=== PATIENT | female | born 1960 | race African-American/Black ===

== ENCOUNTER 2017-01-05 19:06 | Emergency (ER) | payer MEDICARE, MEDICAID ==
[~2017-01-05] VITALS: Ht 157.5 cm; Wt 90.0 kg
[~2017-01-05 19:06] MED LIST: ATOR40TA16 PO; DEPA500T3 PO; DETR2CAP PO; FURO1TAB62 PO; ISOS30TA3 PO; L-CA500C2 PO; LISI-515 PO; LORA10TA PO; METF1000 PO; METO-309 PO; MIRA33504 PO; TRAD5TAB PO; VITA100064 PO
[2017-01-05 19:08] VITALS: BP 234/110; PULSE 84; RESP 18; TEMP 97.9; O2SAT 98
--- NOTE | 2017-01-05 19:29 | PD ---
HPI Chief Complaint: Skin Problem Time Seen by Provider: 19:29 Travel History International Travel<30 days: No Contact w/Intl Traveler<30days: No Traveled to known affect area: No History of Present Illness HPI 56-year-old female with history of hypertension and diabetes presents to emergency department for evaluation of an urticarial-like rash on her neck. Patient is uncertain if she was bitten by an insect. Does not recall any new creams or exposures. Denies any tongue swelling or sensation of shortness of breath. Patient does not have the rash anywhere else. She has no other symptoms to report. PFSH Past Medical History Arthritis: Yes Asthma: No Autoimmune Disease: No Blood Disorders: No Bipolar Disorder: Yes Anxiety: No Depression: Yes Heart Rhythm Problems: No Cancer: Yes (history of renal carcinoma) Cardiovascular Problems: Yes (HTN) High Cholesterol: No Chemotherapy: No Chest Pain: No Congestive Heart Failure: No COPD: No Cerebrovascular Accident: No Diabetes: Yes Diminished Hearing: No Endocrine: Yes Gastrointestinal Disorders: No GERD: No Glaucoma: No Genitourinary: No Headaches: No Hepatitis: No Hiatal Hernia: No Hypertension: Yes Immune Disorder: No Kidney Stones: No Musculoskeletal: No Neurologic: No Psychiatric: Yes (Schizoaffective Disorder) Reproductive: No Respiratory: No Immunizations Current: No Migraines: No Myocardial Infarction: No Radiation Therapy: No Renal Failure: No Schizophrenia: Yes Seizures: Yes (patient admits to one seizure) Sickle Cell Disease: No Sleep Apnea: No Thyroid Disease: Yes (HYPOTHYROID) Ulcer: No Menopausal: Yes Tubal Ligation: Yes Past Surgical History Abdominal Surgery: Yes (CHOLECYSTECTOMY) AICD: No Appendectomy: No Arteriovenous Shunt: No Cardiac Surgery: No Cholecystectomy: Yes Ear Surgery: No Endocrine Surgery: No Eye Surgery: No Genitourinary Surgery: Yes (RT KIDNEY REMOVED) Gynecologic Surgery: Yes (TUBAL LIGATION) Insulin Pump: No Joint Replacement: No Neurologic Surgery: No Oral Surgery: No Pacemaker: No Thoracic Surgery: No Other Surgery: Yes (RENAL SURGERY FOR RENAL CANCER) Social History Alcohol Use: No Tobacco Use: No (quit 2014) Substance Use: No Allergies-Medications (Allergen,Severity, Reaction): Coded Allergies: Haldol (Verified Allergy, Severe, 01/05/17) Zyprexa (Verified Allergy, Severe, 01/05/17) Zoloft (Verified Allergy, Unknown, 01/05/17) Reported Meds & Prescriptions Reported Meds & Active Scripts Active Zantac (Ranitidine HCl) 150 Mg Tab 150 Mg PO BID 3 Days Loratadine 10 Mg Tab 10 Mg PO DAILY Isosorbide Mononitrate ER (Isosorbide Mononitrate) 30 Mg Daniela 30 Mg PO DAILY Tradjenta (Linagliptin) 5 Mg Tab 5 Mg PO DAILY l-Carnitine (Levocarnitine) 500 Mg Cap 500 Mg PO DAILY Atorvastatin (Atorvastatin Calcium) 40 Mg Tab 40 Mg PO HS Metformin (Metformin HCl) 1,000 Mg Tab 1,000 Mg PO BIDPC With meals Reported Miralax Powder (Polyethylene Glycol 3350 Powder) 17 Gm Powd 17 Gm PO DAILY Mix and dissolve one measuring cap-ful (17 grams) in water or juice. Lopressor (Metoprolol Tartrate) 50 Mg Tab 25 Mg PO DAILY Lisinopril 20 Mg Tab 20 Mg PO DAILY Lasix (Furosemide) 20 Mg Tab 20 Mg PO DAILY Depakote ER (Divalproex Sodium) 500 Mg Daniela 1,500 Mg PO HS Detrol LA (Tolterodine Tartrate) 2 Mg Cap 2 Mg PO DAILY Vitamin D (Cholecalciferol) 1,000 Unit Tab 1,000 Units PO DAILY Review of Systems Except as stated in HPI: all other systems reviewed are Neg Physical Exam Narrative GENERAL: Well-nourished, well-developed female patient, ambulatory no acute distress SKIN: Warm and dry. Scattered, confluent subcentimeter raised, blanchable wheal on the anterior neck. No vesicle or pustule formation. This crosses the midline. HEAD: Normocephalic. EYES: No scleral icterus. No injection or drainage. ENT: Mucosa pink and moist. No erythema or exudates. No uvular edema. No uvular , palatal, or tonsillar deviation. Airway patent. Nasal turbinates appear normal without nasal blood, purulent drainage or septal hematoma. NECK: Supple, trachea midline. No JVD or lymphadenopathy. CARDIOVASCULAR: Regular rate and rhythm without murmurs, gallops, or rubs. RESPIRATORY: Breath sounds equal bilaterally. No accessory muscle use. Data Data Last Documented VS Vital Signs Date Time Temp Pulse Resp B/P Pulse Ox O2 Delivery O2 Flow Rate FiO2 01/05/17 20:16 194/93 01/05/17 19:08 97.9 84 18 98 Orders Diphenhydramine (Benadryl) (01/05/17 19:30) Famotidine (Pepcid) (01/05/17 19:30) Diphenhydramine (Benadryl) (01/05/17 19:30) Clonidine (Catapres) (01/05/17 19:30) MDM Medical Decision Making Medical Screen Exam Complete: Yes Emergency Medical Condition: Yes Medical Record Reviewed: Yes Differential Diagnosis Insect bite versus urticaria versus local reaction versus folliculitis versus contact dermatitis Narrative Course 56 year-old female presents to emergency department for evaluation of a rash on her neck. This actually looks like it may be a local reaction to insect bites. Patient is given Benadryl and Pepcid here. She is advised to continue Benadryl as needed for itch and rash at home. Patient is hypertensive here but completely asymptomatic. She is given 0.1 clonidine. Upon reassessment this is decreased and she is discharged home. She agrees to return immediately with any acute worsening of symptoms. Diagnosis Primary Impression: Urticaria Additional Impression: hypertension Referrals: Primary Care Physician Patient Instructions: General Instructions, Urticaria (ED) Additional Instructions: Do not scratch the area Continue Benadryl as directed on the package as needed for itching Follow-up with primary care provider Return immediately with any acute worsening of symptoms Med/Other Pt SpecificInfo: Prescription(s) given Scripts Ranitidine (Zantac)150 Mg Etr940 Mg PO BID 3 Days Ref 0 Prov:Antionette Dupree 01/05/17 Disposition: 01 DISCHARGE HOME Condition: Stable Antionette Dupree Jan 05, 2017 19:29
[2017-01-05] MEDS ORDERED: cloNIDine HCL 0.1 MG TAB PO ONE (19:30)
[2017-01-05] MEDS ORDERED: diphenhydrAMINE HCL 50 MG CAP PO ONE ×2 (19:30)
[2017-01-05] MEDS ORDERED: FAMOTIDINE 20 MG TAB PO ONE (19:30)
[2017-01-05 20:16] VITALS: BP 194/93
[2017-01-05] MEDS ORDERED: ZANT150T2 PO (20:19)
[2017-03-19] MEDS ORDERED: LEVEMIR SQ (10:11)
[2017-03-19] MEDS ORDERED: INSU-126 (10:11)
[2017-03-19] MEDS ORDERED: FLUT50SP EACH NARE (10:42)
[2017-04-10] MEDS ORDERED: MIRA3350 PO (09:14)
[2017-04-10] MEDS ORDERED: LEVEMIR SQ (09:14)
[2017-04-10] MEDS ORDERED: CLAR10CA3 PO (09:14)
[2017-04-26] MEDS ORDERED: METF1000 PO (10:38)
== END 2017-01-05 20:34 | disposition home or self-care (01) ==
LOC: NEPB 19:06
DX: L50.9 Urticaria, unspecified (principal); I10 Essential (primary) hypertension; E11.9 Type 2 diabetes mellitus without complications; E03.9 Hypothyroidism, unspecified
CPT/HCPCS: 99283; Q0163

== ENCOUNTER 2017-08-30 13:38 | Inpatient (IN) | payer MEDICARE, MEDICAID ==
[2017-08-30] VITALS (9 sets, daily range): BP systolic 154–179; BP diastolic 80–93; PULSE 83–111; RESP 14–21; TEMP 98.4–99; O2SAT 96–100
[~2017-08-30] VITALS: Ht 157.5 cm; Wt 90.2 kg
[~2017-08-30 13:38] MED LIST changes: +CHLO200T5 PO; +CLAR10CA3 PO; +DOXE25CA2 PO; +FLUT50SP EACH NARE; -FURO1TAB62 PO; +FURO40TA PO; +INSU-126; -L-CA500C2 PO; +LEVEMIR SQ; +LEVO1CAP6 PO; -LORA10TA PO; -METO-309 PO; +METO25TA3 PO; +MIRA3350 PO; -MIRA33504 PO; +[UNRECOGNIZED DRUG - CODE]
[2017-08-30] MEDS ORDERED: LEVEMIR SQ (14:47)
--- NOTE | 2017-08-30 14:50 | PD ---
HPI Chief Complaint: Fall Time Seen by Provider: 14:37 Travel History International Travel<30 days: No Contact w/Intl Traveler<30days: No Traveled to known affect area: No History of Present Illness HPI Patient comes in for evaluation status post slip and fall that occurred around 6 AM this morning. Patient states she was on her way to [facility] to get some eggs when she slipped in the wet grass hitting her face on the concrete. Patient states that she got her eggs and milk and transported back home by police because she had to meet the maintenance worker municipal. Patient states that she's been having a headache and right-sided facial pain since. Patient denies doing anything for this prior comes emergency Department. Denies anything making it better. Touching her face makes it worse. Patient denies any chest pain, shortness of breath, change in vision, numbness or tingling anywhere, neck pain , back pain, loss or change in bowel or bladder, or being on any blood thinners. PFSH Past Medical History Arthritis: Yes Asthma: No Autoimmune Disease: No Blood Disorders: No Bipolar Disorder: Yes Anxiety: No Depression: Yes Heart Rhythm Problems: No Cancer: Yes (history of renal carcinoma) Cardiovascular Problems: Yes (HTN) High Cholesterol: No Chemotherapy: No Chest Pain: No Congestive Heart Failure: No COPD: No Cerebrovascular Accident: No Diabetes: Yes Diminished Hearing: No Endocrine: Yes Gastrointestinal Disorders: No GERD: No Glaucoma: No Genitourinary: No Headaches: No Hepatitis: No Hiatal Hernia: No Hypertension: Yes Immune Disorder: No Kidney Stones: No Musculoskeletal: No Neurologic: No Psychiatric: Yes (Schizoaffective Disorder) Reproductive: No Respiratory: No Immunizations Current: No Migraines: No Myocardial Infarction: No Radiation Therapy: No Renal Failure: No Schizophrenia: Yes Seizures: Yes (patient admits to one seizure) Sickle Cell Disease: No Sleep Apnea: No Thyroid Disease: Yes (HYPOTHYROID) Ulcer: No ?: Not Menopausal: Yes Tubal Ligation: Yes Past Surgical History Abdominal Surgery: Yes (CHOLECYSTECTOMY) AICD: No Appendectomy: No Arteriovenous Shunt: No Cardiac Surgery: No Cholecystectomy: Yes Ear Surgery: No Endocrine Surgery: No Eye Surgery: No Genitourinary Surgery: Yes (RT KIDNEY REMOVED) Gynecologic Surgery: Yes (TUBAL LIGATION) Insulin Pump: No Joint Replacement: No Neurologic Surgery: No Oral Surgery: No Pacemaker: No Thoracic Surgery: No Other Surgery: Yes (RENAL SURGERY FOR RENAL CANCER) Social History Alcohol Use: No Tobacco Use: No (quit 2014) Substance Use: No Allergies-Medications (Allergen,Severity, Reaction): Coded Allergies: haloperidol (Unverified Allergy, Severe, 08/30/17) olanzapine (Unverified Allergy, Severe, 08/30/17) sertraline (Unverified Allergy, Unknown, 08/30/17) Reported Meds & Prescriptions Reported Meds & Active Scripts Active Fluticasone Nasal [place] 50 Mcg/Act Naspr 50 Mcg EACH NARE BID 50 mcg/spray Levemir Inj (Insulin Detemir) 1,000 unit/ 10 ML Vial 5 Units SQ DAILY@0900 Do not mix with any other Insulin. l-Carnitine (Levocarnitine l-Tartrate) 500 Mg Cap 500 Cap PO DAILY Trueplus Insulin Syringe/ 31G X 5/16" 0.5 ml (Insulin Syringe/Needle U-100) 1 Mis Mis Syringe Furosemide 40 Mg Tab 40 Mg PO DAILY Metoprolol Tartrate 25 Mg Tab 25 Mg PO DAILY Lisinopril 20 Mg Tab 20 Mg PO DAILY Claritin (Loratadine) 10 Mg Cap 10 Mg PO DAILY Isosorbide Mononitrate ER (Isosorbide Mononitrate) 30 Mg Daniela 30 Mg PO DAILY Metformin (Metformin HCl) 1,000 Mg Tab 1,000 Mg PO BIDPC With meals Easy Comfort Pen Maxwell 31G X 6 mm (Insulin Pen Needle/Easy Comfort 31G X 6mm) 1 Mis Mis 1 Box .ROUTE DIRECTED Tradjenta (Linagliptin) 5 Mg Tab 5 Mg PO DAILY Atorvastatin (Atorvastatin Calcium) 40 Mg Tab 40 Mg PO HS Reported Levemir Inj (Insulin Detemir) 1,000 unit/ 10 ML Vial 15 Units SQ HS Do not mix with any other Insulin. Doxepin (Doxepin HCl) 25 Mg Cap 10 Mg PO HS Chlorpromazine (Chlorpromazine HCl) Unknown Strength Tab Unknown Dose PO Q6H PRN Depakote ER (Divalproex Sodium) 500 Mg Daniela 1,500 Mg PO HS Detrol LA (Tolterodine Tartrate) 2 Mg Cap 2 Mg PO DAILY Vitamin D3 (Cholecalciferol) 1,000 Unit Tab 1,000 Units PO DAILY Review of Systems Except as stated in HPI: all other systems reviewed are Neg Physical Exam Narrative GENERAL: Well-developed, overly nourished, in no acute distress, and non-ill appearing. SKIN: Warm and dry. Abrasions and soft tissue swelling noted right face that is tender to palpation. HEAD: Atraumatic. Normocephalic. No bony point tenderness or crepitus noted throughout the scalp and facial bones. EYES: PERRLA. EOMI. No scleral icterus. No injection or drainage. No hyphema. Corneas are clear. No foreign body noted. ENT: No nasal bleeding or discharge. Mucous membranes pink and moist. NECK: Trachea midline. Supple. No nuclear rigidity. No midline tenderness or crepitus present over midline of the cervical spine. RESPIRATORY: No accessory muscle use. No respiratory distress. MUSCULOSKELETAL: No obvious deformities. No clubbing. No cyanosis. No edema. Full range of motion. Pelvic stable. No midline tenderness or crepitus throughout spinal column. NEUROLOGICAL: Awake and alert. No obvious cranial nerve deficits. Motor grossly within normal limits. Normal speech. Normal gait. PSYCHIATRIC: Appropriate mood and affect; insight and judgment normal. Data Data Last Documented VS Vital Signs Date Time Temp Pulse Resp B/P (MAP) Pulse Ox O2 Delivery O2 Flow Rate FiO2 08/30/17 15:42 91 16 166/85 (112) 96 08/30/17 15:38 Room Air 08/30/17 13:39 98.4 Orders Orders Ice/Cold Pack (08/30/17 14:42) Ct Brain W/O Iv Contrast(Rout) (08/30/17 ) Ct Facial Bones W/O Iv Cont (08/30/17 ) Ct Cerv Spine W/O Contrast (08/30/17 ) Wound Care (08/30/17 14:46) Tetanus/Diphtheria Tox Adult (Tetanus/Di (08/30/17 15:00) Sodium Chlorid 0.9% 500 Ml Inj (Ns 500 M (08/30/17 15:00) Acetaminophen (Tylenol) (08/30/17 15:00) Basic Metabolic Panel (Bmp) (08/30/17 15:23) Complete Blood Count With Diff (08/30/17 15:23) Prothrombin Time / Inr (Pt) (08/30/17 15:23) Act Partial Throm Time (Ptt) (08/30/17 15:23) Iv Access Insert/Monitor (08/30/17 15:23) Ecg Monitoring (08/30/17 15:23) Oximetry (08/30/17 15:23) Sodium Chloride 0.9% Flush (Ns Flush) (08/30/17 15:30) Type And Screen (08/30/17 15:25) Consult Neurosurgery (08/30/17 ) Npo After Midnight W/ Po Meds (08/31/17 Breakfast) Admit Order (Ed Use Only) (08/30/17 16:00) (Hub Use Only)Inp Phy Cons/Ref (08/30/17 ) Labs Laboratory Tests Test 08/30/17 15:35 White Blood Count 8.1 TH/MM3 Red Blood Count 3.97 MIL/MM3 Hemoglobin 10.9 GM/DL Hematocrit 33.4 % Mean Corpuscular Volume 84.1 FL Mean Corpuscular Hemoglobin 27.5 PG Mean Corpuscular Hemoglobin Concent 32.7 % Red Cell Distribution Width 14.1 % Platelet Count 195 TH/MM3 Mean Platelet Volume 9.1 FL Neutrophils (%) (Auto) 63.1 % Lymphocytes (%) (Auto) 23.2 % Monocytes (%) (Auto) 12.8 % Eosinophils (%) (Auto) 0.6 % Basophils (%) (Auto) 0.3 % Neutrophils # (Auto) 5.1 TH/MM3 Lymphocytes # (Auto) 1.9 TH/MM3 Monocytes # (Auto) 1.0 TH/MM3 Eosinophils # (Auto) 0.0 TH/MM3 Basophils # (Auto) 0.0 TH/MM3 CBC Comment DIFF FINAL Differential Comment Prothrombin Time 10.4 SEC Prothromb Time International Ratio 0.9 RATIO Activated Partial Thromboplast Time 33.5 SEC MDM Medical Decision Making Medical Screen Exam Complete: Yes Emergency Medical Condition: Yes Interpretation(s) Last Impressions Maxillofacial CT 08/30/17 0000 Signed Impressions: Service Date/Time: August 15:13 - CONCLUSION: 1. There is a minimally depressed right nasal bone fracture with adjacent soft tissue swelling. No other fracture is visualized. 2. Please refer to head CT report for description of the right subdural hematoma. Nacho Buckley MD Head CT 08/30/17 0000 Signed Impressions: Service Date/Time: August 15:09 - CONCLUSION: 1. There is an acute right frontotemporal region subdural hematoma measuring up to a maximal thickness of 16 mm and causing 3 mm of [id number] midline shift. 2. Mild right facial soft tissue swelling. The above findings concerning the acute subdural hematoma were telephoned to Art Castro PA-C at the time of this dictation. Nacho Buckley MD Cervical Spine CT 08/30/17 0000 Signed Impressions: Service Date/Time: August 15:12 - CONCLUSION: 1. No acute fracture or subluxation. Skinny Muñiz MD Differential Diagnosis Fracture, strain, contusion, abrasion, intracranial hemorrhage, closed head injury, other Narrative Course Patient's exam. Initial radiological studies were ordered. Patient was given Tylenol and ice pack was placed. Patient's tetanus shot was updated. Upon receiving phone call from radiologist additional laboratory studies were ordered and call was placed to neurosurgery. Discussed patient with Dr. Conley, who saw and evaluated the patient and spoke with the health professor who is agreeable to admit the patient. Discussed all findings and plan care of patient , who is agreeable for admission. All questions were answered. Patient remained stable throughout ED course. Physician Communication Physician Communication [id number] Aiken's DAKOTA Coto, who recommends having patient placed in IMC and admitted to critical care. Diagnosis Primary Impression: Subdural hematoma Additional Impressions: Nasal bone fracture Qualified Codes: S02.2XXA - Fracture of nasal bones, initial encounter for closed fracture Facial contusion Qualified Codes: S00.83XA - Contusion of other part of head, initial encounter Abrasion Fall Qualified Codes: W19.XXXA - Unspecified fall, initial encounter Admitting Information Admitting Physician Requests: Admit Condition: Stable Ken Castro Aug 30, 2017 14:50
[2017-08-30] MEDS ORDERED: TETANUS/DIPHTHERIA TOXOID ADULT 0.5 ML VIAL IM ONE (15:00)
[2017-08-30] MEDS ORDERED: SODIUM CHLORID 0.9% 500 ML INJ 500 ML IV ONE (15:00)
[2017-08-30] MEDS ORDERED: ACETAMINOPHEN 500 MG CPLT PO ONE (15:00)
--- NOTE | 2017-08-30 15:27 | RADRPT ---
EXAM DATE/TIME: 08/30/2017 15:09 [facility] COMPARISON: No previous studies available for comparison. INDICATIONS : Trauma, fall. Hit head. RADIATION DOSE: 56.35 CTDIvol (mGy) MEDICAL HISTORY : Cardiovascular disease. Hypertension. Diabetes mellitus type 2.Renal cell carcinoma SURGICAL HISTORY : Nephrectomy, right. ENCOUNTER: Initial ACUITY: 1 day PAIN SCALE: 6/10 LOCATION: cranial TECHNIQUE: Multiple contiguous axial images were obtained of the head. Using automated exposure control and adj ustment of the mA and/or kV according to patient size, radiation dose was kept as low as reasonably a chievable to obtain optimal diagnostic quality images. DICOM format image data is available electro nically for review and comparison. FINDINGS: CEREBRUM: There is a right frontal temporal subdural hematoma measuring up to a maximal thickness of 1.6 cm. It is causing 3 mm of right to left midline shift. No mass lesion or acute infarction. No extra-axial fluid collections are seen. POSTERIOR FOSSA: The cerebellum and brainstem demonstrate no acute finding. The 4th ventricle is midline. The cerebe llopontine angle is unremarkable. EXTRACRANIAL: Visualized sinuses are clear. There is a right maxillary region soft tissue swelling. SKULL: The calvaria is intact. No evidence of skull fracture. CONCLUSION: 1. There is an acute right frontotemporal region subdural hematoma measuring up to a maximal thicknes s of 16 mm and causing 3 mm of [id number] midline shift. 2. Mild right facial soft tissue swelling. The above findings concerning the acute subdural hematoma were telephoned to Art Castro PA-C at the time of this dictation. Nacho Buckley MD on August 30, 2017 at 15:21 Board Certified Radiologist. This report was verified electronically.
[2017-08-30] MEDS ORDERED: SODIUM CHLORIDE 0.9% FLUSH 10 ML FLUSH IV FLUSH PRN ×2 (15:30→16:15)
--- NOTE | 2017-08-30 15:48 | PD ---
Physical Exam Date Seen by Provider: Aug 30, 2017 Data Data Last Documented VS Vital Signs Date Time Temp Pulse Resp B/P (MAP) Pulse Ox O2 Delivery O2 Flow Rate FiO2 08/30/17 15:42 91 16 166/85 (112) 96 08/30/17 15:38 Room Air 08/30/17 13:39 98.4 Orders Orders Ice/Cold Pack (08/30/17 14:42) Ct Brain W/O Iv Contrast(Rout) (08/30/17 ) Ct Facial Bones W/O Iv Cont (08/30/17 ) Ct Cerv Spine W/O Contrast (08/30/17 ) Wound Care (08/30/17 14:46) Tetanus/Diphtheria Tox Adult (Tetanus/Di (08/30/17 15:00) Sodium Chlorid 0.9% 500 Ml Inj (Ns 500 M (08/30/17 15:00) Acetaminophen (Tylenol) (08/30/17 15:00) Basic Metabolic Panel (Bmp) (08/30/17 15:23) Complete Blood Count With Diff (08/30/17 15:23) Prothrombin Time / Inr (Pt) (08/30/17 15:23) Act Partial Throm Time (Ptt) (08/30/17 15:23) Iv Access Insert/Monitor (08/30/17 15:23) Ecg Monitoring (08/30/17 15:23) Oximetry (08/30/17 15:23) Sodium Chloride 0.9% Flush (Ns Flush) (08/30/17 15:30) Type And Screen (08/30/17 15:25) Consult Neurosurgery (08/30/17 ) [facility] Medical Record Reviewed: Yes Supervised Visit with UBALDO: Yes Narrative Course I, Dr. Conley, have reviewed the advance practice practitioner's documentation and am in agreement, met with the patient face to face, made the diagnosis, and the medical decision making was done by me. *My assessment and Findings: Patient is a 57-year-old female with an acute right frontal temporal subdural hematoma measuring 16 mm x 3 mm in size with right to left midline shift after she fell this morning at 6 AM. Reports that she tripped and fell on wet grass this morning and reports "My face landed on the cement." Reports no LOC. She currently is not taking any anticoagulants. She does not have any neurovascular compromise at this time. Case was reviewed with Dr. Aiken who will see patient in consult. Patient will be admitted to the ICU. Patient aware of ich. Diagnosis Primary Impression: Subdural hematoma Admitting Information Admitting Physician Requests: Admit Madalyn Conley DO Aug 30, 2017 15:48
--- NOTE | 2017-08-30 15:51 | RADRPT ---
EXAM DATE/TIME: 08/30/2017 15:13 [facility] COMPARISON: No previous studies available for comparison. INDICATIONS : Trauma, fall. RADIATION DOSE: 26.15 CTDIvol (mGy) MEDICAL HISTORY : Cardiovascular disease. Hypertension. Diabetes mellitus type 2.Renal cell carcinoma. SURGICAL HISTORY : Nephrectomy, right. ENCOUNTER: Initial ACUITY: 1 day PAIN SCORE: 6/10 LOCATION: facial TECHNIQUE: Volumetric scanning of the facial bones was performed. Using automated exposure control and adjustme nt of the mA and/or kV according to patient size, radiation dose was kept as low as reasonably achiev able to obtain optimal diagnostic quality images. DICOM format image data is available electronicGuang[place] [employer] y for review and comparison. FINDINGS: ORBITS: The orbital structures are intact. The retroconal structures have a normal configuration. No radiop aque foreign bodies are seen. The lenses are normally located. NASAL BONE: There is a minimally depressed right nasal bone fracture. ZYGOMATIC ARCHES: Symmetric without evidence of fracture. SINUSES: No significant sinus abnormality is identified. There is mucoperiosteal thickening in the right maxil torsten antrum. NASAL CAVITY: The nasal septum is intact and midline. The lacrimal ducts are intact. SOFT TISSUES: No radiopaque foreign bodies seen. There is right nasal and maxillary region soft tissue swelling. INTRACRANIAL: There is a right subdural hematoma. OTHER: The mandible and pterygoid plates are intact. CONCLUSION: 1. There is a minimally depressed right nasal bone fracture with adjacent soft tissue swelling. No ot her fracture is visualized. 2. Please refer to head CT report for description of the right subdural hematoma. Nacho Buckley MD on August 30, 2017 at 15:45 Board Certified Radiologist. This report was verified electronically.
--- NOTE | 2017-08-30 15:54 | RADRPT ---
EXAM DATE/TIME: 08/30/2017 15:12 [facility] COMPARISON: No previous studies available for comparison. INDICATIONS : Trauma, fall. Neck pain. RADIATION DOSE: 28.03 CTDIvol (mGy) MEDICAL HISTORY : Cardiovascular disease. Hypertension. Diabetes mellitus type 2.Renal carcimona. SURGICAL HISTORY : Nephrectomy, right. ENCOUNTER: Initial ACUITY: 1 day PAIN SCALE: 6/10 LOCATION: neck TECHNIQUE: Volumetric scanning of the cervical spine was performed. Multiplanar reconstructions in the sagittal, coronal and oblique axial planes were performed. Using automated exposure control and adjustment o f the mA and/or kV according to patient size, radiation dose was kept as low as reasonably achievable to obtain optimal diagnostic quality images. DICOM format image data is available electronically f or review and comparison. FINDINGS: Vertebral body heights are maintained. Osseous structures are intact without evidence for acute bony fracture. Dens is intact. Sagittal alignment is maintained. There is a normal C1-2 relationship. Face ts are normally aligned. There is no significant prevertebral soft tissue hematoma. No significant ce rvical adenopathy or gross mass. The thyroid appears unremarkable. Visualized lung apices are clear w ithout pneumothorax. CONCLUSION: 1. No acute fracture or subluxation. Skinny Muñiz MD on August 30, 2017 at 15:50 Board Certified Radiologist. This report was verified electronically.
--- NOTE | 2017-08-30 16:10 | PD.CONS ---
[facility] Service neurosurg Consult Requested By Dr Downs Reason for Consult Subdural hematioma Primary Care Physician Unknown History of Present Illness This is a 57-year-old female who apparently is status post slip and fall around 6 AM this morning. She states she was on her way to [facility] she had some eggs when she slipped in the wet grass hitting her face on the concrete. No loss of consciousness. Not seizure activity noted. Not tongue biting. No incontinence of stool or urine. ..She took her eggs and milk and transported back home because she had to meet the account maintenance representative. Patient states that she' s been having a headache and right-sided facial pain since. She denies any chest pain, shortness of breath, change in vision, numbness or tingling anywhere , neck pain, back pain, loss or change in bowel or bladder, or being on any blood thinners. She is moving where both upper and lower extremities without any focal deficit. CT of the brain showed a right sided accurate subdural hematoma causing mass effect and midline shift. The subdural was hematoma 1.6 cm thick with a 3 mm right to left shift. Maxillofacial CT revealed a nondisplaced right nasal fracture. CT spine negative. Neurosurgical consultation was requested Review of Systems Constitutional: DENIES: Diaphoretic episodes, Fatigue, Fever, Weight gain, Weight loss, Chills, Dizziness, Change in appetite, Night Sweats Endocrine: DENIES: Abnorml menstrual pattern, Heat/cold intolerance, Polydipsia , Polyuria, Polyphagia Eyes: DENIES: Blurred vision, Diplopia, Eye inflammation, Eye pain, Vision loss , Photosensitivity, Double Vision Ears, nose, mouth, throat: DENIES: Tinnitus, Hearing loss, Vertigo, Nasal discharge, Oral lesions, Throat pain, Hoarseness, Ear Pain, Running Nose, Epistaxis, Sinus Pain, Toothache, Odynophagia Respiratory: DENIES: Apneas, Cough, Snoring, Wheezing, Hemoptysis, Sputum production, Shortness of breath Cardiovascular: DENIES: Chest pain, Palpitations, Syncope, Dyspnea on Exertion , PND, Lower Extremity Edema, Orthopnea, Claudication Gastrointestinal: DENIES: Abdominal pain, Black stools, Bloody stools, Constipation, Diarrhea, Nausea, Vomiting, Difficulty Swallowing, Anorexia Genitourinary: DENIES: Abnormal vaginal bleeding, Dysmenorrhea, Dyspareunia, Sexual dysfunction, Urinary frequency, Urinary incontinence, Urgency, Hematuria , Dysuria, Nocturia, Vaginal discharge Musculoskeletal: DENIES: Joint pain, Muscle aches, Stiffness, Joint Swelling, Back pain, Neck pain Integumentary: DENIES: Abnormal pigmentation, Pruritus, Rash, Nail changes, Breast masses, Breast skin changes, Nipple discharge Hematologic/lymphatic: DENIES: Bruising, Lymphadenopathy Neurologic: COMPLAINS OF: Headache, DENIES: Abnormal gait, Localized weakness, Paresthesias, Seizures, Speech Problems, Tremor, Poor Balance Psychiatric: DENIES: Anxiety, Confusion, Mood changes, Depression, Hallucinations, Agitation, Suicidal Ideation, Homicidal Ideation, Delusions Past Family Social History Allergies: Coded Allergies: haloperidol (Unverified Allergy, Severe, 08/30/17) olanzapine (Unverified Allergy, Severe, 08/30/17) sertraline (Unverified Allergy, Unknown, 08/30/17) Past Medical History Arthritis: Yes Asthma: No Autoimmune Disease: No Blood Disorders: No Bipolar Disorder: Yes Anxiety: No Depression: Yes Heart Rhythm Problems: No Cancer: Yes (history of renal carcinoma) Cardiovascular Problems: Yes (HTN) High Cholesterol: No Chemotherapy: No Chest Pain: No Congestive Heart Failure: No COPD: No Cerebrovascular Accident: No Diabetes: Yes Diminished Hearing: No Endocrine: Yes Gastrointestinal Disorders: No GERD: No Glaucoma: No Genitourinary: No Headaches: No Hepatitis: No Hiatal Hernia: No Hypertension: Yes Immune Disorder: No Kidney Stones: No Musculoskeletal: No Neurologic: No Psychiatric: Yes (Schizoaffective Disorder) Reproductive: No Respiratory: No Immunizations Current: No Migraines: No Myocardial Infarction: No Radiation Therapy: No Renal Failure: No Schizophrenia: Yes Seizures: Yes (patient admits to one seizure) Sickle Cell Disease: No Sleep Apnea: No Thyroid Disease: Yes (HYPOTHYROID) Ulcer: No ?: Not Menopausal: Yes Tubal Ligation: Yes Past Surgical History Abdominal Surgery: Yes (CHOLECYSTECTOMY) AICD: No Appendectomy: No Arteriovenous Shunt: No Cardiac Surgery: No Cholecystectomy: Yes Ear Surgery: No Endocrine Surgery: No Eye Surgery: No Genitourinary Surgery: Yes (RT KIDNEY REMOVED) Gynecologic Surgery: Yes (TUBAL LIGATION) Insulin Pump: No Joint Replacement: No Neurologic Surgery: No Oral Surgery: No Pacemaker: No Thoracic Surgery: No Other Surgery: Yes (RENAL SURGERY FOR RENAL CANCER) Active Ordered Medications Current Medications Tetanus/ Diphtheria Toxoids (Tetanus/ Diphtheria Tox Adult) 0.5 ml ONCE ONCE IM Last administered on 08/30/17 15:42; Start 08/30/17 at 15:00; Stop at 15:03; Status DC Sodium Chloride 500 ml @ 500 mls/hr BOLUS ONCE IV Last administered on 15:42; Start 08/30/17 at 15:00; Stop 08/30/17 at 15:59; Status DC Acetaminophen (Tylenol) 500 mg ONCE ONCE PO Last administered on 08/30/17 15 :42; Start 08/30/17 at 15:00; Stop 08/30/17 at 15:03; Status DC Sodium Chloride (NS Flush) 2 ml UNSCH PRN IV FLUSH FLUSH AFTER USING IV ACCESS ; Start 08/30/17 at 15:30 Family History Her family history was reviewed and found to be noncontributory to these traumatic event Social History Alcohol Use: No Tobacco Use: No (quit 2014) Substance Use: No Physical Exam Vital Signs Vital Signs Date Time Temp Pulse Resp B/P (MAP) Pulse Ox O2 Delivery O2 Flow Rate FiO2 08/30/17 15:42 91 16 166/85 (112) 96 08/30/17 15:38 97 Room Air 08/30/17 13:39 98.4 111 16 169/93 (118) 98 Physical Exam The patient is alert, awake and oriented to time, place and person. Speech is fluent. Higher cognitive functions are normal. GCS 15, Facial abrasions. subconjunctival hemorrhage Cranial nerve examination demonstrates the pupils to be equal, round, and reactive to light. Extra-ocular movements are intact. Facial motor and sensory function are normal and symmetrical. Gross hearing is intact, bilaterally. The uvula is midline and elevates symmetrically with the soft palate. Sternocleidomastoid and trapezius muscles have normal and symmetrical strength. Other cranial nerves are intact. Neck is soft and supple. Cervical spine has a full range of motion in anterior flexion, extension, lateral bending, and rotation without pain. There is no tenderness to palpation to the spinous processes or paraspinal muscles. Muscle testing reveals normal bulk and tone overall without rigidity, spasticity , fasciculations, or atrophy. Muscle strength is 5/5 in all muscle groups of both upper extremities including deltoid, biceps, triceps, brachioradialis, wrist extension and microgrinder operator. In the lower extremities, strength is 5/5 in both iliopsoas, quadriceps, hamstrings, plantar flexion, dorsiflexion, and extensor hallicus longus. Sensory examination is intact to light touch and sharp/dull discrimination in both the upper and lower extremities, symmetrically. Deep tendon reflexes are 2+ and symmetrical in the biceps, triceps, and brachioradialis, bilaterally, in the upper extremities. In the lower extremities , the patellar and Achilles are 2+, bilaterally. There is a bilateral plantar flexion response. Hoffmanns sign is negative. There is no clonus or other abnormal reflexes noted. Cerebellar examination is intact to [id number] test, rapid rhythmic alternating motion. There is no dysmetria, dysdiadochokinesia, truncal ataxia, or tremor. Imaging Last [address] 08/30/17 Signed Impressions: Service Date/Time: August 15:13 - CONCLUSION: 1. There is a minimally depressed right nasal bone fracture with adjacent soft tissue swelling. No other fracture is visualized. 2. Please refer to head CT report for description of the right subdural hematoma. Nacho Buckley MD Head CT 08/30/17 Signed Impressions: Service Date/Time: August 15:09 - CONCLUSION: 1. There is an acute right frontotemporal region subdural hematoma measuring up to a maximal thickness of 16 mm and causing 3 mm of [id number] midline shift. 2. Mild right facial soft tissue swelling. The above findings concerning the acute subdural hematoma were telephoned to Art Castro PA-C at the time of this dictation. Nacho Buckley MD Cervical Spine CT 08/30/17 Signed Impressions: Service Date/Time: August 15:12 - CONCLUSION: 1. No acute fracture or subluxation. Skinny Muñiz MD Attending Statement traumatic brain injury. Subdural hematoma. Neuro checks in a serial fashion. Recommend surgical decompression Keppra 500 mg IV every 12 hours. HTN. Treat with antihypertensives as needed Nasal fracture. Consult plastic surgeon acetaminophen/cooling blanket as needed for temperature greater than 100.4 respiratory aggressive pulmonary toilette, nasotracheal suction, and breathing treatments with nebulizers. Nutrition. NPO Anemia. Chronic. Monitor H and H Renal. monitor closely urine output, BUN and creatinine Porter. Monitor intake and output. Monitor electrolytes and replace as indicated per ICU electrolyte replacement protocol. ENDO:Acute hyperglycemia secondary to trauma. Monitor bedside glucose and initiate low-dose insulin sliding scale as indicated for glucose greater than 180 Protonix for stress ulcer prophylaxis Fermin hose and SCD's for DVT prophylaxis. Yannick Aiken MD Aug 30, 2017 16:10
[2017-08-30 16:12] LABS: AUTOMATED NEUTROPHIL # 5.1 TH/MM3 (1.8-7.7); BASOPHIL % 0.3 % (0.0-2.0); EOSINOPHIL % 0.6 % (0.0-4.0); HEMATOCRIT 33.4 % (35.0-46.0); HEMO FLAGS DIFF FINAL; LYMPH % 23.2 % (9.0-44.0); LYMPHOCYTE # 1.9 TH/MM3 (1.0-4.8); MEAN CELL VOLUME 84.1 FL (80.0-100.0); MEAN CORPUSCULAR HEMOGLOBIN 27.5 PG (27.0-34.0); MEAN CORPUSCULAR HGB CONC 32.7 % (32.0-36.0); MONO % 12.8 % (0.0-8.0); NEUT % 63.1 % (16.0-70.0); PLATELET COUNT 195 TH/MM3 (150-450); RED BLOOD COUNT 3.97 MIL/MM3 (4.00-5.30); RED CELL DISTRIBUTION WIDTH 14.1 % (11.6-17.2); WHITE BLOOD COUNT 8.1 TH/MM3 (4.0-11.0)
[2017-08-30] MEDS ORDERED: CLEVIDIPINE INJ 50 ML IV PRN (16:15)
[2017-08-30] MEDS ORDERED: ACETAMINOPHEN/HYDROcodone 325 MG/5 MG TAB PO PRN (16:15)
[2017-08-30] MEDS ORDERED: ACETAMINOPHEN 325 MG TAB PO PRN (16:15)
[2017-08-30] MEDS ORDERED: LACTULOSE SYRUP 20 GM/30 ML CUP PO PRN (16:15)
[2017-08-30] MEDS ORDERED: MISCELLANEOUS NURSING INFORMATION XX SCH (16:15)
[2017-08-30] MEDS ORDERED: ONDANSETRON HCL 4 MG/2 ML VIAL IV PUSH PRN (16:15)
[2017-08-30] MEDS ORDERED: BISACODYL 10 MG SUPP RECTAL PRN (16:15)
[2017-08-30] MEDS ORDERED: GLUCAGON 1 MG/ML VIAL OTHER PRN (16:15)
[2017-08-30] MEDS ORDERED: CHLORHEXIDINE GLUCONATE 2 % 1 PACK (2 CLOTHS) TOP PRN (16:15)
[2017-08-30] MEDS ORDERED: DEXTROSE 50% IN WATER 50 ML VIAL(D50) IV PUSH PRN (16:15)
[2017-08-30] MEDS ORDERED: MAGNESIUM HYDROXIDE SUSP 30 ML CUP PO PRN (16:15)
[2017-08-30] MEDS ORDERED: SENNOSIDES 8.6 MG TAB PO PRN (16:15)
[2017-08-30 16:22] LABS: APTT (PATIENT) 33.5 SEC (24.3-30.1); INTERNATIONAL NORMALIZED RATIO 0.9 RATIO; PROTHROMBIN TIME - PATIENT 10.4 SEC (9.8-11.6)
--- NOTE | 2017-08-30 16:28 | HHI.HP ---
[facility] Service Critical Care Medicine Primary Care Physician Unknown Admission Diagnosis Subdural hematoma Diagnosis: (1) Subdural hematoma Diagnosis: Principal (2) Nasal fracture Diagnosis: Principal (3) Normocytic anemia Diagnosis: Secondary (4) Elevated partial thromboplastin time (PTT) Diagnosis: Principal (5) Osteoarthritis Diagnosis: Secondary (6) Hypothyroidism Diagnosis: Secondary (7) BMI 36.0-36.9,adult Diagnosis: Principal (8) Urinary incontinence Diagnosis: Secondary (9) Diabetes mellitus type 2 in obese Diagnosis: Secondary (10) hypertension Diagnosis: Principal (11) Facial contusion Diagnosis: Principal (12) Fall Diagnosis: Principal (13) Hyperlipemia Diagnosis: Secondary (14) Schizoaffective disorder Diagnosis: Principal (15) BMI 36.0-36.9,adult Diagnosis: Secondary Chief Complaint: Status post fall headache Travel History International Travel<30 Days: No Contact w/Intl Traveler <30 Da: No Traveled to Known Affected Are: No History of Present Illness 57-year-old AA female . Date of admission 08/30/2017. Past medical history includes schizoaffective/bipolar, depression, seizure disorder, hypertension, dyslipidemia, diabetes and allergic rhinitis. She is not on any blood thinners or aspirin. This patient was walking from [employer] in approximately 6 AM this morning when she suffered a fall and landed on the right side of her face.. She states she slipped in the wet grass hitting her face on the concrete. No loss of consciousness. Not seizure activity noted. Not tongue biting. No incontinence of stool or urine. ..She took her eggs and milk and transported back home because she had to meet the maintenance service dispatcher. Patient states that she's been having a headache and right-sided facial pain since. CT of the brain showed a right frontotemporal subdural hematoma 1.6 cm with a 3 mm right to left shift. Maxillofacial CT revealed a nondisplaced right nasal fracture. CT spine negative. CBC showed normocytic anemia. BMP is pending. Elevated PTT coags at 33. Patient was loaded with 500 mg levetiracetam, given as needed for elevated blood pressure stabilized in the ED. Neurosurgical consultation was requested with Dr. Aiken. Review of Systems Constitutional: DENIES: Fatigue, Fever, Weight gain, Weight loss Endocrine: DENIES: Abnorml menstrual pattern, Heat/cold intolerance, Polydipsia , Polyuria Eyes: DENIES: Blurred vision, Eye pain, Double Vision Ears, nose, mouth, throat: DENIES: Tinnitus Respiratory: DENIES: Apneas Cardiovascular: DENIES: Chest pain Gastrointestinal: DENIES: Abdominal pain, Nausea, Vomiting Genitourinary: DENIES: Urinary incontinence Musculoskeletal: DENIES: Joint pain Integumentary: COMPLAINS OF: Rash, DENIES: Abnormal pigmentation Hematologic/lymphatic: COMPLAINS OF: Bruising Immunologic/allergic: DENIES: Eczema Neurologic: COMPLAINS OF: Headache, Seizures, DENIES: Abnormal gait, Localized weakness, Paresthesias Psychiatric: COMPLAINS OF: Anxiety, DENIES: Confusion, Depression Past Family Social History Allergies: Coded Allergies: haloperidol (Unverified Allergy, Severe, 08/30/17) olanzapine (Unverified Allergy, Severe, 08/30/17) sertraline (Unverified Allergy, Unknown, 08/30/17) Past Medical History Depression Bipolar disorder Schizoaffective disorder Hypothyroidism Hypertension Dyslipidemia Osteoarthritis Diabetes History of renal cell carcinoma allergic rhinitis Urinary incontinence Past Surgical History Cholecystectomy Tubal ligation Right nephrectomy Reported Medications Active Fluticasone Nasal [place] 50 Mcg/Act Naspr 50 Mcg EACH NARE BID 50 mcg/spray Levemir Inj (Insulin Detemir) 1,000 unit/ 10 ML Vial 5 Units SQ DAILY@0900 Do not mix with any other Insulin. l-Carnitine (Levocarnitine l-Tartrate) 500 Mg Cap 500 Cap PO DAILY Trueplus Insulin Syringe/ 31G X 5/16" 0.5 ml (Insulin Syringe/Needle U-100) 1 Mis Mis Syringe Furosemide 40 Mg Tab 40 Mg PO DAILY Metoprolol Tartrate 25 Mg Tab 25 Mg PO DAILY Lisinopril 20 Mg Tab 20 Mg PO DAILY Claritin (Loratadine) 10 Mg Cap 10 Mg PO DAILY Isosorbide Mononitrate ER (Isosorbide Mononitrate) 30 Mg Daniela 30 Mg PO DAILY Metformin (Metformin HCl) 1,000 Mg Tab 1,000 Mg PO BIDPC With meals Easy Comfort [place] 31G X 6 mm (Insulin Pen Needle/Easy Comfort 31G X 6mm) 1 Mis Mis 1 Box .ROUTE DIRECTED Tradjenta (Linagliptin) 5 Mg Tab 5 Mg PO DAILY Atorvastatin (Atorvastatin Calcium) 40 Mg Tab 40 Mg PO HS Reported Levemir Inj (Insulin Detemir) 1,000 unit/ 10 ML Vial 15 Units SQ HS Do not mix with any other Insulin. Doxepin (Doxepin HCl) 25 Mg Cap 10 Mg PO HS Chlorpromazine (Chlorpromazine HCl) Unknown Strength Tab Unknown Dose PO Q6H PRN Depakote ER (Divalproex Sodium) 500 Mg Daniela 1,500 Mg PO HS Detrol LA (Tolterodine Tartrate) 2 Mg Cap 2 Mg PO DAILY Vitamin D3 (Cholecalciferol) 1,000 Unit Tab 1,000 Units PO DAILY Active Ordered Medications Reviewed in EMR Family History Father with bipolar disorder. Brother with alcoholism Social History Quit alcohol years ago. Quit tobacco 2014. Denies illicit drug use. Physical Exam Vital Signs Vital Signs Date Time Temp Pulse Resp B/P (MAP) Pulse Ox O2 Delivery O2 Flow Rate FiO2 08/30/17 15:42 91 16 166/85 (112) 96 08/30/17 15:38 97 Room Air 08/30/17 13:39 98.4 111 16 169/93 (118) 98 Physical Exam GENERAL: 49-year-old female, resting in bed on room air SKIN: Warm and dry. Abrasions to the right cheek and chin with evolving ecchymoses HEAD: Atraumatic. Normocephalic. EYES: Pupils equal and round about 3 mm bilaterally and reactive. Right leg is somewhat swollen protuberant. No scleral icterus. No injection or drainage. ENT: No nasal bleeding or discharge. Mucous membranes pink and moist. NECK: Trachea midline. No JVD. CARDIOVASCULAR: Regular rate and rhythm. S1, S2. No S4. Without murmur RESPIRATORY: Clear to auscultation. Breath sounds equal bilaterally. GASTROINTESTINAL: Abdomen soft, non-tender, nondistended. Bowel sounds are sluggish but appreciated MUSCULOSKELETAL: Extremities without significant peripheral edema. No obvious deformities. NEUROLOGICAL: Awake and alert. No obvious cranial nerve deficits. Motor grossly within normal limits. Five out of 5 muscle strength in the arms and legs. Normal speech. PSYCHIATRIC: Appropriate mood and affect; insight and judgment normal. Laboratory Laboratory Tests Test 08/30/17 15:35 White Blood Count 8.1 Red Blood Count 3.97 Hemoglobin 10.9 Hematocrit 33.4 Mean Corpuscular Volume 84.1 Mean Corpuscular Hemoglobin 27.5 Mean Corpuscular Hemoglobin Concent 32.7 Red Cell Distribution Width 14.1 Platelet Count 195 Mean Platelet Volume 9.1 Neutrophils (%) (Auto) 63.1 Lymphocytes (%) (Auto) 23.2 Monocytes (%) (Auto) 12.8 Eosinophils (%) (Auto) 0.6 Basophils (%) (Auto) 0.3 Neutrophils # (Auto) 5.1 Lymphocytes # (Auto) 1.9 Monocytes # (Auto) 1.0 Eosinophils # (Auto) 0.0 Basophils # (Auto) 0.0 CBC Comment DIFF FINAL Differential Comment Prothrombin Time 10.4 Prothromb Time International Ratio 0.9 Activated Partial Thromboplast Time 33.5 Result Diagram: 08/30/17 1535 Imaging Last Impressions Maxillofacial CT 08/30/17 0000 Signed Impressions: Service Date/Time: August 15:13 - CONCLUSION: 1. There is a minimally depressed right nasal bone fracture with adjacent soft tissue swelling. No other fracture is visualized. 2. Please refer to head CT report for description of the right subdural hematoma. Nacho Buckley MD Head CT 08/30/17 0000 Signed Impressions: Service Date/Time: August 15:09 - CONCLUSION: 1. There is an acute right frontotemporal region subdural hematoma measuring up to a maximal thickness of 16 mm and causing 3 mm of [id number] midline shift. 2. Mild right facial soft tissue swelling. The above findings concerning the acute subdural hematoma were telephoned to Art Castro PA-C at the time of this dictation. Nacho Buckley MD Cervical Spine CT 08/30/17 0000 Signed Impressions: Service Date/Time: August 15:12 - CONCLUSION: 1. No acute fracture or subluxation. MD Marietta Lopes VTE Risk Assessment Caprini VTE Risk Assessment: Mod/High Risk (score >= 2) VTE Pharm Contraindication: Hemorrhage Caprini Risk Assessment Model Point Value = 1 Point Value = 2 Point Value = 3 Point Value = 5 Age 41-60 Minor surgery BMI > 25 kg/m2 Swollen legs Varicose veins or History of unexplained or recurrent spontaneous Oral contraceptives or hormone replacement Sepsis (< 1 month) Serious lung disease, including pneumonia (< 1 month) Abnormal pulmonary function Acute myocardial infarction Congestive heart failure (< 1 month) History of inflammatory bowel disease Medical patient at bed rest Age 61-74 Arthroscopic surgery Major open surgery (> 45 min) Laparoscopic surgery (> 45 min) Malignancy Confined to bed (> 72 hours) Immobilizing plaster cast Central venous access Age >= 75 History of VTE Family history of VTE Factor V Leiden Prothrombin [id number] Lupus anticoagulant Anticardiolipin antibodies Elevated serum homocysteine Heparin-induced thrombocytopenia Other congenital or acquired thrombophilia Stroke (< 1 month) Elective arthroplasty Hip, pelvis, or leg fracture Acute spinal cord injury (< 1 month) Prophylaxis Regimen Total Risk Factor Score Risk Level Prophylaxis Regimen 0-1 Low Early ambulation 2 Moderate Order ONE of the following: *Sequential Compression Device (SCD) *Heparin 5000 units SQ BID 3-4 Higher Order ONE of the following medications: *Heparin 5000 units SQ TID *Enoxaparin/Lovenox 40 mg SQ daily (WT < 150 kg, CrCl > 30 mL/min) *Enoxaparin/Lovenox 30 mg SQ daily (WT < 150 kg, CrCl > 10-29 mL/min) *Enoxaparin/Lovenox 30 mg SQ BID (WT < 150 kg, CrCl > 30 mL/min) AND/OR *Sequential Compression Device (SCD) 5 or more Highest Order ONE of the following medications: *Heparin 5000 units SQ TID (Preferred with Epidurals) *Enoxaparin/Lovenox 40 mg SQ daily (WT < 150 kg, CrCl > 30 mL/min) *Enoxaparin/Lovenox 30 mg SQ daily (WT < 150 kg, CrCl > 10-29 mL/min) *Enoxaparin/Lovenox 30 mg SQ BID (WT < 150 kg, CrCl > 30 mL/min) AND *Sequential Compression Device (SCD) Assessment and Plan Assessment and Plan Neuro/Psych: Right subdural hematoma - 1.6 cm fronto temporal with a 3 mm right to left shift Right closed nondisplaced nasal fracture Schizoaffective disorder Bipolar disorder Depression Seizure disorder NOS CT brain 08/30 revealed a right frontal temporal subdural hematoma 1.6 cm thickness with a 3 mm right to left shift. Nondisplaced right nasal bone fracture. Will admit to [facility] Levetiracetam 500 mg IV twice a day for seizure prophylaxis 7 days Goal keep systolic blood pressure less than 150. Neurochecks Head of bed at [address] in a.m. 08/[address] Aiken/neurosurgery Continue doxepin 10 mg by mouth daily Continue divalproex 1500 mg at night Holding loratadine 10 mg by mouth daily CV: Hypertension Dyslipidemia Continue metoprolol 25 mg daily for hypertension. Continue isosorbide mononitrate 30 mg by mouth daily As needed labetalol, hydralazine, Nitropaste and clevidipine drip to keep systolic blood pressure less than 150 Continue atorvastatin 40 mg by mouth daily for dyslipidemia Resp: Nasal cannula to maintain saturations greater than or equal to 92% Incentive spirometry while awake GI: Patient is currently nothing by mouth Famotidine for GI prophylaxis Docusate sodium/senna for bowel regimen : Incontinence Porter catheter if indicated for accurate I's and O's in a critically ill patient Holding Tolterodine 2 mg by mouth daily. Resume when clinically indicated Endo: Diabetes History of hypothyroidism/thyroid nodules Holding metformin 1000 mg daily andLinagliptin 5 mg daily for diabetes. Sliding-scale insulin with Accu-Cheks to maintain euglycemia Renal: History of renal cell carcinoma status post right nephrectomy Patient is currently on normal saline at 84 cc an hour Monitor urine output Accurate I's and O's Follow-up ER BMP not completed Heme: Normocytic anemia Elevated PTT Monitor CBC daily. Follow trends Does not meet transfusion thresholds at this time ID: Monitor for infection FEN: Replace electrolytes as clinically indicated Holding cholecalciferol 1000 U daily. Resume when clinically indicated MSK: Osteoarthritis Physical therapy evaluate and treat Access - Utilize peripheral IV. Central line if indicated Prophylaxis - GI famotidine - DVT- SCD/holding pharmacological prophylaxis in light of subdural hematoma Level III admission Code Status Full code Discussed Condition With patient. Care plan discussed and all questions answered. Problem Qualifiers (1) Nasal fracture: Qualified Codes: S02.2XXA - Fracture of nasal bones, initial encounter for closed fracture (2) Osteoarthritis: Qualified Codes: M19.90 - Unspecified osteoarthritis, unspecified site (3) Hypothyroidism: Qualified Codes: E03.9 - Hypothyroidism, unspecified (4) Facial contusion: Qualified Codes: S00.83XA - Contusion of other part of head, initial encounter (5) Fall: Qualified Codes: W19.XXXA - Unspecified fall, initial encounter (6) Hyperlipemia: Qualified Codes: E78.00 - Pure hypercholesterolemia, unspecified (7) Schizoaffective disorder: Qualified Codes: F25.0 - Schizoaffective disorder, bipolar type Calvin Rodas MD Aug 30, 2017 16:28
[2017-08-30 16:32] LABS: POTASSIUM 3.9 MEQ/L (3.5-5.1)
[2017-08-30] MEDS: INSULIN NovoLIN REGULAR SUPPLEMENTAL SCALE SQ SCH ×2 (17:00→21:00)
[2017-08-30] MEDS: SODIUM CHLOR 0.9% 1000 ML INJ 1,000 ML IV SCH (18:00)
--- NOTE | 2017-08-30 18:31 | RADRPT ---
EXAM DATE/TIME: 08/30/2017 17:59 [facility] COMPARISON: No previous studies available for comparison. INDICATIONS : Trauma, fall. RADIATION DOSE: 38.46 CTDIvol (mGy) MEDICAL HISTORY : Hypertension. SURGICAL HISTORY : None. ENCOUNTER: Initial ACUITY: 1 day PAIN SCALE: 8/10 LOCATION: Paraspinal TECHNIQUE: Volumetric scanning of the lumbar spine was performed. Multiplanar reconstructions in the sagittal, coronal and oblique axial planes were performed. Using automated exposure control and adjustment of the mA and/or kV according to patient size, radiation dose was kept as low as reasonably achievable t o obtain optimal diagnostic quality images. DICOM format image data is available electronically for review and comparison. FINDINGS: VERTEBRAE: Normal vertebral body height. ALIGNMENT: No evidence of subluxation. T12-L1: The thecal sac has a normal diameter. No evidence of disc bulge or protrusion. The neural foramina are patent bilaterally. L1-L2: The thecal sac has a normal diameter. No evidence of disc bulge or protrusion. The neural foramina are patent bilaterally. L2-L3: The thecal sac has a normal diameter. No evidence of disc bulge or protrusion. The neural foramina are patent bilaterally. L3-L4: The thecal sac has a normal diameter. No evidence of disc bulge or protrusion. The neural foramina are patent bilaterally. L4-L5: The thecal sac has a normal diameter. No evidence of disc bulge or protrusion. The neural foramina are patent bilaterally. L5-S1: The thecal sac has a normal diameter. No evidence of disc bulge or protrusion. The neural foramina are patent bilaterally. CONCLUSION: Negative examination. Alec Latham MD on August 30, 2017 at 18:27 Board Certified Radiologist. This report was verified electronically.
[2017-08-30] MEDS: SODIUM CHLORIDE 0.9% FLUSH 10 ML FLUSH IV FLUSH SCH (21:00)
[2017-08-30] MEDS: DOXEPIN HCL 10 MG CAP PO SCH (21:00)
[2017-08-30] MEDS: DOCUSATE SODIUM 50 MG/SENNA 8.6 MG TAB PO SCH (21:00)
[2017-08-30] MEDS: ATORVASTATIN 40 MG TAB PO SCH (21:00)
[2017-08-30] MEDS: levETIRAcetam INJ 500 MG in SODIUM CHLORIDE 0.9% INJ 100 ML IV SCH (21:00)
[2017-08-30] MEDS: FAMOTIDINE 20 MG/2 ML VIAL IV PUSH SCH (21:00)
[2017-08-30] MEDS: DIVALPROEX SODIUM E.R. 500 MG TAB PO SCH (21:00)
[2017-08-30] MEDS: CHLORHEXIDINE GLUCONATE 2 % 1 PACK (2 CLOTHS) TOP SCH (23:25)
[2017-08-30] MEDS: hydrALAZINE HCL 20 MG/ML VIAL IV PUSH PRN (23:43)
[2017-08-31] VITALS (10 sets, daily range): BP systolic 135–173; BP diastolic 67–81; PULSE 70–100; RESP 11–21; TEMP 97.7–98.4; O2SAT 95–100
[2017-08-31] MEDS: MORPHINE SULFATE 2 MG/ML INJ IV PRN ×2 (03:53→06:09)
[2017-08-31 04:28] LABS: AUTOMATED NEUTROPHIL # 3.3 TH/MM3 (1.8-7.7); BASOPHIL % 0.3 % (0.0-2.0); EOSINOPHIL # 0.1 TH/MM3 (0-0.4); EOSINOPHIL % 1.5 % (0.0-4.0); HEMATOCRIT 30.2 % (35.0-46.0); HEMO FLAGS DIFF FINAL; LYMPH % 32.4 % (9.0-44.0); MEAN CELL VOLUME 84.1 FL (80.0-100.0); MEAN CORPUSCULAR HEMOGLOBIN 28.2 PG (27.0-34.0); MEAN CORPUSCULAR HGB CONC 33.6 % (32.0-36.0); MONO % 11.7 % (0.0-8.0); NEUT % 54.1 % (16.0-70.0); PLATELET COUNT 168 TH/MM3 (150-450); RED BLOOD COUNT 3.59 MIL/MM3 (4.00-5.30); RED CELL DISTRIBUTION WIDTH 14.8 % (11.6-17.2); WHITE BLOOD COUNT 6.2 TH/MM3 (4.0-11.0)
[2017-08-31 04:37] LABS: PROTHROMBIN TIME - PATIENT 10.7 SEC (9.8-11.6)
[2017-08-31 04:50] LABS: ANION GAP 8 MEQ/L (5-15); AST (GOT) 24 U/L (15-37); BICARBONATE 25.1 MEQ/L (21.0-32.0); BLOOD UREA NITROGEN 16 MG/DL (7-18); CHLORIDE 107 MEQ/L (98-107); GLOMERULAR FILTRATION RATE 92 ML/MIN (>89); MAGNESIUM 1.5 MG/DL (1.5-2.5); POTASSIUM 3.8 MEQ/L (3.5-5.1); SODIUM (NA) 140 MEQ/L (136-145)
[2017-08-31 04:51] LABS: ALT (GPT) 30 U/L (10-53)
[2017-08-31 04:53] LABS: ALKALINE PHOSPHATASE 70 U/L (45-117); TOTAL BILIRUBIN ADULT 0.3 MG/DL (0.2-1.0)
--- NOTE | 2017-08-31 05:07 | RADRPT ---
EXAM DATE/TIME: 08/31/2017 04:46 [facility] COMPARISON: No previous studies available for comparison. INDICATIONS : Follow up subdural hematoma. RADIATION DOSE: 38.46 CTDIvol (mGy) MEDICAL HISTORY : Non-responsive. SURGICAL HISTORY : Non-responsive. ENCOUNTER: Initial ACUITY: 1 day PAIN SCALE: Non-responsive LOCATION: cranial TECHNIQUE: Multiple contiguous axial images were obtained of the head. Using automated exposure control and adj ustment of the mA and/or kV according to patient size, radiation dose was kept as low as reasonably a chievable to obtain optimal diagnostic quality images. DICOM format image data is available electro nically for review and comparison. FINDINGS: CEREBRUM: Acute right-sided subdural hemorrhage is again seen and appears slightly more prominent maximum dimen prakash 1.9 cm. Slight mass effect and right to left midline shift of 1 mm The ventricles are normal for age. No evidence of mass lesion, or acute infarction. POSTERIOR FOSSA: The cerebellum and brainstem are intact. The 4th ventricle is midline. The cerebellopontine angle i s unremarkable. EXTRACRANIAL: The visualized portion of the orbits is intact. SKULL: The calvaria is intact. No evidence of skull fracture. CONCLUSION: 1. Right-sided subdural hemorrhage slightly more prominent measuring 1.9 cm. Minimal right to left mi dline shift a 1 mm. Fantasma Miller MD on August 31, 2017 at 5:04 Board Certified Radiologist. This report was verified electronically.
[2017-08-31] MEDS: hydrALAZINE HCL 20 MG/ML VIAL IV PUSH PRN ×2 (05:44→21:13)
[2017-08-31] MEDS: SODIUM CHLOR 0.9% 1000 ML INJ 1,000 ML IV SCH ×2 (05:55→07:19)
[2017-08-31] MEDS: LABETALOL HCL 100 MG/20 ML VIAL IV PUSH PRN ×2 (06:41→22:15)
[2017-08-31] MEDS: levETIRAcetam INJ 500 MG in SODIUM CHLORIDE 0.9% INJ 100 ML IV SCH ×2 (08:13→21:13)
[2017-08-31] MEDS: SODIUM CHLORIDE 0.9% FLUSH 10 ML FLUSH IV FLUSH SCH ×2 (08:14→21:14)
[2017-08-31] MEDS: FAMOTIDINE 20 MG/2 ML VIAL IV PUSH SCH (08:14)
[2017-08-31] MEDS: LISINOPRIL 20 MG TAB PO SCH (08:15)
[2017-08-31] MEDS: METOPROLOL TARTRATE 25 MG TAB PO SCH (08:16)
[2017-08-31] MEDS: DOCUSATE SODIUM 50 MG/SENNA 8.6 MG TAB PO SCH (08:16)
[2017-08-31] MEDS: FUROSEMIDE 40 MG TAB PO SCH (08:16)
[2017-08-31] MEDS: INSULIN NovoLIN REGULAR SUPPLEMENTAL SCALE SQ SCH ×4 (08:38→21:16)
--- NOTE | 2017-08-31 08:52 | HHI.CCPN ---
Subjective Remarks/Hospital Course 57-year-old AA female . Date of admission 08/30/2017. Past medical history includes schizoaffective/bipolar, depression, seizure disorder, hypertension, dyslipidemia, diabetes and allergic rhinitis. She is not on any blood thinners or aspirin. This patient was walking from [employer] in approximately 6 AM this morning when she suffered a fall and landed on the right side of her face.. She states she slipped in the wet grass hitting her face on the concrete. No loss of consciousness. Not seizure activity noted. Not tongue biting. No incontinence of stool or urine. 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 Patient states that she's been having a headache and right-sided facial pain since. 08/30 CT of the brain showed a right frontotemporal subdural hematoma 1.6 cm with a 3 mm right to left shift. Maxillofacial CT revealed a nondisplaced right nasal fracture. CT spine negative. CBC showed normocytic anemia. BMP is pending. Elevated PTT coags at 33. Patient was loaded with 500 mg levetiracetam, given as needed for elevated blood pressure stabilized in the ED. Neurosurgical consultation was requested with Dr. Aiken. Subjective 08/31: Afebrile. CT brain revealed increased diameter right-sided subdural hematoma up to 1.9 cm. Shift is 1 mm right to left. Positive headache. No seizure activity. No real focal neurological deficits. Objective Vital Signs Date Time Temp Pulse Resp B/P (MAP) Pulse Ox O2 Delivery O2 Flow Rate FiO2 08/31/17 06:16 19 08/31/17 06:00 100 08/31/17 04:00 98.4 155/74 (101) 97 08/30/17 20:40 21 08/30/17 19:00 Room Air Intake and Output 08/31/17 08/31/17 09/01/17 08:00 16:00 00:00 Intake Total 1720 ml Balance 1720 ml Result Diagram: 08/31/17 0357 08/31/17 0357 Imaging Last Impressions Head CT 08/31/17 06 Signed Impressions: Service Date/Time: Thursday, August 31, 2017 04:46 - CONCLUSION: 1. Right- sided subdural hemorrhage slightly more prominent measuring 1.9 cm. Minimal right to left midline shift a 1 mm. Fantasma F. Tocci, MD Maxillofacial CT 08/30/17 0000 Signed Impressions: Service Date/Time: August 15:13 - CONCLUSION: 1. There is a minimally depressed right nasal bone fracture with adjacent soft tissue swelling. No other fracture is visualized. 2. Please refer to head CT report for description of the right subdural hematoma. Nacho Buckley MD Lumbar Spine CT 08/30/17 0000 Signed Impressions: Service Date/Time: August 17:59 - CONCLUSION: Negative examination. Alec Latham MD Cervical Spine CT 08/30/17 0000 Signed Impressions: Service Date/Time: August 15:12 - CONCLUSION: 1. No acute fracture or subluxation. Skinny Muñiz MD Objective Remarks GENERAL: 49-year-old female, resting in bed on room air SKIN: Warm and dry. Abrasions to the right cheek and chin with evolving ecchymoses HEAD: Atraumatic. Normocephalic. EYES: Pupils equal and round about 3 mm bilaterally and reactive. Right leg is somewhat swollen protuberant. No scleral icterus. No injection or drainage. ENT: No nasal bleeding or discharge. Mucous membranes pink and moist. NECK: Trachea midline. No JVD. CARDIOVASCULAR: Regular rate and rhythm. S1, S2. No S4. Without murmur RESPIRATORY: Clear to auscultation. Breath sounds equal bilaterally. GASTROINTESTINAL: Abdomen soft, non-tender, nondistended. Bowel sounds are sluggish but appreciated MUSCULOSKELETAL: Extremities without significant peripheral edema. No obvious deformities. NEUROLOGICAL: Awake and alert. No obvious cranial nerve deficits. Motor grossly within normal limits. Five out of 5 muscle strength in the arms and legs. Normal speech. PSYCHIATRIC: Appropriate mood and affect; insight and judgment normal. A/P Assessment and Plan Neuro/Psych: Right subdural hematoma - 1.6 cm fronto temporal with a 3 mm right to left shift Right closed nondisplaced nasal fracture Schizoaffective disorder Bipolar disorder Depression Seizure disorder NOS CT brain 08/30 revealed a right frontal temporal subdural hematoma 1.6 cm thickness with a 3 mm right to left shift. Nondisplaced right nasal bone fracture. Repeat CT brain test revealed subdural hematoma 1.9 cm in thickness with a 1 mm right to left shift. Plan to or today Levetiracetam 500 mg IV twice a day for seizure prophylaxis 7 days Goal keep systolic blood pressure less than 150. Neurochecks Head of bed at [address] in a.m. 08/[address] Aiken/neurosurgery Continue divalproex 1500 mg a night. Level 97 this AM Continue doxepin 10 mg by mouth daily Holding loratadine 10 mg by mouth daily CV: Hypertension Dyslipidemia Continue metoprolol 25 mg daily for hypertension. Continue isosorbide mononitrate 30 mg by mouth daily As needed labetalol, hydralazine, Nitropaste and clevidipine drip to keep systolic blood pressure less than 150 Continue atorvastatin 40 mg by mouth daily for dyslipidemia Resp: Nasal cannula to maintain saturations greater than or equal to 92% Incentive spirometry while awake GI: Patient is currently nothing by mouth. Tolerated ADA diet overnight Famotidine for GI prophylaxis Docusate sodium/senna for bowel regimen : Incontinence Porter catheter if indicated for accurate I's and O's in a critically ill patient Holding Tolterodine 2 mg by mouth daily. Resume when clinically indicated Endo: Diabetes History of hypothyroidism/thyroid nodules Holding metformin 1000 mg daily andLinagliptin 5 mg daily for diabetes. Sliding-scale insulin with Accu-Cheks to maintain euglycemia Renal: History of renal cell carcinoma status post right nephrectomy Patient is currently on normal saline at 84 cc an hour Monitor urine output Accurate I's and O's Follow-up ER BMP not completed Heme: Normocytic anemia Elevated PTT Monitor CBC daily. Follow trends Does not meet transfusion thresholds at this time ID: Monitor for infection FEN: Replace electrolytes as clinically indicated Holding cholecalciferol 1000 U daily. Resume when clinically indicated MSK: Osteoarthritis Physical therapy evaluate and treat Access - Utilize peripheral IV. Central line if indicated Prophylaxis - GI famotidine - DVT- SCD/holding pharmacological prophylaxis in light of subdural hematoma Level II follow-up Calvin Rodas MD Aug 31, 2017 08:52
[2017-08-31] MEDS ORDERED: ISOSORBIDE MONONITRATE 30 MG TAB PO SCH (09:00)
--- NOTE | 2017-08-31 09:28 | RADRPT ---
EXAM DATE/TIME: 08/31/2017 10:00 [facility] COMPARISON: CHEST PA & LAT, August 19, 2014, 17:49. INDICATIONS : Shortness of breath. MEDICAL HISTORY : Cardiovascular disease. Hypertension Diabetes mellitus type II. Renal cell. SURGICAL HISTORY : Mastectomy, right. ENCOUNTER: Subsequent ACUITY: 1 week PAIN SCORE: 0/10 LOCATION: Bilateral chest FINDINGS: Portable AP view of the chest demonstrates a normal-sized cardiac silhouette. No effusion, consolidat ion, or pneumothorax is visualized. The bones and soft tissues demonstrate no acute abnormality. CONCLUSION: No acute cardiopulmonary abnormality is identified. Nacho Buckley MD on August 31, 2017 at 9:26 Board Certified Radiologist. This report was verified electronically.
[2017-08-31] MEDS ORDERED: MICROFIBRILLAR COLLAGEN HEMOSTAT 70 X 35 MM BANDAGE ONE (09:52)
[2017-08-31] MEDS ORDERED: GELFOAM SIZE 100 ONE (09:53)
[2017-08-31] MEDS ORDERED: GENTAMICIN SULFATE 80 MG/2 ML VIAL ONE (09:53)
[2017-08-31] MEDS ORDERED: THROMBIN (TOPICAL) 5,000 UNIT VIAL ONE (09:53)
[2017-08-31] MEDS ORDERED: LIDOCAINE 1%/EPINEPHrine 1:100,000 SOLN 50 ML VIAL ONE (09:55)
[2017-08-31] MEDS ORDERED: VANCOMYCIN HCL 1000 MG VIAL ONE (10:43)
[2017-08-31] MEDS ORDERED: ceFAZolin 2 GM PREMIX 50 ML ONE (10:44)
[2017-08-31] MEDS ORDERED: levETIRAcetam 500 MG/5 ML VIAL IV ONE (11:41)
[2017-08-31] MEDS ORDERED: PROPOFOL 200 MG/20 ML AMP IV ONE (12:00)
[2017-08-31] MEDS ORDERED: LIDOCAINE HCL 1% PF 5 ML AMPULE OTHER ONE (12:00)
[2017-08-31] MEDS ORDERED: NEOSTIGMINE 3 MG/3 ML SYR IV ONE (12:00)
[2017-08-31] MEDS ORDERED: SODIUM CHLORID 0.9% 500 ML INJ 1,000 ML IV ONE (12:00)
[2017-08-31] MEDS ORDERED: ROCURONIUM INJ 50 MG/5 ML SYRINGE IV PUSH ONE (12:00)
[2017-08-31] MEDS ORDERED: NORMOSOL R INJ 1,000 ML IV ONE (12:00)
[2017-08-31] MEDS ORDERED: LABETALOL HCL 100 MG/20 ML VIAL IV ONE (12:00)
[2017-08-31] MEDS ORDERED: GLYCOPYRROLATE 1 MG/5 ML SYRINGE IV PUSH ONE (12:00)
[2017-08-31] MEDS ORDERED: PHENYLEPH/NS 1000 MCG/10 ML SYR IV ONE (12:00)
[2017-08-31] MEDS ORDERED: ePHEDrine/NS 25 MG/5 ML SYR IV ONE (12:00)
[2017-08-31] MEDS ORDERED: ONDANSETRON HCL 4 MG/2 ML VIAL IV PUSH ONE (12:00)
[2017-08-31] MEDS ORDERED: DO NOT ADM ANY ANTICOAGULANT DRUGS PRN (13:20)
[2017-08-31] MEDS ORDERED: ACETAMINOPHEN/HYDROcodone 325 MG/10 MG TAB PO PRN (13:30)
[2017-08-31] MEDS ORDERED: ONDANSETRON HCL 4 MG/2 ML VIAL IV PUSH PRN (13:30)
[2017-08-31] MEDS ORDERED: POTASSIUM CHLOR 20 MEQ PREMIX 100 ML IV PRN (13:30)
[2017-08-31] MEDS ORDERED: ACETAMINOPHEN 325 MG TAB PO PRN (13:30)
[2017-08-31] MEDS ORDERED: BISACODYL 10 MG SUPP RECTAL PRN (13:30)
[2017-08-31] MEDS ORDERED: CALCIUM GLUCONATE 10% 1 GM/10 ML VIAL IV PRN (13:30)
[2017-08-31] MEDS ORDERED: levETIRAcetam INJ 500 MG in SODIUM CHLORIDE 0.9% INJ 100 ML IV SCH (13:30)
[2017-08-31] MEDS ORDERED: SODIUM CHLORIDE 0.9% FLUSH 5 ML FLUSH IVF PRN (13:30)
[2017-08-31] MEDS ORDERED: MAGNESIUM SULFATE INJ 4 GM in SODIUM CHLORIDE 0.9% INJ 100 ML IV PRN (13:30)
[2017-08-31] MEDS ORDERED: *morphine SULFATE 8 MG/ML PERIprocedure ONLY ONE ×3 (13:31→14:45)
--- NOTE | 2017-08-31 13:34 | PD.OP ---
Operative Report Date of Surgery: Aug 31, 2017 Preoperative Diagnosis: Right acute subdural hematoma Postoperative Diagnosis: Right acute subdural hematoma Procedure: Right frontotemporal parietal craniotomy, evacuation of acute subdural hematoma Anesthesia: general Surgeon: Yannick Aiken [employer] Waste Truck Driver(s): Kaylee Freeman Operation and Findings: INDICATIONS FOR THE PROCEDURE Ms Haider is a 57 year old adult female who was brought to [facility] as a trauma alert with a severe traumatic brain injury. CT of the brain showed a large right acute subdural hematoma with mass effect and midline shift. A surgical decompression was indicated as recommended by the [employer] [place] [employer] in an attempt to save the patient' s life. I have discussed with his the details including the [id number] details of the surgical procedure, its indications, alternatives, risks, and potential complications. Risks and potential complications include, but are not limited to, infection, blood loss, CSF leak, partial or complete loss of sight in one or both eyes, paresis, paralysis, permanent pain or difficulty swallowing, loss of bowel or bladder function, complications from anesthesia, blood clot, stroke, myocardial infarction, or even . DETAILS OF THE SURGICAL PROCEDURE After the induction of general anesthesia the patient was endotracheally intubated and mechanically ventilated. A Porter catheter, bilateral PENNIE hose and sequential compression devices were placed and kept throughout the procedure. The patient was positioned supine on a 3080 table over a soft mattress. The eyes were tapped shut after ointment was applied by the anesthesiologist to prevent corneal abrasion. A Angel hugger was placed over the exposed lower body to maintain control of the core body temperature. The head was placed on a gel doughnut. All pressure points were carefully padded with egg crate mattress. The frontotemporal parietal area was shaved, prepped and draped in the usual sterile fashion. A standard inverted question donn incision was outlined on the right frontotemporoparietal scalp and infiltrated with 1% lidocaine with epinephrine. The skin incision was made with a #10 blade down to the level of the periosteum in the frontoparietal region and to the temporalis fascia in the temporal region. Lenka clips were applied to the scalp. Using a Bovie, the temporalis fascia and muscle were incised and a subperiosteal dissection was performed reflecting the scalp flap anteriorly. The scalp was covered with a moist sponge and held in position using fish hooks. The TPS was brought to the field and a bur hole was made in the right temporal region using the craniotome attachment. Then, using the footplate attachment, a large frontotemporoparietal craniotomy flap was elevated. The dura was bulging, very tense with severe pressure and an underlying dark coloration related to the acute subdural hematoma. The dura was opened with a 15 blade and metzembaun scissors and a large subdural hematoma was found, causing significant mass effect. The hematoma was evacuated by gentle irrigation and sent to the lab for histologic analysis. The bleeding was controlled using the bipolar lens cleaner. Then the incision was irrigated with saline solution. The dural edges were tacked to the bone. The craniotomy flap was then repositioned and secured in place using Striker plates and screws. A 7 millimeter Sukumar-Pablo drain was then left in the subgaleal space and externalized through a separate stab incision. The incision was then closed in layers. 0 Vicryl in interrupted sutures were used to close the temporalis fascia. The galea was closed with interrupted 3- 0 Vicryl. Xuan were applied to the skin. The drain was secured with a 3-0 nylon. At the end of the procedure, the sponge, needle and instrument counts were all correct. Estimated blood loss was less than 100 cc. No blood transfusion was given. No intraoperative complications occurred. The patient received prophylactic antibiotics. The patient was then transferred to the recovery room in stable condition. Yannick Aiken MD Aug 31, 2017 13:34
[2017-08-31] MEDS: NS + KCL 20 MEQ INJ 1,000 ML IV SCH ×2 (13:40→23:05)
--- NOTE | 2017-08-31 14:56 | OTSOAPIP ---
TIME SESSION COMPLETED: 1500 TREATMENT TIME: 0 MINS. CHART REVIEWED. PATIENT NOT AVAILABLE DUE TO BEING IN SURGERY FOR RIGHT FRONTOTEMPORAL PARIETAL CRANIOTOMY, EVACUATION OF ACUTE SUBDURAL HEMATOMA PLAN: WILL SEE PATIENT NEXT TREATMENT DAY Therapist: CINDI HILL/[facility] Signature on file
[2017-08-31] MEDS: ceFAZolin 2 GM PREMIX 50 ML IV SCH (17:23)
[2017-08-31] MEDS ORDERED: SODIUM CHLORIDE 0.9% FLUSH 5 ML FLUSH IVF SCH (21:00)
[2017-08-31] MEDS: DOCUSATE SODIUM 100 MG CAP PO SCH (21:00)
[2017-08-31] MEDS: DOXEPIN HCL 10 MG CAP PO SCH (21:00)
[2017-08-31] MEDS: ATORVASTATIN 40 MG TAB PO SCH (21:00)
[2017-08-31] MEDS: CHLORHEXIDINE GLUCONATE 4% SOLN 120 ML BTL TOP SCH (21:00)
[2017-08-31] MEDS: DIVALPROEX SODIUM E.R. 500 MG TAB PO SCH (21:00)
[2017-08-31] MEDS: MORPHINE SULFATE 4 MG/ML INJ IV PUSH PRN (21:39)
--- NOTE | 2017-08-31 22:02 | EKG ---
Date Performed: 08/30/2017 Time Performed: 17:18:35 PTAGE: 57 years EKG: Sinus rhythm LEFT VENTRICULAR HYPERTROPHY AND ST-T CHANGE ABNORMAL ECG WARNING: DATA QUALITY MAY AFFECT INTERPRET ATION PREVIOUS TRACING : 09/24/2014 19.21 Compared to prior tracing no significant change DOCTOR: Stewart Calix Interpretating Date/Time 08/31/2017 21:33:33
[2017-09-01] VITALS (15 sets, daily range): BP systolic 107–174; BP diastolic 59–74; PULSE 86–112; RESP 15–16; TEMP 97.5–99.9; O2SAT 95–100
[2017-09-01] MEDS: LABETALOL HCL 100 MG/20 ML VIAL IV PUSH PRN ×6 (01:27→08:45)
[2017-09-01] MEDS: CHLORHEXIDINE GLUCONATE 2 % 1 PACK (2 CLOTHS) TOP SCH ×2 (01:33→21:25)
[2017-09-01] MEDS: MORPHINE SULFATE 4 MG/ML INJ IV PUSH PRN ×2 (01:37→06:15)
[2017-09-01] MEDS: ceFAZolin 2 GM PREMIX 50 ML IV SCH ×2 (01:37→14:34)
[2017-09-01] MEDS: hydrALAZINE HCL 20 MG/ML VIAL IV PUSH PRN (03:39)
[2017-09-01 04:48] LABS: AUTOMATED NEUTROPHIL # 9.1 TH/MM3 (1.8-7.7); BASOPHIL % 0.2 % (0.0-2.0); HEMATOCRIT 37.1 % (35.0-46.0); HEMO FLAGS DIFF FINAL; LYMPH % 9.5 % (9.0-44.0); LYMPHOCYTE # 1.1 TH/MM3 (1.0-4.8); MEAN CELL VOLUME 86.3 FL (80.0-100.0); MEAN CORPUSCULAR HEMOGLOBIN 27.7 PG (27.0-34.0); MONO % 8.9 % (0.0-8.0); NEUT % 81.4 % (16.0-70.0); PLATELET COUNT 183 TH/MM3 (150-450); RED CELL DISTRIBUTION WIDTH 14.8 % (11.6-17.2); WHITE BLOOD COUNT 11.1 TH/MM3 (4.0-11.0)
[2017-09-01 04:59] LABS: BICARBONATE 21.8 MEQ/L (21.0-32.0); MAGNESIUM 1.5 MG/DL (1.5-2.5); POTASSIUM 4.5 MEQ/L (3.5-5.1)
[2017-09-01] MEDS: INSULIN NovoLIN REGULAR SUPPLEMENTAL SCALE SQ SCH ×4 (08:00→21:51)
[2017-09-01] MEDS: FUROSEMIDE 40 MG TAB PO SCH (09:00)
[2017-09-01] MEDS ORDERED: PANTOPRAZOLE SODIUM 40 MG VIAL IVP SCH (09:00)
[2017-09-01] MEDS: METOPROLOL TARTRATE 25 MG TAB PO SCH (09:00)
[2017-09-01] MEDS ORDERED: PANTOPRAZOLE SOD 40 MG DELAYED RELEASE TAB PO SCH (09:00)
[2017-09-01] MEDS: SODIUM CHLORIDE 0.9% FLUSH 10 ML FLUSH IV FLUSH SCH ×3 (09:00→21:21)
[2017-09-01] MEDS: TOLTERODINE TARTRATE 2 MG CAP LA PO SCH (09:00)
[2017-09-01] MEDS ORDERED: NON-FORMULARY DRUG (Linagliptin (Tradjenta) 5 MG) PO SCH (09:00)
[2017-09-01] MEDS: CHOLECALCIFEROL (VIT D3) 1000 UNIT TAB PO SCH (09:00)
[2017-09-01] MEDS: levETIRAcetam INJ 500 MG in SODIUM CHLORIDE 0.9% INJ 100 ML IV SCH ×2 (09:00→21:21)
[2017-09-01] MEDS: LISINOPRIL 20 MG TAB PO SCH (09:00)
[2017-09-01] MEDS ORDERED: LINAGLIPTIN 5 MG PO SCH (09:00)
[2017-09-01] MEDS: DOCUSATE SODIUM 100 MG CAP PO SCH ×2 (09:00→21:21)
--- NOTE | 2017-09-01 09:17 | RADRPT ---
EXAM DATE/TIME: 09/01/2017 08:58 [facility] COMPARISON: CT BRAIN W/O CONTRAST, August 31, 2017, 4:46. INDICATIONS : Abdnormal CT brain. Evaluate status of subdural hematoma. RADIATION DOSE: 57.41 CTDIvol (mGy) MEDICAL HISTORY : Hypertension. SURGICAL HISTORY : None. ENCOUNTER: Subsequent ACUITY: 1 day PAIN SCALE: Non-responsive LOCATION: Bilateral head TECHNIQUE: Multiple contiguous axial images were obtained of the head. Using automated exposure control and adj ustment of the mA and/or kV according to patient size, radiation dose was kept as low as reasonably a chievable to obtain optimal diagnostic quality images. DICOM format image data is available electro nically for review and comparison. FINDINGS: The patient is status post right craniotomy. There is a subdural and a superficial drain in plac e. There is subarachnoid hemorrhage seen over the convexities bilaterally. There is a 2.6 cm parenchy mal hematoma seen in the inferior frontoparietal region. There is a small amount of interventricular hemorrhage seen at the posterior right lateral ventricle. This area of focal hemorrhage in the obstetric assistant ior medial right cerebellar hemisphere measuring 0.9 cm. Significant midline shift is not seen. The b ta cisterns are open. No evidence of acute infarction. CONCLUSION: 1. Status post right craniotomy with placement of a subdural and superficial scalp drain. The previou sly seen subdural hemorrhage has been successfully treated. 2. Development of subarachnoid hemorrhage, a 2.6 cm right frontoparietal focal hematoma, interventric ular hemorrhage, and a small 0.9 cm right cerebellar focal hemorrhage. Nacho Sood MD on September 01, 2017 at 9:10 Board Certified Radiologist. This report was verified electronically.
[2017-09-01] MEDS ORDERED: ROCURONIUM INJ 50 MG/5 ML VIAL ONE (09:56)
[2017-09-01] MEDS ORDERED: PROPOFOL 500 MG/50 ML INJ 50 ML ONE (09:57)
[2017-09-01] MEDS ORDERED: ETOMIDATE 40 MG/20 ML VIAL IV PUSH ONE (10:00)
[2017-09-01] MEDS: MUPIROCIN 2% OINT 1 APPLIC/GM SYR EACH NARE SCH ×2 (10:00→21:22)
[2017-09-01] MEDS ORDERED: 3% SALINE INJ 500 ML IV SCH (10:00)
[2017-09-01] MEDS ORDERED: ROCURONIUM INJ 100 MG/10 ML VIAL IV ONE (10:00)
[2017-09-01] MEDS ORDERED: SODIUM CHLORIDE 0.9% FLUSH 10 ML FLUSH IV FLUSH PRN (10:30)
--- NOTE | 2017-09-01 10:31 | PD.PROCEDR ---
Central Line Procedure REASON FOR PROCEDURE Central venous access PROCEDURE PERFORMED Central line placement: Left IJ CVL CONSENT Informed consent for procedure was obtained. The risks and benefits of the procedure were discussed to include but limited to bleeding, clot formation, infection, and even . ANESTHESIA Local injection of 1% Lidocaine DESCRIPTION OF THE PROCEDURE The patient was placed in supine, mild Trendelenburg position. The area was exposed and cleansed with ChloraPrep, times two. Large sterile drape was used to cover the patient, with the site exposed, under sterile conditions including cap, face mask, sterile gown, and sterile gloves. On single attempt, the introducer needle was inserted with negative pressure in syringe and venous flash was obtained. The guide wire was then advanced without any restriction and the needle was removed. The dilator was used without any complications. Using Seldinger technique the antibiotic coated triple-lumen catheter was advanced over the guide wire to a depth of 20 centimeters. The guide wire was removed. All ports were aspirated with dark venous blood return and flushed easily with sterile saline. All ports were capped. Antibiotic disc was placed around central line at puncture site. The central line was secured to the skin with two interrupted 2.0 silk sutures. The area was bandaged with sterile see- through central line bandage. RADIOLOGICAL DATA Ultrasound guidance was used to locate left internal jugular vein. Doppler/ color flow was used to confirm venous flow. COMPLICATIONS: No apparent complications ESTIMATED BLOOD LOSS: Less than 1 cc. Calvin Rodas MD Sep 01, 2017 10:31
--- NOTE | 2017-09-01 10:33 | PD.PROCEDR ---
Procedure Note Procedure DATE: 09/01/2017 PROCEDURE: Orotracheal intubation INDICATION: Acute respiratory failure with altered mental status DETAILS OF PROCEDURE The patient was placed in optimal position and preoxygenated with 100% FiO2 via bag valve mask. At the start oxygen saturation was 100%. The patient was administered 40 mg etomidate IV and 50 milligrams rocuronium IV. I entered the oropharynx with a size D CMAC blade and obtained a grade 2 view of the airway. On single attempt a size 8.0 cuffed endotracheal tube was passed through the vocal cords. Correct tube location was confirmed with end tidal CO2 detector and by auscultating over bilateral lung gresham. The endotracheal tube was secured with adhesive tape at a depth of 23 cm at the lips. The patient was connected to the ventilator. The patient tolerated the procedure well without any apparent complications. Oxygen saturations were maintained greater than 95% all times. STAT chest x-ray pending at time of dictation. Calvin Rodas MD Sep 01, 2017 10:32
--- NOTE | 2017-09-01 10:42 | HHI.CCPN ---
Subjective Remarks/Hospital Course 57-year-old AA female . Date of admission 08/30/2017. Past medical history includes schizoaffective/bipolar, depression, seizure disorder, hypertension, dyslipidemia, diabetes and allergic rhinitis. She is not on any blood thinners or aspirin. This patient was walking from [place] in approximately 6 AM this morning when she suffered a fall and landed on the right side of her face.. She states she slipped in the wet grass hitting her face on the concrete. No loss of consciousness. Not seizure activity noted. Not tongue biting. No incontinence of stool or urine. 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 Patient states that she's been having a headache and right-sided facial pain since. 08/30 CT of the brain showed a right frontotemporal subdural hematoma 1.6 cm with a 3 mm right to left shift. Maxillofacial CT revealed a nondisplaced right nasal fracture. CT spine negative. CBC showed normocytic anemia. BMP is pending. Elevated PTT coags at 33. Patient was loaded with 500 mg levetiracetam, given as needed for elevated blood pressure stabilized in the ED. Neurosurgical consultation was requested with Dr. Aiken. 08/31: Afebrile. CT brain revealed increased diameter right-sided subdural hematoma up to 1.9 cm. Shift is 1 mm right to left. Positive headache. No seizure activity. No real focal neurological deficits. Subjective 09/01: Patient subjective a weak left upper and lower extremity greater than right. Mumbling words. Stat CT brain revealed 2.6 cm image Pregnyl hemorrhage on the right radial region, 0.9 cm Red cell Coreas hemorrhage and bilateral subarachnoid hemorrhage convex's. Notified Dr. Aiken. Patient was intubated for airway protection and central line placed for hypertonic saline Objective Vital Signs Date Time Temp Pulse Resp B/P (MAP) Pulse Ox O2 Delivery O2 Flow Rate FiO2 09/01/17 08:00 98 09/01/17 07:00 Nasal Cannula 3.00 95 09/01/17 04:00 99.7 15 174/74 (107) 95 Intake and Output 09/01/17 09/01/17 09/02/17 08:00 16:00 00:00 Intake Total 50 ml Output Total 1890 ml Balance -1840 ml Result Diagram: 09/01/17 0400 09/01/17 0400 Imaging Last Impressions Head CT 09/01/17 Signed Impressions: Service Date/Time: Friday, September 01, 2017 08:58 - CONCLUSION: 1. Status post right craniotomy with placement of a subdural and superficial scalp drain. The previously seen subdural hemorrhage has been successfully treated. 2. Development of subarachnoid hemorrhage, a 2.6 cm right frontoparietal focal hematoma, interventricular hemorrhage, and a small 0.9 cm right cerebellar focal hemorrhage. Nacho Sood MD Chest X-Ray 08/31/17 Signed Impressions: Service Date/Time: Thursday, August 31, 2017 10:00 - CONCLUSION: No acute cardiopulmonary abnormality is identified. Nacho Buckley MD Maxillofacial CT 08/30/17 Signed Impressions: Service Date/Time: August 15:13 - CONCLUSION: 1. There is a minimally depressed right nasal bone fracture with adjacent soft tissue swelling. No other fracture is visualized. 2. Please refer to head CT report for description of the right subdural hematoma. Nacho Buckley MD Lumbar Spine CT 08/30/17 Signed Impressions: Service Date/Time: August 17:59 - CONCLUSION: Negative examination. Alec Latham MD Cervical Spine CT 08/30/17 Signed Impressions: Service Date/Time: August 15:12 - CONCLUSION: 1. No acute fracture or subluxation. Skinny Muñiz MD Objective Remarks GENERAL: 49-year-old female, resting in bed orotracheally intubated SKIN: Warm and dry. Abrasions to the right cheek and chin with evolving ecchymoses HEAD: Status post right craniotomy with subdural, scalp drain in place EYES: Pupils equal and round about 3 mm bilaterally and reactive. Right leg is somewhat swollen protuberant. No scleral icterus. No injection or drainage. ENT: No nasal bleeding or discharge. Mucous membranes pink and moist. NECK: Trachea midline. No JVD. CARDIOVASCULAR: Tachycardia, RR. S1, S2. No S4. Without murmur RESPIRATORY: Clear to auscultation. Breath sounds equal bilaterally. GASTROINTESTINAL: Abdomen soft, non-tender, nondistended. Bowel sounds are sluggish but appreciated MUSCULOSKELETAL: Extremities without significant peripheral edema. No obvious deformities. NEUROLOGICAL: Arousable but falls asleep. Follows commands weakly bilateral upper and lower extremities. Strength greater than lower extremity's and O's. Right greater than left. Normal sensation. Gait was not assessed. Urinary Catheter: Yes Assessment to: Continue Porter insert reason: Prolonged Immobilization Vascular Central Line Catheter: Yes Assessment to: Continue Date of Insertion: Sep 01, 2017 Line: Central Venous Catheter Side: Left Location: Internal, Jugular A/P Assessment and Plan Neuro/Psych: Postop day 1 right craniotomy with evacuation of subdural hematoma 2.6 cm right parietal/temporal intracranial hemorrhage, 0.9 cm right subdural hemorrhage and bilateral subarachnoid hemorrhage Right subdural hematoma - 1.6 cm fronto temporal with a 3 mm right to left shift Right closed nondisplaced nasal fracture Schizoaffective disorder Bipolar disorder Depression Seizure disorder NOS Propofol/fentanyl drips submitted for sedation/analgesia while intubated Goal of RA SS -[address] brain 08/30 revealed a right frontal temporal subdural hematoma 1.6 cm thickness with a 3 mm right to left shift. Nondisplaced right nasal bone fracture. CT brain 09/01 revealed 2.6 cm right parietal intracranial hemorrhage, 0.9 cm right subdural hemorrhage and bilateral subarachnoid hemorrhage Repeat CT brain test revealed subdural hematoma 1.9 cm in thickness with a 1 mm right to left shift. Plan to or today Levetiracetam 500 mg IV twice a day for seizure prophylaxis 7 days Goal keep systolic blood pressure less than 140. Neurochecks Head of bed at [address] in a.m. 09/[address] Aiken/neurosurgery Continue divalproex 1500 mg a night. Repeat level in a.m. Currently on 3% saline goal 150-155 End tidal CO2 35-40 Continue doxepin 10 mg by mouth daily Holding loratadine 10 mg by mouth daily CV: Hypertension Dyslipidemia Continue metoprolol 25 mg daily for hypertension. Continue isosorbide mononitrate 30 mg by mouth daily but switch to isosorbide dinitrate 10 mg 3 times a day As needed labetalol, hydralazine, Nitropaste and nicardipine drip to keep systolic blood pressure less than 140 Continue atorvastatin 40 mg by mouth daily for dyslipidemia Resp: Nasal cannula to maintain saturations greater than or equal to 92% Incentive spirometry while awake GI: Patient is currently nothing by mouth. Tolerated ADA diet overnight Famotidine for GI prophylaxis Docusate sodium/senna for bowel regimen : Incontinence Porter catheter if indicated for accurate I's and O's in a critically ill patient Holding Tolterodine 2 mg by mouth daily. Resume when clinically indicated Endo: Diabetes History of hypothyroidism/thyroid nodules Holding metformin 1000 mg daily andLinagliptin 5 mg daily for diabetes. Sliding-scale insulin with Accu-Cheks to maintain euglycemia Renal: History of renal cell carcinoma status post right nephrectomy Patient is currently on normal saline at 84 cc an hour Monitor urine output Accurate I's and O's Follow-up ER BMP not completed Heme: Normocytic anemia Elevated PTT Monitor CBC daily. Follow trends Does not meet transfusion thresholds at this time ID: Monitor for infection FEN: Replace electrolytes as clinically indicated Holding cholecalciferol 1000 U daily. Resume when clinically indicated MSK: Osteoarthritis Physical therapy evaluate and treat Access - Utilize peripheral IV. Central line if indicated Prophylaxis - GI famotidine - DVT- SCD/holding pharmacological prophylaxis in light of subdural hematoma Critical care time 35 minutes Calvin Rodas MD Sep 01, 2017 10:42
[2017-09-01] MEDS: MAGNESIUM SULFATE 1 GM PREMIX 100 ML IV SCH ×3 (11:00→16:30)
[2017-09-01] MEDS: niCARdipine INJ 25 MG in SODIUM CHLOR 0.9% 250 ML INJ 240 ML IV PRN ×2 (11:00→14:01)
--- NOTE | 2017-09-01 11:05 | RADRPT ---
EXAM DATE/TIME: 09/01/2017 11:35 [facility] COMPARISON: CHEST SINGLE AP, August 31, 2017, 10:00. INDICATIONS : Central line placement. MEDICAL HISTORY : Hypertension. SURGICAL HISTORY : None. ENCOUNTER: Subsequent ACUITY: 1 day PAIN SCORE: Non-responsive. LOCATION: Bilateral chest FINDINGS: The patient is rotated towards the right. The patient is intubated with the tip in ET tube 2.4 cm fro m the zara. There is a left internal jugular central line in place with the tip overlying the SVC. A pneumothorax is not seen. The heart size is normal. This increased density at the right base. CONCLUSION: 1. Left internal jugular central line in good position. 2. Right base atelectasis or consolidation. Nacho Sood MD on September 01, 2017 at 11:01 Board Certified Radiologist. This report was verified electronically.
[2017-09-01 13:24] LABS: APTT (PATIENT) 31.3 SEC (24.3-30.1); PROTHROMBIN TIME - PATIENT 10.7 SEC (9.8-11.6)
--- NOTE | 2017-09-01 13:33 | HHI.NSPN ---
Note Status Status: Progress Note Interval History Diagnosis SDH Interval History This is a 57-year-old female who apparently is status post slip and fall around 6 AM this morning. She states she was on her way to [facility] she had some eggs when she slipped in the wet grass hitting her face on the concrete. No loss of consciousness. Not seizure activity noted. Not tongue biting. No incontinence of stool or urine. 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 Patient states that she' s been having a headache and right-sided facial pain since. She denies any chest pain, shortness of breath, change in vision, numbness or tingling anywhere , neck pain, back pain, loss or change in bowel or bladder, or being on any blood thinners. She is moving where both upper and lower extremities without any focal deficit. CT of the brain showed a right sided accurate subdural hematoma causing mass effect and midline shift. The subdural was hematoma 1.6 cm thick with a 3 mm right to left shift. Maxillofacial CT revealed a nondisplaced right nasal fracture. CT spine negative. Neurosurgical consultation was requested 09/01: Alexis today. Open eyes follows commands withn all [address] brain showed new frontal and post fossa bleed Labs, Micro, & Vital Signs Results Date Time Temp Pulse Resp B/P (MAP) Pulse Ox O2 Delivery O2 Flow Rate FiO2 09/01/17 08:00 98 09/01/17 07:00 Nasal Cannula 3.00 95 09/01/17 06:00 102 09/01/17 04:00 99.7 112 15 174/74 (107) 95 09/01/17 04:00 112 09/01/17 02:00 104 09/01/17 00:00 97.5 103 16 147/67 (93) 98 09/01/17 00:00 103 08/31/17 22:00 85 08/31/17 20:00 84 08/31/17 20:00 98.1 85 12 156/77 (103) 100 08/31/17 19:00 Nasal Cannula 3.00 100 08/31/17 16:00 82 08/31/17 16:00 97.7 78 11 135/67 (89) 97 Arterial Line 08/31/17 15:00 70 08/31/17 14:30 72 12 112/59 (76) 99 Nasal Cannula 2 08/31/17 14:15 98.2 72 12 128/65 (86) 99 Nasal Cannula 2 107/54 (71) 08/31/17 14:00 69 12 124/61 (82) 98 Nasal Cannula 2 111/55 (73) 08/31/17 13:45 69 12 140/74 (96) 100 Nasal Cannula 3 136/63 (87) 08/31/17 13:30 69 20 152/86 (108) 99 Nasal Cannula 3 161/77 (105) Constitutional Vital Signs Date Time Temp Pulse Resp B/P (MAP) Pulse Ox O2 Delivery O2 Flow Rate FiO2 09/01/17 08:00 98 09/01/17 07:00 Nasal Cannula 3.00 95 09/01/17 06:00 102 09/01/17 04:00 99.7 112 15 174/74 (107) 95 09/01/17 04:00 112 09/01/17 02:00 104 09/01/17 00:00 97.5 103 16 147/67 (93) 98 09/01/17 00:00 103 08/31/17 22:00 85 08/31/17 20:00 84 08/31/17 20:00 98.1 85 12 156/77 (103) 100 08/31/17 19:00 Nasal Cannula 3.00 100 08/31/17 16:00 82 08/31/17 16:00 97.7 78 11 135/67 (89) 97 Arterial Line 08/31/17 15:00 70 08/31/17 14:30 72 12 112/59 (76) 99 Nasal Cannula 2 08/31/17 14:15 98.2 72 12 128/65 (86) 99 Nasal Cannula 2 107/54 (71) 08/31/17 14:00 69 12 124/61 (82) 98 Nasal Cannula 2 111/55 (73) 08/31/17 13:45 69 12 140/74 (96) 100 Nasal Cannula 3 136/63 (87) 08/31/17 13:30 69 20 152/86 (108) 99 Nasal Cannula 3 161/77 (105) Physical Exam Lethargic. Open eyes, moves all 4 extr, follows commands Medications Current Medications Current Medications Tetanus/ Diphtheria Toxoids (Tetanus/ Diphtheria Tox Adult) 0.5 ml ONCE ONCE IM Last administered on 08/30/17 15:42; Start 08/30/17 at 15:00; Stop at 15:03; Status DC Sodium Chloride 500 ml @ 500 mls/hr BOLUS ONCE IV Last administered on 15:42; Start 08/30/17 at 15:00; Stop 08/30/17 at 15:59; Status DC Acetaminophen (Tylenol) 500 mg ONCE ONCE PO Last administered on 08/30/17 15 :42; Start 08/30/17 at 15:00; Stop 08/30/17 at 15:03; Status DC Sodium Chloride (NS Flush) 2 ml UNSCH PRN IV FLUSH FLUSH AFTER USING IV ACCESS ; Start 08/30/17 at 15:30; Stop 08/30/17 at 17:40; Status DC Sodium Chloride 1,000 ml @ 84 mls/hr [id number] IV Last administered on 07:19; Start 08/30/17 at 18:00; Stop 08/31/17 at 14:31; Status DC Sodium Chloride (NS Flush) 2 ml UNSCH PRN IV FLUSH FLUSH AFTER USING IV ACCESS ; Start 08/30/17 at 16:15 Sodium Chloride (NS Flush) 2 ml BID IV FLUSH Last administered on 08/31/17 21 :14; Start 08/30/17 at 21:00 Acetaminophen (Tylenol) 650 mg Q6H PRN PO FEVER >101F; Start 08/30/17 at 16:15 ; Stop 08/31/17 at 14:32; Status DC Acetaminophen/ Hydrocodone Bitart ([place] 5-325 Mg) 1 tab Q4H PRN PO PAIN SCALE 1 TO 5 Last administered on 08/31/17 08:19; Start 08/30/17 at 16:15; Stop 08/31/17 at 14:31; Status DC Morphine Sulfate (Morphine Inj) 2 mg Q2H PRN IV PAIN 6 TO 10 Last administered on 08/31/17 06:09; Start 08/30/17 at 17:45; Stop 08/31/17 at 14:31; Status DC Famotidine (Pepcid Inj) 20 mg Q12HR IV PUSH Last administered on 08/31/17 08: 14; Start 08/30/17 at 21:00; Stop 08/31/17 at 14:33; Status DC Ondansetron HCl (Zofran Inj) 4 mg Q6H PRN IV PUSH NAUSEA OR VOMITING; Start at 16:15 Albuterol Sulfate (Albuterol Neb) 2.5 mg Q2HR NEB PRN INH SOB/WHEEZING; Start 08/30/17 at 16:15 Miscellaneous Information 1 [id number] XX ; Start 08/30/17 at 16:15 Chlorhexidine Gluconate (Chlorhexidine 2% Cloth) 3 pack Taper DAILY@04 TOP ; Start 08/31/17 at 04:00; Stop 08/27/18 at 03:59 Chlorhexidine Gluconate (Chlorhexidine 2% Cloth) 3 pack UNSCH PRN TOP HYGIENIC CARE; Start 08/30/17 at 16:15 Senna/Docusate Sodium (Christin-Colace) 1 tab BID PO Last administered on 08:16; Start 08/30/17 at 21:00; Stop 08/31/17 at 14:32; Status DC Magnesium Hydroxide (Milk Of Magnesia Liq) 30 ml Q12H PRN PO Mild constipation ; Start 08/30/17 at 16:15 Sennosides (Senokot) 17.2 mg Q12H PRN PO Moderate constipation; Start at 16:15 Bisacodyl (Dulcolax Supp) 10 mg DAILY PRN RECTAL SEVERE CONSITIPATION; Start 08/30/17 at 16:15 Lactulose (Lactulose Liq) 30 ml DAILY PRN PO SEVERE CONSITIPATION; Start 08/30 at 16:15 Atorvastatin Calcium (Lipitor) 40 mg HS PO Last administered on 08/30/17 21: 00; Start 08/30/17 at 21:00 Divalproex Sodium (Depakote Er) 1,500 mg HS PO Last administered on 08/30/17 21:00; Start 08/30/17 at 21:00 Doxepin HCl (SINEquan) 10 mg HS PO Last administered on 08/30/17 21:00; Start 08/30/17 at 21:00 Furosemide (Lasix) 40 mg DAILY PO Last administered on 08/31/17 08:16; Start 08/31/17 at 09:00 Isosorbide Mononitrate (Imdur) 30 mg DAILY PO Last administered on 08/31/17 08:15; Start 08/31/17 at 09:00; Stop 09/01/17 at 10:35; Status DC Lisinopril (Prinivil) 20 mg DAILY PO Last administered on 08/31/17 08:15; Start 08/31/17 at 09:00 Metoprolol Tartrate (Lopressor) 25 mg DAILY PO Last administered on 08/31/17 08:16; Start 08/31/17 at 09:00 Levetriacetam 500 mg/Sodium Chloride 105 ml @ 420 mls/hr Q12HR IV Last administered on 08/31/17 21:13; Start 08/30/17 at 21:00 Dextrose (D50w (Vial) Inj) 50 ml UNSCH PRN IV PUSH HYPOGLYCEMIA-SEE COMMENTS; Start 08/30/17 at 16:15 Glucagon (Glucagon Inj) 1 mg UNSCH PRN OTHER HYPOGLYCEMIA-SEE COMMENTS; Start 08/30/17 at 16:15 Insulin Human Regular (NovoLIN R SUPPLEMENTAL SCALE) 1 ACHS SLIDING SCALE SQ Last administered on 08/31/17 21:16; Start 08/30/17 at 17:00 Labetalol HCl (Trandate Inj) 10 mg Q1HR PRN IV PUSH SBP>150, DBP>90, HR>65 Last administered on 09/01/17 08:45; Start 08/30/17 at 16:15 Clevidipine 50 ml @ 2 mls/hr TITRATE PRN IV Blood Pressure Management; Start 08/30/17 at 16:15; Stop 09/01/17 at 09:56; Status DC Hydralazine HCl (Apresoline Inj) 10 mg Q1HR PRN IV PUSH SBP>150, DBP>90 Last administered on 09/01/17 03:39; Start 08/30/17 at 16:15 Nitroglycerin (Nitroglycerin 2% Oint) 2 inch Q6H PRN TOPICAL SBP>150, DBP>90; Start 08/30/17 at 16:15 Microfibriller Collagen Hemostat (Avitene Bandage) 1 bandage STK-MED ONCE .ROUTE Last administered on 08/31/17 12:15; Start 08/31/17 at 09:52; Stop 08/31/17 at 09:53; Status DC Gentamicin Sulfate (Gentamicin Inj) 240 mg STK-MED ONCE .ROUTE Last administered on 08/31/17 12:15; Start 08/31/17 at 09:53; Stop 08/31/17 at 09 :54; Status DC Thrombin (Thrombin Top Soln) 10,000 units STK-MED ONCE .ROUTE Last administered on 08/31/17 12:15; Start 08/31/17 at 09:53; Stop 08/31/17 at 09 :54; Status DC Gelatin (Gelfoam 100 Top) 1 foam STK-MED ONCE .ROUTE Last administered on 08/31 12:15; Start 08/31/17 at 09:53; Stop 08/31/17 at 09:54; Status DC Lidocaine/ Epinephrine (Xylocaine-Epi 1%-1:100,000 Inj) 50 ml STK-MED ONCE .ROUTE Last administered on 08/31/17 12:15; Start 08/31/17 at 09:55; Stop 08/31/17 at 09:56; Status DC Chlorhexidine Gluconate (Hibiclens 4% Top Soln) 1 applic HS TOP ; Start at 21:00; Stop 09/01/17 at 21:01 Nicardipine HCl (Cardene Inj) 25 mg STK-MED ONCE .ROUTE ; Start 08/31/17 at 10: 15; Stop 08/31/17 at 10:16; Status DC Vancomycin HCl (Vancomycin Inj) 1,000 mg STK-MED ONCE .ROUTE ; Start 08/31/17 at 10:43; Stop 08/31/17 at 10:44; Status DC Cefazolin Sodium/ Dextrose 50 ml @ As Directed STK-MED ONCE .ROUTE Last administered on 08/31/17 11:42; Start 08/31/17 at 10:44; Stop 08/31/17 at 10 :45; Status DC Levetriacetam (Keppra Inj) 1,000 mg STK-MED ONCE IV Last administered on 11:54; Start 08/31/17 at 11:41; Stop 08/31/17 at 11:42; Status DC Potassium Chloride/Sodium Chloride 1,000 ml @ 100 mls/hr Q10H IV Last administered on 08/31/17 23:05; Start 08/31/17 at 13:16; Stop 09/01/17 at 08 :19; Status DC IV Flush (NS Flush) 2 ml UNSCH PRN IVF FLUSH AFTER USING IV ACCESS; Start at 13:30; Stop 08/31/17 at 14:31; Status DC IV Flush (NS Flush) 2 ml BID IVF ; Start 08/31/17 at 21:00; Stop 08/31/17 at 21:00; Status DC Cefazolin Sodium/ Dextrose 50 ml @ 100 mls/hr Q8H IV Last administered on 01:37; Start 08/31/17 at 18:00; Stop 09/01/17 at 10:29; Status DC Levetriacetam 500 mg/Sodium Chloride 105 ml @ 400 mls/hr Q12H IV ; Start 08/31 at 13:30; Stop 08/31/17 at 14:26; Status DC Bisacodyl (Dulcolax Supp) 10 mg DAILY PRN RECTAL SEE LABEL COMMENTS; Start at 13:30; Stop 08/31/17 at 14:37; Status DC Docusate Sodium (Colace) 100 mg BID PO ; Start 08/31/17 at 21:00 Pantoprazole Sodium (Protonix) 40 mg DAILY PO ; Start 09/01/17 at 09:00; Stop 09/01/17 at 10:34; Status DC Pantoprazole Sodium (Protonix Inj) 40 mg DAILY IVP ; Start 09/01/17 at 09:00; Stop 09/01/17 at 09:00; Status DC Ondansetron HCl (Zofran Inj) 4 mg Q6H PRN IV PUSH NAUSEA OR VOMITING; Start at 13:30; Stop 08/31/17 at 14:30; Status DC Calcium Gluconate (Calcium Gluconate Inj) 1 gm UNSCH PRN IV SEE LABEL COMMENTS ; Start 08/31/17 at 13:30 Potassium Chloride 100 ml @ 50 mls/hr UNSCH PRN IV POTASSIUM LESS THAN 4; Start 08/31/17 at 13:30 Magnesium Sulfate 4 gm/Sodium Chloride 108 ml @ 108 mls/hr UNSCH PRN IV MAGNESIUM LESS THAN 2 Last administered on 09/01/17 06:10; Start 08/31/17 at 13:30 Acetaminophen/ Hydrocodone Bitart ([place] 10-325 Mg) 1 tab Q4H PRN PO PAIN SCALE 1 TO 5; Start 08/31/17 at 13:30 Acetaminophen/ Hydrocodone Bitart ([place] 10-325 Mg) 2 tab Q4H PRN PO PAIN SCALE 6 TO 10; Start 08/31/17 at 13:30 Morphine Sulfate (Morphine Inj) 2 mg Q2H PRN IV PUSH PAIN SCALE 1 TO 6 Last administered on 09/01/17 06:15; Start 08/31/17 at 13:30 Morphine Sulfate (Morphine Inj) 4 mg Q2H PRN IV PUSH PAIN SCALE 7 TO 10; Start 08/31/17 at 13:30 Acetaminophen (Tylenol) 650 mg Q4H PRN PO TEMPERATURE > 101.5 F; Start at 13:30 Morphine Sulfate (*morphine INJ PERIprocedure ONLY) 8 mg STK-MED ONCE .ROUTE Last administered on 08/31/17 13:32; Start 08/31/17 at 13:31; Stop 08/31/17 at 13:32; Status DC Miscellaneous Information ALL NURSING DEPARTME... UNSCH PRN .XX SEE LABEL COMMENTS; Start 08/31/17 at 13:20; Stop 09/01/17 at 13:19; Status DC Morphine Sulfate (*morphine INJ PERIprocedure ONLY) 8 mg STK-MED ONCE .ROUTE Last administered on 08/31/17 14:16; Start 08/31/17 at 14:16; Stop 08/31/17 at 14:17; Status DC Morphine Sulfate (*morphine INJ PERIprocedure ONLY) 8 mg STK-MED ONCE .ROUTE Last administered on 08/31/17 14:45; Start 08/31/17 at 14:45; Stop 08/31/17 at 14:46; Status DC Magnesium Sulfate/ Dextrose 100 ml @ 100 mls/hr Q1H IV ; Start 09/01/17 at 09: 00; Stop 09/01/17 at 11:59; Status DC Cholecalciferol (Vitamin D3) 1,000 units DAILY PO ; Start 09/01/17 at 09:00 Insulin Detemir (Levemir Inj) 15 units HS SQ ; Start 09/01/17 at 21:00; Stop 09/01/17 at 21:00; Status DC Tolterodine Tartrate (Detrol La) 2 mg DAILY PO ; Start 09/01/17 at 09:00 Non-Formulary Medication 5 mg DAILY PO ; Start 09/01/17 at 09:00; Status UNV Patient Own Medication PT OWN MED: LINAGLIP... DAILY PO ; Start 09/01/17 at 09: 00; Status Future Hold Mupirocin (Bactroban Nasal 2% Oint) 1 applic Taper BID EACH NARE ; Start at 10:00; Stop 08/28/18 at 09:59 Etomidate (Amidate Inj) 40 mg ONCE ONCE IV PUSH ; Start 09/01/17 at 10:00; Stop 09/01/17 at 10:01; Status DC Rocuronium [place] (Zemuron Inj) 100 mg BOLUS ONCE IV ; Start 09/01/17 at 10: 00; Stop 09/01/17 at 10:01; Status DC Chlorhexidine Gluconate (Peridex 0.12% Liq) 15 ml BID@08,20 MT ; Start at 20:00 Propofol 100 ml @ 2.79 mls/hr TITRATE PRN IV SEDATION; Start 09/01/17 at 09: 45 Fentanyl Citrate 250 ml @ 5 mls/hr TITRATE PRN IV SEDATION; Start 09/01/17 at 09:45 Sodium Chloride 500 ml @ 20 mls/hr NOW IV ; Start 09/01/17 at 10:00; Stop at 09:59 Nicardipine HCl 25 mg/Sodium Chloride 250 ml @ 50 mls/hr TITRATE PRN IV Blood pressure management; Start 09/01/17 at 10:00 Fentanyl Citrate (fentaNYL INJ) 100 mcg STK-MED ONCE .ROUTE ; Start 09/01/17 at 09:55; Stop 09/01/17 at 09:56; Status DC Rocuronium [place] (Zemuron Inj) 100 mg STK-MED ONCE .ROUTE ; Start 09/01/17 at 09:56; Stop 09/01/17 at 09:57; Status DC Propofol 50 ml @ As Directed STK-MED ONCE .ROUTE ; Start 09/01/17 at 09:57; Stop 09/01/17 at 09:58; Status DC Sodium Chloride (NS Flush) DAILY IV FLUSH ; Start 09/01/17 at 10:30 Sodium Chloride (NS Flush) UNSCH PRN IV FLUSH SEE PROTOCOL; Start 09/01/17 at 10:30 Artificial Tears (Tears Naturale Opth Soln) 1 drop Q8HR EACH EYE ; Start at 14:00 Famotidine (Pepcid Inj) 20 mg Q12H IV PUSH ; Start 09/01/17 at 11:00 Isosorbide Dinitrate (Isordil) 10 mg Q8HR PO ; Start 09/01/17 at 14:00 Medical Decision Making MDM Remarks Last 48 hours Impressions Chest X-Ray 09/01/17 1029 Signed Impressions: Service Date/Time: Friday, September 01, 2017 11:35 - CONCLUSION: 1. Left internal jugular central line in good position. 2. Right base atelectasis or consolidation. Nacho Sood MD Head CT 09/01/17 0000 Signed Impressions: Service Date/Time: Friday, September 01, 2017 08:58 - CONCLUSION: 1. Status post right craniotomy with placement of a subdural and superficial scalp drain. The previously seen subdural hemorrhage has been successfully treated. 2. Development of subarachnoid hemorrhage, a 2.6 cm right frontoparietal focal hematoma, interventricular hemorrhage, and a small 0.9 cm right cerebellar focal hemorrhage. Nacho Sood MD Head CT 08/31/17 0600 Signed Impressions: Service Date/Time: Thursday, August 31, 2017 04:46 - CONCLUSION: 1. Right- sided subdural hemorrhage slightly more prominent measuring 1.9 cm. Minimal right to left midline shift a 1 mm. Fantasma Miller MD Chest X-Ray 08/31/17 0000 Signed Impressions: Service Date/Time: Thursday, August 31, 2017 10:00 - CONCLUSION: No acute cardiopulmonary abnormality is identified. Nacho Buckley MD Attending Statement intubated electively for airway protection. Ct was reviewed. HTN. Treat with antihypertensives as needed acetaminophen/cooling blanket as needed for temperature greater than 100.4 respiratory Mechanical ventilation. Continue aggressive pulmonary toilette, nasotracheal suction, and breathing treatments with nebulizers. Nutrition. NPO Anemia. Chronic. Monitor H and H Renal. monitor closely urine output, BUN and creatinine Porter. Monitor intake and output. Monitor electrolytes and replace as indicated per ICU electrolyte replacement protocol. ENDO:Acute hyperglycemia secondary to trauma. Monitor bedside glucose and initiate low-dose insulin sliding scale as indicated for glucose greater than 180 Protonix for stress ulcer prophylaxis The exam, history, and the medical decision-making described in the above note were completed with the assistance of the mid-level provider. I reviewed and agree with the findings presented. I attest that I had a [id number] encounter with the patient on the same day, and personally performed and documented my assessment and findings in the medical record. Yannick Aiken MD Sep 01, 2017 13:33
--- NOTE | 2017-09-01 13:39 | OTSOAPIP ---
PATIENT WAS INTUBATED WILL REMOVE FROM PATIENT LIST . WHEN MEDICALLY STABLE REQUEST RESTART ORDERS. Therapist: Fiorella Haider OTR/L Signature on file
[2017-09-01 13:51] LABS: BLOOD GAS BASE EXCESS -1.3 mmol/L (-2-2); BLOOD GAS HCO3 22 mmol/L (22-26); BLOOD GAS METHEMOGLOBIN 0.7 % (0-2); BLOOD GAS O2 HGB SATURATION 98 % (90-100); BLOOD GAS OXYGEN CONTENT 15.4 Vol % (12.0-20.0); BLOOD GAS PCO2 31 mmHg (38-42); BLOOD GAS PO2 359 mmHg (61-120); BLOOD GAS TOTAL HGB 10.6 G/DL (12.0-16.0); CRITICAL VALUE NO; TEMP CORR TO 98.6
[2017-09-01 13:52] LABS: OXYGEN DEVICE VENT
[2017-09-01 13:53] LABS: DRAW SITE RT RADIAL; FIO2 100 %; NUMBER OF ARTERIAL PUNCTURES 1; STAT NO; ULNAR PULSE PRESENT; VENT SETTINGS AC/500/18/5/IT1.0
[2017-09-01] MEDS: ARTIFICIAL TEARS OPTH SOLN 15 ML BTL EACH EYE SCH ×2 (13:59→21:26)
[2017-09-01] MEDS: ISOSORBIDE DINITRATE 10 MG TAB PO SCH ×2 (14:00→21:25)
[2017-09-01] MEDS: PROPOFOL 1000 MG/100 ML INJ 100 ML IV PRN ×2 (14:43→19:53)
[2017-09-01] MEDS: FAMOTIDINE 20 MG/2 ML VIAL IV PUSH SCH ×2 (14:43→22:53)
[2017-09-01] MEDS ORDERED: MAGNESIUM SULFATE 1 GM PREMIX 100 ML ONE ×3 (14:45→18:07)
--- NOTE | 2017-09-01 18:51 | RADRPT ---
EXAM DATE/TIME: 09/01/2017 18:29 [facility] COMPARISON: No previous studies available for comparison. INDICATIONS : Naso-gastric tube placement. MEDICAL HISTORY : Hypertension. SURGICAL HISTORY : None. ENCOUNTER: Initial ACUITY: 1 day PAIN SCORE: Non-responsive. LOCATION: abdomen FINDINGS: Examination of the abdomen demonstrates a normal bowel gas pattern. No free air is identified. No o rganomegaly is evident. Osseous structures are intact. A nasogastric tube is seen in the stomach wit h the tip projecting towards the GE junction after coiling within the stomach. Cholecystectomy clips. CONCLUSION: Nasogastric tube coiled in the stomach with the tip projecting towards the GE junction. Migue Cuenca Jr., MD on September 01, 2017 at 18:49 Board Certified Radiologist. This report was verified electronically.
[2017-09-01] MEDS: fentaNYL DRIP 250 ML IV PRN (19:53)
[2017-09-01] MEDS: CHLORHEXIDINE 0.12% (ORAL KIT) 15 ML CUP MT SCH (19:54)
[2017-09-01] MEDS: CHLORHEXIDINE GLUCONATE 4% SOLN 120 ML BTL TOP SCH (20:54)
[2017-09-01] MEDS: DIVALPROEX SODIUM E.R. 500 MG TAB PO SCH (20:54)
[2017-09-01] MEDS ORDERED: INSULIN DETEMIR 100 UNITS/ML VIAL SQ SCH (21:00)
[2017-09-01] MEDS: DOXEPIN HCL 10 MG CAP PO SCH (21:21)
[2017-09-01] MEDS: ATORVASTATIN 40 MG TAB PO SCH (21:22)
--- NOTE | 2017-09-01 23:27 | MG ---
cc: VIMAL VEGA MD Lab No: Date: 08/31/17 Age: Sex: F Race: REFERRING PHYSICIAN Dr. Rodas MEDICAL HISTORY Schizoaffective disorder, bipolar, seizure. hypertension, hyperlipidemia, diabetes, hyperthyroidism, right nephrectomy. The patient slipped and fell on wet grass hitting the right side of her face and head on concrete. MEDICATIONS 1. Cefazolin 2. Magnesium sulfate 3. Morphine 4. Trandate 5. Alprazolam DESCRIPTION The EEG was done and the patient was sedated with Diprivan 30 mcg, they were unable to turn off, as patient was intubated one hour before the EEG is performed because of altered mental status. The background activity is 5-6 Hz theta. During the EEG recording, there was generalized slowing in the background with polymorphic, beta and intermittent delta activity. There is some slowing, more on the right side. There were no electrographic seizures or epileptiform discharges noted. Hyperventilation was not done. Photic stimulation did not elicit a driving response. INTERPRETATION This is an abnormal drowsy EEG. The generalized slowing may indicate a global encephalopathy that may be secondary to medication effects, metabolic derangements or hypoxic effect. The slowing on the right hemisphere may indicate a structural lesion. Absence of electrographic seizures or epileptiform discharges does not exclude the diagnosis of epilepsy. Clinical correlation is recommended. MD YVONNE Lilly/ /10:40 PM /11:15 PM [facility]
[2017-09-02] VITALS (18 sets, daily range): BP systolic 100–137; BP diastolic 52–72; PULSE 61–95; RESP 14–16; TEMP 97.6–99.7; O2SAT 100
[2017-09-02] MEDS: PROPOFOL 1000 MG/100 ML INJ 100 ML IV PRN ×5 (01:28→21:51)
[2017-09-02 04:47] LABS: BASOPHIL % 0.3 % (0.0-2.0); EOSINOPHIL # 0.1 TH/MM3 (0-0.4); EOSINOPHIL % 0.6 % (0.0-4.0); HEMATOCRIT 29.6 % (35.0-46.0); HEMO FLAGS DIFF FINAL; LYMPH % 15.3 % (9.0-44.0); LYMPHOCYTE # 1.3 TH/MM3 (1.0-4.8); MEAN CELL VOLUME 85.1 FL (80.0-100.0); MEAN CORPUSCULAR HEMOGLOBIN 27.9 PG (27.0-34.0); MEAN CORPUSCULAR HGB CONC 32.8 % (32.0-36.0); NEUT % 68.8 % (16.0-70.0); PLATELET COUNT 167 TH/MM3 (150-450); RED BLOOD COUNT 3.47 MIL/MM3 (4.00-5.30); WHITE BLOOD COUNT 8.8 TH/MM3 (4.0-11.0)
[2017-09-02 05:04] LABS: ALKALINE PHOSPHATASE 68 U/L (45-117); ALT (GPT) 19 U/L (10-53); ANION GAP 8 MEQ/L (5-15); AST (GOT) 18 U/L (15-37); BICARBONATE 23.2 MEQ/L (21.0-32.0); BLOOD UREA NITROGEN 9 MG/DL (7-18); CHLORIDE 117 MEQ/L (98-107); GLOMERULAR FILTRATION RATE 150 ML/MIN (>89); MAGNESIUM 2.2 MG/DL (1.5-2.5); POTASSIUM 3.3 MEQ/L (3.5-5.1); SODIUM (NA) 148 MEQ/L (136-145); TOTAL BILIRUBIN ADULT 0.5 MG/DL (0.2-1.0)
--- NOTE | 2017-09-02 05:32 | RADRPT ---
EXAM DATE/TIME: 09/02/2017 04:41 [facility] COMPARISON: CT BRAIN W/O CONTRAST, August 30, 2017, 15:09. CT BRAIN W/O CONTRAST, August 31, 2017, 4:46. CT B RAIN W/O CONTRAST, September 01, 2017, 8:58. INDICATIONS : Follow up subdural hematoma; post craniotomy. RADIATION DOSE: 56.35 CTDIvol (mGy) MEDICAL HISTORY : Cardiovascular disease. Hypertension. Renal cell carcinoma. SURGICAL HISTORY : Tubal ligation. Right nephrectomy ENCOUNTER: Subsequent ACUITY: 2 days PAIN SCALE: Non-responsive LOCATION: cranial TECHNIQUE: Multiple contiguous axial images were obtained of the head. Using automated exposure control and adj ustment of the mA and/or kV according to patient size, radiation dose was kept as low as reasonably a chievable to obtain optimal diagnostic quality images. DICOM format image data is available electro nically for review and comparison. FINDINGS: The patient is again noted to be status post right parietal temporal craniotomy. A subdural drai nage catheter remains in place along the right temporal bone without change. There is been a mild int erval decrease in the subarachnoid hemorrhage over the parietal convexities. The intraparenchymal hem orrhage in the inferior right parietal lobe is not significantly changed. No residual subdural hemato ma is identified. Small punctate area of high density hemorrhage in the right cerebellar hemisphere i s unchanged. There is a small amount of intraventricular hemorrhage layering in the occipital horns. No significant midline shift is now identified. There is no new hemorrhage. CONCLUSION: 1. Mild interval improvement in subarachnoid hemorrhage over the parietal convexities. 2. Stable intraparenchymal hemorrhage in the right parietal lobe and right cerebellar hemisphere. 3. The subdural drainage catheter remains in place with no residual subdural hematoma. 4. No new hemorrhage or mass effect. Tyree Wise MD on September 02, 2017 at 5:25 Board Certified Radiologist. This report was verified electronically.
[2017-09-02 05:48] LABS: BLOOD GAS BASE EXCESS -1.8 mmol/L (-2-2); BLOOD GAS CARBOXYHEMOGLOBIN 1.1 % (0-4); BLOOD GAS HCO3 22 mmol/L (22-26); BLOOD GAS METHEMOGLOBIN 1.2 % (0-2); BLOOD GAS O2 HGB SATURATION 96 % (90-100); BLOOD GAS OXYGEN CONTENT 15.8 Vol % (12.0-20.0); BLOOD GAS PCO2 33 mmHg (38-42); BLOOD GAS PO2 104 mmHg (61-120); BLOOD GAS TOTAL HGB 11.6 G/DL (12.0-16.0); CRITICAL VALUE NO; OXYGEN DEVICE VENT; TEMP CORR TO 98.6
[2017-09-02 05:49] LABS: DRAW SITE ART LINE; FIO2 40 %; STAT NO; ULNAR PULSE PRESENT; VENT SETTINGS SEE COMMENTS
[2017-09-02] MEDS: ARTIFICIAL TEARS OPTH SOLN 15 ML BTL EACH EYE SCH ×3 (06:00→21:03)
[2017-09-02] MEDS: ISOSORBIDE DINITRATE 10 MG TAB PO SCH ×3 (06:29→21:04)
[2017-09-02] MEDS ORDERED: POTASSIUM CHLORIDE 25 MEQ EFFERVESCENT TAB PO PRN (06:30)
[2017-09-02] MEDS ORDERED: POTASSIUM CHLOR 20 MEQ PREMIX 100 ML IV PRN ×2 (06:30)
[2017-09-02] MEDS ORDERED: MAGNESIUM SULFATE INJ 4 GM in SODIUM CHLORIDE 0.9% INJ 92 ML IV PRN (06:30)
[2017-09-02] MEDS ORDERED: POTASSIUM PHOSPHATE MONOBASIC 500 MG TAB PO PRN (06:30)
[2017-09-02] MEDS ORDERED: MAGNESIUM OXIDE 400 MG TAB PO PRN (06:30)
[2017-09-02] MEDS ORDERED: MAGNESIUM SULFATE INJ 2 GM in SODIUM CHLORIDE 0.9% INJ 96 ML IV PRN (06:30)
[2017-09-02] MEDS ORDERED: POTASSIUM PHOSPHATE MONOBASIC 500 MG TAB PO/TUBE PRN (06:30)
[2017-09-02] MEDS ORDERED: SODIUM PHOSPHATE INJ 30 MMOL in SODIUM CHLOR 0.9% 250 ML INJ 240 ML IV PRN (06:30)
--- NOTE | 2017-09-02 06:30 | HHI.CCPN ---
Subjective Remarks/Hospital Course 57-year-old AA female . Date of admission 08/30/2017. Past medical history includes schizoaffective/bipolar, depression, seizure disorder, hypertension, dyslipidemia, diabetes and allergic rhinitis. She is not on any blood thinners or aspirin. This patient was walking from [employer] in approximately 6 AM this morning when she suffered a fall and landed on the right side of her face.. She states she slipped in the wet grass hitting her face on the concrete. No loss of consciousness. Not seizure activity noted. Not tongue biting. No incontinence of stool or urine. 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 Patient states that she's been having a headache and right-sided facial pain since. 08/30 CT of the brain showed a right frontotemporal subdural hematoma 1.6 cm with a 3 mm right to left shift. Maxillofacial CT revealed a nondisplaced right nasal fracture. CT spine negative. CBC showed normocytic anemia. BMP is pending. Elevated PTT coags at 33. Patient was loaded with 500 mg levetiracetam, given as needed for elevated blood pressure stabilized in the ED. Neurosurgical consultation was requested with Dr. Aiken. 08/31: Afebrile. CT brain revealed increased diameter right-sided subdural hematoma up to 1.9 cm. Shift is 1 mm right to left. Positive headache. No seizure activity. No real focal neurological deficits. 09/01: Patient subjective a weak left upper and lower extremity greater than right. Mumbling words. Stat CT brain revealed 2.6 cm image right intraparenchymal hemorrhage on the right temporal parietal region, 0.9 cm right cerebellar hemorrhage and bilateral subarachnoid hemorrhage convex's. Notified Dr. Aiken. Patient was intubated for airway protection and central line placed for hypertonic saline Subjective 09/02: Tmax 99.9. Improved subarachnoid hemorrhage. Stable right intraparenchymal hemorrhages. Potassium and phosphorus been replaced. No bowel movement. Objective Vital Signs Date Time Temp Pulse Resp B/P (MAP) Pulse Ox O2 Delivery O2 Flow Rate FiO2 09/02/17 06:00 81 09/02/17 05:45 100 40 09/02/17 04:00 99.4 16 118/57 (77) 09/01/17 07:00 Nasal Cannula 3.00 Result Diagram: 09/02/17 0430 09/02/17 0430 Imaging Last Impressions Chest X-Ray 09/01/17 1029 Signed Impressions: Service Date/Time: Friday, September 01, 2017 11:35 - CONCLUSION: 1. Left internal jugular central line in good position. 2. Right base atelectasis or consolidation. Nacho oSod MD Head CT 09/01/17 0000 Signed Impressions: Service Date/Time: Friday, September 01, 2017 08:58 - CONCLUSION: 1. Status post right craniotomy with placement of a subdural and superficial scalp drain. The previously seen subdural hemorrhage has been successfully treated. 2. Development of subarachnoid hemorrhage, a 2.6 cm right frontoparietal focal hematoma, interventricular hemorrhage, and a small 0.9 cm right cerebellar focal hemorrhage. Nacho Sood MD Abdomen X-Ray 09/01/17 0000 Signed Impressions: Service Date/Time: Friday, September 01, 2017 18:29 - CONCLUSION: Nasogastric tube coiled in the stomach with the tip projecting towards the GE junction. Migue Cuenca Jr., MD Maxillofacial CT 08/30/17 0000 Signed Impressions: Service Date/Time: August 15:13 - CONCLUSION: 1. There is a minimally depressed right nasal bone fracture with adjacent soft tissue swelling. No other fracture is visualized. 2. Please refer to head CT report for description of the right subdural hematoma. Nacho Buckley MD Lumbar Spine CT 08/30/17 0000 Signed Impressions: Service Date/Time: August 17:59 - CONCLUSION: Negative examination. Alec Latham MD Cervical Spine CT 08/30/17 0000 Signed Impressions: Service Date/Time: August 15:12 - CONCLUSION: 1. No acute fracture or subluxation. Skinny Muñiz MD Objective Remarks GENERAL: 49-year-old female, resting in bed orotracheally intubated SKIN: Warm and dry. Abrasions to the right cheek and chin with evolving ecchymoses HEAD: Status post right craniotomy with subdural, scalp drain in place EYES: Pupils equal and round about 3 mm bilaterally and reactive. Right leg is somewhat swollen protuberant. No scleral icterus. No injection or drainage. ENT: No nasal bleeding or discharge. Mucous membranes pink and moist. NECK: Trachea midline. No JVD. CARDIOVASCULAR: Tachycardia, RR. S1, S2. No S4. Without murmur RESPIRATORY: Clear to auscultation. Breath sounds equal bilaterally. GASTROINTESTINAL: Abdomen soft, non-tender, nondistended. Bowel sounds are sluggish but appreciated MUSCULOSKELETAL: Extremities without significant peripheral edema. No obvious deformities. NEUROLOGICAL: Arousable but falls asleep. Prior to intubation Follows commands weakly bilateral upper and lower extremities. Strength greater than lower extremity's and O's. Right greater than left. Normal sensation. Gait was not assessed.. Currently sedated on propofol and fentanyl drips Urinary Catheter: Yes Assessment to: Continue Porter insert reason: Prolonged Immobilization Vascular Central Line Catheter: Yes Assessment to: Continue Date of Insertion: Sep 01, 2017 Line: Central Venous Catheter Side: Left Location: Internal, Jugular A/P Assessment and Plan Neuro/Psych: Postop day 2 right craniotomy with evacuation of subdural hematoma 2.6 cm right parietal/temporal intracranial hemorrhage, 0.9 cm right subdural hemorrhage and bilateral subarachnoid hemorrhage Right subdural hematoma - 1.6 cm fronto temporal with a 3 mm right to left shift Right closed nondisplaced nasal fracture Schizoaffective disorder Bipolar disorder Depression Seizure disorder NOS Propofol/fentanyl drips submitted for sedation/analgesia while intubated Goal of RA SS -[address] brain 08/30 revealed a right frontal temporal subdural hematoma 1.6 cm thickness with a 3 mm right to left shift. Nondisplaced right nasal bone fracture. CT brain 09/01 revealed 2.6 cm right parietal intracranial hemorrhage, 0.9 cm right subdural hemorrhage and bilateral subarachnoid hemorrhage CT brain 08/31 revealed stable intraparenchymal hemorrhage improving subarachnoid hemorrhage at the convex Levetiracetam 500 mg IV twice a day for seizure prophylaxis 7 days Goal keep systolic blood pressure less than 140. Neurochecks Head of bed at [address] Aiken/neurosurgery Continue divalproex 1500 mg a night. Repeat level in a.m. Currently on 3% saline goal 150-155 End tidal CO2 35-40 Continue doxepin 10 mg by mouth daily Holding loratadine 10 mg by mouth daily CV: Hypertension Dyslipidemia Continue metoprolol 25 mg daily for hypertension. Continue Prinivil 20 mg by mouth daily. Continue isosorbide mononitrate 30 mg by mouth daily but switch to isosorbide dinitrate 10 mg 3 times a day As needed labetalol, hydralazine, Nitropaste and nicardipine drip to keep systolic blood pressure less than 140 Continue atorvastatin 40 mg by mouth daily for dyslipidemia Resp: Nasal cannula to maintain saturations greater than or equal to 92% Incentive spirometry while awake GI: Patient is currently nothing by mouth. Start tube feeding with vital 1.5 goal 50 cc an hour Famotidine for GI prophylaxis Docusate sodium/senna and polyethylene glycol twice a day for bowel regimen : Incontinence Porter catheter if indicated for accurate I's and O's in a critically ill patient Holding Tolterodine 2 mg by mouth daily. Resume when clinically indicated Endo: Diabetes History of hypothyroidism/thyroid nodules Holding metformin 1000 mg daily andLinagliptin 5 mg daily for diabetes. Sliding-scale insulin with Accu-Cheks to maintain euglycemia and add detemir 10 units twice a day Renal: History of renal cell carcinoma status post right nephrectomy Patient is currently on normal saline at 84 cc an hour Monitor urine output Accurate I's and O's Follow-up ER BMP not completed Heme: Normocytic anemia Elevated PTT Monitor CBC daily. Follow trends Does not meet transfusion thresholds at this time ID: Monitor for infection FEN: Hypophosphatemia Hypokalemia Replace electrolytes as clinically indicated per ICU electrolyte protocol. Recheck potassium and phosphorus at 1500 Holding cholecalciferol 1000 U daily. Resume when clinically indicated MSK: Osteoarthritis Physical therapy evaluate and treat Access -Left IJ CVL day #2 Prophylaxis - GI famotidine - DVT- SCD/holding pharmacological prophylaxis in light of subdural hematoma Critical care time 35 minutes Calvin Rodas MD Sep 02, 2017 06:30
[2017-09-02] MEDS: CHLORHEXIDINE 0.12% (ORAL KIT) 15 ML CUP MT SCH ×2 (07:49→19:57)
[2017-09-02] MEDS: INSULIN NovoLIN REGULAR SUPPLEMENTAL SCALE SQ SCH ×4 (07:52→21:00)
[2017-09-02] MEDS: MUPIROCIN 2% OINT 1 APPLIC/GM SYR EACH NARE SCH ×2 (07:52→21:00)
[2017-09-02] MEDS: FUROSEMIDE 40 MG TAB PO SCH (08:25)
[2017-09-02] MEDS: DOCUSATE SODIUM 100 MG/10 ML UDC PO SCH ×2 (08:25→21:01)
[2017-09-02] MEDS: TOLTERODINE TARTRATE 2 MG CAP LA PO SCH (08:25)
[2017-09-02] MEDS: CHOLECALCIFEROL (VIT D3) 1000 UNIT TAB PO SCH (08:26)
[2017-09-02] MEDS: SENNOSIDES SYRUP 8.8 MG/5 ML CUP PO SCH ×2 (08:26→21:02)
[2017-09-02] MEDS: METOPROLOL TARTRATE 25 MG TAB PO SCH ×2 (08:26→08:34)
[2017-09-02] MEDS: SODIUM CHLORIDE 0.9% FLUSH 10 ML FLUSH IV FLUSH SCH ×3 (08:26→21:02)
[2017-09-02] MEDS: POLYETHYLENE GLYCOL 17 GM PKG PO SCH ×2 (08:26→21:03)
[2017-09-02] MEDS: LISINOPRIL 20 MG TAB PO SCH ×2 (08:26→08:34)
[2017-09-02] MEDS: INSULIN DETEMIR 100 UNITS/ML VIAL SQ SCH ×2 (08:27→21:03)
[2017-09-02] MEDS: levETIRAcetam INJ 500 MG in SODIUM CHLORIDE 0.9% INJ 100 ML IV SCH ×2 (08:27→21:01)
[2017-09-02] MEDS: POTASSIUM PHOSPHATE INJ 30 MMOL in SODIUM CHLOR 0.9% 250 ML INJ 250 ML IV PRN (08:28)
--- NOTE | 2017-09-02 10:21 | HHI.NSPN ---
(Carmen Chamberlain) Note Status Status: Progress Note (Carmen Chamberlain) Interval History Interval History This is a 57-year-old female who apparently is status post slip and fall around 6 AM this morning. She states she was on her way to [facility] [employer] she had some eggs when she slipped in the wet grass hitting her face on the concrete. No loss of consciousness. Not seizure activity noted. Not tongue biting. No incontinence of stool or urine. 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 Patient states that she' s been having a headache and right-sided facial pain since. She denies any chest pain, shortness of breath, change in vision, numbness or tingling anywhere , neck pain, back pain, loss or change in bowel or bladder, or being on any blood thinners. She is moving where both upper and lower extremities without any focal deficit. CT of the brain showed a right sided accurate subdural hematoma causing mass effect and midline shift. The subdural was hematoma 1.6 cm thick with a 3 mm right to left shift. Maxillofacial CT revealed a nondisplaced right nasal fracture. CT spine negative. Neurosurgical consultation was requested 09/01: Letahrgic today. Open eyes follows commands withn all [address] brain showed new frontal and post fossa bleed 09/02: remains intubated, off sedation she slightly opens eyes and moves all four extremities. EEG yesterday neg for seizures. (Carmen Chamberlain) Labs, Micro, & Vital Signs Results Date Time Temp Pulse Resp B/P (MAP) Pulse Ox O2 Delivery O2 Flow Rate FiO2 09/02/17 08:50 100 40 09/02/17 06:00 81 09/02/17 05:45 40 09/02/17 05:45 100 40 09/02/17 05:12 100 40 09/02/17 04:00 83 09/02/17 04:00 99.4 83 16 118/57 (77) 100 09/02/17 04:00 40 09/02/17 04:00 83 118/57 09/02/17 02:00 95 09/02/17 00:30 40 09/02/17 00:30 90 153/81 09/02/17 00:27 100 50 09/02/17 00:00 89 09/02/17 00:00 99.7 89 16 137/72 (93) 100 09/02/17 00:00 50 09/01/17 22:00 86 09/01/17 21:22 100 50 09/01/17 20:00 86 09/01/17 20:00 50 09/01/17 20:00 99.3 86 16 115/64 (81) 100 09/01/17 19:53 87 121/65 09/01/17 19:45 86 112/63 09/01/17 18:00 89 09/01/17 18:00 50 09/01/17 17:59 100 50 09/01/17 16:32 100 50 09/01/17 16:00 100 09/01/17 16:00 99.9 94 16 107/59 (75) 100 09/01/17 14:01 96 114/60 09/01/17 14:00 50 09/01/17 14:00 99 09/01/17 12:00 100 09/01/17 12:00 99.8 96 16 116/70 (85) 100 09/01/17 12:00 100 50 09/01/17 11:00 99 175/81 Constitutional Vital Signs Date Time Temp Pulse Resp B/P (MAP) Pulse Ox O2 Delivery O2 Flow Rate FiO2 09/02/17 08:50 100 40 09/02/17 06:00 81 09/02/17 05:45 40 09/02/17 05:45 100 40 09/02/17 05:12 100 40 09/02/17 04:00 83 09/02/17 04:00 99.4 83 16 118/57 (77) 100 09/02/17 04:00 40 09/02/17 04:00 83 118/57 09/02/17 02:00 95 09/02/17 00:30 40 09/02/17 00:30 90 153/81 09/02/17 00:27 100 50 09/02/17 00:00 89 09/02/17 00:00 99.7 89 16 137/72 (93) 100 09/02/17 00:00 50 09/01/17 22:00 86 09/01/17 21:22 100 50 09/01/17 20:00 86 09/01/17 20:00 50 09/01/17 20:00 99.3 86 16 115/64 (81) 100 09/01/17 19:53 87 121/65 09/01/17 19:45 86 112/63 09/01/17 18:00 89 09/01/17 18:00 50 09/01/17 17:59 100 50 09/01/17 16:32 100 50 09/01/17 16:00 100 09/01/17 16:00 99.9 94 16 107/59 (75) 100 09/01/17 14:01 96 114/60 09/01/17 14:00 50 09/01/17 14:00 99 09/01/17 12:00 100 09/01/17 12:00 99.8 96 16 116/70 (85) 100 09/01/17 12:00 100 50 09/01/17 11:00 99 175/81 (Carmen Chamberlain) Review of Systems ROS Limitations: Intubated (Carmen Chamberlain) Physical Exam Ms. Haider is intubated and sedated. Surgical wound is clean and dry. KRISS drain 1 with moderate serosanguineous output. KRISS drain 2 with minimal drainage. Cranial Nerves: Pupils 2-3 mm equal, round, reactive to light. Eyes appear conjugated. Face musculature appeared symmetrical at rest. Right periorbital swelling and conjunctival hemorrhage improving Cervical Spine: soft, supple, without nuchal rigidity. Motor: withdrawing legs to local pain stimuli, slight movement in right upper seen Reflexes: Deep tendon reflexes are trace throughout. Plantars neutral bilaterally. Sensory: On examination there is response to painful stimuli, localizing with both upper and lower extremities. Cerebellar: Examination cannot be adequately assessed due to the patient's neurological condition. (Carmen Chamberlain) Medications Current Medications Current Medications Medications (Trade) Dose Ordered Sig/Christopher Route PRN Reason Start Time Stop Time Status Last Admin Dose Admin Sodium Chloride (NS Flush) 2 ml UNSCH PRN IV FLUSH FLUSH AFTER USING IV ACCESS 08/30/17 16:15 Sodium Chloride (NS Flush) 2 ml BID IV FLUSH 08/30/17 21:00 10/22/17 08:26 Ondansetron HCl (Zofran Inj) 4 mg Q6H PRN IV PUSH NAUSEA OR VOMITING 08/30/17 16:15 Albuterol Sulfate (Albuterol Neb) 2.5 mg Q2HR NEB PRN INH SOB/WHEEZING 08/30/17 16:15 Miscellaneous Information 1 Q361D XX 08/30/17 16:15 Chlorhexidine Gluconate (Chlorhexidine 2% Cloth) 3 pack Taper DAILY@04 TOP 08/31/17 04:00 08/27/18 03:59 Chlorhexidine Gluconate (Chlorhexidine 2% Cloth) 3 pack UNSCH PRN TOP HYGIENIC CARE 08/30/17 16:15 Magnesium Hydroxide (Milk Of Magnesia Liq) 30 ml Q12H PRN PO Mild constipation 08/30/17 16:15 Sennosides (Senokot) 17.2 mg Q12H PRN PO Moderate constipation 08/30/17 16:15 Bisacodyl (Dulcolax Supp) 10 mg DAILY PRN RECTAL SEVERE CONSITIPATION 08/30/17 16:15 Lactulose (Lactulose Liq) 30 ml DAILY PRN PO SEVERE CONSITIPATION 08/30/17 16:15 Atorvastatin Calcium (Lipitor) 40 mg HS PO 08/30/17 21:00 09/01/17 21:22 Divalproex Sodium (Depakote Er) 1,500 mg HS PO 08/30/17 21:00 08/30/17 21:00 Doxepin HCl (SINEquan) 10 mg HS PO 08/30/17 21:00 09/01/17 21:21 Furosemide (Lasix) 40 mg DAILY PO 08/31/17 09:00 09/02/17 08:25 Lisinopril (Prinivil) 20 mg DAILY PO 08/31/17 09:00 09/02/17 08:34 Metoprolol Tartrate (Lopressor) 25 mg DAILY PO 08/31/17 09:00 09/02/17 08:34 Levetriacetam 500 mg/Sodium Chloride 105 ml @ 420 mls/hr Q12HR IV 08/30/17 21:00 09/02/17 08:27 Dextrose (D50w (Vial) Inj) 50 ml UNSCH PRN IV PUSH HYPOGLYCEMIA-SEE COMMENTS 08/30/17 16:15 Glucagon (Glucagon Inj) 1 mg UNSCH PRN OTHER HYPOGLYCEMIA-SEE COMMENTS 08/30/17 16:15 Insulin Human Regular (NovoLIN R SUPPLEMENTAL SCALE) 1 ACHS SLIDING SCALE SQ 08/30/17 17:00 09/01/17 21:51 Labetalol HCl (Trandate Inj) 10 mg Q1HR PRN IV PUSH SBP>150, DBP>90, HR>65 08/30/17 16:15 09/01/17 08:45 Hydralazine HCl (Apresoline Inj) 10 mg Q1HR PRN IV PUSH SBP>150, DBP>90 08/30/17 16:15 09/01/17 03:39 Nitroglycerin (Nitroglycerin 2% Oint) 2 inch Q6H PRN TOPICAL SBP>150, DBP>90 08/30/17 16:15 Calcium Gluconate (Calcium Gluconate Inj) 1 gm UNSCH PRN IV SEE LABEL COMMENTS 08/31/17 13:30 Acetaminophen/ Hydrocodone Bitart (Tsaile 10-325 Mg) 1 tab Q4H PRN PO PAIN SCALE 1 TO 5 08/31/17 13:30 Future Hold Acetaminophen/ Hydrocodone Bitart (Tsaile 10-325 Mg) 2 tab Q4H PRN PO PAIN SCALE 6 TO 10 08/31/17 13:30 Future Hold Morphine Sulfate (Morphine Inj) 2 mg Q2H PRN IV PUSH PAIN SCALE 1 TO 6 08/31/17 13:30 09/01/17 06:15 Morphine Sulfate (Morphine Inj) 4 mg Q2H PRN IV PUSH PAIN SCALE 7 TO 10 08/31/17 13:30 Cholecalciferol (Vitamin D3) 1,000 units DAILY PO 09/01/17 09:00 09/02/17 08:26 Tolterodine Tartrate (Detrol La) 2 mg DAILY PO 09/01/17 09:00 09/02/17 08:25 Patient Own Medication PT OWN MED: LINAGLIP... DAILY PO 09/01/17 09:00 Future Hold Mupirocin (Bactroban Nasal 2% Oint) 1 applic Taper BID EACH NARE 09/01/17 10:00 08/28/18 09:59 09/02/17 07:52 Chlorhexidine Gluconate (Peridex 0.12% Liq) 15 ml BID@08,20 MT 09/01/17 20:00 09/02/17 07:49 Propofol 100 ml @ 2.79 mls/hr TITRATE PRN IV SEDATION 09/01/17 09:45 09/02/17 07:09 Fentanyl Citrate 250 ml @ 5 mls/hr TITRATE PRN IV SEDATION 09/01/17 09:45 09/01/17 19:53 Nicardipine HCl 25 mg/Sodium Chloride 250 ml @ 50 mls/hr TITRATE PRN IV Blood pressure management 09/01/17 10:00 09/01/17 11:00 Sodium Chloride (NS Flush) DAILY IV FLUSH 09/01/17 10:30 09/02/17 08:26 Sodium Chloride (NS Flush) UNSCH PRN IV FLUSH SEE PROTOCOL 09/01/17 10:30 Artificial Tears (Tears Naturale Opth Soln) 1 drop Q8HR EACH EYE 09/01/17 14:00 09/02/17 06:00 Famotidine (Pepcid Inj) 20 mg Q12H IV PUSH 09/01/17 11:00 09/01/17 22:53 Isosorbide Dinitrate (Isordil) 10 mg Q8HR PO 09/01/17 14:00 09/02/17 06:29 Potassium Chloride 100 ml @ 50 mls/hr Q2H PRN IV For Potassium 2.8 - 3.2 mEq/L 09/02/17 06:30 Potassium Chloride 100 ml @ 50 mls/hr Q2H PRN IV For Potassium 2.8 - 3.2 mEq/L 09/02/17 06:30 Potassium Bicarb/ Potassium Chloride (K-Lyte Cl Eff) 50 meq UNSCH PRN PO For Potassium 3.3 - 3.5 mEq/L 09/02/17 06:30 Potassium Chloride 100 ml @ 25 mls/hr UNSCH PRN IV For Potassium 3.3 - 3.5 mEq/L 09/02/17 06:30 Potassium Chloride 100 ml @ 50 mls/hr Q2H PRN IV For Potassium 3.3 - 3.5 mEq/L 09/02/17 06:30 Magnesium Sulfate 4 gm/Sodium Chloride 100 ml @ 50 mls/hr UNSCH PRN IV For Magnesium 0.9 - 1.1 mg/dL 09/02/17 06:30 Magnesium Oxide (Mag-Ox) 800 mg UNSCH PRN PO For Magnesium 1.2 - 1.6 mg/dL 09/02/17 06:30 Magnesium Sulfate 2 gm/Sodium Chloride 100 ml @ 50 mls/hr UNSCH PRN IV For Magnesium 1.2 - 1.6 mg/dL 09/02/17 06:30 Potassium Phosphate (K-Phos) 2,000 mg Q4H PRN PO For Phosphorus < 2.5 mg/dL 09/02/17 06:30 Sodium Phosphate 30 mmol/Sodium Chloride 250 ml @ 42 mls/hr UNSCH PRN IV For Phosphorus < 2.5 mg/dL 09/02/17 06:30 Potassium Phosphate (K-Phos) 2,000 mg UNSCH PRN PO/TUBE SEE LABEL COMMENTS 09/02/17 06:30 Potassium Phosphate 30 mmol/ Sodium Chloride 260 ml @ 42 mls/hr UNSCH PRN IV SEE LABEL COMMENTS 09/02/17 06:30 09/02/17 08:28 Insulin Detemir (Levemir Inj) 10 units Q12HR SQ 09/02/17 09:00 09/02/17 08:27 Docusate Sodium (Colace Liq) 100 mg Q12HR PO 09/02/17 09:00 09/02/17 08:25 Sennosides (Senna Liq) 8.8 mg BID PO 09/02/17 09:00 09/02/17 08:26 Polyethylene Glycol (Miralax) 17 gm BID PO 09/02/17 09:00 09/02/17 08:26 Acetaminophen (Tylenol 650 Mg/ 20 ml Liq) 650 mg Q6H PRN PO fever 09/02/17 07:15 (Carmen Chamberlain) Medical Decision Making MDM Remarks 57 y/o female TBI following slip and fall on wet grass, she hit her face on concrete sidewalk, CT Brain on arrival with right subdural hematoma, diffuse SAH she underwent right side craniotomy for evacuation of subdural hematoma on 08/31 respiratory failure, reintubated 09/01/17 f/u CT Head 09/02 with improvement of right subdural hematoma, stable right temporal/parietal intraparenchymal hematoma, small right cerebellar contusion, and diffuse SAH, no new ICH EEG 09/01 neg for seizure (Carmen Chamberlain) Plan Plan Remarks cont critical care management, sedation and vent weaning as tolerated Protonix for stress ulcer prophylaxis nonchemical dvt prophylaxis in view of ICH serial neuro checks, and follow up exam (Carmen Chamberlani) Attending Statement The exam, history, and the medical decision-making described in the above note were completed with the assistance of the mid-level provider. I reviewed and agree with the findings presented. I attest that I had a [id number] encounter with the patient on the same day, and personally performed and documented my assessment and findings in the medical record. (Yannick Aiken MD) Carmen Chamberlain Sep 02, 2017 10:21 Yannick Aiken MD Sep 09, 2017 21:48
[2017-09-02] MEDS: FAMOTIDINE 20 MG/2 ML VIAL IV PUSH SCH ×2 (11:28→22:06)
[2017-09-02] MEDS: fentaNYL DRIP 250 ML IV PRN (11:28)
[2017-09-02] MEDS: 3% SALINE INJ 500 ML IV SCH (11:58)
[2017-09-02 17:25] LABS: POTASSIUM 5.1 MEQ/L (3.5-5.1)
[2017-09-02] MEDS: DIVALPROEX SODIUM E.R. 500 MG TAB PO SCH (21:00)
[2017-09-02] MEDS: ATORVASTATIN 40 MG TAB PO SCH (21:02)
[2017-09-02] MEDS: DOXEPIN HCL 10 MG CAP PO SCH (21:02)
[2017-09-02] MEDS: CHLORHEXIDINE GLUCONATE 2 % 1 PACK (2 CLOTHS) TOP SCH (21:04)
[2017-09-02] MEDS ORDERED: SODIUM CHLOR 0.9% 1000 ML INJ 1,000 ML IV ONE (22:00)
[2017-09-03] VITALS (19 sets, daily range): BP systolic 118–150; BP diastolic 63–79; PULSE 61–95; RESP 14–16; TEMP 97.6–100.5; O2SAT 100
[2017-09-03] MEDS: fentaNYL DRIP 250 ML IV PRN ×2 (01:13→15:00)
[2017-09-03] MEDS: PROPOFOL 1000 MG/100 ML INJ 100 ML IV PRN ×6 (01:13→23:34)
[2017-09-03] MEDS: ARTIFICIAL TEARS OPTH SOLN 15 ML BTL EACH EYE SCH ×3 (05:20→21:56)
[2017-09-03] MEDS: ISOSORBIDE DINITRATE 10 MG TAB PO SCH ×3 (05:20→21:56)
--- NOTE | 2017-09-03 05:41 | RADRPT ---
EXAM DATE/TIME: 09/03/2017 04:42 [facility] COMPARISON: CHEST SINGLE AP, September 01, 2017, 11:35. INDICATIONS : Short of breath. MEDICAL HISTORY : Hypertension. SURGICAL HISTORY : None. ENCOUNTER: Subsequent ACUITY: 4 - 6 days PAIN SCORE: 0/10 LOCATION: Bilateral chest FINDINGS: A single view of the chest demonstrates bibasilar densities. Endotracheal tube, nasogastric tube and left jugular central line in stable position. The cardiomediastinal contours are unremarkable. [place] us structures are intact. CONCLUSION: 1. Bibasilar atelectasis, slightly improved in the right lower lobe but slightly worsened left lower lobe. Fantasma Miller MD on September 03, 2017 at 5:39 Board Certified Radiologist. This report was verified electronically.
[2017-09-03 05:54] LABS: AUTOMATED NEUTROPHIL # 4.4 TH/MM3 (1.8-7.7); BASOPHIL % 0.3 % (0.0-2.0); EOSINOPHIL # 0.2 TH/MM3 (0-0.4); EOSINOPHIL % 2.5 % (0.0-4.0); HEMATOCRIT 25.1 % (35.0-46.0); HEMO FLAGS DIFF FINAL; LYMPH % 19.4 % (9.0-44.0); LYMPHOCYTE # 1.3 TH/MM3 (1.0-4.8); MEAN CORPUSCULAR HEMOGLOBIN 27.7 PG (27.0-34.0); MEAN CORPUSCULAR HGB CONC 32.6 % (32.0-36.0); MONO % 11.2 % (0.0-8.0); NEUT % 66.6 % (16.0-70.0); PLATELET COUNT 149 TH/MM3 (150-450); RED BLOOD COUNT 2.95 MIL/MM3 (4.00-5.30); WHITE BLOOD COUNT 6.6 TH/MM3 (4.0-11.0)
[2017-09-03 06:30] LABS: ALKALINE PHOSPHATASE 60 U/L (45-117); ALT (GPT) 15 U/L (10-53); ANION GAP 6 MEQ/L (5-15); AST (GOT) 28 U/L (15-37); BICARBONATE 22.3 MEQ/L (21.0-32.0); BLOOD UREA NITROGEN 9 MG/DL (7-18); CHLORIDE 124 MEQ/L (98-107); GLOMERULAR FILTRATION RATE 231 ML/MIN (>89); MAGNESIUM 1.9 MG/DL (1.5-2.5); POTASSIUM 3.5 MEQ/L (3.5-5.1); SODIUM (NA) 152 MEQ/L (136-145); TOTAL BILIRUBIN ADULT 0.3 MG/DL (0.2-1.0)
[2017-09-03] MEDS: CHLORHEXIDINE 0.12% (ORAL KIT) 15 ML CUP MT SCH ×2 (08:00→20:21)
[2017-09-03] MEDS ORDERED: MINERAL OIL EMULSION 55% PO ONE (08:00)
[2017-09-03] MEDS ORDERED: METHYLNALTREXONE BROMIDE 12 MG/0.6 ML VIAL SQ ONE (08:00)
[2017-09-03] MEDS: LACTULOSE SYRUP 20 GM/30 ML CUP PO SCH ×3 (08:00→20:16)
[2017-09-03] MEDS: SODIUM CHLORIDE 0.9% FLUSH 10 ML FLUSH IV FLUSH SCH ×3 (08:25→20:17)
[2017-09-03] MEDS: levETIRAcetam INJ 500 MG in SODIUM CHLORIDE 0.9% INJ 100 ML IV SCH ×2 (08:25→20:17)
[2017-09-03] MEDS: MUPIROCIN 2% OINT 1 APPLIC/GM SYR EACH NARE SCH ×2 (08:25→20:17)
[2017-09-03] MEDS: DOCUSATE SODIUM 100 MG/10 ML UDC PO SCH ×2 (08:25→20:17)
[2017-09-03] MEDS: FUROSEMIDE 40 MG TAB PO SCH (08:26)
[2017-09-03] MEDS: TOLTERODINE TARTRATE 2 MG CAP LA PO SCH (08:26)
[2017-09-03] MEDS: POLYETHYLENE GLYCOL 17 GM PKG PO SCH ×2 (08:27→20:17)
[2017-09-03] MEDS: METOPROLOL TARTRATE 25 MG TAB PO SCH (08:27)
[2017-09-03] MEDS: CHOLECALCIFEROL (VIT D3) 1000 UNIT TAB PO SCH (08:27)
[2017-09-03] MEDS: LISINOPRIL 20 MG TAB PO SCH (08:27)
[2017-09-03] MEDS: SENNOSIDES SYRUP 8.8 MG/5 ML CUP PO SCH ×2 (08:27→20:17)
[2017-09-03] MEDS: RESP: ALBUTEROL 2.5 MG/IPRATROPIUM 0.5 MG NEB (SCH) NEB ×3 (08:40→21:32)
--- NOTE | 2017-09-03 08:48 | HHI.CCPN ---
Subjective Remarks/Hospital Course 57-year-old AA female . Date of admission 08/30/2017. Past medical history includes schizoaffective/bipolar, depression, seizure disorder, hypertension, dyslipidemia, diabetes and allergic rhinitis. She is not on any blood thinners or aspirin. This patient was walking from [place] in approximately 6 AM this morning when she suffered a fall and landed on the right side of her face.. She states she slipped in the wet grass hitting her face on the concrete. No loss of consciousness. Not seizure activity noted. Not tongue biting. No incontinence of stool or urine. 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 Patient states that she's been having a headache and right-sided facial pain since. 08/30 CT of the brain showed a right frontotemporal subdural hematoma 1.6 cm with a 3 mm right to left shift. Maxillofacial CT revealed a nondisplaced right nasal fracture. CT spine negative. CBC showed normocytic anemia. BMP is pending. Elevated PTT coags at 33. Patient was loaded with 500 mg levetiracetam, given as needed for elevated blood pressure stabilized in the ED. Neurosurgical consultation was requested with Dr. Aiken. 08/31: Afebrile. CT brain revealed increased diameter right-sided subdural hematoma up to 1.9 cm. Shift is 1 mm right to left. Positive headache. No seizure activity. No real focal neurological deficits. 09/01: Patient subjective a weak left upper and lower extremity greater than right. Mumbling words. Stat CT brain revealed 2.6 cm image right intraparenchymal hemorrhage on the right temporal parietal region, 0.9 cm right cerebellar hemorrhage and bilateral subarachnoid hemorrhage convex's. Notified Dr. Aiken. Patient was intubated for airway protection and central line placed for hypertonic saline 09/02: Tmax 99.9. Improved subarachnoid hemorrhage. Stable right intraparenchymal hemorrhages. Potassium and phosphorus been replaced. No bowel movement. Subjective 09/03: Currently afebrile. Remains on propofol and fentanyl drips for sedation. Tolerating tube feeds at goal. Arousable with open eyes but not falling commands currently. Objective Vital Signs Date Time Temp Pulse Resp B/P (MAP) Pulse Ox O2 Delivery O2 Flow Rate FiO2 09/03/17 06:00 61 09/03/17 04:19 100 40 09/03/17 04:00 97.6 14 129/69 (89) 118/79 (92) 09/02/17 19:00 Mechanical Ventilator 09/01/17 07:00 3.00 Intake and Output 09/03/17 09/03/17 09/04/17 08:00 16:00 00:00 Intake Total 600 ml Output Total 455 ml Balance 145 ml Result Diagram: 09/03/17 0530 09/03/17 0530 Imaging Last Impressions Chest X-Ray 09/03/17599 Signed Impressions: Service Date/Time: Sunday, September 03, 2017 04:42 - CONCLUSION: 1. Bibasilar atelectasis, slightly improved in the right lower lobe but slightly worsened left lower lobe. Fantasma Miller MD Head CT 09/02/17599 Signed Impressions: Service Date/Time: Saturday, September 02, 2017 04:41 - CONCLUSION: 1. Mild interval improvement in subarachnoid hemorrhage over the parietal convexities. 2. Stable intraparenchymal hemorrhage in the right parietal lobe and right cerebellar hemisphere. 3. The subdural drainage catheter remains in place with no residual subdural hematoma. 4. No new hemorrhage or mass effect. Tyree Wise MD Abdomen X-Ray 09/01/17 0000 Signed Impressions: Service Date/Time: Friday, September 01, 2017 18:29 - CONCLUSION: Nasogastric tube coiled in the stomach with the tip projecting towards the GE junction. Migue Cuenca Jr., MD Maxillofacial CT 08/30/17 0000 Signed Impressions: Service Date/Time: August 15:13 - CONCLUSION: 1. There is a minimally depressed right nasal bone fracture with adjacent soft tissue swelling. No other fracture is visualized. 2. Please refer to head CT report for description of the right subdural hematoma. Nacho Buckley MD Lumbar Spine CT 08/30/17 0000 Signed Impressions: Service Date/Time: August 17:59 - CONCLUSION: Negative examination. Alec Latham MD Cervical Spine CT 08/30/17 0000 Signed Impressions: Service Date/Time: August 15:12 - CONCLUSION: 1. No acute fracture or subluxation. Skinny Muñiz MD Objective Remarks GENERAL: 57-year-old AA female, resting in bed orotracheally intubated SKIN: Warm and dry. Abrasions to the right cheek and chin with evolving ecchymoses HEAD: Status post right craniotomy with subdural, scalp drain in place EYES: Pupils equal and round about 3 mm bilaterally and reactive. Right eyelid is somewhat swollen protuberant. No scleral icterus. No injection or drainage. ENT: No nasal bleeding or discharge. Mucous membranes pink and moist. NECK: Trachea midline. No JVD. CARDIOVASCULAR: Tachycardia, RR. S1, S2. No S4. Without murmur RESPIRATORY: Clear to auscultation. Breath sounds equal bilaterally. GASTROINTESTINAL: Abdomen soft, non-tender, nondistended. Bowel sounds are sluggish but appreciated MUSCULOSKELETAL: Extremities without significant peripheral edema. No obvious deformities. NEUROLOGICAL: Currently sedated on propofol and fentanyl drips. Eyes open. Withdraws to pain bilateral upper and lower extremities. Not following commands Urinary Catheter: Yes Assessment to: Continue Porter insert reason: Prolonged Immobilization Vascular Central Line Catheter: Yes Assessment to: Continue Date of Insertion: Sep 01, 2017 Line: Central Venous Catheter Side: Left Location: Internal, Jugular A/P Assessment and Plan Neuro/Psych: Postop day 3 right craniotomy with evacuation of subdural hematoma 2.6 cm right parietal/temporal intracranial hemorrhage, 0.9 cm right subdural hemorrhage and bilateral subarachnoid hemorrhage Right subdural hematoma - 1.6 cm fronto temporal with a 3 mm right to left shift Right closed nondisplaced nasal fracture Schizoaffective disorder Bipolar disorder Depression Seizure disorder NOS Propofol drip at 40 mcg/kg per minute/fentanyl drips at 150 g an hour for sedation/analgesia while intubated Goal of RASS -[address] brain 08/30 revealed a right frontal temporal subdural hematoma 1.6 cm thickness with a 3 mm right to left shift. Nondisplaced right nasal bone fracture. CT brain 08/31 revealed 2.6 cm right parietal intracranial hemorrhage, 0.9 cm right subdural hemorrhage and bilateral subarachnoid hemorrhage CT brain 09/01 revealed stable intraparenchymal hemorrhage improving subarachnoid hemorrhage at the convex EEG 08/31 revealed generalized slowing/encephalopathy. Disruption right side secondary to intraparenchymal hemorrhage. Levetiracetam 500 mg IV twice a day for seizure prophylaxis 7 days Goal keep systolic blood pressure less than 140. Neurochecks Head of bed at 30 KRISS 20/120cc Evaluated by Dr. Aiken/neurosurgery Continue divalproex 1500 mg a night. Repeat level in a.m. 3. See 97 Currently on 3% saline goal 150-155 at 10 cc an hour Continue doxepin 10 mg by mouth daily Holding loratadine 10 mg by mouth daily CV: Hypertension Dyslipidemia Continue metoprolol 25 mg daily for hypertension. Continue Prinivil 20 mg by mouth daily. Continue isosorbide mononitrate 30 mg by mouth daily but switch to isosorbide dinitrate 10 mg 3 times a day As needed labetalol, hydralazine, Nitropaste and nicardipine drip to keep systolic blood pressure less than 140 Continue atorvastatin 40 mg by mouth daily for dyslipidemia Resp: PRVC 16/500/40 Ventilator bundle Albuterol/after aerosols every 6 hours with albuterol aerosols every 2 hours prn dyspnea Spontaneous breathing trials daily Chest x-ray revealed bilateral lower lobe atelectasis left greater than right. GI: Continue tube feeding with vital 1.5 goal 50 cc an hour Famotidine for GI prophylaxis Docusate sodium/senna and polyethylene glycol twice a day for bowel regimen. Add lactulose and mineral oil 1 today and a one-time dose of 12 mg subcutaneous methylnaltrexone : Incontinence Porter catheter if indicated for accurate I's and O's in a critically ill patient Holding Tolterodine 2 mg by mouth daily. Resume when clinically indicated Endo: Diabetes History of hypothyroidism/thyroid nodules Holding metformin 1000 mg daily and Linagliptin 5 mg daily for diabetes. Sliding-scale insulin with Accu-Cheks to maintain euglycemia detemir 10 units twice a day Renal: History of renal cell carcinoma status post right nephrectomy Patient is currently on normal saline at 84 cc an hour Monitor urine output Accurate I's and O's Follow-up ER BMP not completed Heme: Normocytic anemia Elevated PTT Thrombocytopenia Monitor CBC daily. Follow trends Does not meet transfusion thresholds at this time ID: Monitor for infection FEN: Hypophosphatemia Hypokalemia Replace electrolytes as clinically indicated per ICU electrolyte protocol. Recheck potassium and phosphorus at 1500 Holding cholecalciferol 1000 U daily. Resume when clinically indicated MSK: Osteoarthritis Physical therapy evaluate and treat Access -Left IJ CVL day #3 Prophylaxis - GI famotidine - DVT- SCD/holding pharmacological prophylaxis in light of subdural hematoma Critical care time 35 minutes Calvin Rodas MD Sep 03, 2017 08:48
[2017-09-03] MEDS: INSULIN DETEMIR 100 UNITS/ML VIAL SQ SCH ×2 (09:00→21:00)
[2017-09-03] MEDS ORDERED: MAGNESIUM SULFATE 1 GM PREMIX 100 ML IV ONE (09:30)
[2017-09-03] MEDS ORDERED: POTASSIUM PHOSPHATE INJ 30 MMOL in SODIUM CHLOR 0.9% 250 ML INJ 250 ML IV ONE (10:00)
--- NOTE | 2017-09-03 10:00 | HHI.NSPN ---
(Carmen Chamberlain) Note Status Status: Progress Note (Carmen Chamberlain) Interval History Interval History This is a 57-year-old female who apparently is status post slip and fall around 6 AM this morning. She states she was on her way to [facility] she had some eggs when she slipped in the wet grass hitting her face on the concrete. No loss of consciousness. Not seizure activity noted. Not tongue biting. No incontinence of stool or urine. 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 Patient states that she' s been having a headache and right-sided facial pain since. She denies any chest pain, shortness of breath, change in vision, numbness or tingling anywhere , neck pain, back pain, loss or change in bowel or bladder, or being on any blood thinners. She is moving where both upper and lower extremities without any focal deficit. CT of the brain showed a right sided accurate subdural hematoma causing mass effect and midline shift. The subdural was hematoma 1.6 cm thick with a 3 mm right to left shift. Maxillofacial CT revealed a nondisplaced right nasal fracture. CT spine negative. Neurosurgical consultation was requested 09/01: Letahrgic today. Open eyes follows commands withn all [address] brain showed new frontal and post fossa bleed 09/02: remains intubated, off sedation she slightly opens eyes and moves all four extremities. EEG yesterday neg for seizures. 09/03: intubated, again off sedation reports to open her eyes and moves x 4, but not following commands (Carmen Chamberlain) Labs, Micro, & Vital Signs Results Date Time Temp Pulse Resp B/P (MAP) Pulse Ox O2 Delivery O2 Flow Rate FiO2 09/03/17 08:50 100 40 09/03/17 08:41 100 40 09/03/17 06:00 61 09/03/17 04:19 100 40 09/03/17 04:00 66 09/03/17 04:00 40 09/03/17 04:00 97.6 66 14 129/69 (89) 100 118/79 (92) 09/03/17 02:00 61 09/03/17 00:43 100 40 09/03/17 00:00 40 09/03/17 00:00 97.7 84 14 119/69 (86) 100 142/64 (90) 09/03/17 00:00 84 09/02/17 22:27 100 40 09/02/17 22:00 74 09/02/17 20:00 40 09/02/17 20:00 62 09/02/17 20:00 97.6 61 14 110/68 (82) 100 117/62 (80) 09/02/17 19:00 100 Mechanical Ventilator 40 09/02/17 18:00 70 09/02/17 16:16 100 40 09/02/17 16:15 100 40 09/02/17 16:00 97.8 68 14 100/52 (68) 100 09/02/17 16:00 40 09/02/17 16:00 68 09/02/17 14:00 68 09/02/17 12:00 71 09/02/17 12:00 98.8 68 14 118/63 (81) 100 09/02/17 12:00 40 Constitutional Vital Signs Date Time Temp Pulse Resp B/P (MAP) Pulse Ox O2 Delivery O2 Flow Rate FiO2 09/03/17 08:50 100 40 09/03/17 08:41 100 40 09/03/17 06:00 61 09/03/17 04:19 100 40 09/03/17 04:00 66 09/03/17 04:00 40 09/03/17 04:00 97.6 66 14 129/69 (89) 100 118/79 (92) 09/03/17 02:00 61 09/03/17 00:43 100 40 09/03/17 00:00 40 09/03/17 00:00 97.7 84 14 119/69 (86) 100 142/64 (90) 09/03/17 00:00 84 09/02/17 22:27 100 40 09/02/17 22:00 74 09/02/17 20:00 40 09/02/17 20:00 62 09/02/17 20:00 97.6 61 14 110/68 (82) 100 117/62 (80) 09/02/17 19:00 100 Mechanical Ventilator 40 09/02/17 18:00 70 09/02/17 16:16 100 40 09/02/17 16:15 100 40 09/02/17 16:00 97.8 68 14 100/52 (68) 100 09/02/17 16:00 40 09/02/17 16:00 68 09/02/17 14:00 68 09/02/17 12:00 71 09/02/17 12:00 98.8 68 14 118/63 (81) 100 09/02/17 12:00 40 (Carmen Chamberlain) Review of Systems ROS Limitations: Clinical Condition, Intubated (Carmen Chamberlain) Physical Exam Ms. Haider is intubated and sedated. Surgical wound is clean and dry. KRISS drain 1 with minimal to moderate blood tinged CSF output. KRISS drain 2 with minimal drainage. Cranial Nerves: Pupils 3-4 mm round, reactive to light. Face musculature appeared symmetrical at rest. Right periorbital swelling and conjunctival hemorrhage improving Cervical Spine: soft, supple, without nuchal rigidity. Motor: withdrawing legs to local pain stimuli, slight movement in right upper seen Reflexes: Deep tendon reflexes are trace throughout. Plantars neutral bilaterally. Sensory: On examination there is response to painful stimuli, localizing with both upper and lower extremities. Cerebellar: Examination cannot be adequately assessed due to the patient's neurological condition. (Carmen Chamberlain) Ms. Haider is intubated and sedated. Surgical wound is clean and dry. KRISS drain 1 with minimal to moderate blood tinged CSF output. KRISS drain 2 with minimal drainage. Cranial Nerves: Pupils 3-4 mm round, reactive to light. Face musculature appeared symmetrical at rest. Right periorbital swelling and conjunctival hemorrhage improving Cervical Spine: soft, supple, without nuchal rigidity. Motor: withdrawing legs to local pain stimuli, slight movement in right upper seen Reflexes: Deep tendon reflexes are trace throughout. Plantars neutral bilaterally. Sensory: On examination there is response to painful stimuli, localizing with both upper and lower extremities. Cerebellar: Examination cannot be adequately assessed due to the patient's neurological condition (Yannick Aiken MD) Medications Current Medications Current Medications Medications (Trade) Dose Ordered Sig/Christopher Route PRN Reason Start Time Stop Time Status Last Admin Dose Admin Sodium Chloride (NS Flush) 2 ml UNSCH PRN IV FLUSH FLUSH AFTER USING IV ACCESS 08/30/17 16:15 Sodium Chloride (NS Flush) 2 ml BID IV FLUSH 08/30/17 21:00 09/03/17 08:25 Ondansetron HCl (Zofran Inj) 4 mg Q6H PRN IV PUSH NAUSEA OR VOMITING 08/30/17 16:15 Albuterol Sulfate (Albuterol Neb) 2.5 mg Q2HR NEB PRN INH SOB/WHEEZING 08/30/17 16:15 Miscellaneous Information 1 [id number] XX 08/30/17 16:15 Chlorhexidine Gluconate (Chlorhexidine 2% Cloth) 3 pack Taper DAILY@04 TOP 08/31/17 04:00 08/27/18 03:59 Chlorhexidine Gluconate (Chlorhexidine 2% Cloth) 3 pack UNSCH PRN TOP HYGIENIC CARE 08/30/17 16:15 Magnesium Hydroxide (Milk Of Magnana Liq) 30 ml Q12H PRN PO Mild constipation 08/30/17 16:15 Sennosides (Senokot) 17.2 mg Q12H PRN PO Moderate constipation 08/30/17 16:15 Bisacodyl (Dulcolax Supp) 10 mg DAILY PRN RECTAL SEVERE CONSITIPATION 08/30/17 16:15 Atorvastatin Calcium (Lipitor) 40 mg HS PO 08/30/17 21:00 09/02/17 21:02 Divalproex Sodium (Depakote Er) 1,500 mg HS PO 08/30/17 21:00 08/30/17 21:00 Doxepin HCl (SINEquan) 10 mg HS PO 08/30/17 21:00 09/02/17 21:02 Furosemide (Lasix) 40 mg DAILY PO 08/31/17 09:00 09/03/17 08:26 Lisinopril (Prinivil) 20 mg DAILY PO 08/31/17 09:00 09/03/17 08:27 Metoprolol Tartrate (Lopressor) 25 mg DAILY PO 08/31/17 09:00 09/03/17 08:27 Levetriacetam 500 mg/Sodium Chloride 105 ml @ 420 mls/hr Q12HR IV 08/30/17 21:00 09/03/17 08:25 Dextrose (D50w (Vial) Inj) 50 ml UNSCH PRN IV PUSH HYPOGLYCEMIA-SEE COMMENTS 08/30/17 16:15 Glucagon (Glucagon Inj) 1 mg UNSCH PRN OTHER HYPOGLYCEMIA-SEE COMMENTS 08/30/17 16:15 Labetalol HCl (Trandate Inj) 10 mg Q1HR PRN IV PUSH SBP>150, DBP>90, HR>65 08/30/17 16:15 09/01/17 08:45 Hydralazine HCl (Apresoline Inj) 10 mg Q1HR PRN IV PUSH SBP>150, DBP>90 08/30/17 16:15 09/01/17 03:39 Nitroglycerin (Nitroglycerin 2% Oint) 2 inch Q6H PRN TOPICAL SBP>150, DBP>90 08/30/17 16:15 Calcium Gluconate (Calcium Gluconate Inj) 1 gm UNSCH PRN IV SEE LABEL COMMENTS 08/31/17 13:30 Acetaminophen/ Hydrocodone Bitart ([place] 10-325 Mg) 1 tab Q4H PRN PO PAIN SCALE 1 TO 5 08/31/17 13:30 Future Hold Acetaminophen/ Hydrocodone Bitart ([place] 10-325 Mg) 2 tab Q4H PRN PO PAIN SCALE 6 TO 10 08/31/17 13:30 Future Hold Morphine Sulfate (Morphine Inj) 2 mg Q2H PRN IV PUSH PAIN SCALE 1 TO 6 08/31/17 13:30 09/01/17 06:15 Morphine Sulfate (Morphine Inj) 4 mg Q2H PRN IV PUSH PAIN SCALE 7 TO 10 08/31/17 13:30 Cholecalciferol (Vitamin D3) 1,000 units DAILY PO 09/01/17 09:00 09/03/17 08:27 Tolterodine Tartrate (Detrol La) 2 mg DAILY PO 09/01/17 09:00 09/02/17 08:25 Patient Own Medication PT OWN MED: LINAGLIP... DAILY PO 09/01/17 09:00 Future Hold Mupirocin (Bactroban Nasal 2% Oint) 1 applic Taper BID EACH NARE 09/01/17 10:00 08/28/18 09:59 09/03/17 08:25 Chlorhexidine Gluconate (Peridex 0.12% Liq) 15 ml BID@08,20 MT 09/01/17 20:00 09/03/17 08:00 Propofol 100 ml @ 2.79 mls/hr TITRATE PRN IV SEDATION 09/01/17 09:45 09/03/17 05:42 Fentanyl Citrate 250 ml @ 5 mls/hr TITRATE PRN IV SEDATION 09/01/17 09:45 09/03/17 01:13 Nicardipine HCl 25 mg/Sodium Chloride 250 ml @ 50 mls/hr TITRATE PRN IV Blood pressure management 09/01/17 10:00 09/01/17 11:00 Sodium Chloride (NS Flush) DAILY IV FLUSH 09/01/17 10:30 09/03/17 08:25 Sodium Chloride (NS Flush) UNSCH PRN IV FLUSH SEE PROTOCOL 09/01/17 10:30 Artificial Tears (Tears Naturale Opth Soln) 1 drop Q8HR EACH EYE 09/01/17 14:00 09/03/17 05:20 Famotidine (Pepcid Inj) 20 mg Q12H IV PUSH 09/01/17 11:00 09/02/17 22:06 Isosorbide Dinitrate (Isordil) 10 mg Q8HR PO 09/01/17 14:00 09/03/17 05:20 Potassium Chloride 100 ml @ 50 mls/hr Q2H PRN IV For Potassium 2.8 - 3.2 mEq/L 09/02/17 06:30 Potassium Chloride 100 ml @ 50 mls/hr Q2H PRN IV For Potassium 2.8 - 3.2 mEq/L 09/02/17 06:30 Potassium Bicarb/ Potassium Chloride (K-Lyte Cl Eff) 50 meq UNSCH PRN PO For Potassium 3.3 - 3.5 mEq/L 09/02/17 06:30 Potassium Chloride 100 ml @ 25 mls/hr UNSCH PRN IV For Potassium 3.3 - 3.5 mEq/L 09/02/17 06:30 Potassium Chloride 100 ml @ 50 mls/hr Q2H PRN IV For Potassium 3.3 - 3.5 mEq/L 09/02/17 06:30 Magnesium Sulfate 4 gm/Sodium Chloride 100 ml @ 50 mls/hr UNSCH PRN IV For Magnesium 0.9 - 1.1 mg/dL 09/02/17 06:30 Magnesium Oxide (Mag-Ox) 800 mg UNSCH PRN PO For Magnesium 1.2 - 1.6 mg/dL 09/02/17 06:30 Magnesium Sulfate 2 gm/Sodium Chloride 100 ml @ 50 mls/hr UNSCH PRN IV For Magnesium 1.2 - 1.6 mg/dL 09/02/17 06:30 Potassium Phosphate (K-Phos) 2,000 mg Q4H PRN PO For Phosphorus < 2.5 mg/dL 09/02/17 06:30 Sodium Phosphate 30 mmol/Sodium Chloride 250 ml @ 42 mls/hr UNSCH PRN IV For Phosphorus < 2.5 mg/dL 09/02/17 06:30 Potassium Phosphate (K-Phos) 2,000 mg UNSCH PRN PO/TUBE SEE LABEL COMMENTS 09/02/17 06:30 Potassium Phosphate 30 mmol/ Sodium Chloride 260 ml @ 42 mls/hr UNSCH PRN IV SEE LABEL COMMENTS 09/02/17 06:30 09/02/17 08:28 Insulin Detemir (Levemir Inj) 10 units Q12HR SQ 09/02/17 09:00 09/03/17 09:00 Docusate Sodium (Colace Liq) 100 mg Q12HR PO 09/02/17 09:00 09/03/17 08:25 Sennosides (Senna Liq) 8.8 mg BID PO 09/02/17 09:00 09/03/17 08:27 Polyethylene Glycol (Miralax) 17 gm BID PO 09/02/17 09:00 09/03/17 08:27 Acetaminophen (Tylenol 650 Mg/ 20 ml Liq) 650 mg Q6H PRN PO fever 09/02/17 07:15 Sodium Chloride 500 ml @ 10 mls/hr CONTINUOUS IV 09/02/17 11:45 09/02/17 11:58 Lactulose (Lactulose Liq) 30 ml BID PO 09/03/17 08:00 09/03/17 09:00 Potassium Phosphate 30 mmol/ Sodium Chloride 260 ml @ 43.333 mls/ hr ONCE ONCE IV 09/03/17 10:00 09/03/17 15:59 Insulin Human Regular (NovoLIN R SUPPLEMENTAL SCALE) 1 Q6HR SQ 09/03/17 12:00 Albuterol/ Ipratropium (Duoneb Neb) 1 ampule Q6HR NEB NEB 09/03/17 10:00 09/03/17 08:40 Magnesium Sulfate/ Dextrose 100 ml @ 100 mls/hr ONCE ONCE IV 09/03/17 09:30 09/03/17 10:29 (Carmen Chamberlain) Medical Decision Making MDM Remarks 57 y/o female TBI following slip and fall on wet grass, she hit her face on concrete sidewalk, CT Brain on arrival with right subdural hematoma, diffuse SAH she underwent right side craniotomy for evacuation of subdural hematoma on 08/31 respiratory failure, reintubated 09/01/17 f/u CT Head 09/02 with improvement of right subdural hematoma, stable right temporal/parietal intraparenchymal hematoma, small right cerebellar contusion, and diffuse SAH, no new ICH EEG 09/01 neg for seizure (Carmen Chamberlain) Plan Plan Remarks cont critical care management, cont sedation and vent weaning as tolerated Protonix for stress ulcer prophylaxis nonchemical dvt prophylaxis in view of ICH KRISS drains x 2 dc'ed (Carmen Chamberlain) Attending Statement Continue neuro checks. Pulmonary.. Continue aggressive pulmonary toilette, nasotracheal suction, and breathing treatments with nebulizers. Renal. monitor closely urine output, BUN and creatinine Endocrine. Monitor serial Acu checks and SSI as needed in detail ID monitor for signs of infection Protonix for stress ulcer prophylaxis Fermin hose and SCD's for DVT prophylaxis. The exam, history, and the medical decision-making described in the above note were completed with the assistance of the mid-level provider. I reviewed and agree with the findings presented. I attest that I had a [id number] encounter with the patient on the same day, and personally performed and documented my assessment and findings in the medical record. (Yannick Aiken MD) Carmen Chamberlain Sep 03, 2017 10:00 Yaninck Aiken MD Sep 09, 2017 21:54
--- NOTE | 2017-09-03 10:24 | EKG ---
Date Performed: 09/02/2017 Time Performed: 15:31:56 PTAGE: 57 years EKG: Sinus rhythm . Inferior T wave changes are nonspecific Borderline ECG Compared to prior tracing no significant jordana nge PREVIOUS TRACING : 08/30/2017 17.18 DOCTOR: Tab Farris Interpretating Date/Time 09/03/2017 10:23:32
[2017-09-03] MEDS: FAMOTIDINE 20 MG/2 ML VIAL IV PUSH SCH ×2 (11:00→21:57)
[2017-09-03] MEDS: INSULIN NovoLIN REGULAR SUPPLEMENTAL SCALE SQ SCH ×3 (11:38→23:45)
[2017-09-03] MEDS: LABETALOL HCL 100 MG/20 ML VIAL IV PUSH PRN ×2 (17:11→19:51)
[2017-09-03] MEDS: 3% SALINE INJ 500 ML IV SCH (17:47)
[2017-09-03] MEDS: ACETAMINOPHEN 650 MG/20.3 ML UDC PO PRN (20:16)
[2017-09-03] MEDS: ATORVASTATIN 40 MG TAB PO SCH (20:16)
[2017-09-03] MEDS: DOXEPIN HCL 10 MG CAP PO SCH (20:16)
[2017-09-03] MEDS: DIVALPROEX SODIUM E.R. 500 MG TAB PO SCH (21:00)
[2017-09-03] MEDS: hydrALAZINE HCL 20 MG/ML VIAL IV PUSH PRN (23:45)
[2017-09-04] VITALS (19 sets, daily range): BP systolic 136–190; BP diastolic 61–83; PULSE 77–104; RESP 14–24; TEMP 98.2–100.7; O2SAT 98–100
[2017-09-04 01:37] LABS: BLOOD GAS BASE EXCESS -2.5 mmol/L (-2-2); BLOOD GAS CARBOXYHEMOGLOBIN 0.8 % (0-4); BLOOD GAS HCO3 22 mmol/L (22-26); BLOOD GAS METHEMOGLOBIN 1.1 % (0-2); BLOOD GAS O2 HGB SATURATION 97 % (90-100); BLOOD GAS OXYGEN CONTENT 13.9 Vol % (12.0-20.0); BLOOD GAS PCO2 42 mmHg (38-42); BLOOD GAS PO2 155 mmHg (61-120); BLOOD GAS TOTAL HGB 9.9 G/DL (12.0-16.0); CRITICAL VALUE NO; DRAW SITE ART LINE; FIO2 40 %; OXYGEN DEVICE VENTILATOR; TEMP CORR TO 98.6
[2017-09-04 01:38] LABS: STAT NO
[2017-09-04] MEDS: PROPOFOL 1000 MG/100 ML INJ 100 ML IV PRN ×5 (03:19→23:04)
[2017-09-04] MEDS: LABETALOL HCL 100 MG/20 ML VIAL IV PUSH PRN ×4 (03:30→20:27)
[2017-09-04] MEDS: RESP: ALBUTEROL 2.5 MG/IPRATROPIUM 0.5 MG NEB (SCH) NEB ×4 (03:46→20:36)
[2017-09-04] MEDS: CHLORHEXIDINE GLUCONATE 2 % 1 PACK (2 CLOTHS) TOP SCH (04:00)
[2017-09-04] MEDS: niCARdipine INJ 25 MG in SODIUM CHLOR 0.9% 250 ML INJ 240 ML IV PRN ×3 (04:08→23:05)
[2017-09-04] MEDS: ISOSORBIDE DINITRATE 10 MG TAB PO SCH ×3 (05:02→23:09)
[2017-09-04] MEDS: fentaNYL DRIP 250 ML IV PRN (05:02)
[2017-09-04] MEDS: ARTIFICIAL TEARS OPTH SOLN 15 ML BTL EACH EYE SCH ×3 (05:03→23:10)
[2017-09-04 05:15] LABS: AUTOMATED NEUTROPHIL # 5.5 TH/MM3 (1.8-7.7); BASOPHIL % 0.3 % (0.0-2.0); EOSINOPHIL # 0.1 TH/MM3 (0-0.4); EOSINOPHIL % 1.8 % (0.0-4.0); HEMATOCRIT 29.6 % (35.0-46.0); HEMO FLAGS DIFF FINAL; LYMPH % 15.5 % (9.0-44.0); LYMPHOCYTE # 1.3 TH/MM3 (1.0-4.8); MEAN CELL VOLUME 85.5 FL (80.0-100.0); MEAN CORPUSCULAR HEMOGLOBIN 27.7 PG (27.0-34.0); MEAN CORPUSCULAR HGB CONC 32.3 % (32.0-36.0); NEUT % 67.4 % (16.0-70.0); PLATELET COUNT 193 TH/MM3 (150-450); RED BLOOD COUNT 3.46 MIL/MM3 (4.00-5.30); RED CELL DISTRIBUTION WIDTH 14.8 % (11.6-17.2); WHITE BLOOD COUNT 8.1 TH/MM3 (4.0-11.0)
[2017-09-04 05:38] LABS: ANION GAP 7 MEQ/L (5-15); AST (GOT) 31 U/L (15-37); BICARBONATE 23.2 MEQ/L (21.0-32.0); BLOOD UREA NITROGEN 6 MG/DL (7-18); CHLORIDE 122 MEQ/L (98-107); GLOMERULAR FILTRATION RATE 150 ML/MIN (>89); POTASSIUM 3.6 MEQ/L (3.5-5.1); SODIUM (NA) 152 MEQ/L (136-145)
[2017-09-04 05:45] LABS: ALKALINE PHOSPHATASE 90 U/L (45-117); ALT (GPT) 26 U/L (10-53); TOTAL BILIRUBIN ADULT 0.4 MG/DL (0.2-1.0)
[2017-09-04] MEDS: INSULIN NovoLIN REGULAR SUPPLEMENTAL SCALE SQ SCH ×3 (05:48→18:00)
[2017-09-04] MEDS: CHLORHEXIDINE 0.12% (ORAL KIT) 15 ML CUP MT SCH ×2 (08:00→20:17)
[2017-09-04] MEDS: DOCUSATE SODIUM 100 MG/10 ML UDC PO SCH ×2 (08:50→20:26)
[2017-09-04] MEDS: METOPROLOL TARTRATE 25 MG TAB PO SCH (08:50)
[2017-09-04] MEDS: TOLTERODINE TARTRATE 2 MG CAP LA PO SCH (08:50)
[2017-09-04] MEDS: FUROSEMIDE 40 MG TAB PO SCH (08:51)
[2017-09-04] MEDS: LISINOPRIL 20 MG TAB PO SCH (08:51)
[2017-09-04] MEDS: CHOLECALCIFEROL (VIT D3) 1000 UNIT TAB PO SCH (08:52)
[2017-09-04] MEDS: SENNOSIDES SYRUP 8.8 MG/5 ML CUP PO SCH ×2 (08:52→20:26)
[2017-09-04] MEDS: INSULIN DETEMIR 100 UNITS/ML VIAL SQ SCH ×2 (08:52→20:26)
[2017-09-04] MEDS: LACTULOSE SYRUP 20 GM/30 ML CUP PO SCH ×2 (08:52→20:26)
[2017-09-04] MEDS: levETIRAcetam INJ 500 MG in SODIUM CHLORIDE 0.9% INJ 100 ML IV SCH ×2 (08:53→20:26)
[2017-09-04] MEDS: SODIUM CHLORIDE 0.9% FLUSH 10 ML FLUSH IV FLUSH SCH ×3 (09:00→20:27)
[2017-09-04] MEDS: MUPIROCIN 2% OINT 1 APPLIC/GM SYR EACH NARE SCH ×2 (09:00→20:27)
[2017-09-04] MEDS: POLYETHYLENE GLYCOL 17 GM PKG PO SCH ×2 (09:00→20:27)
[2017-09-04] MEDS: FAMOTIDINE 20 MG/2 ML VIAL IV PUSH SCH ×2 (11:00→23:04)
--- NOTE | 2017-09-04 11:04 | HHI.CCPN ---
Subjective Remarks/Hospital Course 57-year-old AA female . Date of admission 08/30/2017. Past medical history includes schizoaffective/bipolar, depression, seizure disorder, hypertension, dyslipidemia, diabetes and allergic rhinitis. She is not on any blood thinners or aspirin. This patient was walking from [facility] in approximately 6 AM this morning when she suffered a fall and landed on the right side of her face.. She states she slipped in the wet grass hitting her face on the concrete. No loss of consciousness. Not seizure activity noted. Not tongue biting. No incontinence of stool or urine. 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 Patient states that she's been having a headache and right-sided facial pain since. 08/30 CT of the brain showed a right frontotemporal subdural hematoma 1.6 cm with a 3 mm right to left shift. Maxillofacial CT revealed a nondisplaced right nasal fracture. CT spine negative. CBC showed normocytic anemia. BMP is pending. Elevated PTT coags at 33. Patient was loaded with 500 mg levetiracetam, given as needed for elevated blood pressure stabilized in the ED. Neurosurgical consultation was requested with Dr. Aiken. 08/31: Afebrile. CT brain revealed increased diameter right-sided subdural hematoma up to 1.9 cm. Shift is 1 mm right to left. Positive headache. No seizure activity. No real focal neurological deficits. 09/01: Patient subjective a weak left upper and lower extremity greater than right. Mumbling words. Stat CT brain revealed 2.6 cm image right intraparenchymal hemorrhage on the right temporal parietal region, 0.9 cm right cerebellar hemorrhage and bilateral subarachnoid hemorrhage convex's. Notified Dr. Aiken. Patient was intubated for airway protection and central line placed for hypertonic saline 09/02: Tmax 99.9. Improved subarachnoid hemorrhage. Stable right intraparenchymal hemorrhages. Potassium and phosphorus been replaced. No bowel movement. Subjective 09/03: Currently afebrile. Remains on propofol and fentanyl drips for sedation. Tolerating tube feeds at goal. Arousable with open eyes but not following commands currently. 09/04: Remains sedated, orally intubated on mechanical ventilation. Tolerating tube feeds. Objective Vital Signs Date Time Temp Pulse Resp B/P (MAP) Pulse Ox O2 Delivery O2 Flow Rate FiO2 09/04/17 09:56 97 160/69 09/04/17 09:43 100 40 09/04/17 04:00 98.7 14 09/03/17 20:00 Mechanical Ventilator 09/01/17 07:00 3.00 Intake and Output 09/04/17 09/04/17 09/05/17 08:00 16:00 00:00 Intake Total 1024 ml Output Total 800 ml Balance 224 ml Result Diagram: 09/04/17 0452 09/04/17 0452 Other Results Laboratory Tests Test 09/03/17 12:13 09/03/17 22:33 09/04/17 01:19 09/04/17 04:52 Sodium Level 151 MEQ/L 151 MEQ/L 152 MEQ/L Serum Osmolality 315 MOSM/KG 318 MOSM/KG 319 MOSM/KG Blood Gas Puncture Site ART LINE Blood Gas Patient Temperature 98.6 Blood Gas HCO3 22 mmol/L Blood Gas Base Excess -2.5 mmol/L Blood Gas Oxygen Saturation 97 % Arterial Blood pH 7.34 Arterial Blood Partial Pressure CO2 42 mmHg Arterial Blood Partial Pressure O2 155 mmHg Arterial Blood Oxygen Content 13.9 Vol % Arterial Blood Carboxyhemoglobin 0.8 % Arterial Blood Methemoglobin 1.1 % Blood Gas Hemoglobin 9.9 G/DL Oxygen Delivery Device VENTILATOR Blood Gas Ventilator Setting SEE COMMENT Blood Gas Inspired Oxygen 40 % White Blood Count 8.1 TH/MM3 Red Blood Count 3.46 MIL/MM3 Hemoglobin 9.6 GM/DL Hematocrit 29.6 % Mean Corpuscular Volume 85.5 FL Mean Corpuscular Hemoglobin 27.7 PG Mean Corpuscular Hemoglobin Concent 32.3 % Red Cell Distribution Width 14.8 % Platelet Count 193 TH/MM3 Mean Platelet Volume 8.5 FL Neutrophils (%) (Auto) 67.4 % Lymphocytes (%) (Auto) 15.5 % Monocytes (%) (Auto) 15.0 % Eosinophils (%) (Auto) 1.8 % Basophils (%) (Auto) 0.3 % Neutrophils # (Auto) 5.5 TH/MM3 Lymphocytes # (Auto) 1.3 TH/MM3 Monocytes # (Auto) 1.2 TH/MM3 Eosinophils # (Auto) 0.1 TH/MM3 Basophils # (Auto) 0.0 TH/MM3 CBC Comment DIFF FINAL Differential Comment Blood Urea Nitrogen 6 MG/DL Creatinine 0.51 MG/DL Random Glucose 212 MG/DL Total Protein 6.7 GM/DL Albumin 2.2 GM/DL Calcium Level 8.3 MG/DL Phosphorus Level 2.9 MG/DL Magnesium Level 2.0 MG/DL Alkaline Phosphatase 90 U/L Aspartate Amino Transf (AST/SGOT) 31 U/L Alanine Aminotransferase (ALT/SGPT) 26 U/L Total Bilirubin 0.4 MG/DL Potassium Level 3.6 MEQ/L Chloride Level 122 MEQ/L Carbon Dioxide Level 23.2 MEQ/L Anion Gap 7 MEQ/L Estimat Glomerular Filtration Rate 150 ML/MIN Valproic Acid (Depakene) Level 9 MCG/ML Imaging Last Impressions Chest X-Ray 09/03/17599 Signed Impressions: Service Date/Time: Sunday, September 03, 2017 04:42 - CONCLUSION: 1. Bibasilar atelectasis, slightly improved in the right lower lobe but slightly worsened left lower lobe. Fantasma Miller MD Head CT 09/02/17599 Signed Impressions: Service Date/Time: Saturday, September 02, 2017 04:41 - CONCLUSION: 1. Mild interval improvement in subarachnoid hemorrhage over the parietal convexities. 2. Stable intraparenchymal hemorrhage in the right parietal lobe and right cerebellar hemisphere. 3. The subdural drainage catheter remains in place with no residual subdural hematoma. 4. No new hemorrhage or mass effect. Tyree Wise MD Abdomen X-Ray 09/01/17 Signed Impressions: Service Date/Time: Friday, September 01, 2017 18:29 - CONCLUSION: Nasogastric tube coiled in the stomach with the tip projecting towards the GE junction. Migue Cuenca Jr., MD Maxillofacial CT 08/30/17 Signed Impressions: Service Date/Time: August 15:13 - CONCLUSION: 1. There is a minimally depressed right nasal bone fracture with adjacent soft tissue swelling. No other fracture is visualized. 2. Please refer to head CT report for description of the right subdural hematoma. Nacho Buckley MD Lumbar Spine CT 08/30/17 Signed Impressions: Service Date/Time: August 17:59 - CONCLUSION: Negative examination. Alec Latham MD Cervical Spine CT 08/30/17 Signed Impressions: Service Date/Time: August 15:12 - CONCLUSION: 1. No acute fracture or subluxation. Skinny Muñiz MD Objective Remarks GENERAL: 57-year-old AA female, resting in bed orotracheally intubated SKIN: Warm and dry. Abrasions to the right cheek and chin with evolving ecchymoses HEAD: Status post right craniotomy with subdural, scalp drain in place EYES: Pupils equal and round about 3 mm bilaterally and reactive. Right eyelid is somewhat swollen protuberant. No scleral icterus. No injection or drainage. ENT: No nasal bleeding or discharge. Mucous membranes pink and moist. NECK: Trachea midline. No JVD. CARDIOVASCULAR: Tachycardia, RR. S1, S2. No S4. Without murmur RESPIRATORY: Clear to auscultation. Breath sounds equal bilaterally. GASTROINTESTINAL: Abdomen soft, non-tender, nondistended. Bowel sounds are sluggish but appreciated MUSCULOSKELETAL: Extremities without significant peripheral edema. No obvious deformities. NEUROLOGICAL: Currently sedated on propofol and fentanyl drips. Eyes open. Withdraws to pain bilateral upper and lower extremities. Not following commands Date of Insertion: Sep 01, 2017 Line: Central Venous Catheter Side: Left Location: Internal, Jugular A/P Assessment and Plan Neuro/Psych: Postop day 3 right craniotomy with evacuation of subdural hematoma 2.6 cm right parietal/temporal intracranial hemorrhage, 0.9 cm right subdural hemorrhage and bilateral subarachnoid hemorrhage Right subdural hematoma - 1.6 cm fronto temporal with a 3 mm right to left shift Right closed nondisplaced nasal fracture Schizoaffective disorder Bipolar disorder Depression Seizure disorder NOS Propofol drip at 40 mcg/kg per minute/fentanyl drips at 150 g an hour for sedation/analgesia while intubated Goal of RASS -[address] brain 08/30 revealed a right frontal temporal subdural hematoma 1.6 cm thickness with a 3 mm right to left shift. Nondisplaced right nasal bone fracture. CT brain 08/31 revealed 2.6 cm right parietal intracranial hemorrhage, 0.9 cm right subdural hemorrhage and bilateral subarachnoid hemorrhage CT brain 09/01 revealed stable intraparenchymal hemorrhage improving subarachnoid hemorrhage at the convex EEG 08/31 revealed generalized slowing/encephalopathy. Disruption right side secondary to intraparenchymal hemorrhage. Levetiracetam 500 mg IV twice a day for seizure prophylaxis 7 days Resume home dose of valproic acid 250mg BID via OGT. Goal keep systolic blood pressure less than 140. Neurochecks Head of bed at 30 KRISS 20/120cc Evaluated by Dr. Aiken/neurosurgery Continue divalproex 1500 mg a night. Repeat level in a.m. 3. See 97 Currently on 3% saline goal 150-155 at 10 cc an hour Continue doxepin 10 mg by mouth daily Holding loratadine 10 mg by mouth daily CV: Hypertension Dyslipidemia Continue metoprolol 25 mg daily for hypertension. Continue Prinivil 20 mg by mouth daily. Continue isosorbide mononitrate 30 mg by mouth daily but switch to isosorbide dinitrate 10 mg 3 times a day As needed labetalol, hydralazine, Nitropaste and nicardipine drip to keep systolic blood pressure less than 140 Continue atorvastatin 40 mg by mouth daily for dyslipidemia Resp: PRVC 16/500/40 Ventilator bundle Albuterol/after aerosols every 6 hours with albuterol aerosols every 2 hours prn dyspnea Spontaneous breathing trials daily Chest x-ray revealed bilateral lower lobe atelectasis left greater than right. GI: Continue tube feeding with vital 1.5 goal 50 cc an hour Famotidine for GI prophylaxis Docusate sodium/senna and polyethylene glycol twice a day for bowel regimen. Add lactulose and mineral oil 1 today and a one-time dose of 12 mg subcutaneous methylnaltrexone : Incontinence Porter catheter if indicated for accurate I's and O's in a critically ill patient Holding Tolterodine 2 mg by mouth daily. Resume when clinically indicated Endo: Diabetes History of hypothyroidism/thyroid nodules Holding metformin 1000 mg daily and Linagliptin 5 mg daily for diabetes. Sliding-scale insulin with Accu-Cheks to maintain euglycemia detemir 10 units twice a day Renal: History of renal cell carcinoma status post right nephrectomy Patient is currently on normal saline at 84 cc an hour Monitor urine output Accurate I's and O's Follow-up ER BMP not completed Heme: Normocytic anemia Elevated PTT Thrombocytopenia Monitor CBC daily. Follow trends Does not meet transfusion thresholds at this time ID: Monitor for infection FEN: Hypophosphatemia Hypokalemia Replace electrolytes as clinically indicated per ICU electrolyte protocol. Recheck potassium and phosphorus at 1500 Holding cholecalciferol 1000 U daily. Resume when clinically indicated MSK: Osteoarthritis Physical therapy evaluate and treat Access -Left IJ CVL day #4 Prophylaxis - GI famotidine - DVT- SCD/holding pharmacological prophylaxis in light of subdural hematoma Patient remains critical with SDH, cerebral edema status post craniotomy on 3% saline. Critical care time 35 minutes excluding procedures Skyler Taylor MD Sep 04, 2017 11:04
[2017-09-04] MEDS: VALPROIC ACID SYRUP 250 MG/5 ML UDC OG-TUBE SCH ×2 (11:56→20:26)
--- NOTE | 2017-09-04 16:30 | HHI.NSPN ---
(Carmen Chamberlain) Note Status Status: Progress Note (Carmen Chamberlain) Interval History Interval History This is a 57-year-old female who apparently is status post slip and fall around 6 AM this morning. She states she was on her way to [facility] she had some eggs when she slipped in the wet grass hitting her face on the concrete. No loss of consciousness. Not seizure activity noted. Not tongue biting. No incontinence of stool or urine. ..She took her eggs and milk and transported back home because she had to meet the lawn maintenance worker. Patient states that she' s been having a headache and right-sided facial pain since. She denies any chest pain, shortness of breath, change in vision, numbness or tingling anywhere , neck pain, back pain, loss or change in bowel or bladder, or being on any blood thinners. She is moving where both upper and lower extremities without any focal deficit. CT of the brain showed a right sided accurate subdural hematoma causing mass effect and midline shift. The subdural was hematoma 1.6 cm thick with a 3 mm right to left shift. Maxillofacial CT revealed a nondisplaced right nasal fracture. CT spine negative. Neurosurgical consultation was requested 09/01: Letahrgic today. Open eyes follows commands withn all [address] brain showed new frontal and post fossa bleed 09/02: remains intubated, off sedation she slightly opens eyes and moves all four extremities. EEG yesterday neg for seizures. 09/03: intubated, again off sedation reports to open her eyes and moves x 4, but not following commands 09/04: nursing reports minimal eye opening, moves x 4. intubated and sedated. (Carmen Chamberlain) Labs, Micro, & Vital Signs Results Date Time Temp Pulse Resp B/P (MAP) Pulse Ox O2 Delivery O2 Flow Rate FiO2 09/04/17 14:00 88 09/04/17 12:30 100 30 09/04/17 12:28 100 30 09/04/17 12:00 40 09/04/17 12:00 91 09/04/17 12:00 99.1 104 14 99 136/61 (86) 09/04/17 10:00 97 09/04/17 09:56 97 160/69 09/04/17 09:43 100 40 09/04/17 08:00 100.7 104 14 98 169/69 (102) 09/04/17 08:00 40 09/04/17 08:00 104 09/04/17 07:00 98 Mechanical Ventilator 40 09/04/17 06:00 103 09/04/17 05:56 98 145/63 09/04/17 04:58 100 40 09/04/17 04:23 95 150/67 09/04/17 04:08 90 152/68 09/04/17 04:00 90 09/04/17 04:00 98.7 90 14 149/83 (105) 100 152/68 (96) 09/04/17 04:00 40 09/04/17 02:00 88 09/04/17 01:15 100 40 09/04/17 01:15 100 40 09/04/17 00:00 99.5 77 14 100 143/69 (93) 09/04/17 00:00 40 09/04/17 00:00 77 09/03/17 22:56 40 09/03/17 22:00 78 09/03/17 20:41 100 40 09/03/17 20:00 100 Mechanical Ventilator 40 09/03/17 20:00 100.5 87 16 100 150/70 (96) 09/03/17 20:00 87 09/03/17 20:00 40 09/03/17 18:00 82 09/03/17 17:20 100 40 09/05/17 07:00 Output Total 0 ml Balance 0 ml Constitutional Vital Signs Date Time Temp Pulse Resp B/P (MAP) Pulse Ox O2 Delivery O2 Flow Rate FiO2 09/04/17 14:00 88 09/04/17 12:30 100 30 09/04/17 12:28 100 30 09/04/17 12:00 40 09/04/17 12:00 91 09/04/17 12:00 99.1 104 14 99 136/61 (86) 09/04/17 10:00 97 09/04/17 09:56 97 160/69 09/04/17 09:43 100 40 09/04/17 08:00 100.7 104 14 98 169/69 (102) 09/04/17 08:00 40 09/04/17 08:00 104 09/04/17 07:00 98 Mechanical Ventilator 40 09/04/17 06:00 103 09/04/17 05:56 98 145/63 09/04/17 04:58 100 40 09/04/17 04:23 95 150/67 09/04/17 04:08 90 152/68 09/04/17 04:00 90 09/04/17 04:00 98.7 90 14 149/83 (105) 100 152/68 (96) 09/04/17 04:00 40 09/04/17 02:00 88 09/04/17 01:15 100 40 09/04/17 01:15 100 40 09/04/17 00:00 99.5 77 14 100 143/69 (93) 09/04/17 00:00 40 09/04/17 00:00 77 09/03/17 22:56 40 09/03/17 22:00 78 09/03/17 20:41 100 40 09/03/17 20:00 100 Mechanical Ventilator 40 09/03/17 20:00 100.5 87 16 100 150/70 (96) 09/03/17 20:00 87 09/03/17 20:00 40 09/03/17 18:00 82 09/03/17 17:20 100 40 09/05/17 07:00 Output Total 0 ml Balance 0 ml (Carmen Chamberlain) Review of Systems ROS Limitations: Clinical Condition, Intubated (Carmen Chamberlain) Physical Exam Ms. Haider remains intubated and sedated. Reports to slightly open eyes when sedation lowered. Cranial Nerves: Pupils 3-4 mm round, reactive to light. Cervical Spine: soft, supple, without nuchal rigidity. Motor: withdrawing legs to local pain stimuli (Carmen Chamberlain) Medical Decision Making MDM Remarks 57 y/o female TBI following slip and fall on wet grass, she hit her face on concrete sidewalk, CT Brain on arrival with right subdural hematoma, diffuse SAH she underwent right side craniotomy for evacuation of subdural hematoma on 08/31 respiratory failure, reintubated 09/01/17 f/u CT Head 09/02 with improvement of right subdural hematoma, stable right temporal/parietal intraparenchymal hematoma, small right cerebellar contusion, and diffuse SAH, no new ICH EEG 09/01 neg for seizure (Carmen Chamberlain) Plan Plan Remarks cont critical care management, cont sedation and vent weaning as tolerated follow up neuro exam Protonix for stress ulcer prophylaxis nonchemical dvt prophylaxis in view of ICH follow up CT Head tomorrow am (Carmen Chamberlain) Attending Statement The exam, history, and the medical decision-making described in the above note were completed with the assistance of the mid-level provider. I reviewed and agree with the findings presented. I attest that I had a [id number] encounter with the patient on the same day, and personally performed and documented my assessment and findings in the medical record. (Yannick Aiken MD) Carmen Chamberlain Sep 04, 2017 16:30 Yannick Aiken MD Sep 09, 2017 22:10
[2017-09-04] MEDS: DIVALPROEX SODIUM E.R. 500 MG TAB PO SCH (19:37)
[2017-09-04] MEDS: DOXEPIN HCL 10 MG CAP PO SCH (20:25)
[2017-09-04] MEDS: ATORVASTATIN 40 MG TAB PO SCH (20:25)
[2017-09-04 22:02] LABS: BLOOD GAS BASE EXCESS 2.1 mmol/L (-2-2); BLOOD GAS CARBOXYHEMOGLOBIN 1.3 % (0-4); BLOOD GAS HCO3 25 mmol/L (22-26); BLOOD GAS METHEMOGLOBIN 0.9 % (0-2); BLOOD GAS O2 HGB SATURATION 95 % (90-100); BLOOD GAS OXYGEN CONTENT 12.2 Vol % (12.0-20.0); BLOOD GAS PCO2 31 mmHg (38-42); BLOOD GAS PO2 85 mmHg (61-120); TEMP CORR TO 98.6
[2017-09-04 22:04] LABS: CRITICAL VALUE YES
[2017-09-04 22:05] LABS: DRAW SITE ART LINE; FIO2 30 %; OXYGEN DEVICE VENTILATOR; STAT NO; VENT SETTINGS SEE COMMENTS
[2017-09-05] VITALS (18 sets, daily range): BP systolic 131–214; BP diastolic 62–102; PULSE 70–104; RESP 14; TEMP 98.7–99.4; O2SAT 96–100
[2017-09-05] MEDS: INSULIN NovoLIN REGULAR SUPPLEMENTAL SCALE SQ SCH ×4 (00:24→18:00)
[2017-09-05] MEDS: CHLORHEXIDINE GLUCONATE 2 % 1 PACK (2 CLOTHS) TOP SCH (00:25)
[2017-09-05] MEDS: PROPOFOL 1000 MG/100 ML INJ 100 ML IV PRN ×4 (03:42→20:30)
[2017-09-05] MEDS: fentaNYL DRIP 250 ML IV PRN ×2 (03:43→15:00)
[2017-09-05] MEDS: RESP: ALBUTEROL 2.5 MG/IPRATROPIUM 0.5 MG NEB (SCH) NEB ×4 (03:51→21:05)
[2017-09-05] MEDS: ISOSORBIDE DINITRATE 10 MG TAB PO SCH ×3 (05:08→23:00)
[2017-09-05] MEDS: ARTIFICIAL TEARS OPTH SOLN 15 ML BTL EACH EYE SCH ×3 (05:08→23:01)
[2017-09-05 05:38] LABS: AUTOMATED NEUTROPHIL # 4.8 TH/MM3 (1.8-7.7); BASOPHIL % 0.2 % (0.0-2.0); EOSINOPHIL # 0.1 TH/MM3 (0-0.4); EOSINOPHIL % 1.5 % (0.0-4.0); HEMATOCRIT 25.9 % (35.0-46.0); HEMO FLAGS DIFF FINAL; LYMPH % 21.4 % (9.0-44.0); LYMPHOCYTE # 1.7 TH/MM3 (1.0-4.8); MEAN CELL VOLUME 83.8 FL (80.0-100.0); MEAN CORPUSCULAR HEMOGLOBIN 27.9 PG (27.0-34.0); MEAN CORPUSCULAR HGB CONC 33.4 % (32.0-36.0); NEUT % 60.9 % (16.0-70.0); PLATELET COUNT 201 TH/MM3 (150-450); RED BLOOD COUNT 3.09 MIL/MM3 (4.00-5.30); RED CELL DISTRIBUTION WIDTH 14.7 % (11.6-17.2); WHITE BLOOD COUNT 7.8 TH/MM3 (4.0-11.0)
[2017-09-05 05:48] LABS: ANION GAP 7 MEQ/L (5-15); AST (GOT) 27 U/L (15-37); BICARBONATE 25.3 MEQ/L (21.0-32.0); BLOOD UREA NITROGEN 7 MG/DL (7-18); CHLORIDE 115 MEQ/L (98-107); GLOMERULAR FILTRATION RATE 129 ML/MIN (>89); POTASSIUM 3.3 MEQ/L (3.5-5.1); SODIUM (NA) 147 MEQ/L (136-145)
[2017-09-05 05:49] LABS: ALT (GPT) 27 U/L (10-53)
[2017-09-05 05:51] LABS: ALKALINE PHOSPHATASE 84 U/L (45-117); TOTAL BILIRUBIN ADULT 0.4 MG/DL (0.2-1.0)
[2017-09-05] MEDS: POTASSIUM CHLOR 40 MEQ PREMIX 100 ML IV PRN (06:00)
[2017-09-05] MEDS: CHLORHEXIDINE 0.12% (ORAL KIT) 15 ML CUP MT SCH ×2 (08:00→20:36)
[2017-09-05] MEDS: levETIRAcetam INJ 500 MG in SODIUM CHLORIDE 0.9% INJ 100 ML IV SCH ×2 (08:36→20:36)
[2017-09-05] MEDS: LACTULOSE SYRUP 20 GM/30 ML CUP PO SCH ×2 (08:36→23:00)
[2017-09-05] MEDS: VALPROIC ACID SYRUP 250 MG/5 ML UDC OG-TUBE SCH ×2 (08:36→20:37)
[2017-09-05] MEDS: SENNOSIDES SYRUP 8.8 MG/5 ML CUP PO SCH ×2 (08:36→23:01)
[2017-09-05] MEDS: DOCUSATE SODIUM 100 MG/10 ML UDC PO SCH ×2 (08:36→23:00)
[2017-09-05] MEDS: SODIUM CHLORIDE 0.9% FLUSH 10 ML FLUSH IV FLUSH SCH ×3 (08:36→20:37)
[2017-09-05] MEDS: POLYETHYLENE GLYCOL 17 GM PKG PO SCH ×2 (08:37→23:01)
[2017-09-05] MEDS: TOLTERODINE TARTRATE 2 MG CAP LA PO SCH (08:37)
[2017-09-05] MEDS: CHOLECALCIFEROL (VIT D3) 1000 UNIT TAB PO SCH (08:37)
[2017-09-05] MEDS: METOPROLOL TARTRATE 25 MG TAB PO SCH (08:37)
[2017-09-05] MEDS: LISINOPRIL 20 MG TAB PO SCH (08:37)
[2017-09-05] MEDS: FUROSEMIDE 40 MG TAB PO SCH (08:37)
[2017-09-05] MEDS: INSULIN DETEMIR 100 UNITS/ML VIAL SQ SCH ×2 (08:38→20:39)
[2017-09-05] MEDS: MUPIROCIN 2% OINT 1 APPLIC/GM SYR EACH NARE SCH ×2 (09:00→20:36)
--- NOTE | 2017-09-05 09:58 | RADRPT ---
EXAM DATE/TIME: 09/05/2017 09:46 [facility] COMPARISON: CT BRAIN W/O CONTRAST, September 02, 2017, 4:41. INDICATIONS : Evaluate status of intracerebral bleed. RADIATION DOSE: 58.61 CTDIvol (mGy) MEDICAL HISTORY : Hypertension. Renal cell carcinoma. SURGICAL HISTORY : Cholecystectomy. Tubal ligation.Nephrectomy, right. ENCOUNTER: Initial ACUITY: 1 week PAIN SCALE: Non-responsive LOCATION: cranial TECHNIQUE: Multiple contiguous axial images were obtained of the head. Using automated exposure control and adj ustment of the mA and/or kV according to patient size, radiation dose was kept as low as reasonably a chievable to obtain optimal diagnostic quality images. DICOM format image data is available electro nically for review and comparison. FINDINGS: Status post right parietal craniotomy with good approximation of the craniotomy flap. A there is a s table appearance to a with a hemorrhage in the right posterior sylvian region (2.2 cm), subarachnoid blood in the sylvian fissure and about the mid and high convexity bilateral parietal sulci, and layer ing intraventricular blood in the occipital horns. The ventricles are symmetric in size. No evidenc e of midline shift. No evidence of subdural hematoma. The posterior fossa, there is a solitary residual hemorrhage in the right posterior parasagittal cere bellum. The 4th ventricle is midline and stable in size. CONCLUSION: No new findings. Stable right parietal and right cerebellar parenchymal hemorrhages, bilateral layer ing intraventricular blood, and bilateral parietal subarachnoid hemorrhage. Migeu De León MD on September 05, 2017 at 9:52 Board Certified Radiologist. This report was verified electronically.
[2017-09-05] MEDS: FAMOTIDINE 20 MG/2 ML VIAL IV PUSH SCH ×2 (11:15→23:00)
--- NOTE | 2017-09-05 12:45 | HHI.NSPN ---
(Carmen Chamberlain) Note Status Status: Progress Note (Carmen Chamberlain) Interval History Interval History This is a 57-year-old female who apparently is status post slip and fall around 6 AM this morning. She states she was on her way to [facility] she had some eggs when she slipped in the wet grass hitting her face on the concrete. No loss of consciousness. Not seizure activity noted. Not tongue biting. No incontinence of stool or urine. ..She took her eggs and milk and transported back home because she had to meet the general maintenance helper. Patient states that she' s been having a headache and right-sided facial pain since. She denies any chest pain, shortness of breath, change in vision, numbness or tingling anywhere , neck pain, back pain, loss or change in bowel or bladder, or being on any blood thinners. She is moving where both upper and lower extremities without any focal deficit. CT of the brain showed a right sided accurate subdural hematoma causing mass effect and midline shift. The subdural was hematoma 1.6 cm thick with a 3 mm right to left shift. Maxillofacial CT revealed a nondisplaced right nasal fracture. CT spine negative. Neurosurgical consultation was requested 09/01: Letahrgic today. Open eyes follows commands withn all [address] brain showed new frontal and post fossa bleed 09/02: remains intubated, off sedation she slightly opens eyes and moves all four extremities. EEG yesterday neg for seizures. 09/03: intubated, again off sedation reports to open her eyes and moves x 4, but not following commands 09/04: nursing reports minimal eye opening, moves x 4. intubated and sedated. 09/05: f/u CT Head completed, stable right temporal and cerebellar hemorrhage, no significant midline shift or mass effect. remains intubated and sedated. (Carmen Chamberlain) Labs, Micro, & Vital Signs Results Date Time Temp Pulse Resp B/P (MAP) Pulse Ox O2 Delivery O2 Flow Rate FiO2 09/05/17 10:00 70 09/05/17 09:47 100 60 09/05/17 08:57 100 30 09/05/17 08:00 30 09/05/17 08:00 77 09/05/17 08:00 99.0 77 14 100 131/69 (89) 09/05/17 06:00 77 09/05/17 04:22 99 30 09/05/17 04:00 30 09/05/17 04:00 98.7 76 14 100 136/66 (89) 09/05/17 04:00 76 09/05/17 03:11 83 149/71 09/05/17 03:05 86 183/78 09/05/17 02:55 83 163/75 09/05/17 02:45 84 155/75 09/05/17 02:00 77 09/05/17 01:21 35 09/05/17 01:21 100 30 09/05/17 00:00 30 09/05/17 00:00 98.7 74 14 100 141/70 (93) 09/05/17 00:00 78 09/04/17 23:07 76 133/67 09/04/17 23:05 78 145/67 09/04/17 22:00 96 09/04/17 20:40 98 30 09/04/17 20:00 30 09/04/17 20:00 96 09/04/17 20:00 99.7 85 24 99 190/80 (116) 09/04/17 18:00 89 09/04/17 17:03 100 30 09/04/17 16:00 98.2 90 14 100 155/67 (96) 09/04/17 16:00 90 09/04/17 16:00 40 09/04/17 14:00 88 09/06/17 07:00 Output Total 375.0 ml Balance -375.0 ml Constitutional Vital Signs Date Time Temp Pulse Resp B/P (MAP) Pulse Ox O2 Delivery O2 Flow Rate FiO2 09/05/17 10:00 70 09/05/17 09:47 100 60 09/05/17 08:57 100 30 09/05/17 08:00 30 09/05/17 08:00 77 09/05/17 08:00 99.0 77 14 100 131/69 (89) 09/05/17 06:00 77 09/05/17 04:22 99 30 09/05/17 04:00 30 09/05/17 04:00 98.7 76 14 100 136/66 (89) 09/05/17 04:00 76 09/05/17 03:11 83 149/71 09/05/17 03:05 86 183/78 09/05/17 02:55 83 163/75 09/05/17 02:45 84 155/75 09/05/17 02:00 77 09/05/17 01:21 35 09/05/17 01:21 100 30 09/05/17 00:00 30 09/05/17 00:00 98.7 74 14 100 141/70 (93) 09/05/17 00:00 78 09/04/17 23:07 76 133/67 09/04/17 23:05 78 145/67 09/04/17 22:00 96 09/04/17 20:40 98 30 09/04/17 20:00 30 09/04/17 20:00 96 09/04/17 20:00 99.7 85 24 99 190/80 (116) 09/04/17 18:00 89 09/04/17 17:03 100 30 09/04/17 16:00 98.2 90 14 100 155/67 (96) 09/04/17 16:00 90 09/04/17 16:00 40 09/04/17 14:00 88 09/06/17 07:00 Output Total 375.0 ml Balance -375.0 ml (Carmen Chamberlain) Review of Systems ROS Limitations: Intubated (Carmen Chamberlain) Physical Exam Ms. Haider is intubated and sedated. Surgical wound is healing well. Cranial Nerves: Pupils 3-4 mm round, reactive to light. Face musculature appeared symmetrical at rest. Motor: well sedated, reports to move all four during sedation vacation Sensory: localizing with both upper and lower extremities. Cerebellar: cannot assess due to clinical condition (Carmen Chamberlain) Medications Current Medications Current Medications Medications (Trade) Dose Ordered Sig/Christopher Route PRN Reason Start Time Stop Time Status Last Admin Dose Admin Sodium Chloride (NS Flush) 2 ml UNSCH PRN IV FLUSH FLUSH AFTER USING IV ACCESS 08/30/17 16:15 Sodium Chloride (NS Flush) 2 ml BID IV FLUSH 08/30/17 21:00 09/05/17 08:36 Ondansetron HCl (Zofran Inj) 4 mg Q6H PRN IV PUSH NAUSEA OR VOMITING 08/30/17 16:15 Albuterol Sulfate (Albuterol Neb) 2.5 mg Q2HR NEB PRN INH SOB/WHEEZING 08/30/17 16:15 Miscellaneous Information 1 Q361D XX 08/30/17 16:15 Chlorhexidine Gluconate (Chlorhexidine 2% Cloth) Taper DAILY@04 TOP 08/31/17 04:00 08/27/18 03:59 09/04/17 04:00 Chlorhexidine Gluconate (Chlorhexidine 2% Cloth) 3 pack UNSCH PRN TOP HYGIENIC CARE 08/30/17 16:15 Magnesium Hydroxide (Milk Of Juan Manuel Liriley) 30 ml Q12H PRN PO Mild constipation 08/30/17 16:15 Sennosides (Senokot) 17.2 mg Q12H PRN PO Moderate constipation 08/30/17 16:15 Bisacodyl (Dulcolax Supp) 10 mg DAILY PRN RECTAL SEVERE CONSITIPATION 08/30/17 16:15 Atorvastatin Calcium (Lipitor) 40 mg HS PO 08/30/17 21:00 09/04/17 20:25 Doxepin HCl (SINEquan) 10 mg HS PO 08/30/17 21:00 09/04/17 20:25 Furosemide (Lasix) 40 mg DAILY PO 08/31/17 09:00 09/05/17 08:37 Lisinopril (Prinivil) 20 mg DAILY PO 08/31/17 09:00 09/05/17 08:37 Metoprolol Tartrate (Lopressor) 25 mg DAILY PO 08/31/17 09:00 09/05/17 08:37 Levetriacetam 500 mg/Sodium Chloride 105 ml @ 420 mls/hr Q12HR IV 08/30/17 21:00 09/05/17 08:36 Dextrose (D50w (Vial) Inj) 50 ml UNSCH PRN IV PUSH HYPOGLYCEMIA-SEE COMMENTS 08/30/17 16:15 Glucagon (Glucagon Inj) 1 mg UNSCH PRN OTHER HYPOGLYCEMIA-SEE COMMENTS 08/30/17 16:15 Labetalol HCl (Trandate Inj) 10 mg Q1HR PRN IV PUSH SBP>150, DBP>90, HR>65 08/30/17 16:15 09/04/17 20:27 Hydralazine HCl (Apresoline Inj) 10 mg Q1HR PRN IV PUSH SBP>150, DBP>90 08/30/17 16:15 09/03/17 23:45 Nitroglycerin (Nitroglycerin 2% Oint) 2 inch Q6H PRN TOPICAL SBP>150, DBP>90 08/30/17 16:15 Calcium Gluconate (Calcium Gluconate Inj) 1 gm UNSCH PRN IV SEE LABEL COMMENTS 08/31/17 13:30 Acetaminophen/ Hydrocodone Bitart ([place] 10-325 Mg) 1 tab Q4H PRN PO PAIN SCALE 1 TO 5 08/31/17 13:30 Future Hold Acetaminophen/ Hydrocodone Bitart ([place] 10-325 Mg) 2 tab Q4H PRN PO PAIN SCALE 6 TO 10 08/31/17 13:30 Future Hold Morphine Sulfate (Morphine Inj) 2 mg Q2H PRN IV PUSH PAIN SCALE 1 TO 6 08/31/17 13:30 09/01/17 06:15 Morphine Sulfate (Morphine Inj) 4 mg Q2H PRN IV PUSH PAIN SCALE 7 TO 10 08/31/17 13:30 Cholecalciferol (Vitamin D3) 1,000 units DAILY PO 09/01/17 09:00 09/05/17 08:37 Tolterodine Tartrate (Detrol La) 2 mg DAILY PO 09/01/17 09:00 09/04/17 08:50 Patient Own Medication PT OWN MED: LINAGLIP... DAILY PO 09/01/17 09:00 Future Hold Mupirocin (Bactroban Nasal 2% Oint) 1 applic Taper BID EACH NARE 09/01/17 10:00 08/28/18 09:59 09/05/17 09:00 Chlorhexidine Gluconate (Peridex 0.12% Liq) 15 ml BID@08,20 MT 09/01/17 20:00 09/05/17 08:00 Propofol 100 ml @ 2.79 mls/hr TITRATE PRN IV SEDATION 09/01/17 09:45 09/05/17 09:27 Fentanyl Citrate 250 ml @ 5 mls/hr TITRATE PRN IV SEDATION 09/01/17 09:45 09/05/17 03:43 Nicardipine HCl 25 mg/Sodium Chloride 250 ml @ 50 mls/hr TITRATE PRN IV Blood pressure management 09/01/17 10:00 09/04/17 23:05 Sodium Chloride (NS Flush) DAILY IV FLUSH 09/01/17 10:30 09/03/17 08:25 Sodium Chloride (NS Flush) UNSCH PRN IV FLUSH SEE PROTOCOL 09/01/17 10:30 Artificial Tears (Tears Naturale Opth Soln) 1 drop Q8HR EACH EYE 09/01/17 14:00 09/05/17 05:08 Famotidine (Pepcid Inj) 20 mg Q12H IV PUSH 09/01/17 11:00 09/05/17 11:15 Isosorbide Dinitrate (Isordil) 10 mg Q8HR PO 09/01/17 14:00 09/05/17 05:08 Potassium Chloride 100 ml @ 50 mls/hr Q2H PRN IV For Potassium 2.8 - 3.2 mEq/L 09/02/17 06:30 Potassium Chloride 100 ml @ 50 mls/hr Q2H PRN IV For Potassium 2.8 - 3.2 mEq/L 09/02/17 06:30 Potassium Bicarb/ Potassium Chloride (K-Lyte Cl Eff) 50 meq UNSCH PRN PO For Potassium 3.3 - 3.5 mEq/L 09/02/17 06:30 Potassium Chloride 100 ml @ 25 mls/hr UNSCH PRN IV For Potassium 3.3 - 3.5 mEq/L 09/02/17 06:30 09/05/17 06:00 Potassium Chloride 100 ml @ 50 mls/hr Q2H PRN IV For Potassium 3.3 - 3.5 mEq/L 09/02/17 06:30 Magnesium Sulfate 4 gm/Sodium Chloride 100 ml @ 50 mls/hr UNSCH PRN IV For Magnesium 0.9 - 1.1 mg/dL 09/02/17 06:30 Magnesium Oxide (Mag-Ox) 800 mg UNSCH PRN PO For Magnesium 1.2 - 1.6 mg/dL 09/02/17 06:30 Magnesium Sulfate 2 gm/Sodium Chloride 100 ml @ 50 mls/hr UNSCH PRN IV For Magnesium 1.2 - 1.6 mg/dL 09/02/17 06:30 Potassium Phosphate (K-Phos) 2,000 mg Q4H PRN PO For Phosphorus < 2.5 mg/dL 09/02/17 06:30 Sodium Phosphate 30 mmol/Sodium Chloride 250 ml @ 42 mls/hr UNSCH PRN IV For Phosphorus < 2.5 mg/dL 09/02/17 06:30 Potassium Phosphate (K-Phos) 2,000 mg UNSCH PRN PO/TUBE SEE LABEL COMMENTS 09/02/17 06:30 Potassium Phosphate 30 mmol/ Sodium Chloride 260 ml @ 42 mls/hr UNSCH PRN IV SEE LABEL COMMENTS 09/02/17 06:30 09/02/17 08:28 Insulin Detemir (Levemir Inj) 10 units Q12HR SQ 09/02/17 09:00 09/05/17 08:38 Docusate Sodium (Colace Liq) 100 mg Q12HR PO 09/02/17 09:00 09/05/17 08:36 Sennosides (Senna Liq) 8.8 mg BID PO 09/02/17 09:00 09/05/17 08:36 Polyethylene Glycol (Miralax) 17 gm BID PO 09/02/17 09:00 09/05/17 08:37 Acetaminophen (Tylenol 650 Mg/ 20 ml Liq) 650 mg Q6H PRN PO fever 09/02/17 07:15 09/03/17 20:16 Sodium Chloride 500 ml @ 10 mls/hr CONTINUOUS IV 09/02/17 11:45 09/03/17 17:47 Lactulose (Lactulose Liq) 30 ml BID PO 09/03/17 08:00 09/05/17 08:36 Insulin Human Regular (NovoLIN R SUPPLEMENTAL SCALE) 1 Q6HR SQ 09/03/17 12:00 09/05/17 12:00 Albuterol/ Ipratropium (Duoneb Neb) 1 ampule Q6HR NEB NEB 09/03/17 10:00 09/05/17 08:54 Valproic Acid (Depakene Liq) 250 mg BID OG-TUBE 09/04/17 11:00 09/05/17 08:36 (Carmen Chamberlain) Medical Decision Making MDM Remarks 57 y/o female TBI following slip and fall on wet grass, she hit her face on concrete sidewalk, CT Brain on arrival with right subdural hematoma, diffuse SAH she underwent right side craniotomy for evacuation of subdural hematoma on 08/31 respiratory failure, reintubated 09/01/17 f/u CT Head 09/02 with improvement of right subdural hematoma, stable right temporal/parietal intraparenchymal hematoma, small right cerebellar contusion, and diffuse SAH, no new ICH f/u CT Head 09/05 stable to improving right temporal/parietal and cerebellar ICH EEG 09/01 neg for seizure (Carmen Chamberlain) Plan Plan Remarks cont critical care management, sedation and vent weaning as tolerated serial neuro checks, and follow up exam dw Dr. Aiken, ok to dc hyperosmotic tx (Carmen Chamberlain) Attending Statement The exam, history, and the medical decision-making described in the above note were completed with the assistance of the mid-level provider. I reviewed and agree with the findings presented. I attest that I had a [id number] encounter with the patient on the same day, and personally performed and documented my assessment and findings in the medical record. (Yannick Aiken MD) Carmen Chamberlain Sep 05, 2017 12:45 Yannick Aiken MD Sep 09, 2017 22:14
[2017-09-05] MEDS: niCARdipine INJ 25 MG in SODIUM CHLOR 0.9% 250 ML INJ 240 ML IV PRN ×5 (16:20→23:58)
--- NOTE | 2017-09-05 16:31 | HHI.CCPN ---
Subjective Remarks/Hospital Course 57-year-old AA female . Date of admission 08/30/2017. Past medical history includes schizoaffective/bipolar, depression, seizure disorder, hypertension, dyslipidemia, diabetes and allergic rhinitis. She is not on any blood thinners or aspirin. This patient was walking from [place] in approximately 6 AM this morning when she suffered a fall and landed on the right side of her face.. She states she slipped in the wet grass hitting her face on the concrete. No loss of consciousness. Not seizure activity noted. Not tongue biting. No incontinence of stool or urine. She took her eggs and milk and transported back home because she had to meet the building maintenance custodian. Patient states that she's been having a headache and right-sided facial pain since. 08/30 CT of the brain showed a right frontotemporal subdural hematoma 1.6 cm with a 3 mm right to left shift. Maxillofacial CT revealed a nondisplaced right nasal fracture. CT spine negative. CBC showed normocytic anemia. BMP is pending. Elevated PTT coags at 33. Patient was loaded with 500 mg levetiracetam, given as needed for elevated blood pressure stabilized in the ED. Neurosurgical consultation was requested with Dr. Aiken. 08/31: Afebrile. CT brain revealed increased diameter right-sided subdural hematoma up to 1.9 cm. Shift is 1 mm right to left. Positive headache. No seizure activity. No real focal neurological deficits. 09/01: Patient subjective a weak left upper and lower extremity greater than right. Mumbling words. Stat CT brain revealed 2.6 cm image right intraparenchymal hemorrhage on the right temporal parietal region, 0.9 cm right cerebellar hemorrhage and bilateral subarachnoid hemorrhage convex's. Notified Dr. Aiken. Patient was intubated for airway protection and central line placed for hypertonic saline 09/02: Tmax 99.9. Improved subarachnoid hemorrhage. Stable right intraparenchymal hemorrhages. Potassium and phosphorus been replaced. No bowel movement. Subjective 09/03: Currently afebrile. Remains on propofol and fentanyl drips for sedation. Tolerating tube feeds at goal. Arousable with open eyes but not following commands currently. 09/04: Remains sedated, orally intubated on mechanical ventilation. Tolerating tube feeds. 09/05: Remains sedated, orally intubated on mechanical ventilation. Tolerating tube feeds. Objective Vital Signs Date Time Temp Pulse Resp B/P (MAP) Pulse Ox O2 Delivery O2 Flow Rate FiO2 09/05/17 15:57 100 30 09/05/17 14:00 75 09/05/17 12:00 98.7 14 131/62 (85) 09/04/17 07:00 Mechanical Ventilator 09/01/17 07:00 3.00 Intake and Output 09/05/17 09/05/17 09/06/17 08:00 16:00 00:00 Intake Total 825 ml Output Total 1725.0 ml Balance -900.0 ml Result Diagram: 09/05/17 0505 09/05/17 0505 Other Results Laboratory Tests Test 09/04/17 21:44 Blood Gas Puncture Site ART LINE Blood Gas Patient Temperature 98.6 Blood Gas HCO3 25 mmol/L (22-26) Blood Gas Base Excess 2.1 mmol/L (-2-2) Blood Gas Oxygen Saturation 95 % (90-100) Arterial Blood pH 7.52 (7.380-7.420) Arterial Blood Partial Pressure CO2 31 mmHg (38-42) Arterial Blood Partial Pressure O2 85 mmHg (61-120) Arterial Blood Oxygen Content 12.2 Vol % (12.0-20.0) Arterial Blood Carboxyhemoglobin 1.3 % (0-4) Arterial Blood Methemoglobin 0.9 % (0-2) Blood Gas Hemoglobin 9.0 G/DL (12.0-16.0) Oxygen Delivery Device VENTILATOR Blood Gas Ventilator Setting SEE COMMENTS Blood Gas Inspired Oxygen 30 % Imaging Last Impressions Chest X-Ray 09/03/17599 Signed Impressions: Service Date/Time: Sunday, September 03, 2017 04:42 - CONCLUSION: 1. Bibasilar atelectasis, slightly improved in the right lower lobe but slightly worsened left lower lobe. Fantasma Miller MD Head CT 09/02/17599 Signed Impressions: Service Date/Time: Saturday, September 02, 2017 04:41 - CONCLUSION: 1. Mild interval improvement in subarachnoid hemorrhage over the parietal convexities. 2. Stable intraparenchymal hemorrhage in the right parietal lobe and right cerebellar hemisphere. 3. The subdural drainage catheter remains in place with no residual subdural hematoma. 4. No new hemorrhage or mass effect. Tyree Wise MD Abdomen X-Ray 09/01/17 0000 Signed Impressions: Service Date/Time: Friday, September 01, 2017 18:29 - CONCLUSION: Nasogastric tube coiled in the stomach with the tip projecting towards the GE junction. Migue Cuenca Jr., MD Maxillofacial CT 08/30/17 0000 Signed Impressions: Service Date/Time: , August 30, 2017 15:13 - CONCLUSION: 1. There is a minimally depressed right nasal bone fracture with adjacent soft tissue swelling. No other fracture is visualized. 2. Please refer to head CT report for description of the right subdural hematoma. Nacho Buckley MD Lumbar Spine CT 08/30/17 0000 Signed Impressions: Service Date/Time: , August 30, 2017 17:59 - CONCLUSION: Negative examination. Alec Latham MD Cervical Spine CT 08/30/17 0000 Signed Impressions: Service Date/Time: August 15:12 - CONCLUSION: 1. No acute fracture or subluxation. Skinny Muñiz MD Objective Remarks GENERAL: 57-year-old AA female, resting in bed orotracheally intubated SKIN: Warm and dry. Abrasions to the right cheek and chin with evolving ecchymoses HEAD: Status post right craniotomy with subdural, scalp drain in place EYES: Pupils equal and round about 3 mm bilaterally and reactive. Right eyelid is somewhat swollen protuberant. No scleral icterus. No injection or drainage. ENT: No nasal bleeding or discharge. Mucous membranes pink and moist. NECK: Trachea midline. No JVD. CARDIOVASCULAR: Tachycardia, RR. S1, S2. No S4. Without murmur RESPIRATORY: Clear to auscultation. Breath sounds equal bilaterally. GASTROINTESTINAL: Abdomen soft, non-tender, nondistended. Bowel sounds are sluggish but appreciated MUSCULOSKELETAL: Extremities without significant peripheral edema. No obvious deformities. NEUROLOGICAL: Currently sedated on propofol and fentanyl drips. Eyes open. Withdraws to pain bilateral upper and lower extremities. Not following commands Date of Insertion: Sep 01, 2017 Line: Central Venous Catheter Side: Left Location: Internal, Jugular A/P Assessment and Plan Neuro/Psych: Postop day 3 right craniotomy with evacuation of subdural hematoma 2.6 cm right parietal/temporal intracranial hemorrhage, 0.9 cm right subdural hemorrhage and bilateral subarachnoid hemorrhage Right subdural hematoma - 1.6 cm fronto temporal with a 3 mm right to left shift Right closed nondisplaced nasal fracture Schizoaffective disorder Bipolar disorder Depression Seizure disorder NOS Propofolfentanyl drips for sedation/analgesia while intubated Goal of RASS -[address] brain 08/30 revealed a right frontal temporal subdural hematoma 1.6 cm thickness with a 3 mm right to left shift. Nondisplaced right nasal bone fracture. CT brain 08/31 revealed 2.6 cm right parietal intracranial hemorrhage, 0.9 cm right subdural hemorrhage and bilateral subarachnoid hemorrhage CT brain 09/01 revealed stable intraparenchymal hemorrhage improving subarachnoid hemorrhage at the convex CT Head 09/05 with stable areas of ICH/ SAH. EEG 08/31 revealed generalized slowing/encephalopathy. Disruption right side secondary to intraparenchymal hemorrhage. Levetiracetam 500 mg IV twice a day for seizure prophylaxis 7 days Resumed home dose of valproic acid 250mg BID via OGT. Goal keep systolic blood pressure less than 140. Neurochecks Head of bed at 30 Stop hypertonic saline 09/05 per neurosurgery. Evaluated by Dr. Aiken/neurosurgery Continue doxepin 10 mg by mouth daily Holding loratadine 10 mg by mouth daily CV: Hypertension Dyslipidemia Continue metoprolol 25 mg daily for hypertension. Continue Prinivil 20 mg by mouth daily. Continue isosorbide mononitrate 30 mg by mouth daily but switch to isosorbide dinitrate 10 mg 3 times a day As needed labetalol, hydralazine, Nitropaste and nicardipine drip to keep systolic blood pressure less than 140 Continue atorvastatin 40 mg by mouth daily for dyslipidemia Resp: [facility] 16/500/11/16/39 Ventilator bundle Albuterol/after aerosols every 6 hours with albuterol aerosols every 2 hours prn dyspnea Spontaneous breathing trials daily Chest x-ray revealed bilateral lower lobe atelectasis left greater than right. GI: Continue tube feeding with vital 1.5 goal 50 cc an hour Famotidine for GI prophylaxis Docusate sodium/senna and polyethylene glycol twice a day for bowel regimen. Add lactulose and mineral oil 1 today and a one-time dose of 12 mg subcutaneous methylnaltrexone : Incontinence Porter catheter if indicated for accurate I's and O's in a critically ill patient Holding Tolterodine 2 mg by mouth daily. Resume when clinically indicated Endo: Diabetes History of hypothyroidism/thyroid nodules Holding metformin 1000 mg daily and Linagliptin 5 mg daily for diabetes. Sliding-scale insulin with Accu-Cheks to maintain euglycemia detemir 10 units twice a day Renal: History of renal cell carcinoma status post right nephrectomy KVO IVF 09/05 Monitor urine output Accurate I's and O's Follow-up ER BMP not completed Heme: Normocytic anemia Elevated PTT Thrombocytopenia Monitor CBC daily. Follow trends Does not meet transfusion thresholds at this time ID: Monitor for infection FEN: Hypophosphatemia Hypokalemia Replace electrolytes as clinically indicated per ICU electrolyte protocol. Recheck potassium and phosphorus at 1500 Holding cholecalciferol 1000 U daily. Resume when clinically indicated MSK: Osteoarthritis Physical therapy evaluate and treat Access -Left IJ CVL day #5 Prophylaxis - GI famotidine - DVT- SCD/holding pharmacological prophylaxis in light of subdural hematoma Patient remains critical with SDH, cerebral edema status post craniotomy Critical care time 35 minutes excluding procedures Skyler Taylor MD Sep 05, 2017 16:31
[2017-09-05] MEDS: hydrALAZINE HCL 20 MG/ML VIAL IV PUSH PRN ×2 (20:14→21:17)
[2017-09-05] MEDS: ATORVASTATIN 40 MG TAB PO SCH (20:37)
[2017-09-05] MEDS: DOXEPIN HCL 10 MG CAP PO SCH (20:37)
[2017-09-05] MEDS: LABETALOL HCL 100 MG/20 ML VIAL IV PUSH PRN (22:11)
[2017-09-06] VITALS (19 sets, daily range): BP systolic 130–150; BP diastolic 61–65; PULSE 78–100; RESP 14–21; TEMP 98.6–99.7; O2SAT 97–100
[2017-09-06] MEDS: INSULIN NovoLIN REGULAR SUPPLEMENTAL SCALE SQ SCH ×5 (00:20→23:46)
[2017-09-06] MEDS: PROPOFOL 1000 MG/100 ML INJ 100 ML IV PRN ×7 (00:48→21:05)
[2017-09-06 01:12] LABS: BLOOD GAS BASE EXCESS 0.6 mmol/L (-2-2); BLOOD GAS CARBOXYHEMOGLOBIN 1.3 % (0-4); BLOOD GAS HCO3 23 mmol/L (22-26); BLOOD GAS O2 HGB SATURATION 94 % (90-100); BLOOD GAS OXYGEN CONTENT 14.3 Vol % (12.0-20.0); BLOOD GAS PCO2 26 mmHg (38-42); BLOOD GAS PO2 79 mmHg (61-120); BLOOD GAS TOTAL HGB 10.8 G/DL (12.0-16.0); TEMP CORR TO 98.6
[2017-09-06 01:13] LABS: CRITICAL VALUE YES; OXYGEN DEVICE VENTILATOR; VENT SETTINGS SEE COMMENTS
[2017-09-06 01:14] LABS: DRAW SITE ART LINE; FIO2 30 %; STAT NO
[2017-09-06] MEDS: niCARdipine INJ 25 MG in SODIUM CHLOR 0.9% 250 ML INJ 240 ML IV PRN ×13 (01:39→23:47)
[2017-09-06] MEDS: CHLORHEXIDINE GLUCONATE 2 % 1 PACK (2 CLOTHS) TOP SCH (04:00)
[2017-09-06] MEDS: RESP: ALBUTEROL 2.5 MG/IPRATROPIUM 0.5 MG NEB (SCH) NEB ×4 (04:05→21:51)
[2017-09-06] MEDS: LABETALOL HCL 100 MG/20 ML VIAL IV PUSH PRN ×4 (04:15→22:46)
[2017-09-06] MEDS: fentaNYL DRIP 250 ML IV PRN ×2 (04:23→19:36)
[2017-09-06 05:54] LABS: BLOOD GAS BASE EXCESS 0.1 mmol/L (-2-2); BLOOD GAS CARBOXYHEMOGLOBIN 1.2 % (0-4); BLOOD GAS HCO3 23 mmol/L (22-26); BLOOD GAS METHEMOGLOBIN 1.1 % (0-2); BLOOD GAS O2 HGB SATURATION 94 % (90-100); BLOOD GAS PCO2 28 mmHg (38-42); BLOOD GAS PO2 80 mmHg (61-120); BLOOD GAS TOTAL HGB 9.8 G/DL (12.0-16.0); TEMP CORR TO 98.6
[2017-09-06 05:55] LABS: CRITICAL VALUE YES; DRAW SITE ART LINE; FIO2 30 %; OXYGEN DEVICE VENTILATOR
[2017-09-06 05:56] LABS: STAT NO
[2017-09-06] MEDS: ARTIFICIAL TEARS OPTH SOLN 15 ML BTL EACH EYE SCH ×3 (06:10→21:27)
[2017-09-06] MEDS: ISOSORBIDE DINITRATE 10 MG TAB PO SCH ×3 (06:11→21:27)
[2017-09-06] MEDS: CHLORHEXIDINE 0.12% (ORAL KIT) 15 ML CUP MT SCH ×2 (08:00→20:17)
--- NOTE | 2017-09-06 08:09 | HHI.CCPN ---
Subjective Remarks/Hospital Course 57-year-old AA female . Date of admission 08/30/2017. Past medical history includes schizoaffective/bipolar, depression, seizure disorder, hypertension, dyslipidemia, diabetes and allergic rhinitis. She is not on any blood thinners or aspirin. This patient was walking from [place] in approximately 6 AM this morning when she suffered a fall and landed on the right side of her face.. She states she slipped in the wet grass hitting her face on the concrete. No loss of consciousness. Not seizure activity noted. Not tongue biting. No incontinence of stool or urine. 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 Patient states that she's been having a headache and right-sided facial pain since. 08/30 CT of the brain showed a right frontotemporal subdural hematoma 1.6 cm with a 3 mm right to left shift. Maxillofacial CT revealed a nondisplaced right nasal fracture. CT spine negative. CBC showed normocytic anemia. BMP is pending. Elevated PTT coags at 33. Patient was loaded with 500 mg levetiracetam, given as needed for elevated blood pressure stabilized in the ED. Neurosurgical consultation was requested with Dr. Aiken. 08/31: Afebrile. CT brain revealed increased diameter right-sided subdural hematoma up to 1.9 cm. Shift is 1 mm right to left. Positive headache. No seizure activity. No real focal neurological deficits. 09/01: Patient subjective a weak left upper and lower extremity greater than right. Mumbling words. Stat CT brain revealed 2.6 cm image right intraparenchymal hemorrhage on the right temporal parietal region, 0.9 cm right cerebellar hemorrhage and bilateral subarachnoid hemorrhage convex's. Notified Dr. Aiken. Patient was intubated for airway protection and central line placed for hypertonic saline 09/02: Tmax 99.9. Improved subarachnoid hemorrhage. Stable right intraparenchymal hemorrhages. Potassium and phosphorus been replaced. No bowel movement. Subjective 09/03: Currently afebrile. Remains on propofol and fentanyl drips for sedation. Tolerating tube feeds at goal. Arousable with open eyes but not following commands currently. 09/04: Remains sedated, orally intubated on mechanical ventilation. Tolerating tube feeds. 09/05: Remains sedated, orally intubated on mechanical ventilation. Tolerating tube feeds. 09/06: Breathes over vent despite sedation. Withdraws limbs. Objective Vital Signs Date Time Temp Pulse Resp B/P (MAP) Pulse Ox O2 Delivery O2 Flow Rate FiO2 09/06/17 06:42 85 136/64 09/06/17 04:05 100 30 09/06/17 04:00 99.6 20 09/04/17 07:00 Mechanical Ventilator Intake and Output 09/06/17 09/06/17 09/07/17 08:00 16:00 00:00 Intake Total 2037 ml Output Total 2700 ml Balance -663 ml Result Diagram: 09/05/17 0505 09/05/17 0505 Other Results Laboratory Tests Test 09/06/17 00:55 09/06/17 05:37 Blood Gas Puncture Site ART LINE ART LINE Blood Gas Patient Temperature 98.6 98.6 Blood Gas HCO3 23 mmol/L (22-26) 23 mmol/L (22-26) Blood Gas Base Excess 0.6 mmol/L (-2-2) 0.1 mmol/L (-2-2) Blood Gas Oxygen Saturation 94 % (90-100) 94 % (90-100) Arterial Blood pH 7.55 (7.380-7.420) 7.52 (7.380-7.420) Arterial Blood Partial Pressure CO2 26 mmHg (38-42) 28 mmHg (38-42) Arterial Blood Partial Pressure O2 79 mmHg (61-120) 80 mmHg (61-120) Arterial Blood Oxygen Content 14.3 Vol % (12.0-20.0) 13.0 Vol % (12.0-20.0) Arterial Blood Carboxyhemoglobin 1.3 % (0-4) 1.2 % (0-4) Arterial Blood Methemoglobin 1.0 % (0-2) 1.1 % (0-2) Blood Gas Hemoglobin 10.8 G/DL (12.0-16.0) 9.8 G/DL (12.0-16.0) Oxygen Delivery Device VENTILATOR VENTILATOR Blood Gas Ventilator Setting SEE COMMENTS SEE COMMENT Blood Gas Inspired Oxygen 30 % 30 % Imaging Last Impressions Chest X-Ray 09/03/17 0600 Signed Impressions: Service Date/Time: Sunday, September 03, 2017 04:42 - CONCLUSION: 1. Bibasilar atelectasis, slightly improved in the right lower lobe but slightly worsened left lower lobe. Fantasma Miller MD Head CT 09/02/17 0600 Signed Impressions: Service Date/Time: Saturday, September 02, 2017 04:41 - CONCLUSION: 1. Mild interval improvement in subarachnoid hemorrhage over the parietal convexities. 2. Stable intraparenchymal hemorrhage in the right parietal lobe and right cerebellar hemisphere. 3. The subdural drainage catheter remains in place with no residual subdural hematoma. 4. No new hemorrhage or mass effect. Tyree Wise MD Abdomen X-Ray 09/01/17 0000 Signed Impressions: Service Date/Time: Friday, September 01, 2017 18:29 - CONCLUSION: Nasogastric tube coiled in the stomach with the tip projecting towards the GE junction. Migue Cuenca Jr., MD Maxillofacial CT 08/30/17 0000 Signed Impressions: Service Date/Time: August 15:13 - CONCLUSION: 1. There is a minimally depressed right nasal bone fracture with adjacent soft tissue swelling. No other fracture is visualized. 2. Please refer to head CT report for description of the right subdural hematoma. Nacho Buckley MD Lumbar Spine CT 08/30/17 0000 Signed Impressions: Service Date/Time: August 17:59 - CONCLUSION: Negative examination. Alec Latham MD Cervical Spine CT 08/30/17 0000 Signed Impressions: Service Date/Time: August 15:12 - CONCLUSION: 1. No acute fracture or subluxation. Skinny Muñiz MD Objective Remarks GENERAL: 57-year-old AA female, resting in bed orotracheally intubated SKIN: Warm and dry. Abrasions to the right cheek and chin with evolving ecchymoses HEAD: Status post right craniotomy with subdural, scalp drain in place EYES: Pupils equal and round about 3 mm bilaterally and reactive. Right eyelid swollen, protuberant globe. No scleral icterus. No injection or drainage. ENT: No nasal bleeding or discharge. Mucous membranes pink and moist. NECK: Trachea midline. Orally intubated. CARDIOVASCULAR: Tachycardia, RR. S1, S2. No S4. Without murmur RESPIRATORY: Clear to auscultation. Breath sounds equal bilaterally. Nio adventitious sounds. GASTROINTESTINAL: Abdomen soft, non-tender, nondistended. Bowel sounds are sluggish but appreciated MUSCULOSKELETAL: Extremities without significant peripheral edema. No obvious deformities. Well perfused. NEUROLOGICAL: Currently sedated on propofol and fentanyl drips. Eyes open. Withdraws to pain bilateral upper and lower extremities. Not following commands Date of Insertion: Sep 01, 2017 Line: Central Venous Catheter Side: Left Location: Internal, Jugular A/P Assessment and Plan Neuro/Psych: Postop day 3 right craniotomy with evacuation of subdural hematoma 2.6 cm right parietal/temporal intracranial hemorrhage, 0.9 cm right subdural hemorrhage and bilateral subarachnoid hemorrhage Right subdural hematoma - 1.6 cm fronto temporal with a 3 mm right to left shift Right closed nondisplaced nasal fracture Schizoaffective disorder Bipolar disorder Depression Seizure disorder NOS Propofolfentanyl drips for sedation/analgesia while intubated Goal of RASS -[address] brain 08/30 revealed a right frontal temporal subdural hematoma 1.6 cm thickness with a 3 mm right to left shift. Nondisplaced right nasal bone fracture. CT brain 08/31 revealed 2.6 cm right parietal intracranial hemorrhage, 0.9 cm right subdural hemorrhage and bilateral subarachnoid hemorrhage CT brain 09/01 revealed stable intraparenchymal hemorrhage improving subarachnoid hemorrhage at the convex CT Head 09/05 with stable areas of ICH/ SAH. EEG 08/31 revealed generalized slowing/encephalopathy. Disruption right side secondary to intraparenchymal hemorrhage. Levetiracetam 500 mg IV twice a day for seizure prophylaxis 7 days Resumed home dose of valproic acid 250mg BID via OGT. Goal keep systolic blood pressure less than 140. Neurochecks Head of bed at 30 Stop hypertonic saline 09/05 per neurosurgery. Evaluated by Dr. Aiken/neurosurgery Continue doxepin 10 mg by mouth daily Holding loratadine 10 mg by mouth daily CV: Hypertension Dyslipidemia Continue metoprolol 25 mg daily for hypertension. Continue Prinivil 20 mg by mouth daily. Continue isosorbide mononitrate 30 mg by mouth daily but switch to isosorbide dinitrate 10 mg 3 times a day As needed labetalol, hydralazine, Nitropaste and nicardipine drip to keep systolic blood pressure less than 140 Continue atorvastatin 40 mg by mouth daily for dyslipidemia Resp: PRVC 16/1/5/40 Ventilator bundle Albuterol/after aerosols every 6 hours with albuterol aerosols every 2 hours prn dyspnea Spontaneous breathing trials daily Chest x-ray revealed bilateral lower lobe atelectasis left greater than right. GI: Continue tube feeding with vital 1.5 goal 50 cc an hour Famotidine for GI prophylaxis Docusate sodium/senna and polyethylene glycol twice a day for bowel regimen. Add lactulose and mineral oil 1 today and a one-time dose of 12 mg subcutaneous methylnaltrexone : Incontinence Porter catheter if indicated for accurate I's and O's in a critically ill patient Holding Tolterodine 2 mg by mouth daily. Resume when clinically indicated Endo: Diabetes History of hypothyroidism/thyroid nodules Holding metformin 1000 mg daily and Linagliptin 5 mg daily for diabetes. Sliding-scale insulin with Accu-Cheks to maintain euglycemia increase detemir 15 units twice a day Renal: History of renal cell carcinoma status post right nephrectomy KVO IVF 09/05 Monitor urine output Accurate I's and O's Follow-up ER BMP not completed Heme: Normocytic anemia Elevated PTT Thrombocytopenia Monitor CBC daily. Follow trends Does not meet transfusion thresholds at this time ID: Monitor for infection FEN: Hypophosphatemia Hypokalemia Replace electrolytes as clinically indicated per ICU electrolyte protocol. Recheck potassium and phosphorus at 1500 Holding cholecalciferol 1000 U daily. Resume when clinically indicated MSK: Osteoarthritis Physical therapy evaluate and treat Access -Left IJ CVL day #5 Prophylaxis - GI famotidine - DVT- SCD/holding pharmacological prophylaxis in light of subdural hematoma Patient remains critical with SDH, cerebral edema status post craniotomy Overall impression: Remains critically ill after evacuation of SDH. Unable to wean ventilator. Critical care 38 mins Mc Parrish MD Sep 06, 2017 08:09
[2017-09-06] MEDS: TOLTERODINE TARTRATE 2 MG CAP LA PO SCH (09:00)
[2017-09-06] MEDS: SODIUM CHLORIDE 0.9% FLUSH 10 ML FLUSH IV FLUSH SCH ×3 (09:00→20:17)
[2017-09-06] MEDS: INSULIN DETEMIR 100 UNITS/ML VIAL SQ SCH ×2 (09:00→20:18)
[2017-09-06] MEDS: POLYETHYLENE GLYCOL 17 GM PKG PO SCH ×2 (09:01→20:15)
[2017-09-06] MEDS: DOCUSATE SODIUM 100 MG/10 ML UDC PO SCH ×2 (09:01→20:15)
[2017-09-06] MEDS: LACTULOSE SYRUP 20 GM/30 ML CUP PO SCH ×2 (09:01→20:16)
[2017-09-06] MEDS: FUROSEMIDE 40 MG TAB PO SCH (09:01)
[2017-09-06] MEDS: SENNOSIDES SYRUP 8.8 MG/5 ML CUP PO SCH ×2 (09:01→20:15)
[2017-09-06] MEDS: MUPIROCIN 2% OINT 1 APPLIC/GM SYR EACH NARE SCH ×2 (09:01→20:17)
[2017-09-06] MEDS: CHOLECALCIFEROL (VIT D3) 1000 UNIT TAB PO SCH (09:02)
[2017-09-06] MEDS: METOPROLOL TARTRATE 25 MG TAB PO SCH (09:02)
[2017-09-06] MEDS: LISINOPRIL 20 MG TAB PO SCH (09:02)
[2017-09-06] MEDS: levETIRAcetam INJ 500 MG in SODIUM CHLORIDE 0.9% INJ 100 ML IV SCH ×2 (09:03→20:16)
[2017-09-06] MEDS: VALPROIC ACID SYRUP 250 MG/5 ML UDC OG-TUBE SCH ×2 (09:04→20:16)
[2017-09-06] MEDS: hydrALAZINE HCL 20 MG/ML VIAL IV PUSH PRN (09:30)
[2017-09-06] MEDS: FAMOTIDINE 20 MG/2 ML VIAL IV PUSH SCH ×2 (11:00→23:02)
--- NOTE | 2017-09-06 16:27 | HHI.NSPN ---
(Carmen Chamberlain) Note Status Status: Progress Note (Carmen Chamberlain) Interval History Interval History This is a 57-year-old female who apparently is status post slip and fall around 6 AM this morning. She states she was on her way to [facility] she had some eggs when she slipped in the wet grass hitting her face on the concrete. No loss of consciousness. Not seizure activity noted. Not tongue biting. No incontinence of stool or urine. ..She took her eggs and milk and transported back home because she had to meet the maintenance advisor. Patient states that she' s been having a headache and right-sided facial pain since. She denies any chest pain, shortness of breath, change in vision, numbness or tingling anywhere , neck pain, back pain, loss or change in bowel or bladder, or being on any blood thinners. She is moving where both upper and lower extremities without any focal deficit. CT of the brain showed a right sided accurate subdural hematoma causing mass effect and midline shift. The subdural was hematoma 1.6 cm thick with a 3 mm right to left shift. Maxillofacial CT revealed a nondisplaced right nasal fracture. CT spine negative. Neurosurgical consultation was requested 09/01: Letahrgic today. Open eyes follows commands withn all [address] brain showed new frontal and post fossa bleed 09/02: remains intubated, off sedation she slightly opens eyes and moves all four extremities. EEG yesterday neg for seizures. 09/03: intubated, again off sedation reports to open her eyes and moves x 4, but not following commands 09/04: nursing reports minimal eye opening, moves x 4. intubated and sedated. 09/05: f/u CT Head completed, stable right temporal and cerebellar hemorrhage, no significant midline shift or mass effect. remains intubated and sedated. 09/06: remains intubated and well sedated for blood pressure control. (Carmen Chamberlain) Labs, Micro, & Vital Signs Results Date Time Temp Pulse Resp B/P (MAP) Pulse Ox O2 Delivery O2 Flow Rate FiO2 09/06/17 16:00 100 40 09/06/17 14:16 78 130/59 09/06/17 14:00 78 09/06/17 12:32 79 133/64 09/06/17 12:02 100 40 09/06/17 12:00 98.9 79 14 100 135/65 (88) 09/06/17 12:00 30 09/06/17 12:00 79 09/06/17 10:37 81 142/67 09/06/17 10:32 40 09/06/17 10:00 88 09/06/17 09:03 83 148/66 09/06/17 08:09 100 40 09/06/17 08:00 30 09/06/17 08:00 84 09/06/17 08:00 98.6 84 14 100 141/61 (87) 09/06/17 06:42 85 136/64 09/06/17 06:00 95 09/06/17 04:05 100 30 09/06/17 04:00 30 09/06/17 04:00 99.6 96 20 100 130/62 (84) 09/06/17 04:00 96 09/06/17 04:00 96 130/62 09/06/17 03:05 96 156/68 09/06/17 02:00 96 09/06/17 01:39 96 133/63 09/06/17 01:18 98 30 09/06/17 00:12 97 30 09/06/17 00:12 97 30 09/06/17 00:00 99.7 100 21 97 136/64 (88) 09/06/17 00:00 100 09/06/17 00:00 30 09/05/17 23:58 100 138/65 09/05/17 22:00 104 09/05/17 21:55 104 159/67 09/05/17 21:06 99 30 09/05/17 20:15 88 169/73 09/05/17 20:00 104 09/05/17 20:00 30 09/05/17 20:00 99.3 104 14 96 214/102 (139) 09/05/17 18:34 81 154/105 09/05/17 18:00 78 09/07/17 06:59 Output Total 300.0 ml Balance -300.0 ml Constitutional Vital Signs Date Time Temp Pulse Resp B/P (MAP) Pulse Ox O2 Delivery O2 Flow Rate FiO2 09/06/17 16:00 100 40 09/06/17 14:16 78 130/59 09/06/17 14:00 78 09/06/17 12:32 79 133/64 09/06/17 12:02 100 40 09/06/17 12:00 98.9 79 14 100 135/65 (88) 09/06/17 12:00 30 09/06/17 12:00 79 09/06/17 10:37 81 142/67 09/06/17 10:32 40 09/06/17 10:00 88 09/06/17 09:03 83 148/66 09/06/17 08:09 100 40 09/06/17 08:00 30 09/06/17 08:00 84 09/06/17 08:00 98.6 84 14 100 141/61 (87) 09/06/17 06:42 85 136/64 09/06/17 06:00 95 09/06/17 04:05 100 30 09/06/17 04:00 30 09/06/17 04:00 99.6 96 20 100 130/62 (84) 09/06/17 04:00 96 09/06/17 04:00 96 130/62 09/06/17 03:05 96 156/68 09/06/17 02:00 96 09/06/17 01:39 96 133/63 09/06/17 01:18 98 30 09/06/17 00:12 97 30 09/06/17 00:12 97 30 09/06/17 00:00 99.7 100 21 97 136/64 (88) 09/06/17 00:00 100 09/06/17 00:00 30 09/05/17 23:58 100 138/65 09/05/17 22:00 104 09/05/17 21:55 104 159/67 09/05/17 21:06 99 30 09/05/17 20:15 88 169/73 09/05/17 20:00 104 09/05/17 20:00 30 09/05/17 20:00 99.3 104 14 96 214/102 (139) 09/05/17 18:34 81 154/105 09/05/17 18:00 78 09/07/17 06:59 Output Total 300.0 ml Balance -300.0 ml (Carmen Chamberlain) Review of Systems ROS Limitations: Intubated (Carmen Chamberlain) Physical Exam Ms. Haider remains intubated and well sedated for blood pressure control. Cranial Nerves: Pupils 3-4 mm round, reactive to light. (Carmen Chamberlain) Medications Current Medications Current Medications Medications (Trade) Dose Ordered Sig/Christopher Route PRN Reason Start Time Stop Time Status Last Admin Dose Admin Sodium Chloride (NS Flush) 2 ml UNSCH PRN IV FLUSH FLUSH AFTER USING IV ACCESS 08/30/17 16:15 Sodium Chloride (NS Flush) 2 ml BID IV FLUSH 08/30/17 21:00 09/06/17 09:00 Ondansetron HCl (Zofran Inj) 4 mg Q6H PRN IV PUSH NAUSEA OR VOMITING 08/30/17 16:15 Albuterol Sulfate (Albuterol Neb) 2.5 mg Q2HR NEB PRN INH SOB/WHEEZING 08/30/17 16:15 Miscellaneous Information 1 Q361D XX 08/30/17 16:15 Chlorhexidine Gluconate (Chlorhexidine 2% Cloth) Taper DAILY@04 TOP 08/31/17 04:00 08/27/18 03:59 09/04/17 04:00 Chlorhexidine Gluconate (Chlorhexidine 2% Cloth) 3 pack UNSCH PRN TOP HYGIENIC CARE 08/30/17 16:15 Magnesium Hydroxide (Milk Of Magnana Liq) 30 ml Q12H PRN PO Mild constipation 08/30/17 16:15 Sennosides (Senokot) 17.2 mg Q12H PRN PO Moderate constipation 08/30/17 16:15 Bisacodyl (Dulcolax Supp) 10 mg DAILY PRN RECTAL SEVERE CONSITIPATION 08/30/17 16:15 Atorvastatin Calcium (Lipitor) 40 mg HS PO 08/30/17 21:00 09/05/17 20:37 Doxepin HCl (SINEquan) 10 mg HS PO 08/30/17 21:00 09/05/17 20:37 Furosemide (Lasix) 40 mg DAILY PO 08/31/17 09:00 09/06/17 09:01 Lisinopril (Prinivil) 20 mg DAILY PO 08/31/17 09:00 09/06/17 09:02 Metoprolol Tartrate (Lopressor) 25 mg DAILY PO 08/31/17 09:00 09/06/17 09:02 Levetriacetam 500 mg/Sodium Chloride 105 ml @ 420 mls/hr Q12HR IV 08/30/17 21:00 09/06/17 09:03 Dextrose (D50w (Vial) Inj) 50 ml UNSCH PRN IV PUSH HYPOGLYCEMIA-SEE COMMENTS 08/30/17 16:15 Glucagon (Glucagon Inj) 1 mg UNSCH PRN OTHER HYPOGLYCEMIA-SEE COMMENTS 08/30/17 16:15 Labetalol HCl (Trandate Inj) 10 mg Q1HR PRN IV PUSH SBP>150, DBP>90, HR>65 08/30/17 16:15 09/06/17 09:10 Hydralazine HCl (Apresoline Inj) 10 mg Q1HR PRN IV PUSH SBP>150, DBP>90 08/30/17 16:15 09/06/17 09:30 Nitroglycerin (Nitroglycerin 2% Oint) 2 inch Q6H PRN TOPICAL SBP>150, DBP>90 08/30/17 16:15 Calcium Gluconate (Calcium Gluconate Inj) 1 gm UNSCH PRN IV SEE LABEL COMMENTS 08/31/17 13:30 Acetaminophen/ Hydrocodone Bitart ([place] 10-325 Mg) 1 tab Q4H PRN PO PAIN SCALE 1 TO 5 08/31/17 13:30 Future Hold Acetaminophen/ Hydrocodone Bitart ([place] 10-325 Mg) 2 tab Q4H PRN PO PAIN SCALE 6 TO 10 08/31/17 13:30 Future Hold Morphine Sulfate (Morphine Inj) 2 mg Q2H PRN IV PUSH PAIN SCALE 1 TO 6 08/31/17 13:30 09/01/17 06:15 Morphine Sulfate (Morphine Inj) 4 mg Q2H PRN IV PUSH PAIN SCALE 7 TO 10 08/31/17 13:30 Cholecalciferol (Vitamin D3) 1,000 units DAILY PO 09/01/17 09:00 09/06/17 09:02 Tolterodine Tartrate (Detrol La) 2 mg DAILY PO 09/01/17 09:00 09/04/17 08:50 Patient Own Medication PT OWN MED: LINAGLIP... DAILY PO 09/01/17 09:00 Future Hold Mupirocin (Bactroban Nasal 2% Oint) Taper BID EACH NARE 09/01/17 10:00 08/28/18 09:59 09/06/17 09:01 Chlorhexidine Gluconate (Peridex 0.12% Liq) 15 ml BID@08,20 MT 09/01/17 20:00 09/06/17 08:00 Propofol 100 ml @ 2.79 mls/hr TITRATE PRN IV SEDATION 09/01/17 09:45 09/06/17 14:33 Nicardipine HCl 25 mg/Sodium Chloride 250 ml @ 50 mls/hr TITRATE PRN IV Blood pressure management 09/01/17 10:00 09/06/17 14:16 Sodium Chloride (NS Flush) DAILY IV FLUSH 09/01/17 10:30 09/03/17 08:25 Sodium Chloride (NS Flush) UNSCH PRN IV FLUSH SEE PROTOCOL 09/01/17 10:30 Artificial Tears (Tears Naturale Opth Soln) 1 drop Q8HR EACH EYE 09/01/17 14:00 09/06/17 14:00 Famotidine (Pepcid Inj) 20 mg Q12H IV PUSH 09/01/17 11:00 09/06/17 11:00 Isosorbide Dinitrate (Isordil) 10 mg Q8HR PO 09/01/17 14:00 09/06/17 14:00 Potassium Chloride 100 ml @ 50 mls/hr Q2H PRN IV For Potassium 2.8 - 3.2 mEq/L 09/02/17 06:30 Potassium Chloride 100 ml @ 50 mls/hr Q2H PRN IV For Potassium 2.8 - 3.2 mEq/L 09/02/17 06:30 Potassium Bicarb/ Potassium Chloride (K-Lyte Cl Eff) 50 meq UNSCH PRN PO For Potassium 3.3 - 3.5 mEq/L 09/02/17 06:30 Potassium Chloride 100 ml @ 25 mls/hr UNSCH PRN IV For Potassium 3.3 - 3.5 mEq/L 09/02/17 06:30 09/05/17 06:00 Potassium Chloride 100 ml @ 50 mls/hr Q2H PRN IV For Potassium 3.3 - 3.5 mEq/L 09/02/17 06:30 Magnesium Sulfate 4 gm/Sodium Chloride 100 ml @ 50 mls/hr UNSCH PRN IV For Magnesium 0.9 - 1.1 mg/dL 09/02/17 06:30 Magnesium Oxide (Mag-Ox) 800 mg UNSCH PRN PO For Magnesium 1.2 - 1.6 mg/dL 09/02/17 06:30 Magnesium Sulfate 2 gm/Sodium Chloride 100 ml @ 50 mls/hr UNSCH PRN IV For Magnesium 1.2 - 1.6 mg/dL 09/02/17 06:30 Potassium Phosphate (K-Phos) 2,000 mg Q4H PRN PO For Phosphorus < 2.5 mg/dL 09/02/17 06:30 Sodium Phosphate 30 mmol/Sodium Chloride 250 ml @ 42 mls/hr UNSCH PRN IV For Phosphorus < 2.5 mg/dL 09/02/17 06:30 Potassium Phosphate (K-Phos) 2,000 mg UNSCH PRN PO/TUBE SEE LABEL COMMENTS 09/02/17 06:30 Potassium Phosphate 30 mmol/ Sodium Chloride 260 ml @ 42 mls/hr UNSCH PRN IV SEE LABEL COMMENTS 09/02/17 06:30 09/02/17 08:28 Docusate Sodium (Colace Liq) 100 mg Q12HR PO 09/02/17 09:00 09/06/17 09:01 Sennosides (Senna Liq) 8.8 mg BID PO 09/02/17 09:00 09/06/17 09:01 Polyethylene Glycol (Miralax) 17 gm BID PO 09/02/17 09:00 09/06/17 09:01 Acetaminophen (Tylenol 650 Mg/ 20 ml Liq) 650 mg Q6H PRN PO fever 09/02/17 07:15 09/03/17 20:16 Sodium Chloride 500 ml @ 10 mls/hr CONTINUOUS IV 09/02/17 11:45 09/03/17 17:47 Lactulose (Lactulose Liq) 30 ml BID PO 09/03/17 08:00 09/06/17 09:01 Insulin Human Regular (NovoLIN R SUPPLEMENTAL SCALE) 1 Q6HR SQ 09/03/17 12:00 09/06/17 12:00 Albuterol/ Ipratropium (Duoneb Neb) 1 ampule Q6HR NEB NEB 09/03/17 10:00 09/06/17 15:56 Valproic Acid (Depakene Liq) 250 mg BID OG-TUBE 09/04/17 11:00 09/06/17 09:04 Fentanyl Citrate 250 ml @ 5 mls/hr TITRATE PRN IV SEDATION 09/05/17 16:45 09/06/17 04:23 Insulin Detemir (Levemir Inj) 15 units Q12HR SQ 09/06/17 09:00 09/06/17 09:00 (Carmen Chamberlain) Medical Decision Making MDM Remarks 57 y/o female TBI following slip and fall on wet grass, she hit her face on concrete sidewalk, CT Brain on arrival with right subdural hematoma, diffuse SAH she underwent right side craniotomy for evacuation of subdural hematoma on 08/31 respiratory failure, reintubated 09/01/17 f/u CT Head 09/02 with improvement of right subdural hematoma, stable right temporal/parietal intraparenchymal hematoma, small right cerebellar contusion, and diffuse SAH, no new ICH f/u CT Head 09/05 stable to improving right temporal/parietal and cerebellar ICH EEG 09/01 neg for seizure uncontrolled hypertension requiring sedatives (Carmen Chamberlain) Plan Plan Remarks cont critical care management, cont sedation and vent weaning as tolerated, pt remains sedated for bp control serial neuro checks, and follow up exam dw Dr. Aiken (Carmen Chamberlain) Attending Statement The exam, history, and the medical decision-making described in the above note were completed with the assistance of the mid-level provider. I reviewed and agree with the findings presented. I attest that I had a [id number] encounter with the patient on the same day, and personally performed and documented my assessment and findings in the medical record. (Yannick Aiken MD) Carmen Chamberlain Sep 06, 2017 16:27 Yannick Aiken MD Sep 09, 2017 22:19
[2017-09-06] MEDS: ATORVASTATIN 40 MG TAB PO SCH (20:16)
[2017-09-06] MEDS: DOXEPIN HCL 10 MG CAP PO SCH (20:18)
[2017-09-06 21:23] LABS: BICARBONATE 22.5 MEQ/L (21.0-32.0); POTASSIUM 3.3 MEQ/L (3.5-5.1)
[2017-09-06] MEDS: POTASSIUM CHLOR 40 MEQ PREMIX 100 ML IV PRN (21:38)
[2017-09-07] VITALS (17 sets, daily range): BP systolic 125–154; BP diastolic 64–69; PULSE 86–100; RESP 14–24; TEMP 98.9–100.1; O2SAT 93–100
[2017-09-07] MEDS: PROPOFOL 1000 MG/100 ML INJ 100 ML IV PRN ×5 (01:02→15:43)
[2017-09-07] MEDS: niCARdipine INJ 25 MG in SODIUM CHLOR 0.9% 250 ML INJ 240 ML IV PRN ×4 (01:53→15:44)
--- NOTE | 2017-09-07 01:57 | HHI.CCPN ---
Subjective Remarks/Hospital Course 57-year-old AA female . Date of admission 08/30/2017. Past medical history includes schizoaffective/bipolar, depression, seizure disorder, hypertension, dyslipidemia, diabetes and allergic rhinitis. She is not on any blood thinners or aspirin. This patient was walking from [employer] in approximately 6 AM this morning when she suffered a fall and landed on the right side of her face.. She states she slipped in the wet grass hitting her face on the concrete. No loss of consciousness. Not seizure activity noted. Not tongue biting. No incontinence of stool or urine. She took her eggs and milk and transported back home because she had to meet the line maintenance technician. Patient states that she's been having a headache and right-sided facial pain since. 08/30 CT of the brain showed a right frontotemporal subdural hematoma 1.6 cm with a 3 mm right to left shift. Maxillofacial CT revealed a nondisplaced right nasal fracture. CT spine negative. CBC showed normocytic anemia. BMP is pending. Elevated PTT coags at 33. Patient was loaded with 500 mg levetiracetam, given as needed for elevated blood pressure stabilized in the ED. Neurosurgical consultation was requested with Dr. Aiken. 08/31: Afebrile. CT brain revealed increased diameter right-sided subdural hematoma up to 1.9 cm. Shift is 1 mm right to left. Positive headache. No seizure activity. No real focal neurological deficits. 09/01: Patient subjective a weak left upper and lower extremity greater than right. Mumbling words. Stat CT brain revealed 2.6 cm image right intraparenchymal hemorrhage on the right temporal parietal region, 0.9 cm right cerebellar hemorrhage and bilateral subarachnoid hemorrhage convex's. Notified Dr. Aiken. Patient was intubated for airway protection and central line placed for hypertonic saline 09/02: Tmax 99.9. Improved subarachnoid hemorrhage. Stable right intraparenchymal hemorrhages. Potassium and phosphorus been replaced. No bowel movement. Subjective 09/03: Currently afebrile. Remains on propofol and fentanyl drips for sedation. Tolerating tube feeds at goal. Arousable with open eyes but not following commands currently. 09/04: Remains sedated, orally intubated on mechanical ventilation. Tolerating tube feeds. 09/05: Remains sedated, orally intubated on mechanical ventilation. Tolerating tube feeds. 09/06: Breathes over vent despite sedation. Withdraws limbs. 09/07: Remains sedated, orally intubated on mechanical ventilation. Tolerating tube feeds. Objective Vital Signs Date Time Temp Pulse Resp B/P (MAP) Pulse Ox O2 Delivery O2 Flow Rate FiO2 09/07/17 00:00 100.0 88 14 100 144/68 (93) 09/07/17 00:00 30 09/06/17 20:35 Ventilator Result Diagram: 09/05/17 0505 09/06/172039 Other Results Laboratory Tests Test 09/06/17 05:37 Blood Gas Puncture Site ART LINE Blood Gas Patient Temperature 98.6 Blood Gas HCO3 23 mmol/L (22-26) Blood Gas Base Excess 0.1 mmol/L (-2-2) Blood Gas Oxygen Saturation 94 % (90-100) Arterial Blood pH 7.52 (7.380-7.420) Arterial Blood Partial Pressure CO2 28 mmHg (38-42) Arterial Blood Partial Pressure O2 80 mmHg (61-120) Arterial Blood Oxygen Content 13.0 Vol % (12.0-20.0) Arterial Blood Carboxyhemoglobin 1.2 % (0-4) Arterial Blood Methemoglobin 1.1 % (0-2) Blood Gas Hemoglobin 9.8 G/DL (12.0-16.0) Oxygen Delivery Device VENTILATOR Blood Gas Ventilator Setting SEE COMMENT Blood Gas Inspired Oxygen 30 % Imaging Last Impressions Chest X-Ray 09/03/17 0600 Signed Impressions: Service Date/Time: Sunday, September 03, 2017 04:42 - CONCLUSION: 1. Bibasilar atelectasis, slightly improved in the right lower lobe but slightly worsened left lower lobe. Fantasma Miller MD Head CT 09/02/17 0600 Signed Impressions: Service Date/Time: Saturday, September 02, 2017 04:41 - CONCLUSION: 1. Mild interval improvement in subarachnoid hemorrhage over the parietal convexities. 2. Stable intraparenchymal hemorrhage in the right parietal lobe and right cerebellar hemisphere. 3. The subdural drainage catheter remains in place with no residual subdural hematoma. 4. No new hemorrhage or mass effect. Tyree Wise MD Abdomen X-Ray 09/01/17 0000 Signed Impressions: Service Date/Time: Friday, September 01, 2017 18:29 - CONCLUSION: Nasogastric tube coiled in the stomach with the tip projecting towards the GE junction. Migue Cuenca Jr., MD Maxillofacial CT 08/30/17 0000 Signed Impressions: Service Date/Time: August 15:13 - CONCLUSION: 1. There is a minimally depressed right nasal bone fracture with adjacent soft tissue swelling. No other fracture is visualized. 2. Please refer to head CT report for description of the right subdural hematoma. Nacho Buckley MD Lumbar Spine CT 08/30/17 0000 Signed Impressions: Service Date/Time: August 17:59 - CONCLUSION: Negative examination. Alec Latham MD Cervical Spine CT 08/30/17 0000 Signed Impressions: Service Date/Time: August 15:12 - CONCLUSION: 1. No acute fracture or subluxation. Skinny Muñiz MD Objective Remarks GENERAL: 57-year-old AA female, resting in bed orotracheally intubated SKIN: Warm and dry. Abrasions to the right cheek and chin with evolving ecchymoses HEAD: Status post right craniotomy with subdural, scalp drain in place EYES: Pupils equal and round about 3 mm bilaterally and reactive. Right eyelid swollen, protuberant globe. No scleral icterus. No injection or drainage. ENT: No nasal bleeding or discharge. Mucous membranes pink and moist. NECK: Trachea midline. Orally intubated. CARDIOVASCULAR: Tachycardia, RR. S1, S2. No S4. Without murmur RESPIRATORY: Clear to auscultation. Breath sounds equal bilaterally. Nio adventitious sounds. GASTROINTESTINAL: Abdomen soft, non-tender, nondistended. Bowel sounds are sluggish but appreciated MUSCULOSKELETAL: Extremities without significant peripheral edema. No obvious deformities. Well perfused. NEUROLOGICAL: Currently sedated on propofol and fentanyl drips. Eyes open. Withdraws to pain bilateral upper and lower extremities. Not following commands Date of Insertion: Sep 01, 2017 Line: Central Venous Catheter Side: Left Location: Internal, Jugular A/P Assessment and Plan Neuro/Psych: s/p right craniotomy with evacuation of subdural hematoma 2.6 cm right parietal/temporal intracranial hemorrhage, 0.9 cm right subdural hemorrhage and bilateral subarachnoid hemorrhage Right subdural hematoma - 1.6 cm fronto temporal with a 3 mm right to left shift Right closed nondisplaced nasal fracture Schizoaffective disorder Bipolar disorder Depression Seizure disorder NOS Propofolfentanyl drips for sedation/analgesia while intubated Goal of RASS -[address] brain 08/30 revealed a right frontal temporal subdural hematoma 1.6 cm thickness with a 3 mm right to left shift. Nondisplaced right nasal bone fracture. CT brain 08/31 revealed 2.6 cm right parietal intracranial hemorrhage, 0.9 cm right subdural hemorrhage and bilateral subarachnoid hemorrhage CT brain 09/01 revealed stable intraparenchymal hemorrhage improving subarachnoid hemorrhage at the convex CT Head 09/05 with stable areas of ICH/ SAH. EEG 08/31 revealed generalized slowing/encephalopathy. Disruption right side secondary to intraparenchymal hemorrhage. Levetiracetam 500 mg IV twice a day for seizure prophylaxis 7 days Resumed home dose of valproic acid 250mg BID via OGT. Goal keep systolic blood pressure less than 140. Neurochecks Head of bed at 30 Stop hypertonic saline 09/05 per neurosurgery. Evaluated by Dr. Aiken/neurosurgery Continue doxepin 10 mg by mouth daily Holding loratadine 10 mg by mouth daily CV: Hypertension Dyslipidemia Increase metoprolol 25 mg via OGT Q6hrly for hypertension. Increase Prinivil to 30 mg by mouth daily. Continue isosorbide mononitrate 30 mg by mouth daily but switch to isosorbide dinitrate 10 mg 3 times a day As needed labetalol, hydralazine, Nitropaste and nicardipine drip to keep systolic blood pressure less than 140. Added Norvasc 10 mg via OG tube daily on 09/07. Continue atorvastatin 40 mg by mouth daily for dyslipidemia Resp: PRVC 16/500/11/16/39 Ventilator bundle Albuterol/after aerosols every 6 hours with albuterol aerosols every 2 hours prn dyspnea Spontaneous breathing trials daily Chest x-ray revealed bilateral lower lobe atelectasis left greater than right. GI: Continue tube feeding with vital 1.5 goal 50 cc an hour Famotidine for GI prophylaxis Docusate sodium/senna and polyethylene glycol twice a day for bowel regimen. Add lactulose and mineral oil 1 today and a one-time dose of 12 mg subcutaneous methylnaltrexone : Incontinence Porter catheter if indicated for accurate I's and O's in a critically ill patient Holding Tolterodine 2 mg by mouth daily. Resume when clinically indicated Endo: Diabetes History of hypothyroidism/thyroid nodules Holding metformin 1000 mg daily and Linagliptin 5 mg daily for diabetes. Sliding-scale insulin with Accu-Cheks to maintain euglycemia increase detemir 15 units twice a day Renal: History of renal cell carcinoma status post right nephrectomy KVO IVF 09/05 Monitor urine output Accurate I's and O's Follow-up ER BMP not completed Heme: Normocytic anemia Elevated PTT Thrombocytopenia Monitor CBC daily. Follow trends Does not meet transfusion thresholds at this time ID: Monitor for infection FEN: Hypophosphatemia Hypokalemia Replace electrolytes as clinically indicated per ICU electrolyte protocol. Recheck potassium and phosphorus at 1500 Holding cholecalciferol 1000 U daily. Resume when clinically indicated MSK: Osteoarthritis Physical therapy evaluate and treat Access -Left IJ CVL day #5 Prophylaxis - GI famotidine - DVT- SCD/holding pharmacological prophylaxis in light of subdural hematoma Patient remains critical with SDH, cerebral edema status post craniotomy Overall impression: Remains critically ill after evacuation of SDH. Unable to wean ventilator. Critical care 35 mins Skyler Taylor MD Sep 07, 2017 01:57
[2017-09-07] MEDS ORDERED: PILL SPLITTER OTHER PRN (02:00)
[2017-09-07] MEDS: CHLORHEXIDINE GLUCONATE 2 % 1 PACK (2 CLOTHS) TOP SCH (04:00)
[2017-09-07] MEDS: RESP: ALBUTEROL 2.5 MG/IPRATROPIUM 0.5 MG NEB (SCH) NEB ×2 (04:16→08:01)
[2017-09-07] MEDS: METOPROLOL TARTRATE 25 MG TAB PO SCH ×4 (05:17→23:15)
[2017-09-07] MEDS: ARTIFICIAL TEARS OPTH SOLN 15 ML BTL EACH EYE SCH ×3 (05:17→20:48)
[2017-09-07] MEDS: ISOSORBIDE DINITRATE 10 MG TAB PO SCH ×3 (05:17→20:48)
[2017-09-07 05:40] LABS: BICARBONATE 22.1 MEQ/L (21.0-32.0); POTASSIUM 3.7 MEQ/L (3.5-5.1)
[2017-09-07] MEDS: INSULIN NovoLIN REGULAR SUPPLEMENTAL SCALE SQ SCH ×4 (05:49→23:22)
[2017-09-07] MEDS: hydrALAZINE HCL 20 MG/ML VIAL IV PUSH PRN (05:51)
[2017-09-07] MEDS: CHLORHEXIDINE 0.12% (ORAL KIT) 15 ML CUP MT SCH ×2 (08:00→20:22)
--- NOTE | 2017-09-07 08:55 | HHI.NSPN ---
(Carmen Chamberlain) Note Status Status: Progress Note (Carmen Chamberlain) Interval History Interval History This is a 57-year-old female who apparently is status post slip and fall around 6 AM this morning. She states she was on her way to [facility] she had some eggs when she slipped in the wet grass hitting her face on the concrete. No loss of consciousness. Not seizure activity noted. Not tongue biting. No incontinence of stool or urine. ..She took her eggs and milk and transported back home because she had to meet the maintenance repairman. Patient states that she' s been having a headache and right-sided facial pain since. She denies any chest pain, shortness of breath, change in vision, numbness or tingling anywhere , neck pain, back pain, loss or change in bowel or bladder, or being on any blood thinners. She is moving where both upper and lower extremities without any focal deficit. CT of the brain showed a right sided accurate subdural hematoma causing mass effect and midline shift. The subdural was hematoma 1.6 cm thick with a 3 mm right to left shift. Maxillofacial CT revealed a nondisplaced right nasal fracture. CT spine negative. Neurosurgical consultation was requested 09/01: Letahrgic today. Open eyes follows commands withn all [address] brain showed new frontal and post fossa bleed 09/02: remains intubated, off sedation she slightly opens eyes and moves all four extremities. EEG yesterday neg for seizures. 09/03: intubated, again off sedation reports to open her eyes and moves x 4, but not following commands 09/04: nursing reports minimal eye opening, moves x 4. intubated and sedated. 09/05: f/u CT Head completed, stable right temporal and cerebellar hemorrhage, no significant midline shift or mass effect. remains intubated and sedated. 09/06: remains intubated and well sedated for blood pressure control. 09/07: sedation lowered, eyes open, moving legs intermittently?to command. did not follow in the upper extremities. (Carmen Chamberlain) Labs, Micro, & Vital Signs Results Date Time Temp Pulse Resp B/P (MAP) Pulse Ox O2 Delivery O2 Flow Rate FiO2 09/07/17 08:01 98 40 09/07/17 06:00 99 09/07/17 04:12 97 40 09/07/17 04:00 98 09/07/17 04:00 30 09/07/17 04:00 100.1 98 24 97 146/66 (92) 09/07/17 04:00 98 146/66 09/07/17 02:00 96 09/07/17 01:53 96 152/62 09/07/17 00:00 100.0 88 14 100 144/68 (93) 09/07/17 00:00 88 09/07/17 00:00 30 09/06/17 23:47 88 139/60 09/06/17 23:44 100 40 09/06/17 22:00 92 09/06/17 21:29 83 144/64 09/06/17 20:35 100 Ventilator 40 09/06/17 20:35 100 40 09/06/17 20:35 100 40 09/06/17 20:00 30 09/06/17 20:00 82 09/06/17 20:00 99.3 82 14 100 150/64 (92) 09/06/17 19:37 83 148/72 09/06/17 18:30 80 134/61 09/06/17 18:00 80 09/06/17 16:28 86 148/66 09/06/17 16:00 99.1 86 16 100 141/63 (89) 09/06/17 16:00 30 09/06/17 16:00 100 40 09/06/17 16:00 80 09/06/17 14:16 78 130/59 09/06/17 14:00 78 09/06/17 12:32 79 133/64 09/06/17 12:02 100 40 09/06/17 12:00 98.9 79 14 100 135/65 (88) 09/06/17 12:00 30 09/06/17 12:00 79 09/06/17 10:37 81 142/67 09/06/17 10:32 40 09/06/17 10:00 88 09/06/17 09:03 83 148/66 Constitutional Vital Signs Date Time Temp Pulse Resp B/P (MAP) Pulse Ox O2 Delivery O2 Flow Rate FiO2 09/07/17 08:01 98 40 09/07/17 06:00 99 09/07/17 04:12 97 40 09/07/17 04:00 98 09/07/17 04:00 30 09/07/17 04:00 100.1 98 24 97 146/66 (92) 09/07/17 04:00 98 146/66 09/07/17 02:00 96 09/07/17 01:53 96 152/62 09/07/17 00:00 100.0 88 14 100 144/68 (93) 09/07/17 00:00 88 09/07/17 00:00 30 09/06/17 23:47 88 139/60 09/06/17 23:44 100 40 09/06/17 22:00 92 09/06/17 21:29 83 144/64 09/06/17 20:35 100 Ventilator 40 09/06/17 20:35 100 40 09/06/17 20:35 100 40 09/06/17 20:00 30 09/06/17 20:00 82 09/06/17 20:00 99.3 82 14 100 150/64 (92) 09/06/17 19:37 83 148/72 09/06/17 18:30 80 134/61 09/06/17 18:00 80 09/06/17 16:28 86 148/66 09/06/17 16:00 99.1 86 16 100 141/63 (89) 09/06/17 16:00 30 09/06/17 16:00 100 40 09/06/17 16:00 80 09/06/17 14:16 78 130/59 09/06/17 14:00 78 09/06/17 12:32 79 133/64 09/06/17 12:02 100 40 09/06/17 12:00 98.9 79 14 100 135/65 (88) 09/06/17 12:00 30 09/06/17 12:00 79 09/06/17 10:37 81 142/67 09/06/17 10:32 40 09/06/17 10:00 88 09/06/17 09:03 83 148/66 (Carmen Chamberlain) Review of Systems ROS Limitations: Clinical Condition, Intubated (Carmen Chamberlain) Physical Exam Ms. Haider remains intubated and remains well sedated for blood pressure control. Cranial Nerves: Pupils 3-4 mm round, reactive to light. Surgical wound is healing well. No evidence of infection. Motor: minimal response to pain in feet. (Carmen Chamberlain) Medications Current Medications Current Medications Medications (Trade) Dose Ordered Sig/Christopher Route PRN Reason Start Time Stop Time Status Last Admin Dose Admin Sodium Chloride (NS Flush) 2 ml UNSCH PRN IV FLUSH FLUSH AFTER USING IV ACCESS 08/30/17 16:15 Sodium Chloride (NS Flush) 2 ml BID IV FLUSH 08/30/17 21:00 09/06/17 20:17 Ondansetron HCl (Zofran Inj) 4 mg Q6H PRN IV PUSH NAUSEA OR VOMITING 08/30/17 16:15 Albuterol Sulfate (Albuterol Neb) 2.5 mg Q2HR NEB PRN INH SOB/WHEEZING 08/30/17 16:15 Miscellaneous Information 1 Q361D XX 08/30/17 16:15 Chlorhexidine Gluconate (Chlorhexidine 2% Cloth) Taper DAILY@04 TOP 08/31/17 04:00 08/27/18 03:59 09/04/17 04:00 Chlorhexidine Gluconate (Chlorhexidine 2% Cloth) 3 pack UNSCH PRN TOP HYGIENIC CARE 08/30/17 16:15 Magnesium Hydroxide (Milk Of Magnana Liq) 30 ml Q12H PRN PO Mild constipation 08/30/17 16:15 Sennosides (Senokot) 17.2 mg Q12H PRN PO Moderate constipation 08/30/17 16:15 Bisacodyl (Dulcolax Supp) 10 mg DAILY PRN RECTAL SEVERE CONSITIPATION 08/30/17 16:15 Atorvastatin Calcium (Lipitor) 40 mg HS PO 08/30/17 21:00 09/06/17 20:16 Doxepin HCl (SINEquan) 10 mg HS PO 08/30/17 21:00 09/06/17 20:18 Furosemide (Lasix) 40 mg DAILY PO 08/31/17 09:00 09/06/17 09:01 Levetriacetam 500 mg/Sodium Chloride 105 ml @ 420 mls/hr Q12HR IV 08/30/17 21:00 09/06/17 20:16 Dextrose (D50w (Vial) Inj) 50 ml UNSCH PRN IV PUSH HYPOGLYCEMIA-SEE COMMENTS 08/30/17 16:15 Glucagon (Glucagon Inj) 1 mg UNSCH PRN OTHER HYPOGLYCEMIA-SEE COMMENTS 08/30/17 16:15 Labetalol HCl (Trandate Inj) 10 mg Q1HR PRN IV PUSH SBP>150, DBP>90, HR>65 08/30/17 16:15 09/06/17 22:46 Hydralazine HCl (Apresoline Inj) 10 mg Q1HR PRN IV PUSH SBP>150, DBP>90 08/30/17 16:15 09/07/17 05:51 Nitroglycerin (Nitroglycerin 2% Oint) 2 inch Q6H PRN TOPICAL SBP>150, DBP>90 08/30/17 16:15 Calcium Gluconate (Calcium Gluconate Inj) 1 gm UNSCH PRN IV SEE LABEL COMMENTS 08/31/17 13:30 Acetaminophen/ Hydrocodone Bitart ([place] 10-325 Mg) 1 tab Q4H PRN PO PAIN SCALE 1 TO 5 08/31/17 13:30 Future Hold Acetaminophen/ Hydrocodone Bitart ([place] 10-325 Mg) 2 tab Q4H PRN PO PAIN SCALE 6 TO 10 08/31/17 13:30 Future Hold Morphine Sulfate (Morphine Inj) 2 mg Q2H PRN IV PUSH PAIN SCALE 1 TO 6 08/31/17 13:30 09/01/17 06:15 Morphine Sulfate (Morphine Inj) 4 mg Q2H PRN IV PUSH PAIN SCALE 7 TO 10 08/31/17 13:30 Cholecalciferol (Vitamin D3) 1,000 units DAILY PO 09/01/17 09:00 09/06/17 09:02 Tolterodine Tartrate (Detrol La) 2 mg DAILY PO 09/01/17 09:00 09/04/17 08:50 Patient Own Medication PT OWN MED: LINAGLIP... DAILY PO 09/01/17 09:00 Future Hold Mupirocin (Bactroban Nasal 2% Oint) Taper BID EACH NARE 09/01/17 10:00 08/28/18 09:59 09/06/17 20:17 Chlorhexidine Gluconate (Peridex 0.12% Liq) 15 ml BID@08,20 MT 09/01/17 20:00 09/06/17 20:17 Propofol 100 ml @ 2.79 mls/hr TITRATE PRN IV SEDATION 09/01/17 09:45 09/07/17 07:39 Nicardipine HCl 25 mg/Sodium Chloride 250 ml @ 50 mls/hr TITRATE PRN IV Blood pressure management 09/01/17 10:00 09/07/17 04:00 Sodium Chloride (NS Flush) DAILY IV FLUSH 09/01/17 10:30 09/03/17 08:25 Sodium Chloride (NS Flush) UNSCH PRN IV FLUSH SEE PROTOCOL 09/01/17 10:30 Artificial Tears (Tears Naturale Opth Soln) 1 drop Q8HR EACH EYE 09/01/17 14:00 09/07/17 05:17 Famotidine (Pepcid Inj) 20 mg Q12H IV PUSH 09/01/17 11:00 09/06/17 23:02 Isosorbide Dinitrate (Isordil) 10 mg Q8HR PO 09/01/17 14:00 09/07/17 05:17 Potassium Chloride 100 ml @ 50 mls/hr Q2H PRN IV For Potassium 2.8 - 3.2 mEq/L 09/02/17 06:30 Potassium Chloride 100 ml @ 50 mls/hr Q2H PRN IV For Potassium 2.8 - 3.2 mEq/L 09/02/17 06:30 Potassium Bicarb/ Potassium Chloride (K-Lyte Cl Eff) 50 meq UNSCH PRN PO For Potassium 3.3 - 3.5 mEq/L 09/02/17 06:30 Potassium Chloride 100 ml @ 25 mls/hr UNSCH PRN IV For Potassium 3.3 - 3.5 mEq/L 09/02/17 06:30 09/06/17 21:38 Potassium Chloride 100 ml @ 50 mls/hr Q2H PRN IV For Potassium 3.3 - 3.5 mEq/L 09/02/17 06:30 Magnesium Sulfate 4 gm/Sodium Chloride 100 ml @ 50 mls/hr UNSCH PRN IV For Magnesium 0.9 - 1.1 mg/dL 09/02/17 06:30 Magnesium Oxide (Mag-Ox) 800 mg UNSCH PRN PO For Magnesium 1.2 - 1.6 mg/dL 09/02/17 06:30 Magnesium Sulfate 2 gm/Sodium Chloride 100 ml @ 50 mls/hr UNSCH PRN IV For Magnesium 1.2 - 1.6 mg/dL 09/02/17 06:30 Potassium Phosphate (K-Phos) 2,000 mg Q4H PRN PO For Phosphorus < 2.5 mg/dL 09/02/17 06:30 Sodium Phosphate 30 mmol/Sodium Chloride 250 ml @ 42 mls/hr UNSCH PRN IV For Phosphorus < 2.5 mg/dL 09/02/17 06:30 Potassium Phosphate (K-Phos) 2,000 mg UNSCH PRN PO/TUBE SEE LABEL COMMENTS 09/02/17 06:30 Potassium Phosphate 30 mmol/ Sodium Chloride 260 ml @ 42 mls/hr UNSCH PRN IV SEE LABEL COMMENTS 09/02/17 06:30 09/02/17 08:28 Docusate Sodium (Colace Liq) 100 mg Q12HR PO 09/02/17 09:00 09/06/17 20:15 Sennosides (Senna Liq) 8.8 mg BID PO 09/02/17 09:00 09/06/17 20:15 Polyethylene Glycol (Miralax) 17 gm BID PO 09/02/17 09:00 09/06/17 20:15 Acetaminophen (Tylenol 650 Mg/ 20 ml Liq) 650 mg Q6H PRN PO fever 09/02/17 07:15 09/03/17 20:16 Lactulose (Lactulose Liq) 30 ml BID PO 09/03/17 08:00 09/06/17 20:16 Insulin Human Regular (NovoLIN R SUPPLEMENTAL SCALE) 1 Q6HR SQ 09/03/17 12:00 09/07/17 05:49 Albuterol/ Ipratropium (Duoneb Neb) 1 ampule Q6HR NEB NEB 09/03/17 10:00 09/07/17 08:01 Valproic Acid (Depakene Liq) 250 mg BID OG-TUBE 09/04/17 11:00 09/06/17 20:16 Fentanyl Citrate 250 ml @ 5 mls/hr TITRATE PRN IV SEDATION 09/05/17 16:45 09/06/17 19:36 Insulin Detemir (Levemir Inj) 15 units Q12HR SQ 09/06/17 09:00 09/06/17 20:18 Lisinopril (Prinivil) 30 mg DAILY PO 09/07/17 09:00 Metoprolol Tartrate (Lopressor) 25 mg Q6HR PO 09/07/17 06:00 09/07/17 05:17 Amlodipine Besylate (Norvasc) 10 mg DAILY OG-TUBE 09/07/17 02:00 09/07/17 02:01 Miscellaneous (Pill Splitter) 1 ea UNSCH PRN OTHER SEE LABEL COMMENTS 09/07/17 02:00 (Carmen Chamberlain) Medical Decision Making MDM Remarks 57 y/o female TBI following slip and fall on wet grass, she hit her face on concrete sidewalk, CT Brain on arrival with right subdural hematoma, diffuse SAH she underwent right side craniotomy for evacuation of subdural hematoma on 08/31 respiratory failure, reintubated 09/01/17 f/u CT Head 09/02 with improvement of right subdural hematoma, stable right temporal/parietal intraparenchymal hematoma, small right cerebellar contusion, and diffuse SAH, no new ICH f/u CT Head 09/05 stable to improving right temporal/parietal and cerebellar ICH EEG 09/01 neg for seizure uncontrolled hypertension requiring sedatives (Carmen Chamberlain) Plan Plan Remarks cont critical care management, cont sedation and vent weaning as tolerated, serial neuro checks, and follow up exam (Carmen Chamberlain) Attending Statement The exam, history, and the medical decision-making described in the above note were completed with the assistance of the mid-level provider. I reviewed and agree with the findings presented. I attest that I had a [id number] encounter with the patient on the same day, and personally performed and documented my assessment and findings in the medical record. (Yannick Aiken MD) Carmen Chamberlain Sep 07, 2017 08:55 Yannick Aiken MD Sep 14, 2017 21:21
[2017-09-07] MEDS: SODIUM CHLORIDE 0.9% FLUSH 10 ML FLUSH IV FLUSH SCH ×3 (09:00→20:20)
[2017-09-07] MEDS: POLYETHYLENE GLYCOL 17 GM PKG PO SCH ×2 (09:00→20:19)
[2017-09-07] MEDS: INSULIN DETEMIR 100 UNITS/ML VIAL SQ SCH ×2 (09:00→20:28)
[2017-09-07] MEDS: DOCUSATE SODIUM 100 MG/10 ML UDC PO SCH ×2 (09:00→20:20)
[2017-09-07] MEDS: SENNOSIDES SYRUP 8.8 MG/5 ML CUP PO SCH ×2 (09:00→20:19)
[2017-09-07] MEDS: LACTULOSE SYRUP 20 GM/30 ML CUP PO SCH ×2 (09:00→20:20)
[2017-09-07] MEDS: VALPROIC ACID SYRUP 250 MG/5 ML UDC OG-TUBE SCH ×2 (09:21→20:20)
[2017-09-07] MEDS: MUPIROCIN 2% OINT 1 APPLIC/GM SYR EACH NARE SCH ×2 (09:22→20:21)
[2017-09-07] MEDS: levETIRAcetam INJ 500 MG in SODIUM CHLORIDE 0.9% INJ 100 ML IV SCH ×2 (09:23→20:20)
[2017-09-07] MEDS: TOLTERODINE TARTRATE 2 MG CAP LA PO SCH (09:23)
[2017-09-07] MEDS: LISINOPRIL 20 MG TAB PO SCH (09:24)
[2017-09-07] MEDS: CHOLECALCIFEROL (VIT D3) 1000 UNIT TAB PO SCH (09:24)
[2017-09-07] MEDS: FUROSEMIDE 40 MG TAB PO SCH (09:24)
[2017-09-07] MEDS: FAMOTIDINE 20 MG/2 ML VIAL IV PUSH SCH ×2 (11:00→23:14)
[2017-09-07 12:08] LABS: AUTOMATED NEUTROPHIL # 7.3 TH/MM3 (1.8-7.7); BASOPHIL # 0.1 TH/MM3 (0-0.2); BASOPHIL % 0.6 % (0.0-2.0); EOSINOPHIL # 0.1 TH/MM3 (0-0.4); EOSINOPHIL % 0.9 % (0.0-4.0); HEMATOCRIT 29.1 % (35.0-46.0); LYMPH % 10.3 % (9.0-44.0); MEAN CELL VOLUME 84.1 FL (80.0-100.0); MEAN CORPUSCULAR HGB CONC 32.1 % (32.0-36.0); MONO % 13.8 % (0.0-8.0); NEUT % 74.4 % (16.0-70.0); PLATELET COUNT 287 TH/MM3 (150-450); RED BLOOD COUNT 3.46 MIL/MM3 (4.00-5.30); WHITE BLOOD COUNT 9.9 TH/MM3 (4.0-11.0)
[2017-09-07 12:09] LABS: HEMO FLAGS AUTO DIFF
[2017-09-07 12:49] LABS: BANDS 5 % (0-6); MYELOCYTES 1 % (0-0); NEUTROPHIL # MANUAL DIFF 8.3 TH/MM3 (1.8-7.7); PLATELET ESTIMATE SMEAR NORMAL (NORMAL); PLATELET MORPHOLOGY NORMAL (NORMAL); POLYS (SEG NEUTROPHILS) 78 % (16-70); SCAN/DIFF FINAL DIFF MANUAL; WBC DIFF SAMPLE 100
[2017-09-07 12:50] LABS: OVALOCYTES 1+ (NORMAL)
[2017-09-07 17:31] LABS: BICARBONATE 25.4 MEQ/L (21.0-32.0); POTASSIUM 3.5 MEQ/L (3.5-5.1)
[2017-09-07] MEDS: LABETALOL HCL 100 MG/20 ML VIAL IV PUSH PRN (17:51)
[2017-09-07] MEDS: DOXEPIN HCL 10 MG CAP PO SCH (20:20)
[2017-09-07] MEDS: ATORVASTATIN 40 MG TAB PO SCH (20:21)
[2017-09-07] MEDS: fentaNYL DRIP 250 ML IV PRN (20:48)
[2017-09-07] MEDS: niCARdipine INJ 50 MG in SODIUM CHLORID 0.9% 500 ML INJ 480 ML IV PRN (21:14)
[2017-09-08] VITALS (18 sets, daily range): BP systolic 108–157; BP diastolic 58–70; PULSE 76–111; RESP 15–20; TEMP 98.6–100.7; O2SAT 96–100
[2017-09-08] MEDS: niCARdipine INJ 50 MG in SODIUM CHLORID 0.9% 500 ML INJ 480 ML IV PRN ×2 (01:01→04:47)
[2017-09-08] MEDS: PROPOFOL 1000 MG/100 ML INJ 100 ML IV PRN ×2 (02:33→06:14)
[2017-09-08] MEDS: CHLORHEXIDINE GLUCONATE 2 % 1 PACK (2 CLOTHS) TOP SCH (04:00)
[2017-09-08 05:15] LABS: AUTOMATED NEUTROPHIL # 6.7 TH/MM3 (1.8-7.7); BASOPHIL # 0.1 TH/MM3 (0-0.2); BASOPHIL % 0.8 % (0.0-2.0); EOSINOPHIL # 0.1 TH/MM3 (0-0.4); EOSINOPHIL % 0.9 % (0.0-4.0); HEMATOCRIT 27.4 % (35.0-46.0); HEMO FLAGS DIFF FINAL; LYMPH % 14.5 % (9.0-44.0); LYMPHOCYTE # 1.4 TH/MM3 (1.0-4.8); MEAN CELL VOLUME 83.7 FL (80.0-100.0); MEAN CORPUSCULAR HEMOGLOBIN 27.6 PG (27.0-34.0); MEAN CORPUSCULAR HGB CONC 32.9 % (32.0-36.0); NEUT % 66.8 % (16.0-70.0); PLATELET COUNT 294 TH/MM3 (150-450); RED BLOOD COUNT 3.27 MIL/MM3 (4.00-5.30); RED CELL DISTRIBUTION WIDTH 15.1 % (11.6-17.2)
[2017-09-08 05:37] LABS: BICARBONATE 27.5 MEQ/L (21.0-32.0); POTASSIUM 3.7 MEQ/L (3.5-5.1)
[2017-09-08] MEDS: ARTIFICIAL TEARS OPTH SOLN 15 ML BTL EACH EYE SCH ×2 (05:51→21:06)
[2017-09-08] MEDS: METOPROLOL TARTRATE 25 MG TAB PO SCH (05:51)
[2017-09-08] MEDS: ISOSORBIDE DINITRATE 10 MG TAB PO SCH ×3 (05:51→21:22)
[2017-09-08] MEDS: INSULIN NovoLIN REGULAR SUPPLEMENTAL SCALE SQ SCH ×4 (06:38→23:22)
[2017-09-08] MEDS: CHLORHEXIDINE 0.12% (ORAL KIT) 15 ML CUP MT SCH ×2 (08:50→20:25)
[2017-09-08] MEDS: DOCUSATE SODIUM 100 MG/10 ML UDC PO SCH ×2 (08:51→20:21)
[2017-09-08] MEDS: levETIRAcetam INJ 500 MG in SODIUM CHLORIDE 0.9% INJ 100 ML IV SCH ×2 (08:51→20:25)
[2017-09-08] MEDS: LISINOPRIL 20 MG TAB PO SCH ×2 (08:52→20:25)
[2017-09-08] MEDS: CHOLECALCIFEROL (VIT D3) 1000 UNIT TAB PO SCH (08:52)
[2017-09-08] MEDS: FUROSEMIDE 40 MG TAB PO SCH (08:52)
[2017-09-08] MEDS: INSULIN DETEMIR 100 UNITS/ML VIAL SQ SCH ×2 (08:53→20:24)
[2017-09-08] MEDS: POLYETHYLENE GLYCOL 17 GM PKG PO SCH ×2 (08:53→21:05)
[2017-09-08] MEDS: LACTULOSE SYRUP 20 GM/30 ML CUP PO SCH ×2 (08:53→20:25)
[2017-09-08] MEDS: SENNOSIDES SYRUP 8.8 MG/5 ML CUP PO SCH ×2 (08:53→20:26)
[2017-09-08] MEDS: VALPROIC ACID SYRUP 250 MG/5 ML UDC OG-TUBE SCH ×2 (08:54→20:25)
[2017-09-08] MEDS: SODIUM CHLORIDE 0.9% FLUSH 10 ML FLUSH IV FLUSH SCH ×3 (08:54→20:25)
--- NOTE | 2017-09-08 09:16 | HHI.CCPN ---
Subjective Remarks/Hospital Course 57-year-old AA female . Date of admission 08/30/2017. Past medical history includes schizoaffective/bipolar, depression, seizure disorder, hypertension, dyslipidemia, diabetes and allergic rhinitis. She is not on any blood thinners or aspirin. This patient was walking from [place] in approximately 6 AM this morning when she suffered a fall and landed on the right side of her face.. She states she slipped in the wet grass hitting her face on the concrete. No loss of consciousness. Not seizure activity noted. Not tongue biting. No incontinence of stool or urine. She took her eggs and milk and transported back home because she had to meet the maintenance planner. Patient states that she's been having a headache and right-sided facial pain since. 08/30 CT of the brain showed a right frontotemporal subdural hematoma 1.6 cm with a 3 mm right to left shift. Maxillofacial CT revealed a nondisplaced right nasal fracture. CT spine negative. CBC showed normocytic anemia. BMP is pending. Elevated PTT coags at 33. Patient was loaded with 500 mg levetiracetam, given as needed for elevated blood pressure stabilized in the ED. Neurosurgical consultation was requested with Dr. Aiken. 08/31: Afebrile. CT brain revealed increased diameter right-sided subdural hematoma up to 1.9 cm. Shift is 1 mm right to left. Positive headache. No seizure activity. No real focal neurological deficits. 09/01: Patient subjective a weak left upper and lower extremity greater than right. Mumbling words. Stat CT brain revealed 2.6 cm image right intraparenchymal hemorrhage on the right temporal parietal region, 0.9 cm right cerebellar hemorrhage and bilateral subarachnoid hemorrhage convex's. Notified Dr. Aiken. Patient was intubated for airway protection and central line placed for hypertonic saline 09/02: Tmax 99.9. Improved subarachnoid hemorrhage. Stable right intraparenchymal hemorrhages. Potassium and phosphorus been replaced. No bowel movement. Subjective 09/03: Currently afebrile. Remains on propofol and fentanyl drips for sedation. Tolerating tube feeds at goal. Arousable with open eyes but not following commands currently. 09/04: Remains sedated, orally intubated on mechanical ventilation. Tolerating tube feeds. 09/05: Remains sedated, orally intubated on mechanical ventilation. Tolerating tube feeds. 09/06: Breathes over vent despite sedation. Withdraws limbs. 09/07: Remains sedated, orally intubated on mechanical ventilation. Tolerating tube feeds. 09/08: Will work toward extubation when OK with Neurosurgery. Objective Vital Signs Date Time Temp Pulse Resp B/P (MAP) Pulse Ox O2 Delivery O2 Flow Rate FiO2 09/08/17 06:00 98 09/08/17 04:47 148/70 09/08/17 04:00 40 09/08/17 04:00 98.8 15 98 09/06/17 20:35 Ventilator Intake and Output 09/08/17 09/08/17 09/09/17 08:00 16:00 00:00 Intake Total 1292 ml Output Total 1100 ml Balance 192 ml Result Diagram: 09/08/17 0500 09/08/17 0500 Imaging Last Impressions Chest X-Ray 09/03/17 0600 Signed Impressions: Service Date/Time: Sunday, September 03, 2017 04:42 - CONCLUSION: 1. Bibasilar atelectasis, slightly improved in the right lower lobe but slightly worsened left lower lobe. Fantasma Miller MD Head CT 09/02/17 0600 Signed Impressions: Service Date/Time: Saturday, September 02, 2017 04:41 - CONCLUSION: 1. Mild interval improvement in subarachnoid hemorrhage over the parietal convexities. 2. Stable intraparenchymal hemorrhage in the right parietal lobe and right cerebellar hemisphere. 3. The subdural drainage catheter remains in place with no residual subdural hematoma. 4. No new hemorrhage or mass effect. Tyree Wise MD Abdomen X-Ray 09/01/17 0000 Signed Impressions: Service Date/Time: Friday, September 01, 2017 18:29 - CONCLUSION: Nasogastric tube coiled in the stomach with the tip projecting towards the GE junction. Migue Cuenca Jr., MD Maxillofacial CT 08/30/17 0000 Signed Impressions: Service Date/Time: August 15:13 - CONCLUSION: 1. There is a minimally depressed right nasal bone fracture with adjacent soft tissue swelling. No other fracture is visualized. 2. Please refer to head CT report for description of the right subdural hematoma. Nacho Buckley MD Lumbar Spine CT 08/30/17 0000 Signed Impressions: Service Date/Time: August 17:59 - CONCLUSION: Negative examination. Alec Latham MD Cervical Spine CT 08/30/17 0000 Signed Impressions: Service Date/Time: August 15:12 - CONCLUSION: 1. No acute fracture or subluxation. Skinny Muñiz MD Objective Remarks GENERAL: 57-year-old AA female, resting in bed orotracheally intubated SKIN: Warm and dry. Abrasions to the right cheek and chin with evolving ecchymoses HEAD: Status post right craniotomy with subdural, scalp drain in place EYES: Pupils equal and round about 3 mm bilaterally and reactive. Right eyelid swollen, protuberant globe. No scleral icterus. No injection or drainage. ENT: No nasal bleeding or discharge. Mucous membranes pink and moist. NECK: Trachea midline. Orally intubated. CARDIOVASCULAR: Tachycardia, RR. S1, S2. No S4. Without murmur. No JVD. RESPIRATORY: Clear to auscultation. Breath sounds equal bilaterally. Nio adventitious sounds. GASTROINTESTINAL: Abdomen soft, non-tender, nondistended. Bowel sounds are sluggish but appreciated MUSCULOSKELETAL: Extremities without significant peripheral edema. No obvious deformities. Well perfused. NEUROLOGICAL: Currently sedated on propofol and fentanyl drips. Eyes open. Withdraws to pain bilateral upper and lower extremities. Not following commands Date of Insertion: Sep 01, 2017 Line: Central Venous Catheter Side: Left Location: Internal, Jugular A/P Assessment and Plan Neuro/Psych: s/p right craniotomy with evacuation of subdural hematoma 2.6 cm right parietal/temporal intracranial hemorrhage, 0.9 cm right subdural hemorrhage and bilateral subarachnoid hemorrhage Right subdural hematoma - 1.6 cm fronto temporal with a 3 mm right to left shift Right closed nondisplaced nasal fracture Schizoaffective disorder Bipolar disorder Depression Seizure disorder NOS Propofolfentanyl drips for sedation/analgesia while intubated Goal of RASS -[address] brain 08/30 revealed a right frontal temporal subdural hematoma 1.6 cm thickness with a 3 mm right to left shift. Nondisplaced right nasal bone fracture. CT brain 08/31 revealed 2.6 cm right parietal intracranial hemorrhage, 0.9 cm right subdural hemorrhage and bilateral subarachnoid hemorrhage CT brain 09/01 revealed stable intraparenchymal hemorrhage improving subarachnoid hemorrhage at the convex CT Head 09/05 with stable areas of ICH/ SAH. EEG 08/31 revealed generalized slowing/encephalopathy. Disruption right side secondary to intraparenchymal hemorrhage. Levetiracetam 500 mg IV twice a day for seizure prophylaxis 7 days Resumed home dose of valproic acid 250mg BID via OGT. Goal keep systolic blood pressure less than 140. Neurochecks Head of bed at 30 Stop hypertonic saline 09/05 per neurosurgery. Evaluated by Dr. Aiken/neurosurgery Continue doxepin 10 mg by mouth daily Holding loratadine 10 mg by mouth daily CV: Hypertension Dyslipidemia Increase metoprolol 25 mg via OGT Q6hrly for hypertension. Increase Prinivil to 30 mg by mouth daily. Continue isosorbide mononitrate 30 mg by mouth daily but switch to isosorbide dinitrate 10 mg 3 times a day As needed labetalol, hydralazine, Nitropaste and nicardipine drip to keep systolic blood pressure less than 140. Added Norvasc 10 mg via OG tube daily on 09/07. Continue atorvastatin 40 mg by mouth daily for dyslipidemia Resp: PRVC 16/500/11/16/39 Ventilator bundle Albuterol/after aerosols every 6 hours with albuterol aerosols every 2 hours prn dyspnea Spontaneous breathing trials daily Chest x-ray revealed bilateral lower lobe atelectasis left greater than right. GI: Continue tube feeding with vital 1.5 goal 50 cc an hour Famotidine for GI prophylaxis Docusate sodium/senna and polyethylene glycol twice a day for bowel regimen. Add lactulose and mineral oil 1 today and a one-time dose of 12 mg subcutaneous methylnaltrexone : Incontinence Porter catheter if indicated for accurate I's and O's in a critically ill patient Holding Tolterodine 2 mg by mouth daily. Resume when clinically indicated Endo: Diabetes History of hypothyroidism/thyroid nodules Holding metformin 1000 mg daily and Linagliptin 5 mg daily for diabetes. Sliding-scale insulin with Accu-Cheks to maintain euglycemia increase detemir 15 units twice a day Renal: History of renal cell carcinoma status post right nephrectomy KVO IVF 09/05 Monitor urine output Accurate I's and O's Follow-up ER BMP not completed Heme: Normocytic anemia Elevated PTT Thrombocytopenia Monitor CBC daily. Follow trends Does not meet transfusion thresholds at this time ID: Monitor for infection FEN: Hypophosphatemia Hypokalemia Replace electrolytes as clinically indicated per ICU electrolyte protocol. Recheck potassium and phosphorus at 1500 Holding cholecalciferol 1000 U daily. Resume when clinically indicated MSK: Osteoarthritis Physical therapy evaluate and treat Access -Left IJ CVL day #5 Prophylaxis - GI famotidine - DVT- SCD/holding pharmacological prophylaxis in light of subdural hematoma Patient remains critical with SDH, cerebral edema status post craniotomy Overall impression: Remains critically ill after evacuation of SDH. Unable to wean ventilator. Fails SBTs daily. Need more aggressibe BP control. Critical care 39 mins Mc Parrish MD Sep 08, 2017 09:16
--- NOTE | 2017-09-08 09:45 | HHI.NSPN ---
(Mikel Kumarshyann CHAWLA) History Chief Complaint: Unable to obtain due to patient's clinical condition. (Volodymyr Kumar Nicki CHAWLA) Interval History This is a 57-year-old female who apparently is status post slip and fall around 6 AM this morning. She states she was on her way to [facility] she had some eggs when she slipped in the wet grass hitting her face on the concrete. No loss of consciousness. Not seizure activity noted. Not tongue biting. No incontinence of stool or urine. ..She took her eggs and milk and transported back home because she had to meet the building repair maintenance supervisor. Patient states that she' s been having a headache and right-sided facial pain since. She denies any chest pain, shortness of breath, change in vision, numbness or tingling anywhere , neck pain, back pain, loss or change in bowel or bladder, or being on any blood thinners. She is moving where both upper and lower extremities without any focal deficit. CT of the brain showed a right sided accurate subdural hematoma causing mass effect and midline shift. The subdural was hematoma 1.6 cm thick with a 3 mm right to left shift. Maxillofacial CT revealed a nondisplaced right nasal fracture. CT spine negative. Neurosurgical consultation was requested 09/01: Letahrgic today. Open eyes follows commands withn all [address] brain showed new frontal and post fossa bleed 09/02: remains intubated, off sedation she slightly opens eyes and moves all four extremities. EEG yesterday neg for seizures. 09/03: intubated, again off sedation reports to open her eyes and moves x 4, but not following commands 09/04: nursing reports minimal eye opening, moves x 4. intubated and sedated. 09/05: f/u CT Head completed, stable right temporal and cerebellar hemorrhage, no significant midline shift or mass effect. remains intubated and sedated. 09/06: remains intubated and well sedated for blood pressure control. 09/07: sedation lowered, eyes open, moving legs intermittently?to command. did not follow in the upper extremities. 09/08: The patient is obtunded but does have propofol infusing for sedation. Nursing reports that she does move all extremities to noxious stimulation and the right upper and both lower spontaneously. (Volodymyr Kumar) System Review Comments Unable to obtain due to patient's clinical condition. (Volodymyr Kumar) Exam Results 09/06/17 09/06/17 09/07/17 09/07/17 09/08/17 09/08/17 06:00 18:00 06:00 18:00 06:00 18:00 Intake Total 3036 ml 2797 ml 2511 ml 5606 ml 1647 ml Output Total 2700 ml 3150.0 ml 2000 ml 3600 ml 1100 ml Balance 336 ml -353.0 ml 511 ml 2006 ml 547 ml IV Total 2496 ml 1846 ml 1962 ml 5056 ml 955 ml Tube Feeding 540 ml 551 ml 549 ml 550 ml 532 ml Tube Irrigant 400 ml 160 ml Output Urine Total 2700 ml 2850 ml 2000 ml 3600 ml 1100 ml Tube Feeding Residual Discard 0 ml 300.0 ml 0 ml 0 ml 0 ml # Bowel Movements 0 0 Vital Signs Date Time Temp Pulse Resp B/P (MAP) Pulse Ox O2 Delivery O2 Flow Rate FiO2 09/08/17 06:00 98 09/08/17 04:47 102 148/70 09/08/17 04:00 101 09/08/17 04:00 40 09/08/17 04:00 98.8 101 15 150/70 (96) 98 09/08/17 03:43 96 40 09/08/17 02:00 98 09/08/17 01:01 94 157/67 09/08/17 00:00 40 09/08/17 00:00 76 09/08/17 00:00 99.1 94 15 157/67 (97) 100 09/07/17 22:51 100 40 09/07/17 22:00 91 09/07/17 21:14 92 138/68 09/07/17 20:22 100 40 09/07/17 20:22 100 40 09/07/17 20:00 40 09/07/17 20:00 86 09/07/17 20:00 99.4 86 14 125/69 (87) 97 09/07/17 16:29 100 40 09/07/17 16:00 40 09/07/17 16:00 100.0 100 14 154/64 (94) 100 09/07/17 15:44 103 09/07/17 13:21 99 40 09/07/17 12:00 99.0 98 14 147/65 (92) 98 09/07/17 12:00 40 09/07/17 10:29 40 09/07/17 10:15 93 40 09/07/17 10:00 40 09/07/17 09:29 95 40 09/07/17 09:29 40 09/07/17 09:29 40 09/07/17 09:22 78 09/07/17 08:01 98 40 09/07/17 08:00 98.9 89 15 125/69 (87) 98 09/07/17 08:00 40 09/07/17 06:00 99 09/07/17 04:12 97 40 09/07/17 04:00 98 09/07/17 04:00 30 09/07/17 04:00 100.1 98 24 97 146/66 (92) 09/07/17 04:00 98 146/66 09/07/17 02:00 96 09/07/17 01:53 96 152/62 09/07/17 00:00 100.0 88 14 100 144/68 (93) 09/07/17 00:00 88 09/07/17 00:00 30 09/06/17 23:47 88 139/60 09/06/17 23:44 100 40 09/06/17 22:00 92 09/06/17 21:29 83 144/64 09/06/17 20:35 100 Ventilator 40 09/06/17 20:35 100 40 09/06/17 20:35 100 40 09/06/17 20:00 30 09/06/17 20:00 82 09/06/17 20:00 99.3 82 14 100 150/64 (92) 09/06/17 19:37 83 148/72 09/06/17 18:30 80 134/61 09/06/17 18:00 80 09/06/17 16:28 86 148/66 09/06/17 16:00 99.1 86 16 100 141/63 (89) 09/06/17 16:00 30 09/06/17 16:00 100 40 09/06/17 16:00 80 09/06/17 14:16 78 130/59 09/06/17 14:00 78 09/06/17 12:32 79 133/64 09/06/17 12:02 100 40 09/06/17 12:00 98.9 79 14 100 135/65 (88) 09/06/17 12:00 30 09/06/17 12:00 79 09/06/17 10:37 81 142/67 09/06/17 10:32 40 09/06/17 10:00 88 09/06/17 09:03 83 148/66 09/06/17 08:09 100 40 09/06/17 08:00 30 09/06/17 08:00 84 09/06/17 08:00 98.6 84 14 100 141/61 (87) 09/06/17 06:42 85 136/64 09/06/17 06:00 95 09/06/17 04:05 100 30 09/06/17 04:00 30 09/06/17 04:00 99.6 96 20 100 130/62 (84) 09/06/17 04:00 96 09/06/17 04:00 96 130/62 09/06/17 03:05 96 156/68 09/06/17 02:00 96 09/06/17 01:39 96 133/63 09/06/17 01:18 98 30 09/06/17 00:12 97 30 09/06/17 00:12 97 30 09/06/17 00:00 99.7 100 21 97 136/64 (88) 09/06/17 00:00 100 09/06/17 00:00 30 09/05/17 23:58 100 138/65 09/05/17 22:00 104 09/05/17 21:55 104 159/67 09/05/17 21:06 99 30 09/05/17 20:15 88 169/73 09/05/17 20:00 104 09/05/17 20:00 30 09/05/17 20:00 99.3 104 14 96 214/102 (139) 09/05/17 18:34 81 154/105 09/05/17 18:00 78 09/05/17 16:20 77 205/95 09/05/17 16:00 99.4 78 14 100 138/62 (87) 09/05/17 16:00 30 09/05/17 16:00 81 09/05/17 15:57 100 30 09/05/17 14:00 75 09/05/17 12:00 72 09/05/17 12:00 98.7 72 14 100 131/62 (85) 09/05/17 12:00 30 09/05/17 10:00 70 09/05/17 09:47 100 60 (Volodymyr Kumar) Physical Examination GENERAL: Intubated & mechanically ventilated, sedated with propofol 50 mcg/kg/ min, fentanyl 100 mcg/hr infusing for pain. HEENT: Normocephalic, well-approximated right craniotomy surgical incision w/ sidney intact. PERRLA 2 mm brisk, orally intubated, OGT. NECK: No JVD, trachea midline, left IJ central venous catheter. RESPIRATORY/CHEST: CTAB w/o W/R/R, equal excursion, nonlaboured, intubated & mechanically ventilated. CARDIOVASCULAR: S1S2 w/RRR w/o M/G/R, radial & pedal pulses 2+ bilaterally, cap refill < 2 sec, 2+ pedal edema bilaterally. Monitor is sinus rhythm w/o any ectopy noted. GASTROINTESTINAL: Abdomen soft, nontender, positive bowel sounds, OGT w/enteral feeds. EXTREMITIES: BARBOSA to noxious stimulation, no evident deformity or clubbing. SKIN: Warm, dry & intact w/o any rash, ulcerations or other lesions noted except for well-approximated right craniotomy surgical incision healing w/o complication. NEUROLOGIC: Intubated, sedated on propofol, GCS 7T (E2 V1T M4). Does not follow any commands. Partial left eye opening to noxious stimulation. W/local noxious stimulation trace movement RYAN, withdrawal right foot, slight withdrawal left foot, no response RUE. To central noxious stimulation movement to all four extremities. (Volodymyr Kumar) Lab, Micro, Other Results Laboratory Tests Test 09/06/17 00:55 09/06/17 05:37 09/06/17 20:40 09/07/17 04:55 Blood Gas Puncture Site ART LINE ART LINE Blood Gas Patient Temperature 98.6 98.6 Blood Gas HCO3 23 mmol/L 23 mmol/L Blood Gas Base Excess 0.6 mmol/L 0.1 mmol/L Blood Gas Oxygen Saturation 94 % 94 % Arterial Blood pH 7.55 7.52 Arterial Blood Partial Pressure CO2 26 mmHg 28 mmHg Arterial Blood Partial Pressure O2 79 mmHg 80 mmHg Arterial Blood Oxygen Content 14.3 Vol % 13.0 Vol % Arterial Blood Carboxyhemoglobin 1.3 % 1.2 % Arterial Blood Methemoglobin 1.0 % 1.1 % Blood Gas Hemoglobin 10.8 G/DL 9.8 G/DL Oxygen Delivery Device VENTILATOR VENTILATOR Blood Gas Ventilator Setting SEE COMMENTS SEE COMMENT Blood Gas Inspired Oxygen 30 % 30 % Blood Urea Nitrogen 8 MG/DL 7 MG/DL Creatinine 0.53 MG/DL 0.52 MG/DL Random Glucose 307 MG/DL 260 MG/DL Calcium Level 9.6 MG/DL 9.3 MG/DL Sodium Level 143 MEQ/L 146 MEQ/L Potassium Level 3.3 MEQ/L 3.7 MEQ/L Chloride Level 111 MEQ/L 114 MEQ/L Carbon Dioxide Level 22.5 MEQ/L 22.1 MEQ/L Anion Gap 10 MEQ/L 10 MEQ/L Estimat Glomerular Filtration Rate 143 ML/MIN 147 ML/MIN Test 09/07/17 11:44 09/07/17 16:50 09/08/17 05:00 White Blood Count 9.9 TH/MM3 10.0 TH/MM3 Red Blood Count 3.46 MIL/MM3 3.27 MIL/MM3 Hemoglobin 9.3 GM/DL 9.0 GM/DL Hematocrit 29.1 % 27.4 % Mean Corpuscular Volume 84.1 FL 83.7 FL Mean Corpuscular Hemoglobin 27.0 PG 27.6 PG Mean Corpuscular Hemoglobin Concent 32.1 % 32.9 % Red Cell Distribution Width 15.0 % 15.1 % Platelet Count 287 TH/MM3 294 TH/MM3 Mean Platelet Volume 7.9 FL 7.6 FL Neutrophils (%) (Auto) 74.4 % 66.8 % Lymphocytes (%) (Auto) 10.3 % 14.5 % Monocytes (%) (Auto) 13.8 % 17.0 % Eosinophils (%) (Auto) 0.9 % 0.9 % Basophils (%) (Auto) 0.6 % 0.8 % Neutrophils # (Auto) 7.3 TH/MM3 6.7 TH/MM3 Lymphocytes # (Auto) 1.0 TH/MM3 1.4 TH/MM3 Monocytes # (Auto) 1.4 TH/MM3 1.7 TH/MM3 Eosinophils # (Auto) 0.1 TH/MM3 0.1 TH/MM3 Basophils # (Auto) 0.1 TH/MM3 0.1 TH/MM3 CBC Comment AUTO DIFF DIFF FINAL Differential Total Cells Counted 100 Neutrophils % (Manual) 78 % Band Neutrophils % 5 % Lymphocytes % 11 % Monocytes % 5 % Neutrophils # (Manual) 8.3 TH/MM3 Myelocytes 1 % Differential Comment FINAL DIFF MANUAL Platelet Estimate NORMAL Platelet Morphology Comment NORMAL Ovalocytes 1+ Blood Urea Nitrogen 9 MG/DL 10 MG/DL Creatinine 0.68 MG/DL 0.57 MG/DL Random Glucose 303 MG/DL 234 MG/DL Calcium Level 9.5 MG/DL 9.8 MG/DL Sodium Level 144 MEQ/L 144 MEQ/L Potassium Level 3.5 MEQ/L 3.7 MEQ/L Chloride Level 110 MEQ/L 111 MEQ/L Carbon Dioxide Level 25.4 MEQ/L 27.5 MEQ/L Anion Gap 9 MEQ/L 6 MEQ/L Estimat Glomerular Filtration Rate 108 ML/MIN 132 ML/MIN (Volodymyr Kumar) Medical Decision Making Impression and Plan Impression: 57 y/o female TBI following slip and fall on wet grass, she hit her face on concrete sidewalk, CT Brain on arrival with right subdural hematoma, diffuse SAH she underwent right side craniotomy for evacuation of subdural hematoma on 08/31 respiratory failure, reintubated 09/01/17 f/u CT Head 09/02 with improvement of right subdural hematoma, stable right temporal/parietal intraparenchymal hematoma, small right cerebellar contusion, and diffuse SAH, no new ICH f/u CT Head 09/05 stable to improving right temporal/parietal and cerebellar ICH EEG 09/01 neg for seizure uncontrolled hypertension requiring sedatives Patient remains obtunded, is sedated, moves all extremities to noxious stimulation. Labs reviewed. Plan: Critical care management per Culinary Instructor. Continue sedation and vent weaning as tolerated. Serial neuro checks and follow up exam. (Volodymyr Kumar) Attending Statement The exam, history, and the medical decision-making described in the above note were completed with the assistance of the mid-level provider. I reviewed and agree with the findings presented. I attest that I had a [id number] encounter with the patient on the same day, and personally performed and documented my assessment and findings in the medical record. On my examination today the patient remains intubated on propofol. Moderate eye-opening to sternal rub No motor response to deep pain all extremities Scalp incision on the right side is dry and intact with sidney in place. No significant change in overall neurologic exam. Continuing CPAP trials Insulin sliding scale Keppra for seizure prophylaxis Ulcer prophylaxis Non-chemical DVT prophylaxis (Jameson Jaime MD) Volodymyr KumarP Sep 08, 2017 09:45 Jameson Jaime MD Sep 08, 2017 21:25
[2017-09-08] MEDS: FAMOTIDINE 20 MG/2 ML VIAL IV PUSH SCH ×2 (10:22→23:21)
[2017-09-08] MEDS: TOLTERODINE TARTRATE 2 MG CAP LA PO SCH (10:23)
[2017-09-08] MEDS: hydrALAZINE HCL 100 MG TAB PO SCH ×2 (10:23→18:06)
[2017-09-08] MEDS: ACETAMINOPHEN 650 MG/20.3 ML UDC PO PRN (12:26)
[2017-09-08] MEDS ORDERED: METOPROLOL TARTRATE 25 MG TAB PO SCH (18:00)
[2017-09-08 18:23] LABS: BICARBONATE 28.1 MEQ/L (21.0-32.0); POTASSIUM 3.7 MEQ/L (3.5-5.1)
[2017-09-08] MEDS: RESP: ALBUTEROL 2.5 MG/3 ML NEB (PRN) INH (20:05)
[2017-09-08] MEDS: ATORVASTATIN 40 MG TAB PO SCH (20:21)
[2017-09-08] MEDS: DOXEPIN HCL 10 MG CAP PO SCH (20:21)
[2017-09-08] MEDS: MUPIROCIN 2% OINT 1 APPLIC/GM SYR EACH NARE SCH (21:06)
[2017-09-08] MEDS: LABETALOL HCL 100 MG/20 ML VIAL IV PUSH PRN (21:14)
[2017-09-09] VITALS (18 sets, daily range): BP systolic 140–167; BP diastolic 67–91; PULSE 80–94; RESP 16–24; TEMP 98.4–100.4; O2SAT 98–100
[2017-09-09] MEDS: PROPOFOL 1000 MG/100 ML INJ 100 ML IV PRN ×5 (00:14→22:21)
[2017-09-09] MEDS: LABETALOL HCL 100 MG/20 ML VIAL IV PUSH PRN ×6 (00:15→23:00)
[2017-09-09] MEDS: hydrALAZINE HCL 100 MG TAB PO SCH ×3 (01:34→17:16)
[2017-09-09 01:59] LABS: AUTOMATED NEUTROPHIL # 7.1 TH/MM3 (1.8-7.7); BASOPHIL # 0.1 TH/MM3 (0-0.2); BASOPHIL % 0.8 % (0.0-2.0); EOSINOPHIL # 0.1 TH/MM3 (0-0.4); EOSINOPHIL % 1.4 % (0.0-4.0); HEMATOCRIT 24.6 % (35.0-46.0); LYMPHOCYTE # 2.2 TH/MM3 (1.0-4.8); MEAN CORPUSCULAR HEMOGLOBIN 27.3 PG (27.0-34.0); MEAN CORPUSCULAR HGB CONC 32.5 % (32.0-36.0); NEUT % 64.8 % (16.0-70.0); PLATELET COUNT 296 TH/MM3 (150-450); RED BLOOD COUNT 2.93 MIL/MM3 (4.00-5.30); RED CELL DISTRIBUTION WIDTH 14.7 % (11.6-17.2)
[2017-09-09 02:01] LABS: HEMO FLAGS AUTO DIFF
[2017-09-09 02:14] LABS: BICARBONATE 28.3 MEQ/L (21.0-32.0); POTASSIUM 3.4 MEQ/L (3.5-5.1)
[2017-09-09 02:42] LABS: BANDS 9 % (0-6); EOSINOPHILS 1 % (0-4); NEUTROPHIL # MANUAL DIFF 8.5 TH/MM3 (1.8-7.7); POLYS (SEG NEUTROPHILS) 68 % (16-70); WBC DIFF SAMPLE 100
[2017-09-09 02:43] LABS: PLATELET ESTIMATE SMEAR NORMAL (NORMAL); PLATELET MORPHOLOGY NORMAL (NORMAL); SCAN/DIFF FINAL DIFF MANUAL
[2017-09-09 02:44] LABS: OVALOCYTES 1+ (NORMAL)
[2017-09-09] MEDS: fentaNYL DRIP 250 ML IV PRN (02:45)
[2017-09-09] MEDS: POTASSIUM CHLOR 40 MEQ PREMIX 100 ML IV PRN (03:00)
[2017-09-09] MEDS: CHLORHEXIDINE GLUCONATE 2 % 1 PACK (2 CLOTHS) TOP SCH (03:09)
[2017-09-09] MEDS: hydrALAZINE HCL 20 MG/ML VIAL IV PUSH PRN ×2 (04:17→12:14)
[2017-09-09] MEDS: ARTIFICIAL TEARS OPTH SOLN 15 ML BTL EACH EYE SCH ×3 (05:09→22:00)
[2017-09-09] MEDS: ISOSORBIDE DINITRATE 10 MG TAB PO SCH ×3 (05:09→22:20)
[2017-09-09] MEDS: INSULIN NovoLIN REGULAR SUPPLEMENTAL SCALE SQ SCH ×3 (05:34→17:16)
--- NOTE | 2017-09-09 08:45 | HHI.CCPN ---
Subjective Remarks/Hospital Course 57-year-old AA female . Date of admission 08/30/2017. Past medical history includes schizoaffective/bipolar, depression, seizure disorder, hypertension, dyslipidemia, diabetes and allergic rhinitis. She is not on any blood thinners or aspirin. This patient was walking from [employer] in approximately 6 AM this morning when she suffered a fall and landed on the right side of her face.. She states she slipped in the wet grass hitting her face on the concrete. No loss of consciousness. Not seizure activity noted. Not tongue biting. No incontinence of stool or urine. 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 Patient states that she's been having a headache and right-sided facial pain since. 08/30 CT of the brain showed a right frontotemporal subdural hematoma 1.6 cm with a 3 mm right to left shift. Maxillofacial CT revealed a nondisplaced right nasal fracture. CT spine negative. CBC showed normocytic anemia. BMP is pending. Elevated PTT coags at 33. Patient was loaded with 500 mg levetiracetam, given as needed for elevated blood pressure stabilized in the ED. Neurosurgical consultation was requested with Dr. Aiken. 08/31: Afebrile. CT brain revealed increased diameter right-sided subdural hematoma up to 1.9 cm. Shift is 1 mm right to left. Positive headache. No seizure activity. No real focal neurological deficits. 09/01: Patient subjective a weak left upper and lower extremity greater than right. Mumbling words. Stat CT brain revealed 2.6 cm image right intraparenchymal hemorrhage on the right temporal parietal region, 0.9 cm right cerebellar hemorrhage and bilateral subarachnoid hemorrhage convex's. Notified Dr. Aiken. Patient was intubated for airway protection and central line placed for hypertonic saline 09/02: Tmax 99.9. Improved subarachnoid hemorrhage. Stable right intraparenchymal hemorrhages. Potassium and phosphorus been replaced. No bowel movement. Subjective 09/03: Currently afebrile. Remains on propofol and fentanyl drips for sedation. Tolerating tube feeds at goal. Arousable with open eyes but not following commands currently. 09/04: Remains sedated, orally intubated on mechanical ventilation. Tolerating tube feeds. 09/05: Remains sedated, orally intubated on mechanical ventilation. Tolerating tube feeds. 09/06: Breathes over vent despite sedation. Withdraws limbs. 09/07: Remains sedated, orally intubated on mechanical ventilation. Tolerating tube feeds. 09/08: Will work toward extubation when OK with Neurosurgery. 09/09: Remains sedated, orally intubated on mechanical ventilation. Tolerating tube feeds. Objective Vital Signs Date Time Temp Pulse Resp B/P (MAP) Pulse Ox O2 Delivery O2 Flow Rate FiO2 09/09/17 06:00 88 09/09/17 04:11 100 40 09/09/17 04:00 99.0 18 140/69 (92) 09/06/17 20:35 Ventilator Intake and Output 09/09/17 09/09/17 09/10/17 08:00 16:00 00:00 Intake Total 961 ml Output Total 1000 ml Balance -39 ml Result Diagram: 09/09/1713409/09/17134 Imaging Last Impressions Chest X-Ray 09/03/17 06 Signed Impressions: Service Date/Time: Sunday, September 03, 2017 04:42 - CONCLUSION: 1. Bibasilar atelectasis, slightly improved in the right lower lobe but slightly worsened left lower lobe. Fantasma Miller MD Head CT 09/02/17 0600 Signed Impressions: Service Date/Time: Saturday, September 02, 2017 04:41 - CONCLUSION: 1. Mild interval improvement in subarachnoid hemorrhage over the parietal convexities. 2. Stable intraparenchymal hemorrhage in the right parietal lobe and right cerebellar hemisphere. 3. The subdural drainage catheter remains in place with no residual subdural hematoma. 4. No new hemorrhage or mass effect. Tyree Wise MD Abdomen X-Ray 09/01/17 0000 Signed Impressions: Service Date/Time: Friday, September 01, 2017 18:29 - CONCLUSION: Nasogastric tube coiled in the stomach with the tip projecting towards the GE junction. Migue Cuenca Jr., MD Maxillofacial CT 08/30/17 0000 Signed Impressions: Service Date/Time: August 15:13 - CONCLUSION: 1. There is a minimally depressed right nasal bone fracture with adjacent soft tissue swelling. No other fracture is visualized. 2. Please refer to head CT report for description of the right subdural hematoma. Nacho Buckley MD Lumbar Spine CT 08/30/17 0000 Signed Impressions: Service Date/Time: August 17:59 - CONCLUSION: Negative examination. Alec Latham MD Cervical Spine CT 08/30/17 0000 Signed Impressions: Service Date/Time: August 15:12 - CONCLUSION: 1. No acute fracture or subluxation. Skinny Muñiz MD Objective Remarks GENERAL: 57-year-old AA female, resting in bed orotracheally intubated SKIN: Warm and dry. Abrasions to the right cheek and chin with evolving ecchymoses HEAD: Status post right craniotomy with subdural, scalp drain in place EYES: Pupils equal and round about 3 mm bilaterally and reactive. Right eyelid swollen, protuberant globe. No scleral icterus. No injection or drainage. ENT: No nasal bleeding or discharge. Mucous membranes pink and moist. NECK: Trachea midline. Orally intubated. CARDIOVASCULAR: Tachycardia, RR. S1, S2. No S4. Without murmur. No JVD. RESPIRATORY: Clear to auscultation. Breath sounds equal bilaterally. Nio adventitious sounds. GASTROINTESTINAL: Abdomen soft, non-tender, nondistended. Bowel sounds are sluggish but appreciated MUSCULOSKELETAL: Extremities without significant peripheral edema. No obvious deformities. Well perfused. NEUROLOGICAL: Currently sedated on propofol and fentanyl drips. Eyes open. Withdraws to pain bilateral upper and lower extremities. Not following commands Date of Insertion: Sep 01, 2017 Line: Central Venous Catheter Side: Left Location: Internal, Jugular A/P Assessment and Plan Neuro/Psych: s/p right craniotomy with evacuation of subdural hematoma 2.6 cm right parietal/temporal intracranial hemorrhage, 0.9 cm right subdural hemorrhage and bilateral subarachnoid hemorrhage Right subdural hematoma - 1.6 cm fronto temporal with a 3 mm right to left shift Right closed nondisplaced nasal fracture Schizoaffective disorder Bipolar disorder Depression Seizure disorder NOS Propofolfentanyl drips for sedation/analgesia while intubated Goal of RASS -[address] brain 08/30 revealed a right frontal temporal subdural hematoma 1.6 cm thickness with a 3 mm right to left shift. Nondisplaced right nasal bone fracture. CT brain 08/31 revealed 2.6 cm right parietal intracranial hemorrhage, 0.9 cm right subdural hemorrhage and bilateral subarachnoid hemorrhage CT brain 09/01 revealed stable intraparenchymal hemorrhage improving subarachnoid hemorrhage at the convex CT Head 09/05 with stable areas of ICH/ SAH. EEG 08/31 revealed generalized slowing/encephalopathy. Disruption right side secondary to intraparenchymal hemorrhage. Levetiracetam 500 mg IV twice a day for seizure prophylaxis 7 days Resumed home dose of valproic acid 250mg BID via OGT. Goal keep systolic blood pressure less than 140. Neurochecks Head of bed at 30 Stopped hypertonic saline 09/05 per neurosurgery. Evaluated by Dr. Aiken/neurosurgery Continue doxepin 10 mg by mouth daily Holding loratadine 10 mg by mouth daily CV: Hypertension Dyslipidemia Resume metoprolol 100 mg via OGT L18lutl for hypertension(was DCed by pharmacy) . Increase Prinivil to 20mg BID. Continue isosorbide mononitrate 30 mg by mouth daily but switch to isosorbide dinitrate 10 mg 3 times a day As needed labetalol, hydralazine, Nitropaste and nicardipine drip to keep systolic blood pressure less than 140. Added Norvasc 10 mg via OG tube daily on 09/07. Continue atorvastatin 40 mg by mouth daily for dyslipidemia Resp: PRVC 16/500/11/16/39 Ventilator bundle Albuterol/after aerosols every 6 hours with albuterol aerosols every 2 hours prn dyspnea Spontaneous breathing trials daily Chest x-ray revealed bilateral lower lobe atelectasis left greater than right. GI: Continue tube feeding with vital 1.5 goal 50 cc an hour Famotidine for GI prophylaxis Docusate sodium/senna and polyethylene glycol twice a day for bowel regimen. Add lactulose and mineral oil 1 today and a one-time dose of 12 mg subcutaneous methylnaltrexone : Incontinence Porter catheter if indicated for accurate I's and O's in a critically ill patient Holding Tolterodine 2 mg by mouth daily. Resume when clinically indicated Endo: Diabetes History of hypothyroidism/thyroid nodules Holding metformin 1000 mg daily and Linagliptin 5 mg daily for diabetes. Sliding-scale insulin with Accu-Cheks to maintain euglycemia increase detemir 15 units twice a day Renal: History of renal cell carcinoma status post right nephrectomy KVO IVF 09/05 Monitor urine output Accurate I's and O's Follow-up ER BMP not completed Heme: Normocytic anemia Elevated PTT Thrombocytopenia Monitor CBC daily. Follow trends Does not meet transfusion thresholds at this time ID: Patient noted to have fevers and left shift with bands noted on peripheral smear. We will obtain allen cultures and initiate empiric antibiotic coverage with IV Zosyn 09/09 FEN: Hypophosphatemia Hypokalemia Replace electrolytes as clinically indicated per ICU electrolyte protocol. Holding cholecalciferol 1000 U daily. Resume when clinically indicated MSK: Osteoarthritis Physical therapy evaluate and treat Access -Left IJ CVL Prophylaxis - GI famotidine - DVT- SCD/holding pharmacological prophylaxis in light of subdural hematoma Patient remains critical with SDH, cerebral edema status post craniotomy Overall impression: Remains critically ill after evacuation of SDH. Unable to wean ventilator. Fails SBTs daily. Need more aggressibe BP control. Critical care 35 mins Skyler Taylor MD Sep 09, 2017 08:45
[2017-09-09] MEDS: SODIUM CHLORIDE 0.9% FLUSH 10 ML FLUSH IV FLUSH SCH ×3 (09:00→19:57)
[2017-09-09] MEDS: LACTULOSE SYRUP 20 GM/30 ML CUP PO SCH ×2 (09:08→19:56)
[2017-09-09] MEDS: CHOLECALCIFEROL (VIT D3) 1000 UNIT TAB PO SCH (09:08)
[2017-09-09] MEDS: DOCUSATE SODIUM 100 MG/10 ML UDC PO SCH ×2 (09:08→19:56)
[2017-09-09] MEDS: TOLTERODINE TARTRATE 2 MG CAP LA PO SCH (09:08)
[2017-09-09] MEDS: LISINOPRIL 20 MG TAB PO SCH ×2 (09:09→19:56)
[2017-09-09] MEDS: POLYETHYLENE GLYCOL 17 GM PKG PO SCH ×2 (09:09→19:56)
[2017-09-09] MEDS: VALPROIC ACID SYRUP 250 MG/5 ML UDC OG-TUBE SCH ×2 (09:09→19:56)
[2017-09-09] MEDS: METOPROLOL TARTRATE 25 MG TAB PO SCH ×2 (09:09→19:56)
[2017-09-09] MEDS: SENNOSIDES SYRUP 8.8 MG/5 ML CUP PO SCH ×2 (09:09→19:58)
[2017-09-09] MEDS: levETIRAcetam INJ 500 MG in SODIUM CHLORIDE 0.9% INJ 100 ML IV SCH ×2 (09:10→19:57)
[2017-09-09] MEDS: CHLORHEXIDINE 0.12% (ORAL KIT) 15 ML CUP MT SCH ×2 (09:10→19:57)
[2017-09-09] MEDS: FUROSEMIDE 40 MG TAB PO SCH (09:10)
[2017-09-09] MEDS: MUPIROCIN 2% OINT 1 APPLIC/GM SYR EACH NARE SCH ×2 (09:10→19:57)
[2017-09-09] MEDS: INSULIN DETEMIR 100 UNITS/ML VIAL SQ SCH ×2 (09:11→19:58)
--- NOTE | 2017-09-09 09:53 | RADRPT ---
EXAM DATE/TIME: 09/09/2017 09:48 [facility] COMPARISON: CHEST SINGLE AP, September 03, 2017, 4:42. INDICATIONS : Short of breath. MEDICAL HISTORY : Hypertension. SURGICAL HISTORY : None. ENCOUNTER: Subsequent ACUITY: 1 week PAIN SCORE: Non-responsive. LOCATION: Bilateral chest FINDINGS: The endotracheal tube has its tip 3 cm above the zara. A nasogastric tube is looped in the stomach . Bibasilar atelectasis is noted. The heart is stable. A left internal jugular central line is unc hanged with its tip in the superior vena cava. No pneumothorax is noted. CONCLUSION: 1. Bibasilar atelectasis. 2. Multiple tubes and lines are stable. Good Keller MD on September 09, 2017 at 9:36 Board Certified Radiologist. This report was verified electronically.
[2017-09-09] MEDS: FAMOTIDINE 20 MG/2 ML VIAL IV PUSH SCH ×2 (11:00→22:19)
[2017-09-09] MEDS: PIPERACIL-TAZO 3.375 GM PREMIX 50 ML IV SCH ×3 (11:00→22:19)
[2017-09-09 11:01] LABS: BACTERIA, URINE MANY /hpf; BLOOD, URINE TRACE (NEG); GLUCOSE,URINE 1000 mg/dL (NEG); KETONE, URINE NEG (NEG); NITRITE,URINE NEG (NEG); PH, URINE 6.5 (5.0-8.5); TRANSITIONAL EPI CELLS, URINE 1 /hpf; URINE COLOR YELLOW (YELLW/STRAW)
[2017-09-09 11:02] LABS: COMMENT (UR) CATH-CULTURE IND; CULTURE IF INDICATED CATH CULTURE IND
--- NOTE | 2017-09-09 11:04 | HHI.NSPN ---
(Mikel Kumarshyann CHAWLA) History Chief Complaint: Unable to obtain due to patient's clinical condition. (Volodymyr Kumar Nicki CHAWLA) Interval History This is a 57-year-old female who apparently is status post slip and fall around 6 AM this morning. She states she was on her way to [employer] she had some eggs when she slipped in the wet grass hitting her face on the concrete. No loss of consciousness. Not seizure activity noted. Not tongue biting. No incontinence of stool or urine. 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 Patient states that she' s been having a headache and right-sided facial pain since. She denies any chest pain, shortness of breath, change in vision, numbness or tingling anywhere , neck pain, back pain, loss or change in bowel or bladder, or being on any blood thinners. She is moving where both upper and lower extremities without any focal deficit. CT of the brain showed a right sided accurate subdural hematoma causing mass effect and midline shift. The subdural was hematoma 1.6 cm thick with a 3 mm right to left shift. Maxillofacial CT revealed a nondisplaced right nasal fracture. CT spine negative. Neurosurgical consultation was requested 09/01: Letahrgic today. Open eyes follows commands withn all [address] brain showed new frontal and post fossa bleed 09/02: remains intubated, off sedation she slightly opens eyes and moves all four extremities. EEG yesterday neg for seizures. 09/03: intubated, again off sedation reports to open her eyes and moves x 4, but not following commands 09/04: nursing reports minimal eye opening, moves x 4. intubated and sedated. 09/05: f/u CT Head completed, stable right temporal and cerebellar hemorrhage, no significant midline shift or mass effect. remains intubated and sedated. 09/06: remains intubated and well sedated for blood pressure control. 09/07: sedation lowered, eyes open, moving legs intermittently?to command. did not follow in the upper extremities. 09/08: The patient is obtunded but does have propofol infusing for sedation. Nursing reports that she does move all extremities to noxious stimulation and the right upper and both lower spontaneously. 09/09: The patient is seen in rounds with Dr Jaime this morning. She continues to be obtunded although she does have propofol for sedation. (Volodymyr Kumar) System Review Comments Unable to obtain due to patient's clinical condition. (Volodymyr Kumar) Exam Results 09/07/17 09/07/17 09/08/17 09/08/17 09/09/17 09/09/17 06:00 18:00 06:00 18:00 06:00 18:00 Intake Total 2511 ml 5606 ml 1647 ml 1661 ml 1266 ml Output Total 2000 ml 3600 ml 1100 ml 1525 ml 360.0 ml 1000.0 ml Balance 511 ml 2006 ml 547 ml 136 ml -360.0 ml 266.0 ml IV Total 1962 ml 5056 ml 955 ml 1007 ml 771 ml Tube Feeding 549 ml 550 ml 532 ml 624 ml 495 ml Tube Irrigant 160 ml 30 ml Output Urine Total 2000 ml 3600 ml 1100 ml 1525 ml 350 ml 1000 ml Tube Feeding Residual Discard 0 ml 0 ml 0 ml 0 ml 10.0 ml 0 ml # Bowel Movements 0 0 Vital Signs Date Time Temp Pulse Resp B/P (MAP) Pulse Ox O2 Delivery O2 Flow Rate FiO2 09/09/17 10:20 98 40 09/09/17 10:00 83 09/09/17 08:00 94 09/09/17 08:00 40 09/09/17 08:00 99.2 94 19 167/86 (113) 100 09/09/17 06:00 88 09/09/17 04:11 100 40 09/09/17 04:00 99.0 93 18 140/69 (92) 100 09/09/17 04:00 40 09/09/17 04:00 88 09/09/17 02:00 86 09/09/17 01:12 100 40 09/09/17 00:00 40 09/09/17 00:00 87 09/09/17 00:00 98.5 87 16 145/67 (93) 100 09/08/17 22:46 100 40 09/08/17 22:00 98 09/08/17 20:13 98 40 09/08/17 20:00 101 09/08/17 20:00 40 09/08/17 20:00 98.6 94 20 139/67 (91) 98 09/08/17 18:00 92 09/08/17 17:01 97 40 09/08/17 16:00 40 09/08/17 16:00 100.0 98 20 144/64 (90) 98 09/08/17 16:00 97 09/08/17 14:00 97 09/08/17 13:05 97 40 09/08/17 12:30 40 09/08/17 12:00 40 09/08/17 12:00 100.7 111 19 138/67 (90) 97 09/08/17 12:00 111 09/08/17 10:00 96 09/08/17 09:35 98 40 09/08/17 08:00 95 09/08/17 08:00 99.7 98 16 108/58 (75) 98 Arterial Line 09/08/17 08:00 40 09/08/17 06:00 98 09/08/17 04:47 102 148/70 09/08/17 04:00 101 09/08/17 04:00 40 09/08/17 04:00 98.8 101 15 150/70 (96) 98 09/08/17 03:43 96 40 09/08/17 02:00 98 09/08/17 01:01 94 157/67 09/08/17 00:00 40 09/08/17 00:00 76 09/08/17 00:00 99.1 94 15 157/67 (97) 100 09/07/17 22:51 100 40 09/07/17 22:00 91 09/07/17 21:14 92 138/68 09/07/17 20:22 100 40 09/07/17 20:22 100 40 09/07/17 20:00 40 09/07/17 20:00 86 09/07/17 20:00 99.4 86 14 125/69 (87) 97 09/07/17 16:29 100 40 09/07/17 16:00 40 09/07/17 16:00 100.0 100 14 154/64 (94) 100 09/07/17 15:44 103 09/07/17 13:21 99 40 09/07/17 12:00 99.0 98 14 147/65 (92) 98 09/07/17 12:00 40 09/07/17 10:29 40 09/07/17 10:15 93 40 09/07/17 10:00 40 09/07/17 09:29 95 40 09/07/17 09:29 40 09/07/17 09:29 40 09/07/17 09:22 78 09/07/17 08:01 98 40 09/07/17 08:00 98.9 89 15 125/69 (87) 98 09/07/17 08:00 40 09/07/17 06:00 99 09/07/17 04:12 97 40 09/07/17 04:00 98 09/07/17 04:00 30 09/07/17 04:00 100.1 98 24 97 146/66 (92) 09/07/17 04:00 98 146/66 09/07/17 02:00 96 09/07/17 01:53 96 152/62 09/07/17 00:00 100.0 88 14 100 144/68 (93) 09/07/17 00:00 88 09/07/17 00:00 30 09/06/17 23:47 88 139/60 09/06/17 23:44 100 40 09/06/17 22:00 92 09/06/17 21:29 83 144/64 09/06/17 20:35 100 Ventilator 40 09/06/17 20:35 100 40 09/06/17 20:35 100 40 09/06/17 20:00 30 09/06/17 20:00 82 09/06/17 20:00 99.3 82 14 100 150/64 (92) 09/06/17 19:37 83 148/72 09/06/17 18:30 80 134/61 09/06/17 18:00 80 09/06/17 16:28 86 148/66 09/06/17 16:00 99.1 86 16 100 141/63 (89) 09/06/17 16:00 30 09/06/17 16:00 100 40 09/06/17 16:00 80 09/06/17 14:16 78 130/59 09/06/17 14:00 78 09/06/17 12:32 79 133/64 09/06/17 12:02 100 40 09/06/17 12:00 98.9 79 14 100 135/65 (88) 09/06/17 12:00 30 09/06/17 12:00 79 (Volodymyr Kumar) Physical Examination From this point on this practitioner acts as a scribe. GENERAL: Intubated & mechanically ventilated, sedated with propofol 25 mcg/kg/ min, fentanyl 200 mcg/hr infusing for pain. HEENT: Normocephalic, well-approximated right craniotomy surgical incision dry w /sidney intact, left eye proptosis, bilateral subconjunctival erythema & swelling, orally intubated, OGT. NEUROLOGIC: Intubated, sedated on propofol. Positive corneal, cough & gag reflexes. Does not follow any commands. Minimal eye opening to noxious stimulation. Left proptosis, moderate oculocephalic, dysconjugate. Flexes legs spontaneously. Mild extension of right upper extremity to deep chest pain. (Volodymyr Kumar) Lab, Micro, Other Results Laboratory Tests Test 09/06/17 20:40 09/07/17 04:55 09/07/17 11:44 09/07/17 16:50 Blood Urea Nitrogen 8 MG/DL 7 MG/DL 9 MG/DL Creatinine 0.53 MG/DL 0.52 MG/DL 0.68 MG/DL Random Glucose 307 MG/DL 260 MG/DL 303 MG/DL Calcium Level 9.6 MG/DL 9.3 MG/DL 9.5 MG/DL Sodium Level 143 MEQ/L 146 MEQ/L 144 MEQ/L Potassium Level 3.3 MEQ/L 3.7 MEQ/L 3.5 MEQ/L Chloride Level 111 MEQ/L 114 MEQ/L 110 MEQ/L Carbon Dioxide Level 22.5 MEQ/L 22.1 MEQ/L 25.4 MEQ/L Anion Gap 10 MEQ/L 10 MEQ/L 9 MEQ/L Estimat Glomerular Filtration Rate 143 ML/MIN 147 ML/MIN 108 ML/MIN White Blood Count 9.9 TH/MM3 Red Blood Count 3.46 MIL/MM3 Hemoglobin 9.3 GM/DL Hematocrit 29.1 % Mean Corpuscular Volume 84.1 FL Mean Corpuscular Hemoglobin 27.0 PG Mean Corpuscular Hemoglobin Concent 32.1 % Red Cell Distribution Width 15.0 % Platelet Count 287 TH/MM3 Mean Platelet Volume 7.9 FL Neutrophils (%) (Auto) 74.4 % Lymphocytes (%) (Auto) 10.3 % Monocytes (%) (Auto) 13.8 % Eosinophils (%) (Auto) 0.9 % Basophils (%) (Auto) 0.6 % Neutrophils # (Auto) 7.3 TH/MM3 Lymphocytes # (Auto) 1.0 TH/MM3 Monocytes # (Auto) 1.4 TH/MM3 Eosinophils # (Auto) 0.1 TH/MM3 Basophils # (Auto) 0.1 TH/MM3 CBC Comment AUTO DIFF Differential Total Cells Counted 100 Neutrophils % (Manual) 78 % Band Neutrophils % 5 % Lymphocytes % 11 % Monocytes % 5 % Neutrophils # (Manual) 8.3 TH/MM3 Myelocytes 1 % Differential Comment FINAL DIFF MANUAL Platelet Estimate NORMAL Platelet Morphology Comment NORMAL Ovalocytes 1+ Test 09/08/17 05:00 09/08/17 17:50 09/09/17 01:35 09/09/17 09:42 White Blood Count 10.0 TH/MM3 11.0 TH/MM3 Red Blood Count 3.27 MIL/MM3 2.93 MIL/MM3 Hemoglobin 9.0 GM/DL 8.0 GM/DL Hematocrit 27.4 % 24.6 % Mean Corpuscular Volume 83.7 FL 84.0 FL Mean Corpuscular Hemoglobin 27.6 PG 27.3 PG Mean Corpuscular Hemoglobin Concent 32.9 % 32.5 % Red Cell Distribution Width 15.1 % 14.7 % Platelet Count 294 TH/MM3 296 TH/MM3 Mean Platelet Volume 7.6 FL 7.8 FL Neutrophils (%) (Auto) 66.8 % 64.8 % Lymphocytes (%) (Auto) 14.5 % 20.0 % Monocytes (%) (Auto) 17.0 % 13.0 % Eosinophils (%) (Auto) 0.9 % 1.4 % Basophils (%) (Auto) 0.8 % 0.8 % Neutrophils # (Auto) 6.7 TH/MM3 7.1 TH/MM3 Lymphocytes # (Auto) 1.4 TH/MM3 2.2 TH/MM3 Monocytes # (Auto) 1.7 TH/MM3 1.4 TH/MM3 Eosinophils # (Auto) 0.1 TH/MM3 0.1 TH/MM3 Basophils # (Auto) 0.1 TH/MM3 0.1 TH/MM3 CBC Comment DIFF FINAL AUTO DIFF Differential Comment FINAL DIFF MANUAL Blood Urea Nitrogen 10 MG/DL 14 MG/DL 17 MG/DL Creatinine 0.57 MG/DL 0.68 MG/DL 0.65 MG/DL Random Glucose 234 MG/DL 228 MG/DL 238 MG/DL Calcium Level 9.8 MG/DL 9.6 MG/DL 9.6 MG/DL Sodium Level 144 MEQ/L 143 MEQ/L 144 MEQ/L Potassium Level 3.7 MEQ/L 3.7 MEQ/L 3.4 MEQ/L Chloride Level 111 MEQ/L 109 MEQ/L 110 MEQ/L Carbon Dioxide Level 27.5 MEQ/L 28.1 MEQ/L 28.3 MEQ/L Anion Gap 6 MEQ/L 6 MEQ/L 6 MEQ/L Estimat Glomerular Filtration Rate 132 ML/MIN 108 ML/MIN 113 ML/MIN Differential Total Cells Counted 100 Neutrophils % (Manual) 68 % Band Neutrophils % 9 % Lymphocytes % 16 % Monocytes % 6 % Eosinophils % 1 % Neutrophils # (Manual) 8.5 TH/MM3 Platelet Estimate NORMAL Platelet Morphology Comment NORMAL Ovalocytes 1+ (Volodymyr Kumar) Medical Decision Making Impression and Plan The following is carried forward from the NSGY note. Impression: 57 y/o female TBI following slip and fall on wet grass, she hit her face on concrete sidewalk, CT Brain on arrival with right subdural hematoma, diffuse SAH she underwent right side craniotomy for evacuation of subdural hematoma on 08/31 respiratory failure, reintubated 09/01/17 f/u CT Head 09/02 with improvement of right subdural hematoma, stable right temporal/parietal intraparenchymal hematoma, small right cerebellar contusion, and diffuse SAH, no new ICH f/u CT Head 09/05 stable to improving right temporal/parietal and cerebellar ICH EEG 09/01 neg for seizure uncontrolled hypertension requiring sedatives Plan: cont critical care management, cont sedation and vent weaning as tolerated, serial neuro checks, and follow up exam (Volodymyr Kumar) Attending Statement The exam, history, and the medical decision-making described in the above note were completed with the assistance of the mid-level provider. I reviewed and agree with the findings presented. I attest that I had a [id number] encounter with the patient on the same day, and personally performed and documented my assessment and findings in the medical record. My findings on examination today I prescribed as noted above. Continue CPAP trials. No significant overall improvement in neurologic status over the past few days, following craniotomy for traumatic brain injury. (Jameson Jaime MD) Volodymyr Kumar Sep 09, 2017 11:04 Jameson Jaime MD Sep 09, 2017 11:28
[2017-09-09] MEDS: NITROGLYCERIN 2% OINT 1 GM PACKET TOPICAL PRN (16:34)
[2017-09-09 17:01] LABS: BICARBONATE 29.5 MEQ/L (21.0-32.0); POTASSIUM 4.1 MEQ/L (3.5-5.1)
[2017-09-09] MEDS: DOXEPIN HCL 10 MG CAP PO SCH (19:56)
[2017-09-09] MEDS: ATORVASTATIN 40 MG TAB PO SCH (19:56)
[2017-09-09] MEDS: niCARdipine INJ 50 MG in SODIUM CHLORID 0.9% 500 ML INJ 480 ML IV PRN (20:48)
[2017-09-10] VITALS (20 sets, daily range): BP systolic 128–167; BP diastolic 59–79; PULSE 80–104; RESP 15–20; TEMP 98.6–99.8; O2SAT 95–100
[2017-09-10] MEDS: INSULIN NovoLIN REGULAR SUPPLEMENTAL SCALE SQ SCH ×5 (00:07→23:49)
[2017-09-10] MEDS: niCARdipine INJ 50 MG in SODIUM CHLORID 0.9% 500 ML INJ 480 ML IV PRN ×7 (00:51→22:33)
[2017-09-10] MEDS: LABETALOL HCL 100 MG/20 ML VIAL IV PUSH PRN ×3 (01:51→18:47)
[2017-09-10] MEDS: hydrALAZINE HCL 100 MG TAB PO SCH ×3 (01:51→18:04)
[2017-09-10] MEDS: NITROGLYCERIN 2% OINT 1 GM PACKET TOPICAL PRN (03:07)
[2017-09-10] MEDS: PIPERACIL-TAZO 3.375 GM PREMIX 50 ML IV SCH ×4 (03:08→21:15)
[2017-09-10] MEDS: CHLORHEXIDINE GLUCONATE 2 % 1 PACK (2 CLOTHS) TOP SCH (03:08)
[2017-09-10] MEDS: PROPOFOL 1000 MG/100 ML INJ 100 ML IV PRN (04:01)
--- NOTE | 2017-09-10 04:53 | RADRPT ---
EXAM DATE/TIME: 09/10/2017 04:17 [facility] COMPARISON: CT BRAIN W/O CONTRAST, September 05, 2017, 9:46. INDICATIONS : Follow up hemorrhage. RADIATION DOSE: 63.78 CTDIvol (mGy) ; Tabletop CT Head MEDICAL HISTORY : Hypertension. Renal cell carcinoma. SURGICAL HISTORY : Cholecystectomy. Tubal ligation.Nephrectomy, right. ENCOUNTER: Subsequent ACUITY: 2 weeks PAIN SCALE: Non-responsive LOCATION: cranial TECHNIQUE: Multiple contiguous axial images were obtained of the head. Using automated exposure control and adj ustment of the mA and/or kV according to patient size, radiation dose was kept as low as reasonably a chievable to obtain optimal diagnostic quality images. DICOM format image data is available electro nically for review and comparison. FINDINGS: There is stable mild high convexity left frontal subarachnoid blood in mild patchy subarachnoid hemor rhage in the contralateral right frontal region. A stable right frontotemporal parenchymal hematoma i s noted. Minimal intraventricular blood is present. Hemorrhagic density in the posterior fossa has be come inconspicuous. The ventricular size and configuration is stable. No new acute findings are ident ified. Fluid in the facial sinuses and mastoids again noted. CONCLUSION: Stable evolving intracranial hemorrhage with no new acute findings. Nacho Krishnan MD on September 10, 2017 at 4:48 Board Certified Radiologist. This report was verified electronically.
[2017-09-10 05:50] LABS: AUTOMATED NEUTROPHIL # 11.4 TH/MM3 (1.8-7.7); BASOPHIL % 0.3 % (0.0-2.0); EOSINOPHIL # 0.1 TH/MM3 (0-0.4); EOSINOPHIL % 0.4 % (0.0-4.0); HEMO FLAGS DIFF FINAL; LYMPH % 10.7 % (9.0-44.0); LYMPHOCYTE # 1.5 TH/MM3 (1.0-4.8); MEAN CORPUSCULAR HGB CONC 32.5 % (32.0-36.0); MONO % 9.1 % (0.0-8.0); NEUT % 79.5 % (16.0-70.0); PLATELET COUNT 341 TH/MM3 (150-450); RED BLOOD COUNT 3.13 MIL/MM3 (4.00-5.30); RED CELL DISTRIBUTION WIDTH 14.6 % (11.6-17.2); WHITE BLOOD COUNT 14.3 TH/MM3 (4.0-11.0)
[2017-09-10] MEDS: ISOSORBIDE DINITRATE 10 MG TAB PO SCH ×3 (06:07→21:16)
[2017-09-10] MEDS: ARTIFICIAL TEARS OPTH SOLN 15 ML BTL EACH EYE SCH ×3 (06:08→21:15)
[2017-09-10 06:12] LABS: ANION GAP 8 MEQ/L (5-15); AST (GOT) 31 U/L (15-37); BICARBONATE 27.6 MEQ/L (21.0-32.0); BLOOD UREA NITROGEN 15 MG/DL (7-18); CHLORIDE 106 MEQ/L (98-107); GLOMERULAR FILTRATION RATE 117 ML/MIN (>89); POTASSIUM 3.5 MEQ/L (3.5-5.1); SODIUM (NA) 142 MEQ/L (136-145)
[2017-09-10 06:13] LABS: ALT (GPT) 39 U/L (10-53)
[2017-09-10 06:16] LABS: ALKALINE PHOSPHATASE 108 U/L (45-117); TOTAL BILIRUBIN ADULT 0.4 MG/DL (0.2-1.0)
[2017-09-10] MEDS: CHLORHEXIDINE 0.12% (ORAL KIT) 15 ML CUP MT SCH ×2 (08:17→20:32)
[2017-09-10] MEDS: SODIUM CHLORIDE 0.9% FLUSH 10 ML FLUSH IV FLUSH SCH ×3 (09:00→20:32)
[2017-09-10] MEDS: MUPIROCIN 2% OINT 1 APPLIC/GM SYR EACH NARE SCH (09:00)
[2017-09-10] MEDS: POLYETHYLENE GLYCOL 17 GM PKG PO SCH ×3 (09:15→20:32)
[2017-09-10] MEDS: INSULIN DETEMIR 100 UNITS/ML VIAL SQ SCH ×2 (09:17→20:34)
[2017-09-10] MEDS: levETIRAcetam INJ 500 MG in SODIUM CHLORIDE 0.9% INJ 100 ML IV SCH ×2 (09:18→20:32)
[2017-09-10] MEDS: DOCUSATE SODIUM 100 MG/10 ML UDC PO SCH ×2 (09:24→20:34)
[2017-09-10] MEDS: SENNOSIDES SYRUP 8.8 MG/5 ML CUP PO SCH ×2 (09:24→20:33)
[2017-09-10] MEDS: CHOLECALCIFEROL (VIT D3) 1000 UNIT TAB PO SCH (09:25)
[2017-09-10] MEDS: VALPROIC ACID SYRUP 250 MG/5 ML UDC OG-TUBE SCH ×2 (09:25→20:36)
[2017-09-10] MEDS: LISINOPRIL 20 MG TAB PO SCH ×2 (09:25→20:33)
[2017-09-10] MEDS: LACTULOSE SYRUP 20 GM/30 ML CUP PO SCH ×2 (09:25→20:32)
[2017-09-10] MEDS: FUROSEMIDE 40 MG TAB PO SCH (09:28)
[2017-09-10] MEDS: TOLTERODINE TARTRATE 2 MG CAP LA PO SCH (09:28)
[2017-09-10] MEDS: METOPROLOL TARTRATE 25 MG TAB PO SCH ×2 (09:28→20:33)
--- NOTE | 2017-09-10 09:54 | HHI.NSPN ---
(Carmen Chamberlain) Note Status Status: Progress Note (Carmen Chamberlain) Interval History Interval History This is a 57-year-old female who apparently is status post slip and fall around 6 AM this morning. She states she was on her way to [facility] she had some eggs when she slipped in the wet grass hitting her face on the concrete. No loss of consciousness. Not seizure activity noted. Not tongue biting. No incontinence of stool or urine. ..She took her eggs and milk and transported back home because she had to meet the rail car maintenance mechanic. Patient states that she' s been having a headache and right-sided facial pain since. She denies any chest pain, shortness of breath, change in vision, numbness or tingling anywhere , neck pain, back pain, loss or change in bowel or bladder, or being on any blood thinners. She is moving where both upper and lower extremities without any focal deficit. CT of the brain showed a right sided accurate subdural hematoma causing mass effect and midline shift. The subdural was hematoma 1.6 cm thick with a 3 mm right to left shift. Maxillofacial CT revealed a nondisplaced right nasal fracture. CT spine negative. Neurosurgical consultation was requested 09/01: Letahrgic today. Open eyes follows commands withn all [address] brain showed new frontal and post fossa bleed 09/02: remains intubated, off sedation she slightly opens eyes and moves all four extremities. EEG yesterday neg for seizures. 09/03: intubated, again off sedation reports to open her eyes and moves x 4, but not following commands 09/04: nursing reports minimal eye opening, moves x 4. intubated and sedated. 09/05: f/u CT Head completed, stable right temporal and cerebellar hemorrhage, no significant midline shift or mass effect. remains intubated and sedated. 09/06: remains intubated and well sedated for blood pressure control. 09/07: sedation lowered, eyes open, moving legs intermittently?to command. did not follow in the upper extremities. 09/10: on nicardipine drip. remains intubated on propofol drip. mildly opens eyes, withdraws to pain x 4 ext (Carmen Chamberlain) Labs, Micro, & Vital Signs Results Date Time Temp Pulse Resp B/P (MAP) Pulse Ox O2 Delivery O2 Flow Rate FiO2 09/10/17 08:29 40 09/10/17 08:28 97 40 09/10/17 08:25 99 40 09/10/17 08:00 99.8 102 16 167/79 (108) 98 09/10/17 08:00 102 09/10/17 07:03 86 140/69 09/10/17 06:48 89 147/70 09/10/17 06:24 99 121/66 09/10/17 06:00 92 09/10/17 05:47 82 126/66 09/10/17 05:00 100 100 09/10/17 05:00 99 40 09/10/17 04:15 90 128/65 09/10/17 04:01 89 128/65 09/10/17 04:00 40 09/10/17 04:00 99.1 90 20 128/65 (86) 98 09/10/17 04:00 85 09/10/17 02:00 90 09/10/17 00:51 91 134/61 09/10/17 00:39 96 40 09/10/17 00:15 92 142/60 09/10/17 00:00 92 09/10/17 00:00 40 09/10/17 00:00 98.6 92 20 130/59 (82) 100 09/09/17 22:01 90 144/67 09/09/17 22:00 92 09/09/17 21:52 91 143/67 09/09/17 21:21 87 143/67 09/09/17 20:48 86 143/87 09/09/17 20:00 92 09/09/17 20:00 98.4 87 16 151/85 (107) 100 09/09/17 20:00 40 09/09/17 19:48 100 40 09/09/17 18:00 92 09/09/17 17:13 100 40 09/09/17 16:00 80 09/09/17 16:00 40 09/09/17 16:00 99.8 80 24 166/91 (116) 99 09/09/17 14:00 82 09/09/17 12:15 99 40 09/09/17 12:00 81 09/09/17 12:00 100.4 81 17 157/83 (107) 99 09/09/17 12:00 40 09/09/17 10:20 98 40 09/09/17 10:00 83 Constitutional Vital Signs Date Time Temp Pulse Resp B/P (MAP) Pulse Ox O2 Delivery O2 Flow Rate FiO2 09/10/17 08:29 40 09/10/17 08:28 97 40 09/10/17 08:25 99 40 09/10/17 08:00 99.8 102 16 167/79 (108) 98 09/10/17 08:00 102 09/10/17 07:03 86 140/69 09/10/17 06:48 89 147/70 09/10/17 06:24 99 121/66 09/10/17 06:00 92 09/10/17 05:47 82 126/66 09/10/17 05:00 100 100 09/10/17 05:00 99 40 09/10/17 04:15 90 128/65 09/10/17 04:01 89 128/65 09/10/17 04:00 40 09/10/17 04:00 99.1 90 20 128/65 (86) 98 09/10/17 04:00 85 09/10/17 02:00 90 09/10/17 00:51 91 134/61 09/10/17 00:39 96 40 09/10/17 00:15 92 142/60 09/10/17 00:00 92 09/10/17 00:00 40 09/10/17 00:00 98.6 92 20 130/59 (82) 100 09/09/17 22:01 90 144/67 09/09/17 22:00 92 09/09/17 21:52 91 143/67 09/09/17 21:21 87 143/67 09/09/17 20:48 86 143/87 09/09/17 20:00 92 09/09/17 20:00 98.4 87 16 151/85 (107) 100 09/09/17 20:00 40 09/09/17 19:48 100 40 09/09/17 18:00 92 09/09/17 17:13 100 40 09/09/17 16:00 80 09/09/17 16:00 40 09/09/17 16:00 99.8 80 24 166/91 (116) 99 09/09/17 14:00 82 09/09/17 12:15 99 40 09/09/17 12:00 81 09/09/17 12:00 100.4 81 17 157/83 (107) 99 09/09/17 12:00 40 09/09/17 10:20 98 40 09/09/17 10:00 83 (Carmen Chamberlain) Physical Exam Ms. Haider remains intubated and sedated on propofol infusion Cranial Nerves: Pupils 3-4 mm round, reactive to light. Conjugate gaze Surgical wound is healing well. No evidence of infection. Motor: mildly withdraws in upper and lower extremities to local pain stimuli. not following for testing Mild bilateral Babinski response. No ankle clonus. Neck: soft, supple (Carmen Chamberlain) Medications Current Medications Current Medications Medications (Trade) Dose Ordered Sig/Christopher Route PRN Reason Start Time Stop Time Status Last Admin Dose Admin Sodium Chloride (NS Flush) 2 ml UNSCH PRN IV FLUSH FLUSH AFTER USING IV ACCESS 08/30/17 16:15 Sodium Chloride (NS Flush) 2 ml BID IV FLUSH 08/30/17 21:00 09/10/17 09:18 Ondansetron HCl (Zofran Inj) 4 mg Q6H PRN IV PUSH NAUSEA OR VOMITING 08/30/17 16:15 Albuterol Sulfate (Albuterol Neb) 2.5 mg Q2HR NEB PRN INH SOB/WHEEZING 08/30/17 16:15 09/08/17 20:05 Miscellaneous Information 1 Q361D XX 08/30/17 16:15 Chlorhexidine Gluconate (Chlorhexidine 2% Cloth) Taper DAILY@04 TOP 08/31/17 04:00 08/27/18 03:59 09/08/17 04:00 Chlorhexidine Gluconate (Chlorhexidine 2% Cloth) 3 pack UNSCH PRN TOP HYGIENIC CARE 08/30/17 16:15 Magnesium Hydroxide (Milk Of Magnesia Liq) 30 ml Q12H PRN PO Mild constipation 08/30/17 16:15 Sennosides (Senokot) 17.2 mg Q12H PRN PO Moderate constipation 08/30/17 16:15 Bisacodyl (Dulcolax Supp) 10 mg DAILY PRN RECTAL SEVERE CONSITIPATION 08/30/17 16:15 Atorvastatin Calcium (Lipitor) 40 mg HS PO 08/30/17 21:00 09/09/17 19:56 Doxepin HCl (SINEquan) 10 mg HS PO 08/30/17 21:00 09/09/17 19:56 Furosemide (Lasix) 40 mg DAILY PO 08/31/17 09:00 09/10/17 09:28 Levetriacetam 500 mg/Sodium Chloride 105 ml @ 420 mls/hr Q12HR IV 08/30/17 21:00 09/10/17 09:18 Dextrose (D50w (Vial) Inj) 50 ml UNSCH PRN IV PUSH HYPOGLYCEMIA-SEE COMMENTS 08/30/17 16:15 Glucagon (Glucagon Inj) 1 mg UNSCH PRN OTHER HYPOGLYCEMIA-SEE COMMENTS 08/30/17 16:15 Labetalol HCl (Trandate Inj) 10 mg Q1HR PRN IV PUSH SBP>150, DBP>90, HR>65 08/30/17 16:15 09/10/17 03:56 Hydralazine HCl (Apresoline Inj) 10 mg Q1HR PRN IV PUSH SBP>150, DBP>90 08/30/17 16:15 09/09/17 12:14 Nitroglycerin (Nitroglycerin 2% Oint) 2 inch Q6H PRN TOPICAL SBP>150, DBP>90 08/30/17 16:15 09/10/17 03:07 Calcium Gluconate (Calcium Gluconate Inj) 1 gm UNSCH PRN IV SEE LABEL COMMENTS 08/31/17 13:30 Acetaminophen/ Hydrocodone Bitart (Belden 10-325 Mg) 1 tab Q4H PRN PO PAIN SCALE 1 TO 5 08/31/17 13:30 Future Hold Acetaminophen/ Hydrocodone Bitart (Belden 10-325 Mg) 2 tab Q4H PRN PO PAIN SCALE 6 TO 10 08/31/17 13:30 Future Hold Morphine Sulfate (Morphine Inj) 2 mg Q2H PRN IV PUSH PAIN SCALE 1 TO 6 08/31/17 13:30 09/01/17 06:15 Morphine Sulfate (Morphine Inj) 4 mg Q2H PRN IV PUSH PAIN SCALE 7 TO 10 08/31/17 13:30 Cholecalciferol (Vitamin D3) 1,000 units DAILY PO 09/01/17 09:00 09/10/17 09:25 Tolterodine Tartrate (Detrol La) 2 mg DAILY PO 09/01/17 09:00 09/09/17 09:08 Patient Own Medication PT OWN MED: LINAGLIP... DAILY PO 09/01/17 09:00 Future Hold Mupirocin (Bactroban Nasal 2% Oint) Taper BID EACH NARE 09/01/17 10:00 08/28/18 09:59 09/09/17 19:57 Chlorhexidine Gluconate (Peridex 0.12% Liq) 15 ml BID@08,20 MT 09/01/17 20:00 09/10/17 08:17 Propofol 100 ml @ 2.79 mls/hr TITRATE PRN IV SEDATION 09/01/17 09:45 09/10/17 04:01 Sodium Chloride (NS Flush) DAILY IV FLUSH 09/01/17 10:30 09/08/17 08:54 Sodium Chloride (NS Flush) UNSCH PRN IV FLUSH SEE PROTOCOL 09/01/17 10:30 Artificial Tears (Tears Naturale Opth Soln) 1 drop Q8HR EACH EYE 09/01/17 14:00 09/10/17 06:08 Famotidine (Pepcid Inj) 20 mg Q12H IV PUSH 09/01/17 11:00 09/09/17 22:19 Isosorbide Dinitrate (Isordil) 10 mg Q8HR PO 09/01/17 14:00 09/10/17 06:07 Potassium Chloride 100 ml @ 50 mls/hr Q2H PRN IV For Potassium 2.8 - 3.2 mEq/L 09/02/17 06:30 Potassium Chloride 100 ml @ 50 mls/hr Q2H PRN IV For Potassium 2.8 - 3.2 mEq/L 09/02/17 06:30 Potassium Bicarb/ Potassium Chloride (K-Lyte Cl Eff) 50 meq UNSCH PRN PO For Potassium 3.3 - 3.5 mEq/L 09/02/17 06:30 Potassium Chloride 100 ml @ 25 mls/hr UNSCH PRN IV For Potassium 3.3 - 3.5 mEq/L 09/02/17 06:30 09/09/17 03:00 Potassium Chloride 100 ml @ 50 mls/hr Q2H PRN IV For Potassium 3.3 - 3.5 mEq/L 09/02/17 06:30 Magnesium Sulfate 4 gm/Sodium Chloride 100 ml @ 50 mls/hr UNSCH PRN IV For Magnesium 0.9 - 1.1 mg/dL 09/02/17 06:30 Magnesium Oxide (Mag-Ox) 800 mg UNSCH PRN PO For Magnesium 1.2 - 1.6 mg/dL 09/02/17 06:30 Magnesium Sulfate 2 gm/Sodium Chloride 100 ml @ 50 mls/hr UNSCH PRN IV For Magnesium 1.2 - 1.6 mg/dL 09/02/17 06:30 Potassium Phosphate (K-Phos) 2,000 mg Q4H PRN PO For Phosphorus < 2.5 mg/dL 09/02/17 06:30 Sodium Phosphate 30 mmol/Sodium Chloride 250 ml @ 42 mls/hr UNSCH PRN IV For Phosphorus < 2.5 mg/dL 09/02/17 06:30 Potassium Phosphate (K-Phos) 2,000 mg UNSCH PRN PO/TUBE SEE LABEL COMMENTS 09/02/17 06:30 Potassium Phosphate 30 mmol/ Sodium Chloride 260 ml @ 42 mls/hr UNSCH PRN IV SEE LABEL COMMENTS 09/02/17 06:30 09/02/17 08:28 Docusate Sodium (Colace Liq) 100 mg Q12HR PO 09/02/17 09:00 09/10/17 09:24 Sennosides (Senna Liq) 8.8 mg BID PO 09/02/17 09:00 09/10/17 09:24 Polyethylene Glycol (Miralax) 17 gm BID PO 09/02/17 09:00 09/09/17 19:56 Acetaminophen (Tylenol 650 Mg/ 20 ml Liq) 650 mg Q6H PRN PO fever 09/02/17 07:15 09/08/17 12:26 Lactulose (Lactulose Liq) 30 ml BID PO 09/03/17 08:00 09/10/17 09:25 Insulin Human Regular (NovoLIN R SUPPLEMENTAL SCALE) 1 Q6HR SQ 09/03/17 12:00 09/10/17 06:08 Valproic Acid (Depakene Liq) 250 mg BID OG-TUBE 09/04/17 11:00 09/10/17 09:25 Fentanyl Citrate 250 ml @ 5 mls/hr TITRATE PRN IV SEDATION 09/05/17 16:45 09/09/17 02:45 Insulin Detemir (Levemir Inj) 15 units Q12HR SQ 09/06/17 09:00 09/10/17 09:17 Amlodipine Besylate (Norvasc) 10 mg DAILY OG-TUBE 09/07/17 02:00 09/10/17 09:24 Miscellaneous (Pill Splitter) 1 ea UNSCH PRN OTHER SEE LABEL COMMENTS 09/07/17 02:00 Nicardipine HCl 50 mg/Sodium Chloride 500 ml @ 50 mls/hr TITRATE PRN IV Blood pressure management 09/07/17 20:45 09/10/17 04:01 Lisinopril (Prinivil) 20 mg BID PO 09/08/17 21:00 09/10/17 09:25 Hydralazine HCl (Apresoline) 100 mg Q8H PO 09/08/17 10:00 09/10/17 09:28 Metoprolol Tartrate (Lopressor) 100 mg Q12H PO 09/09/17 09:00 09/10/17 09:28 Piperacillin Sod/ Tazobactam Sod 50 ml @ 100 mls/hr Q6H IV 09/09/17 10:00 09/10/17 09:18 (Carmen Chamberlain) Medical Decision Making MDM Remarks 57 y/o female TBI following slip and fall on wet grass, she hit her face on concrete sidewalk, CT Brain on arrival with right subdural hematoma, diffuse SAH she underwent right side craniotomy for evacuation of subdural hematoma on 08/31 respiratory failure, reintubated 09/01/17 f/u CT Head 09/02 with improvement of right subdural hematoma, stable right temporal/parietal intraparenchymal hematoma, small right cerebellar contusion, and diffuse SAH, no new ICH f/u CT Head 09/05 stable to improving right temporal/parietal and cerebellar ICH EEG 09/01 neg for seizure uncontrolled hypertension requiring sedatives (Carmen Chamberlain) Plan Plan Remarks cont critical care management - blood pressure control cont sedation and vent weaning as tolerated, serial neuro checks, and follow up exam dc scalp sidney 09/14/17 (Carmen Chamberlain) Attending Statement The exam, history, and the medical decision-making described in the above note were completed with the assistance of the mid-level provider. I reviewed and agree with the findings presented. I attest that I had a [id number] encounter with the patient on the same day, and personally performed and documented my assessment and findings in the medical record. (Yannick Aiken MD) Carmen Chamberlain Sep 10, 2017 09:54 Yannick Aiken MD Sep 14, 2017 21:31
--- NOTE | 2017-09-10 10:12 | HHI.CCPN ---
Subjective Remarks/Hospital Course 57-year-old AA female . Date of admission 08/30/2017. Past medical history includes schizoaffective/bipolar, depression, seizure disorder, hypertension, dyslipidemia, diabetes and allergic rhinitis. She is not on any blood thinners or aspirin. This patient was walking from [place] approximately 6 AM this morning when she suffered a fall and landed on the right side of her face.. She states she slipped in the wet grass hitting her face on the concrete. No loss of consciousness. Not seizure activity noted. Not tongue biting. No incontinence of stool or urine. She took her eggs and milk and transported back home because she had to meet the maintenance service technician. Patient states that she's been having a headache and right-sided facial pain since. 08/30 CT of the brain showed a right frontotemporal subdural hematoma 1.6 cm with a 3 mm right to left shift. Maxillofacial CT revealed a nondisplaced right nasal fracture. CT spine negative. CBC showed normocytic anemia. BMP is pending. Elevated PTT coags at 33. Patient was loaded with 500 mg levetiracetam, given as needed for elevated blood pressure stabilized in the ED. Neurosurgical consultation was requested with Dr. Aiken. 08/31: Afebrile. CT brain revealed increased diameter right-sided subdural hematoma up to 1.9 cm. Shift is 1 mm right to left. Positive headache. No seizure activity. No real focal neurological deficits. 09/01: Patient subjective a weak left upper and lower extremity greater than right. Mumbling words. Stat CT brain revealed 2.6 cm image right intraparenchymal hemorrhage on the right temporal parietal region, 0.9 cm right cerebellar hemorrhage and bilateral subarachnoid hemorrhage convex's. Notified Dr. Aiken. Patient was intubated for airway protection and central line placed for hypertonic saline 09/02: Tmax 99.9. Improved subarachnoid hemorrhage. Stable right intraparenchymal hemorrhages. Potassium and phosphorus been replaced. No bowel movement. Subjective 09/03: Currently afebrile. Remains on propofol and fentanyl drips for sedation. Tolerating tube feeds at goal. Arousable with open eyes but not following commands currently. 09/04: Remains sedated, orally intubated on mechanical ventilation. Tolerating tube feeds. 09/05: Remains sedated, orally intubated on mechanical ventilation. Tolerating tube feeds. 09/06: Breathes over vent despite sedation. Withdraws limbs. 09/07: Remains sedated, orally intubated on mechanical ventilation. Tolerating tube feeds. 09/08: Will work toward extubation when OK with Neurosurgery. 09/09: Remains sedated, orally intubated on mechanical ventilation. Tolerating tube feeds. 09/10: Remains sedated, orally intubated on mechanical ventilation. Tolerating tube feeds. Objective Vital Signs Date Time Temp Pulse Resp B/P (MAP) Pulse Ox O2 Delivery O2 Flow Rate FiO2 09/10/17 09:52 93 155/72 09/10/17 08:29 40 09/10/17 08:28 97 09/10/17 08:00 99.8 16 09/06/17 20:35 Ventilator Intake and Output 09/10/17 09/10/17 09/11/17 08:00 16:00 00:00 Intake Total 1562.7 ml Output Total 1500 ml Balance 62.7 ml Result Diagram: 09/10/17 0445 09/10/17 0445 Imaging Last Impressions Chest X-Ray 09/03/17 06 Signed Impressions: Service Date/Time: Sunday, September 03, 2017 04:42 - CONCLUSION: 1. Bibasilar atelectasis, slightly improved in the right lower lobe but slightly worsened left lower lobe. Fantasma Miller MD Head CT 09/02/17 0600 Signed Impressions: Service Date/Time: Saturday, September 02, 2017 04:41 - CONCLUSION: 1. Mild interval improvement in subarachnoid hemorrhage over the parietal convexities. 2. Stable intraparenchymal hemorrhage in the right parietal lobe and right cerebellar hemisphere. 3. The subdural drainage catheter remains in place with no residual subdural hematoma. 4. No new hemorrhage or mass effect. Tyree Wise MD Abdomen X-Ray 09/01/17 0000 Signed Impressions: Service Date/Time: Friday, September 01, 2017 18:29 - CONCLUSION: Nasogastric tube coiled in the stomach with the tip projecting towards the GE junction. Migue Cuenca Jr., MD Maxillofacial CT 08/30/17 0000 Signed Impressions: Service Date/Time: August 15:13 - CONCLUSION: 1. There is a minimally depressed right nasal bone fracture with adjacent soft tissue swelling. No other fracture is visualized. 2. Please refer to head CT report for description of the right subdural hematoma. Nacho Buckley MD Lumbar Spine CT 08/30/17 0000 Signed Impressions: Service Date/Time: August 17:59 - CONCLUSION: Negative examination. Alec Latham MD Cervical Spine CT 08/30/17 0000 Signed Impressions: Service Date/Time: August 15:12 - CONCLUSION: 1. No acute fracture or subluxation. Skinny Muñiz MD Objective Remarks GENERAL: 57-year-old AA female, resting in bed orotracheally intubated SKIN: Warm and dry. Abrasions to the right cheek and chin with evolving ecchymoses HEAD: Status post right craniotomy with subdural, scalp drain in place EYES: Pupils equal and round about 3 mm bilaterally and reactive. Right eyelid swollen, protuberant globe. No scleral icterus. No injection or drainage. ENT: No nasal bleeding or discharge. Mucous membranes pink and moist. NECK: Trachea midline. Orally intubated. CARDIOVASCULAR: Tachycardia, RR. S1, S2. No S4. Without murmur. No JVD. RESPIRATORY: Clear to auscultation. Breath sounds equal bilaterally. Nio adventitious sounds. GASTROINTESTINAL: Abdomen soft, non-tender, nondistended. Bowel sounds are sluggish but appreciated MUSCULOSKELETAL: Extremities without significant peripheral edema. No obvious deformities. Well perfused. NEUROLOGICAL: Currently sedated on propofol and fentanyl drips. Eyes open. Withdraws to pain bilateral upper and lower extremities. Not following commands Date of Insertion: Sep 01, 2017 Line: Central Venous Catheter Side: Left Location: Internal, Jugular A/P Assessment and Plan Neuro/Psych: s/p right craniotomy with evacuation of subdural hematoma 2.6 cm right parietal/temporal intracranial hemorrhage, 0.9 cm right subdural hemorrhage and bilateral subarachnoid hemorrhage Right subdural hematoma - 1.6 cm fronto temporal with a 3 mm right to left shift Right closed nondisplaced nasal fracture Schizoaffective disorder Bipolar disorder Depression Seizure disorder NOS Propofolfentanyl drips for sedation/analgesia while intubated Goal of RASS -[address] brain 08/30 revealed a right frontal temporal subdural hematoma 1.6 cm thickness with a 3 mm right to left shift. Nondisplaced right nasal bone fracture. CT brain 08/31 revealed 2.6 cm right parietal intracranial hemorrhage, 0.9 cm right subdural hemorrhage and bilateral subarachnoid hemorrhage CT brain 09/01 revealed stable intraparenchymal hemorrhage improving subarachnoid hemorrhage at the convex CT Head 09/05 with stable areas of ICH/ SAH. EEG 08/31 revealed generalized slowing/encephalopathy. Disruption right side secondary to intraparenchymal hemorrhage. Levetiracetam 500 mg IV twice a day for seizure prophylaxis 7 days Resumed home dose of valproic acid 250mg BID via OGT. Goal keep systolic blood pressure less than 140. Neurochecks Head of bed at 30 Stopped hypertonic saline 09/05 per neurosurgery. Evaluated by Dr. Aiken/neurosurgery Continue doxepin 10 mg by mouth daily Holding loratadine 10 mg by mouth daily CV: Hypertension Dyslipidemia Resume metoprolol 100 mg via OGT [id number] for hypertension(was DCed by pharmacy) . Increase Prinivil to 20mg BID. Continue isosorbide mononitrate 30 mg by mouth daily but switch to isosorbide dinitrate 10 mg 3 times a day As needed labetalol, hydralazine, Nitropaste and nicardipine drip to keep systolic blood pressure less than 140. Added Norvasc 10 mg via OG tube daily on 09/07. Continue atorvastatin 40 mg by mouth daily for dyslipidemia Resp: PRVC 16/500/11/16/39 Ventilator bundle Albuterol/after aerosols every 6 hours with albuterol aerosols every 2 hours prn dyspnea Spontaneous breathing trials daily Chest x-ray revealed bilateral lower lobe atelectasis left greater than right. GI: Continue tube feeding with vital 1.5 goal 50 cc an hour Famotidine for GI prophylaxis Docusate sodium/senna and polyethylene glycol twice a day for bowel regimen. Add lactulose and mineral oil 1 today and a one-time dose of 12 mg subcutaneous methylnaltrexone : Incontinence Porter catheter if indicated for accurate I's and O's in a critically ill patient Holding Tolterodine 2 mg by mouth daily. Resume when clinically indicated Endo: Diabetes History of hypothyroidism/thyroid nodules Holding metformin 1000 mg daily and Linagliptin 5 mg daily for diabetes. Sliding-scale insulin with Accu-Cheks to maintain euglycemia increase detemir 15 units twice a day Renal: History of renal cell carcinoma status post right nephrectomy KVO IVF 09/05 Monitor urine output Accurate I's and O's Follow-up ER BMP not completed Heme: Normocytic anemia Elevated PTT Thrombocytopenia Monitor CBC daily. Follow trends Does not meet transfusion thresholds at this time ID: Patient noted to have fevers and left shift with bands noted on peripheral smear. We will obtain allen cultures and initiate empiric antibiotic coverage with IV Zosyn 09/09 FEN: Hypophosphatemia Hypokalemia Replace electrolytes as clinically indicated per ICU electrolyte protocol. Holding cholecalciferol 1000 U daily. Resume when clinically indicated MSK: Osteoarthritis Physical therapy evaluate and treat Access -Left IJ CVL Prophylaxis - GI famotidine - DVT- SCD/holding pharmacological prophylaxis in light of subdural hematoma Patient remains critical with SDH, cerebral edema status post craniotomy Overall impression: Remains critically ill after evacuation of SDH. Unable to wean ventilator. Fails SBTs daily. Need more aggressibe BP control. Critical care 35 mins Skyler Taylor MD Sep 10, 2017 10:11
[2017-09-10] MEDS: FAMOTIDINE 20 MG/2 ML VIAL IV PUSH SCH ×2 (11:44→22:33)
--- NOTE | 2017-09-10 11:44 | PD.HHIRCNE ---
Patient History Record/History Review Reason for Referral: The patient is a 57 year old unknown handed female status post traumatic brain injury secondary to a fall sustained on 08/30/2017. The patient slipped and fell on grass, striking her head. Head CT notable for right frontotemporal SDH with right to left shift. She is now sedated and intubated. She is referred for baseline neurobehavioral status examination to assess cognitive, behavioral and emotional aspects of the injury and to provide treatment recommendations. Neuropsych Precautions: To be determined. Past Surgical/Medical History Past Surgery: Yes (RENAL SURGERY FOR RENAL CANCER) Major surgery in last 100 days: Unknown Hx Anesthesia Reactions: No Hx Orthopedic Surgery: No Hx Cardiac Surgery: No Hx Chest Surgery: No Hx Abdominal Surgery: Yes (CHOLECYSTECTOMY) Hx Genitourinary Surgery: Yes (RT KIDNEY REMOVED) Hx Gynecologic Surgery: Yes (TUBAL LIGATION) Hx Endocrine Surgery: No Hx Eye Surgery: No Hx Ear Surgery: No Hx Oral Surgery: No Hx Other Surgery: CANCER R KIDNEY , PARTIAL REMOVAL PER PT ( REVIEW OF CHARTED HISTORY) Hx of Neuro Prob: No Hx Seizures: Yes (patient admits to one seizure) Cephalgia (Headaches): No Hx Migraines: No Hx Head Injury: No Hx Falls: Yes Hx Cerebrovascular Accident: No Hx Dizziness: No Hx Numbness: No Hx of Musculoskeletal Pro: No Hx Arthritis: Yes Hx Osteoporosis: No Hx Neck Problems: No Hx Back Problem: No Hx of Cardiovascular Prob: Yes (HTN) Hypertension (High Blood Press: Yes Hx Clotting Problems: No Hx Chest Pain: No Hx Lightheadedness: No Hx Congestive Heart Failure: No Syncope (Fainting): No Hx of Respiratory Problem: No Hx Asthma: No Hx Wheezing: No Hx Chronic Obstructive Pulmona: No Hx Dyspnea: No Hx Snoring: No Hx Emphysema: No Hx Sleep Apnea: No Hx of GI Problems: No Hx Heartburn: No Hx Gastroesophageal Reflux: No Hx Hiatal Hernia: No Hx Ulcer: No Hx Liver Disease: No Hx of Problems: No Hx Renal Disease: Yes Hx Renal Failure: No Hx Kidney Transplant: No Hx Kidney Stones: No Hx Nephrectomy: Yes Hx Infection: No Hx Pelvic Problems: No Hx Genital Problems: No ?: Not Hx of Immuno Disor: No Hx Autoimmune Disease: No Hx of Endocrine Problems: Yes Hx Thyroid Disease: Yes (HYPOTHYROID) Hx Diabetes: Yes Does Patient Currently Take Gl: Yes Hx of Eye Probl: Yes Hx of Hearing or Ear Problems: No Hx Dental Problems: No Hx Psychiatric Problems: Yes (Schizoaffective Disorder) Hx Anxiety: No Hx Depression: Yes Hx Blood Dyscrasias: No Hx Sickle Cell Disease: No Hx Thrombocytopenia: No Hx Hemophilia: No Hx of MDRO: No Hx of MRSA: No Hx of VRE: No Hx of CDIFF: No Hx of Tuberculosis: No Hx Chicken Pox: No Hx Measles: No Hx Pacemaker: No Hx Internal Defibrillator: No Hx Joint Replacement: No Insulin Pump: No Hx Arteriovenous Shunt: No Hx Dental Implants: No Hx Eye Prosthesis: No Genitourinary Device: No Genitourinary Ostomy: No Gastrointestinal Ostomy: No Blood Transfusion History Will receive Blood /Blood prod: Yes Hx Blood Transfusions: Yes Hx Blood Transfusion Reaction: No Medication Active Medications Tolterodine Tartrate (Detrol) 2 mg DAILY PO; Start 09/10/17 at 12:00 Mental Status Assessment Orientation: unable to asses Self, unable to asses Place, unable to asses Time , unable to asses Situation Observation The patient is presented intubated and sedated. Adjustment/Coping Assessment Adjustment/Coping: Not Assessed: Depression, Anxiety, Pain, Apathy, Awareness, Insight Observation The patient is presently intubated and sedated. LTG Status: Deferred STG Status: Deferred Team Members: Neuropsychologist Behavior Assessment Agitation: None Treatment Engagement: No effort Observation Behaviorally, the patient demonstrated no signs of agitation, impulsivity or disinhibition. There was no remarkable evidence of a formal thought disorder or psychosis. LTG - Status: Deferred STG Status: Deferred Team Members: Neuropsychologist Diagnosis/Discharge Plan Impression This 57 year old woman is s/p TBI 2T fall on 08/31/2017, who is now intubated and sedated. She has a history of schizoaffective disorder prior to her TBI. Diagnosis: (1) Major neurocognitive disorder as late effect of traumatic brain injury without behavioral disturbance (2) Schizoaffective disorder Status: Acute [facility] Level: I:No response-total assistance Maximizing acute care outcome It is recommended that the patient be monitored for emergent behavioral impulsivity as the medical condition evolves. This patients neuropathological challenges may limit their rehabilitation potential going forward, and these challenges will require specialized therapeutic skills to maximize outcome. Additionally, the patients family is experiencing ongoing issues of adjustment given the traumatic nature of the injury, and they may benefit from ongoing psychological assistance. Discharge Planning Anticipated Problems Ongoing areas of concern will include behavioral impulsivity, lack of insight and judgment, which is expected to improve with time and treatment. Presently , the patient is intubated and sedated. Treatment Plan This clinician will continue to follow with you throughout the course of this patients acute care treatment, and I will be available to meet with the patient s family/support system to facilitate their understanding and the ongoing care of their family member. The goals of neuropsychological intervention shall be both educational and supportive to the family/support system as is deemed clinically appropriate. Discharge Needs To be determined. Thank you Thank you for the opportunity to assist in this patients care. Bhavik Crabtree, Ph.D., ABPP Board Certified in Clinical Neuropsychology [place] [employer] [place] Licensed Psychologist #[id number] Problem Qualifiers (1) Schizoaffective disorder: Qualified Codes: F25.0 - Schizoaffective disorder, bipolar type Bhavik Crabtree PhD Sep 10, 2017 11:44
--- NOTE | 2017-09-10 12:38 | EKG ---
Date Performed: 09/10/2017 Time Performed: 09:08:18 PTAGE: 57 years EKG: Sinus rhythm Appears to be limb lead reversal Clinical correlation is recommended A repeat tracing suggested if c linically indicated Abnormal ECG PREVIOUS TRACING : 09/02/2017 15.31 DOCTOR: Darius Whittaker Interpretating Date/Time 09/10/2017 12:36:16
[2017-09-10] MEDS: TOLTERODINE TARTRATE 2 MG TAB PO SCH (13:14)
[2017-09-10] MEDS: ATORVASTATIN 40 MG TAB PO SCH (20:33)
[2017-09-10] MEDS: DOXEPIN HCL 10 MG CAP PO SCH (21:13)
[2017-09-11] VITALS (17 sets, daily range): BP systolic 136–159; BP diastolic 69–76; PULSE 80–104; RESP 16–21; TEMP 98.6–99.7; O2SAT 95–100
[2017-09-11] MEDS: RESP: ALBUTEROL 2.5 MG/3 ML NEB (PRN) INH (00:48)
[2017-09-11] MEDS: hydrALAZINE HCL 100 MG TAB PO SCH ×3 (01:33→17:18)
[2017-09-11] MEDS: niCARdipine INJ 50 MG in SODIUM CHLORID 0.9% 500 ML INJ 480 ML IV PRN ×7 (01:55→23:03)
[2017-09-11] MEDS: hydrALAZINE HCL 20 MG/ML VIAL IV PUSH PRN (02:33)
[2017-09-11] MEDS: LABETALOL HCL 100 MG/20 ML VIAL IV PUSH PRN (03:03)
[2017-09-11] MEDS: CHLORHEXIDINE GLUCONATE 2 % 1 PACK (2 CLOTHS) TOP SCH (04:00)
[2017-09-11] MEDS: PIPERACIL-TAZO 3.375 GM PREMIX 50 ML IV SCH (04:06)
[2017-09-11 04:27] LABS: AUTOMATED NEUTROPHIL # 13.9 TH/MM3 (1.8-7.7); BASOPHIL # 0.1 TH/MM3 (0-0.2); BASOPHIL % 0.4 % (0.0-2.0); EOSINOPHIL % 0.2 % (0.0-4.0); HEMO FLAGS DIFF FINAL; LYMPH % 8.7 % (9.0-44.0); LYMPHOCYTE # 1.4 TH/MM3 (1.0-4.8); MEAN CORPUSCULAR HEMOGLOBIN 26.3 PG (27.0-34.0); MEAN CORPUSCULAR HGB CONC 31.3 % (32.0-36.0); MONO % 6.2 % (0.0-8.0); NEUT % 84.5 % (16.0-70.0); PLATELET COUNT 369 TH/MM3 (150-450); RED BLOOD COUNT 3.09 MIL/MM3 (4.00-5.30); RED CELL DISTRIBUTION WIDTH 14.6 % (11.6-17.2); WHITE BLOOD COUNT 16.5 TH/MM3 (4.0-11.0)
[2017-09-11 04:56] LABS: BICARBONATE 26.2 MEQ/L (21.0-32.0); POTASSIUM 3.1 MEQ/L (3.5-5.1)
[2017-09-11] MEDS: ISOSORBIDE DINITRATE 10 MG TAB PO SCH ×3 (05:05→22:05)
[2017-09-11] MEDS: ARTIFICIAL TEARS OPTH SOLN 15 ML BTL EACH EYE SCH ×3 (05:06→22:06)
[2017-09-11] MEDS: POTASSIUM CHLOR 40 MEQ PREMIX 100 ML IV PRN ×2 (05:07→07:16)
[2017-09-11] MEDS: INSULIN NovoLIN REGULAR SUPPLEMENTAL SCALE SQ SCH ×4 (05:26→23:03)
--- NOTE | 2017-09-11 08:04 | HHI.PR ---
Neuropsych Emotional Emotional: UnabletoAssess: Emotional, Anxious/Fearful, Depressed/Sad, Hostile/ Resentful, Irritable/Angry/Frustrate, Labile, Constricted/Blunted Behavior Behavior: Unable to Asses: Behavior, Coping/Acceptance, Cooperative w/ Treatment, Motivation, Frustration Tolerance/[place], Impulsive/Agitated, Suicidal/ Homicidal Risk Cognitive Cognitive: Unable to Asses: Cognitive, Attention/Concentration, Confused/ Orientation, Insight/Awareness, Judgement/Problem-Solving, Memory Psychosocial Psychosocial: Severe: Psychosocial, Family/Other Adjustment, Realistic Expectation, Unable to Asses: Self-Esteem/Confidence Progress Notes/Response to Tx Contents of Sessions: Adjustment, Level of Consciousness Time with Patient: 15 minutes Premorbid psychological status Premorbid Cognitive, Emotional and Behavioral Status: Unable to Assess. The patient's history is unclear other than she had prior psychiatric diagnoses in the past. Behavioral Reactions of Patient and Family/Support System: Unable to Assess. The patients family is likely experiencing ongoing issues of adjustment given the nature of the injury, and this aspect of recovery will require ongoing monitoring. Emotional/Behavioral Status of Patient and Family/Support System: Unable to Assess. Pertinent issues, if appropriate to this patients clinical care, are described in detail above. Maximizing acute care outcome It is recommended that the patient be monitored for emergent behavioral impulsivity as the medical condition evolves. This patients neuropathological challenges may limit their rehabilitation potential going forward, and these challenges will require specialized therapeutic skills to maximize outcome. Additionally, the patients family is experiencing ongoing issues of adjustment given the traumatic nature of the injury, and they may benefit from ongoing psychological assistance. Anticipated Problems Ongoing areas of concern will include behavioral impulsivity, lack of insight and judgment, which is expected to improve with time and treatment. Presently , the patient remains intubated and sedated. Treatment Plan This clinician will continue to follow with you throughout the course of this patients acute care treatment, and I will be available to meet with the patient s family/support system to facilitate their understanding and the ongoing care of their family member. The goals of neuropsychological intervention shall be both educational and supportive to the family/support system as is deemed clinically appropriate. [facility] Level: I:No response-total assistance Impression This 57 year old woman is s/p TBI 2T fall on 08/31/2017, who is now intubated and sedated. She has a history of schizoaffective disorder prior to her TBI. Diagnosis: (1) Major neurocognitive disorder as late effect of traumatic brain injury without behavioral disturbance (2) Schizoaffective disorder Status: Acute Progress Note Narrative Ongoing follow-up of patient seen in ICU. This is day 7 post injury. The patient remains intubated and sedated, with no significant neurobehavioral improvement. Presently, she is at [place], primarily given her sedation level. I will continue to follow. Problem Qualifiers (1) Schizoaffective disorder: Qualified Codes: F25.0 - Schizoaffective disorder, bipolar type Bhavik Crabtree PhD Sep 11, 2017 8:04 am
[2017-09-11] MEDS: CHLORHEXIDINE 0.12% (ORAL KIT) 15 ML CUP MT SCH ×2 (08:09→19:55)
[2017-09-11] MEDS: VALPROIC ACID SYRUP 250 MG/5 ML UDC OG-TUBE SCH ×2 (08:34→20:01)
[2017-09-11] MEDS: METOPROLOL TARTRATE 25 MG TAB PO SCH ×2 (08:34→20:02)
[2017-09-11] MEDS: levETIRAcetam INJ 500 MG in SODIUM CHLORIDE 0.9% INJ 100 ML IV SCH ×2 (08:34→20:01)
[2017-09-11] MEDS: TOLTERODINE TARTRATE 2 MG TAB PO SCH (08:34)
[2017-09-11] MEDS: LISINOPRIL 20 MG TAB PO SCH ×2 (08:34→20:02)
[2017-09-11] MEDS: CHOLECALCIFEROL (VIT D3) 1000 UNIT TAB PO SCH (08:34)
[2017-09-11] MEDS: SENNOSIDES SYRUP 8.8 MG/5 ML CUP PO SCH ×2 (08:35→20:02)
[2017-09-11] MEDS: LACTULOSE SYRUP 20 GM/30 ML CUP PO SCH ×2 (08:35→20:01)
[2017-09-11] MEDS: FUROSEMIDE 40 MG TAB PO SCH (08:35)
[2017-09-11] MEDS: POLYETHYLENE GLYCOL 17 GM PKG PO SCH ×2 (08:35→20:02)
[2017-09-11] MEDS: DOCUSATE SODIUM 100 MG/10 ML UDC PO SCH ×2 (08:35→20:01)
[2017-09-11] MEDS: SODIUM CHLORIDE 0.9% FLUSH 10 ML FLUSH IV FLUSH SCH ×3 (08:35→20:01)
[2017-09-11] MEDS: INSULIN DETEMIR 100 UNITS/ML VIAL SQ SCH ×2 (08:35→20:42)
--- NOTE | 2017-09-11 09:32 | HHI.CCPN ---
Subjective Remarks/Hospital Course 57-year-old AA female . Date of admission 08/30/2017. Past medical history includes schizoaffective/bipolar, depression, seizure disorder, hypertension, dyslipidemia, diabetes and allergic rhinitis. She is not on any blood thinners or aspirin. This patient was walking from [employer] in approximately 6 AM this morning when she suffered a fall and landed on the right side of her face.. She states she slipped in the wet grass hitting her face on the concrete. No loss of consciousness. Not seizure activity noted. Not tongue biting. No incontinence of stool or urine. 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 Patient states that she's been having a headache and right-sided facial pain since. 08/30 CT of the brain showed a right frontotemporal subdural hematoma 1.6 cm with a 3 mm right to left shift. Maxillofacial CT revealed a nondisplaced right nasal fracture. CT spine negative. CBC showed normocytic anemia. BMP is pending. Elevated PTT coags at 33. Patient was loaded with 500 mg levetiracetam, given as needed for elevated blood pressure stabilized in the ED. Neurosurgical consultation was requested with Dr. Aiken. 08/31: Afebrile. CT brain revealed increased diameter right-sided subdural hematoma up to 1.9 cm. Shift is 1 mm right to left. Positive headache. No seizure activity. No real focal neurological deficits. 09/01: Patient subjective a weak left upper and lower extremity greater than right. Mumbling words. Stat CT brain revealed 2.6 cm image right intraparenchymal hemorrhage on the right temporal parietal region, 0.9 cm right cerebellar hemorrhage and bilateral subarachnoid hemorrhage convex's. Notified Dr. Aiken. Patient was intubated for airway protection and central line placed for hypertonic saline 09/02: Tmax 99.9. Improved subarachnoid hemorrhage. Stable right intraparenchymal hemorrhages. Potassium and phosphorus been replaced. No bowel movement. Subjective 09/03: Currently afebrile. Remains on propofol and fentanyl drips for sedation. Tolerating tube feeds at goal. Arousable with open eyes but not following commands currently. 09/04: Remains sedated, orally intubated on mechanical ventilation. Tolerating tube feeds. 09/05: Remains sedated, orally intubated on mechanical ventilation. Tolerating tube feeds. 09/06: Breathes over vent despite sedation. Withdraws limbs. 09/07: Remains sedated, orally intubated on mechanical ventilation. Tolerating tube feeds. 09/08: Will work toward extubation when OK with Neurosurgery. 09/09: Remains sedated, orally intubated on mechanical ventilation. Tolerating tube feeds. 09/10: Remains sedated, orally intubated on mechanical ventilation. Tolerating tube feeds. 09/11: Remains drowsy, orally intubated on mechanical ventilation. Tolerating tube feeds. Daily C Pap trials ongoing. Remains on nicardipine drip. Objective Vital Signs Date Time Temp Pulse Resp B/P (MAP) Pulse Ox O2 Delivery O2 Flow Rate FiO2 09/11/17 09:06 92 151/65 09/11/17 08:00 98.6 16 99 09/11/17 08:00 40 Intake and Output 09/11/17 09/11/17 09/12/17 08:00 16:00 00:00 Intake Total 1831 ml Output Total 1250 ml Balance 581 ml Result Diagram: 09/11/17 0400 09/11/17 0400 Other Results Microbiology Date/Time Source Procedure Growth Status 09/09/17 10:50 Sputum Endotracheal Gram Stain - Final Complete 09/09/17 10:50 Sputum Endotracheal Sputum Culture - Final HEAVY GROWTH NORMAL RESPIRATORY ALFREDO Complete 09/09/17 09:42 Urine Catheterized Urine Urine Culture - Final Escherichia Coli Complete Imaging Last Impressions Chest X-Ray 09/03/17 0600 Signed Impressions: Service Date/Time: Sunday, September 03, 2017 04:42 - CONCLUSION: 1. Bibasilar atelectasis, slightly improved in the right lower lobe but slightly worsened left lower lobe. Fantasma Miller MD Head CT 09/02/17 0600 Signed Impressions: Service Date/Time: Saturday, September 02, 2017 04:41 - CONCLUSION: 1. Mild interval improvement in subarachnoid hemorrhage over the parietal convexities. 2. Stable intraparenchymal hemorrhage in the right parietal lobe and right cerebellar hemisphere. 3. The subdural drainage catheter remains in place with no residual subdural hematoma. 4. No new hemorrhage or mass effect. Tyree Wise MD Abdomen X-Ray 09/01/17 0000 Signed Impressions: Service Date/Time: Friday, September 01, 2017 18:29 - CONCLUSION: Nasogastric tube coiled in the stomach with the tip projecting towards the GE junction. Migue Cuenca Jr., MD Maxillofacial CT 08/30/17 0000 Signed Impressions: Service Date/Time: August 15:13 - CONCLUSION: 1. There is a minimally depressed right nasal bone fracture with adjacent soft tissue swelling. No other fracture is visualized. 2. Please refer to head CT report for description of the right subdural hematoma. Nacho Buckley MD Lumbar Spine CT 08/30/17 0000 Signed Impressions: Service Date/Time: August 17:59 - CONCLUSION: Negative examination. Alec Latham MD Cervical Spine CT 08/30/17 0000 Signed Impressions: Service Date/Time: August 15:12 - CONCLUSION: 1. No acute fracture or subluxation. Skinny Muñiz MD Objective Remarks GENERAL: 57-year-old AA female, resting in bed orotracheally intubated SKIN: Warm and dry. Abrasions to the right cheek and chin with evolving ecchymoses HEAD: Status post right craniotomy with subdural, scalp drain in place EYES: Pupils equal and round about 3 mm bilaterally and reactive. Right eyelid swollen, protuberant globe. No scleral icterus. No injection or drainage. ENT: No nasal bleeding or discharge. Mucous membranes pink and moist. NECK: Trachea midline. Orally intubated. CARDIOVASCULAR: Tachycardia, RR. S1, S2. No S4. Without murmur. No JVD. RESPIRATORY: Clear to auscultation. Breath sounds equal bilaterally. Nio adventitious sounds. GASTROINTESTINAL: Abdomen soft, non-tender, nondistended. Bowel sounds are sluggish but appreciated MUSCULOSKELETAL: Extremities without significant peripheral edema. No obvious deformities. Well perfused. NEUROLOGICAL: Drowsy/encephalopathic, orally intubated, arouses on command, Withdraws to pain bilateral upper and lower extremities. Not following commands Date of Insertion: Sep 01, 2017 Line: Central Venous Catheter Side: Left Location: Internal, Jugular A/P Assessment and Plan Neuro/Psych: s/p right craniotomy with evacuation of subdural hematoma 2.6 cm right parietal/temporal intracranial hemorrhage, 0.9 cm right subdural hemorrhage and bilateral subarachnoid hemorrhage Right subdural hematoma - 1.6 cm fronto temporal with a 3 mm right to left shift Right closed nondisplaced nasal fracture Schizoaffective disorder Bipolar disorder Depression Seizure disorder NOS Off propofol and fentanyl drips for more than 24 hours. Remains drowsy, arousable CT brain 08/30 revealed a right frontal temporal subdural hematoma 1.6 cm thickness with a 3 mm right to left shift. Nondisplaced right nasal bone fracture. CT brain 08/31 revealed 2.6 cm right parietal intracranial hemorrhage, 0.9 cm right subdural hemorrhage and bilateral subarachnoid hemorrhage CT brain 09/01 revealed stable intraparenchymal hemorrhage improving subarachnoid hemorrhage at the convex CT Head 09/05 with stable areas of ICH/ SAH. EEG 08/31 revealed generalized slowing/encephalopathy. Disruption right side secondary to intraparenchymal hemorrhage. Levetiracetam 500 mg IV twice a day for seizure prophylaxis 7 days Resumed home dose of valproic acid 250mg BID via OGT. Goal keep systolic blood pressure less than 140. Neurochecks Head of bed at 30 Stopped hypertonic saline 09/05 per neurosurgery. Evaluated by Dr. Aiken/neurosurgery Continue doxepin 10 mg by mouth daily Holding loratadine 10 mg by mouth daily CV: Hypertension Dyslipidemia Continue metoprolol 100 mg via OGT [id number] for hypertension. Prinivil to 20mg BID. Continue isosorbide mononitrate 30 mg by mouth daily but switch to isosorbide dinitrate 10 mg 3 times a day As needed labetalol, hydralazine, Nitropaste and nicardipine drip to keep systolic blood pressure less than 140. Added Norvasc 10 mg via OG tube daily on 09/07. Added Catapres patch 0.3 mg per day on 09/11 titrate off nicardipine drip as tolerated Continue atorvastatin 40 mg by mouth daily for dyslipidemia Resp: PRVC 16/500/11/16/39 Ventilator bundle Albuterol/after aerosols every 6 hours with albuterol aerosols every 2 hours prn dyspnea Spontaneous breathing trials daily Chest x-ray revealed bilateral lower lobe atelectasis left greater than right. GI: Continue tube feeding with vital 1.5 goal 50 cc an hour Famotidine for GI prophylaxis Docusate sodium/senna and polyethylene glycol twice a day for bowel regimen. Add lactulose and mineral oil 1 today and a one-time dose of 12 mg subcutaneous methylnaltrexone : Incontinence Porter catheter if indicated for accurate I's and O's in a critically ill patient Holding Tolterodine 2 mg by mouth daily. Resume when clinically indicated Endo: Diabetes History of hypothyroidism/thyroid nodules Holding metformin 1000 mg daily and Linagliptin 5 mg daily for diabetes. Sliding-scale insulin with Accu-Cheks to maintain euglycemia detemir 15 units twice a day Renal: History of renal cell carcinoma status post right nephrectomy KVO IVF 09/05 Monitor urine output Accurate I's and O's Follow-up ER BMP not completed Heme: Normocytic anemia Elevated PTT Thrombocytopenia Monitor CBC daily. Follow trends Does not meet transfusion thresholds at this time ID: Patient noted to have fevers and left shift with bands noted on peripheral smear. Obtained allen cultures and initiated empiric antibiotic coverage with IV Zosyn 09/09, discontinued on 09/11 as urine culture growing Escherichia coli sensitive to Rocephin. We will de-escalate to Rocephin 1 g IV daily starting . FEN: Hypophosphatemia Hypokalemia Replace electrolytes as clinically indicated per ICU electrolyte protocol. Holding cholecalciferol 1000 U daily. Resume when clinically indicated MSK: Osteoarthritis Physical therapy evaluate and treat Access -Left IJ CVL Prophylaxis - GI famotidine - DVT- SCD/holding pharmacological prophylaxis in light of subdural hematoma Patient remains critical with SDH, cerebral edema status post craniotomy Overall impression: Remains critically ill after evacuation of SDH. Unable to wean ventilator. Fails SBTs daily. Need more aggressibe BP control. Critical care 35 mins Skyler Taylor MD Sep 11, 2017 09:32
--- NOTE | 2017-09-11 09:38 | HHI.NSPN ---
(Carmen Chamberlain) Note Status Status: Progress Note (Carmen Chamberlain) Interval History Interval History This is a 57-year-old female who apparently is status post slip and fall around 6 AM this morning. She states she was on her way to [facility] she had some eggs when she slipped in the wet grass hitting her face on the concrete. No loss of consciousness. Not seizure activity noted. Not tongue biting. No incontinence of stool or urine. 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 Patient states that she' s been having a headache and right-sided facial pain since. She denies any chest pain, shortness of breath, change in vision, numbness or tingling anywhere , neck pain, back pain, loss or change in bowel or bladder, or being on any blood thinners. She is moving where both upper and lower extremities without any focal deficit. CT of the brain showed a right sided accurate subdural hematoma causing mass effect and midline shift. The subdural was hematoma 1.6 cm thick with a 3 mm right to left shift. Maxillofacial CT revealed a nondisplaced right nasal fracture. CT spine negative. Neurosurgical consultation was requested 09/01: Letahrgic today. Open eyes follows commands withn all [address] brain showed new frontal and post fossa bleed 09/02: remains intubated, off sedation she slightly opens eyes and moves all four extremities. EEG yesterday neg for seizures. 09/03: intubated, again off sedation reports to open her eyes and moves x 4, but not following commands 09/04: nursing reports minimal eye opening, moves x 4. intubated and sedated. 09/05: f/u CT Head completed, stable right temporal and cerebellar hemorrhage, no significant midline shift or mass effect. remains intubated and sedated. 09/06: remains intubated and well sedated for blood pressure control. 09/07: sedation lowered, eyes open, moving legs intermittently?to command. did not follow in the upper extremities. 09/10: on nicardipine drip. remains intubated on propofol drip. mildly opens eyes, withdraws to pain x 4 ext 09/11 intubated, CPAP trial. Remains on nicardipine drip. minimally open eyes , moves ext intermittently. (Carmen Chamberlain) Labs, Micro, & Vital Signs Results Date Time Temp Pulse Resp B/P (MAP) Pulse Ox O2 Delivery O2 Flow Rate FiO2 09/11/17 09:06 92 151/65 09/11/17 08:00 97 09/11/17 08:00 98.6 97 16 159/74 (102) 99 09/11/17 08:00 40 09/11/17 08:00 99 40 09/11/17 06:00 104 09/11/17 05:25 100 144/69 09/11/17 05:16 97 40 09/11/17 04:00 103 09/11/17 04:00 40 09/11/17 04:00 99.4 103 21 153/76 (101) 96 09/11/17 02:00 93 09/11/17 01:55 98 157/76 09/11/17 00:48 96 40 09/11/17 00:00 90 09/11/17 00:00 99.2 90 19 149/69 (95) 95 09/11/17 00:00 40 09/10/17 22:33 83 134/67 09/10/17 22:00 80 09/10/17 20:00 40 09/10/17 20:00 99.0 104 20 157/75 (102) 99 09/10/17 20:00 104 09/10/17 19:30 100 40 09/10/17 19:03 90 150/71 09/10/17 18:00 104 09/10/17 16:00 95 09/10/17 16:00 98.7 95 15 147/70 (95) 99 09/10/17 16:00 40 09/10/17 15:44 94 145/70 09/10/17 15:43 98 40 09/10/17 14:34 40 09/10/17 14:00 86 09/10/17 13:23 95 40 09/10/17 12:50 88 143/72 09/10/17 12:00 86 09/10/17 12:00 99.5 86 19 138/71 (93) 97 09/10/17 12:00 40 09/10/17 11:22 97 40 09/10/17 10:00 98 09/10/17 09:52 93 155/72 09/12/17 07:00 Intake Total 100 ml Balance 100 ml Constitutional Vital Signs Date Time Temp Pulse Resp B/P (MAP) Pulse Ox O2 Delivery O2 Flow Rate FiO2 09/11/17 09:06 92 151/65 09/11/17 08:00 97 09/11/17 08:00 98.6 97 16 159/74 (102) 99 09/11/17 08:00 40 09/11/17 08:00 99 40 09/11/17 06:00 104 09/11/17 05:25 100 144/69 09/11/17 05:16 97 40 09/11/17 04:00 103 09/11/17 04:00 40 09/11/17 04:00 99.4 103 21 153/76 (101) 96 09/11/17 02:00 93 09/11/17 01:55 98 157/76 09/11/17 00:48 96 40 09/11/17 00:00 90 09/11/17 00:00 99.2 90 19 149/69 (95) 95 09/11/17 00:00 40 09/10/17 22:33 83 134/67 09/10/17 22:00 80 09/10/17 20:00 40 09/10/17 20:00 99.0 104 20 157/75 (102) 99 09/10/17 20:00 104 09/10/17 19:30 100 40 09/10/17 19:03 90 150/71 09/10/17 18:00 104 09/10/17 16:00 95 09/10/17 16:00 98.7 95 15 147/70 (95) 99 09/10/17 16:00 40 09/10/17 15:44 94 145/70 09/10/17 15:43 98 40 09/10/17 14:34 40 09/10/17 14:00 86 09/10/17 13:23 95 40 09/10/17 12:50 88 143/72 09/10/17 12:00 86 09/10/17 12:00 99.5 86 19 138/71 (93) 97 09/10/17 12:00 40 09/10/17 11:22 97 40 09/10/17 10:00 98 09/10/17 09:52 93 155/72 09/12/17 07:00 Intake Total 100 ml Balance 100 ml (Carmen Chamberlain) Physical Exam Ms. Haider remains intubated and sedated on propofol infusion. Mildly opens eyes but does not follow commands. Cranial Nerves: Pupils 3-4 mm round, reactive to light. Conjugate gaze Surgical wound is healing well, clean and dry. Motor: mildly withdraws in upper and lower extremities to local pain stimuli. not following for testing Mild bilateral Babinski response. No ankle clonus. Neck: soft, supple (Carmen Chamberlain) Medications Current Medications Current Medications Medications (Trade) Dose Ordered Sig/Christopher Route PRN Reason Start Time Stop Time Status Last Admin Dose Admin Sodium Chloride (NS Flush) 2 ml UNSCH PRN IV FLUSH FLUSH AFTER USING IV ACCESS 08/30/17 16:15 Sodium Chloride (NS Flush) 2 ml BID IV FLUSH 08/30/17 21:00 09/11/17 08:35 Ondansetron HCl (Zofran Inj) 4 mg Q6H PRN IV PUSH NAUSEA OR VOMITING 08/30/17 16:15 Albuterol Sulfate (Albuterol Neb) 2.5 mg Q2HR NEB PRN INH SOB/WHEEZING 08/30/17 16:15 09/11/17 00:48 Miscellaneous Information 1 Q361D XX 08/30/17 16:15 Chlorhexidine Gluconate (Chlorhexidine 2% Cloth) Taper DAILY@04 TOP 08/31/17 04:00 08/27/18 03:59 09/08/17 04:00 Chlorhexidine Gluconate (Chlorhexidine 2% Cloth) 3 pack UNSCH PRN TOP HYGIENIC CARE 08/30/17 16:15 Magnesium Hydroxide (Milk Of Magnesia Liq) 30 ml Q12H PRN PO Mild constipation 08/30/17 16:15 Sennosides (Senokot) 17.2 mg Q12H PRN PO Moderate constipation 08/30/17 16:15 Bisacodyl (Dulcolax Supp) 10 mg DAILY PRN RECTAL SEVERE CONSITIPATION 08/30/17 16:15 Atorvastatin Calcium (Lipitor) 40 mg HS PO 08/30/17 21:00 09/10/17 20:33 Doxepin HCl (SINEquan) 10 mg HS PO 08/30/17 21:00 09/10/17 21:13 Furosemide (Lasix) 40 mg DAILY PO 08/31/17 09:00 09/11/17 08:35 Levetriacetam 500 mg/Sodium Chloride 105 ml @ 420 mls/hr Q12HR IV 08/30/17 21:00 09/11/17 08:34 Dextrose (D50w (Vial) Inj) 50 ml UNSCH PRN IV PUSH HYPOGLYCEMIA-SEE COMMENTS 08/30/17 16:15 Glucagon (Glucagon Inj) 1 mg UNSCH PRN OTHER HYPOGLYCEMIA-SEE COMMENTS 08/30/17 16:15 Labetalol HCl (Trandate Inj) 10 mg Q1HR PRN IV PUSH SBP>140, DBP>90, HR>65 08/30/17 16:15 09/11/17 03:03 Hydralazine HCl (Apresoline Inj) 10 mg Q1HR PRN IV PUSH SBP>150, DBP>90 08/30/17 16:15 09/11/17 02:33 Nitroglycerin (Nitroglycerin 2% Oint) 2 inch Q6H PRN TOPICAL SBP>150, DBP>90 08/30/17 16:15 09/10/17 03:07 Calcium Gluconate (Calcium Gluconate Inj) 1 gm UNSCH PRN IV SEE LABEL COMMENTS 08/31/17 13:30 Acetaminophen/ Hydrocodone Bitart ([place] 10-325 Mg) 1 tab Q4H PRN PO PAIN SCALE 1 TO 5 08/31/17 13:30 Future Hold Acetaminophen/ Hydrocodone Bitart ([place] 10-325 Mg) 2 tab Q4H PRN PO PAIN SCALE 6 TO 10 08/31/17 13:30 Future Hold Morphine Sulfate (Morphine Inj) 2 mg Q2H PRN IV PUSH PAIN SCALE 1 TO 6 08/31/17 13:30 09/01/17 06:15 Morphine Sulfate (Morphine Inj) 4 mg Q2H PRN IV PUSH PAIN SCALE 7 TO 10 08/31/17 13:30 Cholecalciferol (Vitamin D3) 1,000 units DAILY PO 09/01/17 09:00 09/11/17 08:34 Patient Own Medication PT OWN MED: LINAGLIP... DAILY PO 09/01/17 09:00 Future Hold Chlorhexidine Gluconate (Peridex 0.12% Liq) 15 ml BID@08,20 MT 09/01/17 20:00 09/11/17 08:09 Sodium Chloride (NS Flush) DAILY IV FLUSH 09/01/17 10:30 09/08/17 08:54 Sodium Chloride (NS Flush) UNSCH PRN IV FLUSH SEE PROTOCOL 09/01/17 10:30 Artificial Tears (Tears Naturale Opth Soln) 1 drop Q8HR EACH EYE 09/01/17 14:00 09/11/17 05:06 Famotidine (Pepcid Inj) 20 mg Q12H IV PUSH 09/01/17 11:00 09/10/17 22:33 Isosorbide Dinitrate (Isordil) 10 mg Q8HR PO 09/01/17 14:00 09/11/17 05:05 Potassium Chloride 100 ml @ 50 mls/hr Q2H PRN IV For Potassium 2.8 - 3.2 mEq/L 09/02/17 06:30 09/11/17 07:16 Potassium Chloride 100 ml @ 50 mls/hr Q2H PRN IV For Potassium 2.8 - 3.2 mEq/L 09/02/17 06:30 Potassium Bicarb/ Potassium Chloride (K-Lyte Cl Eff) 50 meq UNSCH PRN PO For Potassium 3.3 - 3.5 mEq/L 09/02/17 06:30 Potassium Chloride 100 ml @ 25 mls/hr UNSCH PRN IV For Potassium 3.3 - 3.5 mEq/L 09/02/17 06:30 09/09/17 03:00 Potassium Chloride 100 ml @ 50 mls/hr Q2H PRN IV For Potassium 3.3 - 3.5 mEq/L 09/02/17 06:30 Magnesium Sulfate 4 gm/Sodium Chloride 100 ml @ 50 mls/hr UNSCH PRN IV For Magnesium 0.9 - 1.1 mg/dL 09/02/17 06:30 Magnesium Oxide (Mag-Ox) 800 mg UNSCH PRN PO For Magnesium 1.2 - 1.6 mg/dL 09/02/17 06:30 Magnesium Sulfate 2 gm/Sodium Chloride 100 ml @ 50 mls/hr UNSCH PRN IV For Magnesium 1.2 - 1.6 mg/dL 09/02/17 06:30 Potassium Phosphate (K-Phos) 2,000 mg Q4H PRN PO For Phosphorus < 2.5 mg/dL 09/02/17 06:30 Sodium Phosphate 30 mmol/Sodium Chloride 250 ml @ 42 mls/hr UNSCH PRN IV For Phosphorus < 2.5 mg/dL 09/02/17 06:30 Potassium Phosphate (K-Phos) 2,000 mg UNSCH PRN PO/TUBE SEE LABEL COMMENTS 09/02/17 06:30 Potassium Phosphate 30 mmol/ Sodium Chloride 260 ml @ 42 mls/hr UNSCH PRN IV SEE LABEL COMMENTS 09/02/17 06:30 09/02/17 08:28 Docusate Sodium (Colace Liq) 100 mg Q12HR PO 09/02/17 09:00 09/10/17 20:34 Sennosides (Senna Liq) 8.8 mg BID PO 09/02/17 09:00 09/10/17 20:33 Polyethylene Glycol (Miralax) 17 gm BID PO 09/02/17 09:00 09/10/17 20:32 Acetaminophen (Tylenol 650 Mg/ 20 ml Liq) 650 mg Q6H PRN PO temp greater than 101 09/02/17 07:15 09/08/17 12:26 Lactulose (Lactulose Liq) 30 ml BID PO 09/03/17 08:00 09/10/17 20:32 Insulin Human Regular (NovoLIN R SUPPLEMENTAL SCALE) 1 Q6HR SQ 09/03/17 12:00 09/11/17 05:26 Valproic Acid (Depakene Liq) 250 mg BID OG-TUBE 09/04/17 11:00 09/11/17 08:34 Insulin Detemir (Levemir Inj) 15 units Q12HR SQ 09/06/17 09:00 09/11/17 08:35 Amlodipine Besylate (Norvasc) 10 mg DAILY OG-TUBE 09/07/17 02:00 09/11/17 08:34 Miscellaneous (Pill Splitter) 1 ea UNSCH PRN OTHER SEE LABEL COMMENTS 09/07/17 02:00 Nicardipine HCl 50 mg/Sodium Chloride 500 ml @ 50 mls/hr TITRATE PRN IV Blood pressure management 09/07/17 20:45 09/11/17 09:06 Lisinopril (Prinivil) 20 mg BID PO 09/08/17 21:00 09/11/17 08:34 Hydralazine HCl (Apresoline) 100 mg Q8H PO 09/08/17 10:00 09/11/17 08:34 Metoprolol Tartrate (Lopressor) 100 mg Q12H PO 09/09/17 09:00 09/11/17 08:34 Tolterodine Tartrate (Detrol) 2 mg DAILY PO 09/10/17 12:00 09/11/17 08:34 Clonidine (Catapres-Tts 0.3 Mg Patch.7d) 1 patch Q7D T-DERMAL 09/11/17 09:30 UNV (Carmen Chamberlain) Medical Decision Making MDM Remarks 57 y/o female TBI following slip and fall on wet grass, she hit her face on concrete sidewalk, CT Brain on arrival with right subdural hematoma, diffuse SAH she underwent right side craniotomy for evacuation of subdural hematoma on 08/31 respiratory failure, reintubated 09/01/17 f/u CT Head 09/02 with improvement of right subdural hematoma, stable right temporal/parietal intraparenchymal hematoma, small right cerebellar contusion, and diffuse SAH, no new ICH f/u CT Head 09/05 stable to improving right temporal/parietal and cerebellar ICH EEG 09/01 neg for seizure uncontrolled hypertension requiring sedatives (Carmen Chamberlain) Plan Plan Remarks cont critical care management, - bp management cont sedation and vent weaning as tolerated, daily CPAP trials will follow (Carmen Chamberlain) Attending Statement The exam, history, and the medical decision-making described in the above note were completed with the assistance of the mid-level provider. I reviewed and agree with the findings presented. I attest that I had a [id number] encounter with the patient on the same day, and personally performed and documented my assessment and findings in the medical record. (Yannick Aiken MD) Carmen Chamberlain Sep 11, 2017 09:38 Yannick Aiken MD Sep 14, 2017 21:35
[2017-09-11] MEDS: FAMOTIDINE 20 MG/2 ML VIAL IV PUSH SCH ×2 (10:39→22:06)
[2017-09-11] MEDS: cefTRIAXone INJ 1,000 MG in SODIUM CHLORIDE 0.9% INJ 100 ML IV SCH (10:39)
[2017-09-11] MEDS: cloNIDine HCL 0.3 MG/24 HR PATCH T-DERMAL SCH (11:48)
[2017-09-11] MEDS: ATORVASTATIN 40 MG TAB PO SCH (20:02)
[2017-09-11] MEDS: DOXEPIN HCL 10 MG CAP PO SCH (20:42)
[2017-09-12] VITALS (17 sets, daily range): BP systolic 122–154; BP diastolic 57–82; PULSE 82–102; RESP 10–23; TEMP 99–99.5; O2SAT 95–100
[2017-09-12] MEDS: hydrALAZINE HCL 100 MG TAB PO SCH ×3 (01:03→18:03)
[2017-09-12] MEDS: niCARdipine INJ 50 MG in SODIUM CHLORID 0.9% 500 ML INJ 480 ML IV PRN ×2 (02:14→05:22)
[2017-09-12] MEDS: hydrALAZINE HCL 20 MG/ML VIAL IV PUSH PRN (03:54)
[2017-09-12] MEDS: CHLORHEXIDINE GLUCONATE 2 % 1 PACK (2 CLOTHS) TOP SCH (04:00)
[2017-09-12] MEDS: ARTIFICIAL TEARS OPTH SOLN 15 ML BTL EACH EYE SCH ×2 (05:14→14:00)
[2017-09-12] MEDS: INSULIN NovoLIN REGULAR SUPPLEMENTAL SCALE SQ SCH ×3 (05:15→18:00)
[2017-09-12] MEDS: ISOSORBIDE DINITRATE 10 MG TAB PO SCH ×2 (05:15→13:34)
[2017-09-12] MEDS: LABETALOL HCL 100 MG/20 ML VIAL IV PUSH PRN (05:15)
--- NOTE | 2017-09-12 08:05 | HHI.PR ---
Neuropsych Emotional Emotional: UnabletoAssess: Emotional, Anxious/Fearful, Depressed/Sad, Hostile/ Resentful, Irritable/Angry/Frustrate, Labile, Constricted/Blunted Behavior Behavior: Unable to Asses: Behavior, Coping/Acceptance, Cooperative w/ Treatment, Motivation, Frustration Tolerance/[place], Impulsive/Agitated, Suicidal/ Homicidal Risk Cognitive Cognitive: Unable to Asses: Cognitive, Attention/Concentration, Confused/ Orientation, Insight/Awareness, Judgement/Problem-Solving, Memory Psychosocial Psychosocial: Severe: Psychosocial, Family/Other Adjustment, Realistic Expectation, Unable to Asses: Self-Esteem/Confidence Progress Notes/Response to Tx Contents of Sessions: Adjustment, Level of Consciousness Time with Patient: 15 minutes Premorbid psychological status Premorbid Cognitive, Emotional and Behavioral Status: Unable to Assess. The patient's history is unclear other than she had prior psychiatric diagnoses in the past. Behavioral Reactions of Patient and Family/Support System: Unable to Assess. The patients family is likely experiencing ongoing issues of adjustment given the nature of the injury, and this aspect of recovery will require ongoing monitoring. Emotional/Behavioral Status of Patient and Family/Support System: Unable to Assess. Pertinent issues, if appropriate to this patients clinical care, are described in detail above. Maximizing acute care outcome It is recommended that the patient be monitored for emergent behavioral impulsivity as the medical condition evolves. This patients neuropathological challenges may limit their rehabilitation potential going forward, and these challenges will require specialized therapeutic skills to maximize outcome. Additionally, the patients family is experiencing ongoing issues of adjustment given the traumatic nature of the injury, and they may benefit from ongoing psychological assistance. Anticipated Problems Ongoing areas of concern will include behavioral impulsivity, lack of insight and judgment, which is expected to improve with time and treatment. Presently , the patient remains intubated and sedated. Treatment Plan This clinician will continue to follow with you throughout the course of this patients acute care treatment, and I will be available to meet with the patient s family/support system to facilitate their understanding and the ongoing care of their family member. The goals of neuropsychological intervention shall be both educational and supportive to the family/support system as is deemed clinically appropriate. [facility] Level: III:Localized response-total assist Impression This 57 year old woman is s/p TBI 2T fall on 08/31/2017, who is now intubated and sedated. She has a history of schizoaffective disorder prior to her TBI. Diagnosis: (1) Major neurocognitive disorder as late effect of traumatic brain injury without behavioral disturbance (2) Schizoaffective disorder Status: Acute Progress Note Narrative Ongoing follow-up of patient seen bedside. This is day 13 post injury. The patient remains sedated/drowsy, intubated. No significant neurobehavioral challenges at present. RN reports that she is tracking, inconsistently following and is having pulmonary challenges. She appears to be around [place], but sedated. I will continue to follow. Problem Qualifiers (1) Schizoaffective disorder: Qualified Codes: F25.0 - Schizoaffective disorder, bipolar type Bhavik Crabtree PhD Sep 12, 2017 8:05 am
[2017-09-12] MEDS: VALPROIC ACID SYRUP 250 MG/5 ML UDC OG-TUBE SCH (08:33)
[2017-09-12] MEDS: CHLORHEXIDINE 0.12% (ORAL KIT) 15 ML CUP MT SCH ×2 (08:33→20:00)
[2017-09-12] MEDS: LACTULOSE SYRUP 20 GM/30 ML CUP PO SCH ×2 (08:33→21:00)
[2017-09-12] MEDS: CHOLECALCIFEROL (VIT D3) 1000 UNIT TAB PO SCH (08:34)
[2017-09-12] MEDS: METOPROLOL TARTRATE 25 MG TAB PO SCH (08:34)
[2017-09-12] MEDS: DOCUSATE SODIUM 100 MG/10 ML UDC PO SCH ×2 (08:34→21:00)
[2017-09-12] MEDS: TOLTERODINE TARTRATE 2 MG TAB PO SCH (08:35)
[2017-09-12] MEDS: LISINOPRIL 20 MG TAB PO SCH ×2 (08:35→09:32)
[2017-09-12] MEDS: POLYETHYLENE GLYCOL 17 GM PKG PO SCH ×2 (08:35→21:00)
[2017-09-12] MEDS: FUROSEMIDE 40 MG TAB PO SCH (08:35)
[2017-09-12] MEDS: SODIUM CHLORIDE 0.9% FLUSH 10 ML FLUSH IV FLUSH SCH ×2 (08:36→08:37)
[2017-09-12] MEDS: SENNOSIDES SYRUP 8.8 MG/5 ML CUP PO SCH ×2 (08:36→21:00)
[2017-09-12] MEDS: INSULIN DETEMIR 100 UNITS/ML VIAL SQ SCH (08:38)
[2017-09-12] MEDS: levETIRAcetam INJ 500 MG in SODIUM CHLORIDE 0.9% INJ 100 ML IV SCH (08:38)
[2017-09-12] MEDS: cefTRIAXone INJ 1,000 MG in SODIUM CHLORIDE 0.9% INJ 100 ML IV SCH (09:03)
--- NOTE | 2017-09-12 10:12 | HHI.CCPN ---
Subjective Remarks/Hospital Course 57-year-old AA female . Date of admission 08/30/2017. Past medical history includes schizoaffective/bipolar, depression, seizure disorder, hypertension, dyslipidemia, diabetes and allergic rhinitis. She is not on any blood thinners or aspirin. This patient was walking from [employer] in approximately 6 AM this morning when she suffered a fall and landed on the right side of her face.. She states she slipped in the wet grass hitting her face on the concrete. No loss of consciousness. Not seizure activity noted. Not tongue biting. No incontinence of stool or urine. 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 Patient states that she's been having a headache and right-sided facial pain since. 08/30 CT of the brain showed a right frontotemporal subdural hematoma 1.6 cm with a 3 mm right to left shift. Maxillofacial CT revealed a nondisplaced right nasal fracture. CT spine negative. CBC showed normocytic anemia. BMP is pending. Elevated PTT coags at 33. Patient was loaded with 500 mg levetiracetam, given as needed for elevated blood pressure stabilized in the ED. Neurosurgical consultation was requested with Dr. Aiken. 08/31: Afebrile. CT brain revealed increased diameter right-sided subdural hematoma up to 1.9 cm. Shift is 1 mm right to left. Positive headache. No seizure activity. No real focal neurological deficits. 09/01: Patient subjective a weak left upper and lower extremity greater than right. Mumbling words. Stat CT brain revealed 2.6 cm image right intraparenchymal hemorrhage on the right temporal parietal region, 0.9 cm right cerebellar hemorrhage and bilateral subarachnoid hemorrhage convex's. Notified Dr. Aiken. Patient was intubated for airway protection and central line placed for hypertonic saline 09/02: Tmax 99.9. Improved subarachnoid hemorrhage. Stable right intraparenchymal hemorrhages. Potassium and phosphorus been replaced. No bowel movement. Subjective 09/03: Currently afebrile. Remains on propofol and fentanyl drips for sedation. Tolerating tube feeds at goal. Arousable with open eyes but not following commands currently. 09/04: Remains sedated, orally intubated on mechanical ventilation. Tolerating tube feeds. 09/05: Remains sedated, orally intubated on mechanical ventilation. Tolerating tube feeds. 09/06: Breathes over vent despite sedation. Withdraws limbs. 09/07: Remains sedated, orally intubated on mechanical ventilation. Tolerating tube feeds. 09/08: Will work toward extubation when OK with Neurosurgery. 09/09: Remains sedated, orally intubated on mechanical ventilation. Tolerating tube feeds. 09/10: Remains sedated, orally intubated on mechanical ventilation. Tolerating tube feeds. 09/11: Remains drowsy, orally intubated on mechanical ventilation. Tolerating tube feeds. Daily C Pap trials ongoing. Remains on nicardipine drip. 09/12: Remains drowsy, encephalopathic, orally intubated on mechanical ventilation. Tolerating tube feeds. Daily C Pap trials ongoing. Remains on nicardipine drip. Objective Vital Signs Date Time Temp Pulse Resp B/P (MAP) Pulse Ox O2 Delivery O2 Flow Rate FiO2 09/12/17 09:44 40 09/12/17 09:39 100 09/12/17 08:00 99.5 95 21 150/62 (91) Intake and Output 09/12/17 09/12/17 09/13/17 08:00 16:00 00:00 Intake Total 1847 ml Output Total 1550 ml Balance 297 ml Result Diagram: 09/11/17 0400 09/12/17 0750 Other Results Microbiology Date/Time Source Procedure Growth Status 09/09/17 10:50 Sputum Endotracheal Gram Stain - Final Complete 09/09/17 10:50 Sputum Endotracheal Sputum Culture - Final HEAVY GROWTH NORMAL RESPIRATORY ALFREDO Complete Imaging Last Impressions Chest X-Ray 09/03/17 06 Signed Impressions: Service Date/Time: Sunday, September 03, 2017 04:42 - CONCLUSION: 1. Bibasilar atelectasis, slightly improved in the right lower lobe but slightly worsened left lower lobe. Fantasma Miller MD Head CT 09/02/17 06 Signed Impressions: Service Date/Time: Saturday, September 02, 2017 04:41 - CONCLUSION: 1. Mild interval improvement in subarachnoid hemorrhage over the parietal convexities. 2. Stable intraparenchymal hemorrhage in the right parietal lobe and right cerebellar hemisphere. 3. The subdural drainage catheter remains in place with no residual subdural hematoma. 4. No new hemorrhage or mass effect. Tyree Wise MD Abdomen X-Ray 09/01/17 0000 Signed Impressions: Service Date/Time: Friday, September 01, 2017 18:29 - CONCLUSION: Nasogastric tube coiled in the stomach with the tip projecting towards the GE junction. Migue Cuenca Jr., MD Maxillofacial CT 08/30/17 0000 Signed Impressions: Service Date/Time: , August 30, 2017 15:13 - CONCLUSION: 1. There is a minimally depressed right nasal bone fracture with adjacent soft tissue swelling. No other fracture is visualized. 2. Please refer to head CT report for description of the right subdural hematoma. Nacho Buckley MD Lumbar Spine CT 08/30/17 0000 Signed Impressions: Service Date/Time: August 17:59 - CONCLUSION: Negative examination. Alec Latham MD Cervical Spine CT 08/30/17 0000 Signed Impressions: Service Date/Time: , August 30, 2017 15:12 - CONCLUSION: 1. No acute fracture or subluxation. Skinny Muñiz MD Objective Remarks GENERAL: 57-year-old AA female, resting in bed orotracheally intubated SKIN: Warm and dry. Abrasions to the right cheek and chin with evolving ecchymoses HEAD: Status post right craniotomy with subdural, scalp drain in place EYES: Pupils equal and round about 3 mm bilaterally and reactive. Right eyelid swollen, protuberant globe. No scleral icterus. No injection or drainage. ENT: No nasal bleeding or discharge. Mucous membranes pink and moist. NECK: Trachea midline. Orally intubated. CARDIOVASCULAR: Tachycardia, RR. S1, S2. No S4. Without murmur. No JVD. RESPIRATORY: Clear to auscultation. Breath sounds equal bilaterally. Nio adventitious sounds. GASTROINTESTINAL: Abdomen soft, non-tender, nondistended. Bowel sounds are sluggish but appreciated MUSCULOSKELETAL: Extremities without significant peripheral edema. No obvious deformities. Well perfused. NEUROLOGICAL: Drowsy/encephalopathic, orally intubated, arouses on command, Withdraws to pain bilateral upper and lower extremities. Not following commands Date of Insertion: Sep 01, 2017 Line: Central Venous Catheter Side: Left Location: Internal, Jugular A/P Assessment and Plan Neuro/Psych: s/p right craniotomy with evacuation of subdural hematoma 2.6 cm right parietal/temporal intracranial hemorrhage, 0.9 cm right subdural hemorrhage and bilateral subarachnoid hemorrhage Right subdural hematoma - 1.6 cm fronto temporal with a 3 mm right to left shift Right closed nondisplaced nasal fracture Schizoaffective disorder Bipolar disorder Depression Seizure disorder NOS Off propofol and fentanyl drips for more than 24 hours. Remains drowsy, arousable CT brain 08/30 revealed a right frontal temporal subdural hematoma 1.6 cm thickness with a 3 mm right to left shift. Nondisplaced right nasal bone fracture. CT brain 08/31 revealed 2.6 cm right parietal intracranial hemorrhage, 0.9 cm right subdural hemorrhage and bilateral subarachnoid hemorrhage CT brain 09/01 revealed stable intraparenchymal hemorrhage improving subarachnoid hemorrhage at the convex CT Head 09/05 with stable areas of ICH/ SAH. EEG 08/31 revealed generalized slowing/encephalopathy. Disruption right side secondary to intraparenchymal hemorrhage. Levetiracetam 500 mg IV twice a day for seizure prophylaxis 7 days Resumed home dose of valproic acid 250mg BID via OGT. Goal keep systolic blood pressure less than 140. Neurochecks Head of bed at 30 Stopped hypertonic saline 09/05 per neurosurgery. Evaluated by Dr. Aiken/neurosurgery Continue doxepin 10 mg by mouth daily Holding loratadine 10 mg by mouth daily CV: Hypertension Dyslipidemia Increase metoprolol 100 mg via OGT Q6hrly for hypertension on 09/12. Prinivil 20mg BID. Continue isosorbide mononitrate 30 mg by mouth daily but switch to isosorbide dinitrate 10 mg 3 times a day As needed labetalol, hydralazine, Nitropaste and nicardipine drip to keep systolic blood pressure less than 140. Added Norvasc 10 mg via OG tube daily on 09/07. Added Catapres patch 0.3 mg per day on 09/11 titrate off nicardipine drip as tolerated Continue atorvastatin 40 mg by mouth daily for dyslipidemia Resp: PRVC 16/500/11/16/39 Ventilator bundle Albuterol/after aerosols every 6 hours with albuterol aerosols every 2 hours prn dyspnea Spontaneous breathing trials daily Chest x-ray revealed bilateral lower lobe atelectasis left greater than right. GI: Continue tube feeding with vital 1.5 goal 50 cc an hour Famotidine for GI prophylaxis Docusate sodium/senna and polyethylene glycol twice a day for bowel regimen. Add lactulose and mineral oil 1 today and a one-time dose of 12 mg subcutaneous methylnaltrexone : Incontinence Porter catheter if indicated for accurate I's and O's in a critically ill patient Holding Tolterodine 2 mg by mouth daily. Resume when clinically indicated Endo: Diabetes History of hypothyroidism/thyroid nodules Holding metformin 1000 mg daily and Linagliptin 5 mg daily for diabetes. Sliding-scale insulin with Accu-Cheks to maintain euglycemia detemir 15 units twice a day Renal: History of renal cell carcinoma status post right nephrectomy KVO IVF 09/05 Monitor urine output Accurate I's and O's Follow-up ER BMP not completed Heme: Normocytic anemia Elevated PTT Thrombocytopenia Monitor CBC daily. Follow trends Does not meet transfusion thresholds at this time ID: Patient noted to have fevers and left shift with bands noted on peripheral smear. Obtained allen cultures and initiated empiric antibiotic coverage with IV Zosyn 09/09, discontinued on 09/11 as urine culture growing Escherichia coli sensitive to Rocephin. De-escalated to Rocephin 1 g IV daily starting 09/11. FEN: Hypophosphatemia Hypokalemia Replace electrolytes as clinically indicated per ICU electrolyte protocol. Holding cholecalciferol 1000 U daily. Resume when clinically indicated MSK: Osteoarthritis Physical therapy evaluate and treat Access -Left IJ CVL Prophylaxis - GI famotidine - DVT- SCD/holding pharmacological prophylaxis in light of subdural hematoma Patient remains critical with SDH, cerebral edema status post craniotomy Overall impression: Remains critically ill after evacuation of SDH. Unable to wean ventilator. To encephalopathic to protect airway currently. Need more aggressibe BP control. We'll probably need tracheostomy and PEG tube placement. We'll consult GI for PEG tube. Critical care 35 mins Skyler Taylor MD Sep 12, 2017 10:12
--- NOTE | 2017-09-12 10:17 | HHI.NSPN ---
(Carmen Chamberlain) Note Status Status: Progress Note (Carmen Chamberlain) Interval History Interval History This is a 57-year-old female who apparently is status post slip and fall around 6 AM this morning. She states she was on her way to [facility] she had some eggs when she slipped in the wet grass hitting her face on the concrete. No loss of consciousness. Not seizure activity noted. Not tongue biting. No incontinence of stool or urine. 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 Patient states that she' s been having a headache and right-sided facial pain since. She denies any chest pain, shortness of breath, change in vision, numbness or tingling anywhere , neck pain, back pain, loss or change in bowel or bladder, or being on any blood thinners. She is moving where both upper and lower extremities without any focal deficit. CT of the brain showed a right sided accurate subdural hematoma causing mass effect and midline shift. The subdural was hematoma 1.6 cm thick with a 3 mm right to left shift. Maxillofacial CT revealed a nondisplaced right nasal fracture. CT spine negative. Neurosurgical consultation was requested 09/01: Letahrgic today. Open eyes follows commands withn all [address] brain showed new frontal and post fossa bleed 09/02: remains intubated, off sedation she slightly opens eyes and moves all four extremities. EEG yesterday neg for seizures. 09/03: intubated, again off sedation reports to open her eyes and moves x 4, but not following commands 09/04: nursing reports minimal eye opening, moves x 4. intubated and sedated. 09/05: f/u CT Head completed, stable right temporal and cerebellar hemorrhage, no significant midline shift or mass effect. remains intubated and sedated. 09/06: remains intubated and well sedated for blood pressure control. 09/07: sedation lowered, eyes open, moving legs intermittently?to command. did not follow in the upper extremities. 09/10: on nicardipine drip. remains intubated on propofol drip. mildly opens eyes, withdraws to pain x 4 ext 09/11 intubated, CPAP trial. Remains on nicardipine drip. minimally open eyes , moves ext intermittently. 09/12: more awake today, tracking, giving thumbs up. remains intubated. (Carmen Chamberlain) Labs, Micro, & Vital Signs Results Date Time Temp Pulse Resp B/P (MAP) Pulse Ox O2 Delivery O2 Flow Rate FiO2 09/12/17 09:44 40 09/12/17 09:39 100 40 09/12/17 09:39 40 09/12/17 09:26 99 40 09/12/17 08:00 99.5 95 21 150/62 (91) 09/12/17 08:00 40 09/12/17 06:00 96 09/12/17 05:22 85 176/77 09/12/17 04:35 95 40 09/12/17 04:00 40 09/12/17 04:00 102 09/12/17 04:00 99.2 102 20 153/70 (97) 96 09/12/17 02:14 93 151/74 09/12/17 02:00 90 09/12/17 01:23 99 40 09/12/17 00:00 84 09/12/17 00:00 40 09/12/17 00:00 99.5 93 16 145/72 (96) 100 09/11/17 23:17 94 145/74 09/11/17 23:03 91 134/73 09/11/17 22:57 99 40 09/11/17 22:00 80 09/11/17 20:00 99.2 100 19 151/72 (98) 100 09/11/17 20:00 98 09/11/17 20:00 40 09/11/17 19:35 91 156/83 09/11/17 18:00 103 09/11/17 16:00 99.6 96 16 143/76 (98) 100 09/11/17 16:00 95 09/11/17 16:00 100 139/77 09/11/17 16:00 40 09/11/17 15:29 99 40 09/11/17 14:00 96 09/11/17 12:30 91 137/68 09/11/17 12:00 40 09/11/17 12:00 99.7 88 16 136/69 (91) 100 09/11/17 12:00 88 09/11/17 10:14 98 40 Constitutional Vital Signs Date Time Temp Pulse Resp B/P (MAP) Pulse Ox O2 Delivery O2 Flow Rate FiO2 09/12/17 09:44 40 09/12/17 09:39 100 40 09/12/17 09:39 40 09/12/17 09:26 99 40 09/12/17 08:00 99.5 95 21 150/62 (91) 09/12/17 08:00 40 09/12/17 06:00 96 09/12/17 05:22 85 176/77 09/12/17 04:35 95 40 09/12/17 04:00 40 09/12/17 04:00 102 09/12/17 04:00 99.2 102 20 153/70 (97) 96 09/12/17 02:14 93 151/74 09/12/17 02:00 90 09/12/17 01:23 99 40 09/12/17 00:00 84 09/12/17 00:00 40 09/12/17 00:00 99.5 93 16 145/72 (96) 100 09/11/17 23:17 94 145/74 09/11/17 23:03 91 134/73 09/11/17 22:57 99 40 09/11/17 22:00 80 09/11/17 20:00 99.2 100 19 151/72 (98) 100 09/11/17 20:00 98 09/11/17 20:00 40 09/11/17 19:35 91 156/83 09/11/17 18:00 103 09/11/17 16:00 99.6 96 16 143/76 (98) 100 09/11/17 16:00 95 09/11/17 16:00 100 139/77 09/11/17 16:00 40 09/11/17 15:29 99 40 09/11/17 14:00 96 09/11/17 12:30 91 137/68 09/11/17 12:00 40 09/11/17 12:00 99.7 88 16 136/69 (91) 100 09/11/17 12:00 88 09/11/17 10:14 98 40 (Carmen Chamberlain) Review of Systems ROS Limitations: Intubated (Carmen Chamberlain) Physical Exam Ms. Haider remains intubated, off sedation. Drowsy but awake, eye open and tracking following few simple command, giving thumbs up to commands. Cranial Nerves: Pupils 3-4 mm round, reactive to light. gross EOMs when tracking Surgical wound is healing well, clean and dry. Motor:moves both upper and lower extremities grossly to command Mild bilateral Babinski response. No ankle clonus. Neck: soft, supple (Carmen Chamberlain) Medications Current Medications Current Medications Medications (Trade) Dose Ordered Sig/Christopher Route PRN Reason Start Time Stop Time Status Last Admin Dose Admin Sodium Chloride (NS Flush) 2 ml UNSCH PRN IV FLUSH FLUSH AFTER USING IV ACCESS 08/30/17 16:15 Sodium Chloride (NS Flush) 2 ml BID IV FLUSH 08/30/17 21:00 09/12/17 08:36 Ondansetron HCl (Zofran Inj) 4 mg Q6H PRN IV PUSH NAUSEA OR VOMITING 08/30/17 16:15 Albuterol Sulfate (Albuterol Neb) 2.5 mg Q2HR NEB PRN INH SOB/WHEEZING 08/30/17 16:15 09/11/17 00:48 Miscellaneous Information 1 Q361D XX 08/30/17 16:15 Chlorhexidine Gluconate (Chlorhexidine 2% Cloth) Taper DAILY@04 TOP 08/31/17 04:00 08/27/18 03:59 09/08/17 04:00 Chlorhexidine Gluconate (Chlorhexidine 2% Cloth) 3 pack UNSCH PRN [facility] 08/30/17 16:15 Magnesium Hydroxide (Milk Of Magnesia Liq) 30 ml Q12H PRN PO Mild constipation 08/30/17 16:15 Sennosides (Senokot) 17.2 mg Q12H PRN PO Moderate constipation 08/30/17 16:15 Bisacodyl (Dulcolax Supp) 10 mg DAILY PRN RECTAL SEVERE CONSITIPATION 08/30/17 16:15 Atorvastatin Calcium (Lipitor) 40 mg HS PO 08/30/17 21:00 09/11/17 20:02 Doxepin HCl (SINEquan) 10 mg HS PO 08/30/17 21:00 09/11/17 20:42 Furosemide (Lasix) 40 mg DAILY PO 08/31/17 09:00 09/12/17 08:35 Levetriacetam 500 mg/Sodium Chloride 105 ml @ 420 mls/hr Q12HR IV 08/30/17 21:00 09/12/17 08:38 Dextrose (D50w (Vial) Inj) 50 ml UNSCH PRN IV PUSH HYPOGLYCEMIA-SEE COMMENTS 08/30/17 16:15 Glucagon (Glucagon Inj) 1 mg UNSCH PRN OTHER HYPOGLYCEMIA-SEE COMMENTS 08/30/17 16:15 Labetalol HCl (Trandate Inj) 10 mg Q1HR PRN IV PUSH SBP>140, DBP>90, HR>65 08/30/17 16:15 09/12/17 05:15 Hydralazine HCl (Apresoline Inj) 10 mg Q1HR PRN IV PUSH SBP>150, DBP>90 08/30/17 16:15 09/12/17 03:54 Nitroglycerin (Nitroglycerin 2% Oint) 2 inch Q6H PRN TOPICAL SBP>150, DBP>90 08/30/17 16:15 09/10/17 03:07 Calcium Gluconate (Calcium Gluconate Inj) 1 gm UNSCH PRN IV SEE LABEL COMMENTS 08/31/17 13:30 Acetaminophen/ Hydrocodone Bitart (Emery 10-325 Mg) 1 tab Q4H PRN PO PAIN SCALE 1 TO 5 08/31/17 13:30 Future Hold Acetaminophen/ Hydrocodone Bitart (Emery 10-325 Mg) 2 tab Q4H PRN PO PAIN SCALE 6 TO 10 08/31/17 13:30 Future Hold Morphine Sulfate (Morphine Inj) 2 mg Q2H PRN IV PUSH PAIN SCALE 1 TO 6 08/31/17 13:30 09/01/17 06:15 Morphine Sulfate (Morphine Inj) 4 mg Q2H PRN IV PUSH PAIN SCALE 7 TO 10 08/31/17 13:30 Cholecalciferol (Vitamin D3) 1,000 units DAILY PO 09/01/17 09:00 09/12/17 08:34 Patient Own Medication PT OWN MED: LINAGLIP... DAILY PO 09/01/17 09:00 Future Hold Chlorhexidine Gluconate (Peridex 0.12% Liq) 15 ml BID@08,20 MT 09/01/17 20:00 09/12/17 08:33 Sodium Chloride (NS Flush) DAILY IV FLUSH 09/01/17 10:30 09/08/17 08:54 Sodium Chloride (NS Flush) UNSCH PRN IV FLUSH SEE PROTOCOL 09/01/17 10:30 Artificial Tears (Tears Naturale Opth Soln) 1 drop Q8HR EACH EYE 09/01/17 14:00 09/12/17 05:14 Famotidine (Pepcid Inj) 20 mg Q12H IV PUSH 09/01/17 11:00 09/11/17 22:06 Isosorbide Dinitrate (Isordil) 10 mg Q8HR PO 09/01/17 14:00 09/12/17 05:15 Potassium Chloride 100 ml @ 50 mls/hr Q2H PRN IV For Potassium 2.8 - 3.2 mEq/L 09/02/17 06:30 09/11/17 07:16 Potassium Chloride 100 ml @ 50 mls/hr Q2H PRN IV For Potassium 2.8 - 3.2 mEq/L 09/02/17 06:30 Potassium Bicarb/ Potassium Chloride (K-Lyte Cl Eff) 50 meq UNSCH PRN PO For Potassium 3.3 - 3.5 mEq/L 09/02/17 06:30 Potassium Chloride 100 ml @ 25 mls/hr UNSCH PRN IV For Potassium 3.3 - 3.5 mEq/L 09/02/17 06:30 09/09/17 03:00 Potassium Chloride 100 ml @ 50 mls/hr Q2H PRN IV For Potassium 3.3 - 3.5 mEq/L 09/02/17 06:30 Magnesium Sulfate 4 gm/Sodium Chloride 100 ml @ 50 mls/hr UNSCH PRN IV For Magnesium 0.9 - 1.1 mg/dL 09/02/17 06:30 Magnesium Oxide (Mag-Ox) 800 mg UNSCH PRN PO For Magnesium 1.2 - 1.6 mg/dL 09/02/17 06:30 Magnesium Sulfate 2 gm/Sodium Chloride 100 ml @ 50 mls/hr UNSCH PRN IV For Magnesium 1.2 - 1.6 mg/dL 09/02/17 06:30 Potassium Phosphate (K-Phos) 2,000 mg Q4H PRN PO For Phosphorus < 2.5 mg/dL 09/02/17 06:30 Sodium Phosphate 30 mmol/Sodium Chloride 250 ml @ 42 mls/hr UNSCH PRN IV For Phosphorus < 2.5 mg/dL 09/02/17 06:30 Potassium Phosphate (K-Phos) 2,000 mg UNSCH PRN PO/TUBE SEE LABEL COMMENTS 09/02/17 06:30 Potassium Phosphate 30 mmol/ Sodium Chloride 260 ml @ 42 mls/hr UNSCH PRN IV SEE LABEL COMMENTS 09/02/17 06:30 09/02/17 08:28 Docusate Sodium (Colace Liq) 100 mg Q12HR PO 09/02/17 09:00 09/12/17 08:34 Sennosides (Senna Liq) 8.8 mg BID PO 09/02/17 09:00 09/12/17 08:36 Polyethylene Glycol (Miralax) 17 gm BID PO 09/02/17 09:00 09/10/17 20:32 Acetaminophen (Tylenol 650 Mg/ 20 ml Liq) 650 mg Q6H PRN PO temp greater than 101 09/02/17 07:15 09/08/17 12:26 Lactulose (Lactulose Liq) 30 ml BID PO 09/03/17 08:00 09/12/17 08:33 Insulin Human Regular (NovoLIN R SUPPLEMENTAL SCALE) 1 Q6HR SQ 09/03/17 12:00 09/12/17 05:15 Valproic Acid (Depakene Liq) 250 mg BID OG-TUBE 09/04/17 11:00 09/12/17 08:33 Insulin Detemir (Levemir Inj) 15 units Q12HR SQ 09/06/17 09:00 09/12/17 08:38 Amlodipine Besylate (Norvasc) 10 mg DAILY OG-TUBE 09/07/17 02:00 09/12/17 08:33 Miscellaneous (Pill Splitter) 1 ea UNSCH PRN OTHER SEE LABEL COMMENTS 09/07/17 02:00 Nicardipine HCl 50 mg/Sodium Chloride 500 ml @ 50 mls/hr TITRATE PRN IV Blood pressure management 09/07/17 20:45 09/12/17 05:22 Lisinopril (Prinivil) 20 mg BID PO 09/08/17 21:00 09/12/17 09:32 Hydralazine HCl (Apresoline) 100 mg Q8H PO 09/08/17 10:00 09/12/17 08:34 Metoprolol Tartrate (Lopressor) 100 mg Q12H PO 09/09/17 09:00 09/12/17 08:34 Tolterodine Tartrate (Detrol) 2 mg DAILY PO 09/10/17 12:00 09/12/17 08:35 Clonidine (Catapres-Tts 0.3 Mg Patch.7d) 1 patch Q7D T-DERMAL 09/11/17 11:00 09/11/17 11:48 Ceftriaxone Sodium 1000 mg/ Sodium Chloride 100 ml @ 200 mls/hr Q24H IV 09/11/17 10:00 09/12/17 09:03 (Carmen Chamberlain) Medical Decision Making MDM Remarks 57 y/o female TBI following slip and fall on wet grass, she hit her face on concrete sidewalk, CT Brain on arrival with right subdural hematoma, diffuse SAH she underwent right side craniotomy for evacuation of subdural hematoma on 08/31 respiratory failure, reintubated 09/01/17 f/u CT Head 09/02 with improvement of right subdural hematoma, stable right temporal/parietal intraparenchymal hematoma, small right cerebellar contusion, and diffuse SAH, no new ICH f/u CT Head 09/05 stable to improving right temporal/parietal and cerebellar ICH EEG 09/01 neg for seizure (Carmen Chamberlain) Plan Plan Remarks neuro exam improving, cont critical care management, cont sedation and vent weaning as tolerated, daily CPAP trials dc sidney this sunday (Carmen Chamberlain) Attending Statement The exam, history, and the medical decision-making described in the above note were completed with the assistance of the mid-level provider. I reviewed and agree with the findings presented. I attest that I had a [id number] encounter with the patient on the same day, and personally performed and documented my assessment and findings in the medical record. (Yannick Aiken MD) Carmen Chamberlain Sep 12, 2017 10:17 Yannick Aiken MD Sep 14, 2017 21:38
[2017-09-12] MEDS: FAMOTIDINE 20 MG/2 ML VIAL IV PUSH SCH (10:51)
[2017-09-12] MEDS: POTASSIUM CHLOR 40 MEQ PREMIX 100 ML IV PRN (10:52)
[2017-09-12] MEDS: METOPROLOL TARTRATE 100 MG TAB PO SCH ×2 (13:00→18:03)
--- NOTE | 2017-09-12 15:51 | PD.CONS ---
HPI History of Present Illness This is a 57 year old female with hx schizo affective disorder, seizure disorder , DM HTN who presented after a fall on concrete, was found to have SDH, s/p crani. She is still vent dependent. GI has been consulted for PEG tube placement. PFSH Past Medical History schizo affective bipolar fall seizure disorder DM HTN SDH SAH Past Surgical History crani & evacuation SDH Coded Allergies: haloperidol (Unverified Allergy, Severe, 08/30/17) olanzapine (Unverified Allergy, Severe, 08/30/17) sertraline (Unverified Allergy, Unknown, 08/30/17) Family History unk Social History unk Review of Systems ROS noncontributory GI Exam Vitals I&O Vital Signs Date Time Temp Pulse Resp B/P (MAP) Pulse Ox O2 Delivery O2 Flow Rate FiO2 09/12/17 15:03 82 192/58 09/12/17 14:06 97 40 09/12/17 12:38 100 40 09/12/17 12:30 40 09/12/17 12:13 97 40 09/12/17 12:00 40 09/12/17 12:00 99.2 91 10 154/82 (106) 99 09/12/17 10:52 94 145/73 09/12/17 09:44 40 09/12/17 09:39 100 40 09/12/17 09:39 40 09/12/17 09:26 99 40 09/12/17 08:00 99.5 95 21 150/62 (91) 09/12/17 08:00 40 09/12/17 06:00 96 09/12/17 05:22 85 176/77 09/12/17 04:35 95 40 09/12/17 04:00 40 09/12/17 04:00 102 09/12/17 04:00 99.2 102 20 153/70 (97) 96 09/12/17 02:14 93 151/74 09/12/17 02:00 90 09/12/17 01:23 99 40 09/12/17 00:00 84 09/12/17 00:00 40 09/12/17 00:00 99.5 93 16 145/72 (96) 100 09/11/17 23:17 94 145/74 09/11/17 23:03 91 134/73 09/11/17 22:57 99 40 09/11/17 22:00 80 09/11/17 20:00 99.2 100 19 151/72 (98) 100 09/11/17 20:00 98 09/11/17 20:00 40 09/11/17 19:35 91 156/83 09/11/17 18:00 103 09/11/17 16:00 99.6 96 16 143/76 (98) 100 09/11/17 16:00 95 09/11/17 16:00 100 139/77 09/11/17 16:00 40 I/O 09/11/17 09/11/17 09/11/17 09/12/17 09/12/17 09/12/17 07:00 15:00 23:00 07:00 15:00 23:00 Intake Total 1731 ml 100 ml 1062 ml 2347 ml Output Total 1250 ml 1700 ml 1550 ml Balance 481 ml 100 ml -638 ml 797 ml IV Total 1000 ml 100 ml 500 ml 1500 ml Tube Feeding 491 ml 562 ml 607 ml Other 240 ml 240 ml Output Urine Total 1250 ml 1700 ml 1550 ml # Bowel Movements 4 1 1 Imaging Last Impressions Head CT 09/10/17 0600 Signed Impressions: Service Date/Time: Sunday, September 10, 2017 04:17 - CONCLUSION: Stable evolving intracranial hemorrhage with no new acute findings. Nacho Krishnan MD Chest X-Ray 09/09/17 0900 Signed Impressions: Service Date/Time: Saturday, September 09, 2017 09:48 - CONCLUSION: 1. Bibasilar atelectasis. 2. Multiple tubes and lines are stable. Good Keller MD Abdomen X-Ray 09/01/17 0000 Signed Impressions: Service Date/Time: Friday, September 01, 2017 18:29 - CONCLUSION: Nasogastric tube coiled in the stomach with the tip projecting towards the GE junction. Migue Cuenca Jr., MD Maxillofacial CT 08/30/17 0000 Signed Impressions: Service Date/Time: August 15:13 - CONCLUSION: 1. There is a minimally depressed right nasal bone fracture with adjacent soft tissue swelling. No other fracture is visualized. 2. Please refer to head CT report for description of the right subdural hematoma. Nacho Buckley MD Lumbar Spine CT 08/30/17 0000 Signed Impressions: Service Date/Time: August 17:59 - CONCLUSION: Negative examination. Alec Latham MD Cervical Spine CT 08/30/17 0000 Signed Impressions: Service Date/Time: , August 30, 2017 15:12 - CONCLUSION: 1. No acute fracture or subluxation. Skinny Muñiz MD Laboratory Test 09/12/17 07:50 Potassium Level 3.3 MEQ/L Date/Time Source Procedure Growth Status 09/09/17 13:33 Blood Peripheral Aerobic Blood Culture - Preliminary NO GROWTH IN 3 DAYS Resulted 09/09/17 13:33 Blood Peripheral Anaerobic Blood Culture - Preliminary NO GROWTH IN 3 DAYS Resulted 09/09/17 10:50 Sputum Endotracheal Gram Stain - Final Complete 09/09/17 10:50 Sputum Endotracheal Sputum Culture - Final HEAVY GROWTH NORMAL RESPIRATORY ALFREDO Complete 09/09/17 09:42 Urine Catheterized Urine Urine Culture - Final Escherichia Coli Complete Physical Examination HEENT: normocephalic; atraumatic; no jaundice. intubated, OGT CHEST: coarse CARDIAC: RRR ABDOMEN: Soft, nondistended,; bowel sounds are present in all four quadrants. EXTREMITIES: No clubbing, cyanosis. generalized edema SKIN: Normal; no rash; no jaundice. MEDICAL ILLUSTRATOR: intubated. opens eyes. Assessment and Plan Plan ASSESSMENT - vent dependent, dysphagia - need for terminal block assembler ventilatory support. GI consulted for PEG placement. d/w son Oscar Alejandre, he is agreeable to proceed, explained risks and benefits. - anemia - gradual decline since admission - s/p crani, evacuation SDH per primary PLAN - EGD with PEG tube placement tomorrow - obtain consent - hold TF after midnight - on ceftriaxone - further recs to follow this pt seen by myself and Dr Thomas and this note is written on her behalf Vickie Reynoso Sep 12, 2017 15:51
[2017-09-12] MEDS: DOXEPIN HCL 10 MG CAP PO SCH (21:00)
[2017-09-13] VITALS (19 sets, daily range): BP systolic 134–143; BP diastolic 65–78; PULSE 66–77; RESP 11–21; TEMP 98.2–99.7; O2SAT 95–100
[2017-09-13] MEDS: CHLORHEXIDINE GLUCONATE 2 % 1 PACK (2 CLOTHS) TOP SCH (00:40)
[2017-09-13] MEDS: levETIRAcetam INJ 500 MG in SODIUM CHLORIDE 0.9% INJ 100 ML IV SCH ×3 (00:43→20:59)
[2017-09-13] MEDS: SODIUM CHLORIDE 0.9% FLUSH 10 ML FLUSH IV FLUSH SCH ×4 (00:43→20:25)
[2017-09-13] MEDS: VALPROIC ACID SYRUP 250 MG/5 ML UDC OG-TUBE SCH ×3 (00:44→20:24)
[2017-09-13] MEDS: ATORVASTATIN 40 MG TAB PO SCH ×2 (00:44→20:23)
[2017-09-13] MEDS: INSULIN DETEMIR 100 UNITS/ML VIAL SQ SCH ×3 (00:45→20:26)
[2017-09-13] MEDS: LISINOPRIL 20 MG TAB PO SCH ×3 (00:45→20:58)
[2017-09-13] MEDS: ISOSORBIDE DINITRATE 10 MG TAB PO SCH ×4 (00:46→21:00)
[2017-09-13] MEDS: ARTIFICIAL TEARS OPTH SOLN 15 ML BTL EACH EYE SCH ×4 (00:46→21:00)
[2017-09-13] MEDS: FAMOTIDINE 20 MG/2 ML VIAL IV PUSH SCH ×3 (00:47→23:06)
[2017-09-13] MEDS: METOPROLOL TARTRATE 100 MG TAB PO SCH ×5 (00:47→23:06)
[2017-09-13] MEDS: INSULIN NovoLIN REGULAR SUPPLEMENTAL SCALE SQ SCH ×5 (00:48→23:45)
[2017-09-13 01:45] LABS: INTERNATIONAL NORMALIZED RATIO 1.1 RATIO
[2017-09-13] MEDS: hydrALAZINE HCL 100 MG TAB PO SCH ×3 (03:43→17:19)
[2017-09-13] MEDS: niCARdipine INJ 50 MG in SODIUM CHLORID 0.9% 500 ML INJ 480 ML IV PRN (04:28)
[2017-09-13] MEDS: CHLORHEXIDINE 0.12% (ORAL KIT) 15 ML CUP MT SCH ×2 (08:00→20:23)
[2017-09-13] MEDS: DOCUSATE SODIUM 100 MG/10 ML UDC PO SCH ×2 (09:00→20:24)
[2017-09-13] MEDS: LACTULOSE SYRUP 20 GM/30 ML CUP PO SCH ×2 (09:00→20:24)
[2017-09-13] MEDS: SENNOSIDES SYRUP 8.8 MG/5 ML CUP PO SCH ×2 (09:00→20:24)
[2017-09-13] MEDS: POLYETHYLENE GLYCOL 17 GM PKG PO SCH ×2 (09:00→20:25)
[2017-09-13] MEDS: TOLTERODINE TARTRATE 2 MG TAB PO SCH (09:04)
[2017-09-13] MEDS: FUROSEMIDE 40 MG TAB PO SCH (09:04)
--- NOTE | 2017-09-13 09:04 | HHI.NSPN ---
(Carmen Chamberlain) Note Status Status: Progress Note (Carmen Chamberlain) Interval History Interval History This is a 57-year-old female who apparently is status post slip and fall around 6 AM this morning. She states she was on her way to [facility] she had some eggs when she slipped in the wet grass hitting her face on the concrete. No loss of consciousness. Not seizure activity noted. Not tongue biting. No incontinence of stool or urine. 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 Patient states that she' s been having a headache and right-sided facial pain since. She denies any chest pain, shortness of breath, change in vision, numbness or tingling anywhere , neck pain, back pain, loss or change in bowel or bladder, or being on any blood thinners. She is moving where both upper and lower extremities without any focal deficit. CT of the brain showed a right sided accurate subdural hematoma causing mass effect and midline shift. The subdural was hematoma 1.6 cm thick with a 3 mm right to left shift. Maxillofacial CT revealed a nondisplaced right nasal fracture. CT spine negative. Neurosurgical consultation was requested 09/01: Letahrgic today. Open eyes follows commands withn all [address] brain showed new frontal and post fossa bleed 09/02: remains intubated, off sedation she slightly opens eyes and moves all four extremities. EEG yesterday neg for seizures. 09/03: intubated, again off sedation reports to open her eyes and moves x 4, but not following commands 09/04: nursing reports minimal eye opening, moves x 4. intubated and sedated. 09/05: f/u CT Head completed, stable right temporal and cerebellar hemorrhage, no significant midline shift or mass effect. remains intubated and sedated. 09/06: remains intubated and well sedated for blood pressure control. 09/07: sedation lowered, eyes open, moving legs intermittently?to command. did not follow in the upper extremities. 09/10: on nicardipine drip. remains intubated on propofol drip. mildly opens eyes, withdraws to pain x 4 ext 09/11 intubated, CPAP trial. Remains on nicardipine drip. minimally open eyes , moves ext intermittently. 09/12: more awake today, tracking, giving thumbs up. remains intubated. 09/13: follows commands, awake, intubated. for PEG placement today. continues with CPAP trials. (Carmen Chamberlain) Labs, Micro, & Vital Signs Results Date Time Temp Pulse Resp B/P (MAP) Pulse Ox O2 Delivery O2 Flow Rate FiO2 09/13/17 08:16 40 09/13/17 08:13 100 40 09/13/17 08:00 40 09/13/17 08:00 68 09/13/17 08:00 99.7 69 21 134/65 (88) 96 09/13/17 06:00 66 09/13/17 04:36 97 40 09/13/17 04:28 84 128/65 09/13/17 04:00 99.0 76 16 134/72 (92) 98 09/13/17 04:00 76 09/13/17 04:00 40 09/13/17 02:00 70 09/13/17 00:40 97 Ventilator 09/13/17 00:31 97 40 09/13/17 00:00 40 09/13/17 00:00 98.8 72 16 138/72 (94) 97 09/13/17 00:00 77 09/12/17 22:00 90 09/12/17 20:33 100 40 09/12/17 20:00 99.0 86 16 136/73 (94) 98 09/12/17 20:00 82 09/12/17 20:00 40 09/12/17 16:00 99.2 91 23 122/57 (78) 100 09/12/17 16:00 40 09/12/17 15:03 82 192/58 09/12/17 14:06 97 40 09/12/17 12:38 100 40 09/12/17 12:30 40 09/12/17 12:13 97 40 09/12/17 12:00 40 09/12/17 12:00 99.2 91 10 154/82 (106) 99 09/12/17 10:52 94 145/73 09/12/17 09:44 40 09/12/17 09:39 100 40 09/12/17 09:39 40 09/12/17 09:26 99 40 Constitutional Vital Signs Date Time Temp Pulse Resp B/P (MAP) Pulse Ox O2 Delivery O2 Flow Rate FiO2 09/13/17 08:16 40 09/13/17 08:13 100 40 09/13/17 08:00 40 09/13/17 08:00 68 09/13/17 08:00 99.7 69 21 134/65 (88) 96 09/13/17 06:00 66 09/13/17 04:36 97 40 09/13/17 04:28 84 128/65 09/13/17 04:00 99.0 76 16 134/72 (92) 98 09/13/17 04:00 76 09/13/17 04:00 40 09/13/17 02:00 70 09/13/17 00:40 97 Ventilator 09/13/17 00:31 97 40 09/13/17 00:00 40 09/13/17 00:00 98.8 72 16 138/72 (94) 97 09/13/17 00:00 77 09/12/17 22:00 90 09/12/17 20:33 100 40 09/12/17 20:00 99.0 86 16 136/73 (94) 98 09/12/17 20:00 82 09/12/17 20:00 40 09/12/17 16:00 99.2 91 23 122/57 (78) 100 09/12/17 16:00 40 09/12/17 15:03 82 192/58 09/12/17 14:06 97 40 09/12/17 12:38 100 40 09/12/17 12:30 40 09/12/17 12:13 97 40 09/12/17 12:00 40 09/12/17 12:00 99.2 91 10 154/82 (106) 99 09/12/17 10:52 94 145/73 09/12/17 09:44 40 09/12/17 09:39 100 40 09/12/17 09:39 40 09/12/17 09:26 99 40 (Carmen Chamberlain) Review of Systems ROS Limitations: Intubated (Carmen Chamberlain) Physical Exam Ms. Haider remains intubated, off sedation. Drowsy but awake, eye open and tracking following few simple command, giving thumbs up to commands. Cranial Nerves: Pupils 3-4 mm round, reactive to light. gross EOMs when tracking Surgical wound is healing well, clean and dry. Motor:moves both upper and lower extremities grossly to command Mild bilateral Babinski response. No ankle clonus. Neck: soft, supple (Carmen Chamberlain) Medications Current Medications Current Medications Medications (Trade) Dose Ordered Sig/Christopher Route PRN Reason Start Time Stop Time Status Last Admin Dose Admin Sodium Chloride (NS Flush) 2 ml UNSCH PRN IV FLUSH FLUSH AFTER USING IV ACCESS 08/30/17 16:15 Sodium Chloride (NS Flush) 2 ml BID IV FLUSH 08/30/17 21:00 09/13/17 00:43 Ondansetron HCl (Zofran Inj) 4 mg Q6H PRN IV PUSH NAUSEA OR VOMITING 08/30/17 16:15 Albuterol Sulfate (Albuterol Neb) 2.5 mg Q2HR NEB PRN INH SOB/WHEEZING 08/30/17 16:15 09/11/17 00:48 Miscellaneous Information 1 Q361D XX 08/30/17 16:15 Chlorhexidine Gluconate (Chlorhexidine 2% Cloth) Taper DAILY@04 TOP 08/31/17 04:00 08/27/18 03:59 09/08/17 04:00 Chlorhexidine Gluconate (Chlorhexidine 2% Cloth) 3 pack UNSCH PRN TOP HYGIENIC CARE 08/30/17 16:15 Magnesium Hydroxide (Milk Of Magnesia Liq) 30 ml Q12H PRN PO Mild constipation 08/30/17 16:15 Sennosides (Senokot) 17.2 mg Q12H PRN PO Moderate constipation 08/30/17 16:15 Bisacodyl (Dulcolax Supp) 10 mg DAILY PRN RECTAL SEVERE CONSITIPATION 08/30/17 16:15 Atorvastatin Calcium (Lipitor) 40 mg HS PO 08/30/17 21:00 09/13/17 00:44 Doxepin HCl (SINEquan) 10 mg HS PO 08/30/17 21:00 09/11/17 20:42 Furosemide (Lasix) 40 mg DAILY PO 08/31/17 09:00 09/12/17 08:35 Levetriacetam 500 mg/Sodium Chloride 105 ml @ 420 mls/hr Q12HR IV 08/30/17 21:00 09/13/17 00:43 Dextrose (D50w (Vial) Inj) 50 ml UNSCH PRN IV PUSH HYPOGLYCEMIA-SEE COMMENTS 08/30/17 16:15 Glucagon (Glucagon Inj) 1 mg UNSCH PRN OTHER HYPOGLYCEMIA-SEE COMMENTS 08/30/17 16:15 Labetalol HCl (Trandate Inj) 10 mg Q1HR PRN IV PUSH SBP>140, DBP>90, HR>65 08/30/17 16:15 09/12/17 05:15 Hydralazine HCl (Apresoline Inj) 10 mg Q1HR PRN IV PUSH SBP>150, DBP>90 08/30/17 16:15 09/12/17 03:54 Nitroglycerin (Nitroglycerin 2% Oint) 2 inch Q6H PRN TOPICAL SBP>150, DBP>90 08/30/17 16:15 09/10/17 03:07 Calcium Gluconate (Calcium Gluconate Inj) 1 gm UNSCH PRN IV SEE LABEL COMMENTS 08/31/17 13:30 Acetaminophen/ Hydrocodone Bitart ([place] 10-325 Mg) 1 tab Q4H PRN PO PAIN SCALE 1 TO 5 08/31/17 13:30 Future Hold Acetaminophen/ Hydrocodone Bitart ([place] 10-325 Mg) 2 tab Q4H PRN PO PAIN SCALE 6 TO 10 08/31/17 13:30 Future Hold Morphine Sulfate (Morphine Inj) 2 mg Q2H PRN IV PUSH PAIN SCALE 1 TO 6 08/31/17 13:30 09/01/17 06:15 Morphine Sulfate (Morphine Inj) 4 mg Q2H PRN IV PUSH PAIN SCALE 7 TO 10 08/31/17 13:30 Cholecalciferol (Vitamin D3) 1,000 units DAILY PO 09/01/17 09:00 09/12/17 08:34 Patient Own Medication PT OWN MED: LINAGLIP... DAILY PO 09/01/17 09:00 Future Hold Chlorhexidine Gluconate (Peridex 0.12% Liq) 15 ml BID@08,20 MT 09/01/17 20:00 09/13/17 08:00 Sodium Chloride (NS Flush) DAILY IV FLUSH 09/01/17:30 09/08/17 08:54 Sodium Chloride (NS Flush) UNSCH PRN IV FLUSH SEE PROTOCOL 09/01/17 10:30 Artificial Tears (Tears Naturale Opth Soln) 1 drop Q8HR EACH EYE 09/01/17 14:00 09/13/17 06:45 Famotidine (Pepcid Inj) 20 mg Q12H IV PUSH 09/01/17 11:00 09/13/17 00:47 Isosorbide Dinitrate (Isordil) 10 mg Q8HR PO 09/01/17 14:00 09/13/17 06:45 Potassium Chloride 100 ml @ 50 mls/hr Q2H PRN IV For Potassium 2.8 - 3.2 mEq/L 09/02/17 06:30 09/11/17 07:16 Potassium Chloride 100 ml @ 50 mls/hr Q2H PRN IV For Potassium 2.8 - 3.2 mEq/L 09/02/17 06:30 Potassium Bicarb/ Potassium Chloride (K-Lyte Cl Eff) 50 meq UNSCH PRN PO For Potassium 3.3 - 3.5 mEq/L 09/02/17 06:30 Potassium Chloride 100 ml @ 25 mls/hr UNSCH PRN IV For Potassium 3.3 - 3.5 mEq/L 09/02/17 06:30 09/12/17 10:52 Potassium Chloride 100 ml @ 50 mls/hr Q2H PRN IV For Potassium 3.3 - 3.5 mEq/L 09/02/17 06:30 Magnesium Sulfate 4 gm/Sodium Chloride 100 ml @ 50 mls/hr UNSCH PRN IV For Magnesium 0.9 - 1.1 mg/dL 09/02/17 06:30 Magnesium Oxide (Mag-Ox) 800 mg UNSCH PRN PO For Magnesium 1.2 - 1.6 mg/dL 09/02/17 06:30 Magnesium Sulfate 2 gm/Sodium Chloride 100 ml @ 50 mls/hr UNSCH PRN IV For Magnesium 1.2 - 1.6 mg/dL 09/02/17 06:30 Potassium Phosphate (K-Phos) 2,000 mg Q4H PRN PO For Phosphorus < 2.5 mg/dL 09/02/17 06:30 Sodium Phosphate 30 mmol/Sodium Chloride 250 ml @ 42 mls/hr UNSCH PRN IV For Phosphorus < 2.5 mg/dL 09/02/17 06:30 Potassium Phosphate (K-Phos) 2,000 mg UNSCH PRN PO/TUBE SEE LABEL COMMENTS 09/02/17 06:30 Potassium Phosphate 30 mmol/ Sodium Chloride 260 ml @ 42 mls/hr UNSCH PRN IV SEE LABEL COMMENTS 09/02/17 06:30 09/02/17 08:28 Docusate Sodium (Colace Liq) 100 mg Q12HR PO 09/02/17 09:00 09/12/17 08:34 Sennosides (Senna Liq) 8.8 mg BID PO 09/02/17 09:00 09/12/17 08:36 Polyethylene Glycol (Miralax) 17 gm BID PO 09/02/17 09:00 09/10/17 20:32 Acetaminophen (Tylenol 650 Mg/ 20 ml Liq) 650 mg Q6H PRN PO temp greater than 101 09/02/17 07:15 09/08/17 12:26 Lactulose (Lactulose Liq) 30 ml BID PO 09/03/17 08:00 09/12/17 08:33 Insulin Human Regular (NovoLIN R SUPPLEMENTAL SCALE) 1 Q6HR SQ 09/03/17 12:00 09/13/17 00:48 Valproic Acid (Depakene Liq) 250 mg BID OG-TUBE 09/04/17 11:00 09/13/17 00:44 Insulin Detemir (Levemir Inj) 15 units Q12HR SQ 09/06/17 09:00 09/13/17 00:45 Amlodipine Besylate (Norvasc) 10 mg DAILY OG-TUBE 09/07/17 02:00 09/12/17 08:33 Miscellaneous (Pill Splitter) 1 ea UNSCH PRN OTHER SEE LABEL COMMENTS 09/07/17 02:00 Nicardipine HCl 50 mg/Sodium Chloride 500 ml @ 50 mls/hr TITRATE PRN IV Blood pressure management 09/07/17 20:45 09/13/17 04:28 Lisinopril (Prinivil) 20 mg BID PO 09/08/17 21:00 09/13/17 00:45 Hydralazine HCl (Apresoline) 100 mg Q8H PO 09/08/17 10:00 09/13/17 03:43 Tolterodine Tartrate (Detrol) 2 mg DAILY PO 09/10/17 12:00 09/12/17 08:35 Clonidine (Catapres-Tts 0.3 Mg Patch.7d) 1 patch Q7D T-DERMAL 09/11/17 11:00 09/11/17 11:48 Ceftriaxone Sodium 1000 mg/ Sodium Chloride 100 ml @ 200 mls/hr Q24H IV 09/11/17 10:00 09/12/17 09:03 Metoprolol Tartrate (Lopressor) 100 mg Q6HR PO 09/12/17 12:30 09/13/17 06:46 (Carmen Chamberlain) Medical Decision Making MDM Remarks 57 y/o female TBI following slip and fall on wet grass, she hit her face on concrete sidewalk, CT Brain on arrival with right subdural hematoma, diffuse SAH she underwent right side craniotomy for evacuation of subdural hematoma on 08/31 respiratory failure, reintubated 09/01/17 f/u CT Head 09/02 with improvement of right subdural hematoma, stable right temporal/parietal intraparenchymal hematoma, small right cerebellar contusion, and diffuse SAH, no new ICH f/u CT Head 09/05 stable to improving right temporal/parietal and cerebellar ICH EEG 09/01 neg for seizure neuro exam improving (Carmen Chamberlain) Plan Plan Remarks cont CPAP trials, vent weaning as tolerated ok for trach from NRS standpoint dc scalp sidney tomorrow will sign off, call prn (Carmen Chamberlain) Attending Statement The exam, history, and the medical decision-making described in the above note were completed with the assistance of the mid-level provider. I reviewed and agree with the findings presented. I attest that I had a [id number] encounter with the patient on the same day, and personally performed and documented my assessment and findings in the medical record. (Yannick Aiken MD) Carmen Chamberlain Sep 13, 2017 09:04 Yannick Aiken MD Sep 14, 2017 21:40
[2017-09-13] MEDS: CHOLECALCIFEROL (VIT D3) 1000 UNIT TAB PO SCH (09:05)
[2017-09-13] MEDS: cefTRIAXone INJ 1,000 MG in SODIUM CHLORIDE 0.9% INJ 100 ML IV SCH (10:00)
[2017-09-13 10:03] LABS: AUTOMATED NEUTROPHIL # 9.1 TH/MM3 (1.8-7.7); BASOPHIL # 0.1 TH/MM3 (0-0.2); BASOPHIL % 0.4 % (0.0-2.0); EOSINOPHIL # 0.1 TH/MM3 (0-0.4); EOSINOPHIL % 0.5 % (0.0-4.0); HEMATOCRIT 22.2 % (35.0-46.0); HEMO FLAGS DIFF FINAL; LYMPH % 16.9 % (9.0-44.0); MEAN CELL VOLUME 83.3 FL (80.0-100.0); MEAN CORPUSCULAR HEMOGLOBIN 26.6 PG (27.0-34.0); MONO % 7.1 % (0.0-8.0); NEUT % 75.1 % (16.0-70.0); PLATELET COUNT 414 TH/MM3 (150-450); RED BLOOD COUNT 2.67 MIL/MM3 (4.00-5.30); RED CELL DISTRIBUTION WIDTH 14.6 % (11.6-17.2); WHITE BLOOD COUNT 12.1 TH/MM3 (4.0-11.0)
[2017-09-13 10:36] LABS: ANION GAP 9 MEQ/L (5-15); BICARBONATE 25.5 MEQ/L (21.0-32.0); BLOOD UREA NITROGEN 11 MG/DL (7-18); CHLORIDE 109 MEQ/L (98-107); GLOMERULAR FILTRATION RATE 169 ML/MIN (>89); POTASSIUM 3.5 MEQ/L (3.5-5.1); SODIUM (NA) 143 MEQ/L (136-145)
[2017-09-13 10:55] LABS: ALKALINE PHOSPHATASE 97 U/L (45-117); ALT (GPT) 46 U/L (10-53); AST (GOT) 34 U/L (15-37); TOTAL BILIRUBIN ADULT 0.3 MG/DL (0.2-1.0)
[2017-09-13] MEDS ORDERED: DEXAMETHASONE SOD PHOS 4 MG/ML VIAL IV ONE (12:00)
[2017-09-13] MEDS ORDERED: STERILE WATER FOR INJECTION 20 ML VIAL IV ONE (12:00)
[2017-09-13] MEDS ORDERED: LIDOCAINE HCL 1% PF 5 ML AMPULE OTHER ONE (12:00)
[2017-09-13] MEDS ORDERED: PROPOFOL 200 MG/20 ML AMP IV ONE (12:00)
[2017-09-13] MEDS ORDERED: ROCURONIUM INJ 50 MG/5 ML SYRINGE IV PUSH ONE (12:00)
[2017-09-13] MEDS ORDERED: LABETALOL HCL 100 MG/20 ML VIAL IV ONE (12:00)
[2017-09-13] MEDS ORDERED: MORPHINE SULFATE 4 MG/ML INJ IV ONE (12:00)
[2017-09-13] MEDS ORDERED: MIDAZOLAM HCL 2 MG/2 ML VIAL IV ONE (12:00)
[2017-09-13] MEDS ORDERED: ONDANSETRON HCL 4 MG/2 ML VIAL IV PUSH ONE (12:00)
[2017-09-13] MEDS ORDERED: VECURONIUM BROMIDE 20 MG VIAL IV ONE (12:00)
[2017-09-13] MEDS ORDERED: ePHEDrine/NS 25 MG/5 ML SYR IV ONE (12:00)
[2017-09-13] MEDS: POTASSIUM CHLOR 40 MEQ PREMIX 100 ML IV PRN (12:03)
--- NOTE | 2017-09-13 13:09 | HHI.CCPN ---
Subjective Remarks/Hospital Course 57-year-old AA female . Date of admission 08/30/2017. Past medical history includes schizoaffective/bipolar, depression, seizure disorder, hypertension, dyslipidemia, diabetes and allergic rhinitis. She is not on any blood thinners or aspirin. This patient was walking from [employer] in approximately 6 AM this morning when she suffered a fall and landed on the right side of her face.. She states she slipped in the wet grass hitting her face on the concrete. No loss of consciousness. Not seizure activity noted. Not tongue biting. No incontinence of stool or urine. 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 Patient states that she's been having a headache and right-sided facial pain since. 08/30 CT of the brain showed a right frontotemporal subdural hematoma 1.6 cm with a 3 mm right to left shift. Maxillofacial CT revealed a nondisplaced right nasal fracture. CT spine negative. CBC showed normocytic anemia. BMP is pending. Elevated PTT coags at 33. Patient was loaded with 500 mg levetiracetam, given as needed for elevated blood pressure stabilized in the ED. Neurosurgical consultation was requested with Dr. Aiken. 08/31: Afebrile. CT brain revealed increased diameter right-sided subdural hematoma up to 1.9 cm. Shift is 1 mm right to left. Positive headache. No seizure activity. No real focal neurological deficits. 09/01: Patient subjective a weak left upper and lower extremity greater than right. Mumbling words. Stat CT brain revealed 2.6 cm image right intraparenchymal hemorrhage on the right temporal parietal region, 0.9 cm right cerebellar hemorrhage and bilateral subarachnoid hemorrhage convex's. Notified Dr. Aiken. Patient was intubated for airway protection and central line placed for hypertonic saline 09/02: Tmax 99.9. Improved subarachnoid hemorrhage. Stable right intraparenchymal hemorrhages. Potassium and phosphorus been replaced. No bowel movement. Subjective 09/03: Currently afebrile. Remains on propofol and fentanyl drips for sedation. Tolerating tube feeds at goal. Arousable with open eyes but not following commands currently. 09/04: Remains sedated, orally intubated on mechanical ventilation. Tolerating tube feeds. 09/05: Remains sedated, orally intubated on mechanical ventilation. Tolerating tube feeds. 09/06: Breathes over vent despite sedation. Withdraws limbs. 09/07: Remains sedated, orally intubated on mechanical ventilation. Tolerating tube feeds. 09/08: Will work toward extubation when OK with Neurosurgery. 09/09: Remains sedated, orally intubated on mechanical ventilation. Tolerating tube feeds. 09/10: Remains sedated, orally intubated on mechanical ventilation. Tolerating tube feeds. 09/11: Remains drowsy, orally intubated on mechanical ventilation. Tolerating tube feeds. Daily C Pap trials ongoing. Remains on nicardipine drip. 09/12: Remains drowsy, encephalopathic, orally intubated on mechanical ventilation. Tolerating tube feeds. Daily C Pap trials ongoing. Remains on nicardipine drip. 09/13: Drowsy, arousable, orally intubated on mechanical ventilation. Tolerating C Pap trial. Awaiting PEG tube today Objective Vital Signs Date Time Temp Pulse Resp B/P (MAP) Pulse Ox O2 Delivery O2 Flow Rate FiO2 09/13/17 12:00 40 09/13/17 12:00 73 09/13/17 12:00 99.0 11 134/65 (88) 99 09/13/17 00:40 Ventilator Intake and Output 09/13/17 09/13/17 09/14/17 08:00 16:00 00:00 Intake Total 350 ml Output Total 2001 ml Balance -1651 ml Result Diagram: 09/13/17 0935 09/13/17 0935 Imaging Last Impressions Chest X-Ray 09/03/17 06 Signed Impressions: Service Date/Time: Sunday, September 03, 2017 04:42 - CONCLUSION: 1. Bibasilar atelectasis, slightly improved in the right lower lobe but slightly worsened left lower lobe. Fantasma Miller MD Head CT 09/02/17 0600 Signed Impressions: Service Date/Time: Saturday, September 02, 2017 04:41 - CONCLUSION: 1. Mild interval improvement in subarachnoid hemorrhage over the parietal convexities. 2. Stable intraparenchymal hemorrhage in the right parietal lobe and right cerebellar hemisphere. 3. The subdural drainage catheter remains in place with no residual subdural hematoma. 4. No new hemorrhage or mass effect. Tyree Wise MD Abdomen X-Ray 09/01/17 0000 Signed Impressions: Service Date/Time: Friday, September 01, 2017 18:29 - CONCLUSION: Nasogastric tube coiled in the stomach with the tip projecting towards the GE junction. Migue Cuenca Jr., MD Maxillofacial CT 08/30/17 0000 Signed Impressions: Service Date/Time: August 15:13 - CONCLUSION: 1. There is a minimally depressed right nasal bone fracture with adjacent soft tissue swelling. No other fracture is visualized. 2. Please refer to head CT report for description of the right subdural hematoma. Nacho Buckley MD Lumbar Spine CT 08/30/17 0000 Signed Impressions: Service Date/Time: August 17:59 - CONCLUSION: Negative examination. Alec Latham MD Cervical Spine CT 08/30/17 0000 Signed Impressions: Service Date/Time: August 15:12 - CONCLUSION: 1. No acute fracture or subluxation. Skinny Muñiz MD Objective Remarks GENERAL: 57-year-old AA female, resting in bed orotracheally intubated SKIN: Warm and dry. Abrasions to the right cheek and chin with evolving ecchymoses HEAD: Status post right craniotomy with subdural, scalp drain in place EYES: Pupils equal and round about 3 mm bilaterally and reactive. Right eyelid swollen, protuberant globe. No scleral icterus. No injection or drainage. ENT: No nasal bleeding or discharge. Mucous membranes pink and moist. NECK: Trachea midline. Orally intubated. CARDIOVASCULAR: Tachycardia, RR. S1, S2. No S4. Without murmur. No JVD. RESPIRATORY: Clear to auscultation. Breath sounds equal bilaterally. Nio adventitious sounds. GASTROINTESTINAL: Abdomen soft, non-tender, nondistended. Bowel sounds are sluggish but appreciated MUSCULOSKELETAL: Extremities without significant peripheral edema. No obvious deformities. Well perfused. NEUROLOGICAL: Drowsy/encephalopathic, orally intubated, arouses on command, Withdraws to pain bilateral upper and lower extremities. Not following commands Date of Insertion: Sep 01, 2017 Line: Central Venous Catheter Side: Left Location: Internal, Jugular A/P Assessment and Plan Neuro/Psych: s/p right craniotomy with evacuation of subdural hematoma 2.6 cm right parietal/temporal intracranial hemorrhage, 0.9 cm right subdural hemorrhage and bilateral subarachnoid hemorrhage Right subdural hematoma - 1.6 cm fronto temporal with a 3 mm right to left shift Right closed nondisplaced nasal fracture Schizoaffective disorder Bipolar disorder Depression Seizure disorder NOS Off propofol and fentanyl drips for more than 24 hours. Remains drowsy, arousable CT brain 08/30 revealed a right frontal temporal subdural hematoma 1.6 cm thickness with a 3 mm right to left shift. Nondisplaced right nasal bone fracture. CT brain 08/31 revealed 2.6 cm right parietal intracranial hemorrhage, 0.9 cm right subdural hemorrhage and bilateral subarachnoid hemorrhage CT brain 09/01 revealed stable intraparenchymal hemorrhage improving subarachnoid hemorrhage at the convex CT Head 09/05 with stable areas of ICH/ SAH. EEG 08/31 revealed generalized slowing/encephalopathy. Disruption right side secondary to intraparenchymal hemorrhage. Levetiracetam 500 mg IV twice a day for seizure prophylaxis 7 days Resumed home dose of valproic acid 250mg BID via OGT. Goal keep systolic blood pressure less than 140. Neurochecks Head of bed at 30 Stopped hypertonic saline 09/05 per neurosurgery. Evaluated by Dr. Aiken/neurosurgery Continue doxepin 10 mg by mouth daily Holding loratadine 10 mg by mouth daily CV: Hypertension Dyslipidemia Increase metoprolol 100 mg via OGT Q6hrly for hypertension on 09/12. Prinivil 20mg BID. Continue isosorbide mononitrate 30 mg by mouth daily but switch to isosorbide dinitrate 10 mg 3 times a day As needed labetalol, hydralazine, Nitropaste and nicardipine drip to keep systolic blood pressure less than 140. Added Norvasc 10 mg via OG tube daily on 09/07. Added Catapres patch 0.3 mg per day on 09/11 titrate off nicardipine drip as tolerated Continue atorvastatin 40 mg by mouth daily for dyslipidemia Resp: PRVC 16/500/11/16/39 Ventilator bundle Albuterol/after aerosols every 6 hours with albuterol aerosols every 2 hours prn dyspnea Spontaneous breathing trials daily Chest x-ray revealed bilateral lower lobe atelectasis left greater than right. GI: Continue tube feeding with vital 1.5 goal 50 cc an hour-held for PEG tube placement on 09/13 Famotidine for GI prophylaxis Docusate sodium/senna and polyethylene glycol twice a day for bowel regimen. Add lactulose and mineral oil 1 today and a one-time dose of 12 mg subcutaneous methylnaltrexone : Incontinence Porter catheter if indicated for accurate I's and O's in a critically ill patient Holding Tolterodine 2 mg by mouth daily. Resume when clinically indicated Endo: Diabetes History of hypothyroidism/thyroid nodules Holding metformin 1000 mg daily and Linagliptin 5 mg daily for diabetes. Sliding-scale insulin with Accu-Cheks to maintain euglycemia detemir 15 units twice a day Renal: History of renal cell carcinoma status post right nephrectomy KVO IVF 09/05 Monitor urine output Accurate I's and O's Follow-up ER BMP not completed Heme: Normocytic anemia Elevated PTT Thrombocytopenia Monitor CBC daily. Follow trends Does not meet transfusion thresholds at this time ID: Patient noted to have fevers and left shift with bands noted on peripheral smear. Obtained allen cultures and initiated empiric antibiotic coverage with IV Zosyn 09/09, discontinued on 09/11 as urine culture growing Escherichia coli sensitive to Rocephin. De-escalated to Rocephin 1 g IV daily starting 09/11. FEN: Hypophosphatemia Hypokalemia Replace electrolytes as clinically indicated per ICU electrolyte protocol. Holding cholecalciferol 1000 U daily. Resume when clinically indicated MSK: Osteoarthritis Physical therapy evaluate and treat Access -Left IJ CVL Prophylaxis - GI famotidine - DVT- SCD/holding pharmacological prophylaxis in light of subdural hematoma Patient remains critical with SDH, cerebral edema status post craniotomy Overall impression: Remains critically ill after evacuation of SDH. Unable to wean ventilator. To encephalopathic to protect airway currently. Need more aggressibe BP control. GI to place PEG tube. Tolerating C Pap trial, may attempt extubation tomorrow, patient may need tracheostomy. Skyler Taylor MD Sep 13, 2017 13:08
--- NOTE | 2017-09-13 13:54 | RADRPT ---
EXAM DATE/TIME: 09/13/2017 13:13 [facility] COMPARISON: CHEST SINGLE AP, September 09, 2017, 9:48. INDICATIONS : Evaluate respiratory failure. MEDICAL HISTORY : Cardiovascular disease. Hypertension. Diabetes mellitus type 2.Renal cell CA. SURGICAL HISTORY : Nephrectomy, right ENCOUNTER: Subsequent ACUITY: 2 weeks PAIN SCORE: Non-responsive. LOCATION: Bilateral chest FINDINGS: Stable ETT at the level of the clavicles. Stable left IJ central line with tip at the junction of the brachiocephalic and SVC. Interval platelike air space consolidation in the right lower lung zone. Mi nimal left lower lung zone airspace disease. Cardiomediastinal contours are stable. Remainder of the exam is unchanged. CONCLUSION: 1. Stable tubes and lines, as above. 2. Interval right lower lung zone plate like airspace consolidation consistent with atelectasis poten tially secondary to mucous plugging, although aspiration or infection cannot be excluded. 3. Stable minimal left lower lung zone airspace disease, likely atelectasis. Skinny Muñiz MD on September 13, 2017 at 13:50 Board Certified Radiologist. This report was verified electronically.
--- NOTE | 2017-09-13 15:13 | GIPROC ---
[facility] [address] [facility]. [facility], [address] EGD WITH PEG PROCEDURE REPORT EXAM DATE: 09/13/2017 PATIENT NAME: Eboni Haider MR#: [id number] BIRTHDATE: 1960 ATTENDING: Bandar Gilliam MD ORDER #: [id number] [employer] TEAM: Socrates Day and Rosalind Covington STATUS: inpatient INDICATIONS: The patient is a 57 yr old female here for an EGD with PEG due to placement of drainage tube and placement of PEG PROCEDURE PERFORMED: EGD with PEG placement MEDICATIONS: None and Per Anesthesia. TOPICAL ANESTHETIC: none CONSENT: The patient understands the risks and benefits of the procedure and understands that these risks include, but are not limited to: sedation, allergic reaction, infection, perforation and/or bleeding. Alternative means of evaluation and treatment include, among others: physical exam, x-rays, and/or surgical intervention. The patient elects to proceed with this endoscopic procedure. medical equipment was checked for proper function. Hand hygiene and appropriate measures for infection prevention was taken. After the risks, benefits and alternatives of the procedure were thoroughly explained, Informed consent was verified, confirmed and timeout was successfully executed by the treatment team. The patient was anesthetized with topical anesthesia and the Pentax [id number] endoscope was introduced through the mouth and advanced to the second portion of the duodenum. The instrument was slowly withdrawn as the mucosa was fully examined. The upper, middle, and distal third of the esophagus were carefully inspected and no abnormalities were noted. The z-line was well seen at the GEJ. The endoscope was pushed into the fundus which was normal including a retroflexed view. The antrum, first and second part of the duodenum were unremarkable. The stomach was then inflated with air, and by a combination of transillumination and manual palpation, the site for the gastrostomy tube placement was selected and marked on the anterior abdominal wall. The skin of the anterior abdomen was surgically prepped and draped with sterile towels. Utilizing strict sterile technique, the selected site was then anesthetized with 1% xylocaine by injection into the skin and subcutaneous tissue. A 1 cm incision was made through the skin and subcutaneous tissue, and the needle/cannula assembly was then passed through the abdominal wall and through the anterior wall of the stomach, maintaining visualization with the endoscope. A snare device previously placed through the instrument channel was then opened and placed around the cannula, the needle was removed, and the insertion wire was passed through the cannula and into the stomach lumen. The snare was then loosened from the cannula, and repositioned to snare the insertion wire. The snare was then pulled up to the endoscope distal tip, and the scope was then withdrawn bringing with it the snare and insertion wire. The insertion wire was then released from the snare, and then loop-attached to the Bard 20 Fr gastrostomy tube. Using the "pull technique", the G-tube was then pulled into place by traction on the insertion wire at the abdominal wall end. The G-tube insertion site was then cleansed once again, and the external bolster was placed over the tube to secure it to the abdominal wall. A sterile dressing was then applied, and the procedure terminated. no abnormalities The gastroscope was then slowly withdrawn and removed. ADVERSE EVENT: There were no complications. IMPRESSIONS: 1. The upper, middle, and distal third of the esophagus were carefully inspected and no abnormalities were noted. The z-line was well seen at the GEJ. The endoscope was pushed into the fundus which was normal including a retroflexed view. The antrum, first and second part of the duodenum were unremarkable. 2. 20 F PEG tube placed successfully. RECOMMENDATIONS: PEG recomendations: 1- NPO for 6 hours except for meds 2- Flush PEG tube every 6 hours with water and after each PEG feeding 3- May resume regular diet in the morning 4- May use Ensure or Boost etc. for PEG tube feeding REPEAT EXAM: procedure as needed Bandar Gilliam MD eSigned: Bandar Gilliam MD 09/13/2017 3:13 PM cc: PATIENT NAME: Eboni Haider MR#: [id number]
[2017-09-13] MEDS: MORPHINE SULFATE 4 MG/ML INJ IV PUSH PRN ×2 (17:50→17:52)
[2017-09-13] MEDS: DOXEPIN HCL 10 MG CAP PO SCH (21:01)
[2017-09-14] VITALS (17 sets, daily range): BP systolic 130–146; BP diastolic 65–79; PULSE 67–109; RESP 16–22; TEMP 98.1–100.1; O2SAT 96–100
[2017-09-14] MEDS: hydrALAZINE HCL 100 MG TAB PO SCH ×3 (01:23→17:28)
[2017-09-14] MEDS: hydrALAZINE HCL 20 MG/ML VIAL IV PUSH PRN (03:24)
[2017-09-14] MEDS: CHLORHEXIDINE GLUCONATE 2 % 1 PACK (2 CLOTHS) TOP SCH ×2 (03:51→19:49)
[2017-09-14] MEDS: METOPROLOL TARTRATE 100 MG TAB PO SCH ×3 (05:16→17:28)
[2017-09-14] MEDS: ISOSORBIDE DINITRATE 10 MG TAB PO SCH ×3 (05:16→22:53)
[2017-09-14] MEDS: ARTIFICIAL TEARS OPTH SOLN 15 ML BTL EACH EYE SCH ×3 (05:17→22:00)
[2017-09-14 05:40] LABS: AUTOMATED NEUTROPHIL # 9.8 TH/MM3 (1.8-7.7); BASOPHIL # 0.1 TH/MM3 (0-0.2); BASOPHIL % 0.5 % (0.0-2.0); EOSINOPHIL % 0.3 % (0.0-4.0); HEMO FLAGS DIFF FINAL; LYMPH % 15.7 % (9.0-44.0); MEAN CELL VOLUME 82.9 FL (80.0-100.0); MEAN CORPUSCULAR HGB CONC 32.6 % (32.0-36.0); MONO % 5.5 % (0.0-8.0); PLATELET COUNT 455 TH/MM3 (150-450); RED CELL DISTRIBUTION WIDTH 14.9 % (11.6-17.2); WHITE BLOOD COUNT 12.6 TH/MM3 (4.0-11.0)
[2017-09-14] MEDS: INSULIN NovoLIN REGULAR SUPPLEMENTAL SCALE SQ SCH ×3 (06:00→17:44)
[2017-09-14 06:03] LABS: ALT (GPT) 51 U/L (10-53); ANION GAP 11 MEQ/L (5-15); AST (GOT) 37 U/L (15-37); BICARBONATE 22.3 MEQ/L (21.0-32.0); BLOOD UREA NITROGEN 13 MG/DL (7-18); CHLORIDE 106 MEQ/L (98-107); GLOMERULAR FILTRATION RATE 157 ML/MIN (>89); POTASSIUM 3.7 MEQ/L (3.5-5.1); SODIUM (NA) 139 MEQ/L (136-145)
[2017-09-14 06:05] LABS: ALKALINE PHOSPHATASE 118 U/L (45-117); TOTAL BILIRUBIN ADULT 0.4 MG/DL (0.2-1.0)
--- NOTE | 2017-09-14 07:59 | HHI.CCPN ---
Subjective Remarks/Hospital Course 57-year-old AA female . Date of admission 08/30/2017. Past medical history includes schizoaffective/bipolar, depression, seizure disorder, hypertension, dyslipidemia, diabetes and allergic rhinitis. She is not on any blood thinners or aspirin. This patient was walking from [employer] in approximately 6 AM this morning when she suffered a fall and landed on the right side of her face.. She states she slipped in the wet grass hitting her face on the concrete. No loss of consciousness. Not seizure activity noted. Not tongue biting. No incontinence of stool or urine. 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 Patient states that she's been having a headache and right-sided facial pain since. 08/30 CT of the brain showed a right frontotemporal subdural hematoma 1.6 cm with a 3 mm right to left shift. Maxillofacial CT revealed a nondisplaced right nasal fracture. CT spine negative. CBC showed normocytic anemia. BMP is pending. Elevated PTT coags at 33. Patient was loaded with 500 mg levetiracetam, given as needed for elevated blood pressure stabilized in the ED. Neurosurgical consultation was requested with Dr. Aiken. 08/31: Afebrile. CT brain revealed increased diameter right-sided subdural hematoma up to 1.9 cm. Shift is 1 mm right to left. Positive headache. No seizure activity. No real focal neurological deficits. 09/01: Patient subjective a weak left upper and lower extremity greater than right. Mumbling words. Stat CT brain revealed 2.6 cm image right intraparenchymal hemorrhage on the right temporal parietal region, 0.9 cm right cerebellar hemorrhage and bilateral subarachnoid hemorrhage convex's. Notified Dr. Aiken. Patient was intubated for airway protection and central line placed for hypertonic saline 09/02: Tmax 99.9. Improved subarachnoid hemorrhage. Stable right intraparenchymal hemorrhages. Potassium and phosphorus been replaced. No bowel movement. 09/03: Currently afebrile. Remains on propofol and fentanyl drips for sedation. Tolerating tube feeds at goal. Arousable with open eyes but not following commands currently. 09/04: Remains sedated, orally intubated on mechanical ventilation. Tolerating tube feeds. 09/05: Remains sedated, orally intubated on mechanical ventilation. Tolerating tube feeds. 09/06: Breathes over vent despite sedation. Withdraws limbs. 09/07: Remains sedated, orally intubated on mechanical ventilation. Tolerating tube feeds. 09/08: Will work toward extubation when OK with Neurosurgery. 09/09: Remains sedated, orally intubated on mechanical ventilation. Tolerating tube feeds. 09/10: Remains sedated, orally intubated on mechanical ventilation. Tolerating tube feeds. 09/11: Remains drowsy, orally intubated on mechanical ventilation. Tolerating tube feeds. Daily C Pap trials ongoing. Remains on nicardipine drip. 09/12: Remains drowsy, encephalopathic, orally intubated on mechanical ventilation. Tolerating tube feeds. Daily C Pap trials ongoing. Remains on nicardipine drip. 09/13: Drowsy, arousable, orally intubated on mechanical ventilation. Tolerating C Pap trial. Awaiting PEG tube today Subjective 09/14: Afebrile. Tolerating tube feeds at 1.5 at 45 cc an hour/goal. Positive BM. Will need percutaneous tracheostomy currently a day #14. Status post PEG tube I Dr. Gilliam Objective Vital Signs Date Time Temp Pulse Resp B/P (MAP) Pulse Ox O2 Delivery O2 Flow Rate FiO2 09/14/17 06:00 67 09/14/17 04:00 40 09/14/17 04:00 99.2 21 130/70 (90) 99 09/13/17 00:40 Ventilator Intake and Output 09/14/17 09/14/17 09/15/17 08:00 16:00 00:00 Intake Total 596 ml Output Total 750 ml Balance -154 ml Result Diagram: 09/14/17 0528 09/14/17 0528 Other Results Microbiology Date/Time Source Procedure Growth Status 09/09/17 13:33 Blood Peripheral Aerobic Blood Culture - Preliminary NO GROWTH IN 4 DAYS Resulted 09/09/17 13:33 Blood Peripheral Anaerobic Blood Culture - Preliminary NO GROWTH IN 4 DAYS Resulted 09/09/17 10:50 Sputum Endotracheal Gram Stain - Final Complete 09/09/17 10:50 Sputum Endotracheal Sputum Culture - Final HEAVY GROWTH NORMAL RESPIRATORY ALFREDO Complete 09/09/17 09:42 Urine Catheterized Urine Urine Culture - Final Escherichia Coli Complete Imaging Last Impressions Chest X-Ray 09/13/17 0000 Signed Impressions: Service Date/Time: September 13:13 - CONCLUSION: 1. Stable tubes and lines, as above. 2. Interval right lower lung zone plate like airspace consolidation consistent with atelectasis potentially secondary to mucous plugging, although aspiration or infection cannot be excluded. 3. Stable minimal left lower lung zone airspace disease, likely atelectasis. Skinny Muñiz MD Head CT 09/10/17 0600 Signed Impressions: Service Date/Time: Sunday, September 10, 2017 04:17 - CONCLUSION: Stable evolving intracranial hemorrhage with no new acute findings. Nacho Krishnan MD Abdomen X-Ray 09/01/17 0000 Signed Impressions: Service Date/Time: Friday, September 01, 2017 18:29 - CONCLUSION: Nasogastric tube coiled in the stomach with the tip projecting towards the GE junction. Migue Cuenca Jr., MD Maxillofacial CT 08/30/17 0000 Signed Impressions: Service Date/Time: August 15:13 - CONCLUSION: 1. There is a minimally depressed right nasal bone fracture with adjacent soft tissue swelling. No other fracture is visualized. 2. Please refer to head CT report for description of the right subdural hematoma. Nacho Buckley MD Lumbar Spine CT 08/30/17 0000 Signed Impressions: Service Date/Time: August 17:59 - CONCLUSION: Negative examination. Alec Latham MD Cervical Spine CT 08/30/17 0000 Signed Impressions: Service Date/Time: August 15:12 - CONCLUSION: 1. No acute fracture or subluxation. Skinny Muñiz MD Objective Remarks GENERAL: 57-year-old AA female, resting in bed orotracheally intubated SKIN: Warm and dry. Abrasions to the right cheek and chin with evolving ecchymoses HEAD: Status post right craniotomy with subdural, scalp drain in place EYES: Pupils equal and round about 3 mm bilaterally and reactive. Right eyelid swollen, protuberant globe. No scleral icterus. No injection or drainage. ENT: No nasal bleeding or discharge. Mucous membranes pink and moist. NECK: Trachea midline. Orally intubated. CARDIOVASCULAR: Tachycardia, RR. S1, S2. No S4. Without murmur. No JVD. RESPIRATORY: Clear to auscultation. Breath sounds equal bilaterally. No wheezes, rales or rhonchi GASTROINTESTINAL: Abdomen soft, non-tender, nondistended. PEG tube site is clean dry and intact without erythema. Bowel sounds are sluggish but appreciated MUSCULOSKELETAL: Extremities without significant peripheral edema. No obvious deformities. Well perfused. NEUROLOGICAL: Drowsy/encephalopathic, orally intubated, arouses on command, Withdraws to pain bilateral upper and lower extremities. Not following commands Date of Insertion: Sep 01, 2017 Line: Central Venous Catheter Side: Left Location: Internal, Jugular A/P Assessment and Plan Neuro/Psych: s/p right craniotomy with evacuation of subdural hematoma 2.6 cm right parietal/temporal intracranial hemorrhage, 0.9 cm right subdural hemorrhage and bilateral subarachnoid hemorrhage Right subdural hematoma - 1.6 cm fronto temporal with a 3 mm right to left shift Right closed nondisplaced nasal fracture Schizoaffective disorder Bipolar disorder Depression Seizure disorder NOS Off propofol and fentanyl drips for more than 48 hours. Remains drowsy, arousable CT brain 08/30 revealed a right frontal temporal subdural hematoma 1.6 cm thickness with a 3 mm right to left shift. Nondisplaced right nasal bone fracture. CT brain 08/31 revealed 2.6 cm right parietal intracranial hemorrhage, 0.9 cm right subdural hemorrhage and bilateral subarachnoid hemorrhage CT brain 09/01 revealed stable intraparenchymal hemorrhage improving subarachnoid hemorrhage at the convex CT Head 09/05 with stable areas of ICH/ SAH. EEG 08/31 revealed generalized slowing/encephalopathy. Disruption right side secondary to intraparenchymal hemorrhage. Levetiracetam 500 mg IV twice a day for seizure prophylaxis 7 days has been discontinued Resumed home dose of valproic acid 250mg BID via PEG tube Goal keep systolic blood pressure less than 140. Neurochecks Head of bed at 30 Stopped hypertonic saline 09/05 per neurosurgery. Evaluated by Dr. Aiken/neurosurgery Continue doxepin 10 mg by PEG tube daily Continue acetaminophen 650 mg every 6 hours when necessary fever Holding loratadine 10 mg by PEG tube daily Currently morphine sulfate 2-4 mg every 4 hours as needed for pain CV: Hypertension Dyslipidemia Increase metoprolol 100 mg via PEG tube Q6hrly for hypertension on 09/12. Prinivil 20mg BID. Amlodipine 10 mg PEG tube daily Continue isosorbide dinitrate 10 mg 3 times a day with hydralazine 100 mg every 8 hours Clonidine patch 0.3 mg every 7 days added 09/11 As needed labetalol, hydralazine, to keep systolic blood pressure less than 140. Continue atorvastatin 40 mg by mouth daily for dyslipidemia Resp: [facility] 16/500/11/16/39 Ventilator bundle Albuterol/ipratropium aerosols every 6 hours with albuterol aerosols every 2 hours prn dyspnea Spontaneous breathing trials daily Chest x-ray revealed bilateral lower lobe atelectasis left greater than right. GI: Continue tube feeding with vital 1.5 goal 50 cc. Status post PEG tube Dr. Gilliam 09/13 Famotidine 20 mg by PEG twice a day for GI prophylaxis Docusate sodium/senna t twice a day and polyethylene glycol twice a day for bowel regimen. Continue lactulose 30 cc twice a day as well : Incontinence Porter catheter if indicated for accurate I's and O's in a critically ill patient Continue Tolterodine 2 mg by mouth daily. Endo: Diabetes History of hypothyroidism/thyroid nodules Holding metformin 1000 mg daily and Linagliptin 5 mg daily for diabetes. Sliding-scale insulin with Accu-Cheks to maintain euglycemia detemir 15 units twice a day Renal: History of renal cell carcinoma status post right nephrectomy KVO IVF 09/05 Monitor urine output Accurate I's and O's Heme: Normocytic anemia Elevated PTT Thrombocytopenia Monitor CBC daily. Follow trends Does not meet transfusion thresholds at this time ID: Patient noted to have fevers and left shift with bands noted on peripheral smear. Obtained allen cultures and initiated empiric antibiotic coverage with IV Zosyn 09/09, discontinued on 09/11 as urine culture growing Escherichia coli sensitive to Rocephin. De-escalated to Rocephin 1 g IV daily starting 09/11. Management per infectious disease FEN: Hypophosphatemia Hypokalemia Replace electrolytes as clinically indicated per ICU electrolyte protocol. Resumed cholecalciferol 1000 U daily. MSK: Osteoarthritis Physical therapy evaluate and treat Access -Left IJ CVL Prophylaxis - GI famotidine - DVT- SCD/holding pharmacological prophylaxis in light of subdural hematoma. Will ask neurosurgery when can initiate. Level II follow-up Calvin Rodas MD Sep 14, 2017 07:59
[2017-09-14] MEDS: CHLORHEXIDINE 0.12% (ORAL KIT) 15 ML CUP MT SCH ×2 (08:00→20:00)
[2017-09-14] MEDS: LACTULOSE SYRUP 20 GM/30 ML CUP PO SCH ×2 (08:44→19:49)
[2017-09-14] MEDS: INSULIN DETEMIR 100 UNITS/ML VIAL SQ SCH ×2 (08:44→22:53)
[2017-09-14] MEDS: POLYETHYLENE GLYCOL 17 GM PKG PO SCH ×2 (08:44→19:50)
[2017-09-14] MEDS: SENNOSIDES SYRUP 8.8 MG/5 ML CUP PO SCH ×2 (08:44→19:50)
[2017-09-14] MEDS: SODIUM CHLORIDE 0.9% FLUSH 10 ML FLUSH IV FLUSH SCH ×3 (08:45→21:00)
[2017-09-14] MEDS: DOCUSATE SODIUM 100 MG/10 ML UDC PO SCH ×2 (08:45→19:49)
[2017-09-14] MEDS: VALPROIC ACID SYRUP 250 MG/5 ML UDC OG-TUBE SCH ×2 (09:00→22:51)
[2017-09-14] MEDS: CHOLECALCIFEROL (VIT D3) 1000 UNIT TAB PO SCH (09:00)
[2017-09-14] MEDS: TOLTERODINE TARTRATE 2 MG TAB PO SCH (09:00)
[2017-09-14] MEDS: FAMOTIDINE 20 MG TAB NG SCH ×2 (09:00→22:51)
[2017-09-14] MEDS: FUROSEMIDE 40 MG TAB PO SCH (09:00)
[2017-09-14] MEDS: LISINOPRIL 20 MG TAB PO SCH ×2 (09:06→22:52)
[2017-09-14] MEDS: cefTRIAXone INJ 1,000 MG in SODIUM CHLORIDE 0.9% INJ 100 ML IV SCH (09:10)
[2017-09-14] MEDS ORDERED: RESP: RACEPINEPHRINE 2.25% 0.5 ML NEB ONE (09:54)
[2017-09-14] MEDS ORDERED: RESP: RACEPINEPHRINE 2.25% 0.5 ML NEB NEB PRN (10:00)
[2017-09-14] MEDS ORDERED: RESP: RACEPINEPHRINE 2.25% 0.5 ML NEB NEB ONE (10:00)
[2017-09-14] MEDS ORDERED: DEXAMETHASONE SOD PHOS 4 MG/ML VIAL IV PUSH ONE ×2 (10:00→11:00)
[2017-09-14] MEDS ORDERED: DEXAMETHASONE SOD PHOS 20 MG/5 ML VIAL ONE (10:05)
[2017-09-14] MEDS ORDERED: ROCURONIUM INJ 50 MG/5 ML VIAL ONE (10:27)
[2017-09-14] MEDS ORDERED: ETOMIDATE 40 MG/20 ML VIAL IV PUSH ONE (10:30)
[2017-09-14] MEDS ORDERED: ROCURONIUM INJ 50 MG/5 ML VIAL IV ONE (10:30)
--- NOTE | 2017-09-14 10:59 | PD.PROCEDR ---
Procedure Note Procedure DATE: 09/14/2017 PROCEDURE: Orotracheal intubation INDICATION: Failed extubation DETAILS OF PROCEDURE The patient was placed in optimal position and preoxygenated with 100% FiO2 via bag valve mask. At the start oxygen saturation was 100%. The patient was administered 40 milligrams etomidate IV and 100 milligrams rocuronium IV. I entered the oropharynx with a size 4 GVL Glidescope blade and obtained a grade 3 view of the airway. On single attempt a size 7.5 cuffed endotracheal tube was passed through the vocal cords. Correct tube location was confirmed with end tidal CO2 detector and by auscultating over bilateral lung gresham. The endotracheal tube was secured with adhesive tape at a depth of 24 cm at the lips. The patient was connected to the ventilator. The patient tolerated the procedure well without any apparent complications. Oxygen saturations were maintained greater than 95% all times. STAT chest x-ray pending at time of dictation. Calvin Rodas MD Sep 14, 2017 10:59
[2017-09-14] MEDS ORDERED: PROPOFOL 1000 MG/100 ML INJ 100 ML IV PRN (11:00)
[2017-09-14] MEDS ORDERED: niCARdipine INJ 25 MG in SODIUM CHLOR 0.9% 250 ML INJ 240 ML IV PRN (11:00)
--- NOTE | 2017-09-14 11:04 | HHI.GIFU ---
Subjective Remarks Pt was extubated earlier today- now with respiratory distress, wheezing, stridor , despite breathing tx. Respiratory in room, planning for reintubation (Ivis Stanley) Objective Vitals I&O Vital Signs Date Time Temp Pulse Resp B/P (MAP) Pulse Ox O2 Delivery O2 Flow Rate FiO2 09/14/17 10:00 109 09/14/17 10:00 100 Nasal Cannula 4 09/14/17 09:38 100 40 09/14/17 08:00 40 09/14/17 08:00 99.2 68 22 146/79 (101) 100 09/14/17 08:00 68 09/14/17 07:45 40 09/14/17 06:00 67 09/14/17 04:00 82 09/14/17 04:00 40 09/14/17 04:00 99.2 82 21 130/70 (90) 99 09/14/17 02:00 74 09/14/17 00:06 97 40 09/14/17 00:00 76 09/14/17 00:00 100.1 76 16 144/75 (98) 96 09/14/17 00:00 40 09/13/17 22:00 72 09/13/17 20:51 99 40 09/13/17 20:00 66 09/13/17 20:00 98.2 66 16 136/76 (96) 95 09/13/17 20:00 40 09/13/17 18:01 16 09/13/17 18:00 67 09/13/17 17:09 97 40 09/13/17 16:00 68 09/13/17 16:00 98.6 70 20 143/78 (99) 96 09/13/17 16:00 40 09/13/17 14:00 68 09/13/17 12:00 40 09/13/17 12:00 73 09/13/17 12:00 99.0 67 11 134/65 (88) 99 I/O 09/13/17 09/13/17 09/13/17 09/14/17 09/14/17 09/14/17 07:00 15:00 23:00 07:00 15:00 23:00 Intake Total 350 ml 1015 ml 596 ml Output Total 2001 ml 1700 ml 750 ml Balance -1651 ml -685 ml -154 ml Intake Oral 0 ml IV Total 815 ml 56 ml Tube Feeding 200 ml Other 150 ml 200 ml 540 ml Output Urine Total 2000 ml 1700 ml 750 ml Stool Total 1 ml # Bowel Movements 3 1 Laboratory Laboratory Tests Test 09/13/17 18:40 09/14/17 05:28 Potassium Level 3.9 3.7 White Blood Count 12.6 Red Blood Count 2.90 Hemoglobin 7.8 Hematocrit 24.0 Mean Corpuscular Volume 82.9 Mean Corpuscular Hemoglobin 27.0 Mean Corpuscular Hemoglobin Concent 32.6 Red Cell Distribution Width 14.9 Platelet Count 455 Mean Platelet Volume 7.9 Neutrophils (%) (Auto) 78.0 Lymphocytes (%) (Auto) 15.7 Monocytes (%) (Auto) 5.5 Eosinophils (%) (Auto) 0.3 Basophils (%) (Auto) 0.5 Neutrophils # (Auto) 9.8 Lymphocytes # (Auto) 2.0 Monocytes # (Auto) 0.7 Eosinophils # (Auto) 0.0 Basophils # (Auto) 0.1 CBC Comment DIFF FINAL Differential Comment Blood Urea Nitrogen 13 Creatinine 0.49 Random Glucose 106 Total Protein 6.9 Albumin 2.1 Calcium Level 9.7 Alkaline Phosphatase 118 Aspartate Amino Transf (AST/SGOT) 37 Alanine Aminotransferase (ALT/SGPT) 51 Total Bilirubin 0.4 Sodium Level 139 Chloride Level 106 Carbon Dioxide Level 22.3 Anion Gap 11 Estimat Glomerular Filtration Rate 157 Date/Time Source Procedure Growth Status 09/09/17 13:33 Blood Peripheral Aerobic Blood Culture - Preliminary NO GROWTH IN 4 DAYS Resulted 09/09/17 13:33 Blood Peripheral Anaerobic Blood Culture - Preliminary NO GROWTH IN 4 DAYS Resulted 09/09/17 10:50 Sputum Endotracheal Gram Stain - Final Complete 09/09/17 10:50 Sputum Endotracheal Sputum Culture - Final HEAVY GROWTH NORMAL RESPIRATORY ALFREDO Complete 09/09/17 09:42 Urine Catheterized Urine Urine Culture - Final Escherichia Coli Complete Imaging Last Impressions Chest X-Ray 09/13/17 0000 Signed Impressions: Service Date/Time: , September 13, 2017 13:13 - CONCLUSION: 1. Stable tubes and lines, as above. 2. Interval right lower lung zone plate like airspace consolidation consistent with atelectasis potentially secondary to mucous plugging, although aspiration or infection cannot be excluded. 3. Stable minimal left lower lung zone airspace disease, likely atelectasis. Skinny Muñiz MD Head CT 09/10/17 0600 Signed Impressions: Service Date/Time: Sunday, September 10, 2017 04:17 - CONCLUSION: Stable evolving intracranial hemorrhage with no new acute findings. Nacho Krishnan MD Abdomen X-Ray 09/01/17 0000 Signed Impressions: Service Date/Time: Friday, September 01, 2017 18:29 - CONCLUSION: Nasogastric tube coiled in the stomach with the tip projecting towards the GE junction. Migue Cuenca Jr., MD Maxillofacial CT 08/30/17 0000 Signed Impressions: Service Date/Time: , August 30, 2017 15:13 - CONCLUSION: 1. There is a minimally depressed right nasal bone fracture with adjacent soft tissue swelling. No other fracture is visualized. 2. Please refer to head CT report for description of the right subdural hematoma. Nacho Buckley MD Lumbar Spine CT 08/30/17 0000 Signed Impressions: Service Date/Time: August 17:59 - CONCLUSION: Negative examination. Alec Latham MD Cervical Spine CT 08/30/17 0000 Signed Impressions: Service Date/Time: August 15:12 - CONCLUSION: 1. No acute fracture or subluxation. Skinny Muñiz MD Physical Exam HEENT: Normocephalic; atraumatic; no jaundice. CHEST: Resp. labored, wheezing, getting breathing tx. CARDIAC: ST ABDOMEN: Soft, nondistended, nontender; no hepatosplenomegaly; bowel sounds are present in all four quadrants. PEG tube site with scant amount of dried blood- no swelling/drainage EXTREMITIES: Generalized edema. SKIN: Normal; no rash; no jaundice. 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 Pt currently in the ICU for TBI/SDH/SAH. S/P Craniotomy for evacuation. S/P EGD with PEG tube placement (09/14/17)---> 1. The upper, middle, and distal third of the esophagus were carefully inspected and no abnormalities were noted. The z-line was well seen at the GEJ. The endoscope was pushed into the fundus which was normal including a retroflexed view. The antrum, first and second part of the duodenum were unremarkable. 2. 20 F PEG tube placed successfully. - Resp. Failure. S/P Extubation earlier today, but now with labored breathing/ wheezing. Possible reintubation - Anemia, 7.8/24.0. - S/P Fall, TBI/SDH/SAH, per NSx. PLAN - Vital High Protein at 50cc/hr once reintubated - GI will sign off, please reconsult as noted. - Pt seen and examined by Dr. Gilliam and myself and this note is written on his behalf (Ivis Stanley) Physician Comments Seen and examined, plan as above. TF tolerated well. Please notify us if needed. (Bandar Gilliam MD) Ivis Stanley Sep 14, 2017 11:04 Bandar Gilliam MD Sep 14, 2017 11:34
[2017-09-14] MEDS: RESP: ALBUTEROL 2.5 MG/IPRATROPIUM 0.5 MG NEB (SCH) NEB ×3 (11:15→20:08)
[2017-09-14 11:32] LABS: BLOOD GAS BASE EXCESS -2.5 mmol/L (-2-2); BLOOD GAS CARBOXYHEMOGLOBIN 1.1 % (0-4); BLOOD GAS HCO3 21 mmol/L (22-26); BLOOD GAS METHEMOGLOBIN 0.9 % (0-2); BLOOD GAS O2 HGB SATURATION 94 % (90-100); BLOOD GAS OXYGEN CONTENT 14.7 Vol % (12.0-20.0); BLOOD GAS PCO2 34 mmHg (38-42); BLOOD GAS PO2 85 mmHg (61-120); BLOOD GAS TOTAL HGB 11.1 G/DL (12.0-16.0); TEMP CORR TO 98.6
[2017-09-14 11:33] LABS: CRITICAL VALUE NO; DRAW SITE RT RADIAL; FIO2 50 %; NUMBER OF ARTERIAL PUNCTURES 1; OXYGEN DEVICE VENTILATOR; STAT NO; ULNAR PULSE PRESENT; VENT SETTINGS PRVC16/500/1.0/+5
--- NOTE | 2017-09-14 11:59 | RADRPT ---
EXAM DATE/TIME: 09/14/2017 11:33 [facility] COMPARISON: CHEST SINGLE AP, September 13, 2017, 13:13. INDICATIONS : Reintubation. MEDICAL HISTORY : Hypertension. Renal cell carcinoma. SURGICAL HISTORY : Cholecystectomy. Tubal ligation.Nephrectomy, right. ENCOUNTER: Subsequent ACUITY: 3 weeks PAIN SCORE: Non-responsive. LOCATION: Bilateral chest FINDINGS: ET tube right main bronchus. Central line tip at the cava innominate vein junction. Right lung jennie r. Minimal clinical changes left base. There is no pneumothorax. CONCLUSION: 1. ET tube right main bronchus with reexpansion right lower lobe. 2. Developing opacity left base.. Stu Huynh MD FACR on September 14, 2017 at 11:55 Board Certified Radiologist. This report was verified electronically.
[2017-09-14] MEDS: DEXAMETHASONE SOD PHOS 4 MG/ML VIAL IV PUSH SCH (17:28)
[2017-09-14] MEDS: ATORVASTATIN 40 MG TAB PO SCH (22:52)
[2017-09-14] MEDS: DOXEPIN HCL 10 MG CAP PO SCH (22:54)
[2017-09-15] VITALS (20 sets, daily range): BP systolic 115–153; BP diastolic 61–76; PULSE 55–76; RESP 17–22; TEMP 97.8–99.5; O2SAT 92–100
[2017-09-15] MEDS: METOPROLOL TARTRATE 100 MG TAB PO SCH ×5 (00:39→23:38)
[2017-09-15] MEDS: INSULIN NovoLIN REGULAR SUPPLEMENTAL SCALE SQ SCH ×5 (00:39→23:54)
[2017-09-15] MEDS: DEXAMETHASONE SOD PHOS 4 MG/ML VIAL IV PUSH SCH ×4 (00:40→23:38)
[2017-09-15] MEDS: hydrALAZINE HCL 100 MG TAB PO SCH ×3 (00:41→17:23)
[2017-09-15] MEDS: RESP: ALBUTEROL 2.5 MG/IPRATROPIUM 0.5 MG NEB (SCH) NEB ×4 (04:21→21:08)
[2017-09-15 04:47] LABS: AUTOMATED NEUTROPHIL # 10.2 TH/MM3 (1.8-7.7); BASOPHIL % 0.2 % (0.0-2.0); HEMO FLAGS DIFF FINAL; LYMPH % 6.1 % (9.0-44.0); LYMPHOCYTE # 0.7 TH/MM3 (1.0-4.8); MEAN CELL VOLUME 84.2 FL (80.0-100.0); MONO % 2.7 % (0.0-8.0); PLATELET COUNT 479 TH/MM3 (150-450); RED BLOOD COUNT 2.85 MIL/MM3 (4.00-5.30); RED CELL DISTRIBUTION WIDTH 14.6 % (11.6-17.2); WHITE BLOOD COUNT 11.2 TH/MM3 (4.0-11.0)
[2017-09-15 05:05] LABS: MAGNESIUM 2.2 MG/DL (1.5-2.5); POTASSIUM 3.7 MEQ/L (3.5-5.1)
[2017-09-15] MEDS: ARTIFICIAL TEARS OPTH SOLN 15 ML BTL EACH EYE SCH ×3 (06:00→22:45)
[2017-09-15] MEDS: ISOSORBIDE DINITRATE 10 MG TAB PO SCH ×3 (06:39→22:44)
[2017-09-15] MEDS: CHLORHEXIDINE 0.12% (ORAL KIT) 15 ML CUP MT SCH ×2 (08:55→20:06)
[2017-09-15] MEDS: TOLTERODINE TARTRATE 2 MG TAB PO SCH (08:55)
[2017-09-15] MEDS: FUROSEMIDE 40 MG TAB PO SCH (08:55)
[2017-09-15] MEDS: SODIUM CHLORIDE 0.9% FLUSH 10 ML FLUSH IV FLUSH SCH ×3 (08:55→20:16)
[2017-09-15] MEDS: FAMOTIDINE 20 MG TAB NG SCH ×2 (08:56→20:14)
[2017-09-15] MEDS: CHOLECALCIFEROL (VIT D3) 1000 UNIT TAB PO SCH (08:56)
[2017-09-15] MEDS: LISINOPRIL 20 MG TAB PO SCH ×2 (08:56→20:15)
[2017-09-15] MEDS: LACTULOSE SYRUP 20 GM/30 ML CUP PO SCH ×2 (08:57→20:16)
[2017-09-15] MEDS: SENNOSIDES SYRUP 8.8 MG/5 ML CUP PO SCH ×2 (08:57→20:16)
[2017-09-15] MEDS: DOCUSATE SODIUM 100 MG/10 ML UDC PO SCH ×2 (08:57→20:16)
[2017-09-15] MEDS: POLYETHYLENE GLYCOL 17 GM PKG PO SCH ×2 (08:57→20:16)
[2017-09-15] MEDS: VALPROIC ACID SYRUP 250 MG/5 ML UDC OG-TUBE SCH ×2 (08:57→20:19)
[2017-09-15] MEDS: INSULIN DETEMIR 100 UNITS/ML VIAL SQ SCH ×2 (08:58→20:17)
[2017-09-15] MEDS: cefTRIAXone INJ 1,000 MG in SODIUM CHLORIDE 0.9% INJ 100 ML IV SCH (10:23)
--- NOTE | 2017-09-15 12:20 | HHI.CCPN ---
Subjective Remarks/Hospital Course 57-year-old AA female . Date of admission 08/30/2017. Past medical history includes schizoaffective/bipolar, depression, seizure disorder, hypertension, dyslipidemia, diabetes and allergic rhinitis. She is not on any blood thinners or aspirin. This patient was walking from [employer] [place] in approximately 6 AM this morning when she suffered a fall and landed on the right side of her face.. She states she slipped in the wet grass hitting her face on the concrete. No loss of consciousness. Not seizure activity noted. Not tongue biting. No incontinence of stool or urine. 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 Patient states that she's been having a headache and right-sided facial pain since. 08/30 CT of the brain showed a right frontotemporal subdural hematoma 1.6 cm with a 3 mm right to left shift. Maxillofacial CT revealed a nondisplaced right nasal fracture. CT spine negative. CBC showed normocytic anemia. BMP is pending. Elevated PTT coags at 33. Patient was loaded with 500 mg levetiracetam, given as needed for elevated blood pressure stabilized in the ED. Neurosurgical consultation was requested with Dr. Aiken. 08/31: Afebrile. CT brain revealed increased diameter right-sided subdural hematoma up to 1.9 cm. Shift is 1 mm right to left. Positive headache. No seizure activity. No real focal neurological deficits. 09/01: Patient subjective a weak left upper and lower extremity greater than right. Mumbling words. Stat CT brain revealed 2.6 cm image right intraparenchymal hemorrhage on the right temporal parietal region, 0.9 cm right cerebellar hemorrhage and bilateral subarachnoid hemorrhage convex's. Notified Dr. Aiken. Patient was intubated for airway protection and central line placed for hypertonic saline 09/02: Tmax 99.9. Improved subarachnoid hemorrhage. Stable right intraparenchymal hemorrhages. Potassium and phosphorus been replaced. No bowel movement. 09/03: Currently afebrile. Remains on propofol and fentanyl drips for sedation. Tolerating tube feeds at goal. Arousable with open eyes but not following commands currently. 09/04: Remains sedated, orally intubated on mechanical ventilation. Tolerating tube feeds. 09/05: Remains sedated, orally intubated on mechanical ventilation. Tolerating tube feeds. 09/06: Breathes over vent despite sedation. Withdraws limbs. 09/07: Remains sedated, orally intubated on mechanical ventilation. Tolerating tube feeds. 09/08: Will work toward extubation when OK with Neurosurgery. 09/09: Remains sedated, orally intubated on mechanical ventilation. Tolerating tube feeds. 09/10: Remains sedated, orally intubated on mechanical ventilation. Tolerating tube feeds. 09/11: Remains drowsy, orally intubated on mechanical ventilation. Tolerating tube feeds. Daily C Pap trials ongoing. Remains on nicardipine drip. 09/12: Remains drowsy, encephalopathic, orally intubated on mechanical ventilation. Tolerating tube feeds. Daily C Pap trials ongoing. Remains on nicardipine drip. 09/13: Drowsy, arousable, orally intubated on mechanical ventilation. Tolerating C Pap trial. Awaiting PEG tube today 09/14: Afebrile. Tolerating tube feeds at 1.5 at 45 cc an hour/goal. Positive BM. Will need percutaneous tracheostomy currently a day #14. Status post PEG tube I Dr. Gilliam Subjective 09/15: Failed extubation yesterday due to stridor. Upon intubation area was edematous. Currently receiving Decadron 48 hours. Attempt extubation tomorrow versus tracheostomy on Sunday. She is awake she will intermittently follow commands. Objective Vital Signs Date Time Temp Pulse Resp B/P (MAP) Pulse Ox O2 Delivery O2 Flow Rate FiO2 09/15/17 11:12 100 40 09/15/17 06:00 55 09/15/17 04:00 99.0 18 139/72 (94) 09/14/17 10:00 Nasal Cannula 4 Intake and Output 09/15/17 09/15/17 09/16/17 08:00 16:00 00:00 Intake Total 750 ml 140 ml Output Total 850 ml Balance -100 ml 140 ml Result Diagram: 09/15/17 0419 09/15/17 0419 Other Results Microbiology Date/Time Source Procedure Growth Status 09/09/17 13:33 Blood Peripheral Aerobic Blood Culture - Final NO GROWTH IN 5 DAYS Complete 09/09/17 13:33 Blood Peripheral Anaerobic Blood Culture - Final NO GROWTH IN 5 DAYS Complete 09/09/17 10:50 Sputum Endotracheal Gram Stain - Final Complete 09/09/17 10:50 Sputum Endotracheal Sputum Culture - Final HEAVY GROWTH NORMAL RESPIRATORY ALFREDO Complete 09/09/17 09:42 Urine Catheterized Urine Urine Culture - Final Escherichia Coli Complete Imaging Last Impressions Chest X-Ray 09/14/17 0000 Signed Impressions: Service Date/Time: Thursday, September 14, 2017 11:33 - CONCLUSION: 1. ET tube right main bronchus with reexpansion right lower lobe. 2. Developing opacity left base.. Stu Huynh MD FACR Head CT 09/10/17 0600 Signed Impressions: Service Date/Time: Sunday, September 10, 2017 04:17 - CONCLUSION: Stable evolving intracranial hemorrhage with no new acute findings. Nacho Krishnan MD Abdomen X-Ray 09/01/17 0000 Signed Impressions: Service Date/Time: Friday, September 01, 2017 18:29 - CONCLUSION: Nasogastric tube coiled in the stomach with the tip projecting towards the GE junction. Migue Cuenca Jr., MD Maxillofacial CT 08/30/17 0000 Signed Impressions: Service Date/Time: August 15:13 - CONCLUSION: 1. There is a minimally depressed right nasal bone fracture with adjacent soft tissue swelling. No other fracture is visualized. 2. Please refer to head CT report for description of the right subdural hematoma. Nacho Buckley MD Lumbar Spine CT 08/30/17 0000 Signed Impressions: Service Date/Time: August 17:59 - CONCLUSION: Negative examination. Alec Latham MD Cervical Spine CT 08/30/17 0000 Signed Impressions: Service Date/Time: August 15:12 - CONCLUSION: 1. No acute fracture or subluxation. Skinny Muñiz MD Objective Remarks GENERAL: 57-year-old AA female, resting in bed orotracheally intubated SKIN: Warm and dry. Abrasions to the right cheek and chin with evolving ecchymoses HEAD: Status post right craniotomy with subdural, scalp drain in place EYES: Pupils equal and round about 3 mm bilaterally and reactive. Right eyelid swollen, protuberant globe. No scleral icterus. No injection or drainage. ENT: No nasal bleeding or discharge. Mucous membranes pink and moist. NECK: Trachea midline. Orally intubated. CARDIOVASCULAR: RRR. S1, S2. No S4. Without murmur. No JVD. RESPIRATORY: Clear to auscultation. Breath sounds equal bilaterally. No wheezes, rales or rhonchi GASTROINTESTINAL: Abdomen soft, non-tender, nondistended. PEG tube site is clean dry and intact without erythema. Bowel sounds are sluggish but appreciated MUSCULOSKELETAL: Extremities without significant peripheral edema. No obvious deformities. Well perfused. NEUROLOGICAL: Drowsy/encephalopathic, orally intubated, arouses on command, Withdraws to pain bilateral upper and lower extremities. Intermittently following commands Date of Insertion: Sep 01, 2017 Line: Central Venous Catheter Side: Left Location: Internal, Jugular A/P Assessment and Plan Neuro/Psych: s/p right craniotomy with evacuation of subdural hematoma 2.6 cm right parietal/temporal intracranial hemorrhage, 0.9 cm right subdural hemorrhage and bilateral subarachnoid hemorrhage Right subdural hematoma - 1.6 cm fronto temporal with a 3 mm right to left shift Right closed nondisplaced nasal fracture Schizoaffective disorder Bipolar disorder Depression Seizure disorder NOS Currently on as needed propofol/fentanyl drips for sedation/analgesia while intubated Goal of RASS -[address] brain 08/30 revealed a right frontal temporal subdural hematoma 1.6 cm thickness with a 3 mm right to left shift. Nondisplaced right nasal bone fracture. CT brain 08/31 revealed 2.6 cm right parietal intracranial hemorrhage, 0.9 cm right subdural hemorrhage and bilateral subarachnoid hemorrhage CT brain 09/01 revealed stable intraparenchymal hemorrhage improving subarachnoid hemorrhage at the convex CT Head 09/05 with stable areas of ICH/ SAH. EEG 08/31 revealed generalized slowing/encephalopathy. Disruption right side secondary to intraparenchymal hemorrhage. Levetiracetam 500 mg IV twice a day for seizure prophylaxis 7 days has been discontinued Resumed home dose of valproic acid 250mg BID via PEG tube Goal keep systolic blood pressure less than 140. Neurochecks Head of bed at 30 Stopped hypertonic saline 09/05 per neurosurgery. Evaluated by Dr. Aiken/neurosurgery Continue doxepin 10 mg by PEG tube daily Continue acetaminophen 650 mg every 6 hours when necessary fever Holding loratadine 10 mg by PEG tube daily Currently morphine sulfate 2-4 mg every 4 hours as needed for pain CV: Hypertension Dyslipidemia Increase metoprolol 100 mg via PEG tube Q6hrly for hypertension on 09/12. Prinivil 20mg BID. Amlodipine 10 mg PEG tube daily Continue isosorbide dinitrate 10 mg 3 times a day with hydralazine 100 mg every 8 hours Clonidine patch 0.3 mg every 7 days added 09/11 As needed labetalol, hydralazine, to keep systolic blood pressure less than 140. Continue atorvastatin 40 mg by mouth daily for dyslipidemia Resp: PRVC 16/500/11/16/39 Ventilator bundle Albuterol/ipratropium aerosols every 6 hours with albuterol aerosols every 2 hours prn dyspnea Spontaneous breathing trials daily Chest x-ray revealed bilateral lower lobe atelectasis left greater than right. GI: Continue tube feeding with vital 1.5 goal 50 cc. Status post PEG tube Dr. Gilliam 09/13 Famotidine 20 mg by PEG twice a day for GI prophylaxis Docusate sodium/senna t twice a day and polyethylene glycol twice a day for bowel regimen. Continue lactulose 30 cc twice a day as well : Incontinence Porter catheter if indicated for accurate I's and O's in a critically ill patient Continue Tolterodine 2 mg by mouth daily. Endo: Diabetes History of hypothyroidism/thyroid nodules Holding metformin 1000 mg daily and Linagliptin 5 mg daily for diabetes. Sliding-scale insulin with Accu-Cheks to maintain euglycemia Insulin Detemir 15 units twice a day Renal: History of renal cell carcinoma status post right nephrectomy KVO IVF 09/05 Monitor urine output Accurate I's and O's Heme: Normocytic anemia Elevated PTT Thrombocytopenia Monitor CBC daily. Follow trends Does not meet transfusion thresholds at this time ID: Patient noted to have fevers and left shift with bands noted on peripheral smear. Obtained allen cultures and initiated empiric antibiotic coverage with IV Zosyn 09/09, discontinued on 09/11 as urine culture growing Escherichia coli sensitive to Rocephin. De-escalated to Rocephin 1 g IV daily starting 09/11. Management per infectious disease FEN: Hypophosphatemia Hypokalemia Replace electrolytes as clinically indicated per ICU electrolyte protocol. Resumed cholecalciferol 1000 U daily. MSK: Osteoarthritis Physical therapy evaluate and treat Access -Left IJ CVL Prophylaxis - GI famotidine - DVT- SCD/holding pharmacological prophylaxis in light of subdural hematoma. Will ask neurosurgery when can initiate. Level II follow-up Biga,Calvin M. MD Sep 15, 2017 12:20
[2017-09-15] MEDS: hydrALAZINE HCL 20 MG/ML VIAL IV PUSH PRN (14:19)
[2017-09-15] MEDS: ACETAMINOPHEN 650 MG/20.3 ML UDC PO PRN (17:52)
[2017-09-15] MEDS: DOXEPIN HCL 10 MG CAP PO SCH (20:14)
[2017-09-15] MEDS: ATORVASTATIN 40 MG TAB PO SCH (20:14)
[2017-09-15] MEDS ORDERED: LISI-515 PO (22:47)
[2017-09-15] MEDS ORDERED: TRAD5TAB PO (22:47)
[2017-09-15] MEDS ORDERED: METF1000 PO (22:47)
[2017-09-16] VITALS (18 sets, daily range): BP systolic 132–153; BP diastolic 72–82; PULSE 52–71; RESP 10–21; TEMP 97.8–98.8; O2SAT 99–100
[2017-09-16] MEDS: hydrALAZINE HCL 100 MG TAB PO SCH ×3 (01:20→18:00)
[2017-09-16] MEDS: CHLORHEXIDINE GLUCONATE 2 % 1 PACK (2 CLOTHS) TOP SCH (04:00)
[2017-09-16] MEDS: RESP: ALBUTEROL 2.5 MG/IPRATROPIUM 0.5 MG NEB (SCH) NEB ×4 (04:09→21:18)
[2017-09-16 04:39] LABS: AUTOMATED NEUTROPHIL # 9.2 TH/MM3 (1.8-7.7); BASOPHIL # 0.1 TH/MM3 (0-0.2); BASOPHIL % 0.6 % (0.0-2.0); HEMATOCRIT 23.8 % (35.0-46.0); LYMPH % 11.3 % (9.0-44.0); LYMPHOCYTE # 1.3 TH/MM3 (1.0-4.8); MEAN CELL VOLUME 82.6 FL (80.0-100.0); MEAN CORPUSCULAR HGB CONC 32.7 % (32.0-36.0); MONO % 5.8 % (0.0-8.0); NEUT % 82.3 % (16.0-70.0); PLATELET COUNT 545 TH/MM3 (150-450); RED BLOOD COUNT 2.88 MIL/MM3 (4.00-5.30); RED CELL DISTRIBUTION WIDTH 14.8 % (11.6-17.2); WHITE BLOOD COUNT 11.2 TH/MM3 (4.0-11.0)
[2017-09-16 04:41] LABS: HEMO FLAGS AUTO DIFF
[2017-09-16 05:10] LABS: ANION GAP 10 MEQ/L (5-15); AST (GOT) 31 U/L (15-37); BICARBONATE 25.4 MEQ/L (21.0-32.0); BLOOD UREA NITROGEN 23 MG/DL (7-18); CHLORIDE 105 MEQ/L (98-107); GLOMERULAR FILTRATION RATE 98 ML/MIN (>89); POTASSIUM 3.4 MEQ/L (3.5-5.1); SODIUM (NA) 140 MEQ/L (136-145)
[2017-09-16 05:12] LABS: ALT (GPT) 64 U/L (10-53)
[2017-09-16 05:14] LABS: ALKALINE PHOSPHATASE 121 U/L (45-117); TOTAL BILIRUBIN ADULT 0.3 MG/DL (0.2-1.0)
[2017-09-16 05:42] LABS: OVALOCYTES 1+ (NORMAL); PLATELET ESTIMATE SMEAR HIGH (NORMAL); PLATELET MORPHOLOGY NORMAL (NORMAL); SCAN/DIFF AUTO DIFF CONFIRMED
[2017-09-16] MEDS: ISOSORBIDE DINITRATE 10 MG TAB PO SCH ×3 (05:42→21:55)
[2017-09-16] MEDS: METOPROLOL TARTRATE 100 MG TAB PO SCH ×3 (05:42→18:00)
[2017-09-16] MEDS: DEXAMETHASONE SOD PHOS 4 MG/ML VIAL IV PUSH SCH ×2 (05:42→12:31)
[2017-09-16] MEDS: ARTIFICIAL TEARS OPTH SOLN 15 ML BTL EACH EYE SCH ×3 (05:43→21:55)
[2017-09-16] MEDS: POTASSIUM PHOSPHATE INJ 30 MMOL in SODIUM CHLOR 0.9% 250 ML INJ 250 ML IV PRN (05:43)
[2017-09-16] MEDS: INSULIN NovoLIN REGULAR SUPPLEMENTAL SCALE SQ SCH ×3 (06:00→18:00)
--- NOTE | 2017-09-16 06:02 | RADRPT ---
EXAM DATE/TIME: 09/16/2017 04:54 [facility] COMPARISON: CHEST SINGLE AP, September 14, 2017, 11:33. INDICATIONS : Respiratory failure. MEDICAL HISTORY : None. SURGICAL HISTORY : None. ENCOUNTER: Subsequent ACUITY: 4 - 6 days PAIN SCORE: Non-responsive. LOCATION: Bilateral chest FINDINGS: Single AP view of the chest. Endotracheal tube remains in place. Left IJ central venous catheter is n o longer seen. Mild patchy bilateral pulmonary opacity likely representing atelectasis. Decrease on t he left when compared to prior study. Cardiomediastinal silhouette unchanged. No evidence of pleural effusion or pneumothorax. CONCLUSION: Persistent bilateral patchy pulmonary opacity, decreased on the left. Leonardo Muse MD on September 16, 2017 at 5:59 Board Certified Radiologist. This report was verified electronically.
[2017-09-16] MEDS: SENNOSIDES SYRUP 8.8 MG/5 ML CUP PO SCH ×2 (09:00→20:31)
[2017-09-16] MEDS: DOCUSATE SODIUM 100 MG/10 ML UDC PO SCH ×2 (09:00→20:31)
[2017-09-16] MEDS: SODIUM CHLORIDE 0.9% FLUSH 10 ML FLUSH IV FLUSH SCH ×3 (09:00→20:33)
[2017-09-16] MEDS: LACTULOSE SYRUP 20 GM/30 ML CUP PO SCH ×2 (09:00→21:00)
[2017-09-16] MEDS: INSULIN DETEMIR 100 UNITS/ML VIAL SQ SCH ×2 (09:00→20:33)
[2017-09-16] MEDS: POLYETHYLENE GLYCOL 17 GM PKG PO SCH ×2 (09:00→21:00)
[2017-09-16] MEDS: TOLTERODINE TARTRATE 2 MG TAB PO SCH (09:49)
[2017-09-16] MEDS: FUROSEMIDE 40 MG TAB PO SCH (09:49)
[2017-09-16] MEDS: CHOLECALCIFEROL (VIT D3) 1000 UNIT TAB PO SCH (09:49)
[2017-09-16] MEDS: VALPROIC ACID SYRUP 250 MG/5 ML UDC OG-TUBE SCH ×2 (09:50→20:32)
[2017-09-16] MEDS: LISINOPRIL 20 MG TAB PO SCH ×2 (09:50→20:32)
[2017-09-16] MEDS: FAMOTIDINE 20 MG TAB NG SCH ×2 (09:50→20:32)
[2017-09-16] MEDS: CHLORHEXIDINE 0.12% (ORAL KIT) 15 ML CUP MT SCH ×2 (09:51→20:33)
[2017-09-16] MEDS: cefTRIAXone INJ 1,000 MG in SODIUM CHLORIDE 0.9% INJ 100 ML IV SCH (09:53)
--- NOTE | 2017-09-16 09:55 | HHI.CCPN ---
Subjective Remarks/Hospital Course 57-year-old AA female . Date of admission 08/30/2017. Past medical history includes schizoaffective/bipolar, depression, seizure disorder, hypertension, dyslipidemia, diabetes and allergic rhinitis. She is not on any blood thinners or aspirin. This patient was walking from [place] in approximately 6 AM this morning when she suffered a fall and landed on the right side of her face.. She states she slipped in the wet grass hitting her face on the concrete. No loss of consciousness. Not seizure activity noted. Not tongue biting. No incontinence of stool or urine. 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 Patient states that she's been having a headache and right-sided facial pain since. 08/30 CT of the brain showed a right frontotemporal subdural hematoma 1.6 cm with a 3 mm right to left shift. Maxillofacial CT revealed a nondisplaced right nasal fracture. CT spine negative. CBC showed normocytic anemia. BMP is pending. Elevated PTT coags at 33. Patient was loaded with 500 mg levetiracetam, given as needed for elevated blood pressure stabilized in the ED. Neurosurgical consultation was requested with Dr. Aiken. 08/31: Afebrile. CT brain revealed increased diameter right-sided subdural hematoma up to 1.9 cm. Shift is 1 mm right to left. Positive headache. No seizure activity. No real focal neurological deficits. 09/01: Patient subjective a weak left upper and lower extremity greater than right. Mumbling words. Stat CT brain revealed 2.6 cm image right intraparenchymal hemorrhage on the right temporal parietal region, 0.9 cm right cerebellar hemorrhage and bilateral subarachnoid hemorrhage convex's. Notified Dr. Aiken. Patient was intubated for airway protection and central line placed for hypertonic saline 09/02: Tmax 99.9. Improved subarachnoid hemorrhage. Stable right intraparenchymal hemorrhages. Potassium and phosphorus been replaced. No bowel movement. 09/03: Currently afebrile. Remains on propofol and fentanyl drips for sedation. Tolerating tube feeds at goal. Arousable with open eyes but not following commands currently. 09/04: Remains sedated, orally intubated on mechanical ventilation. Tolerating tube feeds. 09/05: Remains sedated, orally intubated on mechanical ventilation. Tolerating tube feeds. 09/06: Breathes over vent despite sedation. Withdraws limbs. 09/07: Remains sedated, orally intubated on mechanical ventilation. Tolerating tube feeds. 09/08: Will work toward extubation when OK with Neurosurgery. 09/09: Remains sedated, orally intubated on mechanical ventilation. Tolerating tube feeds. 09/10: Remains sedated, orally intubated on mechanical ventilation. Tolerating tube feeds. 09/11: Remains drowsy, orally intubated on mechanical ventilation. Tolerating tube feeds. Daily C Pap trials ongoing. Remains on nicardipine drip. 09/12: Remains drowsy, encephalopathic, orally intubated on mechanical ventilation. Tolerating tube feeds. Daily C Pap trials ongoing. Remains on nicardipine drip. 09/13: Drowsy, arousable, orally intubated on mechanical ventilation. Tolerating C Pap trial. Awaiting PEG tube today 09/14: Afebrile. Tolerating tube feeds at 1.5 at 45 cc an hour/goal. Positive BM. Will need percutaneous tracheostomy currently a day #14. Status post PEG tube I Dr. Gilliam Subjective 09/15: Failed extubation yesterday due to stridor. Upon intubation area was edematous. Currently receiving Decadron 48 hours. Attempt extubation tomorrow versus tracheostomy on Sunday. She is awake she will intermittently follow commands. 09/16: Patient awake and alert, on commands. Currently on CPAP trials doing well. Plan for trial of extubation this afternoon. Patient noted to have elevated glucose levels will DC vital high protein in place patient on Glucerna tube feeds. Per colleague Dr. Rodas, will restart DVT prophylaxis today, has been okayed by Neurosurgery. Objective Vital Signs Date Time Temp Pulse Resp B/P (MAP) Pulse Ox O2 Delivery O2 Flow Rate FiO2 09/16/17 08:05 40 09/16/17 08:03 100 09/16/17 06:00 70 09/16/17 04:00 98.6 18 153/77 (102) 09/14/17 10:00 Nasal Cannula 4 Intake and Output 09/16/17 09/16/17 09/17/17 08:00 16:00 00:00 Intake Total 724 ml Output Total 1075 ml Balance -351 ml Result Diagram: 09/16/17 0429 09/16/17 0429 Imaging Last Impressions Chest X-Ray 09/16/17599 Signed Impressions: Service Date/Time: Saturday, September 16, 2017 04:54 - CONCLUSION: Persistent bilateral patchy pulmonary opacity, decreased on the left. Leonardo Muse MD Head CT 09/10/17599 Signed Impressions: Service Date/Time: Sunday, September 10, 2017 04:17 - CONCLUSION: Stable evolving intracranial hemorrhage with no new acute findings. Nacho Krishnan MD Abdomen X-Ray 09/01/17 Signed Impressions: Service Date/Time: Friday, September 01, 2017 18:29 - CONCLUSION: Nasogastric tube coiled in the stomach with the tip projecting towards the GE junction. Migue Cuenca Jr., MD Maxillofacial CT 08/30/17 Signed Impressions: Service Date/Time: August 15:13 - CONCLUSION: 1. There is a minimally depressed right nasal bone fracture with adjacent soft tissue swelling. No other fracture is visualized. 2. Please refer to head CT report for description of the right subdural hematoma. Nacho Buckley MD Lumbar Spine CT 08/30/17 Signed Impressions: Service Date/Time: August 17:59 - CONCLUSION: Negative examination. Alec Latham MD Cervical Spine CT 08/30/17 Signed Impressions: Service Date/Time: August 15:12 - CONCLUSION: 1. No acute fracture or subluxation. Skinny Muñiz MD Last Impressions Chest X-Ray 09/14/17 Signed Impressions: Service Date/Time: Thursday, September 14, 2017 11:33 - CONCLUSION: 1. ET tube right main bronchus with reexpansion right lower lobe. 2. Developing opacity left base.. Stu Huynh MD FACR Head CT 09/10/17599 Signed Impressions: Service Date/Time: Sunday, September 10, 2017 04:17 - CONCLUSION: Stable evolving intracranial hemorrhage with no new acute findings. Nacho Krishnan MD Abdomen X-Ray 09/01/17 Signed Impressions: Service Date/Time: Friday, September 01, 2017 18:29 - CONCLUSION: Nasogastric tube coiled in the stomach with the tip projecting towards the GE junction. Migue Cuenca Jr., MD Maxillofacial CT 08/30/17 0000 Signed Impressions: Service Date/Time: August 15:13 - CONCLUSION: 1. There is a minimally depressed right nasal bone fracture with adjacent soft tissue swelling. No other fracture is visualized. 2. Please refer to head CT report for description of the right subdural hematoma. Nacho Buckley MD Lumbar Spine CT 08/30/17 0000 Signed Impressions: Service Date/Time: August 17:59 - CONCLUSION: Negative examination. Alec Latham MD Cervical Spine CT 08/30/17 0000 Signed Impressions: Service Date/Time: August 15:12 - CONCLUSION: 1. No acute fracture or subluxation. Skinny Muñiz MD Objective Remarks GENERAL: 57-year-old AA female, resting in bed orotracheally intubated, awake responsive following commands SKIN: Warm and dry. Abrasions to the right cheek and chin with evolving ecchymoses HEAD: Status post right craniotomy with subdural, scalp drain in place EYES: Pupils equal and round about 3 mm bilaterally and reactive. Right eyelid swollen, protuberant globe. No scleral icterus. No injection or drainage. ENT: No nasal bleeding or discharge. Mucous membranes pink and moist. NECK: Trachea midline. Orally intubated. CARDIOVASCULAR: RRR. S1, S2. No S4. Without murmur. No JVD. RESPIRATORY: Clear to auscultation. Breath sounds equal bilaterally. No wheezes, rales or rhonchi GASTROINTESTINAL: Abdomen soft, obese non-tender, nondistended. PEG tube site is clean dry and intact without erythema. Bowel sounds are hypoactive MUSCULOSKELETAL: Extremities without significant peripheral edema. No obvious deformities. Well perfused. NEUROLOGICAL: Drowsy/encephalopathic, orally intubated, arouses on command. Moving extremities 4 on command. Date of Insertion: Sep 01, 2017 Line: Central Venous Catheter Side: Left Location: Internal, Jugular A/P Assessment and Plan Neuro/Psych: s/p right craniotomy with evacuation of subdural hematoma 2.6 cm right parietal/temporal intracranial hemorrhage, 0.9 cm right subdural hemorrhage and bilateral subarachnoid hemorrhage Right subdural hematoma - 1.6 cm fronto temporal with a 3 mm right to left shift Right closed nondisplaced nasal fracture Schizoaffective disorder Bipolar disorder Depression Seizure disorder NOS Currently on as needed propofol/fentanyl drips for sedation/analgesia while intubated Goal of RASS -[address] brain 08/30 revealed a right frontal temporal subdural hematoma 1.6 cm thickness with a 3 mm right to left shift. Nondisplaced right nasal bone fracture. CT brain 08/31 revealed 2.6 cm right parietal intracranial hemorrhage, 0.9 cm right subdural hemorrhage and bilateral subarachnoid hemorrhage CT brain 09/01 revealed stable intraparenchymal hemorrhage improving subarachnoid hemorrhage at the convex CT Head 09/05 with stable areas of ICH/ SAH. EEG 08/31 revealed generalized slowing/encephalopathy. Disruption right side secondary to intraparenchymal hemorrhage. Levetiracetam 500 mg IV twice a day for seizure prophylaxis 7 days has been discontinued Resumed home dose of valproic acid 250mg BID via PEG tube Goal keep systolic blood pressure less than 140. Neurochecks Head of bed at 30 Stopped hypertonic saline 09/05 per neurosurgery. Evaluated by Dr. Aiken/neurosurgery Continue doxepin 10 mg by PEG tube daily Continue acetaminophen 650 mg every 6 hours when necessary fever Holding loratadine 10 mg by PEG tube daily Currently morphine sulfate 2-4 mg every 4 hours as needed for pain CV: Hypertension Dyslipidemia Increase metoprolol 100 mg via PEG tube Q6hrly for hypertension on 09/12. Prinivil 20mg BID. Amlodipine 10 mg PEG tube daily Continue isosorbide dinitrate 10 mg 3 times a day with hydralazine 100 mg every 8 hours Clonidine patch 0.3 mg every 7 days added 09/11 As needed labetalol, hydralazine, to keep systolic blood pressure less than 140. Continue atorvastatin 40 mg by mouth daily for dyslipidemia Resp: PRVC 16/500/11/16/39, nightly CPAP trials 03/26 40% FI02 Ventilator bundle Albuterol/ipratropium aerosols every 6 hours with albuterol aerosols every 2 hours prn dyspnea Spontaneous breathing trials daily Chest x-ray revealed bilateral lower lobe atelectasis left greater than right. Planned SBT trial with parameters for possible trial of extubation today, if unsuccessful plan for percutaneous tracheostomy in the near future GI: Continue tube feeding with vital 1.5 goal 50 cc. Status post PEG tube Dr. Gilliam 09/13 Famotidine 20 mg by PEG twice a day for GI prophylaxis Docusate sodium/senna t twice a day and polyethylene glycol twice a day for bowel regimen. Continue lactulose 30 cc twice a day as well : Incontinence Porter catheter if indicated for accurate I's and O's in a critically ill patient Continue Tolterodine 2 mg by mouth daily. Endo: Diabetes History of hypothyroidism/thyroid nodules Holding metformin 1000 mg daily and Linagliptin 5 mg daily for diabetes. Sliding-scale insulin with Accu-Cheks to maintain euglycemia Increase Insulin Detemir to 20 units twice a day Renal: History of renal cell carcinoma status post right nephrectomy KVO IVF 09/05 Obtain Porter patient on IV diuretics Monitor urine output Accurate I's and O's Heme: Normocytic anemia Elevated PTT Thrombocytopenia Monitor CBC daily. Follow trends Does not meet transfusion thresholds at this time ID: Patient noted to have fevers and left shift with bands noted on peripheral smear. Obtained allen cultures and initiated empiric antibiotic coverage with IV Zosyn 09/09, discontinued on 09/11 as urine culture growing Escherichia coli sensitive to Rocephin. De-escalated to Rocephin 1 g IV daily starting 09/11. Management per infectious disease FEN: Hypophosphatemia Hypokalemia Replace electrolytes as clinically indicated per ICU electrolyte protocol. Resumed cholecalciferol 1000 U daily. MSK: Osteoarthritis Physical therapy evaluate and treat Access -Left IJ CVL Prophylaxis - GI famotidine - DVT- SCD. Per neurosurgery initiate heparin 5000 u BID (09/16) Level 2 follow-up Physician Audelia Carmichael MD Sep 16, 2017 09:55
[2017-09-16] MEDS: DOXEPIN HCL 10 MG CAP PO SCH (20:31)
[2017-09-16] MEDS: ATORVASTATIN 40 MG TAB PO SCH (20:32)
[2017-09-16] MEDS: HEPARIN SODIUM - SQ 10,000 UNITS/ML VIAL SQ SCH (21:55)
[2017-09-17] VITALS (19 sets, daily range): BP systolic 117–157; BP diastolic 68–75; PULSE 50–66; RESP 16–22; TEMP 98.7–99.2; O2SAT 96–100
[2017-09-17] MEDS: hydrALAZINE HCL 100 MG TAB PO SCH ×3 (01:57→18:40)
[2017-09-17] MEDS: CHLORHEXIDINE GLUCONATE 2 % 1 PACK (2 CLOTHS) TOP SCH (04:00)
--- NOTE | 2017-09-17 04:24 | RADRPT ---
EXAM DATE/TIME: 09/17/2017 03:12 [facility] COMPARISON: CHEST SINGLE AP, September 16, 2017, 4:54. INDICATIONS : Evaluate for pnuemonia- Respiratory failure MEDICAL HISTORY : None. SURGICAL HISTORY : None. ENCOUNTER: Subsequent ACUITY: 1 week PAIN SCORE: Non-responsive. LOCATION: Bilateral chest FINDINGS: The cardiac silhouette is enlarged in transverse diameter. The lungs are free of acute parenchymal op acity. No effusions are identified. Endotracheal tube is in good position above the zara. There is subsegmental atelectasis in the right base. CONCLUSION: 1. Cardiomegaly 2. Subsegmental atelectasis right base. There has been no significant change when compared to the jeannine or exam. Darius Harris MD on September 17, 2017 at 4:21 Board Certified Radiologist. This report was verified electronically.
[2017-09-17] MEDS: RESP: ALBUTEROL 2.5 MG/IPRATROPIUM 0.5 MG NEB (SCH) NEB ×4 (04:39→21:58)
[2017-09-17 05:48] LABS: AUTOMATED NEUTROPHIL # 8.3 TH/MM3 (1.8-7.7); BASOPHIL # 0.1 TH/MM3 (0-0.2); BASOPHIL % 0.7 % (0.0-2.0); HEMATOCRIT 26.3 % (35.0-46.0); LYMPH % 25.8 % (9.0-44.0); LYMPHOCYTE # 3.2 TH/MM3 (1.0-4.8); MEAN CELL VOLUME 82.9 FL (80.0-100.0); MEAN CORPUSCULAR HEMOGLOBIN 26.5 PG (27.0-34.0); MONO % 6.7 % (0.0-8.0); NEUT % 66.8 % (16.0-70.0); PLATELET COUNT 594 TH/MM3 (150-450); RED BLOOD COUNT 3.17 MIL/MM3 (4.00-5.30); RED CELL DISTRIBUTION WIDTH 15.2 % (11.6-17.2); WHITE BLOOD COUNT 12.4 TH/MM3 (4.0-11.0)
[2017-09-17 06:00] LABS: HEMO FLAGS AUTO DIFF
[2017-09-17] MEDS: INSULIN NovoLIN REGULAR SUPPLEMENTAL SCALE SQ SCH ×4 (06:00→18:00)
[2017-09-17] MEDS: METOPROLOL TARTRATE 100 MG TAB PO SCH ×5 (06:00→23:05)
[2017-09-17 06:03] LABS: INTERNATIONAL NORMALIZED RATIO 1.1 RATIO; PROTHROMBIN TIME - PATIENT 11.9 SEC (9.8-11.6)
[2017-09-17 06:10] LABS: POTASSIUM 3.6 MEQ/L (3.5-5.1)
[2017-09-17] MEDS: ISOSORBIDE DINITRATE 10 MG TAB PO SCH ×3 (06:23→22:45)
[2017-09-17] MEDS: ARTIFICIAL TEARS OPTH SOLN 15 ML BTL EACH EYE SCH ×3 (06:23→22:00)
[2017-09-17 07:57] LABS: BANDS 3 % (0-6); CORRECTED NUCLEATED RBC 2 /100 WBC (0-0); MYELOCYTES 1 % (0-0); NEUTROPHIL # MANUAL DIFF 8.8 TH/MM3 (1.8-7.7); PLATELET ESTIMATE SMEAR HIGH (NORMAL); POLYS (SEG NEUTROPHILS) 67 % (16-70); WBC DIFF SAMPLE 100
[2017-09-17 07:58] LABS: OVALOCYTES 1+ (NORMAL)
[2017-09-17 07:59] LABS: ACANTHOCYTES OCC (NORMAL); PLATELET MORPHOLOGY NORMAL (NORMAL); SCAN/DIFF FINAL DIFF MANUAL
[2017-09-17] MEDS: CHLORHEXIDINE 0.12% (ORAL KIT) 15 ML CUP MT SCH ×2 (08:00→20:00)
--- NOTE | 2017-09-17 08:01 | HHI.PR ---
Neuropsych Emotional Emotional: UnabletoAssess: Emotional, Anxious/Fearful, Depressed/Sad, Hostile/ Resentful, Irritable/Angry/Frustrate, Labile, Constricted/Blunted Psychosocial Psychosocial: Severe: Psychosocial, Family/Other Adjustment, Realistic Expectation, Unable to Asses: Self-Esteem/Confidence Progress Notes/Response to Tx Contents of Sessions: Adjustment, Level of Consciousness Time with Patient: 15 minutes Premorbid psychological status Premorbid Cognitive, Emotional and Behavioral Status: Unable to Assess. The patient's history is unclear other than she had prior psychiatric diagnoses in the past. Behavioral Reactions of Patient and Family/Support System: Unable to Assess. The patients family is likely experiencing ongoing issues of adjustment given the nature of the injury, and this aspect of recovery will require ongoing monitoring. Emotional/Behavioral Status of Patient and Family/Support System: Unable to Assess. Pertinent issues, if appropriate to this patients clinical care, are described in detail above. Maximizing acute care outcome It is recommended that the patient be monitored for emergent behavioral impulsivity as the medical condition evolves. This patients neuropathological challenges may limit their rehabilitation potential going forward, and these challenges will require specialized therapeutic skills to maximize outcome. Additionally, the patients family is experiencing ongoing issues of adjustment given the traumatic nature of the injury, and they may benefit from ongoing psychological assistance. Anticipated Problems Ongoing areas of concern will include behavioral impulsivity, lack of insight and judgment, which is expected to improve with time and treatment. Presently , the patient remains intubated and sedated. Treatment Plan This clinician will continue to follow with you throughout the course of this patients acute care treatment, and I will be available to meet with the patient s family/support system to facilitate their understanding and the ongoing care of their family member. The goals of neuropsychological intervention shall be both educational and supportive to the family/support system as is deemed clinically appropriate. [facility] Level: V:Confused-non agitated Impression This 57 year old woman is s/p TBI 2T fall on 08/31/2017, who is now intubated and sedated. She has a history of schizoaffective disorder prior to her TBI. Diagnosis: (1) Major neurocognitive disorder as late effect of traumatic brain injury without behavioral disturbance (2) Schizoaffective disorder Status: Acute Progress Note Narrative Ongoing follow-up of patient seen bedside. This is day 18 post injury. The patient is awake and alert, following commands. She is off sedation with plan to extubate. She appears at [facility] presently. No other neurobehavioral issues at this time in spite of her lengthy psychiatric history. I will continue to follow. Problem Qualifiers (1) Schizoaffective disorder: Qualified Codes: F25.0 - Schizoaffective disorder, bipolar type Bhavik Crabtree PhD Sep 17, 2017 8:01 am
[2017-09-17] MEDS: LACTULOSE SYRUP 20 GM/30 ML CUP PO SCH ×2 (09:00→20:22)
[2017-09-17] MEDS: SODIUM CHLORIDE 0.9% FLUSH 10 ML FLUSH IV FLUSH SCH ×3 (09:00→20:20)
[2017-09-17] MEDS: POLYETHYLENE GLYCOL 17 GM PKG PO SCH ×2 (09:00→20:21)
[2017-09-17] MEDS: SENNOSIDES SYRUP 8.8 MG/5 ML CUP PO SCH ×2 (09:57→20:21)
[2017-09-17] MEDS: DOCUSATE SODIUM 100 MG/10 ML UDC PO SCH ×2 (09:57→20:20)
[2017-09-17] MEDS: FUROSEMIDE 40 MG TAB PO SCH (09:58)
[2017-09-17] MEDS: CHOLECALCIFEROL (VIT D3) 1000 UNIT TAB PO SCH (09:58)
[2017-09-17] MEDS: HEPARIN SODIUM - SQ 10,000 UNITS/ML VIAL SQ SCH ×2 (09:59→20:21)
[2017-09-17] MEDS: FAMOTIDINE 20 MG TAB NG SCH ×2 (09:59→20:20)
[2017-09-17] MEDS: TOLTERODINE TARTRATE 2 MG TAB PO SCH (09:59)
[2017-09-17] MEDS: VALPROIC ACID SYRUP 250 MG/5 ML UDC OG-TUBE SCH ×2 (09:59→20:21)
[2017-09-17] MEDS: cefTRIAXone INJ 1,000 MG in SODIUM CHLORIDE 0.9% INJ 100 ML IV SCH (10:00)
[2017-09-17] MEDS: LISINOPRIL 20 MG TAB PO SCH ×2 (10:01→20:20)
[2017-09-17] MEDS: INSULIN DETEMIR 100 UNITS/ML VIAL SQ SCH ×2 (10:01→20:21)
[2017-09-17] MEDS: POTASSIUM PHOSPHATE INJ 30 MMOL in SODIUM CHLOR 0.9% 250 ML INJ 250 ML IV PRN (13:44)
--- NOTE | 2017-09-17 13:58 | HHI.CCPN ---
Subjective Remarks/Hospital Course 57-year-old AA female . Date of admission 08/30/2017. Past medical history includes schizoaffective/bipolar, depression, seizure disorder, hypertension, dyslipidemia, diabetes and allergic rhinitis. She is not on any blood thinners or aspirin. This patient was walking from [employer] in approximately 6 AM this morning when she suffered a fall and landed on the right side of her face.. She states she slipped in the wet grass hitting her face on the concrete. No loss of consciousness. Not seizure activity noted. Not tongue biting. No incontinence of stool or urine. 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 Patient states that she's been having a headache and right-sided facial pain since. 08/30 CT of the brain showed a right frontotemporal subdural hematoma 1.6 cm with a 3 mm right to left shift. Maxillofacial CT revealed a nondisplaced right nasal fracture. CT spine negative. CBC showed normocytic anemia. BMP is pending. Elevated PTT coags at 33. Patient was loaded with 500 mg levetiracetam, given as needed for elevated blood pressure stabilized in the ED. Neurosurgical consultation was requested with Dr. Aiken. 08/31: Afebrile. CT brain revealed increased diameter right-sided subdural hematoma up to 1.9 cm. Shift is 1 mm right to left. Positive headache. No seizure activity. No real focal neurological deficits. 09/01: Patient subjective a weak left upper and lower extremity greater than right. Mumbling words. Stat CT brain revealed 2.6 cm image right intraparenchymal hemorrhage on the right temporal parietal region, 0.9 cm right cerebellar hemorrhage and bilateral subarachnoid hemorrhage convex's. Notified Dr. Aiken. Patient was intubated for airway protection and central line placed for hypertonic saline 09/02: Tmax 99.9. Improved subarachnoid hemorrhage. Stable right intraparenchymal hemorrhages. Potassium and phosphorus been replaced. No bowel movement. 09/03: Currently afebrile. Remains on propofol and fentanyl drips for sedation. Tolerating tube feeds at goal. Arousable with open eyes but not following commands currently. 09/04: Remains sedated, orally intubated on mechanical ventilation. Tolerating tube feeds. 09/05: Remains sedated, orally intubated on mechanical ventilation. Tolerating tube feeds. 09/06: Breathes over vent despite sedation. Withdraws limbs. 09/07: Remains sedated, orally intubated on mechanical ventilation. Tolerating tube feeds. 09/08: Will work toward extubation when OK with Neurosurgery. 09/09: Remains sedated, orally intubated on mechanical ventilation. Tolerating tube feeds. 09/10: Remains sedated, orally intubated on mechanical ventilation. Tolerating tube feeds. 09/11: Remains drowsy, orally intubated on mechanical ventilation. Tolerating tube feeds. Daily C Pap trials ongoing. Remains on nicardipine drip. 09/12: Remains drowsy, encephalopathic, orally intubated on mechanical ventilation. Tolerating tube feeds. Daily C Pap trials ongoing. Remains on nicardipine drip. 09/13: Drowsy, arousable, orally intubated on mechanical ventilation. Tolerating C Pap trial. Awaiting PEG tube today 09/14: Afebrile. Tolerating tube feeds at 1.5 at 45 cc an hour/goal. Positive BM. Will need percutaneous tracheostomy currently a day #14. Status post PEG tube I Dr. Gilliam Subjective 09/15: Failed extubation yesterday due to stridor. Upon intubation area was edematous. Currently receiving Decadron 48 hours. Attempt extubation tomorrow versus tracheostomy on Sunday. She is awake she will intermittently follow commands. 09/16: Patient awake and alert, on commands. Currently on CPAP trials doing well. Plan for trial of extubation this afternoon. Patient noted to have elevated glucose levels will DC vital high protein in place patient on Glucerna tube feeds. Per colleague Dr. Rodas, will restart DVT prophylaxis today, has been okayed by Neurosurgery. 09/17: Patient continues to be on sedation alert and following commands CPAP trials underway attempted SBT parameters yesterday which patient failed. Will continue CPAP trials today for possible trial of extubation. Attempted to contact son regarding possibility of tracheostomy placement, thus far unsuccessful in contacting Mr. Alejandre. Objective Vital Signs Date Time Temp Pulse Resp B/P (MAP) Pulse Ox O2 Delivery O2 Flow Rate FiO2 09/17/17 11:35 98 40 09/17/17 06:00 58 09/17/17 04:00 99.2 20 157/70 (99) 09/14/17 10:00 Nasal Cannula 4 Intake and Output 09/17/17 09/17/17 09/18/17 08:00 16:00 00:00 Intake Total 528 ml Output Total 650 ml Balance -122 ml Result Diagram: 09/17/1743009/17/17 043 Imaging Last Impressions Chest X-Ray 09/16/17599 Signed Impressions: Service Date/Time: Saturday, September 16, 2017 04:54 - CONCLUSION: Persistent bilateral patchy pulmonary opacity, decreased on the left. Leonardo Muse MD Head CT 09/10/17599 Signed Impressions: Service Date/Time: Sunday, September 10, 2017 04:17 - CONCLUSION: Stable evolving intracranial hemorrhage with no new acute findings. Nacho Krishnan MD Abdomen X-Ray 09/01/17 Signed Impressions: Service Date/Time: Friday, September 01, 2017 18:29 - CONCLUSION: Nasogastric tube coiled in the stomach with the tip projecting towards the GE junction. Migue Cuenca Jr., MD Maxillofacial CT 08/30/17 Signed Impressions: Service Date/Time: August 15:13 - CONCLUSION: 1. There is a minimally depressed right nasal bone fracture with adjacent soft tissue swelling. No other fracture is visualized. 2. Please refer to head CT report for description of the right subdural hematoma. Nacho Buckley MD Lumbar Spine CT 08/30/17 0000 Signed Impressions: Service Date/Time: August 17:59 - CONCLUSION: Negative examination. Alec Latham MD Cervical Spine CT 08/30/17 0000 Signed Impressions: Service Date/Time: August 15:12 - CONCLUSION: 1. No acute fracture or subluxation. Skinny Muñiz MD Last Impressions Chest X-Ray 09/14/17 0000 Signed Impressions: Service Date/Time: Thursday, September 14, 2017 11:33 - CONCLUSION: 1. ET tube right main bronchus with reexpansion right lower lobe. 2. Developing opacity left base.. Stu Huynh MD FACR Head CT 09/10/17599 Signed Impressions: Service Date/Time: Sunday, September 10, 2017 04:17 - CONCLUSION: Stable evolving intracranial hemorrhage with no new acute findings. Nacho Krishnan MD Abdomen X-Ray 09/01/17 0000 Signed Impressions: Service Date/Time: Friday, September 01, 2017 18:29 - CONCLUSION: Nasogastric tube coiled in the stomach with the tip projecting towards the GE junction. Migue Cuenca Jr., MD Maxillofacial CT 08/30/17 0000 Signed Impressions: Service Date/Time: August 15:13 - CONCLUSION: 1. There is a minimally depressed right nasal bone fracture with adjacent soft tissue swelling. No other fracture is visualized. 2. Please refer to head CT report for description of the right subdural hematoma. Nacho Buckley MD Lumbar Spine CT 08/30/17 0000 Signed Impressions: Service Date/Time: August 17:59 - CONCLUSION: Negative examination. Alec Latham MD Cervical Spine CT 08/30/17 0000 Signed Impressions: Service Date/Time: August 15:12 - CONCLUSION: 1. No acute fracture or subluxation. Skinny Muñiz MD Objective Remarks GENERAL: 57-year-old AA female, resting in bed orotracheally intubated, awake responsive following commands SKIN: Warm and dry. Abrasions to the right cheek and chin with evolving ecchymoses HEAD: Status post right craniotomy with subdural, scalp drain in place EYES: Pupils equal and round about 3 mm bilaterally and reactive. Right eyelid swollen, protuberant globe. No scleral icterus. No injection or drainage. ENT: No nasal bleeding or discharge. Mucous membranes pink and moist. NECK: Trachea midline. Orally intubated. CARDIOVASCULAR: RRR. S1, S2. No S4. Without murmur. No JVD. RESPIRATORY: Clear to auscultation. Breath sounds equal bilaterally. No wheezes, rales or rhonchi GASTROINTESTINAL: Abdomen soft, obese non-tender, nondistended. PEG tube site is clean dry and intact without erythema. Bowel sounds are hypoactive MUSCULOSKELETAL: Extremities without significant peripheral edema. No obvious deformities. Well perfused. NEUROLOGICAL: Drowsy/encephalopathic, orally intubated, arouses on command. Moving extremities 4 on command. Date of Insertion: Sep 01, 2017 Line: Central Venous Catheter Side: Left Location: Internal, Jugular A/P Assessment and Plan Neuro/Psych: s/p right craniotomy with evacuation of subdural hematoma 2.6 cm right parietal/temporal intracranial hemorrhage, 0.9 cm right subdural hemorrhage and bilateral subarachnoid hemorrhage Right subdural hematoma - 1.6 cm fronto temporal with a 3 mm right to left shift Right closed nondisplaced nasal fracture Schizoaffective disorder Bipolar disorder Depression Seizure disorder NOS Currently on propofol/fentanyl infusions PRN for sedation/analgesia while intubated Goal of RASS -[address] brain 08/30 revealed a right frontal temporal subdural hematoma 1.6 cm thickness with a 3 mm right to left shift. Nondisplaced right nasal bone fracture. CT brain 08/31 revealed 2.6 cm right parietal intracranial hemorrhage, 0.9 cm right subdural hemorrhage and bilateral subarachnoid hemorrhage CT brain 09/01 revealed stable intraparenchymal hemorrhage improving subarachnoid hemorrhage at the convex CT Head 09/05 with stable areas of ICH/ SAH. EEG 08/31 revealed generalized slowing/encephalopathy. Disruption right side secondary to intraparenchymal hemorrhage. Levetiracetam 500 mg IV twice a day for seizure prophylaxis 7 days has been discontinued Resumed home dose of valproic acid 250mg BID via PEG tube Goal keep systolic blood pressure less than 140. Neurochecks Head of bed at 30 Stopped hypertonic saline 09/05 per neurosurgery. Evaluated by Dr. Aiken/neurosurgery Continue doxepin 10 mg by PEG tube daily Continue acetaminophen 650 mg every 6 hours when necessary fever Holding loratadine 10 mg by PEG tube daily Currently morphine sulfate 2-4 mg every 4 hours as needed for pain CV: Hypertension Dyslipidemia Increase metoprolol 100 mg via PEG tube Q6hrly for hypertension on 09/12. Prinivil 20mg BID. Amlodipine 10 mg PEG tube daily Continue isosorbide dinitrate 10 mg 3 times a day with hydralazine 100 mg every 8 hours Clonidine patch 0.3 mg every 7 days added 09/11 As needed labetalol, hydralazine, to keep systolic blood pressure less than 140. Continue atorvastatin 40 mg by mouth daily for dyslipidemia Resp: PRVC 16//11/16/39, nightly CPAP trials 03/26 40% FI02 Ventilator bundle Albuterol/ipratropium aerosols every 6 hours with albuterol aerosols every 2 hours prn dyspnea Spontaneous breathing trials daily Chest x-ray revealed bilateral lower lobe atelectasis left greater than right. Planned SBT trial with parameters for possible trial of extubation today, if unsuccessful plan for percutaneous tracheostomy in the near future GI: Continue tube feeding with vital 1.5 goal 50 cc. Status post PEG tube Dr. Gilliam 09/13 Famotidine 20 mg by PEG twice a day for GI prophylaxis Docusate sodium/senna t twice a day and polyethylene glycol twice a day for bowel regimen. Continue lactulose 30 cc twice a day as well : Incontinence Porter catheter if indicated for accurate I's and O's in a critically ill patient Continue Tolterodine 2 mg by mouth daily. Endo: Diabetes History of hypothyroidism/thyroid nodules Holding metformin 1000 mg daily and Linagliptin 5 mg daily for diabetes. Sliding-scale insulin with Accu-Cheks to maintain euglycemia Increase Insulin Detemir to 20 units twice a day Renal: History of renal cell carcinoma status post right nephrectomy KVO IVF 09/05 Maintain Porter patient on IV diuretics Monitor urine output Accurate I's and O's Heme: Normocytic anemia Elevated PTT Thrombocytopenia Monitor CBC daily. Follow trends Does not meet transfusion thresholds at this time ID: Patient noted to have fevers and left shift with bands noted on peripheral smear. Obtained allen cultures and initiated empiric antibiotic coverage with IV Zosyn 09/09, discontinued on 09/11 as urine culture growing Escherichia coli sensitive to Rocephin. De-escalated to Rocephin 1 g IV daily starting 09/11. Management per infectious disease FEN: Hypophosphatemia Hypokalemia Replace electrolytes as clinically indicated per ICU electrolyte protocol. Resumed cholecalciferol 1000 U daily. MSK: Osteoarthritis Physical therapy evaluate and treat Access -Left IJ CVL Prophylaxis - GI famotidine - DVT- SCD. Per neurosurgery initiate heparin 5000 u BID (09/16) Dispo: Attempted to contact son Oscar Alejandre [phone], unsuccessful, to update on patient's medical status and plan for possible percutaneous tracheostomy, Level 2 follow-up Physician Audelia Carmichael MD Sep 17, 2017 13:58
[2017-09-17] MEDS: ATORVASTATIN 40 MG TAB PO SCH (20:20)
[2017-09-17] MEDS: DOXEPIN HCL 10 MG CAP PO SCH (20:21)
[2017-09-18] VITALS (17 sets, daily range): BP systolic 103–157; BP diastolic 59–79; PULSE 53–80; RESP 16–31; TEMP 99–100; O2SAT 99–100
[2017-09-18] MEDS: hydrALAZINE HCL 100 MG TAB PO SCH ×3 (01:18→17:21)
[2017-09-18] MEDS: RESP: ALBUTEROL 2.5 MG/IPRATROPIUM 0.5 MG NEB (SCH) NEB ×2 (03:54→09:13)
[2017-09-18] MEDS: CHLORHEXIDINE GLUCONATE 2 % 1 PACK (2 CLOTHS) TOP SCH (04:00)
[2017-09-18 05:14] LABS: HEMATOCRIT 27.1 % (35.0-46.0); MEAN CELL VOLUME 82.6 FL (80.0-100.0); MEAN CORPUSCULAR HEMOGLOBIN 26.9 PG (27.0-34.0); MEAN CORPUSCULAR HGB CONC 32.6 % (32.0-36.0); PLATELET COUNT 527 TH/MM3 (150-450); RED BLOOD COUNT 3.28 MIL/MM3 (4.00-5.30); RED CELL DISTRIBUTION WIDTH 15.3 % (11.6-17.2); REVIEW FLAG FINAL; WHITE BLOOD COUNT 11.2 TH/MM3 (4.0-11.0)
[2017-09-18 05:39] LABS: MAGNESIUM 1.9 MG/DL (1.5-2.5); POTASSIUM 3.7 MEQ/L (3.5-5.1)
[2017-09-18] MEDS: INSULIN NovoLIN REGULAR SUPPLEMENTAL SCALE SQ SCH ×4 (05:53→17:49)
[2017-09-18] MEDS: METOPROLOL TARTRATE 100 MG TAB PO SCH ×3 (05:53→17:22)
[2017-09-18] MEDS: ARTIFICIAL TEARS OPTH SOLN 15 ML BTL EACH EYE SCH ×3 (06:00→21:03)
[2017-09-18] MEDS: ISOSORBIDE DINITRATE 10 MG TAB PO SCH ×3 (06:14→21:02)
--- NOTE | 2017-09-18 08:01 | HHI.PR ---
Neuropsych Emotional Emotional: UnabletoAssess: Emotional, Anxious/Fearful, Depressed/Sad, Hostile/ Resentful, Irritable/Angry/Frustrate, Labile, Constricted/Blunted Behavior Behavior: Unable to Asses: Behavior, Coping/Acceptance, Cooperative w/ Treatment, Motivation, Frustration Tolerance/Mason, Impulsive/Agitated, Suicidal/ Homicidal Risk Cognitive Cognitive: Unable to Asses: Cognitive, Attention/Concentration, Confused/ Orientation, Insight/Awareness, Judgement/Problem-Solving, Memory Psychosocial Psychosocial: Severe: Psychosocial, Family/Other Adjustment, Realistic Expectation, Unable to Asses: Self-Esteem/Confidence Progress Notes/Response to Tx Contents of Sessions: Adjustment, Level of Consciousness Time with Patient: 15 minutes Premorbid psychological status Premorbid Cognitive, Emotional and Behavioral Status: Unable to Assess. The patient's history is unclear other than she had prior psychiatric diagnoses in the past. Behavioral Reactions of Patient and Family/Support System: Unable to Assess. The patients family is likely experiencing ongoing issues of adjustment given the nature of the injury, and this aspect of recovery will require ongoing monitoring. Emotional/Behavioral Status of Patient and Family/Support System: Unable to Assess. Pertinent issues, if appropriate to this patients clinical care, are described in detail above. Maximizing acute care outcome It is recommended that the patient be monitored for emergent behavioral impulsivity as the medical condition evolves. This patients neuropathological challenges may limit their rehabilitation potential going forward, and these challenges will require specialized therapeutic skills to maximize outcome. Additionally, the patients family is experiencing ongoing issues of adjustment given the traumatic nature of the injury, and they may benefit from ongoing psychological assistance. Anticipated Problems Ongoing areas of concern will include behavioral impulsivity, lack of insight and judgment, which is expected to improve with time and treatment. Presently , the patient remains intubated and sedated. Treatment Plan This clinician will continue to follow with you throughout the course of this patients acute care treatment, and I will be available to meet with the patient s family/support system to facilitate their understanding and the ongoing care of their family member. The goals of neuropsychological intervention shall be both educational and supportive to the family/support system as is deemed clinically appropriate. [facility] Level: V:Confused-non agitated Impression This 57 year old woman is s/p TBI 2T fall on 08/31/2017, who is now intubated and sedated. She has a history of schizoaffective disorder prior to her TBI. Diagnosis: (1) Major neurocognitive disorder as late effect of traumatic brain injury without behavioral disturbance (2) Schizoaffective disorder Status: Acute Progress Note Narrative Ongoing follow-up of patient seen bedside. This is day 19 post injury. The patient remains intubated and lightly sedated. She follows commands. There have been no neurobehavioral issues that have presented thus far, and she appears a [place]. In addition to sedating medications, she is managed on valproic acid 250 BID. I will continue to follow. Problem Qualifiers (1) Schizoaffective disorder: Qualified Codes: F25.0 - Schizoaffective disorder, bipolar type Bhavik Crabtree PhD Sep 18, 2017 8:01 am
[2017-09-18] MEDS: CHLORHEXIDINE 0.12% (ORAL KIT) 15 ML CUP MT SCH ×2 (08:32→20:00)
[2017-09-18] MEDS: SENNOSIDES SYRUP 8.8 MG/5 ML CUP PO SCH ×2 (09:00→21:00)
[2017-09-18] MEDS: DOCUSATE SODIUM 100 MG/10 ML UDC PO SCH ×2 (09:00→21:00)
[2017-09-18] MEDS: LACTULOSE SYRUP 20 GM/30 ML CUP PO SCH ×2 (09:00→21:00)
[2017-09-18] MEDS: SODIUM CHLORIDE 0.9% FLUSH 10 ML FLUSH IV FLUSH SCH ×3 (09:00→21:00)
[2017-09-18] MEDS: TOLTERODINE TARTRATE 2 MG TAB PO SCH (09:05)
[2017-09-18] MEDS: HEPARIN SODIUM - SQ 10,000 UNITS/ML VIAL SQ SCH ×2 (09:06→21:03)
[2017-09-18] MEDS: FAMOTIDINE 20 MG TAB NG SCH ×2 (09:06→21:00)
[2017-09-18] MEDS: VALPROIC ACID SYRUP 250 MG/5 ML UDC OG-TUBE SCH ×2 (09:06→21:01)
[2017-09-18] MEDS: POLYETHYLENE GLYCOL 17 GM PKG PO SCH ×2 (09:07→21:00)
[2017-09-18] MEDS: LISINOPRIL 20 MG TAB PO SCH ×2 (09:07→21:02)
[2017-09-18] MEDS: FUROSEMIDE 40 MG TAB PO SCH (09:07)
[2017-09-18] MEDS: CHOLECALCIFEROL (VIT D3) 1000 UNIT TAB PO SCH (09:07)
[2017-09-18] MEDS: INSULIN DETEMIR 100 UNITS/ML VIAL SQ SCH ×2 (09:09→21:00)
[2017-09-18] MEDS: cefTRIAXone INJ 1,000 MG in SODIUM CHLORIDE 0.9% INJ 100 ML IV SCH (09:11)
[2017-09-18] MEDS: MORPHINE SULFATE 4 MG/ML INJ IV PUSH PRN ×3 (11:34→21:51)
[2017-09-18] MEDS: cloNIDine HCL 0.3 MG/24 HR PATCH T-DERMAL SCH (11:36)
--- NOTE | 2017-09-18 12:32 | HHI.CCPN ---
Subjective Remarks/Hospital Course 57-year-old AA female . Date of admission 08/30/2017. Past medical history includes schizoaffective/bipolar, depression, seizure disorder, hypertension, dyslipidemia, diabetes and allergic rhinitis. She is not on any blood thinners or aspirin. This patient was walking from [employer] in approximately 6 AM this morning when she suffered a fall and landed on the right side of her face.. She states she slipped in the wet grass hitting her face on the concrete. No loss of consciousness. Not seizure activity noted. Not tongue biting. No incontinence of stool or urine. 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 Patient states that she's been having a headache and right-sided facial pain since. 08/30 CT of the brain showed a right frontotemporal subdural hematoma 1.6 cm with a 3 mm right to left shift. Maxillofacial CT revealed a nondisplaced right nasal fracture. CT spine negative. CBC showed normocytic anemia. BMP is pending. Elevated PTT coags at 33. Patient was loaded with 500 mg levetiracetam, given as needed for elevated blood pressure stabilized in the ED. Neurosurgical consultation was requested with Dr. Aiken. 08/31: Afebrile. CT brain revealed increased diameter right-sided subdural hematoma up to 1.9 cm. Shift is 1 mm right to left. Positive headache. No seizure activity. No real focal neurological deficits. 09/01: Patient subjective a weak left upper and lower extremity greater than right. Mumbling words. Stat CT brain revealed 2.6 cm image right intraparenchymal hemorrhage on the right temporal parietal region, 0.9 cm right cerebellar hemorrhage and bilateral subarachnoid hemorrhage convex's. Notified Dr. Aiken. Patient was intubated for airway protection and central line placed for hypertonic saline 09/02: Tmax 99.9. Improved subarachnoid hemorrhage. Stable right intraparenchymal hemorrhages. Potassium and phosphorus been replaced. No bowel movement. 09/03: Currently afebrile. Remains on propofol and fentanyl drips for sedation. Tolerating tube feeds at goal. Arousable with open eyes but not following commands currently. 09/04: Remains sedated, orally intubated on mechanical ventilation. Tolerating tube feeds. 09/05: Remains sedated, orally intubated on mechanical ventilation. Tolerating tube feeds. 09/06: Breathes over vent despite sedation. Withdraws limbs. 09/07: Remains sedated, orally intubated on mechanical ventilation. Tolerating tube feeds. 09/08: Will work toward extubation when OK with Neurosurgery. 09/09: Remains sedated, orally intubated on mechanical ventilation. Tolerating tube feeds. 09/10: Remains sedated, orally intubated on mechanical ventilation. Tolerating tube feeds. 09/11: Remains drowsy, orally intubated on mechanical ventilation. Tolerating tube feeds. Daily C Pap trials ongoing. Remains on nicardipine drip. 09/12: Remains drowsy, encephalopathic, orally intubated on mechanical ventilation. Tolerating tube feeds. Daily C Pap trials ongoing. Remains on nicardipine drip. 09/13: Drowsy, arousable, orally intubated on mechanical ventilation. Tolerating C Pap trial. Awaiting PEG tube today 09/14: Afebrile. Tolerating tube feeds at 1.5 at 45 cc an hour/goal. Positive BM. Will need percutaneous tracheostomy currently a day #14. Status post PEG tube I Dr. Gilliam Subjective 09/15: Failed extubation yesterday due to stridor. Upon intubation area was edematous. Currently receiving Decadron 48 hours. Attempt extubation tomorrow versus tracheostomy on Sunday. She is awake she will intermittently follow commands. 09/16: Patient awake and alert, on commands. Currently on CPAP trials doing well. Plan for trial of extubation this afternoon. Patient noted to have elevated glucose levels will DC vital high protein in place patient on Glucerna tube feeds. Per colleague Dr. Rodas, will restart DVT prophylaxis today, has been okayed by Neurosurgery. 09/17: Patient continues to be on sedation alert and following commands CPAP trials underway attempted SBT parameters yesterday which patient failed. Will continue CPAP trials today for possible trial of extubation. Attempted to contact son regarding possibility of tracheostomy placement, thus far unsuccessful in contacting Mr. Alejandre. 09/18: Tmax 99.0. Patient currently on no sedation comfortably remains on CPAP greater than 2 days Patient failed SBT trials yesterday afternoon , with elevated RSBI as well as no cuff leak. POA son Mr. Alejandre at bedside this a.m. , extensive of discussion regarding tracheostomy to include risk and benefits. Plan for tracheostomy tomorrow 09/19. Objective Vital Signs Date Time Temp Pulse Resp B/P (MAP) Pulse Ox O2 Delivery O2 Flow Rate FiO2 09/18/17 09:13 100 40 09/18/17 06:00 55 09/18/17 04:00 100.0 16 151/78 (102) 09/17/17 20:12 Ventilator 09/14/17 10:00 4 Intake and Output 09/18/17 09/18/17 09/19/17 08:00 16:00 00:00 Intake Total 564 ml Output Total 950 ml Balance -386 ml Result Diagram: 09/18/17 0414 09/18/17 0414 Imaging Last Impressions Chest X-Ray 09/16/17599 Signed Impressions: Service Date/Time: Saturday, September 16, 2017 04:54 - CONCLUSION: Persistent bilateral patchy pulmonary opacity, decreased on the left. Leonardo Muse MD Head CT 09/10/17599 Signed Impressions: Service Date/Time: Sunday, September 10, 2017 04:17 - CONCLUSION: Stable evolving intracranial hemorrhage with no new acute findings. Nacho Krishnan MD Abdomen X-Ray 09/01/17 0000 Signed Impressions: Service Date/Time: Friday, September 01, 2017 18:29 - CONCLUSION: Nasogastric tube coiled in the stomach with the tip projecting towards the GE junction. Migue Cuenca Jr., MD Maxillofacial CT 08/30/17 0000 Signed Impressions: Service Date/Time: August 15:13 - CONCLUSION: 1. There is a minimally depressed right nasal bone fracture with adjacent soft tissue swelling. No other fracture is visualized. 2. Please refer to head CT report for description of the right subdural hematoma. Nacho Buckley MD Lumbar Spine CT 08/30/17 0000 Signed Impressions: Service Date/Time: August 17:59 - CONCLUSION: Negative examination. Alec Latham MD Cervical Spine CT 08/30/17 0000 Signed Impressions: Service Date/Time: August 15:12 - CONCLUSION: 1. No acute fracture or subluxation. Skinny Muñiz MD Last Impressions Chest X-Ray 09/14/17 0000 Signed Impressions: Service Date/Time: Thursday, September 14, 2017 11:33 - CONCLUSION: 1. ET tube right main bronchus with reexpansion right lower lobe. 2. Developing opacity left base.. Stu Huynh MD FACR Head CT 09/10/17 0600 Signed Impressions: Service Date/Time: Sunday, September 10, 2017 04:17 - CONCLUSION: Stable evolving intracranial hemorrhage with no new acute findings. Nacho Krishnan MD Abdomen X-Ray 09/01/17 0000 Signed Impressions: Service Date/Time: Friday, September 01, 2017 18:29 - CONCLUSION: Nasogastric tube coiled in the stomach with the tip projecting towards the GE junction. Migue Cuenca Jr., MD Maxillofacial CT 08/30/17 0000 Signed Impressions: Service Date/Time: August 15:13 - CONCLUSION: 1. There is a minimally depressed right nasal bone fracture with adjacent soft tissue swelling. No other fracture is visualized. 2. Please refer to head CT report for description of the right subdural hematoma. Nacho Buckley MD Lumbar Spine CT 08/30/17 0000 Signed Impressions: Service Date/Time: August 17:59 - CONCLUSION: Negative examination. Alec Latham MD Cervical Spine CT 08/30/17 0000 Signed Impressions: Service Date/Time: August 15:12 - CONCLUSION: 1. No acute fracture or subluxation. Skinny Muñiz MD Objective Remarks GENERAL: 57-year-old AA female, resting in bed orotracheally intubated, awake responsive following commands SKIN: Warm and dry. HEAD: Status post right craniotomy with subdural. EYES: Pupils equal and round about 3 mm bilaterally and reactive. No scleral icterus. No injection or drainage. ENT: No nasal bleeding or discharge. Mucous membranes pink and moist. NECK: Trachea midline. Orally intubated. CARDIOVASCULAR: RRR. S1, S2. No S4. Without murmur. No JVD. RESPIRATORY: Clear to auscultation. Breath sounds equal bilaterally. No wheezes, rales or rhonchi GASTROINTESTINAL: Abdomen soft, obese, non-tender, nondistended. PEG tube site is clean dry and intact without erythema. Normoactive bowel sounds MUSCULOSKELETAL: Extremities without significant peripheral edema. No obvious deformities. Well perfused. NEUROLOGICAL: GCS 11 T . RASS 0. Alert, orally intubated, arouses on command. Moving extremities 4 on command. Date of Insertion: Sep 01, 2017 Line: Central Venous Catheter Side: Left Location: Internal, Jugular A/P Assessment and Plan Neuro/Psych: s/p right craniotomy with evacuation of subdural hematoma 2.6 cm right parietal/temporal intracranial hemorrhage, 0.9 cm right subdural hemorrhage and bilateral subarachnoid hemorrhage Right subdural hematoma - 1.6 cm fronto temporal with a 3 mm right to left shift Right closed nondisplaced nasal fracture Schizoaffective disorder Bipolar disorder Depression Seizure disorder NOS On hold propofol/fentanyl infusions PRN for sedation/analgesia. Currently patient awake and alert Goal of RASS -[address] brain 08/30 revealed a right frontal temporal subdural hematoma 1.6 cm thickness with a 3 mm right to left shift. Nondisplaced right nasal bone fracture. CT brain 08/31 revealed 2.6 cm right parietal intracranial hemorrhage, 0.9 cm right subdural hemorrhage and bilateral subarachnoid hemorrhage CT brain 09/01 revealed stable intraparenchymal hemorrhage improving subarachnoid hemorrhage at the convex CT Head 09/05 with stable areas of ICH/ SAH. EEG 08/31 revealed generalized slowing/encephalopathy. Disruption right side secondary to intraparenchymal hemorrhage. Levetiracetam 500 mg IV twice a day for seizure prophylaxis 7 days has been discontinued Resumed home dose of valproic acid 250mg BID via PEG tube. Depakote level 09/15 25 subtherapeutic Repeat Depakote level 09/20 Goal keep systolic blood pressure less than 140. Neurochecks Head of bed at 30 Stopped hypertonic saline 09/05 per neurosurgery. Evaluated by Dr. Aiken/neurosurgery Continue doxepin 10 mg by PEG tube daily Continue acetaminophen 650 mg every 6 hours when necessary fever Holding loratadine 10 mg by PEG tube daily Currently morphine sulfate 2-4 mg every 4 hours as needed for pain CV: Hypertension Dyslipidemia Increase metoprolol 100 mg via PEG tube Q6hrly for hypertension on 09/12. Prinivil 20mg BID. Amlodipine 10 mg PEG tube daily Continue isosorbide dinitrate 10 mg 3 times a day with hydralazine 100 mg every 8 hours Clonidine patch 0.3 mg every 7 days added 09/11 As needed labetalol, hydralazine, to keep systolic blood pressure less than 140. Continue atorvastatin 40 mg by mouth daily for dyslipidemia Resp: PRVC 16/500/11/16/39, nightly CPAP trials 03/26 40% FI02 Ventilator bundle Albuterol/ipratropium aerosols every 6 hours with albuterol aerosols every 2 hours prn dyspnea Spontaneous breathing trials daily-patient continues on CPAP trials greater than 48 hours Planned SBT trial with parameters for possible trial of extubation today, if unsuccessful plan for percutaneous tracheostomy scheduled for 09/19 GI: NPO after 12 MN Continue tube feeding with vital 1.5 goal 50 cc. Status post PEG tube Dr. Gilliam 09/13 Famotidine 20 mg by PEG twice a day for GI prophylaxis Docusate sodium/senna t twice a day and polyethylene glycol twice a day for bowel regimen. Continue lactulose 30 cc twice a day as well : Incontinence Porter catheter if indicated for accurate I's and O's in a critically ill patient Continue Tolterodine 2 mg by mouth daily. Endo: Diabetes History of hypothyroidism/thyroid nodules Holding metformin 1000 mg daily and Linagliptin 5 mg daily for diabetes. Sliding-scale insulin with Accu-Cheks to maintain euglycemia Increase Insulin Detemir to 20 units twice a day Renal: History of renal cell carcinoma status post right nephrectomy KVO IVF 09/05 Maintain Porter patient on IV diuretics Monitor urine output Accurate I's and O's Heme: Normocytic anemia Elevated PTT Thrombocytopenia Monitor CBC daily. Follow trends Does not meet transfusion thresholds at this time ID: Patient noted to have fevers and left shift with bands noted on peripheral smear. Obtained allen cultures and initiated empiric antibiotic coverage with IV Zosyn 09/09, discontinued on 09/11 as urine culture growing Escherichia coli sensitive to Rocephin. De-escalated to Rocephin 1 g IV daily starting 09/11. Management per infectious disease FEN: Hypophosphatemia Hypokalemia Replace electrolytes as clinically indicated per ICU electrolyte protocol. Resumed cholecalciferol 1000 U daily. MSK: Osteoarthritis Physical therapy evaluate and treat Access -PIV's x 2 Prophylaxis - GI famotidine - DVT- SCD. Per neurosurgery initiate heparin 5000 u BID (09/16) Dispo: Discussed with RESIDENT SURGEON at bedside. Extensive discussion with the patient and son Oscar Alejandre [phone], provided an update on patient's medical status and plan for percutaneous tracheostomy 09/19. All questions answered Level 2 follow-up Physician Audelia Carmichael MD Sep 18, 2017 12:32
[2017-09-18] MEDS: RESP: ALBUTEROL 2.5 MG/3 ML NEB (PRN) INH (20:23)
[2017-09-18] MEDS: DOXEPIN HCL 10 MG CAP PO SCH (21:02)
[2017-09-18] MEDS: ATORVASTATIN 40 MG TAB PO SCH (21:02)
[2017-09-19] VITALS (19 sets, daily range): BP systolic 93–135; BP diastolic 55–70; PULSE 56–64; RESP 16–20; TEMP 97.5–99.9; O2SAT 99–100
[2017-09-19] MEDS: hydrALAZINE HCL 100 MG TAB PO SCH ×3 (02:10→18:04)
[2017-09-19] MEDS: CHLORHEXIDINE GLUCONATE 2 % 1 PACK (2 CLOTHS) TOP SCH (04:00)
[2017-09-19 04:58] LABS: HEMATOCRIT 27.9 % (35.0-46.0); MEAN CELL VOLUME 82.4 FL (80.0-100.0); MEAN CORPUSCULAR HGB CONC 31.5 % (32.0-36.0); PLATELET COUNT 552 TH/MM3 (150-450); RED BLOOD COUNT 3.38 MIL/MM3 (4.00-5.30); RED CELL DISTRIBUTION WIDTH 15.3 % (11.6-17.2); REVIEW FLAG FINAL; WHITE BLOOD COUNT 12.9 TH/MM3 (4.0-11.0)
[2017-09-19 05:20] LABS: APTT (PATIENT) 34.6 SEC (24.3-30.1); PROTHROMBIN TIME - PATIENT 11.4 SEC (9.8-11.6)
[2017-09-19] MEDS: ARTIFICIAL TEARS OPTH SOLN 15 ML BTL EACH EYE SCH ×3 (06:00→22:00)
[2017-09-19] MEDS: METOPROLOL TARTRATE 100 MG TAB PO SCH ×5 (06:00→23:10)
[2017-09-19] MEDS: INSULIN NovoLIN REGULAR SUPPLEMENTAL SCALE SQ SCH ×4 (06:00→17:58)
--- NOTE | 2017-09-19 06:04 | RADRPT ---
EXAM DATE/TIME: 09/19/2017 04:31 [facility] COMPARISON: CHEST SINGLE AP, September 17, 2017, 3:12. INDICATIONS : Shortness of breath. MEDICAL HISTORY : None. SURGICAL HISTORY : None. ENCOUNTER: Subsequent ACUITY: 1 week PAIN SCORE: Non-responsive. LOCATION: Bilateral chest FINDINGS: The cardiac silhouette is normal in transverse diameter. The lungs are hypoinflated. There is subsegm ental atelectasis in the right base. CONCLUSION: 1. Subsegmental atelectasis right base. There has been no significant change when compared to the jeannine or exam. Dairus Harris MD on September 19, 2017 at 6:02 Board Certified Radiologist. This report was verified electronically.
[2017-09-19] MEDS: ISOSORBIDE DINITRATE 10 MG TAB PO SCH ×3 (06:06→22:14)
[2017-09-19] MEDS: MORPHINE SULFATE 4 MG/ML INJ IV PUSH PRN (06:22)
[2017-09-19] MEDS: CHLORHEXIDINE 0.12% (ORAL KIT) 15 ML CUP MT SCH ×2 (08:00→20:00)
[2017-09-19] MEDS: cefTRIAXone INJ 1,000 MG in SODIUM CHLORIDE 0.9% INJ 100 ML IV SCH (08:18)
[2017-09-19] MEDS: FUROSEMIDE 40 MG TAB PO SCH (08:18)
[2017-09-19] MEDS: TOLTERODINE TARTRATE 2 MG TAB PO SCH (08:18)
[2017-09-19] MEDS: VALPROIC ACID SYRUP 250 MG/5 ML UDC OG-TUBE SCH ×2 (08:18→20:47)
[2017-09-19] MEDS: LISINOPRIL 20 MG TAB PO SCH ×2 (08:19→20:47)
[2017-09-19] MEDS: FAMOTIDINE 20 MG TAB NG SCH ×2 (08:19→20:46)
[2017-09-19] MEDS: LACTULOSE SYRUP 20 GM/30 ML CUP PO SCH ×2 (09:00→20:48)
[2017-09-19] MEDS: POLYETHYLENE GLYCOL 17 GM PKG PO SCH ×2 (09:00→20:48)
[2017-09-19] MEDS: DOCUSATE SODIUM 100 MG/10 ML UDC PO SCH ×2 (09:00→20:47)
[2017-09-19] MEDS: CHOLECALCIFEROL (VIT D3) 1000 UNIT TAB PO SCH (09:00)
[2017-09-19] MEDS: INSULIN DETEMIR 100 UNITS/ML VIAL SQ SCH ×2 (09:00→20:48)
[2017-09-19] MEDS: HEPARIN SODIUM - SQ 10,000 UNITS/ML VIAL SQ SCH ×2 (09:00→20:47)
[2017-09-19] MEDS: SENNOSIDES SYRUP 8.8 MG/5 ML CUP PO SCH ×2 (09:00→20:48)
[2017-09-19] MEDS: SODIUM CHLORIDE 0.9% FLUSH 10 ML FLUSH IV FLUSH SCH ×3 (09:00→20:46)
[2017-09-19] MEDS ORDERED: ROCURONIUM INJ 50 MG/5 ML VIAL ONE (09:58)
[2017-09-19] MEDS: PROPOFOL 1000 MG/100 ML INJ 100 ML IV PRN ×3 (10:00→18:04)
[2017-09-19] MEDS ORDERED: MIDAZOLAM HCL 5 MG/ML VIAL (1 ML) IV ONE (10:00)
[2017-09-19] MEDS ORDERED: MIDAZOLAM HCL 5 MG/ML VIAL (1 ML) IM ONE ×2 (10:00→12:15)
[2017-09-19] MEDS ORDERED: ROCURONIUM INJ 100 MG/10 ML VIAL IV ONE (10:00)
[2017-09-19] MEDS ORDERED: fentaNYL CITRATE 250 MCG/5 ML AMP IV PUSH ONE ×2 (10:00→12:15)
--- NOTE | 2017-09-19 10:51 | PD.PROCEDR ---
Procedure Note Procedure Percutaneous Dilation Tracheostomy Tube Placement Diagnosis: Failure to wean Indications: Same Anesthesia: see MAR Neuromuscular Blockade: Rocuronium 50 mg Anesthesia was provided by the bedside RN Description of the Procedure: The patient was sedated and paralyzed. The patient was positioned in the supine position with a chest roll. The patient's neck was slightly extended. Landmarks were palpated and the anatomy of the anterior neck was deemed normal. A time out procedure was performed. The patient was placed on a volume control mode of ventilation, on 100% FiO2. The patient was prepped and draped sterilely. A bronchoscope was inserted into the endotracheal tube for endoscopic guidance ( see separate bronchoscopy procedure note). After negative aspiration, 1% lidocaine with 1:100k epinephrine was injected subcutaneously in the midline neck using a 21g needle for local anesthesia. An approximately 2cm skin incision was made using a #15 blade. The cricoid cartilage, thyroid tissue, and tracheal rings were palpated in the midline. Under direct bronchoscopic guidance , the cuff of the endotracheal tube was deflated and the endotracheal tube was retracted to a level above the level of the skin incision. At this point, a 15g introducer needle/catheter was advanced midline under negative aspiration with saline filled syringe until bubbles were seen and the needle and catheter were visualized in the lumen of the trachea. The needle was withdrawn leaving the catheter in place. A 0.052 in diameter J-shaped guidewire was advanced through the catheter into the lumen of the trachea, under direct bronchoscopic visualization. Using a modified Seldinger technique, a 14 Fr, 4.5 cm introducer dilator was used, followed by a Blue Rhino Percutaneous Tracheostomy Dilator, and finally a 28 Fr tracheostomy loading catheter with 8.0 Cuffed Shiley tracheostomy tube. The loading catheter and guidewire were removed and the tracheostomy tube was confirmed in the lumen of the trachea with bronchoscopy, end-tidal CO2, and returning volumes on the ventilator. The tracheostomy was sewn to the skin with interrupted 2.0 Prolene sutures, and a tracheostomy tie was applied to the skin. There were no immediate complications. There was minimal EBL. A chest x-ray has been ordered. Injection Molding Machine Operator: Thuan Parrish MD I personally performed the procedure. Audelia Ochoa MD Sep 19, 2017 10:51
--- NOTE | 2017-09-19 11:06 | HHI.CCPN ---
Subjective Remarks/Hospital Course 57-year-old AA female . Date of admission 08/30/2017. Past medical history includes schizoaffective/bipolar, depression, seizure disorder, hypertension, dyslipidemia, diabetes and allergic rhinitis. She is not on any blood thinners or aspirin. This patient was walking from [place] in approximately 6 AM this morning when she suffered a fall and landed on the right side of her face.. She states she slipped in the wet grass hitting her face on the concrete. No loss of consciousness. Not seizure activity noted. Not tongue biting. No incontinence of stool or urine. 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 Patient states that she's been having a headache and right-sided facial pain since. 08/30 CT of the brain showed a right frontotemporal subdural hematoma 1.6 cm with a 3 mm right to left shift. Maxillofacial CT revealed a nondisplaced right nasal fracture. CT spine negative. CBC showed normocytic anemia. BMP is pending. Elevated PTT coags at 33. Patient was loaded with 500 mg levetiracetam, given as needed for elevated blood pressure stabilized in the ED. Neurosurgical consultation was requested with Dr. Aiken. 08/31: Afebrile. CT brain revealed increased diameter right-sided subdural hematoma up to 1.9 cm. Shift is 1 mm right to left. Positive headache. No seizure activity. No real focal neurological deficits. 09/01: Patient subjective a weak left upper and lower extremity greater than right. Mumbling words. Stat CT brain revealed 2.6 cm image right intraparenchymal hemorrhage on the right temporal parietal region, 0.9 cm right cerebellar hemorrhage and bilateral subarachnoid hemorrhage convex's. Notified Dr. Aiken. Patient was intubated for airway protection and central line placed for hypertonic saline 09/02: Tmax 99.9. Improved subarachnoid hemorrhage. Stable right intraparenchymal hemorrhages. Potassium and phosphorus been replaced. No bowel movement. 09/03: Currently afebrile. Remains on propofol and fentanyl drips for sedation. Tolerating tube feeds at goal. Arousable with open eyes but not following commands currently. 09/04: Remains sedated, orally intubated on mechanical ventilation. Tolerating tube feeds. 09/05: Remains sedated, orally intubated on mechanical ventilation. Tolerating tube feeds. 09/06: Breathes over vent despite sedation. Withdraws limbs. 09/07: Remains sedated, orally intubated on mechanical ventilation. Tolerating tube feeds. 09/08: Will work toward extubation when OK with Neurosurgery. 09/09: Remains sedated, orally intubated on mechanical ventilation. Tolerating tube feeds. 09/10: Remains sedated, orally intubated on mechanical ventilation. Tolerating tube feeds. 09/11: Remains drowsy, orally intubated on mechanical ventilation. Tolerating tube feeds. Daily C Pap trials ongoing. Remains on nicardipine drip. 09/12: Remains drowsy, encephalopathic, orally intubated on mechanical ventilation. Tolerating tube feeds. Daily C Pap trials ongoing. Remains on nicardipine drip. 09/13: Drowsy, arousable, orally intubated on mechanical ventilation. Tolerating C Pap trial. Awaiting PEG tube today 09/14: Afebrile. Tolerating tube feeds at 1.5 at 45 cc an hour/goal. Positive BM. Will need percutaneous tracheostomy currently a day #14. Status post PEG tube I Dr. Gilliam Subjective 09/15: Failed extubation yesterday due to stridor. Upon intubation area was edematous. Currently receiving Decadron 48 hours. Attempt extubation tomorrow versus tracheostomy on Sunday. She is awake she will intermittently follow commands. 09/16: Patient awake and alert, on commands. Currently on CPAP trials doing well. Plan for trial of extubation this afternoon. Patient noted to have elevated glucose levels will DC vital high protein in place patient on Glucerna tube feeds. Per colleague Dr. Rodas, will restart DVT prophylaxis today, has been okayed by Neurosurgery. 09/17: Patient continues to be on sedation alert and following commands CPAP trials underway attempted SBT parameters yesterday which patient failed. Will continue CPAP trials today for possible trial of extubation. Attempted to contact son regarding possibility of tracheostomy placement, thus far unsuccessful in contacting Mr. Alejandre. 09/18: Tmax 99.0. Patient currently on no sedation comfortably remains on CPAP greater than 2 days Patient failed SBT trials yesterday afternoon , with elevated RSBI as well as no cuff leak. POA son Mr. Alejandre at bedside this a.m. , extensive of discussion regarding tracheostomy to include risk and benefits. Plan for tracheostomy tomorrow 09/19. 09/19: Tmax 99.9. No acute events overnight. Patient remains ventilator dependent #8.0 Shiley percutaneous tracheostomy placement this a.m. performed, uneventful. Disposition planning in progress. Objective Vital Signs Date Time Temp Pulse Resp B/P (MAP) Pulse Ox O2 Delivery O2 Flow Rate FiO2 09/19/17 09:04 100 100 09/19/17 06:00 59 09/19/17 04:00 99.5 16 130/69 (89) 09/17/17 20:12 Ventilator Intake and Output 09/19/17 09/19/17 09/20/17 08:00 16:00 00:00 Intake Total 370 ml Output Total 650 ml Balance -280 ml Result Diagram: 09/19/1741209/18/17413 Imaging Last Impressions Chest X-Ray 09/16/17599 Signed Impressions: Service Date/Time: Saturday, September 16, 2017 04:54 - CONCLUSION: Persistent bilateral patchy pulmonary opacity, decreased on the left. Leonardo Muse MD Head CT 09/10/17599 Signed Impressions: Service Date/Time: Sunday, September 10, 2017 04:17 - CONCLUSION: Stable evolving intracranial hemorrhage with no new acute findings. Nacho Krishnan MD Abdomen X-Ray 09/01/17 0000 Signed Impressions: Service Date/Time: Friday, September 01, 2017 18:29 - CONCLUSION: Nasogastric tube coiled in the stomach with the tip projecting towards the GE junction. Migue Cuenca Jr., MD Maxillofacial CT 08/30/17 0000 Signed Impressions: Service Date/Time: August 15:13 - CONCLUSION: 1. There is a minimally depressed right nasal bone fracture with adjacent soft tissue swelling. No other fracture is visualized. 2. Please refer to head CT report for description of the right subdural hematoma. Nacho Buckley MD Lumbar Spine CT 08/30/17 0000 Signed Impressions: Service Date/Time: August 17:59 - CONCLUSION: Negative examination. Alec Latham MD Cervical Spine CT 08/30/17 0000 Signed Impressions: Service Date/Time: August 15:12 - CONCLUSION: 1. No acute fracture or subluxation. Skinny Muñiz MD Last Impressions Chest X-Ray 09/14/17 0000 Signed Impressions: Service Date/Time: Thursday, September 14, 2017 11:33 - CONCLUSION: 1. ET tube right main bronchus with reexpansion right lower lobe. 2. Developing opacity left base.. Stu Huynh MD FACR Head CT 09/10/17 0600 Signed Impressions: Service Date/Time: Sunday, September 10, 2017 04:17 - CONCLUSION: Stable evolving intracranial hemorrhage with no new acute findings. Nacho Krishnan MD Abdomen X-Ray 09/01/17 0000 Signed Impressions: Service Date/Time: Friday, September 01, 2017 18:29 - CONCLUSION: Nasogastric tube coiled in the stomach with the tip projecting towards the GE junction. Migue Cuenca Jr., MD Maxillofacial CT 08/30/17 0000 Signed Impressions: Service Date/Time: August 15:13 - CONCLUSION: 1. There is a minimally depressed right nasal bone fracture with adjacent soft tissue swelling. No other fracture is visualized. 2. Please refer to head CT report for description of the right subdural hematoma. Nacho Buckley MD Lumbar Spine CT 08/30/17 0000 Signed Impressions: Service Date/Time: August 17:59 - CONCLUSION: Negative examination. Alec Latham MD Cervical Spine CT 08/30/17 0000 Signed Impressions: Service Date/Time: August 15:12 - CONCLUSION: 1. No acute fracture or subluxation. Skinny Muñiz MD Objective Remarks GENERAL: 57-year-old AA female, resting in bed orotracheally intubated, awake responsive following commands SKIN: Warm and dry. HEAD: Status post right craniotomy with subdural. EYES: Pupils equal and round about 3 mm bilaterally and reactive. No scleral icterus. No injection or drainage. ENT: No nasal bleeding or discharge. Mucous membranes pink and moist. NECK: Trachea midline. Orally intubated. CARDIOVASCULAR: RRR. S1, S2. No S4. Without murmur. No JVD. RESPIRATORY: Clear to auscultation. Breath sounds equal bilaterally. No wheezes, rales or rhonchi GASTROINTESTINAL: Abdomen soft, obese, non-tender, nondistended. PEG tube site is clean dry and intact without erythema. Normoactive bowel sounds MUSCULOSKELETAL: Extremities without significant peripheral edema. No obvious deformities. Well perfused. NEUROLOGICAL: GCS 11 T . RASS 0. Alert, orally intubated, arouses on command. Moving extremities 4 on command. Procedures 09/14 PEG placement 09/19 percutaneous tracheostomy 8.0 Sarah Date of Insertion: Sep 01, 2017 Line: Central Venous Catheter Side: Left Location: Internal, Jugular A/P Assessment and Plan Neuro/Psych: s/p right craniotomy with evacuation of subdural hematoma 2.6 cm right parietal/temporal intracranial hemorrhage, 0.9 cm right subdural hemorrhage and bilateral subarachnoid hemorrhage Right subdural hematoma - 1.6 cm fronto temporal with a 3 mm right to left shift Right closed nondisplaced nasal fracture Schizoaffective disorder Bipolar disorder Depression Seizure disorder NOS 09/19 Propofol infusion for ventilator synchrony reinitiated. Post tracheostomy placement. Goal of RASS -[address] brain 08/30 revealed a right frontal temporal subdural hematoma 1.6 cm thickness with a 3 mm right to left shift. Nondisplaced right nasal bone fracture. CT brain 08/31 revealed 2.6 cm right parietal intracranial hemorrhage, 0.9 cm right subdural hemorrhage and bilateral subarachnoid hemorrhage CT brain 09/01 revealed stable intraparenchymal hemorrhage improving subarachnoid hemorrhage at the convex CT Head 09/05 with stable areas of ICH/ SAH. EEG 08/31 revealed generalized slowing/encephalopathy. Disruption right side secondary to intraparenchymal hemorrhage. Levetiracetam 500 mg IV twice a day for seizure prophylaxis 7 days has been discontinued Resumed home dose of valproic acid 250mg BID via PEG tube. Depakote level 09/15 25 subtherapeutic Repeat Depakote level 09/20 Goal keep systolic blood pressure less than 140. Neurochecks Head of bed at 30 Stopped hypertonic saline 09/05 per neurosurgery. Evaluated by Dr. Aiken/neurosurgery Continue doxepin 10 mg by PEG tube daily Continue acetaminophen 650 mg every 6 hours when necessary fever Holding loratadine 10 mg by PEG tube daily Currently morphine sulfate 2-4 mg every 4 hours as needed for pain CV: Hypertension Dyslipidemia Increase metoprolol 100 mg via PEG tube Q6hrly for hypertension on 09/12. Prinivil 20mg BID. Amlodipine 10 mg PEG tube daily Continue isosorbide dinitrate 10 mg 3 times a day with hydralazine 100 mg every 8 hours Clonidine patch 0.3 mg every 7 days added 09/11 As needed labetalol, hydralazine, to keep systolic blood pressure less than 140. Continue atorvastatin 40 mg by mouth daily for dyslipidemia Resp: PRVC 16/500//40, nightly CPAP trials 03/26 40% FI02 Ventilator bundle Albuterol/ipratropium aerosols every 6 hours with albuterol aerosols every 2 hours prn dyspnea Spontaneous breathing trials daily-patient continues on CPAP trials greater than 48 hours Repeated SBT trialswith parameters for possible trial of extubation failure 3 days. ETT day Percutaneous tracheostomy 09/19 GI: Continue tube feeding with vital 1.5 goal 50 cc. Status post PEG tube Dr. Gilliam 09/13 Famotidine 20 mg by PEG twice a day for GI prophylaxis Docusate sodium/senna t twice a day and polyethylene glycol twice a day for bowel regimen. Continue lactulose 30 cc twice a day as well : Incontinence Porter catheter if indicated for accurate I's and O's in a critically ill patient Continue Tolterodine 2 mg by mouth daily. Endo: Diabetes History of hypothyroidism/thyroid nodules Holding metformin 1000 mg daily and Linagliptin 5 mg daily for diabetes. Sliding-scale insulin with Accu-Cheks to maintain euglycemia Increase Insulin Detemir to 20 units twice a day Renal: History of renal cell carcinoma status post right nephrectomy KVO IVF 09/05 Maintain Porter patient on IV diuretics Monitor urine output Accurate I's and O's Heme: Normocytic anemia Elevated PTT Thrombocytopenia Monitor CBC daily. Follow trends Does not meet transfusion thresholds at this time ID: Patient noted to have fevers and left shift with bands noted on peripheral smear. Obtained allen cultures and initiated empiric antibiotic coverage with IV Zosyn 09/09, discontinued on 09/11 as urine culture growing Escherichia coli sensitive to Rocephin. De-escalated to Rocephin 1 g IV daily starting 09/11. Management per infectious disease FEN: Hypophosphatemia Hypokalemia Replace electrolytes as clinically indicated per ICU electrolyte protocol. Resumed cholecalciferol 1000 U daily. MSK: Osteoarthritis Physical therapy evaluate and treat Access -PIV's x 2 Prophylaxis - GI famotidine - DVT- SCD. Per neurosurgery initiate heparin 5000 u BID (09/16) Dispo: Discussed with COMBINATION MACHINE TENDER at bedside. Attempted to call son Oscar Alejandre [phone], S/P percutaneous tracheostomy, to provide update ,unable to contact. Level 3 follow-up Physician Audelia Carmichael MD Sep 19, 2017 11:06
[2017-09-19] MEDS ORDERED: PROPOFOL 1000 MG/100 ML INJ 100 ML IV PRN (11:15)
--- NOTE | 2017-09-19 13:01 | RADRPT ---
EXAM DATE/TIME: 09/19/2017 12:40 [facility] COMPARISON: CHEST SINGLE AP, September 19, 2017, 4:31. INDICATIONS : Tracheostomy placement. MEDICAL HISTORY : None. SURGICAL HISTORY : None. ENCOUNTER: Subsequent ACUITY: 1 day PAIN SCORE: Non-responsive. LOCATION: Bilateral chest FINDINGS: Trach tube in good position. Minimal parenchymal changes right base progressed in interval. Left analisa ng is clear. The cardiomediastinal contours are unremarkable. Osseous structures are intact. CONCLUSION: Trachea in good position. Minimal parenchymal changes right base progressing. Stu Huynh MD FACR on September 19, 2017 at 12:59 Board Certified Radiologist. This report was verified electronically.
--- NOTE | 2017-09-19 14:56 | PD.PROCEDR ---
Procedure Note Procedure Procedure DX: Respiratory Failure (J96.00) OP: Bronchoscopy (63216) Procedure: Time out. Bronchoscope passed through vent circuit side port on elbow. Usual ICU monitoring in place. Mechanical ventilation rate 18/min.. The mucosa of the main trachea was mildly inflamed. The segmental bronchi both sides were inspected and clean. Branching was anatomically normal. The scope and orotracheal tube were then withdrawn to the cricoid level. Visualization was accomplished from this position for the percutaneous trach insertion by another team. After trach insertion the scope was introduced through the new trach tube to confirm good position in the mid-trachea. Ventilation was then converted to the new trach tube. Sats were easily maintained over 95% throughout the procedure. Mc Parrish MD Sep 19, 2017 14:56
--- NOTE | 2017-09-19 17:30 | PD.ID.CON ---
History of Present Illness Service ID Consult Requested By Dr Ochoa Reason for Consult leukocytosis Primary Care Physician Unknown Diagnoses: History of Present Illness Pt is sedated int'd and unable to provide history chart was reviewed 57-year-old admitted on 08/30/2017. sp fall resulted into right frontotemporal subdural hematoma with right to left shift and nondisplaced right nasal fracture. On 09/01 she developped weakness in left upper and lower extremity greater and speech difficulty. Stat CT brain revealed 2.6 cm image right intraparenchymal hemorrhage on the right temporal parietal region, 0.9 cm right cerebellar hemorrhage and bilateral subarachnoid hemorrhage convex's. N Patient was intubated for airway protection Over the next 10 days pt remained encephalopathic, orally intubated on mechanical ventilation. On 09/14 she failed attempted extubation due to stridor. Started on Decadron 48 hours. Next fee days she failed further weaning and trach was performed on 09/19 Low grade fever and leukocytosis were noted in the last 48 hrs Blood clx obtained 10 days ago negative, nl resp tyrel in sputum and E.coli in urine clx Review of Systems ROS Limitations: Clinical Condition, Intubated, Altered Mental Status, Unresponsive Past Family Social History Allergies: Coded Allergies: haloperidol (Unverified Allergy, Severe, 08/30/17) olanzapine (Unverified Allergy, Severe, 08/30/17) sertraline (Unverified Allergy, Unknown, 08/30/17) Past Medical History Past medical history includes schizoaffective/bipolar, depression, seizure disorder, hypertension, dyslipidemia, diabetes and allergic rhinitis Past Surgical History s/p right craniotomy with evacuation of subdural hematoma cholecystectomy R nephoectomy tubal ligation Active Ordered Medications Medications where reviewed in EMR Antibiotics Include: CFTX Family History unable to obtaine Social History NO ETOH no drugs quit tobacco 2 yrs ago Physical Exam Vital Signs Vital Signs Date Time Temp Pulse Resp B/P (MAP) Pulse Ox O2 Delivery O2 Flow Rate FiO2 09/19/17 16:00 60 09/19/17 16:00 60 09/19/17 16:00 98.2 60 20 108/70 (83) 100 09/19/17 15:43 99 Ventilator 60 09/19/17 14:00 62 09/19/17 12:00 97.5 56 16 93/55 (68) 100 09/19/17 12:00 56 09/19/17 12:00 100 09/19/17 11:06 100 100 09/19/17 10:00 56 09/19/17 09:35 100 100 09/19/17 09:04 100 100 09/19/17 08:00 98.4 60 16 111/69 (83) 100 09/19/17 08:00 60 09/19/17 08:00 40 09/19/17 06:00 59 09/19/17 04:06 100 40 09/19/17 04:00 99.5 60 16 130/69 (89) 100 09/19/17 04:00 40 09/19/17 04:00 60 09/19/17 02:00 64 09/19/17 01:20 100 40 09/19/17 00:00 99.9 63 16 135/63 (87) 100 09/19/17 00:00 40 09/19/17 00:00 63 09/18/17 22:18 100 40 09/18/17 22:00 68 09/18/17 20:23 100 40 09/18/17 20:20 40 09/18/17 20:00 64 09/18/17 20:00 99.7 64 16 103/59 (74) 100 09/18/17 20:00 40 09/18/17 18:30 40 09/18/17 18:00 72 09/18/17 17:39 15 Physical Exam CONSTITUTIONAL/GENERAL: This is an obese female patient, in no apparent distress. TUBES/LINES/DRAINS: SKIN: No jaundice, rashes, or lesions. Skin temperature appropriate. Not diaphoretic. HEAD: R parietal incision - dry, clean Normocephalic. EYES: Pupils equal and round and reactive. Extraocular motions intact. No scleral icterus. No injection or drainage. Fundi not examined. ENT: Hearing grossly normal. Nose without bleeding or purulent drainage. Oral mucosae without visible erythema, exudates, masses, or lesions. NECK: Trach in place Supple, nontender. No palpable thyroid enlargement or nodularity. CARDIOVASCULAR: Regular rate and rhythm without murmurs, gallops, or rubs. No JVD. Peripheral pulses symmetric. RESPIRATORY/CHEST: Symmetric, unlabored respirations. Clear to auscultation. Breath sounds equal bilaterally. No wheezes, rales, or rhonchi. GASTROINTESTINAL: Abdomen soft, non-tender, nondistended. No hepato-splenomegaly , or palpable masses. No guarding. Bowel sounds present. GENITOURINARY: Without palpable bladder distension. Porter catheter in place with clear yellow MUSCULOSKELETAL: Extremities without clubbing, cyanosis, or edema. No joint tenderness or effusion noted. No calf tenderness. No mottling or clubbing. LYMPHATICS: No palpable cervical or supraclavicular adenopathy. Sedated arousable; follows commands with all 4 extremeties - per TEST EQUIPMENT MECHANIC: unable to assess Laboratory Laboratory Tests Test 09/19/17 04:13 White Blood Count 12.9 Red Blood Count 3.38 Hemoglobin 8.8 Hematocrit 27.9 Mean Corpuscular Volume 82.4 Mean Corpuscular Hemoglobin 26.0 Mean Corpuscular Hemoglobin Concent 31.5 Red Cell Distribution Width 15.3 Platelet Count 552 Mean Platelet Volume 8.0 Prothrombin Time 11.4 Prothromb Time International Ratio 1.0 Activated Partial Thromboplast Time 34.6 Phosphorus Level 2.6 Magnesium Level 2.0 Date/Time Source Procedure Growth Status 09/09/17 13:33 Blood Peripheral Aerobic Blood Culture - Final NO GROWTH IN 5 DAYS Complete 09/09/17 13:33 Blood Peripheral Anaerobic Blood Culture - Final NO GROWTH IN 5 DAYS Complete 09/09/17 10:50 Sputum Endotracheal Gram Stain - Final Complete 09/09/17 10:50 Sputum Endotracheal Sputum Culture - Final HEAVY GROWTH NORMAL RESPIRATORY TYREL Complete 09/09/17 09:42 Urine Catheterized Urine Urine Culture - Final Escherichia Coli Complete Result Diagram: 09/19/17 0413 09/18/17 0414 Imaging Last Impressions Chest X-Ray 09/19/17 06 Signed Impressions: Service Date/Time: Tuesday, September 19, 2017 04:31 - CONCLUSION: 1. Subsegmental atelectasis right base. There has been no significant change when compared to the prior exam. Draius Harris MD Head CT 09/10/17 0600 Signed Impressions: Service Date/Time: Sunday, September 10, 2017 04:17 - CONCLUSION: Stable evolving intracranial hemorrhage with no new acute findings. Nacho Krishnan MD Abdomen X-Ray 09/01/17 0000 Signed Impressions: Service Date/Time: Friday, September 01, 2017 18:29 - CONCLUSION: Nasogastric tube coiled in the stomach with the tip projecting towards the GE junction. Migue Cuenca Jr., MD Maxillofacial CT 08/30/17 Signed Impressions: Service Date/Time: August 15:13 - CONCLUSION: 1. There is a minimally depressed right nasal bone fracture with adjacent soft tissue swelling. No other fracture is visualized. 2. Please refer to head CT report for description of the right subdural hematoma. Nacho Buckley MD Lumbar Spine CT 08/30/17 Signed Impressions: Service Date/Time: August 17:59 - CONCLUSION: Negative examination. Alec Latham MD Cervical Spine CT 08/30/17 Signed Impressions: Service Date/Time: August 15:12 - CONCLUSION: 1. No acute fracture or subluxation. Skinny Muñiz MD Assessment and Plan Assessment and Plan Intracranial bleed, sp trauma Acute VDRF sp trach Low grade fever Leukocytosis E.coli UTI, on CFTX repeat blood, urine , sputum clx with fever monitor WBC cont current abx Dacia Melendez MD Sep 19, 2017 17:30
[2017-09-19] MEDS: ATORVASTATIN 40 MG TAB PO SCH (20:47)
[2017-09-19] MEDS: DOXEPIN HCL 10 MG CAP PO SCH (20:47)
[2017-09-20] VITALS (20 sets, daily range): BP systolic 113–172; BP diastolic 69–81; PULSE 62–98; RESP 15–20; TEMP 99–100; O2SAT 97–100
[2017-09-20] MEDS: PROPOFOL 1000 MG/100 ML INJ 100 ML IV PRN ×2 (00:37→06:53)
[2017-09-20] MEDS: hydrALAZINE HCL 100 MG TAB PO SCH ×3 (02:00→18:00)
[2017-09-20] MEDS: CHLORHEXIDINE GLUCONATE 2 % 1 PACK (2 CLOTHS) TOP SCH (04:00)
[2017-09-20] MEDS: METOPROLOL TARTRATE 100 MG TAB PO SCH ×4 (05:29→23:49)
[2017-09-20] MEDS: ISOSORBIDE DINITRATE 10 MG TAB PO SCH ×3 (05:34→21:10)
[2017-09-20] MEDS: ARTIFICIAL TEARS OPTH SOLN 15 ML BTL EACH EYE SCH ×3 (05:34→21:00)
[2017-09-20 06:10] LABS: HEMATOCRIT 29.8 % (35.0-46.0); MEAN CELL VOLUME 83.4 FL (80.0-100.0); MEAN CORPUSCULAR HEMOGLOBIN 26.8 PG (27.0-34.0); MEAN CORPUSCULAR HGB CONC 32.1 % (32.0-36.0); PLATELET COUNT 499 TH/MM3 (150-450); RED BLOOD COUNT 3.58 MIL/MM3 (4.00-5.30); RED CELL DISTRIBUTION WIDTH 15.4 % (11.6-17.2); REVIEW FLAG FINAL; WHITE BLOOD COUNT 12.3 TH/MM3 (4.0-11.0)
--- NOTE | 2017-09-20 06:25 | RADRPT ---
EXAM DATE/TIME: 09/20/2017 05:16 [facility] COMPARISON: CHEST SINGLE AP, September 19, 2017, 12:40. INDICATIONS : Respiratory failure. MEDICAL HISTORY : None. SURGICAL HISTORY : None. ENCOUNTER: Subsequent ACUITY: 1 week PAIN SCORE: Non-responsive. LOCATION: Bilateral chest FINDINGS: The cardiac silhouette is enlarged in transverse diameter. A tracheostomy tube is in place in the mid line. There is subsegmental atelectasis in the right base. CONCLUSION: 1. Subsegmental atelectasis right base. There has been no significant change when compared to the jeannine or exam. Darius Harris MD on September 20, 2017 at 6:24 Board Certified Radiologist. This report was verified electronically.
[2017-09-20 06:39] LABS: BICARBONATE 23.5 MEQ/L (21.0-32.0); MAGNESIUM 2.2 MG/DL (1.5-2.5)
[2017-09-20] MEDS: INSULIN NovoLIN REGULAR SUPPLEMENTAL SCALE SQ SCH ×4 (06:53→18:00)
--- NOTE | 2017-09-20 07:59 | HHI.PR ---
Neuropsych Emotional Emotional: UnabletoAssess: Emotional, Anxious/Fearful, Depressed/Sad, Hostile/ Resentful, Irritable/Angry/Frustrate, Labile, Constricted/Blunted Behavior Behavior: Unable to Asses: Behavior, Coping/Acceptance, Cooperative w/ Treatment, Motivation, Frustration Tolerance/Weir, Impulsive/Agitated, Suicidal/ Homicidal Risk Cognitive Cognitive: Unable to Asses: Cognitive, Attention/Concentration, Confused/ Orientation, Insight/Awareness, Judgement/Problem-Solving, Memory Psychosocial Psychosocial: Moderate: Psychosocial, Family/Other Adjustment, Realistic Expectation, Unable to Asses: Self-Esteem/Confidence Progress Notes/Response to Tx Contents of Sessions: Adjustment Time with Patient: 15 minutes Premorbid psychological status Premorbid Cognitive, Emotional and Behavioral Status: Unable to Assess. The patient's history is unclear other than she had prior psychiatric diagnoses in the past. Behavioral Reactions of Patient and Family/Support System: Unable to Assess. The patients family is likely experiencing ongoing issues of adjustment given the nature of the injury, and this aspect of recovery will require ongoing monitoring. Emotional/Behavioral Status of Patient and Family/Support System: Unable to Assess. Pertinent issues, if appropriate to this patients clinical care, are described in detail above. Maximizing acute care outcome It is recommended that the patient be monitored for emergent behavioral impulsivity as the medical condition evolves. This patients neuropathological challenges may limit their rehabilitation potential going forward, and these challenges will require specialized therapeutic skills to maximize outcome. Additionally, the patients family is experiencing ongoing issues of adjustment given the traumatic nature of the injury, and they may benefit from ongoing psychological assistance. Anticipated Problems Ongoing areas of concern will include behavioral impulsivity, lack of insight and judgment, which is expected to improve with time and treatment. Presently , the patient remains intubated and sedated. Treatment Plan This clinician will continue to follow with you throughout the course of this patients acute care treatment, and I will be available to meet with the patient s family/support system to facilitate their understanding and the ongoing care of their family member. The goals of neuropsychological intervention shall be both educational and supportive to the family/support system as is deemed clinically appropriate. [facility] Level: V:Confused-non agitated Impression This 57 year old woman is s/p TBI 2T fall on 08/31/2017, who is now intubated and sedated. She has a history of schizoaffective disorder prior to her TBI. Diagnosis: (1) Major neurocognitive disorder as late effect of traumatic brain injury without behavioral disturbance (2) Schizoaffective disorder Status: Acute Progress Note Narrative Ongoing follow-up of patient seen during daily trauma rounds. This is day 21 post injury. The patient underwent trach yesterday, still with FI02 of 100. No neurobehavioral issues. She is awake and follows commands. TBI recovery at present consistent with [place]. I will continue to follow. Problem Qualifiers (1) Schizoaffective disorder: Qualified Codes: F25.0 - Schizoaffective disorder, bipolar type Bhavik Crabtree PhD Sep 20, 2017 7:59 am
[2017-09-20] MEDS: CHLORHEXIDINE 0.12% (ORAL KIT) 15 ML CUP MT SCH ×2 (08:00→20:57)
[2017-09-20] MEDS: LACTULOSE SYRUP 20 GM/30 ML CUP PO SCH ×2 (08:34→20:59)
[2017-09-20] MEDS: DOCUSATE SODIUM 100 MG/10 ML UDC PO SCH ×2 (08:34→20:58)
[2017-09-20] MEDS: VALPROIC ACID SYRUP 250 MG/5 ML UDC OG-TUBE SCH ×2 (08:35→20:59)
[2017-09-20] MEDS: cefTRIAXone INJ 1,000 MG in SODIUM CHLORIDE 0.9% INJ 100 ML IV SCH (08:35)
[2017-09-20] MEDS: CHOLECALCIFEROL (VIT D3) 1000 UNIT TAB PO SCH (08:35)
[2017-09-20] MEDS: LISINOPRIL 20 MG TAB PO SCH ×2 (08:35→20:59)
[2017-09-20] MEDS: HEPARIN SODIUM - SQ 10,000 UNITS/ML VIAL SQ SCH ×2 (08:35→21:00)
[2017-09-20] MEDS: TOLTERODINE TARTRATE 2 MG TAB PO SCH (08:35)
[2017-09-20] MEDS: FUROSEMIDE 40 MG TAB PO SCH (08:35)
[2017-09-20] MEDS: FAMOTIDINE 20 MG TAB NG SCH ×2 (08:36→20:59)
[2017-09-20] MEDS: MORPHINE SULFATE 4 MG/ML INJ IV PUSH PRN ×2 (08:39→13:00)
[2017-09-20] MEDS: POLYETHYLENE GLYCOL 17 GM PKG PO SCH ×2 (09:00→21:00)
[2017-09-20] MEDS: SENNOSIDES SYRUP 8.8 MG/5 ML CUP PO SCH ×2 (09:00→21:00)
[2017-09-20] MEDS: SODIUM CHLORIDE 0.9% FLUSH 10 ML FLUSH IV FLUSH SCH ×3 (09:00→20:57)
[2017-09-20] MEDS: INSULIN DETEMIR 100 UNITS/ML VIAL SQ SCH ×2 (09:00→21:00)
--- NOTE | 2017-09-20 10:26 | HHI.CCPN ---
Subjective Remarks/Hospital Course 57-year-old AA female . Date of admission 08/30/2017. Past medical history includes schizoaffective/bipolar, depression, seizure disorder, hypertension, dyslipidemia, diabetes and allergic rhinitis. She is not on any blood thinners or aspirin. This patient was walking from [employer] in approximately 6 AM this morning when she suffered a fall and landed on the right side of her face.. She states she slipped in the wet grass hitting her face on the concrete. No loss of consciousness. Not seizure activity noted. Not tongue biting. No incontinence of stool or urine. 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 Patient states that she's been having a headache and right-sided facial pain since. 08/30 CT of the brain showed a right frontotemporal subdural hematoma 1.6 cm with a 3 mm right to left shift. Maxillofacial CT revealed a nondisplaced right nasal fracture. CT spine negative. CBC showed normocytic anemia. BMP is pending. Elevated PTT coags at 33. Patient was loaded with 500 mg levetiracetam, given as needed for elevated blood pressure stabilized in the ED. Neurosurgical consultation was requested with Dr. Aiken. 08/31: Afebrile. CT brain revealed increased diameter right-sided subdural hematoma up to 1.9 cm. Shift is 1 mm right to left. Positive headache. No seizure activity. No real focal neurological deficits. 09/01: Patient subjective a weak left upper and lower extremity greater than right. Mumbling words. Stat CT brain revealed 2.6 cm image right intraparenchymal hemorrhage on the right temporal parietal region, 0.9 cm right cerebellar hemorrhage and bilateral subarachnoid hemorrhage convex's. Notified Dr. Aiken. Patient was intubated for airway protection and central line placed for hypertonic saline 09/02: Tmax 99.9. Improved subarachnoid hemorrhage. Stable right intraparenchymal hemorrhages. Potassium and phosphorus been replaced. No bowel movement. 09/03: Currently afebrile. Remains on propofol and fentanyl drips for sedation. Tolerating tube feeds at goal. Arousable with open eyes but not following commands currently. 09/04: Remains sedated, orally intubated on mechanical ventilation. Tolerating tube feeds. 09/05: Remains sedated, orally intubated on mechanical ventilation. Tolerating tube feeds. 09/06: Breathes over vent despite sedation. Withdraws limbs. 09/07: Remains sedated, orally intubated on mechanical ventilation. Tolerating tube feeds. 09/08: Will work toward extubation when OK with Neurosurgery. 09/09: Remains sedated, orally intubated on mechanical ventilation. Tolerating tube feeds. 09/10: Remains sedated, orally intubated on mechanical ventilation. Tolerating tube feeds. 09/11: Remains drowsy, orally intubated on mechanical ventilation. Tolerating tube feeds. Daily C Pap trials ongoing. Remains on nicardipine drip. 09/12: Remains drowsy, encephalopathic, orally intubated on mechanical ventilation. Tolerating tube feeds. Daily C Pap trials ongoing. Remains on nicardipine drip. 09/13: Drowsy, arousable, orally intubated on mechanical ventilation. Tolerating C Pap trial. Awaiting PEG tube today 09/14: Afebrile. Tolerating tube feeds at 1.5 at 45 cc an hour/goal. Positive BM. Will need percutaneous tracheostomy currently a day #14. Status post PEG tube I Dr. Gilliam Subjective 09/15: Failed extubation yesterday due to stridor. Upon intubation area was edematous. Currently receiving Decadron 48 hours. Attempt extubation tomorrow versus tracheostomy on Sunday. She is awake she will intermittently follow commands. 09/16: Patient awake and alert, on commands. Currently on CPAP trials doing well. Plan for trial of extubation this afternoon. Patient noted to have elevated glucose levels will DC vital high protein in place patient on Glucerna tube feeds. Per colleague Dr. Rodas, will restart DVT prophylaxis today, has been okayed by Neurosurgery. 09/17: Patient continues to be on sedation alert and following commands CPAP trials underway attempted SBT parameters yesterday which patient failed. Will continue CPAP trials today for possible trial of extubation. Attempted to contact son regarding possibility of tracheostomy placement, thus far unsuccessful in contacting Mr. Alejandre. 09/18: Tmax 99.0. Patient currently on no sedation comfortably remains on CPAP greater than 2 days Patient failed SBT trials yesterday afternoon , with elevated RSBI as well as no cuff leak. POA son Mr. Alejandre at bedside this a.m. , extensive of discussion regarding tracheostomy to include risk and benefits. Plan for tracheostomy tomorrow 09/19. 09/19: Tmax 99.9. No acute events overnight. Patient remains ventilator dependent #8.0 Shiley percutaneous tracheostomy placement this a.m. performed, uneventful. Disposition planning in progress. 09/20: Sedated, on mechanical ventilation via tracheostomy. Objective Vital Signs Date Time Temp Pulse Resp B/P (MAP) Pulse Ox O2 Delivery O2 Flow Rate FiO2 09/20/17 08:00 40 09/20/17 08:00 99.5 84 19 172/80 (110) 100 09/19/17 15:43 Ventilator Intake and Output 09/20/17 09/20/17 09/21/17 08:00 16:00 00:00 Intake Total 732 ml Output Total 425 ml Balance 307 ml Result Diagram: 09/20/17 0535 09/20/17 0535 Imaging Last Impressions Chest X-Ray 09/16/17 06 Signed Impressions: Service Date/Time: Saturday, September 16, 2017 04:54 - CONCLUSION: Persistent bilateral patchy pulmonary opacity, decreased on the left. Leonardo Muse MD Head CT 09/10/17 0600 Signed Impressions: Service Date/Time: Sunday, September 10, 2017 04:17 - CONCLUSION: Stable evolving intracranial hemorrhage with no new acute findings. Nacho Krishnan MD Abdomen X-Ray 09/01/17 0000 Signed Impressions: Service Date/Time: Friday, September 01, 2017 18:29 - CONCLUSION: Nasogastric tube coiled in the stomach with the tip projecting towards the GE junction. Migue Cuenca Jr., MD Maxillofacial CT 08/30/17 0000 Signed Impressions: Service Date/Time: August 15:13 - CONCLUSION: 1. There is a minimally depressed right nasal bone fracture with adjacent soft tissue swelling. No other fracture is visualized. 2. Please refer to head CT report for description of the right subdural hematoma. Nacho Buckley MD Lumbar Spine CT 08/30/17 0000 Signed Impressions: Service Date/Time: August 17:59 - CONCLUSION: Negative examination. Alec Latham MD Cervical Spine CT 08/30/17 0000 Signed Impressions: Service Date/Time: August 15:12 - CONCLUSION: 1. No acute fracture or subluxation. Skinny Muñiz MD Last Impressions Chest X-Ray 09/14/17 0000 Signed Impressions: Service Date/Time: Thursday, September 14, 2017 11:33 - CONCLUSION: 1. ET tube right main bronchus with reexpansion right lower lobe. 2. Developing opacity left base.. Stu Huynh MD FACR Head CT 09/10/17 0600 Signed Impressions: Service Date/Time: Sunday, September 10, 2017 04:17 - CONCLUSION: Stable evolving intracranial hemorrhage with no new acute findings. Nacho Krishnan MD Abdomen X-Ray 09/01/17 0000 Signed Impressions: Service Date/Time: Friday, September 01, 2017 18:29 - CONCLUSION: Nasogastric tube coiled in the stomach with the tip projecting towards the GE junction. Migue Cuenca Jr., MD Maxillofacial CT 08/30/17 0000 Signed Impressions: Service Date/Time: August 15:13 - CONCLUSION: 1. There is a minimally depressed right nasal bone fracture with adjacent soft tissue swelling. No other fracture is visualized. 2. Please refer to head CT report for description of the right subdural hematoma. Nacho Buckley MD Lumbar Spine CT 08/30/17 0000 Signed Impressions: Service Date/Time: , August 30, 2017 17:59 - CONCLUSION: Negative examination. Alec Latham MD Cervical Spine CT 08/30/17 0000 Signed Impressions: Service Date/Time: August 15:12 - CONCLUSION: 1. No acute fracture or subluxation. Skinny Muñiz MD Objective Remarks GENERAL: 57-year-old AA female, resting in bed, sedated, arousable, on mechanical ventilation via tracheostomy SKIN: Warm and dry. HEAD: Status post right craniotomy with subdural. EYES: Pupils equal and round about 3 mm bilaterally and reactive. No scleral icterus. No injection or drainage. ENT: No nasal bleeding or discharge. Mucous membranes pink and moist. NECK: Tracheostomy in place CARDIOVASCULAR: RRR. S1, S2. No S4. Without murmur. No JVD. RESPIRATORY: Clear to auscultation. Breath sounds equal bilaterally. No wheezes, rales or rhonchi GASTROINTESTINAL: Abdomen soft, obese, non-tender, nondistended. PEG tube site is clean dry and intact without erythema. Normoactive bowel sounds MUSCULOSKELETAL: Extremities without significant peripheral edema. No obvious deformities. Well perfused. NEUROLOGICAL: GCS 11 T . RASS 0. Alert, orally intubated, arouses on command. Moving extremities 4 on command. Procedures 09/14 PEG placement 09/19 percutaneous tracheostomy 8.0 [place] Date of Insertion: Sep 01, 2017 Line: Central Venous Catheter Side: Left Location: Internal, Jugular A/P Assessment and Plan Neuro/Psych: s/p right craniotomy with evacuation of subdural hematoma 2.6 cm right parietal/temporal intracranial hemorrhage, 0.9 cm right subdural hemorrhage and bilateral subarachnoid hemorrhage Right subdural hematoma - 1.6 cm fronto temporal with a 3 mm right to left shift Right closed nondisplaced nasal fracture Schizoaffective disorder Bipolar disorder Depression Seizure disorder NOS 09/19 Propofol infusion for ventilator synchrony reinitiated. Post tracheostomy placement. Goal of RASS -[address] brain 08/30 revealed a right frontal temporal subdural hematoma 1.6 cm thickness with a 3 mm right to left shift. Nondisplaced right nasal bone fracture. CT brain 08/31 revealed 2.6 cm right parietal intracranial hemorrhage, 0.9 cm right subdural hemorrhage and bilateral subarachnoid hemorrhage CT brain 09/01 revealed stable intraparenchymal hemorrhage improving subarachnoid hemorrhage at the convex CT Head 09/05 with stable areas of ICH/ SAH. EEG 08/31 revealed generalized slowing/encephalopathy. Disruption right side secondary to intraparenchymal hemorrhage. Levetiracetam 500 mg IV twice a day for seizure prophylaxis 7 days has been discontinued Resumed home dose of valproic acid 250mg BID via PEG tube. Depakote level 09/15 25 subtherapeutic Repeat Depakote level 09/20 Goal keep systolic blood pressure less than 140. Neurochecks Head of bed at 30 Stopped hypertonic saline 09/05 per neurosurgery. Evaluated by Dr. Aiken/neurosurgery Continue doxepin 10 mg by PEG tube daily Continue acetaminophen 650 mg every 6 hours when necessary fever Holding loratadine 10 mg by PEG tube daily Currently morphine sulfate 2-4 mg every 4 hours as needed for pain CV: Hypertension Dyslipidemia Increase metoprolol 100 mg via PEG tube Q6hrly for hypertension on 09/12. Prinivil 20mg BID. Amlodipine 10 mg PEG tube daily Continue isosorbide dinitrate 10 mg 3 times a day with hydralazine 100 mg every 8 hours Clonidine patch 0.3 mg every 7 days added 09/11 As needed labetalol, hydralazine, to keep systolic blood pressure less than 140. Continue atorvastatin 40 mg by mouth daily for dyslipidemia Resp: PRVC 16/500/40, nightly CPAP trials 03/26 40% FI02 Ventilator bundle Albuterol/ipratropium aerosols every 6 hours with albuterol aerosols every 2 hours prn dyspnea Spontaneous breathing trials daily-attempt T piece as tolerated. Percutaneous tracheostomy 09/19 GI: Resume tube feeding with vital 1.5 goal 50 cc. Status post PEG tube Dr. Gilliam 09/13 Famotidine 20 mg by PEG twice a day for GI prophylaxis Docusate sodium/senna t twice a day and polyethylene glycol twice a day for bowel regimen. Continue lactulose 30 cc twice a day as well : Incontinence Porter catheter if indicated for accurate I's and O's in a critically ill patient Continue Tolterodine 2 mg by mouth daily. Endo: Diabetes History of hypothyroidism/thyroid nodules Holding metformin 1000 mg daily and Linagliptin 5 mg daily for diabetes. Sliding-scale insulin with Accu-Cheks to maintain euglycemia Increase Insulin Detemir to 20 units twice a day Renal: History of renal cell carcinoma status post right nephrectomy KVO IVF 09/05 Maintain Porter patient on IV diuretics Monitor urine output Accurate I's and O's Heme: Normocytic anemia Elevated PTT Thrombocytopenia Monitor CBC daily. Follow trends Does not meet transfusion thresholds at this time ID: Patient noted to have fevers and left shift with bands noted on peripheral smear. Obtained allen cultures and initiated empiric antibiotic coverage with IV Zosyn 09/09, discontinued on 09/11 as urine culture growing Escherichia coli sensitive to Rocephin. De-escalated to Rocephin 1 g IV daily starting 09/11. Management per infectious disease FEN: Hypophosphatemia Hypokalemia Replace electrolytes as clinically indicated per ICU electrolyte protocol. Resumed cholecalciferol 1000 U daily. MSK: Osteoarthritis Physical therapy evaluate and treat Access -PIV's x 2 Prophylaxis - GI famotidine - DVT- SCD. Per neurosurgery initiate heparin 5000 u BID (11/5) Dispo: Discussed with PLASMA PROCESSING TECHNICIAN at bedside.Dr. Ochoa attempted to call son Oscar Alejandre [phone], S/P percutaneous tracheostomy, to provide update ,unable to contact. Level 3 follow-up Skyler Taylor MD Sep 20, 2017 10:26
--- NOTE | 2017-09-20 13:05 | HHI.GIFU ---
Subjective Remarks Reconsulted for leakage around peg tube. Pt is mildly distended. She does complain of abdominal pain and has mild diffuse abdominal tenderness on exam. Small amount of purulent drainage from around the peg. (Ivis Stanley) Objective Vitals I&O Vital Signs Date Time Temp Pulse Resp B/P (MAP) Pulse Ox O2 Delivery O2 Flow Rate FiO2 09/20/17 12:09 97 40 09/20/17 10:00 90 09/20/17 08:00 40 09/20/17 08:00 99.5 84 19 172/80 (110) 100 09/20/17 08:00 84 09/20/17 06:00 70 09/20/17 04:00 40 09/20/17 04:00 72 09/20/17 04:00 100.0 72 20 136/71 (92) 100 09/20/17 03:47 100 40 09/20/17 02:00 65 09/20/17 00:08 100 50 09/20/17 00:00 100.0 72 20 113/69 (84) 100 09/20/17 00:00 72 09/20/17 00:00 50 09/19/17 22:00 60 09/19/17 20:19 100 50 09/19/17 20:00 60 09/19/17 20:00 99.1 60 20 125/68 (87) 100 09/19/17 20:00 60 09/19/17 18:00 61 09/19/17 16:00 60 09/19/17 16:00 60 09/19/17 16:00 98.2 60 20 108/70 (83) 100 09/19/17 15:43 99 Ventilator 60 09/19/17 14:00 62 I/O 09/19/17 09/19/17 09/19/17 09/20/17 09/20/17 09/20/17 07:00 15:00 23:00 07:00 15:00 23:00 Intake Total 370 ml 100 ml 284 ml 732 ml Output Total 650 ml 1500 ml 425 ml Balance -280 ml 100 ml -1216 ml 307 ml IV Total 100 ml 100 ml 189 ml Tube Feeding 170 ml 64 ml 343 ml Other 200 ml 120 ml 200 ml Output Urine Total 650 ml 1500 ml 425 ml # Bowel Movements 0 0 0 Laboratory Laboratory Tests Test 09/20/17 05:35 White Blood Count 12.3 Red Blood Count 3.58 Hemoglobin 9.6 Hematocrit 29.8 Mean Corpuscular Volume 83.4 Mean Corpuscular Hemoglobin 26.8 Mean Corpuscular Hemoglobin Concent 32.1 Red Cell Distribution Width 15.4 Platelet Count 499 Mean Platelet Volume 8.3 Blood Urea Nitrogen 15 Creatinine 0.79 Random Glucose 181 Calcium Level 9.9 Phosphorus Level 3.1 Magnesium Level 2.2 Sodium Level 139 Potassium Level 4.0 Chloride Level 107 Carbon Dioxide Level 23.5 Anion Gap 9 Estimat Glomerular Filtration Rate 90 Valproic Acid (Depakene) Level 34 Date/Time Source Procedure Growth Status 09/09/17 13:33 Blood Peripheral Aerobic Blood Culture - Final NO GROWTH IN 5 DAYS Complete 09/09/17 13:33 Blood Peripheral Anaerobic Blood Culture - Final NO GROWTH IN 5 DAYS Complete 09/09/17 10:50 Sputum Endotracheal Gram Stain - Final Complete 09/09/17 10:50 Sputum Endotracheal Sputum Culture - Final HEAVY GROWTH NORMAL RESPIRATORY ALFREDO Complete 09/09/17 09:42 Urine Catheterized Urine Urine Culture - Final Escherichia Coli Complete Imaging Last Impressions Chest X-Ray 09/20/17 0600 Signed Impressions: Service Date/Time: September 05:16 - CONCLUSION: 1. Subsegmental atelectasis right base. There has been no significant change when compared to the prior exam. Darius Harris MD Head CT 09/10/17 0600 Signed Impressions: Service Date/Time: Sunday, September 10, 2017 04:17 - CONCLUSION: Stable evolving intracranial hemorrhage with no new acute findings. Nacho Krishnan MD Abdomen X-Ray 09/01/17 0000 Signed Impressions: Service Date/Time: Friday, September 01, 2017 18:29 - CONCLUSION: Nasogastric tube coiled in the stomach with the tip projecting towards the GE junction. Migue Cuenca Jr., MD Maxillofacial CT 08/30/17 0000 Signed Impressions: Service Date/Time: August 15:13 - CONCLUSION: 1. There is a minimally depressed right nasal bone fracture with adjacent soft tissue swelling. No other fracture is visualized. 2. Please refer to head CT report for description of the right subdural hematoma. Nacho Buckley MD Lumbar Spine CT 08/30/17 0000 Signed Impressions: Service Date/Time: August 17:59 - CONCLUSION: Negative examination. Alec Latham MD Cervical Spine CT 08/30/17 0000 Signed Impressions: Service Date/Time: August 15:12 - CONCLUSION: 1. No acute fracture or subluxation. Skinny Muñiz MD Physical Exam HEENT: Normocephalic; atraumatic; no jaundice. CHEST: Resp. even/unlabored. Course breath sounds. Trach- CPAP CARDIAC: RRR ABDOMEN: Soft, mildly distended, Mild diffuse tenderness, no hepatosplenomegaly ; bowel sounds are present in all four quadrants. PEG tube site with small amount of purulent drainage EXTREMITIES: Generalized edema. SKIN: Normal; no rash; no jaundice. [employer] INSTALLER: Lethargic (Ivis Stanley) Assessment and Plan Plan ASSESSMENT - Reconsulted for drainage at PEG tube site. Small amount of purulent drainage noted from PEG tube site. No redness/swelling. Will get C/S. She is on Ceftriaxone. - Abdominal distention, suspect ileus. Mildly distended, but soft. Last BM on 09/18. On Miralax, Senakot, Colace. Will start Reglan and get KUB to r/o ileus. - Dysphagia, FEN. Pt currently in the ICU for TBI/SDH/SAH. S/P Craniotomy for evacuation. S/P EGD with PEG tube placement (09/14/17)---> 1. The upper, middle, and distal third of the esophagus were carefully inspected and no abnormalities were noted. The z-line was well seen at the GEJ. The endoscope was pushed into the fundus which was normal including a retroflexed view. The antrum, first and second part of the duodenum were unremarkable. 2. 20 F PEG tube placed successfully. - Resp. Failure. S/P Tracheostomy, on CPAP - Anemia, 9.6/29.8. - S/P Fall, TBI/SDH/SAH, per NSx. PLAN - NPO until KUB - KUB abdomen - Reglan 10mg IV q8h - PEG tube site drainage C/S - Cont. Ceftriaxone - Cont. Miralax - Cont. Senakot - Cont. Colace - Supportive care - Further recommendations to follow based on results of above - Pt seen and examined by Dr. Gilliam and myself and this note is written on his behalf (Ivis Stanley) Physician Comments Seen and examined. Agree with the plan as above. Will follow up with you. (Bandar Gilliam MD) Ivis Stanley Sep 20, 2017 13:05 Bandar Gilliam MD Sep 20, 2017 13:32
[2017-09-20] MEDS: METOCLOPRAMIDE HCL 10 MG/2 ML VIAL IV PUSH SCH ×2 (14:41→21:10)
--- NOTE | 2017-09-20 14:41 | RADRPT ---
EXAM DATE/TIME: 09/20/2017 13:33 [facility] COMPARISON: ABDOMEN SINGLE VIEW, September 01, 2017, 18:29. INDICATIONS : Ileus. MEDICAL HISTORY : Hypertension. Renal cell carcinoma. SURGICAL HISTORY : Cholecystectomy. Tubal ligation. Nephrectomy, right. ENCOUNTER: Initial ACUITY: 3 weeks PAIN SCORE: Non-responsive. LOCATION: Bilateral abdomen FINDINGS: Supine view of the abdomen was performed. There is some air distention of the colon and small bowel l oops in a diffuse pattern characteristic of a hypodynamic ileus. No pneumoperitoneum. Gastrostomy tub e projects over the left upper abdominal quadrant. Surgical clips in the right upper abdominal quadra nt are characteristic of a reported history of prior nephrectomy with additional surgical clips in th e right lower abdomen. Osseous structures are intact.. CONCLUSION: 1. Bowel gas pattern characteristic of a hypodynamic ileus. 2. Gastrostomy tube projects over the left upper abdominal quadrant. Charles Brian MD on September 20, 2017 at 14:36 Board Certified Radiologist. This report was verified electronically.
--- NOTE | 2017-09-20 15:58 | HHI.IDPN ---
Subjective Subjective Remarks pt became hypotensive, but responded to fluids co abd pain no fever drainage around PEG noted - lee coloured Antibiotics CFTX Allergies: Coded Allergies: haloperidol (Unverified Allergy, Severe, 08/30/17) olanzapine (Unverified Allergy, Severe, 08/30/17) sertraline (Unverified Allergy, Unknown, 08/30/17) Objective . Vital Signs Date Time Temp Pulse Resp B/P (MAP) Pulse Ox O2 Delivery O2 Flow Rate FiO2 09/20/17 14:00 62 09/20/17 13:40 100 40 09/20/17 12:09 97 40 09/20/17 12:00 40 09/20/17 12:00 99.5 98 19 140/70 (93) 97 09/20/17 12:00 98 09/20/17 10:00 90 09/20/17 08:00 40 09/20/17 08:00 99.5 84 19 172/80 (110) 100 09/20/17 08:00 84 09/20/17 06:00 70 09/20/17 04:00 40 09/20/17 04:00 72 09/20/17 04:00 100.0 72 20 136/71 (92) 100 09/20/17 03:47 100 40 09/20/17 02:00 65 09/20/17 00:08 100 50 09/20/17 00:00 100.0 72 20 113/69 (84) 100 09/20/17 00:00 72 09/20/17 00:00 50 09/19/17 22:00 60 09/19/17 20:19 100 50 09/19/17 20:00 60 09/19/17 20:00 99.1 60 20 125/68 (87) 100 09/19/17 20:00 60 09/19/17 18:00 61 09/19/17 16:00 60 09/19/17 16:00 60 09/19/17 16:00 98.2 60 20 108/70 (83) 100 . Laboratory Tests Test 09/19/17 04:13 09/20/17 05:35 White Blood Count 12.9 TH/MM3 12.3 TH/MM3 Red Blood Count 3.38 MIL/MM3 3.58 MIL/MM3 Hemoglobin 8.8 GM/DL 9.6 GM/DL Hematocrit 27.9 % 29.8 % Mean Corpuscular Volume 82.4 FL 83.4 FL Mean Corpuscular Hemoglobin 26.0 PG 26.8 PG Mean Corpuscular Hemoglobin Concent 31.5 % 32.1 % Red Cell Distribution Width 15.3 % 15.4 % Platelet Count 552 TH/MM3 499 TH/MM3 Mean Platelet Volume 8.0 FL 8.3 FL Laboratory Tests Test 09/19/17 04:13 09/20/17 05:35 Phosphorus Level 2.6 MG/DL 3.1 MG/DL Magnesium Level 2.0 MG/DL 2.2 MG/DL Blood Urea Nitrogen 15 MG/DL Creatinine 0.79 MG/DL Random Glucose 181 MG/DL Calcium Level 9.9 MG/DL Sodium Level 139 MEQ/L Potassium Level 4.0 MEQ/L Chloride Level 107 MEQ/L Carbon Dioxide Level 23.5 MEQ/L Anion Gap 9 MEQ/L Estimat Glomerular Filtration Rate 90 ML/MIN Imaging Last Impressions Chest X-Ray 09/20/17 0600 Signed Impressions: Service Date/Time: September 05:16 - CONCLUSION: 1. Subsegmental atelectasis right base. There has been no significant change when compared to the prior exam. Darius Harris MD Abdomen X-Ray 09/20/17 0000 Signed Impressions: Service Date/Time: September 13:33 - CONCLUSION: 1. Bowel gas pattern characteristic of a hypodynamic ileus. 2. Gastrostomy tube projects over the left upper abdominal quadrant. Charles Brian MD Head CT 09/10/17 0600 Signed Impressions: Service Date/Time: Sunday, September 10, 2017 04:17 - CONCLUSION: Stable evolving intracranial hemorrhage with no new acute findings. Nacho Krishnan MD Maxillofacial CT 08/30/17 0000 Signed Impressions: Service Date/Time: August 15:13 - CONCLUSION: 1. There is a minimally depressed right nasal bone fracture with adjacent soft tissue swelling. No other fracture is visualized. 2. Please refer to head CT report for description of the right subdural hematoma. Nacho Buckley MD Lumbar Spine CT 08/30/17 0000 Signed Impressions: Service Date/Time: August 17:59 - CONCLUSION: Negative examination. Alec Stone, MD Cervical Spine CT 08/30/17 0000 Signed Impressions: Service Date/Time: August 15:12 - CONCLUSION: 1. No acute fracture or subluxation. Skinny Muñiz MD Physical Exam CONSTITUTIONAL/GENERAL: This is an obese female patient, in no apparent distress. TUBES/LINES/DRAINS: SKIN: No jaundice, rashes, or lesions. Skin temperature appropriate. Not diaphoretic. HEAD: R parietal incision - dry, clean Normocephalic. EYES: Pupils equal and round and reactive. Extraocular motions intact. No scleral icterus. No injection or drainage. Fundi not examined. ENT: Hearing grossly normal. Nose without bleeding or purulent drainage. Oral mucosae without visible erythema, exudates, masses, or lesions. NECK: Trach in place Supple, nontender. No palpable thyroid enlargement or nodularity. CARDIOVASCULAR: Regular rate and rhythm without murmurs, gallops, or rubs. No JVD. Peripheral pulses symmetric. RESPIRATORY/CHEST: Symmetric, unlabored respirations. Clear to auscultation. Breath sounds equal bilaterally. No wheezes, rales, or rhonchi. GASTROINTESTINAL: Abdomen soft, diffusely tender, at least moderately distended. No hepato-splenomegaly, or palpable masses. No guarding. Bowel sounds present. PEG inplace with minimal lee odorless drainage on the dressing GENITOURINARY: Without palpable bladder distension. Porter catheter in place with clear yellow MUSCULOSKELETAL: Extremities without clubbing, cyanosis, or edema. No joint tenderness or effusion noted. No calf tenderness. No mottling or clubbing. LYMPHATICS: No palpable cervical or supraclavicular adenopathy. NEURO: fully nawake and alert, follows commands and is conversant PSYCHIATRIC: calm, pleasant Assessment & Plan Remarks Intracranial bleed, sp trauma Acute VDRF sp trach Low grade fever Leukocytosis E.coli UTI, on CFTX New hypotensive episode, New ileus KUB with hypodynamic ileus. PEG site drainage ? infx repeat blood, urine , sputum clx CT abd/pel stool for C.diff dc CFTX start [place], [place], micafungin Dacia De Leon RN, MD Sep 20, 2017 15:58
[2017-09-20] MEDS ORDERED: Vancomycin Consult Pharmacy 1 EA OTHER SCH (16:00)
[2017-09-20] MEDS ORDERED: SODIUM CHLOR 0.9% 1000 ML INJ 1,000 ML IV ONE (17:00)
[2017-09-20] MEDS: PIPERACIL-TAZO 4.5 GM PREMIX 100 ML IV SCH ×2 (17:09→23:49)
[2017-09-20] MEDS ORDERED: DIATRIZOATE MEGLUM/DIATRIZOATE SOD 9 ML CUP PO ONE (17:15)
[2017-09-20 17:24] LABS: BLOOD, URINE NEG (NEG); COMMENT (UR) CATH-CULT NOT IND; CULTURE IF INDICATED CATH CULTURE NOT IND; GLUCOSE,URINE 300 mg/dL (NEG); HYALINE CAST, URINE 6 /lpf (RARE); KETONE, URINE NEG (NEG); MUCUS URINE FEW /lpf (OCC); NITRITE,URINE NEG (NEG); PH, URINE 5.5 (5.0-8.5); SQUAMOUS EPITHELIAL CELL URINE <1 /hpf (0-5); URINE COLOR YELLOW (YELLW/STRAW)
[2017-09-20] MEDS: VANCOMYCIN 1,000 MG/NS 250 ML IV SCH ×2 (17:38)
[2017-09-20] MEDS: MICAFUNGIN INJ 150 MG in SODIUM CHLORIDE 0.9% INJ 100 ML IV SCH (17:38)
[2017-09-20] MEDS: DOXEPIN HCL 10 MG CAP PO SCH (20:58)
[2017-09-20] MEDS: ATORVASTATIN 40 MG TAB PO SCH (20:59)
--- NOTE | 2017-09-20 21:13 | RADRPT ---
EXAM DATE/TIME: 09/20/2017 20:27 [facility] COMPARISON: ABDOMEN KUB ONLY, September 20, 2017, 13:33. INDICATIONS : Abdominal pain with distention and fever. Abnormal x-ray, possible ileus. ORAL CONTRAST: Prescribed oral contrast ingested. RADIATION DOSE: 26.90 CTDIvol (mGy) MEDICAL HISTORY : Hypertension. Diabetes. Renal carcinoma. SURGICAL HISTORY : Nephrectomy, right. Cholecystectomy.Tubal ligation.Peg tube placement. ENCOUNTER: Subsequent ACUITY: 3 days PAIN SCALE: 5/10 LOCATION: All quadrants. TECHNIQUE: Volumetric scanning of the abdomen and pelvis was performed. Using automated exposure control and ad justment of the mA and/or kV according to patient size, radiation dose was kept as low as reasonably achievable to obtain optimal diagnostic quality images. DICOM format image data is available electro nically for review and comparison. FINDINGS: LOWER LUNGS: Tiny bilateral pleural effusions with right basilar consolidation. LIVER: Homogeneous density without lesion. There is no dilation of the biliary tree. Prior cholecystectomy. SPLEEN: Normal size without lesion. PANCREAS: Within normal limits. KIDNEYS: Normal in size and shape. There is no mass, stone, or hydronephrosis. ADRENAL GLANDS: Within normal limits. VASCULAR: There is no aortic aneurysm. BOWEL/MESENTERY: Distended loops of large and small bowel. These are predominantly gas filled. A small amount of oral contrast is seen throughout the small bowel. No free air or free fluid. A gastrostomy tube is noted. ABDOMINAL WALL: Within normal limits. RETROPERITONEUM: There is no lymphadenopathy. BLADDER: Totally decompressed and contains a Porter.. REPRODUCTIVE: Within normal limits. INGUINAL: There is no lymphadenopathy or hernia. MUSCULOSKELETAL: Within normal limits for patient age. CONCLUSION: 1. Ileus type bowel gas pattern without free air or free fluid. 2. Prior cholecystectomy. Migue Cuenca Jr., MD on September 20, 2017 at 21:08 Board Certified Radiologist. This report was verified electronically.
[2017-09-21] VITALS (15 sets, daily range): BP systolic 153–176; BP diastolic 75–83; PULSE 57–94; RESP 12–21; TEMP 98.9–99.7; O2SAT 100
[2017-09-21] MEDS: MORPHINE SULFATE 4 MG/ML INJ IV PUSH PRN ×3 (00:15→16:31)
[2017-09-21] MEDS: hydrALAZINE HCL 100 MG TAB PO SCH ×3 (02:10→17:14)
[2017-09-21] MEDS: CHLORHEXIDINE GLUCONATE 2 % 1 PACK (2 CLOTHS) TOP SCH (04:00)
[2017-09-21] MEDS: ARTIFICIAL TEARS OPTH SOLN 15 ML BTL EACH EYE SCH ×3 (05:34→20:56)
[2017-09-21] MEDS: PIPERACIL-TAZO 4.5 GM PREMIX 100 ML IV SCH ×4 (05:34→21:02)
[2017-09-21] MEDS: VANCOMYCIN 1,000 MG/NS 250 ML IV SCH ×4 (05:34→17:15)
[2017-09-21] MEDS: METOPROLOL TARTRATE 100 MG TAB PO SCH ×4 (05:35→23:31)
[2017-09-21] MEDS: ISOSORBIDE DINITRATE 10 MG TAB PO SCH ×3 (05:35→20:56)
[2017-09-21] MEDS: METOCLOPRAMIDE HCL 10 MG/2 ML VIAL IV PUSH SCH ×3 (05:35→20:56)
[2017-09-21] MEDS: INSULIN NovoLIN REGULAR SUPPLEMENTAL SCALE SQ SCH ×5 (06:00→23:31)
[2017-09-21] MEDS: CHLORHEXIDINE 0.12% (ORAL KIT) 15 ML CUP MT SCH ×2 (08:00→19:44)
--- NOTE | 2017-09-21 08:12 | HHI.PR ---
Neuropsych Emotional Emotional: Intact: Emotional, Anxious/Fearful, Depressed/Sad, Hostile/Resentful , Irritable/Angry/Frustrate, Labile, Constricted/Blunted Behavior Behavior: Intact: Coping/Acceptance, Cooperative w/ Treatment, Motivation Cognitive Cognitive: Unable to Asses: Cognitive, Attention/Concentration, Confused/ Orientation, Insight/Awareness, Judgement/Problem-Solving, Memory Psychosocial Psychosocial: Moderate: Psychosocial, Family/Other Adjustment, Realistic Expectation, Unable to Asses: Self-Esteem/Confidence Progress Notes/Response to Tx Contents of Sessions: Adjustment, Level of Consciousness Time with Patient: 15 minutes Premorbid psychological status Premorbid Cognitive, Emotional and Behavioral Status: Unable to Assess. The patient's history is unclear other than she had prior psychiatric diagnoses in the past. Behavioral Reactions of Patient and Family/Support System: Unable to Assess. The patients family is likely experiencing ongoing issues of adjustment given the nature of the injury, and this aspect of recovery will require ongoing monitoring. Emotional/Behavioral Status of Patient and Family/Support System: Unable to Assess. Pertinent issues, if appropriate to this patients clinical care, are described in detail above. Maximizing acute care outcome It is recommended that the patient be monitored for emergent behavioral impulsivity as the medical condition evolves. This patients neuropathological challenges may limit their rehabilitation potential going forward, and these challenges will require specialized therapeutic skills to maximize outcome. Additionally, the patients family is experiencing ongoing issues of adjustment given the traumatic nature of the injury, and they may benefit from ongoing psychological assistance. Anticipated Problems Ongoing areas of concern will include behavioral impulsivity, lack of insight and judgment, which is expected to improve with time and treatment. Presently , the patient remains intubated and sedated. Treatment Plan This clinician will continue to follow with you throughout the course of this patients acute care treatment, and I will be available to meet with the patient s family/support system to facilitate their understanding and the ongoing care of their family member. The goals of neuropsychological intervention shall be both educational and supportive to the family/support system as is deemed clinically appropriate. [facility] Level: V:Confused-non agitated Impression This 57 year old woman is s/p TBI 2T fall on 08/31/2017, who is now intubated and sedated. She has a history of schizoaffective disorder prior to her TBI. Diagnosis: (1) Major neurocognitive disorder as late effect of traumatic brain injury without behavioral disturbance (2) Schizoaffective disorder Status: Acute Progress Note Narrative Ongoing follow-up of patient seen bedside. This is day 22 post injury. The patient is awake, alert and following commands. She is mechanically ventilated via trach. No new neurobehavioral issues. She remains [place]. I will continue to follow. Problem Qualifiers (1) Schizoaffective disorder: Qualified Codes: F25.0 - Schizoaffective disorder, bipolar type Bhavik Crabtree PhD Sep 21, 2017 8:12 am
[2017-09-21] MEDS: TOLTERODINE TARTRATE 2 MG TAB PO SCH (08:45)
[2017-09-21] MEDS: LISINOPRIL 20 MG TAB PO SCH ×2 (08:46→19:43)
[2017-09-21] MEDS: FUROSEMIDE 40 MG TAB PO SCH (08:46)
[2017-09-21] MEDS: FAMOTIDINE 20 MG TAB NG SCH ×2 (08:46→19:43)
[2017-09-21] MEDS: VALPROIC ACID SYRUP 250 MG/5 ML UDC OG-TUBE SCH ×2 (08:46→19:43)
[2017-09-21] MEDS: LACTULOSE SYRUP 20 GM/30 ML CUP PO SCH ×2 (08:46→19:43)
[2017-09-21] MEDS: CHOLECALCIFEROL (VIT D3) 1000 UNIT TAB PO SCH (08:46)
[2017-09-21] MEDS: SENNOSIDES SYRUP 8.8 MG/5 ML CUP PO SCH ×2 (08:47→19:42)
[2017-09-21] MEDS: SODIUM CHLORIDE 0.9% FLUSH 10 ML FLUSH IV FLUSH SCH ×3 (08:47→19:44)
[2017-09-21] MEDS: HEPARIN SODIUM - SQ 10,000 UNITS/ML VIAL SQ SCH ×2 (08:47→19:42)
[2017-09-21] MEDS: POLYETHYLENE GLYCOL 17 GM PKG PO SCH ×2 (08:47→19:42)
[2017-09-21] MEDS: DOCUSATE SODIUM 100 MG/10 ML UDC PO SCH ×2 (08:47→19:43)
[2017-09-21] MEDS: INSULIN DETEMIR 100 UNITS/ML VIAL SQ SCH ×2 (08:47→19:44)
--- NOTE | 2017-09-21 11:03 | HHI.CCPN ---
Subjective Remarks/Hospital Course 57-year-old AA female . Date of admission 08/30/2017. Past medical history includes schizoaffective/bipolar, depression, seizure disorder, hypertension, dyslipidemia, diabetes and allergic rhinitis. She is not on any blood thinners or aspirin. This patient was walking from [employer] [employer] in approximately 6 AM this morning when she suffered a fall and landed on the right side of her face.. She states she slipped in the wet grass hitting her face on the concrete. No loss of consciousness. Not seizure activity noted. Not tongue biting. No incontinence of stool or urine. 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 Patient states that she's been having a headache and right-sided facial pain since. 08/30 CT of the brain showed a right frontotemporal subdural hematoma 1.6 cm with a 3 mm right to left shift. Maxillofacial CT revealed a nondisplaced right nasal fracture. CT spine negative. CBC showed normocytic anemia. BMP is pending. Elevated PTT coags at 33. Patient was loaded with 500 mg levetiracetam, given as needed for elevated blood pressure stabilized in the ED. Neurosurgical consultation was requested with Dr. Aiken. 08/31: Afebrile. CT brain revealed increased diameter right-sided subdural hematoma up to 1.9 cm. Shift is 1 mm right to left. Positive headache. No seizure activity. No real focal neurological deficits. 09/01: Patient subjective a weak left upper and lower extremity greater than right. Mumbling words. Stat CT brain revealed 2.6 cm image right intraparenchymal hemorrhage on the right temporal parietal region, 0.9 cm right cerebellar hemorrhage and bilateral subarachnoid hemorrhage convex's. Notified Dr. Aiken. Patient was intubated for airway protection and central line placed for hypertonic saline 09/02: Tmax 99.9. Improved subarachnoid hemorrhage. Stable right intraparenchymal hemorrhages. Potassium and phosphorus been replaced. No bowel movement. 09/03: Currently afebrile. Remains on propofol and fentanyl drips for sedation. Tolerating tube feeds at goal. Arousable with open eyes but not following commands currently. 09/04: Remains sedated, orally intubated on mechanical ventilation. Tolerating tube feeds. 09/05: Remains sedated, orally intubated on mechanical ventilation. Tolerating tube feeds. 09/06: Breathes over vent despite sedation. Withdraws limbs. 09/07: Remains sedated, orally intubated on mechanical ventilation. Tolerating tube feeds. 09/08: Will work toward extubation when OK with Neurosurgery. 09/09: Remains sedated, orally intubated on mechanical ventilation. Tolerating tube feeds. 09/10: Remains sedated, orally intubated on mechanical ventilation. Tolerating tube feeds. 09/11: Remains drowsy, orally intubated on mechanical ventilation. Tolerating tube feeds. Daily C Pap trials ongoing. Remains on nicardipine drip. 09/12: Remains drowsy, encephalopathic, orally intubated on mechanical ventilation. Tolerating tube feeds. Daily C Pap trials ongoing. Remains on nicardipine drip. 09/13: Drowsy, arousable, orally intubated on mechanical ventilation. Tolerating C Pap trial. Awaiting PEG tube today 09/14: Afebrile. Tolerating tube feeds at 1.5 at 45 cc an hour/goal. Positive BM. Will need percutaneous tracheostomy currently a day #14. Status post PEG tube I Dr. Gilliam Subjective 09/15: Failed extubation yesterday due to stridor. Upon intubation area was edematous. Currently receiving Decadron 48 hours. Attempt extubation tomorrow versus tracheostomy on Sunday. She is awake she will intermittently follow commands. 09/16: Patient awake and alert, on commands. Currently on CPAP trials doing well. Plan for trial of extubation this afternoon. Patient noted to have elevated glucose levels will DC vital high protein in place patient on Glucerna tube feeds. Per colleague Dr. Rodas, will restart DVT prophylaxis today, has been okayed by Neurosurgery. 09/17: Patient continues to be on sedation alert and following commands CPAP trials underway attempted SBT parameters yesterday which patient failed. Will continue CPAP trials today for possible trial of extubation. Attempted to contact son regarding possibility of tracheostomy placement, thus far unsuccessful in contacting Mr. Alejandre. 09/18: Tmax 99.0. Patient currently on no sedation comfortably remains on CPAP greater than 2 days Patient failed SBT trials yesterday afternoon , with elevated RSBI as well as no cuff leak. POA son Mr. Alejandre at bedside this a.m. , extensive of discussion regarding tracheostomy to include risk and benefits. Plan for tracheostomy tomorrow 09/19. 09/19: Tmax 99.9. No acute events overnight. Patient remains ventilator dependent #8.0 Shiley percutaneous tracheostomy placement this a.m. performed, uneventful. Disposition planning in progress. 09/20: Sedated, on mechanical ventilation via tracheostomy. 09/21: Drowsy, easily arousable. On mechanical ventilation via tracheostomy. Objective Vital Signs Date Time Temp Pulse Resp B/P (MAP) Pulse Ox O2 Delivery O2 Flow Rate FiO2 09/21/17 08:35 100 40 09/21/17 08:00 98.9 58 18 172/83 (112) 09/19/17 15:43 Ventilator Intake and Output 09/21/17 09/21/17 09/22/17 08:00 16:00 00:00 Intake Total 490 ml Output Total 1200 ml Balance -710 ml Result Diagram: 09/20/17 0535 09/20/17 0535 Imaging Last Impressions Chest X-Ray 09/16/17 06 Signed Impressions: Service Date/Time: Saturday, September 16, 2017 04:54 - CONCLUSION: Persistent bilateral patchy pulmonary opacity, decreased on the left. Leonardo Muse MD Head CT 09/10/17 0600 Signed Impressions: Service Date/Time: Sunday, September 10, 2017 04:17 - CONCLUSION: Stable evolving intracranial hemorrhage with no new acute findings. Nacho Krishnan MD Abdomen X-Ray 09/01/17 0000 Signed Impressions: Service Date/Time: Friday, September 01, 2017 18:29 - CONCLUSION: Nasogastric tube coiled in the stomach with the tip projecting towards the GE junction. Migue Cuenca Jr., MD Maxillofacial CT 08/30/17 0000 Signed Impressions: Service Date/Time: August 15:13 - CONCLUSION: 1. There is a minimally depressed right nasal bone fracture with adjacent soft tissue swelling. No other fracture is visualized. 2. Please refer to head CT report for description of the right subdural hematoma. Nacho Buckley MD Lumbar Spine CT 08/30/17 0000 Signed Impressions: Service Date/Time: August 17:59 - CONCLUSION: Negative examination. Alec Latham MD Cervical Spine CT 08/30/17 0000 Signed Impressions: Service Date/Time: August 15:12 - CONCLUSION: 1. No acute fracture or subluxation. Skinny Muñiz MD Last Impressions Chest X-Ray 09/14/17 0000 Signed Impressions: Service Date/Time: Thursday, September 14, 2017 11:33 - CONCLUSION: 1. ET tube right main bronchus with reexpansion right lower lobe. 2. Developing opacity left base.. Stu Huynh MD FACR Head CT 09/10/17 0600 Signed Impressions: Service Date/Time: Sunday, September 10, 2017 04:17 - CONCLUSION: Stable evolving intracranial hemorrhage with no new acute findings. Nacho Krishnan MD Abdomen X-Ray 09/01/17 0000 Signed Impressions: Service Date/Time: Friday, September 01, 2017 18:29 - CONCLUSION: Nasogastric tube coiled in the stomach with the tip projecting towards the GE junction. Migue Cuenca Jr., MD Maxillofacial CT 08/30/17 0000 Signed Impressions: Service Date/Time: August 15:13 - CONCLUSION: 1. There is a minimally depressed right nasal bone fracture with adjacent soft tissue swelling. No other fracture is visualized. 2. Please refer to head CT report for description of the right subdural hematoma. Nacho Buckley MD Lumbar Spine CT 08/30/17 0000 Signed Impressions: Service Date/Time: August 17:59 - CONCLUSION: Negative examination. Alec Latham MD Cervical Spine CT 08/30/17 0000 Signed Impressions: Service Date/Time: August 15:12 - CONCLUSION: 1. No acute fracture or subluxation. Skinny Muñiz MD Objective Remarks GENERAL: 57-year-old AA female, resting in bed, sedated, arousable, on mechanical ventilation via tracheostomy SKIN: Warm and dry. HEAD: Status post right craniotomy with subdural. EYES: Pupils equal and round about 3 mm bilaterally and reactive. No scleral icterus. No injection or drainage. ENT: No nasal bleeding or discharge. Mucous membranes pink and moist. NECK: Tracheostomy in place CARDIOVASCULAR: RRR. S1, S2. No S4. Without murmur. No JVD. RESPIRATORY: Clear to auscultation. Breath sounds equal bilaterally. No wheezes, rales or rhonchi GASTROINTESTINAL: Abdomen soft, obese, non-tender, nondistended. PEG tube site with some drainage around the insertion site. Normoactive bowel sounds MUSCULOSKELETAL: Extremities without significant peripheral edema. No obvious deformities. Well perfused. NEUROLOGICAL: GCS 11 T . RASS 0. Alert, orally intubated, arouses on command. Moving extremities 4 on command. Procedures 09/14 PEG placement 09/19 percutaneous tracheostomy 8.0 Sarah Date of Insertion: Sep 01, 2017 Line: Central Venous Catheter Side: Left Location: Internal, Jugular A/P Assessment and Plan Neuro/Psych: s/p right craniotomy with evacuation of subdural hematoma 2.6 cm right parietal/temporal intracranial hemorrhage, 0.9 cm right subdural hemorrhage and bilateral subarachnoid hemorrhage Right subdural hematoma - 1.6 cm fronto temporal with a 3 mm right to left shift Right closed nondisplaced nasal fracture Schizoaffective disorder Bipolar disorder Depression Seizure disorder NOS Keep off sedation as tolerated CT brain 08/30 revealed a right frontal temporal subdural hematoma 1.6 cm thickness with a 3 mm right to left shift. Nondisplaced right nasal bone fracture. CT brain 08/31 revealed 2.6 cm right parietal intracranial hemorrhage, 0.9 cm right subdural hemorrhage and bilateral subarachnoid hemorrhage CT brain 09/01 revealed stable intraparenchymal hemorrhage improving subarachnoid hemorrhage at the convex CT Head 09/05 with stable areas of ICH/ SAH. EEG 08/31 revealed generalized slowing/encephalopathy. Disruption right side secondary to intraparenchymal hemorrhage. Levetiracetam 500 mg IV twice a day for seizure prophylaxis 7 days has been discontinued Resumed home dose of valproic acid 250mg BID via PEG tube. Depakote level 09/15 25 subtherapeutic Repeat Depakote level 09/20 Goal keep systolic blood pressure less than 140. Neurochecks Head of bed at 30 Stopped hypertonic saline 09/05 per neurosurgery. Evaluated by Dr. Aiken/neurosurgery Continue doxepin 10 mg by PEG tube daily Continue acetaminophen 650 mg every 6 hours when necessary fever Holding loratadine 10 mg by PEG tube daily Currently morphine sulfate 2-4 mg every 4 hours as needed for pain CV: Hypertension Dyslipidemia Increase metoprolol 100 mg via PEG tube Q6hrly for hypertension on 09/12. Prinivil 20mg BID. Amlodipine 10 mg PEG tube daily Continue isosorbide dinitrate 10 mg 3 times a day with hydralazine 100 mg every 8 hours Clonidine patch 0.3 mg every 7 days added 09/11 As needed labetalol, hydralazine, to keep systolic blood pressure less than 140. Continue atorvastatin 40 mg by mouth daily for dyslipidemia Resp: PRVC 16/500/40, nightly CPAP trials 03/26 40% FI02. Ventilator bundle Albuterol/ipratropium aerosols every 6 hours with albuterol aerosols every 2 hours prn dyspnea Spontaneous breathing trials daily-attempt T piece as tolerated. Percutaneous tracheostomy 09/19 GI: Resume tube feeding with vital 1.5 goal 50 cc. Status post PEG tube Dr. Gilliam 09/13 Famotidine 20 mg by PEG twice a day for GI prophylaxis Docusate sodium/senna t twice a day and polyethylene glycol twice a day for bowel regimen. Continue lactulose 30 cc twice a day as well : Incontinence Porter catheter if indicated for accurate I's and O's in a critically ill patient Continue Tolterodine 2 mg by mouth daily. Endo: Diabetes History of hypothyroidism/thyroid nodules Holding metformin 1000 mg daily and Linagliptin 5 mg daily for diabetes. Sliding-scale insulin with Accu-Cheks to maintain euglycemia Increase Insulin Detemir to 20 units twice a day Renal: History of renal cell carcinoma status post right nephrectomy KVO IVF 09/05 Maintain Porter patient on IV diuretics Monitor urine output Accurate I's and O's Heme: Normocytic anemia Elevated PTT Thrombocytopenia Monitor CBC daily. Follow trends Does not meet transfusion thresholds at this time ID: Sepsis PEG site infection UTI Patient noted to have fevers and left shift with bands noted on peripheral smear. Obtained allen cultures and initiated empiric antibiotic coverage with IV Zosyn 09/09, discontinued on 09/11 as urine culture growing Escherichia coli sensitive to Rocephin. De-escalated to Rocephin 1 g IV daily starting 09/11. PEG site noted to be infected with purulent drainage. Antibiotic brought into Zosyn/vancomycin/micafungin per ID on 09/20. Cultures pending. FEN: Hypophosphatemia Hypokalemia Replace electrolytes as clinically indicated per ICU electrolyte protocol. Resumed cholecalciferol 1000 U daily. MSK: Osteoarthritis Physical therapy evaluate and treat Access -PIV's x 2 Prophylaxis - GI famotidine - DVT- SCD. Per neurosurgery initiate heparin 5000 u BID (09/16) Dispo: Discussed with DIRECT SERVICE WORKER at bedside.Dr. Ochoa attempted to call son Oscar Alejandre [phone], S/P percutaneous tracheostomy, to provide update ,unable to contact. Level 3 follow-up Skyler Taylor MD Sep 21, 2017 11:03
[2017-09-21 12:03] LABS: C. DIFF EPI 027 PRESUMPTIVE NEGATIVE (NEGATIVE)
--- NOTE | 2017-09-21 12:11 | HHI.GIFU ---
Subjective Remarks Pt resting in bed. Complaining of abdominal pain. Denies N/V. PEG tube site with no active drainage, not currently on TF. Exam revealed abdominal distension, mild diffuse abdominal tenderness, and active bowel sounds x 4. (Vickie Reynoso HIGHWAY ENGINEERING TECHNICIAN) Objective Vitals I&O Vital Signs Date Time Temp Pulse Resp B/P (MAP) Pulse Ox O2 Delivery O2 Flow Rate FiO2 09/21/17 10:00 79 09/21/17 08:35 100 40 09/21/17 08:00 57 09/21/17 08:00 40 09/21/17 08:00 98.9 58 18 172/83 (112) 100 09/21/17 06:00 79 09/21/17 04:51 100 40 09/21/17 04:00 68 09/21/17 04:00 40 09/21/17 04:00 99.1 68 16 176/81 (112) 100 09/21/17 02:00 62 09/21/17 00:00 40 09/21/17 00:00 68 09/21/17 00:00 99.3 68 19 153/80 (104) 100 09/20/17 23:58 100 40 09/20/17 22:00 70 09/20/17 20:43 100 40 09/20/17 20:15 100 100 09/20/17 20:00 99.3 62 15 150/81 (104) 100 09/20/17 20:00 40 09/20/17 20:00 62 09/20/17 18:00 63 09/20/17 16:28 100 40 09/20/17 16:00 71 09/20/17 16:00 40 09/20/17 16:00 99.0 71 18 139/76 (97) 100 09/20/17 14:00 62 09/20/17 13:40 100 40 09/20/17 12:09 97 40 09/20/17 12:00 40 09/20/17 12:00 99.5 98 19 140/70 (93) 97 09/20/17 12:00 98 I/O 09/20/17 09/20/17 09/20/17 09/21/17 09/21/17 09/21/17 07:00 15:00 23:00 07:00 15:00 23:00 Intake Total 732 ml 100 ml 1690 ml 240 ml 340 ml Output Total 425 ml 1100 ml 1200 ml Balance 307 ml 100 ml 590 ml -960 ml 340 ml IV Total 189 ml 100 ml 1450 ml 200 ml 340 ml Tube Feeding 343 ml 40 ml Other 200 ml 200 ml 40 ml Output Urine Total 425 ml 1100 ml 1200 ml # Bowel Movements 0 1 2 Laboratory Laboratory Tests Test 09/20/17 16:35 09/21/17 10:30 Urine Color YELLOW Urine Turbidity CLEAR Urine pH 5.5 Urine Specific [place] 1.019 Urine Protein TRACE Urine Glucose (UA) 300 Urine Ketones NEG Urine Occult Blood NEG Urine Nitrite NEG Urine Bilirubin NEG Urine Urobilinogen LESS THAN 2.0 Urine Leukocyte Esterase NEG Urine RBC 3 Urine WBC 2 Urine Squamous Epithelial Cells <1 Urine Hyaline Casts 6 Urine Mucus FEW Microscopic Urinalysis Comment CATH-CULT NOT IND Date/Time Source Procedure Growth Status 09/20/17 16:51 Blood Peripheral Aerobic Blood Culture - Preliminary NO GROWTH IN 1 DAY Resulted 09/20/17 16:51 Blood Peripheral Anaerobic Blood Culture - Preliminary NO GROWTH IN 1 DAY Resulted 09/20/17 16:35 Sputum Endotracheal Gram Stain - Final Resulted 09/20/17 16:35 Sputum Endotracheal Sputum Culture Pending Resulted 09/09/17 09:42 Urine Catheterized Urine Urine Culture - Final Escherichia Coli Complete 09/20/17 13:10 Wound Abdomen Gram Stain - Final Resulted 09/20/17 13:10 Wound Abdomen Wound Culture Pending Resulted Imaging Last Impressions Chest X-Ray 09/20/17 0600 Signed Impressions: Service Date/Time: September 05:16 - CONCLUSION: 1. Subsegmental atelectasis right base. There has been no significant change when compared to the prior exam. Darius Harris MD Abdomen/Pelvis CT 09/20/17 0000 Signed Impressions: Service Date/Time: September 20:27 - CONCLUSION: 1. Ileus type bowel gas pattern without free air or free fluid. 2. Prior cholecystectomy. Migue Cuenca Jr., MD Abdomen X-Ray 09/20/17 0000 Signed Impressions: Service Date/Time: September 13:33 - CONCLUSION: 1. Bowel gas pattern characteristic of a hypodynamic ileus. 2. Gastrostomy tube projects over the left upper abdominal quadrant. Charles Brian MD Head CT 09/10/17 0600 Signed Impressions: Service Date/Time: Sunday, September 10, 2017 04:17 - CONCLUSION: Stable evolving intracranial hemorrhage with no new acute findings. Nacho Krishnan MD Maxillofacial CT 08/30/17 0000 Signed Impressions: Service Date/Time: , August 30, 2017 15:13 - CONCLUSION: 1. There is a minimally depressed right nasal bone fracture with adjacent soft tissue swelling. No other fracture is visualized. 2. Please refer to head CT report for description of the right subdural hematoma. Nacho Buckley MD Lumbar Spine CT 08/30/17 0000 Signed Impressions: Service Date/Time: , August 30, 2017 17:59 - CONCLUSION: Negative examination. Alec Latham MD Cervical Spine CT 08/30/17 0000 Signed Impressions: Service Date/Time: , August 30, 2017 15:12 - CONCLUSION: 1. No acute fracture or subluxation. Skinny Muñiz MD Physical Exam HEENT: Normocephalic; atraumatic; no jaundice. CHEST: Resp. even/unlabored. Trach. CARDIAC: RRR ABDOMEN: Soft, mildly distended, Mild diffuse tenderness, no hepatosplenomegaly ; bowel sounds are present in all four quadrants. PEG tube site with no active drainage. EXTREMITIES: Generalized edema. SKIN: Normal; no rash; no jaundice. CONCRETE MASON: Lethargic (Vickie Reynoso HIGHW[employer] ENGINEERING TECHNICIAN) Assessment and Plan Plan ASSESSMENT - Reconsulted for drainage at PEG tube site. No drainage noted from PEG tube site today. No redness/swelling. Pending C/S. She is on Vancomycin and Zosyn. ID following. - Abdominal distention, mild but soft. KUB (09/21/17) ---> 1. Bowel gas pattern characteristic of a hypodynamic ileus 2. Gastrostomy tube projects over the left upper abdominal quadrant. Will start trickle TF and continue Reglan. 3 BMs since yesterday. - Dysphagia, FEN. Pt currently in the ICU for TBI/SDH/SAH. S/P Craniotomy for evacuation. S/P EGD with PEG tube placement (09/14/17)---> 1. The upper, middle, and distal third of the esophagus were carefully inspected and no abnormalities were noted. The z-line was well seen at the GEJ. The endoscope was pushed into the fundus which was normal including a retroflexed view. The antrum, first and second part of the duodenum were unremarkable. 2. 20 F PEG tube placed successfully. - Resp. Failure. S/P Tracheostomy, on mechanical ventilation - Anemia, Labs from (09/20/17) 9.6/29.8. No CBC from this morning - S/P Fall, TBI/SDH/SAH, per NSx. 09/21/17 - Ileus. Mild abdominal distension- KUB (09/21/17) ---> 1. Bowel gas pattern characteristic of a hypodynamic ileus 2. Gastrostomy tube projects over the left upper abdominal quadrant. Will start trickle TF and continue Reglan. 3 BMs since yesterday. Repeat KUB in AM - PEG tune drainage- none noted today- pending C/S- ID following- continue Vancomycin and Zosyn PLAN - Start trickle tube feed at 20cc/hr (Glucerna 1.5)- eap clinician recommended goal rate of 35cc/hr- will reassess tomorrow if KUB improving and tolerating TB at 20cc/hr - KUB abdomen in am - Continue Reglan 10mg IV q8h - PEG tube site drainage- pending C/S - Cont. Vancomycin and Zosyn- ID following - Cont. Miralax - Cont. Senakot - Cont. Colace - Supportive care - Further recommendations to follow based on results of above - Pt seen and examined by Dr. Gilliam and myself and this note is written on his behalf (Vickie Reynoso) Physician Comments Agree with plan as above. Will follow up with you. (Bandar Gilliam MD) Vickie Reynoso Sep 21, 2017 12:11 Bandar Gilliam MD Sep 21, 2017 13:55
--- NOTE | 2017-09-21 15:39 | HHI.IDPN ---
Subjective Subjective Remarks improved abd pain no fever, though Tmax was 99.7 Antibiotics CFTX Allergies: Coded Allergies: haloperidol (Unverified Allergy, Severe, 08/30/17) olanzapine (Unverified Allergy, Severe, 08/30/17) sertraline (Unverified Allergy, Unknown, 08/30/17) Objective . Vital Signs Date Time Temp Pulse Resp B/P (MAP) Pulse Ox O2 Delivery O2 Flow Rate FiO2 09/21/17 14:00 70 09/21/17 12:00 79 09/21/17 12:00 99.7 70 15 157/76 (103) 100 09/21/17 10:00 79 09/21/17 08:35 100 40 09/21/17 08:00 57 09/21/17 08:00 40 09/21/17 08:00 98.9 58 18 172/83 (112) 100 09/21/17 06:00 79 09/21/17 04:51 100 40 09/21/17 04:00 68 09/21/17 04:00 40 09/21/17 04:00 99.1 68 16 176/81 (112) 100 09/21/17 02:00 62 09/21/17 00:00 40 09/21/17 00:00 68 09/21/17 00:00 99.3 68 19 153/80 (104) 100 09/20/17 23:58 100 40 09/20/17 22:00 70 09/20/17 20:43 100 40 09/20/17 20:15 100 100 09/20/17 20:00 99.3 62 15 150/81 (104) 100 09/20/17 20:00 40 09/20/17 20:00 62 09/20/17 18:00 63 09/20/17 16:28 100 40 09/20/17 16:00 71 09/20/17 16:00 40 09/20/17 16:00 99.0 71 18 139/76 (97) 100 09/21/17 09/21/17 09/22/17 15:00 23:00 07:00 Intake Total 460 ml Output Total 1850 ml Balance -1390 ml IV Total 340 ml Tube Irrigant 120 ml Output Urine Total 1850 ml # Bowel Movements 2 . Laboratory Tests Test 09/20/17 05:35 White Blood Count 12.3 TH/MM3 Red Blood Count 3.58 MIL/MM3 Hemoglobin 9.6 GM/DL Hematocrit 29.8 % Mean Corpuscular Volume 83.4 FL Mean Corpuscular Hemoglobin 26.8 PG Mean Corpuscular Hemoglobin Concent 32.1 % Red Cell Distribution Width 15.4 % Platelet Count 499 TH/MM3 Mean Platelet Volume 8.3 FL Laboratory Tests Test 09/20/17 05:35 Blood Urea Nitrogen 15 MG/DL Creatinine 0.79 MG/DL Random Glucose 181 MG/DL Calcium Level 9.9 MG/DL Phosphorus Level 3.1 MG/DL Magnesium Level 2.2 MG/DL Sodium Level 139 MEQ/L Potassium Level 4.0 MEQ/L Chloride Level 107 MEQ/L Carbon Dioxide Level 23.5 MEQ/L Anion Gap 9 MEQ/L Estimat Glomerular Filtration Rate 90 ML/MIN Microbiology Date/Time Source Procedure Growth Status 09/20/17 16:51 Blood Peripheral Aerobic Blood Culture - Preliminary NO GROWTH IN 1 DAY Resulted 09/20/17 16:51 Blood Peripheral Anaerobic Blood Culture - Preliminary NO GROWTH IN 1 DAY Resulted 09/20/17 16:46 Blood Peripheral Aerobic Blood Culture - Preliminary NO GROWTH IN 1 DAY Resulted 09/20/17 16:46 Blood Peripheral Anaerobic Blood Culture - Preliminary NO GROWTH IN 1 DAY Resulted 09/20/17 16:35 Sputum Endotracheal Gram Stain - Final Resulted 09/20/17 16:35 Sputum Endotracheal Sputum Culture - Preliminary HEAVY GROWTH NORMAL RESPIRATORY ALFREDO... Resulted 09/20/17 13:10 Wound Abdomen Gram Stain - Final Resulted 09/20/17 13:10 Wound Abdomen Wound Culture - Preliminary MODERATE GROWTH NORMAL SKIN ALFREDO AT ... Resulted Imaging Last Impressions Chest X-Ray 09/20/17 0600 Signed Impressions: Service Date/Time: September 05:16 - CONCLUSION: 1. Subsegmental atelectasis right base. There has been no significant change when compared to the prior exam. Darius Harris MD Abdomen/Pelvis CT 09/20/17 0000 Signed Impressions: Service Date/Time: September 20:27 - CONCLUSION: 1. Ileus type bowel gas pattern without free air or free fluid. 2. Prior cholecystectomy. Migue Cuenca Jr., MD Abdomen X-Ray 09/20/17 0000 Signed Impressions: Service Date/Time: September 13:33 - CONCLUSION: 1. Bowel gas pattern characteristic of a hypodynamic ileus. 2. Gastrostomy tube projects over the left upper abdominal quadrant. Charles Brian MD Head CT 09/10/17 0600 Signed Impressions: Service Date/Time: Sunday, September 10, 2017 04:17 - CONCLUSION: Stable evolving intracranial hemorrhage with no new acute findings. Nacho Krishnan MD Maxillofacial CT 08/30/17 0000 Signed Impressions: Service Date/Time: August 15:13 - CONCLUSION: 1. There is a minimally depressed right nasal bone fracture with adjacent soft tissue swelling. No other fracture is visualized. 2. Please refer to head CT report for description of the right subdural hematoma. Nacho Buckley MD Lumbar Spine CT 08/30/17 0000 Signed Impressions: Service Date/Time: August 17:59 - CONCLUSION: Negative examination. Alec Latham MD Cervical Spine CT 08/30/17 0000 Signed Impressions: Service Date/Time: August 15:12 - CONCLUSION: 1. No acute fracture or subluxation. Skinny Muñiz MD Physical Exam CONSTITUTIONAL/GENERAL: This is an obese female patient, in no apparent distress. TUBES/LINES/DRAINS: SKIN: No jaundice, rashes, or lesions. Skin temperature appropriate. Not diaphoretic. HEAD: R parietal incision - dry, clean EYES: Pupils equal and round and reactive. Extraocular motions intact. No scleral icterus. No injection or drainage. Fundi not examined. ENT: Hearing grossly normal. Nose without bleeding or purulent drainage. Oral mucosae without visible erythema, exudates, masses, or lesions. NECK: Trach in place Supple, nontender. No palpable thyroid enlargement or nodularity. CARDIOVASCULAR: Regular rate and rhythm without murmurs, gallops, or rubs. No JVD. Peripheral pulses symmetric. RESPIRATORY/CHEST: Symmetric, unlabored respirations. Clear to auscultation. Breath sounds equal bilaterally. No wheezes, rales, or rhonchi. GASTROINTESTINAL: Abdomen soft, diffusely tender, at least moderately distended. No hepato-splenomegaly, or palpable masses. No guarding. Bowel sounds present. PEG inplace with no drainage on the dressing GENITOURINARY: Without palpable bladder distension. Porter catheter in place with clear yellow MUSCULOSKELETAL: Extremities without clubbing, cyanosis, or edema. No joint tenderness or effusion noted. No calf tenderness. No mottling or clubbing. NEURO: fully nawake and alert, follows commands and is conversant PSYCHIATRIC: calm, pleasant Assessment & Plan Remarks Intracranial bleed, sp trauma Acute VDRF sp trach Low grade fever Leukocytosis E.coli UTI, on CFTX New hypotensive episode, New ileus KUB with hypodynamic ileus. - CT A/P unremarkable - c.diff neg PEG site drainage ? infx cont zosyn, vanco, micafungin for now - will de-escalate abx as clx become finalised Dacia Melendez MD Sep 21, 2017 15:39
[2017-09-21] MEDS: MICAFUNGIN INJ 150 MG in SODIUM CHLORIDE 0.9% INJ 100 ML IV SCH (17:15)
[2017-09-21] MEDS: ATORVASTATIN 40 MG TAB PO SCH (19:43)
[2017-09-21] MEDS: hydrALAZINE HCL 20 MG/ML VIAL IV PUSH PRN (19:43)
[2017-09-21] MEDS: DOXEPIN HCL 10 MG CAP PO SCH (19:43)
[2017-09-21] MEDS: LABETALOL HCL 100 MG/20 ML VIAL IV PUSH PRN (21:03)
[2017-09-22] VITALS (15 sets, daily range): BP systolic 97–167; BP diastolic 55–77; PULSE 58–85; RESP 10–21; TEMP 98.6–99.5; O2SAT 98–100
[2017-09-22] MEDS: hydrALAZINE HCL 100 MG TAB PO SCH ×3 (01:05→18:34)
[2017-09-22] MEDS: hydrALAZINE HCL 20 MG/ML VIAL IV PUSH PRN (02:33)
--- NOTE | 2017-09-22 03:27 | RADRPT ---
EXAM DATE/TIME: 09/22/2017 02:46 [place] COMPARISON: ABDOMEN KUB ONLY, September 20, 2017, 13:33. INDICATIONS : Follow up ileus. MEDICAL HISTORY : None. SURGICAL HISTORY : None. ENCOUNTER: Subsequent ACUITY: 2 days PAIN SCORE: Non-responsive. LOCATION: Bilateral lower quadrant FINDINGS: Supine view of the abdomen was performed. The abdominal bowel gas pattern is normal. No abnormal ma sses, calcifications, or organomegaly is seen. The osseous structures are unremarkable. There are quigley rgical clips in the right upper quadrant compatible with prior cholecystectomy. A gastrostomy tube is in place overlying the region of the stomach. CONCLUSION: 1. No evidence of obstruction. Resolved ileus Darius Harris MD on September 22, 2017 at 3:25 Board Certified Radiologist. This report was verified electronically.
[2017-09-22] MEDS: CHLORHEXIDINE GLUCONATE 2 % 1 PACK (2 CLOTHS) TOP SCH (04:00)
[2017-09-22] MEDS: PIPERACIL-TAZO 4.5 GM PREMIX 100 ML IV SCH ×4 (04:42→23:27)
[2017-09-22] MEDS: METOPROLOL TARTRATE 100 MG TAB PO SCH ×3 (05:08→18:34)
[2017-09-22] MEDS: METOCLOPRAMIDE HCL 10 MG/2 ML VIAL IV PUSH SCH ×3 (05:09→20:57)
[2017-09-22] MEDS: ARTIFICIAL TEARS OPTH SOLN 15 ML BTL EACH EYE SCH ×3 (05:09→20:57)
[2017-09-22] MEDS: ISOSORBIDE DINITRATE 10 MG TAB PO SCH ×3 (05:09→20:55)
[2017-09-22] MEDS: VANCOMYCIN 1,000 MG/NS 250 ML IV SCH ×4 (05:29→18:34)
[2017-09-22] MEDS ORDERED: PHARMACY ORDERED LAB ONE (05:45)
[2017-09-22 05:50] LABS: AUTOMATED NEUTROPHIL # 10.7 TH/MM3 (1.8-7.7); BASOPHIL # 0.1 TH/MM3 (0-0.2); BASOPHIL % 0.6 % (0.0-2.0); EOSINOPHIL # 0.1 TH/MM3 (0-0.4); EOSINOPHIL % 0.9 % (0.0-4.0); HEMATOCRIT 28.7 % (35.0-46.0); HEMO FLAGS DIFF FINAL; LYMPHOCYTE # 1.3 TH/MM3 (1.0-4.8); MEAN CELL VOLUME 82.4 FL (80.0-100.0); MEAN CORPUSCULAR HEMOGLOBIN 26.5 PG (27.0-34.0); MEAN CORPUSCULAR HGB CONC 32.1 % (32.0-36.0); MONO % 8.7 % (0.0-8.0); NEUT % 79.8 % (16.0-70.0); PLATELET COUNT 502 TH/MM3 (150-450); RED BLOOD COUNT 3.49 MIL/MM3 (4.00-5.30); RED CELL DISTRIBUTION WIDTH 15.1 % (11.6-17.2); WHITE BLOOD COUNT 13.5 TH/MM3 (4.0-11.0)
[2017-09-22 05:51] LABS: ALT (GPT) 50 U/L (10-53); ANION GAP 8 MEQ/L (5-15); AST (GOT) 29 U/L (15-37); BICARBONATE 25.1 MEQ/L (21.0-32.0); BLOOD UREA NITROGEN 8 MG/DL (7-18); CHLORIDE 105 MEQ/L (98-107); GLOMERULAR FILTRATION RATE 150 ML/MIN (>89); POTASSIUM 3.4 MEQ/L (3.5-5.1); SODIUM (NA) 138 MEQ/L (136-145)
[2017-09-22 05:53] LABS: ALKALINE PHOSPHATASE 131 U/L (45-117); TOTAL BILIRUBIN ADULT 0.4 MG/DL (0.2-1.0)
[2017-09-22] MEDS: INSULIN NovoLIN REGULAR SUPPLEMENTAL SCALE SQ SCH ×4 (06:00→23:29)
[2017-09-22] MEDS: SENNOSIDES SYRUP 8.8 MG/5 ML CUP PO SCH ×2 (08:44→20:56)
[2017-09-22] MEDS: CHOLECALCIFEROL (VIT D3) 1000 UNIT TAB PO SCH (08:44)
[2017-09-22] MEDS: VALPROIC ACID SYRUP 250 MG/5 ML UDC OG-TUBE SCH ×2 (08:44→20:56)
[2017-09-22] MEDS: HEPARIN SODIUM - SQ 10,000 UNITS/ML VIAL SQ SCH ×2 (08:44→20:57)
[2017-09-22] MEDS: DOCUSATE SODIUM 100 MG/10 ML UDC PO SCH ×2 (08:44→20:56)
[2017-09-22] MEDS: LISINOPRIL 20 MG TAB PO SCH ×2 (08:45→20:55)
[2017-09-22] MEDS: SODIUM CHLORIDE 0.9% FLUSH 10 ML FLUSH IV FLUSH SCH ×3 (08:45→20:55)
[2017-09-22] MEDS: TOLTERODINE TARTRATE 2 MG TAB PO SCH (08:45)
[2017-09-22] MEDS: LACTULOSE SYRUP 20 GM/30 ML CUP PO SCH ×2 (08:45→20:56)
[2017-09-22] MEDS: FUROSEMIDE 40 MG TAB PO SCH (08:45)
[2017-09-22] MEDS: FAMOTIDINE 20 MG TAB NG SCH ×2 (08:45→20:55)
[2017-09-22] MEDS: POLYETHYLENE GLYCOL 17 GM PKG PO SCH ×2 (08:45→20:55)
[2017-09-22] MEDS: CHLORHEXIDINE 0.12% (ORAL KIT) 15 ML CUP MT SCH ×2 (08:46→20:55)
[2017-09-22] MEDS: INSULIN DETEMIR 100 UNITS/ML VIAL SQ SCH ×2 (08:46→20:57)
--- NOTE | 2017-09-22 12:59 | HHI.GIFU ---
Subjective Remarks Patient resting in bed in no apparent distress. PEG site with no active drainage noted. (Ann Hutton) Objective Vitals I&O Vital Signs Date Time Temp Pulse Resp B/P (MAP) Pulse Ox O2 Delivery O2 Flow Rate FiO2 09/22/17 12:00 58 09/22/17 10:00 70 09/22/17 08:55 98 T-piece 5.00 40 09/22/17 08:00 59 09/22/17 08:00 40 09/22/17 08:00 98.9 58 15 107/55 (72) 100 09/22/17 06:00 63 09/22/17 04:00 82 09/22/17 04:00 40 09/22/17 04:00 98.6 82 21 155/72 (99) 100 09/22/17 02:41 100 40 09/22/17 02:00 66 09/22/17 00:00 99.5 85 20 150/73 (98) 100 09/22/17 00:00 40 09/22/17 00:00 85 09/21/17 23:07 100 40 09/21/17 22:00 94 09/21/17 22:00 40 09/21/17 20:00 99.3 88 21 161/75 (103) 100 09/21/17 20:00 88 09/21/17 18:00 67 09/21/17 16:00 67 09/21/17 16:00 99.3 67 12 160/76 (104) 100 09/21/17 14:00 70 I/O 09/21/17 09/21/17 09/21/17 09/22/17 09/22/17 09/22/17 07:00 15:00 23:00 07:00 15:00 23:00 Intake Total 240 ml 460 ml 212 ml 1150 ml Output Total 1200 ml 1850 ml 800 ml 700 ml Balance -960 ml -1390 ml -588 ml 450 ml IV Total 200 ml 340 ml 800 ml Tube Feeding 92 ml 230 ml Tube Irrigant 120 ml 120 ml 120 ml Other 40 ml Output Urine Total 1200 ml 1850 ml 800 ml 700 ml # Bowel Movements 2 2 0 0 Laboratory Laboratory Tests Test 09/22/17 05:00 White Blood Count 13.5 Red Blood Count 3.49 Hemoglobin 9.2 Hematocrit 28.7 Mean Corpuscular Volume 82.4 Mean Corpuscular Hemoglobin 26.5 Mean Corpuscular Hemoglobin Concent 32.1 Red Cell Distribution Width 15.1 Platelet Count 502 Mean Platelet Volume 8.5 Neutrophils (%) (Auto) 79.8 Lymphocytes (%) (Auto) 10.0 Monocytes (%) (Auto) 8.7 Eosinophils (%) (Auto) 0.9 Basophils (%) (Auto) 0.6 Neutrophils # (Auto) 10.7 Lymphocytes # (Auto) 1.3 Monocytes # (Auto) 1.2 Eosinophils # (Auto) 0.1 Basophils # (Auto) 0.1 CBC Comment DIFF FINAL Differential Comment Blood Urea Nitrogen 8 Creatinine 0.51 Random Glucose 130 Total Protein 7.5 Albumin 2.7 Calcium Level 10.3 Alkaline Phosphatase 131 Aspartate Amino Transf (AST/SGOT) 29 Alanine Aminotransferase (ALT/SGPT) 50 Total Bilirubin 0.4 Sodium Level 138 Potassium Level 3.4 Chloride Level 105 Carbon Dioxide Level 25.1 Anion Gap 8 Estimat Glomerular Filtration Rate 150 Date/Time Source Procedure Growth Status 09/20/17 16:51 Blood Peripheral Aerobic Blood Culture - Preliminary Gram Positive Cocci Resulted 09/20/17 16:51 Anaerobic Blood Culture - Preliminary Gram Positive Cocci Resulted 09/20/17 16:35 Sputum Endotracheal Gram Stain - Final Complete 09/20/17 16:35 Sputum Endotracheal Sputum Culture - Final HEAVY GROWTH NORMAL RESPIRATORY TYREL Complete 09/09/17 09:42 Urine Catheterized Urine Urine Culture - Final Escherichia Coli Complete 09/20/17 13:10 Wound Abdomen Gram Stain - Final Complete 09/20/17 13:10 Wound Abdomen Wound Culture - Final MODERATE GROWTH NORMAL SKIN TYREL... Complete Imaging Last Impressions Abdomen X-Ray 09/22/17 06 Signed Impressions: Service Date/Time: Friday, September 22, 2017 02:46 - CONCLUSION: 1. No evidence of obstruction. Resolved ileus Darius Harris MD Chest X-Ray 09/20/17 06 Signed Impressions: Service Date/Time: September 05:16 - CONCLUSION: 1. Subsegmental atelectasis right base. There has been no significant change when compared to the prior exam. Darius Harris MD Abdomen/Pelvis CT 09/20/17 0000 Signed Impressions: Service Date/Time: September 20:27 - CONCLUSION: 1. Ileus type bowel gas pattern without free air or free fluid. 2. Prior cholecystectomy. Migue Cuenca Jr., MD Head CT 09/10/17 0600 Signed Impressions: Service Date/Time: Sunday, September 10, 2017 04:17 - CONCLUSION: Stable evolving intracranial hemorrhage with no new acute findings. Nacho Krishnan MD Maxillofacial CT 08/30/17 0000 Signed Impressions: Service Date/Time: August 15:13 - CONCLUSION: 1. There is a minimally depressed right nasal bone fracture with adjacent soft tissue swelling. No other fracture is visualized. 2. Please refer to head CT report for description of the right subdural hematoma. Nacho Buckley MD Lumbar Spine CT 08/30/17 0000 Signed Impressions: Service Date/Time: August 17:59 - CONCLUSION: Negative examination. Alec Latham MD Cervical Spine CT 08/30/17 0000 Signed Impressions: Service Date/Time: August 15:12 - CONCLUSION: 1. No acute fracture or subluxation. Skinny Muñiz MD Physical Exam HEENT: Normocephalic; atraumatic; no jaundice. CHEST: Resp. even/unlabored. Trach. CARDIAC: RRR ABDOMEN: Soft, mildly distended, Mild diffuse tenderness, no hepatosplenomegaly ; bowel sounds are present in all four quadrants. PEG tube site with no active drainage. EXTREMITIES: Generalized edema. SKIN: Normal; no rash; no jaundice. RN ENDOCRINOLOGY: Lethargic (Ann Hutton PSYCHOLOGICAL ASSISTANT) Assessment and Plan Plan ASSESSMENT - Reconsulted for drainage at PEG tube site. No drainage noted from PEG tube site today. No redness/swelling. She is on Vancomycin and Zosyn. ID following. PEG site final culture stain shows moderate mixed tyrel with gram negative rods. - Abdominal distention, mild but soft. KUB (09/21/17) ---> 1. Bowel gas pattern characteristic of a hypodynamic ileus 2. Gastrostomy tube projects over the left upper abdominal quadrant. Will start trickle TF and continue Reglan. 2 BMs today. KUB 09/22--No evidence of obstruction. Resolved ileus. - Dysphagia, FEN. Pt currently in the ICU for TBI/SDH/SAH. S/P Craniotomy for evacuation. S/P EGD with PEG tube placement (09/14/17)---> 1. The upper, middle, and distal third of the esophagus were carefully inspected and no abnormalities were noted. The z-line was well seen at the GEJ. The endoscope was pushed into the fundus which was normal including a retroflexed view. The antrum, first and second part of the duodenum were unremarkable. 2. 20 F PEG tube placed successfully. - Resp. Failure. S/P Tracheostomy, on mechanical ventilation - Anemia, HH 9.2/28.7 - S/P Fall, TBI/SDH/SAH, per NSx. PLAN - Trickle tube feed at 20cc/hr (Glucerna 1.5)- bottle feeder recommended goal rate of 35cc/hr - Continue Reglan 10mg IV q8h - Cont. Vancomycin and Zosyn- ID following - Cont. Miralax - Cont. Senokot - Cont. Colace - Supportive care - Further recommendations to follow based on results of above Patient seen and examined by Dr. Gilliam and myself and this note is written on his behalf (Ann Hutton) Physician Comments Seen and examined, plan as above. Further recommendations to follow. (Bandar Gilliam MD) Ann Hutton Sep 22, 2017 12:59 Bandar Gilliam MD Sep 22, 2017 23:02
--- NOTE | 2017-09-22 15:22 | HHI.CCPN ---
Subjective Remarks/Hospital Course 57-year-old AA female . Date of admission 08/30/2017. Past medical history includes schizoaffective/bipolar, depression, seizure disorder, hypertension, dyslipidemia, diabetes and allergic rhinitis. She is not on any blood thinners or aspirin. This patient was walking from [place] in approximately 6 AM this morning when she suffered a fall and landed on the right side of her face.. She states she slipped in the wet grass hitting her face on the concrete. No loss of consciousness. Not seizure activity noted. Not tongue biting. No incontinence of stool or urine. 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 Patient states that she's been having a headache and right-sided facial pain since. 08/30 CT of the brain showed a right frontotemporal subdural hematoma 1.6 cm with a 3 mm right to left shift. Maxillofacial CT revealed a nondisplaced right nasal fracture. CT spine negative. CBC showed normocytic anemia. BMP is pending. Elevated PTT coags at 33. Patient was loaded with 500 mg levetiracetam, given as needed for elevated blood pressure stabilized in the ED. Neurosurgical consultation was requested with Dr. Aiken. 08/31: Afebrile. CT brain revealed increased diameter right-sided subdural hematoma up to 1.9 cm. Shift is 1 mm right to left. Positive headache. No seizure activity. No real focal neurological deficits. 09/01: Patient subjective a weak left upper and lower extremity greater than right. Mumbling words. Stat CT brain revealed 2.6 cm image right intraparenchymal hemorrhage on the right temporal parietal region, 0.9 cm right cerebellar hemorrhage and bilateral subarachnoid hemorrhage convex's. Notified Dr. Aiken. Patient was intubated for airway protection and central line placed for hypertonic saline 09/02: Tmax 99.9. Improved subarachnoid hemorrhage. Stable right intraparenchymal hemorrhages. Potassium and phosphorus been replaced. No bowel movement. 09/03: Currently afebrile. Remains on propofol and fentanyl drips for sedation. Tolerating tube feeds at goal. Arousable with open eyes but not following commands currently. 09/04: Remains sedated, orally intubated on mechanical ventilation. Tolerating tube feeds. 09/05: Remains sedated, orally intubated on mechanical ventilation. Tolerating tube feeds. 09/06: Breathes over vent despite sedation. Withdraws limbs. 09/07: Remains sedated, orally intubated on mechanical ventilation. Tolerating tube feeds. 09/08: Will work toward extubation when OK with Neurosurgery. 09/09: Remains sedated, orally intubated on mechanical ventilation. Tolerating tube feeds. 09/10: Remains sedated, orally intubated on mechanical ventilation. Tolerating tube feeds. 09/11: Remains drowsy, orally intubated on mechanical ventilation. Tolerating tube feeds. Daily C Pap trials ongoing. Remains on nicardipine drip. 09/12: Remains drowsy, encephalopathic, orally intubated on mechanical ventilation. Tolerating tube feeds. Daily C Pap trials ongoing. Remains on nicardipine drip. 09/13: Drowsy, arousable, orally intubated on mechanical ventilation. Tolerating C Pap trial. Awaiting PEG tube today 09/14: Afebrile. Tolerating tube feeds at 1.5 at 45 cc an hour/goal. Positive BM. Will need percutaneous tracheostomy currently a day #14. Status post PEG tube I Dr. Gilliam Subjective 09/15: Failed extubation yesterday due to stridor. Upon intubation area was edematous. Currently receiving Decadron 48 hours. Attempt extubation tomorrow versus tracheostomy on Sunday. She is awake she will intermittently follow commands. 09/16: Patient awake and alert, on commands. Currently on CPAP trials doing well. Plan for trial of extubation this afternoon. Patient noted to have elevated glucose levels will DC vital high protein in place patient on Glucerna tube feeds. Per colleague Dr. Rodas, will restart DVT prophylaxis today, has been okayed by Neurosurgery. 09/17: Patient continues to be on sedation alert and following commands CPAP trials underway attempted SBT parameters yesterday which patient failed. Will continue CPAP trials today for possible trial of extubation. Attempted to contact son regarding possibility of tracheostomy placement, thus far unsuccessful in contacting Mr. Alejandre. 09/18: Tmax 99.0. Patient currently on no sedation comfortably remains on CPAP greater than 2 days Patient failed SBT trials yesterday afternoon , with elevated RSBI as well as no cuff leak. POA son Mr. Alejandre at bedside this a.m. , extensive of discussion regarding tracheostomy to include risk and benefits. Plan for tracheostomy tomorrow 09/19. 09/19: Tmax 99.9. No acute events overnight. Patient remains ventilator dependent #8.0 Shiley percutaneous tracheostomy placement this a.m. performed, uneventful. Disposition planning in progress. 09/20: Sedated, on mechanical ventilation via tracheostomy. 09/21: Drowsy, easily arousable. On mechanical ventilation via tracheostomy. 09/22: Afebrile. The patient has remained on T piece trials, today greater than 8 hours Objective Vital Signs Date Time Temp Pulse Resp B/P (MAP) Pulse Ox O2 Delivery O2 Flow Rate FiO2 09/22/17 14:00 61 09/22/17 12:00 98.7 14 167/77 (107) 100 09/22/17 08:55 T-piece 5.00 40 Intake and Output 09/22/17 09/22/17 09/23/17 08:00 16:00 00:00 Intake Total 1150 ml Output Total 700 ml Balance 450 ml Result Diagram: 09/22/17 0500 09/22/17 0500 Other Results Microbiology Date/Time Source Procedure Growth Status 09/20/17 16:35 Sputum Endotracheal Gram Stain - Final Complete 09/20/17 16:35 Sputum Endotracheal Sputum Culture - Final HEAVY GROWTH NORMAL RESPIRATORY ALFREDO Complete 09/20/17 13:10 Wound Abdomen Gram Stain - Final Complete 09/20/17 13:10 Wound Abdomen Wound Culture - Final MODERATE GROWTH NORMAL SKIN ALFREDO... Complete Imaging Last Impressions Chest X-Ray 09/16/17 0600 Signed Impressions: Service Date/Time: Saturday, September 16, 2017 04:54 - CONCLUSION: Persistent bilateral patchy pulmonary opacity, decreased on the left. Leonardo Muse MD Head CT 09/10/17 0600 Signed Impressions: Service Date/Time: Sunday, September 10, 2017 04:17 - CONCLUSION: Stable evolving intracranial hemorrhage with no new acute findings. Nacho Krishnan MD Abdomen X-Ray 09/01/17 0000 Signed Impressions: Service Date/Time: Friday, September 01, 2017 18:29 - CONCLUSION: Nasogastric tube coiled in the stomach with the tip projecting towards the GE junction. Migue Cuenca Jr., MD Maxillofacial CT 08/30/17 0000 Signed Impressions: Service Date/Time: August 15:13 - CONCLUSION: 1. There is a minimally depressed right nasal bone fracture with adjacent soft tissue swelling. No other fracture is visualized. 2. Please refer to head CT report for description of the right subdural hematoma. Nacho Buckley MD Lumbar Spine CT 08/30/17 0000 Signed Impressions: Service Date/Time: August 17:59 - CONCLUSION: Negative examination. Alec Latham MD Cervical Spine CT 08/30/17 Signed Impressions: Service Date/Time: August 15:12 - CONCLUSION: 1. No acute fracture or subluxation. Skinny Muñiz MD Last Impressions Chest X-Ray 09/14/17 0000 Signed Impressions: Service Date/Time: Thursday, September 14, 2017 11:33 - CONCLUSION: 1. ET tube right main bronchus with reexpansion right lower lobe. 2. Developing opacity left base.. Stu Huynh MD FACR Head CT 09/10/17 0600 Signed Impressions: Service Date/Time: Sunday, September 10, 2017 04:17 - CONCLUSION: Stable evolving intracranial hemorrhage with no new acute findings. Nacho Krishnan MD Abdomen X-Ray 09/01/17 0000 Signed Impressions: Service Date/Time: Friday, September 01, 2017 18:29 - CONCLUSION: Nasogastric tube coiled in the stomach with the tip projecting towards the GE junction. Migue Cuenca Jr., MD Maxillofacial CT 08/30/17 0000 Signed Impressions: Service Date/Time: August 15:13 - CONCLUSION: 1. There is a minimally depressed right nasal bone fracture with adjacent soft tissue swelling. No other fracture is visualized. 2. Please refer to head CT report for description of the right subdural hematoma. Nacho Buckley MD Lumbar Spine CT 08/30/17 0000 Signed Impressions: Service Date/Time: August 17:59 - CONCLUSION: Negative examination. Alec Latham MD Cervical Spine CT 08/30/17 0000 Signed Impressions: Service Date/Time: August 15:12 - CONCLUSION: 1. No acute fracture or subluxation. Skinny Muñiz MD Objective Remarks GENERAL: 57-year-old AA female, resting in bed, sedated, arousable, on mechanical ventilation via tracheostomy SKIN: Warm and dry. HEAD: Status post right craniotomy with subdural. EYES: Pupils equal and round about 3 mm bilaterally and reactive. No scleral icterus. No injection or drainage. ENT: No nasal bleeding or discharge. Mucous membranes pink and moist. NECK: Tracheostomy in place CARDIOVASCULAR: RRR. S1, S2. No S4. Without murmur. No JVD. RESPIRATORY: Clear to auscultation. Breath sounds equal bilaterally. No wheezes, rales or rhonchi GASTROINTESTINAL: Abdomen soft, obese, non-tender, nondistended. PEG tube site with some drainage around the insertion site. Normoactive bowel sounds MUSCULOSKELETAL: Extremities without significant peripheral edema. No obvious deformities. Well perfused. NEUROLOGICAL: GCS 11 T . RASS 0. Alert, arouses on command. Moving extremities 4 on command. Procedures 09/14 PEG placement 09/19 percutaneous tracheostomy 8.0 [place] Date of Insertion: Sep 01, 2017 Line: Central Venous Catheter Side: Left Location: Internal, Jugular A/P Assessment and Plan Neuro/Psych: s/p right craniotomy with evacuation of subdural hematoma 2.6 cm right parietal/temporal intracranial hemorrhage, 0.9 cm right subdural hemorrhage and bilateral subarachnoid hemorrhage Right subdural hematoma - 1.6 cm fronto temporal with a 3 mm right to left shift Right closed nondisplaced nasal fracture Schizoaffective disorder Bipolar disorder Depression Seizure disorder NOS Keep off sedation as tolerated CT brain 08/30 revealed a right frontal temporal subdural hematoma 1.6 cm thickness with a 3 mm right to left shift. Nondisplaced right nasal bone fracture. CT brain 08/31 revealed 2.6 cm right parietal intracranial hemorrhage, 0.9 cm right subdural hemorrhage and bilateral subarachnoid hemorrhage CT brain 09/01 revealed stable intraparenchymal hemorrhage improving subarachnoid hemorrhage at the convex CT Head 09/05 with stable areas of ICH/ SAH. EEG 08/31 revealed generalized slowing/encephalopathy. Disruption right side secondary to intraparenchymal hemorrhage. Levetiracetam 500 mg IV twice a day for seizure prophylaxis 7 days has been discontinued Resumed home dose of valproic acid 250mg BID via PEG tube. Depakote level 09/15 25 subtherapeutic Repeat Depakote level 11/9 Goal keep systolic blood pressure less than 140. [facility] Stopped hypertonic saline 09/05 per neurosurgery. Evaluated by Dr. Aiken/neurosurgery Continue doxepin 10 mg by PEG tube daily Continue acetaminophen 650 mg every 6 hours when necessary fever Holding loratadine 10 mg by PEG tube daily Currently morphine sulfate 2-4 mg every 4 hours as needed for pain CV: Hypertension Dyslipidemia Increase metoprolol 100 mg via PEG tube Q6hrly for hypertension on 09/12. Prinivil 20mg BID. Amlodipine 10 mg PEG tube daily Continue isosorbide dinitrate 10 mg 3 times a day with hydralazine 100 mg every 8 hours Clonidine patch 0.3 mg every 7 days added 09/11 As needed labetalol, hydralazine, to keep systolic blood pressure less than 140. Continue atorvastatin 40 mg by mouth daily for dyslipidemia Resp: PRVC 16//11/16/39, nightly CPAP trials 03/26 40% FI02. 09/22 T Piece trials initiated Ventilator bundle Albuterol/ipratropium aerosols every 6 hours with albuterol aerosols every 2 hours prn dyspnea Spontaneous breathing trials daily-attempt T piece as tolerated. Percutaneous tracheostomy 09/19 GI: Resume tube feeding with vital 1.5 goal 50 cc. Status post PEG tube Dr. Gilliam 09/13 Famotidine 20 mg by PEG twice a day for GI prophylaxis Docusate sodium/senna t twice a day and polyethylene glycol twice a day for bowel regimen. Continue lactulose 30 cc twice a day as well 09/22 KUB- Ileus resolved : Incontinence Porter catheter if indicated for accurate I's and O's in a critically ill patient Continue Tolterodine 2 mg by mouth daily. Endo: Diabetes History of hypothyroidism/thyroid nodules Holding metformin 1000 mg daily and Linagliptin 5 mg daily for diabetes. Sliding-scale insulin with Accu-Cheks to maintain euglycemia Increase Insulin Detemir to 20 units twice a day Renal: History of renal cell carcinoma status post right nephrectomy KVO IVF 09/05 Maintain Porter patient on IV diuretics Monitor urine output Accurate I's and O's Heme: Normocytic anemia Elevated PTT Thrombocytopenia Monitor CBC daily. Follow trends Does not meet transfusion thresholds at this time ID: Sepsis PEG site infection UTI Patient noted to have fevers and left shift with bands noted on peripheral smear. Obtained allen cultures and initiated empiric antibiotic coverage with IV Zosyn 09/09, discontinued on 09/11 as urine culture growing Escherichia coli sensitive to Rocephin. De-escalated to Rocephin 1 g IV daily starting 09/11. PEG site noted to be infected with purulent drainage. Antibiotic brought into Zosyn/vancomycin/micafungin per ID on 09/20. Cultures pending. 09/20 Blood culture Staph epidermidis (possibly contaminant), Gram + cocci FEN: Hypophosphatemia Hypokalemia Replace electrolytes as clinically indicated per ICU electrolyte protocol. Resumed cholecalciferol 1000 U daily. MSK: Osteoarthritis Physical therapy evaluate and treat Access -PIV's x 2 Prophylaxis - GI famotidine - DVT- SCD. Per neurosurgery initiate heparin 5000 u BID (09/16) Dispo: Discussed with [employer] MEMBER at bedside. Level 3 follow-up Physician Audelia Carmichael MD Sep 22, 2017 15:22
[2017-09-22] MEDS: MICAFUNGIN INJ 150 MG in SODIUM CHLORIDE 0.9% INJ 100 ML IV SCH (17:12)
[2017-09-22] MEDS: DOXEPIN HCL 10 MG CAP PO SCH (20:55)
[2017-09-22] MEDS: ATORVASTATIN 40 MG TAB PO SCH (20:55)
[2017-09-23] VITALS (14 sets, daily range): BP systolic 122–161; BP diastolic 61–76; PULSE 54–88; RESP 12–24; TEMP 98.6–99.5; O2SAT 97–100
[2017-09-23] MEDS: hydrALAZINE HCL 20 MG/ML VIAL IV PUSH PRN ×2 (00:04→05:13)
[2017-09-23] MEDS: hydrALAZINE HCL 100 MG TAB PO SCH ×3 (01:34→17:49)
[2017-09-23] MEDS: METOPROLOL TARTRATE 100 MG TAB PO SCH ×5 (01:35→22:53)
[2017-09-23] MEDS: CHLORHEXIDINE GLUCONATE 2 % 1 PACK (2 CLOTHS) TOP SCH (04:00)
[2017-09-23] MEDS: PIPERACIL-TAZO 4.5 GM PREMIX 100 ML IV SCH ×4 (04:38→22:56)
[2017-09-23] MEDS: ISOSORBIDE DINITRATE 10 MG TAB PO SCH ×3 (05:13→22:53)
[2017-09-23] MEDS: VANCOMYCIN 1,000 MG/NS 250 ML IV SCH ×2 (05:14)
[2017-09-23] MEDS: METOCLOPRAMIDE HCL 10 MG/2 ML VIAL IV PUSH SCH ×3 (05:14→22:00)
[2017-09-23] MEDS: ARTIFICIAL TEARS OPTH SOLN 15 ML BTL EACH EYE SCH (05:18)
[2017-09-23] MEDS: INSULIN NovoLIN REGULAR SUPPLEMENTAL SCALE SQ SCH ×3 (05:18→17:42)
[2017-09-23] MEDS: LISINOPRIL 20 MG TAB PO SCH ×2 (07:53→22:53)
[2017-09-23] MEDS: FUROSEMIDE 40 MG TAB PO SCH (07:53)
[2017-09-23] MEDS: HEPARIN SODIUM - SQ 10,000 UNITS/ML VIAL SQ SCH ×2 (07:53→22:55)
[2017-09-23] MEDS: VALPROIC ACID SYRUP 250 MG/5 ML UDC OG-TUBE SCH ×2 (07:54→22:54)
[2017-09-23] MEDS: CHOLECALCIFEROL (VIT D3) 1000 UNIT TAB PO SCH (07:54)
[2017-09-23] MEDS: MORPHINE SULFATE 4 MG/ML INJ IV PUSH PRN (07:54)
[2017-09-23] MEDS: TOLTERODINE TARTRATE 2 MG TAB PO SCH (07:54)
[2017-09-23] MEDS: FAMOTIDINE 20 MG TAB NG SCH ×2 (07:54→22:53)
[2017-09-23] MEDS: DOCUSATE SODIUM 100 MG/10 ML UDC PO SCH ×2 (07:55→21:00)
[2017-09-23] MEDS: INSULIN DETEMIR 100 UNITS/ML VIAL SQ SCH ×2 (07:55→22:55)
[2017-09-23] MEDS: POLYETHYLENE GLYCOL 17 GM PKG PO SCH ×2 (07:55→21:00)
[2017-09-23] MEDS: LACTULOSE SYRUP 20 GM/30 ML CUP PO SCH (07:55)
[2017-09-23] MEDS: SENNOSIDES SYRUP 8.8 MG/5 ML CUP PO SCH ×2 (07:55→21:00)
[2017-09-23] MEDS: SODIUM CHLORIDE 0.9% FLUSH 10 ML FLUSH IV FLUSH SCH ×3 (07:55→22:54)
[2017-09-23] MEDS: CHLORHEXIDINE 0.12% (ORAL KIT) 15 ML CUP MT SCH ×2 (07:55→22:54)
[2017-09-23] MEDS ORDERED: LACTULOSE SYRUP 20 GM/30 ML CUP PO PRN (11:00)
--- NOTE | 2017-09-23 11:38 | HHI.CCPN ---
Subjective Remarks/Hospital Course 57-year-old AA female . Date of admission 08/30/2017. Past medical history includes schizoaffective/bipolar, depression, seizure disorder, hypertension, dyslipidemia, diabetes and allergic rhinitis. She is not on any blood thinners or aspirin. This patient was walking from [employer] in approximately 6 AM this morning when she suffered a fall and landed on the right side of her face.. She states she slipped in the wet grass hitting her face on the concrete. No loss of consciousness. Not seizure activity noted. Not tongue biting. No incontinence of stool or urine. 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 Patient states that she's been having a headache and right-sided facial pain since. 08/30 CT of the brain showed a right frontotemporal subdural hematoma 1.6 cm with a 3 mm right to left shift. Maxillofacial CT revealed a nondisplaced right nasal fracture. CT spine negative. CBC showed normocytic anemia. BMP is pending. Elevated PTT coags at 33. Patient was loaded with 500 mg levetiracetam, given as needed for elevated blood pressure stabilized in the ED. Neurosurgical consultation was requested with Dr. Aiken. 08/31: Afebrile. CT brain revealed increased diameter right-sided subdural hematoma up to 1.9 cm. Shift is 1 mm right to left. Positive headache. No seizure activity. No real focal neurological deficits. 09/01: Patient subjective a weak left upper and lower extremity greater than right. Mumbling words. Stat CT brain revealed 2.6 cm image right intraparenchymal hemorrhage on the right temporal parietal region, 0.9 cm right cerebellar hemorrhage and bilateral subarachnoid hemorrhage convex's. Notified Dr. Aiken. Patient was intubated for airway protection and central line placed for hypertonic saline 09/02: Tmax 99.9. Improved subarachnoid hemorrhage. Stable right intraparenchymal hemorrhages. Potassium and phosphorus been replaced. No bowel movement. 09/03: Currently afebrile. Remains on propofol and fentanyl drips for sedation. Tolerating tube feeds at goal. Arousable with open eyes but not following commands currently. 09/04: Remains sedated, orally intubated on mechanical ventilation. Tolerating tube feeds. 09/05: Remains sedated, orally intubated on mechanical ventilation. Tolerating tube feeds. 09/06: Breathes over vent despite sedation. Withdraws limbs. 09/07: Remains sedated, orally intubated on mechanical ventilation. Tolerating tube feeds. 09/08: Will work toward extubation when OK with Neurosurgery. 09/09: Remains sedated, orally intubated on mechanical ventilation. Tolerating tube feeds. 09/10: Remains sedated, orally intubated on mechanical ventilation. Tolerating tube feeds. 09/11: Remains drowsy, orally intubated on mechanical ventilation. Tolerating tube feeds. Daily C Pap trials ongoing. Remains on nicardipine drip. 09/12: Remains drowsy, encephalopathic, orally intubated on mechanical ventilation. Tolerating tube feeds. Daily C Pap trials ongoing. Remains on nicardipine drip. 09/13: Drowsy, arousable, orally intubated on mechanical ventilation. Tolerating C Pap trial. Awaiting PEG tube today 09/14: Afebrile. Tolerating tube feeds at 1.5 at 45 cc an hour/goal. Positive BM. Will need percutaneous tracheostomy currently a day #14. Status post PEG tube I Dr. Gilliam Subjective 09/15: Failed extubation yesterday due to stridor. Upon intubation area was edematous. Currently receiving Decadron 48 hours. Attempt extubation tomorrow versus tracheostomy on Sunday. She is awake she will intermittently follow commands. 09/16: Patient awake and alert, on commands. Currently on CPAP trials doing well. Plan for trial of extubation this afternoon. Patient noted to have elevated glucose levels will DC vital high protein in place patient on Glucerna tube feeds. Per colleague Dr. Rodas, will restart DVT prophylaxis today, has been okayed by Neurosurgery. 09/17: Patient continues to be on sedation alert and following commands CPAP trials underway attempted SBT parameters yesterday which patient failed. Will continue CPAP trials today for possible trial of extubation. Attempted to contact son regarding possibility of tracheostomy placement, thus far unsuccessful in contacting Mr. Alejandre. 09/18: Tmax 99.0. Patient currently on no sedation comfortably remains on CPAP greater than 2 days Patient failed SBT trials yesterday afternoon , with elevated RSBI as well as no cuff leak. POA son Mr. Alejandre at bedside this a.m. , extensive of discussion regarding tracheostomy to include risk and benefits. Plan for tracheostomy tomorrow 09/19. 09/19: Tmax 99.9. No acute events overnight. Patient remains ventilator dependent #8.0 Shiley percutaneous tracheostomy placement this a.m. performed, uneventful. Disposition planning in progress. 09/20: Sedated, on mechanical ventilation via tracheostomy. 09/21: Drowsy, easily arousable. On mechanical ventilation via tracheostomy. 09/22: Afebrile. The patient has remained on T piece trials, today greater than 8 hours 09/23: Patient remained on T piece throughout the night, now greater than 24 hours.. Patient tolerating tube feeds, will increase to goal. Patient communicating nodding to yes and no questions. Objective Vital Signs Date Time Temp Pulse Resp B/P (MAP) Pulse Ox O2 Delivery O2 Flow Rate FiO2 09/23/17 10:00 79 09/23/17 08:58 98 T-piece 5.00 09/23/17 08:00 35 09/23/17 08:00 99.3 16 161/76 (104) Intake and Output 09/23/17 09/23/17 09/24/17 08:00 16:00 00:00 Intake Total 649 ml Output Total 900 ml Balance -251 ml Result Diagram: 09/22/17 0500 09/22/17 0500 Other Results Microbiology Date/Time Source Procedure Growth Status 09/20/17 16:35 Sputum Endotracheal Gram Stain - Final Complete 09/20/17 16:35 Sputum Endotracheal Sputum Culture - Final HEAVY GROWTH NORMAL RESPIRATORY ALFREDO Complete 09/20/17 13:10 Wound Abdomen Gram Stain - Final Complete 09/20/17 13:10 Wound Abdomen Wound Culture - Final MODERATE GROWTH NORMAL SKIN ALFREDO... Complete Imaging Last Impressions Chest X-Ray 09/16/17 06 Signed Impressions: Service Date/Time: Saturday, September 16, 2017 04:54 - CONCLUSION: Persistent bilateral patchy pulmonary opacity, decreased on the left. Leonardo Muse MD Head CT 09/10/17 0600 Signed Impressions: Service Date/Time: Sunday, September 10, 2017 04:17 - CONCLUSION: Stable evolving intracranial hemorrhage with no new acute findings. Nacho Krishnan MD Abdomen X-Ray 09/01/17 0000 Signed Impressions: Service Date/Time: Friday, September 01, 2017 18:29 - CONCLUSION: Nasogastric tube coiled in the stomach with the tip projecting towards the GE junction. Migue Cuenca Jr., MD Maxillofacial CT 08/30/17 0000 Signed Impressions: Service Date/Time: August 15:13 - CONCLUSION: 1. There is a minimally depressed right nasal bone fracture with adjacent soft tissue swelling. No other fracture is visualized. 2. Please refer to head CT report for description of the right subdural hematoma. Nacho Buckley MD Lumbar Spine CT 08/30/17 Signed Impressions: Service Date/Time: August 17:59 - CONCLUSION: Negative examination. Alec Latham MD Cervical Spine CT 08/30/17 Signed Impressions: Service Date/Time: August 15:12 - CONCLUSION: 1. No acute fracture or subluxation. Skinny Muñiz MD Last Impressions Chest X-Ray 09/14/17 0000 Signed Impressions: Service Date/Time: Thursday, September 14, 2017 11:33 - CONCLUSION: 1. ET tube right main bronchus with reexpansion right lower lobe. 2. Developing opacity left base.. Stu Huynh MD FACR Head CT 09/10/17 0600 Signed Impressions: Service Date/Time: Sunday, September 10, 2017 04:17 - CONCLUSION: Stable evolving intracranial hemorrhage with no new acute findings. Nacho Krishnan MD Abdomen X-Ray 09/01/17 0000 Signed Impressions: Service Date/Time: Friday, September 01, 2017 18:29 - CONCLUSION: Nasogastric tube coiled in the stomach with the tip projecting towards the GE junction. Migue Cuenca Jr., MD Maxillofacial CT 08/30/17 0000 Signed Impressions: Service Date/Time: August 15:13 - CONCLUSION: 1. There is a minimally depressed right nasal bone fracture with adjacent soft tissue swelling. No other fracture is visualized. 2. Please refer to head CT report for description of the right subdural hematoma. Nacho Buckley MD Lumbar Spine CT 08/30/17 0000 Signed Impressions: Service Date/Time: August 17:59 - CONCLUSION: Negative examination. Alec Latham MD Cervical Spine CT 08/30/17 0000 Signed Impressions: Service Date/Time: August 15:12 - CONCLUSION: 1. No acute fracture or subluxation. Skinny Muñiz MD Objective Remarks GENERAL: 57-year-old AA female, resting in bed, awake communicating by answering yes and no questions on mechanical ventilation via tracheostomy SKIN: Warm and dry. HEAD: Status post right craniotomy with subdural. EYES: Pupils equal and round about 3 mm bilaterally and reactive. No scleral icterus. No injection or drainage.EOMI ENT: No nasal bleeding or discharge. Mucous membranes pink and moist. NECK: Tracheostomy 8.[address] CARDIOVASCULAR: RRR. S1, S2. No S4. Without murmur. No JVD. RESPIRATORY: Clear to auscultation. Breath sounds equal bilaterally. No wheezes, rales or rhonchi GASTROINTESTINAL: Abdomen soft, obese, non-tender, nondistended. PEG tube site C/D/I. Normoactive bowel sounds MUSCULOSKELETAL: Extremities without significant peripheral edema. No obvious deformities. Well perfused. NEUROLOGICAL: GCS 11 T . RASS 0. Alert, arouses on command. Moving extremities 4 on command. Procedures 09/14 PEG placement 09/19 percutaneous tracheostomy 8.0 Shiley Date of Insertion: Sep 01, 2017 Line: Central Venous Catheter Side: Left Location: Internal, Jugular A/P Assessment and Plan Neuro/Psych: s/p right craniotomy with evacuation of subdural hematoma 2.6 cm right parietal/temporal intracranial hemorrhage, 0.9 cm right subdural hemorrhage and bilateral subarachnoid hemorrhage Right subdural hematoma - 1.6 cm fronto temporal with a 3 mm right to left shift Right closed nondisplaced nasal fracture Schizoaffective disorder Bipolar disorder Depression Seizure disorder NOS Keep off sedation as tolerated CT brain 08/30 revealed a right frontal temporal subdural hematoma 1.6 cm thickness with a 3 mm right to left shift. Nondisplaced right nasal bone fracture. CT brain 08/31 revealed 2.6 cm right parietal intracranial hemorrhage, 0.9 cm right subdural hemorrhage and bilateral subarachnoid hemorrhage CT brain 09/01 revealed stable intraparenchymal hemorrhage improving subarachnoid hemorrhage at the convex CT Head 09/05 with stable areas of ICH/ SAH. EEG 08/31 revealed generalized slowing/encephalopathy. Disruption right side secondary to intraparenchymal hemorrhage. Levetiracetam 500 mg IV twice a day for seizure prophylaxis 7 days has been discontinued Resumed home dose of valproic acid 250mg BID via PEG tube. Depakote level 09/15 25 subtherapeutic Repeat Depakote level 09/20 Goal keep systolic blood pressure less than 140. Neurochecks Head of bed at 30 Stopped hypertonic saline 09/05 per neurosurgery. Evaluated by Dr. Aiken/neurosurgery Continue doxepin 10 mg by PEG tube daily Continue acetaminophen 650 mg every 6 hours when necessary fever Holding loratadine 10 mg by PEG tube daily Currently morphine sulfate 2-4 mg every 4 hours discontinued 09/23 [place] 5/325 1-2 tablets PRN dependent on VAS pain score level CV: Hypertension Dyslipidemia Increase metoprolol 100 mg via PEG tube Q6hrly for hypertension on 09/12. Prinivil 20mg BID. Amlodipine 10 mg PEG tube daily Continue isosorbide dinitrate 10 mg 3 times a day with hydralazine 100 mg every 8 hours Clonidine patch 0.3 mg every 7 days added 09/11 As needed labetalol, hydralazine, to keep systolic blood pressure less than 140. Continue atorvastatin 40 mg by mouth daily for dyslipidemia Resp: Previous mechanical vent settings PRVC 16/500/1/5/40 09/22 T Piece trials initiated Ventilator bundle Albuterol/ipratropium aerosols every 6 hours with albuterol aerosols every 2 hours prn dyspnea Percutaneous tracheostomy 09/19 GI: Resume tube feeding with vital 1.5 goal 45 cc, currently at 20 cc/hour post PEG placement. Status post PEG tube Dr. Gilliam 09/13 Famotidine 20 mg by PEG twice a day for GI prophylaxis Docusate sodium/senna twice a day and polyethylene glycol twice a day for bowel regimen. Lactulose 30 cc BID PRN for severe constipation 09/22 KUB- Ileus resolved : Incontinence Porter catheter if indicated for accurate I's and O's in a critically ill patient Continue Tolterodine 2 mg by mouth daily. Endo: Diabetes History of hypothyroidism/thyroid nodules Holding metformin 1000 mg daily and Linagliptin 5 mg daily for diabetes. Sliding-scale insulin with Accu-Cheks to maintain euglycemia Insulin Detemir to 20 units twice a day Renal: History of renal cell carcinoma status post right nephrectomy KVO IVF 09/05 Maintain Porter patient on IV diuretics Monitor urine output Accurate I's and O's Heme: Normocytic anemia Elevated PTT Thrombocytopenia Monitor CBC daily. Follow trends Does not meet transfusion thresholds at this time ID: Sepsis PEG site infection UTI Patient noted to have fevers and left shift with bands noted on peripheral smear. Obtained allen cultures and initiated empiric antibiotic coverage with IV Zosyn 09/09, discontinued on 09/11 as urine culture growing Escherichia coli sensitive to Rocephin. De-escalated to Rocephin 1 g IV daily starting 09/11. PEG site noted to be infected with purulent drainage. Antibiotic brought into Zosyn/vancomycin/micafungin per ID on 09/20. Cultures pending. 09/20 Blood culture Staph epidermidis (possibly contaminant), Gram + cocci FEN: Hypophosphatemia Hypokalemia Replace electrolytes as clinically indicated per ICU electrolyte protocol. Resumed cholecalciferol 1000 U daily. MSK: Osteoarthritis Physical therapy evaluate and treat Access -PIV's x 2 Prophylaxis - GI famotidine - DVT- SCD. Per neurosurgery initiate heparin 5000 u BID (09/16) Dispo: Discussed with ULTRASOUND SPECIALIST at bedside. Patient has tolerated T piece trials greater than 24 hours plan transfer to [facility] in a.m.. Consult neurosurgery regarding possible transfer to neuro MedSurg floor. [facility] Level 2 Physician Audelia Carmichael MD Sep 23, 2017 11:38
[2017-09-23] MEDS: MICAFUNGIN INJ 150 MG in SODIUM CHLORIDE 0.9% INJ 100 ML IV SCH (17:02)
[2017-09-23] MEDS: VANCOMYCIN INJ 1,500 MG in SODIUM CHLORID 0.9% 500 ML INJ 500 ML IV SCH (18:22)
[2017-09-23] MEDS: ATORVASTATIN 40 MG TAB PO SCH (22:53)
[2017-09-23] MEDS: DOXEPIN HCL 10 MG CAP PO SCH (22:55)
[2017-09-24] VITALS (12 sets, daily range): BP systolic 145–159; BP diastolic 67–79; PULSE 52–79; RESP 15–19; TEMP 99.1–99.7; O2SAT 95–100
[2017-09-24] MEDS: hydrALAZINE HCL 100 MG TAB PO SCH ×3 (02:30→17:28)
[2017-09-24] MEDS: CHLORHEXIDINE GLUCONATE 2 % 1 PACK (2 CLOTHS) TOP SCH (02:30)
[2017-09-24] MEDS: METOCLOPRAMIDE HCL 10 MG/2 ML VIAL IV PUSH SCH ×3 (04:54→22:05)
[2017-09-24] MEDS: PIPERACIL-TAZO 4.5 GM PREMIX 100 ML IV SCH ×3 (04:54→17:24)
[2017-09-24 05:13] LABS: HEMATOCRIT 27.3 % (35.0-46.0); MEAN CELL VOLUME 81.2 FL (80.0-100.0); MEAN CORPUSCULAR HEMOGLOBIN 26.3 PG (27.0-34.0); MEAN CORPUSCULAR HGB CONC 32.4 % (32.0-36.0); PLATELET COUNT 468 TH/MM3 (150-450); RED BLOOD COUNT 3.37 MIL/MM3 (4.00-5.30); RED CELL DISTRIBUTION WIDTH 15.5 % (11.6-17.2); REVIEW FLAG FINAL; WHITE BLOOD COUNT 10.1 TH/MM3 (4.0-11.0)
[2017-09-24 05:25] LABS: BICARBONATE 27.7 MEQ/L (21.0-32.0); MAGNESIUM 1.8 MG/DL (1.5-2.5)
[2017-09-24] MEDS: VANCOMYCIN INJ 1,500 MG in SODIUM CHLORID 0.9% 500 ML INJ 500 ML IV SCH ×2 (05:57→17:28)
[2017-09-24] MEDS: INSULIN NovoLIN REGULAR SUPPLEMENTAL SCALE SQ SCH ×4 (05:57→18:00)
[2017-09-24] MEDS: ISOSORBIDE DINITRATE 10 MG TAB PO SCH ×3 (05:57→22:05)
[2017-09-24] MEDS: METOPROLOL TARTRATE 100 MG TAB PO SCH ×3 (05:57→17:28)
[2017-09-24] MEDS: CHLORHEXIDINE 0.12% (ORAL KIT) 15 ML CUP MT SCH ×2 (08:00→20:00)
--- NOTE | 2017-09-24 08:01 | HHI.PR ---
Neuropsych Emotional Emotional: UnabletoAssess: Emotional, Anxious/Fearful, Depressed/Sad, Hostile/ Resentful, Irritable/Angry/Frustrate, Labile, Constricted/Blunted Behavior Behavior: Intact: Impulsive/Agitated Cognitive Cognitive: Unable to Asses: Cognitive, Attention/Concentration, Confused/ Orientation, Insight/Awareness, Judgement/Problem-Solving, Memory Psychosocial Psychosocial: Severe: Psychosocial, Family/Other Adjustment, Realistic Expectation, Unable to Asses: Self-Esteem/Confidence Progress Notes/Response to Tx Contents of Sessions: Adjustment, Level of Consciousness Time with Patient: 15 minutes Premorbid psychological status Premorbid Cognitive, Emotional and Behavioral Status: Unable to Assess. The patient's history is unclear other than she had prior psychiatric diagnoses in the past. Behavioral Reactions of Patient and Family/Support System: Unable to Assess. The patients family is likely experiencing ongoing issues of adjustment given the nature of the injury, and this aspect of recovery will require ongoing monitoring. Emotional/Behavioral Status of Patient and Family/Support System: Unable to Assess. Pertinent issues, if appropriate to this patients clinical care, are described in detail above. Maximizing acute care outcome It is recommended that the patient be monitored for emergent behavioral impulsivity as the medical condition evolves. This patients neuropathological challenges may limit their rehabilitation potential going forward, and these challenges will require specialized therapeutic skills to maximize outcome. Additionally, the patients family is experiencing ongoing issues of adjustment given the traumatic nature of the injury, and they may benefit from ongoing psychological assistance. Anticipated Problems Ongoing areas of concern will include behavioral impulsivity, lack of insight and judgment, which is expected to improve with time and treatment. Presently , the patient remains intubated and sedated. Treatment Plan This clinician will continue to follow with you throughout the course of this patients acute care treatment, and I will be available to meet with the patient s family/support system to facilitate their understanding and the ongoing care of their family member. The goals of neuropsychological intervention shall be both educational and supportive to the family/support system as is deemed clinically appropriate. [facility] Level: V:Confused-non agitated Impression This 57 year old woman is s/p TBI 2T fall on 08/31/2017, who is now intubated and sedated. She has a history of schizoaffective disorder prior to her TBI. Diagnosis: (1) Major neurocognitive disorder as late effect of traumatic brain injury without behavioral disturbance (2) Schizoaffective disorder Status: Acute Progress Note Narrative Ongoing follow-up of patient seen during daily trauma rounds. This is day 25 post injury. She is improving, communicating via yes/no head nods. There have been no neurobehavioral issues. Today, she was resting comfortably. She remains on Valproic Acid 250 BID. She is [place] I will continue to follow. Problem Qualifiers (1) Schizoaffective disorder: Qualified Codes: F25.0 - Schizoaffective disorder, bipolar type Bhavik Crabtree PhD Sep 24, 2017 8:01 am
[2017-09-24] MEDS: CHOLECALCIFEROL (VIT D3) 1000 UNIT TAB PO SCH (08:24)
[2017-09-24] MEDS: DOCUSATE SODIUM 100 MG/10 ML UDC PO SCH ×2 (08:24→21:00)
[2017-09-24] MEDS: LISINOPRIL 20 MG TAB PO SCH ×2 (08:25→21:16)
[2017-09-24] MEDS: SENNOSIDES SYRUP 8.8 MG/5 ML CUP PO SCH ×2 (08:25→21:16)
[2017-09-24] MEDS: FUROSEMIDE 40 MG TAB PO SCH (08:25)
[2017-09-24] MEDS: FAMOTIDINE 20 MG TAB NG SCH ×2 (08:25→21:05)
[2017-09-24] MEDS: HEPARIN SODIUM - SQ 10,000 UNITS/ML VIAL SQ SCH ×2 (08:25→21:16)
[2017-09-24] MEDS: INSULIN DETEMIR 100 UNITS/ML VIAL SQ SCH ×2 (08:25→21:15)
[2017-09-24] MEDS: POLYETHYLENE GLYCOL 17 GM PKG PO SCH ×2 (08:26→21:00)
[2017-09-24] MEDS: VALPROIC ACID SYRUP 250 MG/5 ML UDC OG-TUBE SCH ×2 (08:30→21:15)
[2017-09-24] MEDS: TOLTERODINE TARTRATE 2 MG TAB PO SCH (09:00)
[2017-09-24] MEDS: SODIUM CHLORIDE 0.9% FLUSH 10 ML FLUSH IV FLUSH SCH ×3 (09:00→21:15)
--- NOTE | 2017-09-24 12:09 | HHI.PR ---
Subjective Remarks Patient in nad. Trach in place. No fever ro chills. VSS. Objective Vitals Vital Signs Date Time Temp Pulse Resp B/P (MAP) Pulse Ox O2 Delivery O2 Flow Rate FiO2 09/24/17 12:00 99.5 57 17 145/67 (93) 100 09/24/17 12:00 57 09/24/17 10:00 58 09/24/17 08:00 99.3 63 17 158/70 (99) 100 09/24/17 08:00 63 09/24/17 07:00 100 Trach Collar 28 09/24/17 06:00 71 09/24/17 04:00 99.3 55 15 153/74 (100) 97 09/24/17 04:00 61 09/24/17 02:00 70 09/24/17 00:00 99.1 66 19 155/70 (98) 100 09/24/17 00:00 70 09/23/17 22:00 59 09/23/17 21:50 100 T-piece 5.00 28 09/23/17 20:00 61 09/23/17 20:00 99.3 54 16 122/61 (81) 100 09/23/17 18:00 66 09/23/17 16:00 98.6 83 18 135/63 (87) 100 09/23/17 16:00 83 09/23/17 16:00 35 09/23/17 14:00 55 I/O 09/23/17 09/23/17 09/23/17 09/24/17 09/24/17 09/24/17 07:00 15:00 23:00 07:00 15:00 23:00 Intake Total 749 ml 100 ml 480 ml 1410 ml Output Total 900 ml 850 ml 550 ml Balance -151 ml 100 ml -370 ml 860 ml IV Total 450 ml 100 ml 200 ml 746 ml Tube Feeding 239 ml 280 ml 484 ml Tube Irrigant 60 ml Other 180 ml Output Urine Total 900 ml 850 ml 550 ml # Bowel Movements 2 1 2 Result Diagram: 09/24/1742409/24/17424 Imaging Last Impressions Abdomen X-Ray 09/22/17 0600 Signed Impressions: Service Date/Time: Friday, September 22, 2017 02:46 - CONCLUSION: 1. No evidence of obstruction. Resolved ileus Darius Harris MD Chest X-Ray 09/20/17 0600 Signed Impressions: Service Date/Time: September 05:16 - CONCLUSION: 1. Subsegmental atelectasis right base. There has been no significant change when compared to the prior exam. Darius Harris MD Abdomen/Pelvis CT 09/20/17 0000 Signed Impressions: Service Date/Time: September 20:27 - CONCLUSION: 1. Ileus type bowel gas pattern without free air or free fluid. 2. Prior cholecystectomy. Migue Cuenca Jr., MD Head CT 09/10/17 0600 Signed Impressions: Service Date/Time: Sunday, September 10, 2017 04:17 - CONCLUSION: Stable evolving intracranial hemorrhage with no new acute findings. Nacho Krishnan MD Maxillofacial CT 08/30/17 0000 Signed Impressions: Service Date/Time: , August 30, 2017 15:13 - CONCLUSION: 1. There is a minimally depressed right nasal bone fracture with adjacent soft tissue swelling. No other fracture is visualized. 2. Please refer to head CT report for description of the right subdural hematoma. Nacho Buckley MD Lumbar Spine CT 08/30/17 0000 Signed Impressions: Service Date/Time: August 17:59 - CONCLUSION: Negative examination. Alec Latham MD Cervical Spine CT 08/30/17 0000 Signed Impressions: Service Date/Time: August 15:12 - CONCLUSION: 1. No acute fracture or subluxation. Skinny Muñiz MD Objective Remarks GENERAL: 57-year-old AA female, resting in bed, awake communicating by answering yes and no questions on mechanical ventilation via tracheostomy NECK: Tracheostomy in place, c/d/i CARDIOVASCULAR: RRR. S1, S2. No S4. Without murmur. No JVD. RESPIRATORY: Clear to auscultation. Breath sounds equal bilaterally. No wheezes, rales or rhonchi GASTROINTESTINAL: Abdomen soft, obese, non-tender, nondistended. PEG tube site C/D/I. Normoactive bowel sounds MUSCULOSKELETAL: Extremities without significant peripheral edema. No obvious deformities. Well perfused. NEUROLOGICAL: GCS 11 T . RASS 0. Alert, arouses on command. Moving extremities 4 on command. Procedures 09/14 PEG placement 09/19 percutaneous tracheostomy 8.0 Sarah Date of Insertion: Sep 01, 2017 Line: Central Venous Catheter Side: Left Location: Internal, Jugular A/P Problem List: (1) Subdural hematoma ICD Code: I62.00 - Nontraumatic subdural hemorrhage, unspecified Status: Acute (2) Nasal fracture ICD Code: S02.2XXA - Fracture of nasal bones, initial encounter for closed fracture (3) Normocytic anemia ICD Code: D64.9 - Anemia, unspecified (4) Elevated partial thromboplastin time (PTT) ICD Code: R79.1 - Abnormal coagulation profile (5) Osteoarthritis ICD Code: M19.90 - Unspecified osteoarthritis, unspecified site (6) Hypothyroidism ICD Code: E03.9 - Hypothyroidism, unspecified (7) BMI 36.0-36.9,adult ICD Code: Z68.36 - Body mass index (BMI) 36.0-36.9, adult (8) Urinary incontinence ICD Code: R32 - Unspecified urinary incontinence (9) Diabetes mellitus type 2 in obese ICD Code: E11.69 - Diabetes mellitus type 2 in obese; E66.9 - Obesity, unspecified Status: Acute (10) hypertension Status: Acute (11) Facial contusion ICD Code: S00.83XA - Contusion of other part of head, initial encounter Status: Acute (12) Fall ICD Code: W19.XXXA - Unspecified fall, initial encounter Status: Acute (13) Hyperlipemia ICD Code: E78.5 - Hyperlipidemia, unspecified Status: Chronic (14) Schizoaffective disorder ICD Code: F25.9 - Schizoaffective disorder Status: Acute (15) BMI 36.0-36.9,adult ICD Code: Z68.36 - Body mass index (BMI) 36.0-36.9, adult Assessment and Plan Neuro/Psych: S/p right craniotomy with evacuation of subdural hematoma 2.6 cm right parietal/temporal intracranial hemorrhage, 0.9 cm right subdural hemorrhage and bilateral subarachnoid hemorrhage Right subdural hematoma - 1.6 cm fronto temporal with a 3 mm right to left shift Right closed nondisplaced nasal fracture Schizoaffective disorder Bipolar disorder Depression Seizure disorder NOS Keep off sedation as tolerated CT brain 08/30 revealed a right frontal temporal subdural hematoma 1.6 cm thickness with a 3 mm right to left shift. Nondisplaced right nasal bone fracture. CT brain 08/31 revealed 2.6 cm right parietal intracranial hemorrhage, 0.9 cm right subdural hemorrhage and bilateral subarachnoid hemorrhage CT brain 09/01 revealed stable intraparenchymal hemorrhage improving subarachnoid hemorrhage at the convex CT Head 09/05 with stable areas of ICH/ SAH. EEG 08/31 revealed generalized slowing/encephalopathy. Disruption right side secondary to intraparenchymal hemorrhage. Levetiracetam 500 mg IV twice a day for seizure prophylaxis 7 days has been discontinued Resumed home dose of valproic acid 250mg BID via PEG tube. Depakote level 09/15 25 subtherapeutic Repeat Depakote level 09/20 Goal keep systolic blood pressure less than 140. Neurochecks Head of bed at 30 Stopped hypertonic saline 09/05 per neurosurgery. Evaluated by Dr. Aiken/neurosurgery Continue doxepin 10 mg by PEG tube daily Continue acetaminophen 650 mg every 6 hours when necessary fever Holding loratadine 10 mg by PEG tube daily Currently morphine sulfate 2-4 mg every 4 hours discontinued 09/23 [place] 5/325 1-2 tablets PRN dependent on VAS pain score level CV: Hypertension Dyslipidemia Increase metoprolol 100 mg via PEG tube Q6hrly for hypertension on 09/12. Prinivil 20mg BID. Amlodipine 10 mg PEG tube daily Continue isosorbide dinitrate 10 mg 3 times a day with hydralazine 100 mg every 8 hours Clonidine patch 0.3 mg every 7 days added 09/11 As needed labetalol, hydralazine, to keep systolic blood pressure less than 140. Continue atorvastatin 40 mg by mouth daily for dyslipidemia Resp: Previous mechanical vent settings PRVC 16/500///40 09/22 T Piece trials initiated Ventilator bundle Albuterol/ipratropium aerosols every 6 hours with albuterol aerosols every 2 hours prn dyspnea Percutaneous tracheostomy 09/19 GI: Resume tube feeding with vital 1.5 goal 45 cc, currently at 20 cc/hour post PEG placement. Status post PEG tube Dr. Gilliam 09/13 Famotidine 20 mg by PEG twice a day for GI prophylaxis Docusate sodium/senna twice a day and polyethylene glycol twice a day for bowel regimen. Lactulose 30 cc BID PRN for severe constipation 09/22 KUB- Ileus resolved : Incontinence Porter catheter if indicated for accurate I's and O's in a critically ill patient Continue Tolterodine 2 mg by mouth daily. Endo: Diabetes History of hypothyroidism/thyroid nodules Holding metformin 1000 mg daily and Linagliptin 5 mg daily for diabetes. Sliding-scale insulin with Accu-Cheks to maintain euglycemia Insulin Detemir to 20 units twice a day Renal: History of renal cell carcinoma status post right nephrectomy KVO IVF 09/05 Maintain Porter patient on IV diuretics Monitor urine output Accurate I's and O's Heme: Normocytic anemia Elevated PTT Thrombocytopenia Monitor CBC daily. Follow trends Does not meet transfusion thresholds at this time ID: Sepsis PEG site infection UTI Patient noted to have fevers and left shift with bands noted on peripheral smear. Obtained allen cultures and initiated empiric antibiotic coverage with IV Zosyn 09/09, discontinued on 09/11 as urine culture growing Escherichia coli sensitive to Rocephin. De-escalated to Rocephin 1 g IV daily starting 09/11. PEG site noted to be infected with purulent drainage. Antibiotic brought into Zosyn/vancomycin/micafungin per ID on 09/20. Cultures pending. 09/20 Blood culture Staph epidermidis (possibly contaminant), Gram + cocci FEN: Hypophosphatemia Hypokalemia Replace electrolytes as clinically indicated per ICU electrolyte protocol. Resumed cholecalciferol 1000 U daily. MSK: Osteoarthritis Physical therapy evaluate and treat Access -PIV's x 2 Prophylaxis - GI famotidine - DVT- SCD. Per neurosurgery initiate heparin 5000 u BID (09/16) Dispo: Discussed with SUPERINTENDENT TESTS at bedside. Patient has tolerated T piece trials. Consult neurosurgery regarding possible transfer to neuro MedSurg floor. [facility] Case management consulted and following for DC plan Problem Qualifiers (1) Nasal fracture: Qualified Codes: S02.2XXA - Fracture of nasal bones, initial encounter for closed fracture (2) Osteoarthritis: Qualified Codes: M19.90 - Unspecified osteoarthritis, unspecified site (3) Hypothyroidism: Qualified Codes: E03.9 - Hypothyroidism, unspecified (4) Facial contusion: Qualified Codes: S00.83XA - Contusion of other part of head, initial encounter (5) Fall: Qualified Codes: W19.XXXA - Unspecified fall, initial encounter (6) Hyperlipemia: Qualified Codes: E78.00 - Pure hypercholesterolemia, unspecified (7) Schizoaffective disorder: Qualified Codes: F25.0 - Schizoaffective disorder, bipolar type Genesis Polanco MD Sep 24, 2017 12:09
[2017-09-24] MEDS: MICAFUNGIN INJ 150 MG in SODIUM CHLORIDE 0.9% INJ 100 ML IV SCH (17:27)
[2017-09-24] MEDS: DOXEPIN HCL 10 MG CAP PO SCH (21:16)
[2017-09-24] MEDS: ATORVASTATIN 40 MG TAB PO SCH (21:16)
--- NOTE | 2017-09-24 23:42 | HHI.GIFU ---
Subjective Remarks Patient laying comfortably in bed Objective Vitals I&O Vital Signs Date Time Temp Pulse Resp B/P (MAP) Pulse Ox O2 Delivery O2 Flow Rate FiO2 09/24/17 20:00 52 09/24/17 20:00 100 Trach Collar 28 09/24/17 18:00 79 09/24/17 16:00 62 09/24/17 16:00 99.1 62 15 148/73 (98) 95 09/24/17 14:00 64 09/24/17 12:00 99.5 57 17 145/67 (93) 100 09/24/17 12:00 57 09/24/17 10:00 58 09/24/17 08:00 99.3 63 17 158/70 (99) 100 09/24/17 08:00 63 09/24/17 07:00 100 Trach Collar 28 09/24/17 06:00 71 09/24/17 04:00 99.3 55 15 153/74 (100) 97 09/24/17 04:00 61 09/24/17 02:00 70 09/24/17 00:00 99.1 66 19 155/70 (98) 100 09/24/17 00:00 70 I/O 09/24/17 09/24/17 09/24/17 09/25/17 09/25/17 09/25/17 07:00 15:00 23:00 07:00 15:00 23:00 Intake Total 1410 ml 1834 ml Output Total 550 ml 2500 ml Balance 860 ml -666 ml IV Total 746 ml 1348 ml Tube Feeding 484 ml 486 ml Other 180 ml Output Urine Total 550 ml 2500 ml # Bowel Movements 2 2 Laboratory Laboratory Tests Test 09/24/17 04:25 White Blood Count 10.1 Red Blood Count 3.37 Hemoglobin 8.8 Hematocrit 27.3 Mean Corpuscular Volume 81.2 Mean Corpuscular Hemoglobin 26.3 Mean Corpuscular Hemoglobin Concent 32.4 Red Cell Distribution Width 15.5 Platelet Count 468 Mean Platelet Volume 8.0 Blood Urea Nitrogen 10 Creatinine 0.50 Random Glucose 125 Calcium Level 10.8 Phosphorus Level 2.4 Magnesium Level 1.8 Sodium Level 140 Potassium Level 4.0 Chloride Level 106 Carbon Dioxide Level 27.7 Anion Gap 6 Estimat Glomerular Filtration Rate 153 Date/Time Source Procedure Growth Status 09/20/17 16:51 Blood Peripheral Aerobic Blood Culture - Final Staphylococcus Epidermidis Complete 09/20/17 16:51 Anaerobic Blood Culture - Final Staph Sp Coagulase Negative Complete 09/20/17 16:35 Sputum Endotracheal Gram Stain - Final Complete 09/20/17 16:35 Sputum Endotracheal Sputum Culture - Final HEAVY GROWTH NORMAL RESPIRATORY TYREL Complete 09/09/17 09:42 Urine Catheterized Urine Urine Culture - Final Escherichia Coli Complete 09/20/17 13:10 Wound Abdomen Gram Stain - Final Complete 09/20/17 13:10 Wound Abdomen Wound Culture - Final MODERATE GROWTH NORMAL SKIN TYREL... Complete Physical Exam HEENT: Normocephalic; atraumatic; no jaundice. CHEST: Resp. even/unlabored. Trach. CARDIAC: RRR ABDOMEN: Soft, mildly distended, Mild diffuse tenderness, no hepatosplenomegaly ; bowel sounds are present in all four quadrants. PEG tube site with no active drainage. EXTREMITIES: Generalized edema. SKIN: Normal; no rash; no jaundice. CYLINDER GRINDER: Lethargic Assessment and Plan Plan ASSESSMENT - Reconsulted for drainage at PEG tube site. No drainage noted from PEG tube site today. No redness/swelling. She is on Vancomycin and Zosyn. ID following. PEG site final culture stain shows moderate mixed tyrel with gram negative rods. - Abdominal distention, mild but soft. KUB (09/21/17) ---> 1. Bowel gas pattern characteristic of a hypodynamic ileus 2. Gastrostomy tube projects over the left upper abdominal quadrant. Will start trickle TF and continue Reglan. 2 BMs today. KUB 09/22--No evidence of obstruction. Resolved ileus. - Dysphagia, FEN. Pt currently in the ICU for TBI/SDH/SAH. S/P Craniotomy for evacuation. S/P EGD with PEG tube placement (09/14/17)---> 1. The upper, middle, and distal third of the esophagus were carefully inspected and no abnormalities were noted. The z-line was well seen at the GEJ. The endoscope was pushed into the fundus which was normal including a retroflexed view. The antrum, first and second part of the duodenum were unremarkable. 2. 20 F PEG tube placed successfully. - Resp. Failure. S/P Tracheostomy, on mechanical ventilation - Anemia, HH 9.2/28.7 - S/P Fall, TBI/SDH/SAH, per NSx. PLAN -Advance tube feeds as recommended by dietitian - Continue Reglan 10mg IV q8h - Cont. Vancomycin and Zosyn- ID following - Cont. Miralax - Cont. Senokot - Cont. Colace - Supportive care -Not much to add from a GI standpoint we will sign off Willem Ball MD Sep 24, 2017 23:41
[2017-09-25] VITALS (9 sets, daily range): BP systolic 14–177; BP diastolic 65–81; PULSE 50–74; RESP 9–18; TEMP 98.4–99.3; O2SAT 95–100
[2017-09-25] MEDS: METOPROLOL TARTRATE 100 MG TAB PO SCH ×4 (00:53→17:18)
[2017-09-25] MEDS: PIPERACIL-TAZO 4.5 GM PREMIX 100 ML IV SCH ×4 (00:54→16:21)
[2017-09-25] MEDS: hydrALAZINE HCL 100 MG TAB PO SCH ×3 (01:34→17:33)
[2017-09-25] MEDS: CHLORHEXIDINE GLUCONATE 2 % 1 PACK (2 CLOTHS) TOP SCH (04:00)
[2017-09-25] MEDS: hydrALAZINE HCL 20 MG/ML VIAL IV PUSH PRN (04:29)
[2017-09-25] MEDS: ISOSORBIDE DINITRATE 10 MG TAB PO SCH ×2 (05:18→14:19)
[2017-09-25] MEDS: METOCLOPRAMIDE HCL 10 MG/2 ML VIAL IV PUSH SCH ×2 (05:19→13:11)
[2017-09-25] MEDS ORDERED: PHARMACY ORDERED LAB ONE (05:45)
[2017-09-25] MEDS: INSULIN NovoLIN REGULAR SUPPLEMENTAL SCALE SQ SCH ×4 (06:00→17:31)
[2017-09-25] MEDS: ACETAMINOPHEN/HYDROcodone 325 MG/10 MG TAB PO PRN ×2 (06:20→12:09)
[2017-09-25] MEDS: SODIUM CHLORIDE 0.9% FLUSH 10 ML FLUSH IV FLUSH SCH ×2 (07:46→10:16)
[2017-09-25] MEDS: CHLORHEXIDINE 0.12% (ORAL KIT) 15 ML CUP MT SCH (07:46)
[2017-09-25] MEDS: VANCOMYCIN INJ 1,500 MG in SODIUM CHLORID 0.9% 500 ML INJ 500 ML IV SCH (07:56)
--- NOTE | 2017-09-25 08:14 | HHI.PR ---
Neuropsych Emotional Emotional: UnabletoAssess: Emotional, Anxious/Fearful, Depressed/Sad, Hostile/ Resentful, Irritable/Angry/Frustrate, Labile, Constricted/Blunted Behavior Behavior: Intact: Impulsive/Agitated Cognitive Cognitive: Unable to Asses: Cognitive, Attention/Concentration, Confused/ Orientation, Insight/Awareness, Judgement/Problem-Solving, Memory Psychosocial Psychosocial: Severe: Psychosocial, Family/Other Adjustment, Realistic Expectation, Unable to Asses: Self-Esteem/Confidence Progress Notes/Response to Tx Contents of Sessions: Adjustment, Level of Consciousness Premorbid psychological status Premorbid Cognitive, Emotional and Behavioral Status: Unable to Assess. The patient's history is unclear other than she had prior psychiatric diagnoses in the past. Behavioral Reactions of Patient and Family/Support System: Unable to Assess. The patients family is likely experiencing ongoing issues of adjustment given the nature of the injury, and this aspect of recovery will require ongoing monitoring. Emotional/Behavioral Status of Patient and Family/Support System: Unable to Assess. Pertinent issues, if appropriate to this patients clinical care, are described in detail above. Maximizing acute care outcome It is recommended that the patient be monitored for emergent behavioral impulsivity as the medical condition evolves. This patients neuropathological challenges may limit their rehabilitation potential going forward, and these challenges will require specialized therapeutic skills to maximize outcome. Additionally, the patients family is experiencing ongoing issues of adjustment given the traumatic nature of the injury, and they may benefit from ongoing psychological assistance. Anticipated Problems Ongoing areas of concern will include behavioral impulsivity, lack of insight and judgment, which is expected to improve with time and treatment. Presently , the patient remains intubated and sedated. Treatment Plan This clinician will continue to follow with you throughout the course of this patients acute care treatment, and I will be available to meet with the patient s family/support system to facilitate their understanding and the ongoing care of their family member. The goals of neuropsychological intervention shall be both educational and supportive to the family/support system as is deemed clinically appropriate. [facility] Level: V:Confused-non agitated Impression This 57 year old woman is s/p TBI 2T fall on 08/31/2017, who is now intubated and sedated. She has a history of schizoaffective disorder prior to her TBI. Diagnosis: (1) Major neurocognitive disorder as late effect of traumatic brain injury without behavioral disturbance (2) Schizoaffective disorder Status: Acute Progress Note Narrative Ongoing follow-up of patient seen bedside. This is day 26 post injury. She is stable, non agitated or restless, tolerating tube feeds, following commands. She remains on Valproic Acid 250 BID. She remains [place]. I will continue to follow. Problem Qualifiers (1) Schizoaffective disorder: Qualified Codes: F25.0 - Schizoaffective disorder, bipolar type Bhavik Crabtree PhD Sep 25, 2017 8:14 am
[2017-09-25] MEDS: POLYETHYLENE GLYCOL 17 GM PKG PO SCH (09:00)
[2017-09-25] MEDS: DOCUSATE SODIUM 100 MG/10 ML UDC PO SCH (09:00)
[2017-09-25] MEDS: INSULIN DETEMIR 100 UNITS/ML VIAL SQ SCH (09:00)
[2017-09-25] MEDS: SENNOSIDES SYRUP 8.8 MG/5 ML CUP PO SCH (09:00)
[2017-09-25] MEDS: HEPARIN SODIUM - SQ 10,000 UNITS/ML VIAL SQ SCH (10:17)
[2017-09-25] MEDS: cloNIDine HCL 0.3 MG/24 HR PATCH T-DERMAL SCH (10:17)
[2017-09-25] MEDS: FAMOTIDINE 20 MG TAB NG SCH (10:18)
[2017-09-25] MEDS: FUROSEMIDE 40 MG TAB PO SCH (10:18)
[2017-09-25] MEDS: VALPROIC ACID SYRUP 250 MG/5 ML UDC OG-TUBE SCH (10:18)
[2017-09-25] MEDS: CHOLECALCIFEROL (VIT D3) 1000 UNIT TAB PO SCH (10:18)
[2017-09-25] MEDS: LISINOPRIL 20 MG TAB PO SCH (10:19)
[2017-09-25] MEDS: TOLTERODINE TARTRATE 2 MG TAB PO SCH (10:19)
[2017-09-25] MEDS ORDERED: CLON.3T T-DERMAL (12:51)
[2017-09-25] MEDS ORDERED: AMLO10 OG-TUBE (12:51)
[2017-09-25] MEDS ORDERED: VALP250UDC OG-TUBE (12:51)
[2017-09-25] MEDS ORDERED: FAMO20TA2 NG (12:51)
[2017-09-25] MEDS ORDERED: HYDR-3801 PO (12:51)
--- NOTE | 2017-09-25 12:51 | HHI.DS ---
Discharge Summary Admission Date Aug 30, 2017 at 16:02 Discharge Date: Sep 25, 2017 Admitting Diagnosis Subdural hematoma (1) Subdural hematoma ICD Code: I62.00 - Nontraumatic subdural hemorrhage, unspecified Diagnosis: Principal Status: Acute (2) Nasal fracture ICD Code: S02.2XXA - Fracture of nasal bones, initial encounter for closed fracture Diagnosis: Principal (3) Normocytic anemia ICD Code: D64.9 - Anemia, unspecified Diagnosis: Secondary (4) Elevated partial thromboplastin time (PTT) ICD Code: R79.1 - Abnormal coagulation profile Diagnosis: Principal (5) Osteoarthritis ICD Code: M19.90 - Unspecified osteoarthritis, unspecified site Diagnosis: Secondary (6) Hypothyroidism ICD Code: E03.9 - Hypothyroidism, unspecified Diagnosis: Secondary (7) BMI 36.0-36.9,adult ICD Code: Z68.36 - Body mass index (BMI) 36.0-36.9, adult Diagnosis: Principal (8) Urinary incontinence ICD Code: R32 - Unspecified urinary incontinence Diagnosis: Secondary (9) Diabetes mellitus type 2 in obese ICD Code: E11.69 - Diabetes mellitus type 2 in obese; E66.9 - Obesity, unspecified Diagnosis: Secondary Status: Acute (10) hypertension Diagnosis: Principal Status: Acute (11) Facial contusion ICD Code: S00.83XA - Contusion of other part of head, initial encounter Diagnosis: Principal Status: Acute (12) Fall ICD Code: W19.XXXA - Unspecified fall, initial encounter Diagnosis: Principal Status: Acute (13) Hyperlipemia ICD Code: E78.5 - Hyperlipidemia, unspecified Diagnosis: Secondary Status: Chronic (14) Schizoaffective disorder ICD Code: F25.9 - Schizoaffective disorder Diagnosis: Principal Status: Acute (15) BMI 36.0-36.9,adult ICD Code: Z68.36 - Body mass index (BMI) 36.0-36.9, adult Diagnosis: Secondary Procedures 09/14/17 PEG placement 09/19/17 percutaneous tracheostomy 8.0 Shiley 08/31/17 Right acute subdural hematoma s/p Right frontotemporal parietal craniotomy, evacuation of acute subdural hematoma by Dr Aiken neurosurgery on Brief History - From Admission 57-year-old AA female . Date of admission 08/30/2017. Past medical history includes schizoaffective/bipolar, depression, seizure disorder, hypertension, dyslipidemia, diabetes and allergic rhinitis. She is not on any blood thinners or aspirin. This patient was walking from [place] in approximately 6 AM this morning when she suffered a fall and landed on the right side of her face.. She states she slipped in the wet grass hitting her face on the concrete. No loss of consciousness. Not seizure activity noted. Not tongue biting. No incontinence of stool or urine. 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 Patient states that she's been having a headache and right-sided facial pain since. CT of the brain showed a right frontotemporal subdural hematoma 1.6 cm with a 3 mm right to left shift. Maxillofacial CT revealed a nondisplaced right nasal fracture. CT spine negative. CBC showed normocytic anemia. BMP is pending. Elevated PTT coags at 33. Patient was loaded with 500 mg levetiracetam, given as needed for elevated blood pressure stabilized in the ED. Neurosurgical consultation was requested with Dr. Aiken. CBC/BMP: 09/24/17 0425 09/24/17 0425 Significant Findings Laboratory Tests Test 09/24/17 04:25 09/25/17 06:19 Red Blood Count 3.37 MIL/MM3 (4.00-5.30) Hemoglobin 8.8 GM/DL (11.6-15.3) Hematocrit 27.3 % (35.0-46.0) Mean Corpuscular Hemoglobin 26.3 PG (27.0-34.0) Platelet Count 468 TH/MM3 (150-450) Random Glucose 125 MG/DL (74-106) Calcium Level 10.8 MG/DL (8.5-10.1) Phosphorus Level 2.4 MG/DL (2.5-4.9) Imaging Last Impressions Abdomen X-Ray 09/22/17 0600 Signed Impressions: Service Date/Time: Sunday, September 22, 2017 02:46 - CONCLUSION: 1. No evidence of obstruction. Resolved ileus Darius Harris MD Chest X-Ray 09/20/17 0600 Signed Impressions: Service Date/Time: September 05:16 - CONCLUSION: 1. Subsegmental atelectasis right base. There has been no significant change when compared to the prior exam. Darius Harris MD Abdomen/Pelvis CT 09/20/17 0000 Signed Impressions: Service Date/Time: September 20:27 - CONCLUSION: 1. Ileus type bowel gas pattern without free air or free fluid. 2. Prior cholecystectomy. Migue Cuenca Jr., MD Head CT 09/10/17 0600 Signed Impressions: Service Date/Time: Sunday, September 10, 2017 04:17 - CONCLUSION: Stable evolving intracranial hemorrhage with no new acute findings. Nacho Krishnan MD Maxillofacial CT 08/30/17 0000 Signed Impressions: Service Date/Time: August 15:13 - CONCLUSION: 1. There is a minimally depressed right nasal bone fracture with adjacent soft tissue swelling. No other fracture is visualized. 2. Please refer to head CT report for description of the right subdural hematoma. Nacho Buckley MD Lumbar Spine CT 08/30/17 0000 Signed Impressions: Service Date/Time: August 17:59 - CONCLUSION: Negative examination. Alec Latham MD Cervical Spine CT 08/30/17 0000 Signed Impressions: Service Date/Time: August 15:12 - CONCLUSION: 1. No acute fracture or subluxation. Skinny Muñiz MD PE at Discharge GENERAL: 57-year-old AA female, resting in bed, awake communicating by answering yes and no questions on mechanical ventilation via tracheostomy NECK: Tracheostomy in place, c/d/i CARDIOVASCULAR: RRR. S1, S2. No S4. Without murmur. No JVD. RESPIRATORY: Clear to auscultation. Breath sounds equal bilaterally. No wheezes, rales or rhonchi GASTROINTESTINAL: Abdomen soft, obese, non-tender, nondistended. PEG tube site C/D/I. Normoactive bowel sounds MUSCULOSKELETAL: Extremities without significant peripheral edema. No obvious deformities. Well perfused. NEUROLOGICAL: GCS 11 T . RASS 0. Alert, arouses on command. Moving extremities 4 on command. Hospital Course Neuro/Psych: S/p right craniotomy with evacuation of subdural hematoma 2.6 cm right parietal/temporal intracranial hemorrhage, 0.9 cm right subdural hemorrhage and bilateral subarachnoid hemorrhage Right subdural hematoma - 1.6 cm fronto temporal with a 3 mm right to left shift Right closed nondisplaced nasal fracture Schizoaffective disorder Bipolar disorder Depression Seizure disorder NOS Keep off sedation as tolerated CT brain 08/30 revealed a right frontal temporal subdural hematoma 1.6 cm thickness with a 3 mm right to left shift. Nondisplaced right nasal bone fracture. CT brain 08/31 revealed 2.6 cm right parietal intracranial hemorrhage, 0.9 cm right subdural hemorrhage and bilateral subarachnoid hemorrhage CT brain 09/01 revealed stable intraparenchymal hemorrhage improving subarachnoid hemorrhage at the convex CT Head 09/05 with stable areas of ICH/ SAH. EEG 08/31 revealed generalized slowing/encephalopathy. Disruption right side secondary to intraparenchymal hemorrhage. Levetiracetam 500 mg IV twice a day for seizure prophylaxis 7 days has been discontinued Resumed home dose of valproic acid 250mg BID via PEG tube. Depakote level 09/15 25 subtherapeutic Repeat Depakote level 09/20 Goal keep systolic blood pressure less than 140. Neurochecks Head of bed at 30 Stopped hypertonic saline 09/05 per neurosurgery. Evaluated by Dr. Aiken/neurosurgery Continue doxepin 10 mg by PEG tube daily Continue acetaminophen 650 mg every 6 hours when necessary fever Holding loratadine 10 mg by PEG tube daily Currently morphine sulfate 2-4 mg every 4 hours discontinued 09/23 Leoma 5/325 1-2 tablets PRN dependent on VAS pain score level CV: Hypertension Dyslipidemia Increase metoprolol 100 mg via PEG tube Q6hrly for hypertension on 09/12. Prinivil 20mg BID. Amlodipine 10 mg PEG tube daily Continue isosorbide dinitrate 10 mg 3 times a day with hydralazine 100 mg every 8 hours Clonidine patch 0.3 mg every 7 days added 09/11 As needed labetalol, hydralazine, to keep systolic blood pressure less than 140. Continue atorvastatin 40 mg by mouth daily for dyslipidemia Resp: Previous mechanical vent settings PRVC 16/500/1/5/40 09/22 T Piece trials initiated Ventilator bundle Albuterol/ipratropium aerosols every 6 hours with albuterol aerosols every 2 hours prn dyspnea Percutaneous tracheostomy 09/19 GI: Resume tube feeding with vital 1.5 goal 45 cc, currently at 20 cc/hour post PEG placement. Status post PEG tube Dr. Gilliam 09/13 Famotidine 20 mg by PEG twice a day for GI prophylaxis Docusate sodium/senna twice a day and polyethylene glycol twice a day for bowel regimen. Lactulose 30 cc BID PRN for severe constipation 09/22 KUB- Ileus resolved : Incontinence Porter catheter if indicated for accurate I's and O's in a critically ill patient Continue Tolterodine 2 mg by mouth daily. Endo: Diabetes History of hypothyroidism/thyroid nodules Holding metformin 1000 mg daily and Linagliptin 5 mg daily for diabetes. Sliding-scale insulin with Accu-Cheks to maintain euglycemia Insulin Detemir to 20 units twice a day Renal: History of renal cell carcinoma status post right nephrectomy KVO IVF 09/05 Maintain Porter patient on IV diuretics Monitor urine output Accurate I's and O's Heme: Normocytic anemia Elevated PTT Thrombocytopenia Monitor CBC daily. Follow trends Does not meet transfusion thresholds at this time ID: Sepsis PEG site infection UTI Patient noted to have fevers and left shift with bands noted on peripheral smear. Obtained allen cultures and initiated empiric antibiotic coverage with IV Zosyn 09/09, discontinued on 09/11 as urine culture growing Escherichia coli sensitive to Rocephin. De-escalated to Rocephin 1 g IV daily starting 09/11. PEG site noted to be infected with purulent drainage. Antibiotic brought into Zosyn/vancomycin/micafungin per ID on 09/20. Cultures pending. 09/20 Blood culture Staph epidermidis (possibly contaminant), Gram + cocci FEN: Hypophosphatemia Hypokalemia Replace electrolytes as clinically indicated per ICU electrolyte protocol. Resumed cholecalciferol 1000 U daily. MSK: Osteoarthritis Physical therapy evaluate and treat Access -PIV's x 2 Prophylaxis - GI famotidine - DVT- SCD. Per neurosurgery initiate heparin 5000 u BID (09/16) Dispo: Discussed with CREW CHIEF at bedside. Patient has tolerated T piece trials. Consult neurosurgery regarding possible transfer to neuro MedSurg floor. [facility] Case management consulted and following for DC plan. [facility]. Discussed with Dr Melendez ID specialist. Patient received 6 days of empiric antibiotic. DC all antibiotics and micafungin Pt Condition on Discharge: Stable Discharge Disposition: Disch to Another Hospital Discharge Time: > 30 minutes Discharge Instructions DIET: Follow Instructions for: On Tube Feeding Additional Diet Instructions: Glucerna 1.5 goal rate of 45 Activities you can perform: Regular-No Restrictions Follow up Referrals: Neurology - 1 Week Neurosurgery - 3-5 Days PCP Follow-up - 2-3 Days New Medications: Amlodipine (Norvasc) 10 Mg Tab 10 MG OG-TUBE DAILY for Blood Pressure Management, #30 TAB Clonidine 168 HR Patch ([id number] HR Patch) 0.3 Mg/24 Hr Patch 1 PATCH T-DERMAL Q7D for Blood Pressure Management, #30 PATCH Famotidine (Famotidine) 20 Mg Tab 20 MG NG BID for dyspepsia, #60 TAB Hydralazine (Hydralazine) 100 Mg Tab 100 MG PO Q8H for Blood Pressure Management, #90 TAB Take with meals Valproic Acid (Valproic Acid) 250 Mg/5 Ml (5 Ml) Solution 250 MG OG-TUBE BID for seizures, #60 MG Continued Medications: Atorvastatin (Atorvastatin) 40 Mg Tab 40 MG PO HS for Cholesterol Management, #30 TAB 11 Refills Chlorpromazine (Chlorpromazine) Unknown Strength Tab Unknown Dose PO Q6H PRN for NAUSEA OR VOMITING, TAB 0 Refills Cholecalciferol (Vitamin D3) 1,000 Unit Tab 1000 UNITS PO DAILY for Nutritional Supplement, #1 BOTTLE 0 Refills Divalproex ER (Depakote ER) 500 Mg Daniela 1500 MG PO HS for Control Seizures, #60 TAB 0 Refills Doxepin (Doxepin) 25 Mg Cap 10 MG PO HS, #30 CAP 0 Refills Fluticasone Nasal [place] (Fluticasone Nasal [place]) 50 Mcg/Act Naspr 50 MCG EACH NARE BID for Allergy Management, #1 BOTTLE 5 Refills 50 mcg/spray Furosemide (Furosemide) 40 Mg Tab 40 MG PO DAILY, #30 TAB 5 Refills Insulin Detemir Inj (Levemir Inj) 1,000 unit/ 10 ML Vial 5 UNITS SQ DAILY@0900 for Blood Sugar Management, #1 VIAL 3 Refills Do not mix with any other Insulin. Insulin Detemir Inj (Levemir Inj) 1,000 unit/ 10 ML Vial 15 UNITS SQ HS for Blood Sugar Management, VIAL 0 Refills Do not mix with any other Insulin. Insulin Pen Needle/Easy Comfort 31G X 6mm (Easy Comfort Pen [place] 31G X 6 mm) 1 Mis Mis 1 BOX .ROUTE DIRECTED for Blood Sugar Management, #1 BOX 0 Refills Insulin Syringe/Needle U-100 (Trueplus Insulin Syringe/ 31G X 5/16" 0.5 ml) 1 Mis Mis SYRINGE, #100 3 Refills Isosorbide Mononitrate ER (Isosorbide Mononitrate ER) 30 Mg Daniela 30 MG PO DAILY for Prevent Chest Pain, #30 TAB 11 Refills Levocarnitine l-Tartrate (l-Carnitine) 500 Mg Cap 500 CAP PO DAILY, #30 CAP 5 Refills Linagliptin (Tradjenta) 5 Mg Tab 5 MG PO DAILY for Blood Sugar Management, #90 TAB 3 Refills Lisinopril (Lisinopril) 20 Mg Tab 20 MG PO DAILY, #90 TAB 3 Refills Loratadine (Claritin) 10 Mg Cap 10 MG PO DAILY for Allergy Management, #30 CAP 5 Refills Metformin (Metformin) 1,000 Mg Tab 1000 MG PO BIDPC for Blood Sugar Management, #180 TAB 3 Refills With meals Metoprolol Tartrate (Metoprolol Tartrate) 25 Mg Tab 25 MG PO DAILY, #30 TAB 5 Refills Tolterodine ER (Detrol LA) 2 Mg Cap 2 MG PO DAILY for Urinary Symptom Managemen, #30 CAP 0 Refills Genesis Polanco MD Sep 25, 2017 12:51
--- NOTE | 2017-09-25 16:20 | HHI.IDPN ---
Subjective Subjective Remarks improved abd pain no fever, though Tmax was 99.7 blood clx witrh coag neg staph 1/2 + liquid BMs Antibiotics CFTX Allergies: Coded Allergies: haloperidol (Unverified Allergy, Severe, 08/30/17) olanzapine (Unverified Allergy, Severe, 08/30/17) sertraline (Unverified Allergy, Unknown, 08/30/17) Objective . Vital Signs Date Time Temp Pulse Resp B/P (MAP) Pulse Ox O2 Delivery O2 Flow Rate FiO2 09/25/17 16:00 98.4 59 12 139/67 (91) 100 09/25/17 16:00 59 09/25/17 13:09 13 09/25/17 12:00 74 09/25/17 12:00 99.0 74 14 149/81 (103) 98 09/25/17 08:11 98 Trach Collar 5.00 28 09/25/17 08:00 99.0 50 12 142/67 (92) 98 09/25/17 08:00 52 09/25/17 07:00 98 Trach Collar 28 09/25/17 05:00 14/65 (48) 09/25/17 04:00 99.3 52 9 176/78 (110) 95 09/25/17 04:00 52 09/25/17 02:00 62 09/25/17 01:05 98 Trach Collar 28 09/25/17 00:00 99.3 58 18 177/79 (111) 100 09/25/17 00:00 58 09/24/17 22:00 52 09/24/17 20:00 52 09/24/17 20:00 99.7 52 19 159/79 (105) 100 09/24/17 20:00 100 Trach Collar 28 09/24/17 18:00 79 09/25/17 09/25/17 09/26/17 15:00 23:00 07:00 Intake Total 615 ml Balance 615 ml IV Total 615 ml . Laboratory Tests Test 09/24/17 04:25 White Blood Count 10.1 TH/MM3 Red Blood Count 3.37 MIL/MM3 Hemoglobin 8.8 GM/DL Hematocrit 27.3 % Mean Corpuscular Volume 81.2 FL Mean Corpuscular Hemoglobin 26.3 PG Mean Corpuscular Hemoglobin Concent 32.4 % Red Cell Distribution Width 15.5 % Platelet Count 468 TH/MM3 Mean Platelet Volume 8.0 FL Laboratory Tests Test 09/24/17 04:25 Blood Urea Nitrogen 10 MG/DL Creatinine 0.50 MG/DL Random Glucose 125 MG/DL Calcium Level 10.8 MG/DL Phosphorus Level 2.4 MG/DL Magnesium Level 1.8 MG/DL Sodium Level 140 MEQ/L Potassium Level 4.0 MEQ/L Chloride Level 106 MEQ/L Carbon Dioxide Level 27.7 MEQ/L Anion Gap 6 MEQ/L Estimat Glomerular Filtration Rate 153 ML/MIN Imaging Last Impressions Chest X-Ray 09/20/17 0600 Signed Impressions: Service Date/Time: September 05:16 - CONCLUSION: 1. Subsegmental atelectasis right base. There has been no significant change when compared to the prior exam. Darius Harris MD Abdomen/Pelvis CT 09/20/17 0000 Signed Impressions: Service Date/Time: September 20:27 - CONCLUSION: 1. Ileus type bowel gas pattern without free air or free fluid. 2. Prior cholecystectomy. Migue Cuenca Jr., MD Abdomen X-Ray 09/20/17 0000 Signed Impressions: Service Date/Time: September 13:33 - CONCLUSION: 1. Bowel gas pattern characteristic of a hypodynamic ileus. 2. Gastrostomy tube projects over the left upper abdominal quadrant. Charles Brian MD Head CT 09/10/17 0600 Signed Impressions: Service Date/Time: Sunday, September 10, 2017 04:17 - CONCLUSION: Stable evolving intracranial hemorrhage with no new acute findings. Nacho Krishnan MD Maxillofacial CT 08/30/17 0000 Signed Impressions: Service Date/Time: August 15:13 - CONCLUSION: 1. There is a minimally depressed right nasal bone fracture with adjacent soft tissue swelling. No other fracture is visualized. 2. Please refer to head CT report for description of the right subdural hematoma. Nacho Buckley MD Lumbar Spine CT 08/30/17 0000 Signed Impressions: Service Date/Time: August 17:59 - CONCLUSION: Negative examination. Alec Latham MD Cervical Spine CT 08/30/17 0000 Signed Impressions: Service Date/Time: August 15:12 - CONCLUSION: 1. No acute fracture or subluxation. Skinny Muñiz MD Physical Exam CONSTITUTIONAL/GENERAL: This is an obese female patient, in no apparent distress. TUBES/LINES/DRAINS: SKIN: No jaundice, rashes, or lesions. Skin temperature appropriate. Not diaphoretic. HEAD: R parietal incision - dry, clean EYES: Pupils equal and round and reactive. Extraocular motions intact. No scleral icterus. No injection or drainage. Fundi not examined. ENT: Hearing grossly normal. Nose without bleeding or purulent drainage. Oral mucosae without visible erythema, exudates, masses, or lesions. NECK: Trach in place Supple, nontender. No palpable thyroid enlargement or nodularity. CARDIOVASCULAR: Regular rate and rhythm without murmurs, gallops, or rubs. No JVD. Peripheral pulses symmetric. RESPIRATORY/CHEST: Symmetric, unlabored respirations. Clear to auscultation. Breath sounds equal bilaterally. No wheezes, rales, or rhonchi. GASTROINTESTINAL: Abdomen soft, diffusely tender, at least moderately distended. No hepato-splenomegaly, or palpable masses. No guarding. Bowel sounds present. PEG inplace with no drainage on the dressing GENITOURINARY: Without palpable bladder distension. Porter catheter in place with clear yellow MUSCULOSKELETAL: Extremities without clubbing, cyanosis, or edema. No joint tenderness or effusion noted. No calf tenderness. No mottling or clubbing. NEURO: fully awake and alert, follows commands x 4 and is conversant PSYCHIATRIC: calm, pleasant Assessment & Plan Remarks Intracranial bleed, sp trauma Acute VDRF sp trach Low grade fever - resolved Leukocytosis - resolved E.coli UTI, on CFTX on admission - resolved New hypotensive episode, resolved New ileus - resolved KUB with hypodynamic ileus. - CT A/P unremarkable - c.diff neg PEG site drainage - doubt infx - drainage with nl skin tyrel growth Low grade coag negative staph bactremia, cw contaminant Pt completed 6 days of empiric broad spectrum abx , clinically improved, all clx are negative abx aside from coag neg staph pseudobacteremia dc zosyn, vanco, micafungin monitor WBC, clinical status OK to transfer dw Dacia Beck RN, MD Sep 25, 2017 16:20
[2017-09-25] MEDS ORDERED: VANCOMYCIN INJ 2,000 MG in SODIUM CHLORID 0.9% 500 ML INJ 500 ML IV SCH (18:00)
--- NOTE | 2017-09-25 18:07 | HHI.PR ---
Subjective Remarks More awake and alert. appears in nad .No complaints at this time. Vital signs appears stable. Case gokul following for DC plan. Objective Vitals Vital Signs Date Time Temp Pulse Resp B/P (MAP) Pulse Ox O2 Delivery O2 Flow Rate FiO2 09/25/17 16:00 98.4 59 12 139/67 (91) 100 09/25/17 16:00 59 09/25/17 13:09 13 09/25/17 12:00 74 09/25/17 12:00 99.0 74 14 149/81 (103) 98 09/25/17 08:11 98 Trach Collar 5.00 28 09/25/17 08:00 99.0 50 12 142/67 (92) 98 09/25/17 08:00 52 09/25/17 07:00 98 Trach Collar 28 09/25/17 05:00 14/65 (48) 09/25/17 04:00 99.3 52 9 176/78 (110) 95 09/25/17 04:00 52 09/25/17 02:00 62 09/25/17 01:05 98 Trach Collar 28 09/25/17 00:00 99.3 58 18 177/79 (111) 100 09/25/17 00:00 58 09/24/17 22:00 52 09/24/17 20:00 52 09/24/17 20:00 99.7 52 19 159/79 (105) 100 09/24/17 20:00 100 Trach Collar 28 I/O 09/24/17 09/24/17 09/24/17 09/25/17 09/25/17 09/25/17 07:00 15:00 23:00 07:00 15:00 23:00 Intake Total 1410 ml 1834 ml 931 ml 615 ml 100 ml Output Total 550 ml 2500.0 ml 900 ml Balance 860 ml -666.0 ml 31 ml 615 ml 100 ml IV Total 746 ml 1348 ml 260 ml 615 ml 100 ml Tube Feeding 484 ml 486 ml 671 ml Other 180 ml Output Urine Total 550 ml 2500 ml 900 ml Tube Feeding Residual Discard 0 ml 0 ml # Bowel Movements 2 2 1 Result Diagram: 09/24/1742409/24/17424 Imaging Last Impressions Abdomen X-Ray 09/22/17 0600 Signed Impressions: Service Date/Time: Friday, September 22, 2017 02:46 - CONCLUSION: 1. No evidence of obstruction. Resolved ileus Darius Harris MD Chest X-Ray 09/20/17 0600 Signed Impressions: Service Date/Time: September 05:16 - CONCLUSION: 1. Subsegmental atelectasis right base. There has been no significant change when compared to the prior exam. Darius Harris MD Abdomen/Pelvis CT 09/20/17 0000 Signed Impressions: Service Date/Time: September 20:27 - CONCLUSION: 1. Ileus type bowel gas pattern without free air or free fluid. 2. Prior cholecystectomy. Migue Cuenca Jr., MD Head CT 09/10/17 0600 Signed Impressions: Service Date/Time: Sunday, September 10, 2017 04:17 - CONCLUSION: Stable evolving intracranial hemorrhage with no new acute findings. Nacho Krishnan MD Maxillofacial CT 08/30/17 0000 Signed Impressions: Service Date/Time: August 15:13 - CONCLUSION: 1. There is a minimally depressed right nasal bone fracture with adjacent soft tissue swelling. No other fracture is visualized. 2. Please refer to head CT report for description of the right subdural hematoma. Nacho Buckley MD Lumbar Spine CT 08/30/17 0000 Signed Impressions: Service Date/Time: August 17:59 - CONCLUSION: Negative examination. Alec Latham MD Cervical Spine CT 08/30/17 0000 Signed Impressions: Service Date/Time: August 15:12 - CONCLUSION: 1. No acute fracture or subluxation. Skinny Muñiz MD Objective Remarks GENERAL: 57-year-old AA female, resting in bed, awake communicating by answering yes and no questions on mechanical ventilation via tracheostomy NECK: Tracheostomy in place, c/d/i CARDIOVASCULAR: RRR. S1, S2. No S4. Without murmur. No JVD. RESPIRATORY: Clear to auscultation. Breath sounds equal bilaterally. No wheezes, rales or rhonchi GASTROINTESTINAL: Abdomen soft, obese, non-tender, nondistended. PEG tube site C/D/I. Normoactive bowel sounds MUSCULOSKELETAL: Extremities without significant peripheral edema. No obvious deformities. Well perfused. NEUROLOGICAL: GCS 11 T . RASS 0. Alert, arouses on command. Moving extremities 4 on command. Procedures 09/14 PEG placement 09/19 percutaneous tracheostomy 8.0 Sarah Date of Insertion: Sep 01, 2017 Line: Central Venous Catheter Side: Left Location: Internal, Jugular A/P Problem List: (1) Subdural hematoma ICD Code: I62.00 - Nontraumatic subdural hemorrhage, unspecified Status: Acute (2) Nasal fracture ICD Code: S02.2XXA - Fracture of nasal bones, initial encounter for closed fracture (3) Normocytic anemia ICD Code: D64.9 - Anemia, unspecified (4) Elevated partial thromboplastin time (PTT) ICD Code: R79.1 - Abnormal coagulation profile (5) Osteoarthritis ICD Code: M19.90 - Unspecified osteoarthritis, unspecified site (6) Hypothyroidism ICD Code: E03.9 - Hypothyroidism, unspecified (7) BMI 36.0-36.9,adult ICD Code: Z68.36 - Body mass index (BMI) 36.0-36.9, adult (8) Urinary incontinence ICD Code: R32 - Unspecified urinary incontinence (9) Diabetes mellitus type 2 in obese ICD Code: E11.69 - Diabetes mellitus type 2 in obese; E66.9 - Obesity, unspecified Status: Acute (10) hypertension Status: Acute (11) Facial contusion ICD Code: S00.83XA - Contusion of other part of head, initial encounter Status: Acute (12) Fall ICD Code: W19.XXXA - Unspecified fall, initial encounter Status: Acute (13) Hyperlipemia ICD Code: E78.5 - Hyperlipidemia, unspecified Status: Chronic (14) Schizoaffective disorder ICD Code: F25.9 - Schizoaffective disorder Status: Acute (15) BMI 36.0-36.9,adult ICD Code: Z68.36 - Body mass index (BMI) 36.0-36.9, adult Assessment and Plan Neuro/Psych: S/p right craniotomy with evacuation of subdural hematoma 2.6 cm right parietal/temporal intracranial hemorrhage, 0.9 cm right subdural hemorrhage and bilateral subarachnoid hemorrhage Right subdural hematoma - 1.6 cm fronto temporal with a 3 mm right to left shift Right closed nondisplaced nasal fracture Schizoaffective disorder Bipolar disorder Depression Seizure disorder NOS Keep off sedation as tolerated CT brain 08/30 revealed a right frontal temporal subdural hematoma 1.6 cm thickness with a 3 mm right to left shift. Nondisplaced right nasal bone fracture. CT brain 08/31 revealed 2.6 cm right parietal intracranial hemorrhage, 0.9 cm right subdural hemorrhage and bilateral subarachnoid hemorrhage CT brain 09/01 revealed stable intraparenchymal hemorrhage improving subarachnoid hemorrhage at the convex CT Head 09/05 with stable areas of ICH/ SAH. EEG 08/31 revealed generalized slowing/encephalopathy. Disruption right side secondary to intraparenchymal hemorrhage. Levetiracetam 500 mg IV twice a day for seizure prophylaxis 7 days has been discontinued Resumed home dose of valproic acid 250mg BID via PEG tube. Depakote level 09/15 25 subtherapeutic Repeat Depakote level 09/20 Goal keep systolic blood pressure less than 140. Neurochecks Head of bed at 30 Stopped hypertonic saline 09/05 per neurosurgery. Evaluated by Dr. Aiken/neurosurgery Continue doxepin 10 mg by PEG tube daily Continue acetaminophen 650 mg every 6 hours when necessary fever Holding loratadine 10 mg by PEG tube daily Currently morphine sulfate 2-4 mg every 4 hours discontinued 09/23 [place] 5/325 1-2 tablets PRN dependent on VAS pain score level CV: Hypertension Dyslipidemia Increase metoprolol 100 mg via PEG tube Q6hrly for hypertension on 09/12. Prinivil 20mg BID. Amlodipine 10 mg PEG tube daily Continue isosorbide dinitrate 10 mg 3 times a day with hydralazine 100 mg every 8 hours Clonidine patch 0.3 mg every 7 days added 09/11 As needed labetalol, hydralazine, to keep systolic blood pressure less than 140. Continue atorvastatin 40 mg by mouth daily for dyslipidemia Resp: Previous mechanical vent settings PRVC 16/500/1/5/40 09/22 T Piece trials initiated Ventilator bundle Albuterol/ipratropium aerosols every 6 hours with albuterol aerosols every 2 hours prn dyspnea Percutaneous tracheostomy 09/19 GI: Resume tube feeding with vital 1.5 goal 45 cc, currently at 20 cc/hour post PEG placement. Status post PEG tube Dr. Gilliam 09/13 Famotidine 20 mg by PEG twice a day for GI prophylaxis Docusate sodium/senna twice a day and polyethylene glycol twice a day for bowel regimen. Lactulose 30 cc BID PRN for severe constipation 09/22 KUB- Ileus resolved : Incontinence Porter catheter if indicated for accurate I's and O's in a critically ill patient Continue Tolterodine 2 mg by mouth daily. Endo: Diabetes History of hypothyroidism/thyroid nodules Holding metformin 1000 mg daily and Linagliptin 5 mg daily for diabetes. Sliding-scale insulin with Accu-Cheks to maintain euglycemia Insulin Detemir to 20 units twice a day Renal: History of renal cell carcinoma status post right nephrectomy KVO IVF 09/05 Maintain Porter patient on IV diuretics Monitor urine output Accurate I's and O's Heme: Normocytic anemia Elevated PTT Thrombocytopenia Monitor CBC daily. Follow trends Does not meet transfusion thresholds at this time ID: Sepsis PEG site infection UTI Patient noted to have fevers and left shift with bands noted on peripheral smear. Obtained allen cultures and initiated empiric antibiotic coverage with IV Zosyn 09/09, discontinued on 09/11 as urine culture growing Escherichia coli sensitive to Rocephin. De-escalated to Rocephin 1 g IV daily starting 09/11. PEG site noted to be infected with purulent drainage. Antibiotic brought into Zosyn/vancomycin/micafungin per ID on 09/20. Cultures pending. 09/20 Blood culture Staph epidermidis (possibly contaminant), Gram + cocci FEN: Hypophosphatemia Hypokalemia Replace electrolytes as clinically indicated per ICU electrolyte protocol. Resumed cholecalciferol 1000 U daily. MSK: Osteoarthritis Physical therapy evaluate and treat Access -PIV's x 2 Prophylaxis - GI famotidine - DVT- SCD. Per neurosurgery initiate heparin 5000 u BID (09/16) Dispo: Discussed with REWRITER at bedside. Patient has tolerated T piece trials. Consult neurosurgery regarding possible transfer to neuro MedSurg floor. [facility] Case management consulted and following for DC plan. [facility]ed [facility]. Discussed with Dr Melendez ID specialist. Patient received 6 days of empiric antibiotic. DC all antibiotics and micafungin Problem Qualifiers (1) Nasal fracture: Qualified Codes: S02.2XXA - Fracture of nasal bones, initial encounter for closed fracture (2) Osteoarthritis: Qualified Codes: M19.90 - Unspecified osteoarthritis, unspecified site (3) Hypothyroidism: Qualified Codes: E03.9 - Hypothyroidism, unspecified (4) Facial contusion: Qualified Codes: S00.83XA - Contusion of other part of head, initial encounter (5) Fall: Qualified Codes: W19.XXXA - Unspecified fall, initial encounter (6) Schizoaffective disorder: Qualified Codes: F25.0 - Schizoaffective disorder, bipolar type Genesis Polanco MD Sep 25, 2017 18:06
[2017-09-27] MEDS ORDERED: PHARMACY ORDERED LAB ONE (05:45)
== END 2017-09-25 19:10 | DRG 3 ==
LOC: NEPC 13:38 → NEDA 16:02 → N03A 18:14
PROVIDERS: ADMIT Hospitalist; ATTEND Hospitalist
PROC: 00C40ZZ Extirpation of Matter from Intracranial Subdural Space, Open Approach (ICD-10-PCS; principal; 2017-08-31 14:30)
PROC: 5A1955Z Respiratory Ventilation, Greater than 96 Consecutive Hours (ICD-10-PCS; 2017-09-01)
PROC: 05HN33Z Insertion of Infusion Device into Left Internal Jugular Vein, Percutaneous Approach (ICD-10-PCS; 2017-09-01)
PROC: 0BH17EZ Insertion of Endotracheal Airway into Trachea, Via Natural or Artificial Opening (ICD-10-PCS; 2017-09-01)
PROC: 0DH63UZ Insertion of Feeding Device into Stomach, Percutaneous Approach (ICD-10-PCS; 2017-09-13)
PROC: 0BH17EZ Insertion of Endotracheal Airway into Trachea, Via Natural or Artificial Opening (ICD-10-PCS; 2017-09-14)
PROC: 5A1955Z Respiratory Ventilation, Greater than 96 Consecutive Hours (ICD-10-PCS; 2017-09-14)
PROC: 0B113F4 Bypass Trachea to Cutaneous with Tracheostomy Device, Percutaneous Approach (ICD-10-PCS; 2017-09-19)
PROC: 0BJ08ZZ Inspection of Tracheobronchial Tree, Via Natural or Artificial Opening Endoscopic (ICD-10-PCS; 2017-09-19)
DX: S06.5X0A Traumatic subdural hemorrhage without loss of consciousness, initial encounter (principal); G93.6 Cerebral edema; G93.40 Encephalopathy, unspecified; R13.10 Dysphagia, unspecified; D69.6 Thrombocytopenia, unspecified; I95.9 Hypotension, unspecified; K56.7 Ileus, unspecified; E11.65 Type 2 diabetes mellitus with hyperglycemia; J96.00 Acute respiratory failure, unspecified whether with hypoxia or hypercapnia; Z99.11 Dependence on respirator [ventilator] status; N39.0 Urinary tract infection, site not specified; J98.11 Atelectasis; K94.23 Gastrostomy malfunction; E83.39 Other disorders of phosphorus metabolism; F25.0 Schizoaffective disorder, bipolar type; I10 Essential (primary) hypertension; S02.2XXA Fracture of nasal bones, initial encounter for closed fracture; D64.9 Anemia, unspecified; S06.6X0A Traumatic subarachnoid hemorrhage without loss of consciousness, initial encounter; E04.2 Nontoxic multinodular goiter; E03.9 Hypothyroidism, unspecified; W01.0XXA Fall on same level from slipping, tripping and stumbling without subsequent striking against object, initial encounter; M19.90 Unspecified osteoarthritis, unspecified site; R79.1 Abnormal coagulation profile; R32 Unspecified urinary incontinence; E66.9 Obesity, unspecified; G40.909 Epilepsy, unspecified, not intractable, without status epilepticus; E78.00 Pure hypercholesterolemia, unspecified; B96.20 Unspecified Escherichia coli [E. coli] as the cause of diseases classified elsewhere; E87.6 Hypokalemia; R41.9 Unspecified symptoms and signs involving cognitive functions and awareness; Z68.36 Body mass index [BMI] 36.0-36.9, adult; Z87.891 Personal history of nicotine dependence; Z85.528 Personal history of other malignant neoplasm of kidney; Z90.5 Acquired absence of kidney; Z79.4 Long term (current) use of insulin
CPT/HCPCS: 31500; 31600; 31624; 36556; 36600; 36620; 70450; 70486; 71010; 72125; 72131; 74000; 74176; 76937; 80048; 80053; 80164; 80202; 81001; 82805; 82948; 83735; 83930; 84100; 84132; 84295; 85007; 85025; 85027; 85384; 85610; 85730; 86403; 86850; 86900; 86901; 87040; 87070; 87077; 87086; 87186; 87205; 87493; 87641; 88304; 90471; 90714; 93005; 94002; 94003; 94150; 94640; 94770; 95819; C1713; J0360; J0690; J0696; J1100; J1580; J1644; J1953; J2248; J2250; J2270; J2370; J2405; J2543; J2710; J2765; J3010; J3370; J3475; J3480; J7030; J7040; J7050; J7613; Q9963